=== PATIENT | male | born 1955 | race Caucasian/White ===

== ENCOUNTER → 2021-08-26 08:08 | Outpatient (BNVA) | payer BC, MEDICARE, SELFPAY | PROVIDERS: PCP Internal Medicine; Referring Provider Internal Medicine; Visit Provider Nurse Practitioner Family ==

== ENCOUNTER 2021-12-21 08:06 | Day surgery (SDC) | payer MEDICARE, SELFPAY ==
[2021-12-15 15:25] VITALS: BMI 27.8
--- NOTE | 2021-12-20 10:13 | P.CONAN_ITS ---
Documented by User: Brenda Hernandez NP 12/20/21 10:14 HPI - Anesthesia Eval Consult details Narrative: 66yo M for Upper Endoscopy and Colonoscopy [facility] Past Medical History Medical History (Updated 08/26/21 @ 08:31 by ANGEL Erazo) GERD (gastroesophageal reflux disease) HTN (hypertension) Family History Family History (Updated 08/26/21 @ 08:32 by ANGEL Erazo) Father HTN (hypertension) Mother Cancer Sister Cancer Surgical History Surgical History (Updated 08/26/21 @ 08:31 by ANGEL Erazo) History of esophagogastroduodenoscopy (EGD) Hx of hernia repair Social History Social History Patient Tobacco Use Status: Former Tobacco user Quit Date: 2015 Use of substances other than those prescribed or required for medical reasons: No Are you DNR?: No Advance Directives: No Advance Directives Information Provided: Yes Meds Allergies Allergy/AdvReac Type Severity Reaction Status Date / Time ibuprofen Allergy Mild tongue Verified 08/26/21 08:29 swelling Home Medications Medication Instructions Recorded Confirmed Last Taken Type amlodipine 5 mg tablet 5 mg PO DAILY 08/26/21 12/15/21 12/21/21 History atenolol 25 mg tablet 25 mg PO DAILY 08/26/21 12/15/21 12/21/21 History furosemide 20 mg tablet 20 mg PO DAILY 08/26/21 12/15/21 Unknown History losartan 100 mg tablet 100 mg PO DAILY 08/26/21 12/15/21 Unknown History pantoprazole 40 mg tablet,delayed 40 mg PO DAILY 08/26/21 12/15/21 Unknown History release Exam Exam Date and Time: December 20, 2021 1013 Height,Weight and Vital Signs: Height 5 ft 8 in Weight 83.007 kg Assessment and Plan Assessment Anesthesia Assessment: Chart Reviewed Documented by User: Manny Nicole MD 12/21/21 08:58 [facility] Past Medical History Medical History (Updated 08/26/21 @ 08:31 by ANGEL Erazo) GERD (gastroesophageal reflux disease) HTN (hypertension) Family History Family History (Updated 08/26/21 @ 08:32 by ANGEL Erazo) Father HTN (hypertension) Mother Cancer Sister Cancer Family history of problems with anesthesia: No Surgical History Surgical History (Updated 08/26/21 @ 08:31 by ANGEL Erazo) History of esophagogastroduodenoscopy (EGD) Hx of hernia repair History of Problems with Anesthesia: No Social History Social History Patient Tobacco Use Status: Former Tobacco user Quit Date: 2015 Use of substances other than those prescribed or required for medical reasons: No Are you DNR?: No Advance Directives: No Advance Directives Information Provided: Yes Meds Allergies Allergy/AdvReac Type Severity Reaction Status Date / Time ibuprofen Allergy Mild tongue Verified 08/26/21 08:29 swelling Home Medications Medication Instructions Recorded Confirmed Last Taken Type amlodipine 5 mg tablet 5 mg PO DAILY 08/26/21 12/15/21 12/21/21 History atenolol 25 mg tablet 25 mg PO DAILY 08/26/21 12/15/21 12/21/21 History furosemide 20 mg tablet 20 mg PO DAILY 08/26/21 12/15/21 Unknown History losartan 100 mg tablet 100 mg PO DAILY 08/26/21 12/15/21 Unknown History pantoprazole 40 mg tablet,delayed 40 mg PO DAILY 08/26/21 12/15/21 Unknown History release Exam Airway Mallampati Class: II TM Dist: >3cm Neck ROM: Full Denture: Upper Loose/Missing/Broken Teeth: Yes Assessment and Plan Assessment Anesthesia Assessment: Anesthesia Plan Discussed Final Anesthetic Review Family History of Problems with Anesthesia: No History of Problems with Anesthesia: No NPO: Yes ASA Class: II Final Preanesthetic Review: No Changes in Pt Med Stat, Meds/Allgs Chart Re viewed, Consent Obtained/Reviewed and Anes Risks/Benef Reviewed Patient Risk: Low Procedure Risk: Low Anesthetic Plan Anesthetic Plan: MAC: Disposition: Standard PACU
[2021-12-21 08:26] VITALS: BP 155/76; PULSE 60; RESP 16; TEMP 36.2; O2SAT 99
--- NOTE | 2021-12-21 08:31 | MHC.SHP ---
Pre-Procedural Eval Section A Date of Service: 12/21/21 Section B Chief Complaint: GERD, pos stool occult test Details of Present Illness: stool occult pos Relevant Family History (Specify if Yes): No Relevant Social History: Alcohol Use (daily beer) Present Medications: see Short Stay Collaborative assessment Medical History: Significant History (GERD, HTN) History of Previous Operations: Relevant previous surgery/procedure and date(s) (History of esophagogastroduodenoscopy (EGD) Hx of hernia repair) Allergies: Allergies Allergy/AdvReac Type Severity Reaction Status Date / Time ibuprofen Allergy Mild tongue Verified 08/26/21 08:29 swelling Review of Systems Sugical H&P ROS: Negative: Constitution, Cardiovascular, Respiratory, Neurological, Psychiatric, Hem-Onc, Allergic/Immunologic, Gastrointestinal, Genitourinary, Musculoskeletal, Integumentary, Endocrine and Eyes/Ears/Nose/Throat Exam Surgical H&P Exam: Normal: HEENT, Normal: Heart, Normal: Lungs, Normal: Extremities, Normal: Abdomen, Normal: Skin and Normal: Neurological Plan Diagnosis/Plan: Unchanged I have reviewed the history and physical and performed a pertinent physical examination on my patient. No changes have occurred unless specified.
[2021-12-21] MEDS: Lactated Ringers 1,000 ML 100 ML IVCONT (08:32)
--- NOTE | 2021-12-21 09:15 | P.OP_ITS ---
Operative Note Operative Note Date of Service: 12/21/21 Narrative: Operative Information Procedure Description: EGD, Colonoscopy Indication: GERD, pos stool occult test Anesthesia: MAC FLEXIBLE TRANSORAL UPPER GASTROINTESTINAL ENDOSCOPY AND COLONOSCOPY PROCEDURE NOTE UPPER ENDOSCOPY Consent: Indications for the procedure and potential complications of bleeding, perforation, reaction to medications and missed diagnosis were discussed with the patient and informed consent was obtained. Instrument: Olympus GIF H 190 J mid size upper endoscope Monitoring: Vital signs and clinical assessment, continuous EKG monitoring, Pulse oximetry, Carbon Dioxide monitoring and blood pressure monitoring were done throughout the procedure. Procedure: The patient was placed in the left lateral decubitis position and pre-procedure medications were administered and a bite block was placed. The endoscope was inserted into the mouth and advanced under direct vision to the third part of duodenum. A careful inspection was made as the upper endoscope was withdrawn including a retroflexed examination of the proximal stomach; Findings and interventions are described below. Findings: Larynx:normal Esophagus: GE junction at 40 cm, diaphragm hiatus at 40 cm, tongues of salmon pink mucosa, possible barretts, bx taken Stomach: Patchy erythema. Biopsies were obtained. Grade 2 flap valve on retroflexed examination of the cardia. Duodenum: Normal bulb and descending duodenum, Intervention: Biopsies as noted above COLONOSCOPY Instrument: Olympus variable stiffness adult scope 190L Colonoscopy Monitoring: Vital signs and clinical assessment, continuous EKG monitoring, Pulse oximetry, Carbon Dioxide monitoring and blood pressure monitoring were done throughout the procedure. Colon withdrawal time was 32 minutes. Procedure: The patient was placed in the left lateral decubitis position and pre-procedure medications were administered. After a digital rectal examination of the ano-rectum, the video colonoscope was inserted into the rectum and advanced through the colon to the cecum/TI. The colonoscope was slowly withdrawn in a retrograde panoramic fashion and the colon mucosa was carefully examined including a retroflexed view of the rectum. Findings and interventions are described below. Procedure Difficulty: difficult due to severe diverticulosis Findings: Terminal Ileum-normal Cecum:normal Ascending Colon: 12-14 mm sessile polyp removed with cold snare Transverse Colon -normal Descending Colon: x 3 sessile polyps noted. x 2 were 12-14 mm and removed with cold snare. one was 7-8 mm removed with cold forceps Sigmoid Colon: severe diverticulosis with wide mouthed tics. Rectum: Retroflexion with medium internal hemorrhoids, grade II. 14-15 mm semip edunculated polyp removed with cold snare Anorectum - normal Colon preparation: [place] Bowel Preparation Scale Right colon; 2 Transverse colon: 2 Left colon; 2 (0 = Unprepared colon segment with mucosa not seen due to solid stool that cannot be cleared. 1 = Portion of mucosa of the colon segment seen, but other areas of the colon segment not well seen due to staining, residual stool and/or opaque liquid. 2 = Minor amount of residual staining, small fragments of stool and/or opaque liquid, but mucosa of colon segment seen well. 3 = Entire mucosa of colon segment seen well with no residual staining, small fragments of stool or opaque liquid) Impression and Post Procedure Diagnosis: Endoscopy Findings: gastritis possible barretts Colonoscopy Findings: polyps internal hemorrhoids diverticular disease, severe Plan: Await Pathology results Repeat Colonoscopy in 8-12 months or earlier if clinically indicated High fiber diet leaflet avoid straining at stool, epsom salts and sitz bath, anusol supps or cream if Barretts os then repet EGD in 3-5 years Above findings were reviewed with the patient and relevant handouts were provided if indicated.
--- NOTE | 2021-12-21 09:15 | PM.OP ---
Brief Operative Note Date of Service: 12/21/21 Pre-op diagnosis: GERD, pos stool occult test Post-op diagnosis: same Procedure: see op note Surgeon: Carla Thorne MD Anesthesia: MAC Was an Public Health Inspector used for this Procedure?: No Estimated blood loss (mL): 0 Condition: stable Disposition: PACU
[2021-12-21 10:36] VITALS: BP 125/76; PULSE 55; RESP 16; TEMP 36.4; O2SAT 95
[2021-12-21 10:51] VITALS: BP 149/87; PULSE 57; RESP 16; TEMP 36.1; O2SAT 98
== END 2021-12-21 11:22 | disposition home or self-care (01) ==
PROVIDERS: PCP Internal Medicine; Visit Provider Internal Medicine Gastroenterology
PROC: (CPT 45385; principal; 2021-12-21 09:20)
DX: Z12.11 Encounter for screening for malignant neoplasm of colon (principal); D12.2 Benign neoplasm of ascending colon; D12.4 Benign neoplasm of descending colon; D12.8 Benign neoplasm of rectum; K57.30 Diverticulosis of large intestine without perforation or abscess without bleeding; K64.1 Second degree hemorrhoids; K21.9 Gastro-esophageal reflux disease without esophagitis; K29.50 Unspecified chronic gastritis without bleeding; K44.9 Diaphragmatic hernia without obstruction or gangrene; I10 Essential (primary) hypertension; J44.9 Chronic obstructive pulmonary disease, unspecified; Z79.899 Other long term (current) drug therapy; Z88.8 Allergy status to other drugs, medicaments and biological substances; Z87.891 Personal history of nicotine dependence
CPT/HCPCS: 45385; 45380; 43239; 88305; 88342

== ENCOUNTER → 2022-01-04 14:02 | Outpatient (BNVA) | payer MEDICARE, SELFPAY | PROVIDERS: PCP Internal Medicine; Referring Provider Internal Medicine; Visit Provider Nurse Practitioner Family | DX: K21.9 Gastro-esophageal reflux disease without esophagitis (principal); K52.9 Noninfective gastroenteritis and colitis, unspecified; R14.0 Abdominal distension (gaseous); D36.9 Benign neoplasm, unspecified site; Z98.890 Other specified postprocedural states | CPT/HCPCS: 99212 ==

== ENCOUNTER 2022-01-05 07:08 | Outpatient (REF) | payer MEDICARE, SELFPAY ==
[2022-01-05 08:30] LABS: Amylase 20 U/L (28-100); Lipase 47 U/L (8-78)
[2022-01-05 09:24] LABS: Folate > 20.0 ng/mL (> or = 4.0); Vitamin B12 539 pg/mL (200-900)
[2022-01-07 13:01] LABS: Transglutaminase Ab IgG <1.0 U/mL; Transglutaminase IgA <1.0 U/mL
[2022-01-10 14:01] LABS: Vitamin D 25-OH, D2 <4 ng/mL; Vitamin D 25-OH, D3 50 ng/mL; Vitamin D 25-OH, Total 50 ng/mL (30-100)
== END 2022-01-05 07:09 | disposition home or self-care (01) ==
LOC: HO.LAB 07:08
PROVIDERS: PCP Internal Medicine; Visit Provider Nurse Practitioner Family
DX: R10.9 Unspecified abdominal pain (principal); R19.7 Diarrhea, unspecified; E55.9 Vitamin D deficiency, unspecified; K21.9 Gastro-esophageal reflux disease without esophagitis
CPT/HCPCS: 36415; 82150; 82306; 82607; 82746; 83690; 86364

== ENCOUNTER 2022-01-06 10:08 | Outpatient (REF) | payer MEDICARE, SELFPAY ==
[2022-01-11 18:46] LABS: Pancreatic Elastase-1 48 mcg/g
== END 2022-01-06 10:09 | disposition home or self-care (01) ==
LOC: HO.LNP 10:08
PROVIDERS: Visit Provider Nurse Practitioner Family
DX: R10.9 Unspecified abdominal pain (principal)
CPT/HCPCS: 82656

== ENCOUNTER 2022-01-07 08:17 | Outpatient (REF) | payer MEDICARE, SELFPAY ==
[2022-01-08 15:09] LABS: H Pylori Breath Test Negative (Negative)
== END 2022-01-07 08:18 | disposition home or self-care (01) ==
LOC: HO.LNP 08:17
PROVIDERS: PCP Internal Medicine; Referring Provider Internal Medicine; Visit Provider Internal Medicine Gastroenterology
DX: K21.9 Gastro-esophageal reflux disease without esophagitis (principal)
CPT/HCPCS: 83013; 99211

== ENCOUNTER → 2022-01-18 11:37 | Outpatient (BNVA) | payer MEDICARE, SELFPAY | PROVIDERS: PCP Internal Medicine; Visit Provider Nurse Practitioner Family | DX: K86.89 Other specified diseases of pancreas (principal); K21.9 Gastro-esophageal reflux disease without esophagitis; R14.0 Abdominal distension (gaseous); K52.9 Noninfective gastroenteritis and colitis, unspecified | CPT/HCPCS: 99212 ==

== ENCOUNTER → 2022-04-25 07:50 | Outpatient (BNVA) | payer MEDICARE, SELFPAY | PROVIDERS: PCP Internal Medicine; Referring Provider Internal Medicine; Visit Provider Nurse Practitioner Family | DX: K86.89 Other specified diseases of pancreas (principal); K21.9 Gastro-esophageal reflux disease without esophagitis; R14.0 Abdominal distension (gaseous); Z86.010 Personal history of colon polyps | CPT/HCPCS: 99212 ==

== ENCOUNTER 2022-10-11 06:55 | Day surgery (SDC) | payer MEDICARE, SELFPAY ==
[2022-10-06 10:26] VITALS: BMI 27.7
[2022-10-11 07:07] VITALS: BP 128/60; PULSE 64; RESP 18; TEMP 36.8; O2SAT 99; BMI 27.8
[2022-10-11 07:13] VITALS: BMI 27.8
[2022-10-11] MEDS: Lactated Ringers 1,000 ML 50 ML IVCONT (07:42)
--- NOTE | 2022-10-11 08:13 | MHC.SHP ---
Pre-Procedural Eval Section A Date of Service: 10/11/22 Section B Chief Complaint: hx of polyps Relevant Family History (Specify if Yes): No Relevant Social History: None Present Medications: see Short Stay Collaborative assessment Medical History: Significant History (GERD (gastroesophageal reflux disease) HTN (hypertension) Pancreatic insufficiency Tubulovillous adenoma) History of Previous Operations: Relevant previous surgery/procedure and date(s) (History of esophagogastroduodenoscopy (EGD) Hx of colonoscopy Hx of hernia repair) Allergies: Allergies Allergy/AdvReac Type Severity Reaction Status Date / Time ibuprofen Allergy Mild tongue Verified 04/25/22 07:58 swelling Review of Systems Sugical H&P ROS: Negative: Constitution, Cardiovascular, Respiratory, Neurological, Psychiatric, Hem-Onc, Allergic/Immunologic, Gastrointestinal, Genitourinary, Musculoskeletal, Integumentary, Endocrine and Eyes/Ears/Nose/Throat Exam Surgical H&P Exam: Normal: HEENT, Normal: Heart, Normal: Lungs, Normal: Extremities, Normal: Abdomen, Normal: Skin and Normal: Neurological Plan Diagnosis/Plan: Unchanged I have reviewed the history and physical and performed a pertinent physical examination on my patient. No changes have occurred unless specified. Time Spent With Patient Time: Total time managing care of this patient today ____ minutes.
--- NOTE | 2022-10-11 08:49 | HO.ANESPROP2 ---
HPI - Anesthesia Eval Consult details Narrative: personal ho polyps screening PMFSH Active Problems Active Problems: All Active Problems (Updated 10/11/22 @ 07:18 by Jessica Barber RN) Tubulovillous adenoma (Acute) Past Medical History Medical History (Updated 10/11/22 @ 07:18 by Jessica Barber RN) GERD (gastroesophageal reflux disease) HTN (hypertension) Lupus Pancreatic insufficiency Tubulovillous adenoma Family History Family History Father HTN (hypertension) Mother Cancer Sister Cancer Family history of problems with anesthesia: No Surgical History Surgical History (Updated 10/06/22 @ 10:24 by Emma Gore RN) History of esophagogastroduodenoscopy (EGD) Hx of colonoscopy Hx of hernia repair History of Problems with Anesthesia: No Social History Social History Patient Tobacco Use Status: Former Tobacco user Quit Date: 2015 Use of substances other than those prescribed or required for medical reasons: No Are you DNR?: No Advance Directives: No Advance Directives Information Provided: Yes Meds Allergies Allergy/AdvReac Type Severity Reaction Status Date / Time ibuprofen Allergy Mild tongue Verified 04/25/22 07:58 swelling Active Medications: Current Medications Lactated Ringer's (Lr) 1,000 mls @ 50 mls/hr IVCONT .Q20H CHRISTOPHER Last Admin: 10/11/22 07:42 Dose: 50 mls/hr Home Medications Medication Instructions Recorded Confirmed Last Taken Type amlodipine 5 mg tablet 5 mg PO DAILY 08/26/21 10/11/22 12/21/21 History atenolol 25 mg tablet 75 mg PO DAILY 08/26/21 10/11/22 12/21/21 History furosemide 20 mg tablet 20 mg PO DAILY 08/26/21 10/11/22 Unknown History losartan 100 mg tablet 100 mg PO DAILY 08/26/21 10/11/22 Unknown History Exam Exam Date and Time: October 11, 2022 0849 Height,Weight and Vital Signs: Height 5 ft 7 in Weight 80.739 kg Last Vital Signs Temp 98.2 F 10/11/22 07:07 Pulse 64 10/11/22 07:07 Resp 18 10/11/22 07:07 BP 128/60 10/11/22 07:07 Pulse Ox 99 10/11/22 07:07 O2 Del Method 10/11/22 07:07 Airway Mallampati Class: II Neck ROM: Full Heart: rr Lungs: cta Assessment and Plan Final Anesthetic Review Family History of Problems with Anesthesia: No History of Problems with Anesthesia: No NPO: Yes ASA Class: II Final Preanesthetic Review: No Changes in Pt Med Stat, Meds/Allgs Chart Reviewed, Consent Obtained/Reviewed and Anes Risks/Benef Reviewed Patient Risk: Low Procedure Risk: Low Anesthetic Plan Anesthetic Plan: MAC: Disposition: Standard PACU
--- NOTE | 2022-10-11 09:02 | P.OP_ITS ---
Operative Note Operative Note Date of Service: 10/11/22 Narrative: Operative Information Procedure Description: Colonoscopy Indication: hx of colon polyps Anesthesia: MAC COLONOSCOPY Instrument: Olympus variable stiffness pediatric scope 190L Colonoscopy Monitoring: Vital signs and clinical assessment, continuous EKG monitoring, Pulse oximetry, Carbon Dioxide monitoring and blood pressure monitoring were done throughout the procedure. Colon withdrawal time was 10 minutes. Procedure: The patient was placed in the left lateral decubitis position and pre-procedure medications were administered. After a digital rectal examination of the ano-rectum, the video colonoscope was inserted into the rectum and advanced through the colon to the cecum/TI. The colonoscope was slowly withdrawn in a retrograde panoramic fashion and the colon mucosa was carefully examined including a retroflexed view of the rectum. Findings and interventions are described below. Procedure Difficulty: difficult due to severe diverticulosis Findings: Terminal Ileum-normal Cecum:normal Ascending Colon: few diverticula seen Transverse Colon - x 2 sessile polyps 10-13 mm both removed with cold snare Descending Colon: mild diverticulosis Sigmoid Colon: severe diverticulosis with wide mouthed tics and tight colon angles Rectum: Retroflexion with medium internal hemorrhoids, grade II. Anorectum - normal Colon preparation: [place] Bowel Preparation Scale Right colon; 3 Transverse colon: 2 Left colon; 1-2 (0 = Unprepared colon segment with mucosa not seen due to solid stool that cannot be cleared. 1 = Portion of mucosa of the colon segment seen, but other areas of the colon segment not well seen due to staining, residual stool and/or opaque liquid. 2 = Minor amount of residual staining, small fragments of stool and/or opaque liquid, but mucosa of colon segment seen well. 3 = Entire mucosa of colon segment seen well with no residual staining, small fragments of stool or opaque liquid) Impression and Post Procedure Diagnosis: polyps internal hemorrhoids diverticular disease Plan: High fiber diet leaflet Avoid straining at stool, epsom salts and sitz bath, anusol supps or cream Repeat Colonoscopy in 1 year due to fair prep on left and hx of polyps or earlier if clinically indicated Above findings were reviewed with the patient and relevant handouts were provided if indicated.
[2022-10-11 09:07] VITALS: BP 104/64; PULSE 57; RESP 16; TEMP 36.6; O2SAT 95
[2022-10-11 09:22] VITALS: BP 123/73; PULSE 52; RESP 18; TEMP 36.3; O2SAT 99
== END 2022-10-11 09:50 | disposition home or self-care (01) ==
PROVIDERS: PCP Internal Medicine; Visit Provider Internal Medicine Gastroenterology
PROC: 0DJD8ZZ Inspection of Lower Intestinal Tract, Via Natural or Artificial Opening Endoscopic (ICD-10-PCS; CPT 45378; principal; 2022-10-11 08:10)
DX: D12.3 Benign neoplasm of transverse colon (principal); K57.30 Diverticulosis of large intestine without perforation or abscess without bleeding; Z86.010 Personal history of colon polyps
CPT/HCPCS: 45385; 88305

== ENCOUNTER → 2022-10-24 07:49 | Outpatient (BNVA) | payer MEDICARE, SELFPAY | PROVIDERS: PCP Internal Medicine; Referring Provider Internal Medicine; Visit Provider Nurse Practitioner Family | DX: K21.9 Gastro-esophageal reflux disease without esophagitis (principal); K86.81 Exocrine pancreatic insufficiency; R14.0 Abdominal distension (gaseous); D36.9 Benign neoplasm, unspecified site | CPT/HCPCS: 99212 ==

== ENCOUNTER 2022-11-06 19:06 | Emergency (ER) | payer MEDICARE, SELFPAY ==
--- NOTE | ~2022-11-06 | CT_ITS ---
EXAMINATION: CT ANGIOGRAM OF THE CHEST WITH AND WITHOUT CONTRAST (CT PULMONARY ANGIOGRAM FOR PE) CLINICAL INFORMATION: Right-sided chest pain. Question pulmonary embolism. COMPARISON: CT chest 11/07/2017. TECHNIQUE: Prior to contrast administration, noncontrast localization images were obtained. Subsequently, multidetector volumetric imaging was performed from the thoracic inlet to below the diaphragms following the administration of 65 mL Omnipaque 350 intravenous contrast. No contrast reaction reported Sagittal, coronal, and MIP oblique sagittal reformatted images were obtained on the CT workstation, uploaded to PACS, and reviewed. This CT examination was performed using dose optimization techniques as appropriate, variously including the following: *Automated exposure control *Adjustment of mA and/or kV according to patient size (this includes techniques or standardized protocols for targeted exams where dose is matched to indication/reason for exam; i.e. extremities or head) *Use of iterative reconstruction technique Total exam dose-length product 394 mGy-cm FINDINGS: QUALITY OF STUDY/CONTRAST BOLUS: Enhancement is satisfactory; however, multiple respiratory motion artifacts somewhat limit evaluation. PULMONARY ARTERIES: No pulmonary emboli. THORACIC AORTA: No aneurysm. LUNG: Evaluation is limited due to multiple respiratory motion artifacts. No definite focal pulmonary nodules are seen. No focal consolidation or mass. Mild biapical paraseptal bullous changes. PLEURA: No pleural effusion or pneumothorax. MEDIASTINUM: Normal heart size. No pericardial effusion. No hilar or mediastinal lymphadenopathy. No evidence of septal bowing or right heart strain. CORONARY ARTERY CALCIFICATION: Minimal coronary calcifications are noted. CHEST WALL/AXILLA: No axillary or internal mammary lymphadenopathy. OSSEOUS STRUCTURES: No acute or suspicious osseous abnormality. Changes of diffuse idiopathic skeletal hyperostosis. UPPER ABDOMEN: An exophytic 3 cm hypodense lesion from the [id number] left kidney posteriorly represents a cyst by CT Hounsfield units criteria. Partially visualized 2 cm hypodense lesion in the [id number] right kidney represents a cyst by CT Hounsfield units criteria. 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 Stomach is moderate distended. No reflux of contrast into the hepatic veins to suggest elevated right heart pressures. CT/CT angio chest PE protocol IMPRESSION: 1. Multiple respiratory motion artifacts somewhat limit evaluation. No evidence of pulmonary embolism. 2. No acute pulmonary process. 3. Bilateral renal cysts, for which no further imaging follow-up is warranted. Note that the right renal cyst is partially visualized. VTE: negative
--- NOTE | ~2022-11-06 | XR_ITS ---
EXAMINATION: XR CHEST CLINICAL INFORMATION: Reason for Exam cp COMPARISON: Chest radiograph 12/23/1979 TECHNIQUE: One view of the chest FINDINGS: Clear lungs. No pneumothorax or pleural effusion. Unchanged cardiomediastinal silhouette. XR/XR chest 1V IMPRESSION: * Clear lungs.
--- NOTE | 2022-11-06 19:07 | ECG_ITS ---
Test Reason : CHEST PAIN Blood Pressure : / mmHG Vent. Rate : 064 BPM Atrial Rate : 064 BPM P-R Int : 184 ms QRS Dur : 096 ms QT Int : 430 ms P-R-T Axes : 048 018 045 degrees QTc Int : 443 ms Normal sinus rhythm Nonspecific ST abnormality Abnormal ECG When compared with ECG of 09-DEC-2016 02:35, Vent. rate has decreased BY [address] no longer depressed in Anterior leads Referred By: Marcela Hanson Electronically Signed By:Young Bauman
[2022-11-06 19:20] VITALS: BP 128/68; PULSE 66; RESP 18; TEMP 36.7; O2SAT 97; BMI 25.8
--- NOTE | 2022-11-06 19:21 | ED_ITS ---
HPI - Chest Pain General Chief Complaint: Chest Pain <LEIGHANN Davis - Last Filed: 11/06/22 19:22> Stated Complaint: chest pain, hurts to breathe <LEIGHANN Davis - Last Filed: 11/06/22 19:22> Time Seen by Provider: 11/06/22 21:18 <LEIGHANN Davis - Last Filed: 11/06/22 19:22> Source: patient <Prakash Guevara MD - Last Filed: 11/07/22 00:29> Mode of arrival: ambulatory <Prakash Guevara MD - Last Filed: 11/07/22 00:29> Limitations: no limitations <Prakash Guevara MD - Last Filed: 11/07/22 00:29> History of Present Illness HPI narrative: Patient alcoholic ex-smoker with history of COPD and hypertension and lupus came here for sharp pain in right shoulder started early in the morning today while at rest during daytime it spreaded to the right chest and mid chest increases on deep breath patient does have occasional dry no fever no chills no significant shortness of breath no history of coronary artery disease no leg pain or leg swelling <Prakash Guevara MD - Last Filed: 11/07/22 00:29> Related Data Home Medications: Home Medications Medication Instructions Recorded Confirmed amlodipine 5 mg tablet 5 mg PO DAILY 08/26/21 10/11/22 atenolol 25 mg tablet 75 mg PO DAILY 08/26/21 10/11/22 furosemide 20 mg tablet 20 mg PO DAILY 08/26/21 10/11/22 losartan 100 mg tablet 100 mg PO DAILY 08/26/21 10/11/22 Previous Rx's Medication Instructions Recorded esomeprazole magnesium 40 mg 40 mg PO DAILY #90 caps 10/24/22 capsule,delayed release (Nexium) rjnsuf-[id number] 1 cap PO QID #120 caps 10/24/22 24,000-76,000-120,000 unit capsule,delayed rel (Creon) tramadol 50 mg tablet 50 mg PO Q6H PRN pain #20 tabs 11/07/22 <LEIGHANN Davis - Last Filed: 11/06/22 19:22> Allergies/Adverse Reactions: Allergies Allergy/AdvReac Type Severity Reaction Status Date / Time ibuprofen Allergy Mild tongue Verified 10/24/22 08:06 swelling <LEIGHANN Davis - Last Filed: 11/06/22 19:22> Review of Systems Review of Systems: Yes all other systems are reviewed and are negative <Prakash Guevara MD - Last Filed: 11/07/22 00:29> [facility] Past Medical History Medical History: Medical History GERD (gastroesophageal reflux disease) HTN (hypertension) Lupus Pancreatic insufficiency Tubular adenoma Tubulovillous adenoma <LEIGHANN Davis - Last Filed: 11/06/22 19:22> Surgical History: Surgical History History of esophagogastroduodenoscopy (EGD) Hx of colonoscopy Hx of hernia repair <LEIGHANN Davis - Last Filed: 11/06/22 19:22> Family History Family History: Family History Father HTN (hypertension) Mother Cancer Sister Cancer <LEIGHANN Davis - Last Filed: 11/06/22 19:22> Social History Social History: Social History Alcohol intake: current Alcohol intake frequency: 3 or more drinks per day Alcohol type: beer Patient Tobacco Use Status: Former Tobacco user Quit Date: 2015 Smoked in Last 30 Days: No Use of substances other than those prescribed or required for medical reasons: No Advance Directives: No Advance Directives Information Provided: No <LEIGHANN Davis - Last Filed: 11/06/22 19:22> Physical Exam Vital Signs: Vital Signs: Last Vital Signs Temp 98.3 F 11/06/22 21:25 Pulse 71 11/06/22 21:25 Resp 22 H 11/06/22 21:25 BP 139/80 11/06/22 21:25 Pulse Ox 98 11/06/22 21:25 O2 Del Method Room Air 11/06/22 19:20 BMI result Body Mass Index 25.8 <LEIGHANN Davis - Last Filed: 11/06/22 19:22> Vital Signs: Last Vital Signs Temp 98.3 F 11/06/22 21:25 Pulse 71 11/06/22 21:25 Resp 22 H 11/06/22 21:25 BP 139/80 11/06/22 21:25 Pulse Ox 98 11/06/22 21:25 O2 Del Method Room Air 11/06/22 19:20 BMI result Body Mass Index 25.8 <Prakash Guevara MD - Last Filed: 11/07/22 00:29> Appearance: Alert. Oriented X3. No acute distress. Eyes: PERRLA, No Nystagmus ENT: Pharynx normal. Oral Mucosa moist Neck: Normal inspection. Neck supple. CVS: Normal heart rate and rhythm. Pulses normal. Respiratory: No respiratory distress. Equal air entry bilateral, no wheezing/rales/rhonchi Abdomen: Soft and nontender. Bowel sounds are present, no mass palpable, no CVA tenderness Skin: Skin warm and dry. Normal skin color. Normal skin turgor. Extremities: No lower extremity edema. No calf tenderness Neuro: Oriented X 3. No motor deficit. <Prakash Guevara MD - Last Filed: 11/07/22 00:29> Course Course Course Narrative: This is an RME: Additional HPI, ROS, PE not included below will be deferred to primary provider. 67-year-old male history of lupus, hypertension, COPD presenting for evaluation of pleuritic chest pain, shortness since this morning. Patient reports substernal chest pressure that is worse with inspiration. He tells me initially he thought it was just a muscle cramp in his right chest but then he started having constant substernal chest pressure worse with deep breathing. Not anticoagulated. Physical exam benign. Patient will appearing. Plan EKG, troponin, BNP, D-dimer, chest x-ray. <LEIGHANN Davis - Last Filed: 11/06/22 19:22> Medications Administered Discontinued Medications Generic Name Dose Route Start Last Admin Trade Name Freq PRN Reason Stop Dose Admin Iohexol 100 ml 11/06/22 22:27 11/06/22 22:27 Iohexol 350 Mg/Ml 100 Ml Infus..Btl IV 11/06/22 22:28 65 ml ONCE ONE Administration Morphine Sulfate 4 mg 11/06/22 23:36 11/06/22 23:49 Morphine Sulfate 4 Mg/Ml Cartridge IVPUSH 11/06/22 23:37 4 mg ONCE ONE Administration Protocol Ondansetron HCl 4 mg 11/06/22 23:36 11/06/22 23:49 Ondansetron Hcl 4 Mg/2 Ml Vial IVPUSH 11/06/22 23:37 4 mg ONCE ONE Administration <LEIGHANN Davis - Last Filed: 11/06/22 19:22> Medications Administered Discontinued Medications Generic Name Dose Route Start Last Admin Trade Name Munira PRN Reason Stop Dose Admin Iohexol 100 ml 11/06/22 22:27 11/06/22 22:27 Iohexol 350 Mg/Ml 100 Ml Infus..Btl IV 11/06/22 22:28 65 ml ONCE ONE Administration Morphine Sulfate 4 mg 11/06/22 23:36 11/06/22 23:49 Morphine Sulfate 4 Mg/Ml Cartridge IVPUSH 11/06/22 23:37 4 mg ONCE ONE Administration Protocol Ondansetron HCl 4 mg 11/06/22 23:36 11/06/22 23:49 Ondansetron Hcl 4 Mg/2 Ml Vial IVPUSH 11/06/22 23:37 4 mg ONCE ONE Administration <Prakash Guevara MD - Last Filed: 11/07/22 00:29> Medical Decision Making Medical Decision Making [facility] Narrative: Patient's right-sided chest pain etiology not very clear workup for PE was -ve, 2 sets of high sensitive troponin negative no acute EKG changes of ischemia will discharge patient home advised to follow up with PCP for further management possibly patient has pleurisy <Prakash Guevara MD - Last Filed: 11/07/22 00:29> Differential Diagnosis ACS/PE/pneumonia/pneumothorax/musculoskeletal <Prakash Guevara MD - Last Filed: 11/07/22 00:29> Lab Data [facility] Lab Attestation statement: I reviewed the patient's lab results. <Prakash Guevara MD - Last Filed: 11/07/22 00:29> Result Diagrams: 11/06/22 19:24 11/06/22 19:24 <LEIGHANN Davis - Last Filed: 11/06/22 19:22> Labs: Lab Results 11/06/22 11/06/22 11/06/22 Range/Units 19:24 19:24 19:24 WBC 9.2 (4.8-10.8) X10*3/uL RBC 4.23 L (4.60-5.80) X10*6/uL Hgb 14.1 (14.0-18.0) g/dl Hct 39.9 L (42.0-52.0) % MCV 94.3 (80.0-98.0) fL MCH 33.3 H (27.0-33.0) pg MCHC 35.3 (31.0-36.0) g/dl RDW 12.2 (11.0-16.0) % Plt Count 246 (160-400) X10*3/uL MPV 8.4 L (9.4-12.4) fL Immature Gran % (Auto) 0.5 H (0.0-0.4) % Neut % (Auto) 51.1 (45-73) % Lymph % (Auto) 33.3 (20-40) % Brewster % (Auto) 11.3 H (2-11) % Eos % (Auto) 2.7 (0-4) % Baso % (Auto) 1.1 (0-2) % Lymph # (Auto) 3.1 (1.2-4.9) X10*3/uL Brewster # (Auto) 1.0 (0.1-1.2) X10*3/uL Eos # (Auto) 0.3 (0.0-0.4) X10*3/uL Baso # (Auto) 0.1 (0.0-0.2) X10*3/uL Abs Immat Gran (auto) 0.05 H (0.00-0.03) X10*3/uL Absolute Neuts (auto) 4.7 (2.0-8.3) x10*3/uL Absolute Nucleated RBC 0.000 (0.0-0.012) X10*3/uL Nucleated RBC % (auto) 0.0 (0.0-0.2) /100WBC D-Dimer High Sensitivty NG/ML Sodium 136 (135-145) mmol/L Potassium 3.7 (3.3-5.1) mmol/L Chloride 99 (96-108) mmol/L Carbon Dioxide 23 (22-29) mmol/L Anion Gap 18 (12-20) BUN 9 (9-16) mg/dL Creatinine 0.96 (0.5-1.4) mg/dL Estim Creat Clear Calc 71.2 Estimated GFR > 60 Random Glucose 121 H (60-115) mg/dL Calcium 8.7 (8.4-10.2) mg/dL Magnesium 1.9 (1.6-2.6) mg/dL Total Bilirubin 0.6 (0.0-1.0) mg/dL AST 21 (5-37) U/L ALT 25 (0-40) U/L Alkaline Phosphatase 88 (39-117) U/L Troponin I High Sens (<3.5-35.0) ng/L B-Natriuretic Peptide (<100) pg/mL Total Protein 6.5 (6.5-8.0) g/dL Albumin 4.1 (3.5-5.0) g/dL Urine Color Urine Appearance Urine pH (5.0-9.0) Ur Specific Irving (1.005-1.025) Urine Protein (Neg-Trace) mg/dL Urine Glucose (UA) (Negative) mg/dL Urine Ketones (Negative) mg/dL Urine Blood (Negative) Urine Nitrite (Negative) Ur Leukocyte Esterase (Negative) COVID-19 ([facility]) Negative (Negative) COVID-19 Clin Com See Note 11/06/22 11/06/22 11/06/22 Range/Units 19:24 19:24 19:24 WBC (4.8-10.8) X10*3/uL RBC (4.60-5.80) X10*6/uL Hgb (14.0-18.0) g/dl Hct (42.0-52.0) % MCV (80.0-98.0) fL MCH (27.0-33.0) pg MCHC (31.0-36.0) g/dl RDW (11.0-16.0) % Plt Count (160-400) X10*3/uL MPV (9.4-12.4) fL Immature Gran % (Auto) (0.0-0.4) % Neut % (Auto) (45-73) % Lymph % (Auto) (20-40) % Brewster % (Auto) (2-11) % Eos % (Auto) (0-4) % Baso % (Auto) (0-2) % Lymph # (Auto) (1.2-4.9) X10*3/uL Brewster # (Auto) (0.1-1.2) X10*3/uL Eos # (Auto) (0.0-0.4) X10*3/uL Baso # (Auto) (0.0-0.2) X10*3/uL Abs Immat Gran (auto) (0.00-0.03) X10*3/uL Absolute Neuts (auto) (2.0-8.3) x10*3/uL Absolute Nucleated RBC (0.0-0.012) X10*3/uL Nucleated RBC % (auto) (0.0-0.2) /100WBC D-Dimer High Sensitivty 165 NG/ML Sodium (135-145) mmol/L Potassium (3.3-5.1) mmol/L Chloride (96-108) mmol/L Carbon Dioxide (22-29) mmol/L Anion Gap (12-20) BUN (9-16) mg/dL Creatinine (0.5-1.4) mg/dL Estim Creat Clear Calc Estimated GFR Random Glucose (60-115) mg/dL Calcium (8.4-10.2) mg/dL Magnesium (1.6-2.6) mg/dL Total Bilirubin (0.0-1.0) mg/dL AST (5-37) U/L ALT (0-40) U/L Alkaline Phosphatase (39-117) U/L Troponin I High Sens < 3.5 (<3.5-35.0) ng/L B-Natriuretic Peptide 113 H (<100) pg/mL Total Protein (6.5-8.0) g/dL Albumin (3.5-5.0) g/dL Urine Color Urine Appearance Urine pH (5.0-9.0) Ur Specific Irving (1.005-1.025) Urine Protein (Neg-Trace) mg/dL Urine Glucose (UA) (Negative) mg/dL Urine Ketones (Negative) mg/dL Urine Blood (Negative) Urine Nitrite (Negative) Ur Leukocyte Esterase (Negative) COVID-19 ([facility]) (Negative) COVID-19 Clin Com 11/06/22 11/06/22 Range/Units 21:36 23:33 WBC (4.8-10.8) X10*3/uL RBC (4.60-5.80) X10*6/uL Hgb (14.0-18.0) g/dl Hct (42.0-52.0) % MCV (80.0-98.0) fL MCH (27.0-33.0) pg MCHC (31.0-36.0) g/dl RDW (11.0-16.0) % Plt Count (160-400) X10*3/uL MPV (9.4-12.4) fL Immature Gran % (Auto) (0.0-0.4) % Neut % (Auto) (45-73) % Lymph % (Auto) (20-40) % Brewster % (Auto) (2-11) % Eos % (Auto) (0-4) % Baso % (Auto) (0-2) % Lymph # (Auto) (1.2-4.9) X10*3/uL Brewster # (Auto) (0.1-1.2) X10*3/uL Eos # (Auto) (0.0-0.4) X10*3/uL Baso # (Auto) (0.0-0.2) X10*3/uL Abs Immat Gran (auto) (0.00-0.03) X10*3/uL Absolute Neuts (auto) (2.0-8.3) x10*3/uL Absolute Nucleated RBC (0.0-0.012) X10*3/uL Nucleated RBC % (auto) (0.0-0.2) /100WBC D-Dimer High Sensitivty NG/ML Sodium (135-145) mmol/L Potassium (3.3-5.1) mmol/L Chloride (96-108) mmol/L Carbon Dioxide (22-29) mmol/L Anion Gap (12-20) BUN (9-16) mg/dL Creatinine (0.5-1.4) mg/dL Estim Creat Clear Calc Estimated GFR Random Glucose (60-115) mg/dL Calcium (8.4-10.2) mg/dL Magnesium (1.6-2.6) mg/dL Total Bilirubin (0.0-1.0) mg/dL AST (5-37) U/L ALT (0-40) U/L Alkaline Phosphatase (39-117) U/L Troponin I High Sens < 3.5 (<3.5-35.0) ng/L B-Natriuretic Peptide (<100) pg/mL Total Protein (6.5-8.0) g/dL Albumin (3.5-5.0) g/dL Urine Color Yellow Urine Appearance Clear Urine pH 5.5 (5.0-9.0) Ur Specific Irving >= 1.030 H (1.005-1.025) Urine Protein Negative (Neg-Trace) mg/dL Urine Glucose (UA) Negative (Negative) mg/dL Urine Ketones Negative (Negative) mg/dL Urine Blood Negative (Negative) Urine Nitrite Negative (Negative) Ur Leukocyte Esterase Negative (Negative) COVID-19 ([facility]) (Negative) COVID-19 Clin Com <LEIGHANN Davis - Last Filed: 11/06/22 19:22> Lab Results 11/06/22 11/06/22 11/06/22 Range/Units 19:24 19:24 19:24 WBC 9.2 (4.8-10.8) X10*3/uL RBC 4.23 L (4.60-5.80) X10*6/uL Hgb 14.1 (14.0-18.0) g/dl Hct 39.9 L (42.0-52.0) % MCV 94.3 (80.0-98.0) fL MCH 33.3 H (27.0-33.0) pg MCHC 35.3 (31.0-36.0) g/dl RDW 12.2 (11.0-16.0) % Plt Count 246 (160-400) X10*3/uL MPV 8.4 L (9.4-12.4) fL Immature Gran % (Auto) 0.5 H (0.0-0.4) % Neut % (Auto) 51.1 (45-73) % Lymph % (Auto) 33.3 (20-40) % Brewster % (Auto) 11.3 H (2-11) % Eos % (Auto) 2.7 (0-4) % Baso % (Auto) 1.1 (0-2) % Lymph # (Auto) 3.1 (1.2-4.9) X10*3/uL Brewster # (Auto) 1.0 (0.1-1.2) X10*3/uL Eos # (Auto) 0.3 (0.0-0.4) X10*3/uL Baso # (Auto) 0.1 (0.0-0.2) X10*3/uL Abs Immat Gran (auto) 0.05 H (0.00-0.03) X10*3/uL Absolute Neuts (auto) 4.7 (2.0-8.3) x10*3/uL Absolute Nucleated RBC 0.000 (0.0-0.012) X10*3/uL Nucleated RBC % (auto) 0.0 (0.0-0.2) /100WBC D-Dimer High Sensitivty NG/ML Sodium 136 (135-145) mmol/L Potassium 3.7 (3.3-5.1) mmol/L Chloride 99 (96-108) mmol/L Carbon Dioxide 23 (22-29) mmol/L Anion Gap 18 (12-20) BUN 9 (9-16) mg/dL Creatinine 0.96 (0.5-1.4) mg/dL Estim Creat Clear Calc 71.2 Estimated GFR > 60 Random Glucose 121 H (60-115) mg/dL Calcium 8.7 (8.4-10.2) mg/dL Magnesium 1.9 (1.6-2.6) mg/dL Total Bilirubin 0.6 (0.0-1.0) mg/dL AST 21 (5-37) U/L ALT 25 (0-40) U/L Alkaline Phosphatase 88 (39-117) U/L Troponin I High Sens (<3.5-35.0) ng/L B-Natriuretic Peptide (<100) pg/mL Total Protein 6.5 (6.5-8.0) g/dL Albumin 4.1 (3.5-5.0) g/dL Urine Color Urine Appearance Urine pH (5.0-9.0) Ur Specific Irving (1.005-1.025) Urine Protein (Neg-Trace) mg/dL Urine Glucose (UA) (Negative) mg/dL Urine Ketones (Negative) mg/dL Urine Blood (Negative) Urine Nitrite (Negative) Ur Leukocyte Esterase (Negative) COVID-19 ([facility]) Negative (Negative) COVID-19 Clin Com See Note 11/06/22 11/06/22 11/06/22 Range/Units 19:24 19:24 19:24 WBC (4.8-10.8) X10*3/uL RBC (4.60-5.80) X10*6/uL Hgb (14.0-18.0) g/dl Hct (42.0-52.0) % MCV (80.0-98.0) fL MCH (27.0-33.0) pg MCHC (31.0-36.0) g/dl RDW (11.0-16.0) % Plt Count (160-400) X10*3/uL MPV (9.4-12.4) fL Immature Gran % (Auto) (0.0-0.4) % Neut % (Auto) (45-73) % Lymph % (Auto) (20-40) % Brewster % (Auto) (2-11) % Eos % (Auto) (0-4) % Baso % (Auto) (0-2) % Lymph # (Auto) (1.2-4.9) X10*3/uL Brewster # (Auto) (0.1-1.2) X10*3/uL Eos # (Auto) (0.0-0.4) X10*3/uL Baso # (Auto) (0.0-0.2) X10*3/uL Abs Immat Gran (auto) (0.00-0.03) X10*3/uL Absolute Neuts (auto) (2.0-8.3) x10*3/uL Absolute Nucleated RBC (0.0-0.012) X10*3/uL Nucleated RBC % (auto) (0.0-0.2) /100WBC D-Dimer High Sensitivty 165 NG/ML Sodium (135-145) mmol/L Potassium (3.3-5.1) mmol/L Chloride (96-108) mmol/L Carbon Dioxide (22-29) mmol/L Anion Gap (12-20) BUN (9-16) mg/dL Creatinine (0.5-1.4) mg/dL Estim Creat Clear Calc Estimated GFR Random Glucose (60-115) mg/dL Calcium (8.4-10.2) mg/dL Magnesium (1.6-2.6) mg/dL Total Bilirubin (0.0-1.0) mg/dL AST (5-37) U/L ALT (0-40) U/L Alkaline Phosphatase (39-117) U/L Troponin I High Sens < 3.5 (<3.5-35.0) ng/L B-Natriuretic Peptide 113 H (<100) pg/mL Total Protein (6.5-8.0) g/dL Albumin (3.5-5.0) g/dL Urine Color Urine Appearance Urine pH (5.0-9.0) Ur Specific Irving (1.005-1.025) Urine Protein (Neg-Trace) mg/dL Urine Glucose (UA) (Negative) mg/dL Urine Ketones (Negative) mg/dL Urine Blood (Negative) Urine Nitrite (Negative) Ur Leukocyte Esterase (Negative) COVID-19 ([facility]) (Negative) COVID-19 Clin Com 11/06/22 11/06/22 Range/Units 21:36 23:33 WBC (4.8-10.8) X10*3/uL RBC (4.60-5.80) X10*6/uL Hgb (14.0-18.0) g/dl Hct (42.0-52.0) % MCV (80.0-98.0) fL MCH (27.0-33.0) pg MCHC (31.0-36.0) g/dl RDW (11.0-16.0) % Plt Count (160-400) X10*3/uL MPV (9.4-12.4) fL Immature Gran % (Auto) (0.0-0.4) % Neut % (Auto) (45-73) % Lymph % (Auto) (20-40) % Brewster % (Auto) (2-11) % Eos % (Auto) (0-4) % Baso % (Auto) (0-2) % Lymph # (Auto) (1.2-4.9) X10*3/uL Brewster # (Auto) (0.1-1.2) X10*3/uL Eos # (Auto) (0.0-0.4) X10*3/uL Baso # (Auto) (0.0-0.2) X10*3/uL Abs Immat Gran (auto) (0.00-0.03) X10*3/uL Absolute Neuts (auto) (2.0-8.3) x10*3/uL Absolute Nucleated RBC (0.0-0.012) X10*3/uL Nucleated RBC % (auto) (0.0-0.2) /100WBC D-Dimer High Sensitivty NG/ML Sodium (135-145) mmol/L Potassium (3.3-5.1) mmol/L Chloride (96-108) mmol/L Carbon Dioxide (22-29) mmol/L Anion Gap (12-20) BUN (9-16) mg/dL Creatinine (0.5-1.4) mg/dL Estim Creat Clear Calc Estimated GFR Random Glucose (60-115) mg/dL Calcium (8.4-10.2) mg/dL Magnesium (1.6-2.6) mg/dL Total Bilirubin (0.0-1.0) mg/dL AST (5-37) U/L ALT (0-40) U/L Alkaline Phosphatase (39-117) U/L Troponin I High Sens < 3.5 (<3.5-35.0) ng/L B-Natriuretic Peptide (<100) pg/mL Total Protein (6.5-8.0) g/dL Albumin (3.5-5.0) g/dL Urine Color Yellow Urine Appearance Clear Urine pH 5.5 (5.0-9.0) Ur Specific Irving >= 1.030 H (1.005-1.025) Urine Protein Negative (Neg-Trace) mg/dL Urine Glucose (UA) Negative (Negative) mg/dL Urine Ketones Negative (Negative) mg/dL Urine Blood Negative (Negative) Urine Nitrite Negative (Negative) Ur Leukocyte Esterase Negative (Negative) COVID-19 ([facility]) (Negative) COVID-19 Clin Com <Prakash Guevara MD - Last Filed: 11/07/22 00:29> Independent Interpretation I performed an independent interpretation of an: EKG <Prakash Guevara MD - Last Filed: 11/07/22 00:29> Interpretation: Normal sinus rhythm heart rate 64 beats permin normal interval normal axis no acute ST T wave changes no acute ischemia <Prakash Guevara MD - Last Filed: 11/07/22 00:29> Discharge Plan Discharge Clinical Impression: Chest pain <LEIGHANN Davis - Last Filed: 11/06/22 19:22> Patient Disposition: Home, Self-Care <LEIGHANN Davis - Last Filed: 11/06/22 19:22> Instructions: Chest Pain (ED) <LEIGHANN Davis - Last Filed: 11/06/22 19:22> Additional Instructions: Etiology of her right-sided chest pain is not very clear your cardiac enzymes and CTA chest negative Take pain medication as prescribed Follow-up with your PCP for further management Report to the ER if worsening of the chest pain/shortness of breath <LEIGHANN Davis - Last Filed: 11/06/22 19:22> Prescriptions: New tramadol 50 mg tablet 50 mg PO Q6H PRN (Reason: pain) Qty: 20 0RF No Action amlodipine 5 mg tablet 5 mg PO DAILY furosemide 20 mg tablet 20 mg PO DAILY losartan 100 mg tablet 100 mg PO DAILY atenolol 25 mg tablet 75 mg PO DAILY esomeprazole magnesium [Nexium] 40 mg capsule,delayed release(DR/EC) 40 mg PO DAILY Qty: 90 3RF Creon 24,000-76,000 -120,000 unit capsule,delayed release(DR/EC) 1 cap PO QID Qty: 120 2RF Rx Instructions: administer with meals and/or snacks <LEIGHANN Davis - Last Filed: 11/06/22 19:22>
[2022-11-06 19:28] LABS: MANUAL DIFF FLAG NO
[2022-11-06 19:32] LABS: Basophils Absolute Auto 0.1 X10*3/uL (0.0-0.2); Basophils Percent Auto 1.1 % (0-2); Eosinophils Absolute Auto 0.3 X10*3/uL (0.0-0.4); Eosinophils Percent Auto 2.7 % (0-4); Hematocrit 39.9 % (42.0-52.0); Hemoglobin 14.1 g/dl (14.0-18.0); Imm Gran Abs Auto 0.05 X10*3/uL (0.00-0.03); Imm Gran Pct Auto 0.5 % (0.0-0.4); Lymphocytes Absolute Auto 3.1 X10*3/uL (1.2-4.9); Lymphocytes Percent Auto 33.3 % (20-40); Mean Corpuscular HGB Conc 35.3 g/dl (31.0-36.0); Mean Corpuscular Hemoglobin 33.3 pg (27.0-33.0); Mean Corpuscular Volume 94.3 fL (80.0-98.0); Mean Platelet Volume 8.4 fL (9.4-12.4); Monocytes Percent Auto 11.3 % (2-11); Neutrophils Absolute Auto 4.7 x10*3/uL (2.0-8.3); Neutrophils Percent Auto 51.1 % (45-73); Platelet Count 246 X10*3/uL (160-400); Red Blood Count 4.23 X10*6/uL (4.60-5.80); Red Cell Distribution Width 12.2 % (11.0-16.0); White Blood Count 9.2 X10*3/uL (4.8-10.8)
[2022-11-06 19:40] LABS: D Dimer High Sensitivity 165 NG/ML
[2022-11-06 19:45] LABS: COVID-19 Test Negative (Negative); IDNOW Serial# 55D5AD1C
[2022-11-06 19:49] LABS: B Type Natriuretic Peptide 113 pg/mL (<100)
[2022-11-06 19:50] LABS: Alanine Aminotransferase 25 U/L (0-40); Albumin Level 4.1 g/dL (3.5-5.0); Alkaline Phosphatase 88 U/L (39-117); Anion Gap 18 (12-20); Aspartate Amino Transferase 21 U/L (5-37); Bilirubin Total 0.6 mg/dL (0.0-1.0); Blood Urea Nitrogen 9 mg/dL (9-16); Calcium 8.7 mg/dL (8.4-10.2); Carbon Dioxide 23 mmol/L (22-29); Chloride 99 mmol/L (96-108); Creatinine Clr Calc Pharmacy 71.2; Estimated Glomerular Filt Rate > 60; Glucose Random 121 mg/dL (60-115); Magnesium 1.9 mg/dL (1.6-2.6); Potassium 3.7 mmol/L (3.3-5.1); Sodium 136 mmol/L (135-145); Total Protein 6.5 g/dL (6.5-8.0)
[2022-11-06 19:52] LABS: Troponin-I High Sensitivity < 3.5 ng/L (<3.5-35.0)
[2022-11-06 21:25] VITALS: BP 139/80; PULSE 71; RESP 22; TEMP 36.8; O2SAT 98
--- NOTE | 2022-11-06 21:37 | PC.NURSE ---
Pt aox4 resting at the bedside reporting chest pain that began earlier in the day. Pain 9/10. Pain with inspiration. NSR on monitor with hr 70. VSS. IV line started with 22G on L FA. Trop lab collected and sent. Unable to provide urine sample at this time. Pending physician wolfgang. Pt aware of plan of care.
[2022-11-06 22:05] LABS: Troponin-I High Sensitivity < 3.5 ng/L (<3.5-35.0)
[2022-11-06] MEDS: iohexoL 350 MG/ML 100 ML INFUS..BTL IV (22:27)
--- NOTE | 2022-11-06 23:36 | ECG_ITS ---
Test Reason : CHEST PAIN Blood Pressure : / mmHG Vent. Rate : 075 BPM Atrial Rate : 075 BPM P-R Int : 166 ms QRS Dur : 090 ms QT Int : 380 ms P-R-T Axes : 050 025 052 degrees QTc Int : 424 ms Normal sinus rhythm Nonspecific ST abnormality Abnormal ECG When compared with ECG of 06-NOV-2022 19:15, No significant change was found Referred By: Prakash Guevara Electronically Signed By:Young Bauman
[2022-11-06 23:40] LABS: Appearance Urine Clear; Color Urine Yellow; Glucose Urine UA Negative (Negative); Leukocyte Esterase Urine Negative (Negative); Nitrite Urine Negative (Negative); PH 5.5 (5.0-9.0); Specific Gravity - Urine >= 1.030 (1.005-1.025); Urine Blood Negative (Negative); Urine Ketones Negative (Negative); Urine Protein Negative (Neg-Trace)
[2022-11-06] MEDS: ondansetron HCL 4 MG/2 ML VIAL IVPUSH (23:49)
[2022-11-06] MEDS: Morphine Sulfate 4 MG/ML CARTRIDGE IVPUSH (23:49)
--- NOTE | 2022-11-06 23:55 | PC.NURSE ---
this rn assumed care of pt at 2300. pt reports to this rn 05/16 chest pain continues at this time. dr horta made aware at this time. repeat ekg ordered and obtained. pt medicated according to mar
[2022-11-07 00:30] VITALS: BP 126/74; PULSE 75; RESP 20; TEMP 36.4; O2SAT 95
--- NOTE | 2022-11-07 00:53 | PC.NURSE ---
pt at bedside at time of discharge. bilateral iv removed at discharge. pt ambulatory at this time. pt reports decreased pain at this time. pt provided with discharge packet. vss. skin pwd. pt and verbalize understanding of discharge plan
== END 2022-11-07 00:59 | disposition home or self-care (01) ==
PROVIDERS: Physician Assistant; Emergency Provider Internal Medicine; PCP Internal Medicine
DX: R07.89 Other chest pain (principal); R06.02 Shortness of breath; Z20.822 Contact with and (suspected) exposure to COVID-19; Z20.828 Contact with and (suspected) exposure to other viral communicable diseases; Z79.899 Other long term (current) drug therapy
CPT/HCPCS: 36415; 71045; 71275; 80053; 81003; 83735; 83880; 84484; 85025; 85379; 87635; 93005; 96374; 96375; 99284; 99285; J2270; J2405; Q9967

== ENCOUNTER 2023-03-14 02:17 | Inpatient (IN) | payer MEDICARE, SELFPAY ==
[2023-03-14] VITALS (10 sets, daily range): BP systolic 116–162; BP diastolic 66–86; PULSE 65–87; RESP 14–22; TEMP 36–38; O2SAT 89–96; BMI 27.4; BMI 29.7
--- NOTE | ~2023-03-14 | XR_ITS ---
EXAMINATION: XR CHEST CLINICAL INFORMATION: Fever. Dyspnea. COMPARISON: None available. TECHNIQUE: Frontal view of the chest was obtained. FINDINGS: The cardiomediastinal silhouette is stable. There is a right pjs-az-xelhm lung field infiltrate. The left lung is clear. There are no significant pleural effusions. XR/XR chest 1V IMPRESSION: Right hoy-bc-rmnmj lung field infiltrate most consistent with pneumonia.
--- NOTE | 2023-03-14 02:40 | ECG_ITS ---
Test Reason : SOB Blood Pressure : / mmHG Vent. Rate : 083 BPM Atrial Rate : 083 BPM P-R Int : 172 ms QRS Dur : 090 ms QT Int : 356 ms P-R-T Axes : 036 022 049 degrees QTc Int : 418 ms Normal sinus rhythm Nonspecific ST abnormality Abnormal ECG When compared with ECG of 06-NOV-2022 23:41, Non-specific change in ST segment in Inferior leads Non-specific change in ST segment in Lateral leads Referred By: Jane Bernard Electronically Signed By:Young Bauman
[2023-03-14 03:04] LABS: Basophils Absolute Auto 0.1 X10*3/uL (0.0-0.2); Basophils Percent Auto 0.7 % (0-2); Eosinophils Absolute Auto 0.1 X10*3/uL (0.0-0.4); Hematocrit 43.5 % (42.0-52.0); Hemoglobin 15.1 g/dl (14.0-18.0); Imm Gran Abs Auto 0.04 X10*3/uL (0.00-0.03); Imm Gran Pct Auto 0.3 % (0.0-0.4); Lymphocytes Absolute Auto 1.2 X10*3/uL (1.2-4.9); MANUAL DIFF FLAG SCAN; Mean Corpuscular HGB Conc 34.7 g/dl (31.0-36.0); Mean Corpuscular Hemoglobin 32.3 pg (27.0-33.0); Mean Corpuscular Volume 93.1 fL (80.0-98.0); Mean Platelet Volume 9.1 fL (9.4-12.4); Monocytes Absolute Auto 0.4 X10*3/uL (0.1-1.2); Monocytes Percent Auto 3.1 % (2-11); Neutrophils Percent Auto 84.9 % (45-73); PLT CLUMP 1; Red Blood Count 4.67 X10*6/uL (4.60-5.80); Red Cell Distribution Width 12.1 % (11.0-16.0); SCAN SMEAR FLAG 1
[2023-03-14] MEDS: cefTRIAXone sodium 2 GM in 0.9 % Sodium Chloride 50 ML IV (03:08)
[2023-03-14] MEDS: methylPREDNISolone Sod Succ 125 MG/2 ML VIAL 60 MG IVPUSH (03:08)
[2023-03-14] MEDS: 0.9 % Sodium Chloride 1,000 ML 999 ML IVCONT (03:08)
--- NOTE | 2023-03-14 03:10 | ED.SOB ---
HPI - SOB/Dyspnea General Chief Complaint: Dyspnea Stated Complaint: Sob/Fever/Chills Time Seen by Provider: 03/14/23 02:32 Source: patient and family Mode of arrival: ambulatory Limitations: no limitations History of Present Illness HPI Narrative: 67 yo male with hx of COPD, pneumonia, lupus on plaquenil, HTN, here with c/o waking up feeling short of breath sudden fever of 102 chills and overall feeling poor hx of same in past with sudden pneumonia - no travel, sick contacts or exposures. does not use home O2 MD elicited complaint: shortness of breath Pertinent past history: COPD and pneumonia Onset (ago): hour(s) (1) Timing: constant Severity: moderate Exacerbating factors: coughing Relieving factors: nothing Known history of: COPD and recurrent pneumonia Associated symptoms: fever and cough Treatment prior to arrival: none Related Data Home Medications Medication Instructions Recorded Confirmed amlodipine 5 mg tablet 5 mg PO DAILY 08/26/21 10/11/22 atenolol 25 mg tablet 75 mg PO DAILY 08/26/21 10/11/22 furosemide 20 mg tablet 20 mg PO DAILY 08/26/21 10/11/22 losartan 100 mg tablet 100 mg PO DAILY 08/26/21 10/11/22 hydroxychloroquine 200 mg tablet 200 mg PO BID 03/14/23 03/14/23 Previous Rx's Medication Instructions Recorded esomeprazole magnesium 40 mg 40 mg PO DAILY #90 caps 10/24/22 capsule,delayed release (Nexium) Allergies Allergy/AdvReac Type Severity Reaction Status Date / Time ibuprofen Allergy Mild tongue Verified 10/24/22 08:06 swelling Review of Systems Review of Systems: Constitutional : pos Fever, pos Chills ENT/Mouth : No sore throat, No Rhinorrhea, No Swallowing Difficulty Eyes: No Eye Pain, No Swelling, No Redness Cardiovascular : No Chest Pain, positive SOB, No Orthopnea, no Edema Respiratory : No Cough, No Sputum, No Wheezing, positive dyspnea Gastrointestinal : No Nausea, No Vomiting, No Diarrhea, No abdominal Pain, No Hematochezia, No Melena Genitourinary : No Dysuria, No Urinary Frequency, No Hematuria Musculoskeletal : No joint pain, No Myalgias Skin : No Skin Lesions, No rash Neuro : No Weakness, No Numbness, No Dizziness, No Headache Psych : No Anxiety/Panic, No Depression All other systems reviewed and are negative PMFSH Past Medical History Attestation statement: The following information was validated with the patient. Source: old records reviewed Medical History GERD (gastroesophageal reflux disease) HTN (hypertension) Lupus Pancreatic insufficiency Tubular adenoma Tubulovillous adenoma Surgical History History of esophagogastroduodenoscopy (EGD) Hx of colonoscopy Hx of hernia repair Family History Family History Father HTN (hypertension) Mother Cancer Sister Cancer Social History Social History Alcohol intake: current Alcohol intake frequency: 3 or more drinks per day Alcohol type: beer Patient Tobacco Use Status: Former Tobacco user Quit Date: 2015 Advance Directives: No Advance Directives Information Provided: Yes Physical Exam Vital Signs: Vital Signs: Last Vital Signs Temp 99.8 F 03/14/23 02:24 Pulse 80 03/14/23 03:58 Resp 18 03/14/23 03:58 BP 139/77 03/14/23 02:24 Pulse Ox 89 L 03/14/23 02:24 O2 Del Method Room Air 03/14/23 02:24 BMI result Body Mass Index 27.4 Appearance: Alert. Oriented X3. No acute distress. Eyes: Pupils equal, round and reactive to light. ENT: Pharynx normal. Neck: Normal inspection. Neck supple. CVS: Normal heart rate and rhythm. Pulses normal. Respiratory: No respiratory distress. Breath sounds R sided very diminished Abdomen: Soft and nontender. Skin: Skin warm and dry. Normal skin color. Normal skin turgor. Extremities: No lower extremity edema. Neuro: Oriented X 3. No motor deficit. No sensory deficit. Medications Administered Generic Name Dose Route Start Last Admin Trade Name Freq PRN Reason Stop Dose Admin Azithromycin 500 mg/ Sodium 250 mls @ 125 mls/hr 03/14/23 03:42 03/14/23 04:06 Chloride IV 03/14/23 05:41 125 mls/hr ONCE ONE Administration Discontinued Medications Generic Name Dose Route Start Last Admin Trade Name Freq PRN Reason Stop Dose Admin Albuterol/Ipratropium 3 ml 03/14/23 02:40 03/14/23 03:58 Albuterol/Iprat 2.5/0.5mg 3 Ml Ampul.Neb INHALE 03/14/23 02:41 3 ml ONCE ONE Administration Sodium Chloride 1,000 mls @ 999 mls/hr 03/14/23 02:45 03/14/23 04:07 Ns IVCONT 03/14/23 03:45 Infused .Q1H1M CHRISTOPHER Infusion Ceftriaxone Sodium 2 gm/ 50 mls @ 100 mls/hr 03/14/23 02:40 03/14/23 03:38 Sodium Chloride IV 03/14/23 03:09 Infused ONCE ONE Infusion Methylprednisolone Sodium Succinate 60 mg 03/14/23 02:40 03/14/23 03:08 Methylprednisolone Sod Succ 125 Mg/2 Ml Vial IVPUSH 03/14/23 02:41 60 mg ONCE ONE Administration Medical Decision Making Medical Decision Making MDM Narrative: 67 yo male with hx of COPD, pneumonia, lupus on plaquenil, HTN, here with c/o waking with dyspnea cough and fever chills with no risk factors - hx of same in the past with pneumonia. at this time will obtain labs, lactic acid cultures, empiric fluids, steroids and douneb as well as ceftriaxone. Planned admit given hypoxia 88% on RA on arrival. Differential Diagnosis Differential Diagnoses: The differential diagnosis associated with the presentation includes pneumonia, COVID, viral syndrome Admission/Observation Consideration of admission/observation: Escalation of care including admission/observation considered admit for hypoxia and further management of illness Consult Healthcare Provider Management of the patient was discussed with: Hospitalist agrees to admission Lab Data [facility] Lab Attestation statement: I reviewed the patient's lab results. 03/14/23 02:48 03/14/23 02:48 Labs: Lab Results 03/14/23 03/14/23 03/14/23 Range/Units 02:48 02:48 02:48 WBC 11.8 H (4.8-10.8) X10*3/uL RBC 4.67 (4.60-5.80) X10*6/uL Hgb 15.1 (14.0-18.0) g/dl Hct 43.5 (42.0-52.0) % MCV 93.1 (80.0-98.0) fL MCH 32.3 (27.0-33.0) pg MCHC 34.7 (31.0-36.0) g/dl RDW 12.1 (11.0-16.0) % Plt Count TNP MPV 9.1 L (9.4-12.4) fL Immature Gran % (Auto) 0.3 (0.0-0.4) % Neut % (Auto) 84.9 H (45-73) % Lymph % (Auto) 10.0 L (20-40) % [place] % (Auto) 3.1 (2-11) % Eos % (Auto) 1.0 (0-4) % Baso % (Auto) 0.7 (0-2) % Lymph # (Auto) 1.2 (1.2-4.9) X10*3/uL [place] # (Auto) 0.4 (0.1-1.2) X10*3/uL Eos # (Auto) 0.1 (0.0-0.4) X10*3/uL Baso # (Auto) 0.1 (0.0-0.2) X10*3/uL Abs Immat Gran (auto) 0.04 H (0.00-0.03) X10*3/uL Absolute Neuts (auto) 10.0 H (2.0-8.3) x10*3/uL Absolute Nucleated RBC 0.000 (0.0-0.012) X10*3/uL Nucleated RBC % (auto) 0.0 (0.0-0.2) /100WBC Smear Tech's Comments VERIFIED PT 12.7 (11.1-13.3) SEC INR 1.0 (0.9-1.1) Sodium 138 (135-145) mmol/L Potassium 4.1 (3.3-5.1) mmol/L Chloride 102 (96-108) mmol/L Carbon Dioxide 25 (22-29) mmol/L Anion Gap 15 (12-20) BUN 12 (9-16) mg/dL Creatinine 0.98 (0.5-1.4) mg/dL Estim Creat Clear Calc 69.7 Estimated GFR > 60 Random Glucose 101 (60-115) mg/dL Lactic Acid (0.5-2.0) mmol/L Calcium 9.7 D (8.4-10.2) mg/dL Magnesium 1.8 (1.6-2.6) mg/dL Total Bilirubin 0.9 (0.0-1.0) mg/dL Direct Bilirubin 0.3 (0.0-0.5) mg/dL AST 28 (5-37) U/L ALT 33 (0-40) U/L Alkaline Phosphatase 79 (39-117) U/L Troponin I High Sens (<3.5-35.0) ng/L Total Protein 7.1 (6.5-8.0) g/dL Albumin 4.2 (3.5-5.0) g/dL Lipase 25 (8-78) U/L Procalcitonin 0.04 ng/mL Influenza Type A (PCR) (Negative) Influenza Type B (PCR) (Negative) RSV RNA Qual (PCR) (Negative) SARS-CoV-2 RNA (RT-PCR) (Negative) 03/14/23 03/14/23 03/14/23 Range/Units 02:48 02:48 02:48 WBC (4.8-10.8) X10*3/uL RBC (4.60-5.80) X10*6/uL Hgb (14.0-18.0) g/dl Hct (42.0-52.0) % MCV (80.0-98.0) fL MCH (27.0-33.0) pg MCHC (31.0-36.0) g/dl RDW (11.0-16.0) % Plt Count MPV (9.4-12.4) fL Immature Gran % (Auto) (0.0-0.4) % Neut % (Auto) (45-73) % Lymph % (Auto) (20-40) % [place] % (Auto) (2-11) % Eos % (Auto) (0-4) % Baso % (Auto) (0-2) % Lymph # (Auto) (1.2-4.9) X10*3/uL [place] # (Auto) (0.1-1.2) X10*3/uL Eos # (Auto) (0.0-0.4) X10*3/uL Baso # (Auto) (0.0-0.2) X10*3/uL Abs Immat Gran (auto) (0.00-0.03) X10*3/uL Absolute Neuts (auto) (2.0-8.3) x10*3/uL Absolute Nucleated RBC (0.0-0.012) X10*3/uL Nucleated RBC % (auto) (0.0-0.2) /100WBC Smear Tech's Comments PT (11.1-13.3) SEC INR (0.9-1.1) Sodium (135-145) mmol/L Potassium (3.3-5.1) mmol/L Chloride (96-108) mmol/L Carbon Dioxide (22-29) mmol/L Anion Gap (12-20) BUN (9-16) mg/dL Creatinine (0.5-1.4) mg/dL Estim Creat Clear Calc Estimated GFR Random Glucose (60-115) mg/dL Lactic Acid 2.1 H* (0.5-2.0) mmol/L Calcium (8.4-10.2) mg/dL Magnesium (1.6-2.6) mg/dL Total Bilirubin (0.0-1.0) mg/dL Direct Bilirubin (0.0-0.5) mg/dL AST (5-37) U/L ALT (0-40) U/L Alkaline Phosphatase (39-117) U/L Troponin I High Sens < 2.7 (<3.5-35.0) ng/L Total Protein (6.5-8.0) g/dL Albumin (3.5-5.0) g/dL Lipase (8-78) U/L Procalcitonin ng/mL Influenza Type A (PCR) NEGATIVE (Negative) Influenza Type B (PCR) NEGATIVE (Negative) RSV RNA Qual (PCR) NEGATIVE (Negative) SARS-CoV-2 RNA (RT-PCR) NEGATIVE (Negative) Independent Interpretation I performed an independent interpretation of an: EKG and Plain X-Ray (R pneumonia) Interpretation: Rate: 83 Rhythm: NSR [place]: normal Normal P waves. Normal ADITYA. Normal QRS complex. ST T wave : nonspecific no JC qTC: normal prior studies: no acute ischemia The study has been interpreted contemporaneously by me. . Radiology Impression Discussion of test interpretation with radiology: I have reviewed the radiologist's reading. Independent Historian Clinical information obtained from an independent historian. History obtained from or confirmed by: Spouse External Record Review External record reviewed: Inpatient record Discharge Plan Discharge Clinical Impression: Hypoxia, Acidosis, lactic Community acquired pneumonia Qualifiers: Laterality: right Lung location: lower lobe of lung Qualified Code(s): J18.9 - Pneumonia, unspecified organism Patient Disposition: Admitted As Inpatient
[2023-03-14 03:12] LABS: White Blood Count 11.8 X10*3/uL (4.8-10.8)
[2023-03-14 03:25] LABS: Alanine Aminotransferase 33 U/L (0-40); Albumin Level 4.2 g/dL (3.5-5.0); Alkaline Phosphatase 79 U/L (39-117); Anion Gap 15 (12-20); Aspartate Amino Transferase 28 U/L (5-37); Bilirubin Direct 0.3 mg/dL (0.0-0.5); Bilirubin Total 0.9 mg/dL (0.0-1.0); Blood Urea Nitrogen 12 mg/dL (9-16); Calcium 9.7 mg/dL (8.4-10.2); Carbon Dioxide 25 mmol/L (22-29); Chloride 102 mmol/L (96-108); Creatinine Clr Calc Pharmacy 69.7; Estimated Glomerular Filt Rate > 60; Glucose Random 101 mg/dL (60-115); Lipase 25 U/L (8-78); Magnesium 1.8 mg/dL (1.6-2.6); Potassium 4.1 mmol/L (3.3-5.1); Sodium 138 mmol/L (135-145); Total Protein 7.1 g/dL (6.5-8.0); Troponin-I High Sensitivity < 2.7 ng/L (<3.5-35.0)
[2023-03-14 03:26] LABS: Lactic Acid 2.1 mmol/L (0.5-2.0)
--- NOTE | 2023-03-14 03:27 | PC.NURSE ---
Lab called with critical lactic acid level 2.1. Dr. Bernard informed.
[2023-03-14 03:31] LABS: SLIDE REVIEW VERIFIED
[2023-03-14 03:41] LABS: Influenza A PCR NEGATIVE (Negative); Influenza B PCR NEGATIVE (Negative); Resp Syncy Virus RNA Qual PCR NEGATIVE (Negative); SARS COV2 PCR INHOUSE NEGATIVE (Negative)
[2023-03-14 03:50] LABS: Procalcitonin 0.04 ng/mL
[2023-03-14] MEDS: Albuterol/Iprat 2.5/0.5MG 3 ML AMPUL.NEB INHALE (03:58)
[2023-03-14 03:59] LABS: Prothrombin Time 12.7 SEC (11.1-13.3)
[2023-03-14] MEDS: Azithromycin 500 MG in 0.9 % Sodium Chloride 250 ML 125 MG IV ×2 (04:06→21:20)
[2023-03-14 04:58] LABS: Reflex Lactate? Lactic Acid Added
[2023-03-14] MEDS: Lactated Ringers 1,000 ML 100 ML IVCONT ×2 (05:10→14:38)
[2023-03-14] MEDS: Acetaminophen 325 MG TABLET 650 MG PO ×2 (05:26→21:52)
[2023-03-14 05:31] LABS: MANUAL DIFF FLAG NO
[2023-03-14 05:33] LABS: Basophils Absolute Auto 0.1 X10*3/uL (0.0-0.2); Basophils Percent Auto 0.5 % (0-2); Eosinophils Percent Auto 0.2 % (0-4); Hematocrit 39.2 % (42.0-52.0); Hemoglobin 13.7 g/dl (14.0-18.0); Imm Gran Abs Auto 0.04 X10*3/uL (0.00-0.03); Imm Gran Pct Auto 0.3 % (0.0-0.4); Lymphocytes Absolute Auto 0.7 X10*3/uL (1.2-4.9); Lymphocytes Percent Auto 5.6 % (20-40); Mean Corpuscular HGB Conc 34.9 g/dl (31.0-36.0); Mean Corpuscular Hemoglobin 32.6 pg (27.0-33.0); Mean Corpuscular Volume 93.3 fL (80.0-98.0); Mean Platelet Volume 8.6 fL (9.4-12.4); Monocytes Absolute Auto 0.5 X10*3/uL (0.1-1.2); Monocytes Percent Auto 4.3 % (2-11); Neutrophils Absolute Auto 10.5 x10*3/uL (2.0-8.3); Neutrophils Percent Auto 89.1 % (45-73); Platelet Count 210 X10*3/uL (160-400); Red Cell Distribution Width 12.1 % (11.0-16.0); White Blood Count 11.8 X10*3/uL (4.8-10.8)
[2023-03-14 05:46] LABS: Anion Gap 12 (12-20); Blood Urea Nitrogen 12 mg/dL (9-16); Calcium 8.9 mg/dL (8.4-10.2); Carbon Dioxide 24 mmol/L (22-29); Chloride 106 mmol/L (96-108); Creatinine Clr Calc Pharmacy 80.4; Estimated Glomerular Filt Rate > 60; Glucose Random 81 mg/dL (60-115); Potassium 4.2 mmol/L (3.3-5.1); Sodium 138 mmol/L (135-145)
[2023-03-14 05:56] LABS: ~Lactic Acid-LAB USE ONLY 0.9 mmol/L (0.5-2.0)
--- NOTE | 2023-03-14 06:06 | P.HPHOSP_ITS ---
History of Present Illness Date of Service: 03/14/23 Chief Complaint: Fever and chills 67-year-old male past medical history of hypertension, GERD, lupus, pancreatic insufficiency, COPD comes into the hospital with complaints of fever and chills. Will come about 01:00. Reports some shortness of breath with no cough, no sputum production. No abdominal pain nausea or vomiting, no diarrhea constipation, no urinary symptoms and no lower extremity edema. No orthopnea or PND. Also reports neck stiffness for the past 6 months. As well as positional vertigo that started about few days ago. Denies any injury or trauma to the neck. No numbness tingling or weakness in the arms. The vertigo occurs when he is turning his head as well as when he gets up from a sleeping position. No vertigo on standing On arrival to the ED patient was found to be hemodynamically stable but satting 80% on room air Labs are significant for WBC count of 11.8, lactic acid of 2.1, chest x-ray showed pneumonia Patient started on antibiotics will be admitted for further management Review of Systems Review of Systems: Yes all other systems are reviewed and are negative [facility] Medical History GERD (gastroesophageal reflux disease) HTN (hypertension) Lupus Pancreatic insufficiency Tubular adenoma Tubulovillous adenoma Family History Father HTN (hypertension) Mother Cancer Sister Cancer Surgical History History of esophagogastroduodenoscopy (EGD) Hx of colonoscopy Hx of hernia repair Social History Alcohol intake: current Alcohol intake frequency: 3 or more drinks per day Alcohol type: beer Patient Tobacco Use Status: Former Tobacco user Quit Date: 2015 Advance Directives: No Advance Directives Information Provided: Yes Meds Allergies Allergy/AdvReac Type Severity Reaction Status Date / Time ibuprofen Allergy Mild tongue Verified 10/24/22 08:06 swelling Active Medications: Current Medications Acetaminophen (Acetaminophen 325 Mg Tablet) 650 mg PO Q6H PRN PRN Reason: Pain, Mild (Pain Scale 1-3) Last Admin: 03/14/23 05:26 Dose: 650 mg Docusate Sodium (Docusate Sodium 100 Mg Capsule) 100 mg PO DAILY PRN PRN Reason: Constipation Enoxaparin Sodium (Enoxaparin Sodium 40 Mg/0.4 Ml Syringe) 40 mg SUBCUT Q24H [facility] Ceftriaxone Sodium 1 gm/ (Sodium Chloride) 50 mls @ 100 mls/hr IV Q24H [facility] Azithromycin 500 mg/ Sodium (Chloride) 250 mls @ 125 mls/hr IV Q24H [facility] Lactated Ringer's (Lr) 1,000 mls @ 100 mls/hr IVCONT .Q10H [facility] Last Admin: 03/14/23 05:10 Dose: 100 mls/hr Ondansetron HCl (Ondansetron Hcl 4 Mg/2 Ml Vial) 4 mg IVPUSH Q8H PRN PRN Reason: Nausea and Vomiting Sodium Chloride (0.9 % Sodium Chloride Flush 3 Ml Syringe) 3 ml IVFLUSH QSHIFT [facility] Home Medications Medication Instructions Recorded Confirmed Last Taken Type amlodipine 5 mg tablet 5 mg PO DAILY 08/26/21 10/11/22 12/21/21 History atenolol 25 mg tablet 75 mg PO DAILY 08/26/21 10/11/22 12/21/21 History furosemide 20 mg tablet 20 mg PO DAILY 08/26/21 10/11/22 Unknown History losartan 100 mg tablet 100 mg PO DAILY 08/26/21 10/11/22 Unknown History hydroxychloroquine 200 mg tablet 200 mg PO BID 03/14/23 03/14/23 Unknown History Physical Exam Vital Signs and Narrative: Vital Signs: Last Vital Signs Temp 100.4 F 03/14/23 04:39 Pulse 87 03/14/23 04:39 Resp 14 03/14/23 04:39 BP 116/66 03/14/23 04:39 Pulse Ox 95 03/14/23 04:39 O2 Del Method Nasal Cannula 03/14/23 04:39 O2 Flow Rate 2 03/14/23 04:39 BMI result Body Mass Index 27.4 Const: General: cooperative and no acute distress Orientat ion/consciousness: patient oriented x3 Eyes: General: appearance normal, both eyes and all related structures Pupils: Equal, round and reactive pupils present Resp: Other: Crackles in the right mid to bibasilar region Effort & Inspection: normal respiratory effort Cardio: Rate: regular rate Rhythm: regular rhythm GI: Palpation (GI): Soft to palpation Auscultation: normal bowel sounds Skin: General skin exam: no rashes or lesions noted Neuro: General: patient oriented x3 Cranial nerves: Yes Equal, round and reactive pupils present Cognition (Neuro): normal cognition Extrem: General: Yes normal to inspection and Yes no pedal edema Results Labs 03/14/23 04:53 03/14/23 04:53 Labs: Laboratory Results - last 24 hr 03/14/23 03/14/23 03/14/23 02:48 02:48 02:48 MCV 93.1 MCH 32.3 MCHC 34.7 RDW 12.1 Plt Count TNP MPV 9.1 L Immature Gran % (Auto) 0.3 Neut % (Auto) 84.9 H Lymph % (Auto) 10.0 L [place] % (Auto) 3.1 Eos % (Auto) 1.0 Baso % (Auto) 0.7 Lymph # (Auto) 1.2 [place] # (Auto) 0.4 Eos # (Auto) 0.1 Baso # (Auto) 0.1 Abs Immat Gran (auto) 0.04 H Absolute Neuts (auto) 10.0 H Absolute Nucleated RBC 0.000 Nucleated RBC % (auto) 0.0 Smear Tech's Comments VERIFIED PT 12.7 INR 1.0 Anion Gap 15 Estim Creat Clear Calc 69.7 Estimated GFR > 60 Random Glucose 101 Lactic Acid Lactic Acid F/U @ 2Hr Calcium 9.7 D Magnesium 1.8 Total Bilirubin 0.9 Direct Bilirubin 0.3 AST 28 ALT 33 Alkaline Phosphatase 79 Total Protein 7.1 Albumin 4.2 Lipase 25 Procalcitonin 0.04 Influenza Type A (PCR) Influenza Type B (PCR) RSV RNA Qual (PCR) SARS-CoV-2 RNA (RT-PCR) 03/14/23 03/14/23 03/14/23 02:48 02:48 04:53 MCV 93.3 MCH 32.6 MCHC 34.9 RDW 12.1 Plt Count 210 MPV 8.6 L Immature Gran % (Auto) 0.3 Neut % (Auto) 89.1 H Lymph % (Auto) 5.6 L [place] % (Auto) 4.3 Eos % (Auto) 0.2 Baso % (Auto) 0.5 Lymph # (Auto) 0.7 L [place] # (Auto) 0.5 Eos # (Auto) 0.0 Baso # (Auto) 0.1 Abs Immat Gran (auto) 0.04 H Absolute Neuts (auto) 10.5 H Absolute Nucleated RBC 0.000 Nucleated RBC % (auto) 0.0 Smear Tech's Comments PT INR Anion Gap Estim Creat Clear Calc Estimated GFR Random Glucose Lactic Acid 2.1 H* Lactic Acid F/U @ 2Hr Calcium Magnesium Total Bilirubin Direct Bilirubin AST ALT Alkaline Phosphatase Total Protein Albumin Lipase Procalcitonin Influenza Type A (PCR) NEGATIVE Influenza Type B (PCR) NEGATIVE RSV RNA Qual (PCR) NEGATIVE SARS-CoV-2 RNA (RT-PCR) NEGATIVE 03/14/23 03/14/23 04:53 05:42 MCV MCH MCHC RDW Plt Count MPV Immature Gran % (Auto) Neut % (Auto) Lymph % (Auto) [place] % (Auto) Eos % (Auto) Baso % (Auto) Lymph # (Auto) [place] # (Auto) Eos # (Auto) Baso # (Auto) Abs Immat Gran (auto) Absolute Neuts (auto) Absolute Nucleated RBC Nucleated RBC % (auto) Smear Tech's Comments PT INR Anion Gap 12 Estim Creat Clear Calc 80.4 Estimated GFR > 60 Random Glucose 81 Lactic Acid Lactic Acid F/U @ 2Hr 0.9 Calcium 8.9 D Magnesium Total Bilirubin Direct Bilirubin AST ALT Alkaline Phosphatase Total Protein Albumin Lipase Procalcitonin Influenza Type A (PCR) Influenza Type B (PCR) RSV RNA Qual (PCR) SARS-CoV-2 RNA (RT-PCR) Imaging Radiologist's Impressions: Impressions Chest X-Ray 03/14/23 03:05 IMPRESSION: Right uin-bi-orpnh lung field infiltrate most consistent with pneumonia. Assessment and Plan (1) Community acquired pneumonia: Qualifiers: Laterality: right Lung location: lower lobe of lung Qualified Code(s): J18.9 - Pneumonia, unspecified organism Status: Acute (2) Acute respiratory failure with hypoxia: Status: Acute (3) Acidosis, lactic: Status: Acute (4) Benign paroxysmal positional vertigo: Status: Acute Plan 67-year-old male with past medical history of hypertension, COPD comes into the hospital with complaints of fever chills cough found to have pneumonia # acute community-acquired pneumonia - has an infiltrate on chest x-ray - leukocytosis, hypoxic - will treat with IV antibiotics - follow cultures - COVID influenza and RSV negative # acute hypoxic respiratory failure - secondary to above - no wheezing - will treat with antibiotics - follow cultures # vertigo - likely secondary to neck stiffness versus BPPV - will consult physical therapy # lactic acidosis - secondary to above - IV fluids - trend # hypertension - stable - continue antihypertensives DVT prophylaxis: Lovenox Given patient's need for further antibiotics as well as hypoxia patient require minimum 2 nights inpatient hospital stay for further management and monitoring Time Spent With Patient Time: Total time managing care of this patient today ____ minutes. Quality Stroke Does the patient have a stroke diagnosis?: No VTE Prior VTE?: No VTE Risk Level:: Medical - moderate - high VTE Device Contraindication: Treatment Not Indicated VTE Drug Contraindication: N/A - Med Ordered
[2023-03-14 08:30] LABS: Appearance Urine Clear; Color Urine Yellow; Glucose Urine UA Negative (Negative); Leukocyte Esterase Urine Negative (Negative); Nitrite Urine Negative (Negative); PH 5.5 (5.0-9.0); Urine Blood Negative (Negative); Urine Ketones Trace mg/dL (Negative); Urine Protein Negative (Neg-Trace)
--- NOTE | 2023-03-14 08:38 | PHA.MEDREC ---
Pharmacy Consult ? Medication Reconciliation Pharmacy has completed the medication reconciliation. Spoke to patient and patient's spouse OTP to confirm meds.
[2023-03-14] MEDS: Hydroxychloroquine Sulfate 200 MG TABLET PO ×2 (09:25→20:31)
--- NOTE | 2023-03-14 09:31 | PC.NURSE ---
pt a&ox3, vss, nsr on the monitor technician. pt verbalizing 0/10 pain. CIWA = 0 - will notify provider. crackles noted in lower lobes bilaterally. pt showing no SOB or WOB at the moment. LR still running at 100. pt able to speak in full, clear sentences w/o showing signs of distress. medication administered per provider order. call acosta placed within reach. will continue to monitor.
--- NOTE | 2023-03-14 09:40 | PM.EVENT ---
Event Note Date of Service: 03/14/23 Event Note: Personally seen and examined, admitted this morning with SOB and found to have RML pneumonia, doing better, no fever. A/P per H and P from this morning, anticipate dischrge by tomorrow Time Spent With Patient Time: Total time managing care of this patient today ____ minutes.
--- NOTE | 2023-03-14 12:38 | PC.NURSE ---
pt a&ox3, vss, nsr on the telemetry monitor. pt asking/concerned about why he was not given morning blood pressure medication. pt states that he take losartan in the AM and atenolol and amlodipine PM. all three medications were not listed in pt's medication list. will notify pharmacy.
--- NOTE | 2023-03-14 13:07 | PC.NURSE ---
tigertexted admitting provider about pt's concern of not receiving morning BP medication.
--- NOTE | 2023-03-14 13:49 | MHC.CM.PN ---
pt lives with his they had no servxies he has a ride home when dcd dc plan home no servcies
--- NOTE | 2023-03-14 14:44 | PC.NURSE ---
IVF administered per provider order.
[2023-03-14] MEDS: Losartan Potassium 50 MG TABLET 100 MG PO (15:26)
[2023-03-14] MEDS: Loratadine 10 MG TABLET PO (15:28)
[2023-03-14] MEDS: Omeprazole 20 MG CAPSULE.DR PO (15:28)
[2023-03-14] MEDS: Cholecalciferol (Vitamin D3) 25 MCG TABLET 125 MCG PO (15:28)
--- NOTE | 2023-03-14 15:30 | PC.NURSE ---
medication administered per provider order.
[2023-03-14] MEDS: 0.9 % Sodium Chloride Flush 3 ML SYRINGE IVFLUSH (16:48)
--- NOTE | 2023-03-14 19:47 | PC.NURSE ---
report given to RN on admitting unit.
[2023-03-14] MEDS: cefTRIAXone sodium 1 GM in 0.9 % Sodium Chloride 50 ML IV (20:29)
[2023-03-14] MEDS: amLODIPine Besylate 5 MG TABLET PO (20:32)
[2023-03-15] MEDS: Lactated Ringers 1,000 ML 100 ML IVCONT (01:22)
[2023-03-15 05:26] VITALS: BMI 28.3
[2023-03-15 05:29] VITALS: BMI 28.2
[2023-03-15 07:29] VITALS: BP 147/76; PULSE 60; RESP 18; TEMP 36.8; O2SAT 97
[2023-03-15 08:00] VITALS: RESP 18
[2023-03-15] MEDS: Loratadine 10 MG TABLET PO (08:00)
[2023-03-15] MEDS: Enoxaparin Sodium 40 MG/0.4 ML SYRINGE SUBCUT (08:00)
[2023-03-15] MEDS: Cholecalciferol (Vitamin D3) 25 MCG TABLET 125 MCG PO (08:00)
[2023-03-15] MEDS: Furosemide 20 MG TABLET PO (08:00)
[2023-03-15] MEDS: Hydroxychloroquine Sulfate 200 MG TABLET PO (08:00)
[2023-03-15] MEDS: Losartan Potassium 50 MG TABLET 100 MG PO (08:00)
[2023-03-15 08:58] VITALS: O2SAT 94
--- NOTE | 2023-03-15 09:13 | PM.DS ---
DS: Providers Provider Date of Service: 03/15/23 Date of admission: 03/14/23 04:38 Primary care physician: Ted Pearl MD DS: Diagnosis Discharge Diagnosis (1) Community acquired pneumonia: Status: Acute (2) Acute respiratory failure with hypoxia: Status: Acute (3) Acidosis, lactic: Status: Acute (4) Benign paroxysmal positional vertigo: Status: Acute DS: Summary Hospital Course Hospital Course: Chief Complaint: Fever and chills 67-year-old male past medical history of hypertension, GERD, lupus, pancreatic insufficiency, COPD comes into the hospital with complaints of fever and chills. Will come about 01:00. Reports some shortness of breath with no cough, no sputum production. No abdominal pain nausea or vomiting, no diarrhea constipation, no urinary symptoms and no lower extremity edema. No orthopnea or PND. Also reports neck stiffness for the past 6 months. As well as positional vertigo that started about few days ago. Denies any injury or trauma to the neck. No numbness tingling or weakness in the arms. The vertigo occurs when he is turning his head as well as when he gets up from a sleeping position. No vertigo on standing On arrival to the ED patient was found to be hemodynamically stable but satting 80% on room air Labs are significant for WBC count of 11.8, lactic acid of 2.1, chest x-ray showed pneumonia Patient started on antibiotics will be admitted for further management Hospital course: Patient presented with fever and chills and hypoxia and found to have community-acquired pneumonia in the right middle lobe his oxygen saturation was 80% on presentation, lactic acid was 2.1 he was initiated on IV antibiotics for pneumonia further studies with the COVID and RSV have been negative. He has make rapid improvement with hypoxia having resolved fever resolved he is breathing comfortably he has been on ceftriaxone and azithromycin and these will be switched to Ceftin 500 mg twice daily for 7 days. He is to follow up with primary care physician upon discharge. # acute hypoxic respiratory failure Due to pneumonia above. This has resolved he is no longer needing oxygen, oxygen saturation is 94% on room air. # vertigo - likely secondary to neck stiffness versus BPPV, Resolved PT saw him # lactic acidosis-- resolved # hypertension- stable - continue antihypertensives Time Spent with Patient Time attestation: Total time managing care of this patient today ____ minutes. Discharge coordination time: Greater than 30 minutes Quality: Safe Use of Opioids Does Pt have an Active Cancer Diagnosis on the Problem List?: No Quality: Stroke Does the patient have a stroke diagnosis?: No Physical Exam Vital Signs: Vital Signs: Last Vital Signs Temp 98.2 F 03/15/23 07:29 Pulse 60 03/15/23 07:29 Resp 18 03/15/23 07:29 BP 147/76 H 03/15/23 07:29 Pulse Ox 94 03/15/23 08:58 O2 Del Method Room Air 03/15/23 07:29 O2 Flow Rate 2 03/14/23 12:35 BMI result Body Mass Index 28.2 DS: Data Data Completed and Pending Labs on day of discharge: Preliminary micro results at discharge 03/14/23 02:48 Blood Culture - Preliminary Blood - Venous No growth after 24 hours. 03/14/23 02:52 Blood Culture - Preliminary Blood - Venous No growth after 24 hours. Discharge Plan Discharge Anticipated Discharge Date/Time: 03/15/23 09:10 Patient Disposition: Home, Self-Care Discharge Diagnosis: community acquired number Referrals: Ted Pearl MD [Primary Care Provider] - 1 Week Discharge Medications: New cefuroxime axetil 500 mg tablet 500 mg PO BID 7 Days Qty: 14 0RF Continued hydroxychloroquine 200 mg tablet 200 mg PO BID esomeprazole magnesium [Nexium] 40 mg capsule,delayed release(DR/EC) 40 mg PO DAILY@1600 cetirizine 10 mg Tablet 10 mg PO DAILY acetaminophen 500 mg Tablet 1,000 mg PO Q6H PRN (Reason: Pain) cholecalciferol (vitamin D3) [Vitamin D3] 125 mcg (5,000 unit) Tablet 125 mcg PO DAILY amlodipine 5 mg tablet 5 mg PO BEDTIME furosemide 20 mg tablet 20 mg PO DAILY losartan 100 mg tablet 100 mg PO DAILY atenolol 25 mg tablet 75 mg PO DAILY@1300 Discharge Orders: Discharge Order (Routine); Ordered 03/15/23 Ordered By: Nash Khan Diet: Advance to usual diet Activity on Discharge: As tolerated Stand Alone Forms: Patient Portal Discharge page Care Plan Goals: recovery from pneumonia Health Concerns: community-acquired pneumonia, hypoxia that is not resolved Plan of Treatment: take Ceftin as directed, follow-up with your primary care doctor within a week. As her doctor to refer to see a lung doctor given recurrent pneumonia over the years. Assessment: As above
--- NOTE | 2023-03-15 09:35 | MHC.CM.PN ---
pt dcd home no services
== END 2023-03-15 10:25 | disposition home or self-care (01) | DRG 193 ==
LOC: HO.ED 04:10 → HO.EDOVER 04:46 → HO.S3 19:22
PROVIDERS: Admitting Provider Internal Medicine; Emergency Provider Emergency Medicine; PCP Internal Medicine; Visit Provider Internal Medicine
DX: J18.9 Pneumonia, unspecified organism (principal); J96.01 Acute respiratory failure with hypoxia; J44.0 Chronic obstructive pulmonary disease with (acute) lower respiratory infection; E87.20 Acidosis, unspecified; H81.10 Benign paroxysmal vertigo, unspecified ear; M32.9 Systemic lupus erythematosus, unspecified; K21.9 Gastro-esophageal reflux disease without esophagitis; I10 Essential (primary) hypertension; Z20.822 Contact with and (suspected) exposure to COVID-19; Z87.01 Personal history of pneumonia (recurrent); Z87.891 Personal history of nicotine dependence; Z79.899 Other long term (current) drug therapy
CPT/HCPCS: 0241U; 36415; 71045; 80048; 80076; 81003; 83605; 83690; 83735; 84145; 84484; 85025; 85610; 87040; 93005; 94640; 95992; 97116; 97161; 99285; J0456; J0696; J1650; J2930

== ENCOUNTER → 2023-03-14 02:40 | Outpatient (BNV) | payer MEDICARE, SELFPAY | PROVIDERS: Admitting Provider Internal Medicine; Emergency Provider Emergency Medicine; PCP Internal Medicine; Visit Provider Internal Medicine Cardiovascular Disease | DX: R06.02 Shortness of breath (principal); R94.31 Abnormal electrocardiogram [ECG] [EKG] | CPT/HCPCS: 93010 ==

== ENCOUNTER → 2023-03-14 04:38 | Outpatient (BNV) | payer MEDICARE, SELFPAY | PROVIDERS: Admitting Provider Internal Medicine; Emergency Provider Emergency Medicine; PCP Internal Medicine; Visit Provider Internal Medicine | DX: J18.9 Pneumonia, unspecified organism (principal); J96.01 Acute respiratory failure with hypoxia; E87.20 Acidosis, unspecified; H81.10 Benign paroxysmal vertigo, unspecified ear | CPT/HCPCS: 99223; 99239; 99499 ==

== ENCOUNTER 2023-03-21 10:19 | Outpatient (AMB) | payer MEDICARE, SELFPAY ==
--- NOTE | 2023-03-21 10:30 | MHC.OFFVIS ---
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 Molding Process Technician: Injection Molding Process Technician offered & declined Accompanied by: Self / Same As Patient Allergies ibuprofen Allergy (Mild, Verified 03/21/23 10:35) tongue swelling Medication List - Last Reconciled 03/21/23 by Jana Evans LPN acetaminophen 1,000 mg PO Q6H PRN amlodipine 5 mg PO BEDTIME atenolol 75 mg PO DAILY@1300 cefuroxime axetil 500 mg PO BID 7 days cetirizine 10 mg PO DAILY cholecalciferol (vitamin D3) (Vitamin D3) 125 mcg PO DAILY esomeprazole magnesium (Nexium) 40 mg PO DAILY@1600 furosemide 20 mg PO DAILY hydroxychloroquine 200 mg PO BID losartan 100 mg PO DAILY multivitamin 1 tab PO DAILY HPI Pneumonia HPI Details Hardy is a pleasant 67-year-old male, former smoker with 30+ pack-year history, quit 2016, with underlying COPD and lupus on hydroxychloroquine for the past 1.5 years, under the care of rheumatology at [facility]. He was referred by his PCP for pulmonary evaluation due to recurrent pneumonia and recent hospital admission with acute respiratory failure. He was admitted to [facility] for two nights due to hypoxia secondary to pneumonia, treated with IV antibiotics and discharged on 03/15/23 with Ceftin. He required supplemental oxygen during his hospital stay but did not require any upon discharge. He reports dyspnea with moderate exertion, which is his baseline otherwise has had complete resolution of symptoms. Patient reports having pneumonia 4-5 times over the last few years. He denies any history of immune deficiencies. He denies any family history of lung conditions. He denies any occupational exposures. [facility] Medical History (Updated 03/23/23 @ 12:20 by Meredith Aguilar NP) Benign paroxysmal positional vertigo GERD (gastroesophageal reflux disease) HTN (hypertension) Lupus Pancreatic insufficiency Tubular adenoma Tubulovillous adenoma Surgical History History of esophagogastroduodenoscopy (EGD) Hx of colonoscopy Hx of hernia repair Family History Father HTN (hypertension) Mother Cancer Sister Cancer Social History (Updated 03/21/23 @ 10:38 by Jana Evans LPN) Household Members: Spouse Housing: House Do you presently have visiting nurse or other home services: No Alcohol intake: current Alcohol intake frequency: 3 or more drinks per day Alcohol type: beer Patient Tobacco Use Status: Former Tobacco user Quit Date: 2015 service: No Review of Systems Const Denies chills, Denies excessive sweating, Denies fever(s), Denies headache(s) and Denies night sweats Eyes Denies irritation and Denies itchy eyes ENT Reports Normal hearing present, Denies headache(s), Denies nasal congestion, Denies nasal discharge, Denies post nasal drip and Denies sore throat Card Denies chest pain, Denies chest pain at rest, Denies chest pain with activity, Denies claudication, Denies leg edema, Denies dyspnea, Denies orthopnea and Denies paroxysmal nocturnal dyspnea Resp Denies chest congestion, Denies cough, Denies excessive phlegm production, Denies pain on inspiration, Denies pain with cough, Denies dyspnea, Denies stridor and Denies wheezing Musc Denies myalgias Neuro Reports Normal hearing present and Denies headache(s) Endo Denies excessive sweating Edin/Lymph Denies lymphadenopathy Aller/Immun Denies itchy eyes, Denies seasonal rhinorrhea and Denies wheezing Physical Exam Vital Signs: Last Vital Signs Pulse 78 03/21/23 10:32 BP 110/62 03/21/23 10:32 Pulse Ox 96 03/21/23 10:32 Oxygen Delivery Method Room Air 03/21/23 10:32 BMI result Body Mass Index 28.0 Const General: cooperative, healthy appearing, comfortable, no acute distress, well developed and alert Orientation/consciousness: patient oriented x3 Limitations: no limitations HEENT Head: Yes normal to inspection, Yes normocephalic and Yes atraumatic Ears: hearing grossly normal bilaterally and external ears normal Eyes General: appearance normal, both eyes and all related structures Eyelids: Yes eyelids normal Sclerae: sclerae normal EOM: EOMs intact bilaterally Neck Neck: Yes normal visual inspection and Yes no lymphadenopathy Lymphatic: no lymphadenopathy noted Chest Chest palpation & inspection: normal inspection of the chest Resp Effort & Inspection: normal respiratory effort, able to speak in complete sentences, no audible wheezes, no cough, no stridor, not tachypneic, no tripod positioning and no use of accessory muscles Auscultation: clear to auscultation bilaterally Cardio Jugular venous distension: no JVD Rate: regular rate Rhythm: regular rhythm Skin Other: warm, dry General skin exam: no rashes or lesions noted Neuro General: patient oriented x3 Cranial nerves: Yes Normal hearing present Cognition (Neuro): normal cognition Gait exam (Neuro): Normal gait present Extrem General: Yes normal to inspection, Yes capillary refill normal, Yes no clubbing, cyanosis or edema and Yes no pedal edema Psych Appearance: grossly normal and well kempt Speech and movement: Normal speech and movement present and Clear speech present Affect: normal affect Attitude: cooperative Thought process: Normal thought process present Thought content: Normal thought content present Insight: Good insight present (Psych) Judgement: Good judgement present (Psych) Results Reviewed Results Reviewed: [address] [address] XRay Report Signed Patient: Hardy Jackson MR#: [id number] : 1955 Acct:[id number] Age/Sex: 67 / M ADM Date: 03/14/23 Loc: .ED Attending Dr: Ordering Physician: Jane Bernard DO Date of Service: 03/14/23 Procedure(s): XR chest 1V Accession Number(s): [id number] cc: Jane Bernard DO~ EXAMINATION: XR CHEST CLINICAL INFORMATION: Fever. Dyspnea. COMPARISON: None available. TECHNIQUE: Frontal view of the chest was obtained. FINDINGS: The cardiomediastinal silhouette is stable. There is a right rmy-id-xapuk lung field infiltrate. The left lung is clear. There are no significant pleural effusions. XR/XR chest 1V IMPRESSION: Right rbi-gz-zfihs lung field infiltrate most consistent with pneumonia. Assessment & Plan Assessment & Plan (1) COPD (chronic obstructive pulmonary disease): Code(s): J44.9 - Chronic obstructive pulmonary disease, unspecified (2) Lupus: Code(s): M32.9 - Systemic lupus erythematosus, unspecified Plan Hardy likely with COPD, given smoking history, unclear severity, will send for PFT to evaluate and HRCT in 8 weeks. Will also send for lab work to assess for immunodeficiencies. At this time, patient feels his respiratory symptoms are well controlled and not interested in any medications. Will follow up after to review results. All questions were answered and patient is in agreement of plan. Orders: Orders Immunoglobulin G Subclasses 03/21/23 J18.9 - Pneumonia, unspecified organism Immunoglobulins,IgG IgA IgM 03/21/23 J18.9 - Pneumonia, unspecified organism PFT pulmonary function test Today J44.9 - Chronic obstructive pulmonary disease, unspecified CT chest wo IV con 05/04/23 J44.9 - Chronic obstructive pulmonary disease, unspecified, M32.9 - Systemic lupus erythematosus, unspecified Medications: Discontinued esomeprazole magnesium 40 mg PO DAILY 90 caps 3RF K21.9 - Gastro-esophageal reflux disease without esophagitis Coding Level of Care Code New Pt Level 4 (96431) Diagnoses COPD (chronic obstructive pulmonary disease) J44.9 Lupus M32.9
[2023-03-21 10:32] VITALS: BP 110/62; PULSE 78; O2SAT 96; BMI 28.0
== END 2023-03-21 11:11 | disposition home or self-care (01) ==
PROVIDERS: PCP Internal Medicine; Visit Provider Nurse Practitioner Family
DX: J44.9 Chronic obstructive pulmonary disease, unspecified (principal); M32.9 Systemic lupus erythematosus, unspecified
CPT/HCPCS: 99204

== ENCOUNTER → 2023-03-21 10:19 | Outpatient (BNVA) | payer MEDICARE, SELFPAY | PROVIDERS: PCP Internal Medicine; Visit Provider Nurse Practitioner Family | DX: J44.9 Chronic obstructive pulmonary disease, unspecified (principal); M32.9 Systemic lupus erythematosus, unspecified | CPT/HCPCS: 99202 ==

== ENCOUNTER 2023-05-03 09:00 | Outpatient (RCR) | payer MEDICARE, SELFPAY ==
[2023-03-22 10:51] VITALS: BP 160/85; PULSE 70; O2SAT 95
== END 2023-06-07 09:10 | disposition home or self-care (01) ==
LOC: HO.PT 09:00
PROVIDERS: PCP Internal Medicine; Visit Provider Internal Medicine
DX: R42 Dizziness and giddiness (principal); M54.2 Cervicalgia
CPT/HCPCS: 97012; 97110; 97140; 97162; 97530

== ENCOUNTER 2023-05-08 08:04 | Outpatient (REF) | payer MEDICARE, SELFPAY ==
--- NOTE | ~2023-05-08 | CT_ITS ---
EXAMINATION: CT CHEST WITHOUT CONTRAST CLINICAL INFORMATION: COPD. COMPARISON: CTA chest dated 11/06/2022. TECHNIQUE: Multidetector volumetric CT imaging of the chest was done. Axial MIP volume rendering provided. Sagittal and coronal reformatted images were obtained. This CT examination was performed using dose optimization techniques as appropriate, variously including the following: *Automated exposure control *Adjustment of mA and/or kV according to patient size (this includes techniques or standardized protocols for targeted exams where dose is matched to indication/reason for exam; i.e. extremities or head) *Use of iterative reconstruction technique DLP: 167 mGy-cm FINDINGS: RIVET SPINNER: The lungs are symmetrically well-expanded and grossly clear. LUNGS: There is minimal biapical paraseptal emphysematous change. There is very mild biapical pleural and parenchymal scarring. No nodule, mass, infiltrate or groundglass opacity is seen. There is no generalized increase in peripheral interlobular septal markings. There is mild generalized small airway thickening. No bronchiectasis is noted. The central airways appear patent. There is a saber-sheath configuration of the trachea. MEDIASTINUM: The thyroid is unremarkable. There is no thoracic aortic aneurysm. There are mild atherosclerotic calcifications of the great vessel origins and thoracic aorta. No mediastinal or hilar lymphadenopathy is seen. CORONARY ARTERY CALCIFICATION: Minimal. There are calcifications of the aortic annulus. PLEURA: There is no pleural effusion. No pleural mass or thickening. AXILLA: No lymphadenopathy. UPPER ABDOMEN: Unremarkable. OSSEOUS STRUCTURES: There is multi-level lower cervical, thoracic and upper lumbar degenerative disc disease and spondylosis, an appearance suggesting possible DISH (diffuse idiopathic skeletal hyperostosis). No acute or aggressive osseous finding is noted. CT/CT chest wo IV con IMPRESSION: 1. No pulmonary nodule, mass, infiltrate or groundglass opacity is seen. 2. There is mild generalized small airway thickening, and there is a saber-sheath appearance of the trachea, which can be associated with obstructive small airways disease. 3. There is minimal paraseptal emphysematous change. 4. There is no thoracic lymphadenopathy or pleural effusion. 5. There are degenerative changes of the spine, with an appearance suggesting possible DISH. No acute or aggressive osseous finding is noted. Fleischner guidelines were followed.
== END 2023-05-08 08:05 | disposition home or self-care (01) ==
LOC: HO.CT 08:04
PROVIDERS: PCP Internal Medicine; Visit Provider Nurse Practitioner Family
DX: J44.9 Chronic obstructive pulmonary disease, unspecified (principal); M32.9 Systemic lupus erythematosus, unspecified
CPT/HCPCS: 71250

== ENCOUNTER 2023-06-21 09:35 | Outpatient (AMB) | payer MEDICARE, SELFPAY ==
[2023-06-21 09:41] VITALS: BP 128/80; PULSE 58; O2SAT 98; BMI 28.4
--- NOTE | 2023-06-21 09:41 | A.OFFVIS_ITS ---
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 Operator Required: No Supervisor Pleating: Supervisor Pleating offered & declined Accompanied by: Self / Same As Patient Allergies ibuprofen Allergy (Mild, Verified 06/21/23 09:44) tongue swelling Medication List - Last Reconciled 06/21/23 by Jana Evans LPN acetaminophen 1,000 mg PO Q6H PRN amlodipine 5 mg PO BEDTIME atenolol 75 mg PO DAILY@1300 cholecalciferol (vitamin D3) (Vitamin D3) 125 mcg PO DAILY esomeprazole magnesium (Nexium) 40 mg PO DAILY@1600 hydroxychloroquine 200 mg PO BID losartan 100 mg PO DAILY multivitamin 1 tab PO DAILY HPI Pneumonia HPI Details Hardy is a pleasant 68 year old male, former smoker with 30+ pack- year history, quit 2015, with underlying COPD and lupus on hydroxychloroquine for the past 1.5 years, under the care of rheumatology at [facility]. He was referred by his PCP for pulmonary evaluation due to recurrent pneumonia and recent hospital admission with acute respiratory failure in March. At the last visit, he reported complete reolustion of symptoms and was back to baseline, dyspnea with moderate exertion. Today he presents to review chest CT and lab work results. He was sent for PFT but patient declined. [facility] Medical History (Updated 06/21/23 @ 10:17 by Meredith Aguilar NP) Lupus HTN (hypertension) COPD (chronic obstructive pulmonary disease) Personal history of nicotine dependence Benign paroxysmal positional vertigo Pancreatic insufficiency GERD (gastroesophageal reflux disease) Tubular adenoma Tubulovillous adenoma Surgical History (Updated 06/15/23 @ 11:36 by Kathryn Perez PA-C) History of vasectomy History of left inguinal hernia repair History of colonoscopy History of esophagogastroduodenoscopy (EGD) Family History Father HTN (hypertension) Mother Cancer Sister Cancer Social History (Updated 06/21/23 @ 09:47 by Jana Evans LPN) Household Members: Spouse Housing: House Do you presently have visiting nurse or other home services: No Alcohol intake: current Alcohol intake frequency: 3 or more drinks per day Alcohol type: beer Patient Tobacco Use Status: Former Tobacco user Quit Date: 2015 Smoked in Last 30 Days: No service: No Review of Systems Const Denies chills, Denies excessive sweating, Denies fever(s), Denies headache(s) and Denies night sweats Eyes Denies irritation and Denies itchy eyes ENT Reports Normal hearing present, Denies headache(s), Denies nasal congestion, Denies nasal discharge, Denies post nasal drip and Denies sore throat Card Denies chest pain, Denies chest pain at rest, Denies chest pain with activity, Denies claudication, Denies leg edema, Denies dyspnea, Denies orthopnea and Denies paroxysmal nocturnal dyspnea Resp Denies chest congestion, Denies cough, Denies excessive phlegm production, Denies pain on inspiration, Denies pain with cough, Denies dyspnea, Denies stridor and Denies wheezing Musc Denies myalgias Neuro Reports Normal hearing present and Denies headache(s) Endo Denies excessive sweating Edin/Lymph Denies lymphadenopathy Aller/Immun Denies itchy eyes, Denies seasonal rhinorrhea and Denies wheezing Physical Exam Vital Signs: Last Vital Signs Pulse 58 06/21/23 09:41 BP 128/80 06/21/23 09:41 Pulse Ox 98 06/21/23 09:41 Oxygen Delivery Method Room Air 06/21/23 09:41 BMI result Body Mass Index 28.4 Const General: cooperative, healthy appearing, comfortable, no acute distress, well developed and alert Orientation/consciousness: patient oriented x3 Limitations: no limitations HEENT Head: Yes normal to inspection, Yes normocephalic and Yes atraumatic Ears: hearing grossly normal bilaterally and external ears normal Eyes General: appearance normal, both eyes and all related structures Eyelids: Yes eyelids normal Sclerae: sclerae normal EOM: EOMs intact bilaterally Neck Neck: Yes normal visual inspection and Yes no lymphadenopathy Lymphatic: no lymphadenopathy noted Chest Chest palpation & inspection: normal inspection of the chest Resp Effort & Inspection: normal respiratory effort, able to speak in complete sentences, no audible wheezes, no cough, no stridor, not tachypneic, no tripod positioning and no use of accessory muscles Auscultation: clear to auscultation bilaterally Cardio Jugular venous distension: no JVD Rate: regular rate Rhythm: regular rhythm Skin Other: warm, dry General skin exam: no rashes or lesions noted Neuro General: patient oriented x3 Cranial nerves: Yes Normal hearing present Cognition (Neuro): normal cognition Gait exam (Neuro): Normal gait present Extrem General: Yes normal to inspection, Yes capillary refill normal, Yes no clubbing, cyanosis or edema and Yes no pedal edema Psych Appearance: grossly normal and well kempt Speech and movement: Normal speech and movement present and Clear speech present Affect: normal affect Attitude: cooperative Thought process: Normal thought process present Thought content: Normal thought content present Insight: Good insight present (Psych) Judgement: Good judgement present (Psych) Results Reviewed Results Reviewed: [address] [address] [address] Scan Report Signed Patient: Hardy Jackson MR#: [id number] : 1955 Acct:[id number] Age/Sex: 67 / M ADM Date: 05/08/23 Loc: HO.CT Attending Dr: Meredith Aguilar NP Ordering Physician: Meredith Aguilar NP Date of Service: 05/08/23 Procedure(s): CT chest wo IV con Accession Number(s): [id number] cc: Ted Pearl MD; Meredith Aguilar NP~ EXAMINATION: CT CHEST WITHOUT CONTRAST CLINICAL INFORMATION: COPD. COMPARISON: CTA chest dated 11/06/2022. TECHNIQUE: Multidetector volumetric CT imaging of the chest was done. Axial MIP volume rendering provided. Sagittal and coronal reformatted images were obtained. This CT examination was performed using dose optimization techniques as appropriate, variously including the following: *Automated exposure control *Adjustment of mA and/or kV according to patient size (this includes techniques or standardized protocols for targeted exams where dose is matched to indication/reason for exam; i.e. extremities or head) *Use of iterative reconstruction technique DLP: 167 mGy-cm FINDINGS: VP PROJECT: The lungs are symmetrically well-expanded and grossly clear. LUNGS: There is minimal biapical paraseptal emphysematous change. There is very mild biapical pleural and parenchymal scarring. No nodule, mass, infiltrate or groundglass opacity is seen. There is no generalized increase in peripheral interlobular septal markings. There is mild generalized small airway thickening. No bronchiectasis is noted. The central airways appear patent. There is a saber-sheath configuration of the trachea. MEDIASTINUM: The thyroid is unremarkable. There is no thoracic aortic aneurysm. There are mild atherosclerotic calcifications of the great vessel origins and thoracic aorta. No mediastinal or hilar lymphadenopathy is seen. CORONARY ARTERY CALCIFICATION: Minimal. There are calcifications of the aortic annulus. PLEURA: There is no pleural effusion. No pleural mass or thickening. AXILLA: No lymphadenopathy. UPPER ABDOMEN: Unremarkable. OSSEOUS STRUCTURES: There is multi-level lower cervical, thoracic and upper lumbar degenerative disc disease and spondylosis, an appearance suggesting possible DISH (diffuse idiopathic skeletal hyperostosis). No acute or aggressive osseous finding is noted. CT/CT chest wo IV con IMPRESSION: 1. No pulmonary nodule, mass, infiltrate or groundglass opacity is seen. 2. There is mild generalized small airway thickening, and there is a saber-sheath appearance of the trachea, which can be associated with obstructive small airways disease. 3. There is minimal paraseptal emphysematous change. 4. There is no thoracic lymphadenopathy or pleural effusion. 5. There are degenerative changes of the spine, with an appearance suggesting possible DISH. No acute or aggressive osseous finding is noted. Fleischner guidelines were followed. Assessment & Plan Assessment & Plan (1) COPD (chronic obstructive pulmonary disease): Code(s): J44.9 - Chronic obstructive pulmonary disease, unspecified (2) Emphysema lung: Code(s): J43.9 - Emphysema, unspecified (3) Lupus: Code(s): M32.9 - Systemic lupus erythematosus, unspecified Plan Hardy reports symptoms are back to baseline and he is not interested in any medications at this time. Reviewed chest CT which revealed resolution of pneumonia. Since patient feels his respiratory symptoms are well controlled, will follow up PRN. All questions were answered and patient is in agreement of plan. Coding Level of Care Code Est Pt Level 3 (40637) Diagnoses COPD (chronic obstructive pulmonary disease) J44.9 Emphysema lung J43.9 Lupus M32.9
== END 2023-06-21 10:17 | disposition home or self-care (01) ==
PROVIDERS: PCP Internal Medicine; Visit Provider Nurse Practitioner Family
DX: J44.9 Chronic obstructive pulmonary disease, unspecified (principal); J43.9 Emphysema, unspecified; M32.9 Systemic lupus erythematosus, unspecified
CPT/HCPCS: 99213

== ENCOUNTER → 2023-06-21 09:35 | Outpatient (BNVA) | payer MEDICARE, SELFPAY | PROVIDERS: PCP Internal Medicine; Visit Provider Nurse Practitioner Family | DX: J44.9 Chronic obstructive pulmonary disease, unspecified (principal); J43.9 Emphysema, unspecified; M32.9 Systemic lupus erythematosus, unspecified | CPT/HCPCS: 99212 ==

== ENCOUNTER 2023-06-26 07:44 | Outpatient (AMB) | payer MEDICARE, SELFPAY ==
--- NOTE | 2023-06-26 07:46 | A.OFFVIS_ITS ---
Intake Vital Signs 06/26/23 07:50 Height 5 ft 8 in Weight 185 lb 3.013 oz BMI 28.2 BP 136/66 Blood Pressure Location Rt brachial Position Sitting Respiration 18 Pulse 55 Intake Visit Reasons: 8 month fu Intake Note: Patient here for 8 month follow up, abdominal bloating. CC: Patient still experiencing abdominal bloating. Patient states Creon was causing cramping. Patient experiencing intermittent constipation. Allergies ibuprofen Allergy (Mild, Verified 06/26/23 07:51) tongue swelling Medication List - Last Reconciled 06/26/23 by Elen Amaya, RN amlodipine 5 mg PO BEDTIME atenolol 75 mg PO DAILY@1300 cholecalciferol (vitamin D3) (Vitamin D3) 125 mcg PO DAILY esomeprazole magnesium (Nexium) 40 mg PO DAILY@1600 hydroxychloroquine 200 mg PO BID losartan 100 mg PO DAILY multivitamin 1 tab PO DAILY HPI 8 month fu HPI Details LAST VISIT: GERD (gastroesophageal reflux disease) Continue Nexium. He discussed with patient avoiding dietary triggers and late night snacking. Staying upright for minimum 3 hours after meals discussed with patient Abdominal bloating Continue Creon. Will increase the dose. Patient is tolerating will well. Patient denies any abdominal pain or bloating. Exocrine pancreatic insufficiency Continue Creon therapy Tubular adenoma Two polyps in transverse colon found. Tubular adenoma. Patient had suboptimal prep, left side of colon not completely cleared out. Patient will need to repeat colonoscopy in 1 year. I will see him in 8 months, sooner on as needed basis. Patient is agreeable to this plan and verbalizes understanding of instructions. He was given the opportunity to ask questions and all questions answered ? Thank you for allowing me to participate in his care Plan Medications New dmajot-uxzlryhj-mesflyt 24,000-76,000 -120,000 unit (Creon) administer with meals and/or snacks 1 cap PO QID 120 caps 2RF K58.9 Refilled esomeprazole magnesium (Nexium) 40 mg PO DAILY 90 caps 3RF K21. TODAY'S VISIT: Patient is here today for follow-up. Patient reports that since the last time I had seen him he has been feeling well, however lately he has been having postprandial abdominal bloating. Patient states that he gets bloated very easy, reports epigastric burning even when he was taking Creon. Patient stopped Creon symptoms continued. Patient also reports that he is more constipated now. Was able to move his bowels better before, however now patient states that he does not feel like he empties his bowels even when he has a bowel movement. Patient reports that he is drinking fluids. Has not changed his diet. Patient denies dyspepsia, dysphagia or odynophagia. Reports that esomeprazole works for him. Patient states that the capsules worked better than tablets. Patient denies any nausea or vomiting. Denies any melena, hematochezia, unintentional weight loss or ribbon like stools. [facility] Medical History Lupus HTN (hypertension) COPD (chronic obstructive pulmonary disease) Personal history of nicotine dependence Benign paroxysmal positional vertigo Pancreatic insufficiency GERD (gastroesophageal reflux disease) Tubular adenoma Tubulovillous adenoma Surgical History History of vasectomy History of left inguinal hernia repair History of colonoscopy History of esophagogastroduodenoscopy (EGD) Family History Father HTN (hypertension) Mother Cancer Sister Cancer Social History Household Members: Spouse Housing: House Do you presently have visiting nurse or other home services: No Alcohol intake: current Alcohol intake frequency: 3 or more drinks per day Alcohol type: beer Patient Tobacco Use Status: Former Tobacco user Quit Date: 2015 service: No Review of Systems Const Denies weight gain and Denies weight loss ENT Reports no additional complaints, Denies dysphagia and Denies odynophagia Card Reports no additional complaints Resp Reports no additional complaints GI Reports abdominal pain (occasional cramping), Denies belching, Denies melena, Reports bloating, Reports constipation, Denies dysphagia, Denies excessive flatus, Denies dyspepsia, Denies heartburn, Denies diarrhea, Denies loose stools, Denies nausea, Denies odynophagia and Denies vomiting Reports no additional complaints Musc Reports no additional complaints Neuro Reports no additional complaints Psych Reports no additional complaints Endo Reports no additional complaints Physical Exam Vital Signs: Last Vital Signs Pulse 55 06/26/23 07:50 Resp 18 06/26/23 07:50 BP 136/66 06/26/23 07:50 BMI result Body Mass Index 28.2 Const General: healthy appearing, no acute distress and well developed Nutritional Appearance: well nourished Orientation/consciousness: patient oriented x3 HEENT Head: Yes normal to inspection, Yes normocephalic and Yes atraumatic Face and sinus: Yes normal facial exam Mouth: Normal oral and palatal mucosa present Throat: Yes posterior oropharynx normal, Yes tonsils normal and Yes uvula midline Eyes General: appearance normal, both eyes and all related structures Neck Neck: Yes normal visual inspection, Yes full ROM and Yes trachea midline Thyroid: Thyroid normal Resp Effort & Inspection: normal respiratory effort, able to speak in complete sentences, no tracheal deviation and symmetric chest movement Auscultation: clear to auscultation bilaterally Cardio Rate: regular rate Heart sounds: S1 normal heart sound present and S2 normal heart sound present GI Inspection: Yes normal to inspection and No distended Palpation (GI): Soft to palpation, not firm, nontender and No hepatosplenomegaly present Auscultation: normal bowel sounds General: Yes no CVA tenderness Back/Spine/Pelvis Back: no CVA tenderness Skin General skin exam: elasticity normal, turgor normal and dry skin Neuro General: patient oriented x3 Psych Appearance: grossly normal Mental Status: mental status grossly normal Assessment & Plan Assessment & Plan (1) Tubular adenoma: Comment: (TVA/TA on 2021, TA on 2022 scope) Code(s): D36.9 - Benign neoplasm, unspecified site Plan: Patient is due to go for colorectal screening after October of 2023, will make appointment next visit (2) GERD (gastroesophageal reflux disease): Code(s): K21.9 - Gastro-esophageal reflux disease without esophagitis Qualifiers: Esophagitis presence: esophagitis presence not specified Qualified Code(s): K21.9 - Gastro-esophageal reflux disease without esophagitis Plan: Continue Nexium. Discussed with patient avoiding dietary triggers and late and snacking. Staying upright for minimum 3 hours after meals discussed with patient. (3) Abdominal bloating: Code(s): R14.0 - Abdominal distension (gaseous) Plan: Continue low FODMAP diet. Avoid dietary trigger. (4) Exocrine pancreatic insufficiency: Code(s): K86.81 - Exocrine pancreatic insufficiency Plan: Patient will start taking Creon with meals. Will increase the dose. Unlikely patient symptoms were related to Creon as his dose was very small. (5) Constipation: Code(s): K59.00 - Constipation, unspecified Qualifiers: Constipation type: slow transit constipation Qualified Code(s): K59.01 - Slow transit constipation Plan: Patient will start taking Dulcolax tablets at bedtime. Patient was encouraged to increase fluid intake and activity to promote better bowel motility. I will see patient in 4 months so we can discuss going for colonoscopy. Patient is agreeable to this plan and verbalizes understanding of instructions. He was given the opportunity to ask questions and all questions answered. Thank you for allowing me to participate in his care Medications: New bisacodyl (Dulcolax (bisacodyl)) 10 mg (2 x 5 mg) PO BEDTIME 180 tabs 4RF esomeprazole magnesium (Nexium) 40 mg PO DAILY@1600 90 caps 2RF oiplok-apknleal-bzanlpl 36,000-114,000- 180,000 unit (Creon) administer with meals and/or snacks 1 cap PO QID 120 caps 3RF K86.89 - Other specified diseases of pancreas Coding Level of Care Code Est Pt Level 4 (73939) Diagnoses Tubular adenoma D36.9 Gastroesophageal reflux disease, unspecified whether esophagitis present K21.9 Esophagitis presence: esophagitis presence not specified Abdominal bloating R14.0 Exocrine pancreatic insufficiency K86.81 Slow transit constipation K59.01 Constipation type: slow transit constipation Time Spent (min) 35 Comment 20 minutes spent with patient and additional 10 minutes spent reviewing records
[2023-06-26 07:50] VITALS: BP 136/66; PULSE 55; RESP 18; BMI 28.2
== END 2023-06-26 08:35 | disposition home or self-care (01) ==
PROVIDERS: Visit Provider Nurse Practitioner Family
DX: D36.9 Benign neoplasm, unspecified site (principal); K21.9 Gastro-esophageal reflux disease without esophagitis; R14.0 Abdominal distension (gaseous); K86.81 Exocrine pancreatic insufficiency; K59.01 Slow transit constipation
CPT/HCPCS: 99214

== ENCOUNTER → 2023-06-26 07:44 | Outpatient (BNVA) | payer MEDICARE, SELFPAY | PROVIDERS: Visit Provider Nurse Practitioner Family | DX: K59.01 Slow transit constipation (principal); K21.9 Gastro-esophageal reflux disease without esophagitis; K86.81 Exocrine pancreatic insufficiency; R14.0 Abdominal distension (gaseous); D36.9 Benign neoplasm, unspecified site | CPT/HCPCS: 99212 ==

== ENCOUNTER 2023-10-23 08:01 | Outpatient (AMB) | payer MEDICARE, SELFPAY ==
[2023-10-23 08:14] VITALS: BP 149/83; PULSE 62; BMI 27.4
--- NOTE | 2023-10-23 08:14 | A.OFFVIS_ITS ---
Intake Vital Signs 10/23/23 08:14 Height 5 ft 8 in Weight 180 lb 5.41 oz BMI 27.4 BP 149/83 H Blood Pressure Location Lt brachial Position Sitting Pulse 62 Pulse Source Pulse Oximeter Intake Visit Reasons: 4 marcia h follow up to discuss colonoscopy Intake Note: Pt presents to the office today for a 4 month follow up to discuss colonoscopy. Pt states he is feeling well and denies any concerns at this time. Allergies ibuprofen Allergy (Mild, Verified 10/23/23 08:18) tongue swelling HPI 4 marcia h follow up to discuss colonoscopy HPI Details LAST VISIT Tubular adenoma Patient is due to go for colorectal screening after October of 2023, will make appointment next visit GERD (gastroesophageal reflux disease) Continue Nexium. Discussed with patient avoiding dietary triggers and late and snacking. Staying upright for minimum 3 hours after meals discussed with patient. Abdominal bloating Continue low FODMAP diet. Avoid dietary trigger. Exocrine pancreatic insufficiency Patient will start taking Creon with meals. Will increase the dose. Unlikely patient symptoms were related to Creon as his dose was very small. Constipation Patient will start taking Dulcolax tablets at bedtime. Patient was encouraged to increase fluid intake and activity to promote better bowel motility. I will see patient in 4 months so we can discuss going for colonoscopy. Patient is agreeable to this plan and verbalizes understanding of instructions. He was given the opportunity to ask questions and all questions answered. ? Thank you for allowing me to participate in his care Plan Medications New bisacodyl (Dulcolax (bisacodyl)) 10 mg (2 x 5 mg) PO BEDTIME 180 tabs 4RF esomeprazole magnesium (Nexium) 40 mg PO DAILY@1600 90 caps 2RF xbjzvf-osdringo-ycnqtzk 36,000-114,000- 180,000 unit (Creon) administer with meals and/or snacks 1 cap PO QID 120 caps 3RF K86.89 TODAY'S VISIT: Patient is here today for follow-up and to discuss going for colonoscopy. Patient reports to be feeling better. Takes Nexium daily and his symptoms of acid reflux are suppressed. Patient reports that he is moving his bowels better now. Patient denies melena, hematochezia, unintentional weight loss or ribbon like stools. Patient denies any dyspepsia, dysphagia or odynophagia. Patient reports that he has been forgetting in the last 2 weeks taking his Creon, however he is feeling well. Occasional postprandial abdominal bloating depending on what he eats. Patient denies any issues with anesthesia in the [facility]. Not on any anticoagulation medication [facility] Medical History Lupus HTN (hypertension) COPD (chronic obstructive pulmonary disease) Personal history of nicotine dependence Benign paroxysmal positional vertigo Pancreatic insufficiency GERD (gastroesophageal reflux disease) Tubular adenoma Tubulovillous adenoma Surgical History History of vasectomy History of left inguinal hernia repair History of colonoscopy History of esophagogastroduodenoscopy (EGD) Family History Father HTN (hypertension) Mother Cancer Sister Cancer Social History Household Members: Spouse Housing: House Do you presently have visiting nurse or other home services: No Alcohol intake: current Alcohol intake frequency: 3 or more drinks per day Alcohol type: beer Patient Tobacco Use Status: Former Tobacco user Quit Date: 2015 service: No Review of Systems Const Denies weight gain and Denies weight loss ENT Reports no additional complaints, Denies dysphagia and Denies odynophagia Card Reports no additional complaints Resp Reports no additional complaints GI Denies abdominal pain, Denies belching, Denies melena, Denies bloating, Denies change in bowel habits, Denies dysphagia, Denies excessive flatus, Denies dyspepsia, Denies heartburn, Denies diarrhea, Denies loose stools, Denies nausea, Denies odynophagia and Denies vomiting Reports no additional complaints Musc Reports no additional complaints Neuro Reports no additional complaints Psych Reports no additional complaints Endo Reports no additional complaints Physical Exam Vital Signs: Last Vital Signs Pulse 62 10/23/23 08:14 BP 149/83 H 10/23/23 08:14 BMI result Body Mass Index 27.4 Const General: healthy appearing, no acute distress and well developed Nutritional Appearance: well nourished Orientation/consciousness: patient oriented x3 Resp Effort & Inspection: normal respiratory effort, able to speak in complete sentences, no tracheal deviation and symmetric chest movement Auscultation: clear to auscultation bilaterally Cardio Rate: regular rate GI Inspection: Yes normal to inspection and No distended Palpation (GI): Soft to palpation, not firm, nontender and No hepatosplenomegaly present Auscultation: normal bowel sounds General: Yes no CVA tenderness Back/Spine/Pelvis Back: no CVA tenderness Skin General skin exam: elasticity normal, turgor normal and dry skin Neuro General: patient oriented x3 Psych Appearance: grossly normal Mental Status: mental status grossly normal Assessment & Plan Assessment & Plan (1) Tubular adenoma: Comment: (TVA/TA on 2021, TA on 2022 scope) Code(s): D36.9 - Benign neoplasm, unspecified site (2) Tubulovillous adenoma: Comment: (TVA/TA on 2021, TA on 2022 scope) Code(s): D36.9 - Benign neoplasm, unspecified site (3) Exocrine pancreatic insufficiency: Code(s): K86.81 - Exocrine pancreatic insufficiency (4) GERD (gastroesophageal reflux disease): Code(s): K21.9 - Gastro-esophageal reflux disease without esophagitis Qualifiers: Esophagitis presence: esophagitis presence not specified Qualified Code(s): K21.9 - Gastro-esophageal reflux disease without esophagitis (5) Abdominal bloating: Code(s): R14.0 - Abdominal distension (gaseous) (6) Constipation: Code(s): K59.00 - Constipation, unspecified Qualifiers: Constipation type: slow transit constipation Qualified Code(s): K59.01 - Slow transit constipation Plan Continue PPI therapy. Patient will avoid dietary triggers and late night snacking. Staying upright for minimum 3 hours after meals discussed with patient. Continue Creon with meals. Continue with Dulcolax if no BM for 1-2 days. Patient was encouraged to take Dulcolax daily for at least 1 week before the procedure. What to expect before during and after the procedure discussed with patient. The importance of good bowel prep and clear liquid diet day before procedure discussed with patient. I will see him after the procedure, sooner on as needed basis. Patient is agreeable to this plan and verbalizes understanding of instructions. He was given the opportunity to ask questions and all questions answered. Thank you for allowing me to participate in his care Medications: New polyethylene glycol 3350 (Miralax) As directed by gastroenterology department at [facility] 238 grams PO ONCE 238 grams 0RF Z12.11 - Encounter for screening for malignant neoplasm of colon Refilled bisacodyl (Dulcolax (bisacodyl)) 10 mg (2 x 5 mg) PO BEDTIME 180 tabs 4RF Coding Level of Care Code Est Pt Level 4 (26598) Diagnoses Tubular adenoma D36.9 Tubulovillous adenoma D36.9 Exocrine pancreatic insufficiency K86.81 Gastroesophageal reflux disease, unspecified whether esophagitis present K21.9 Esophagitis presence: esophagitis presence not specified Abdominal bloating R14.0 Slow transit constipation K59.01 Constipation type: slow transit constipation Time Spent (min) 35 Comment 20 minutes spent with patient and additional 15 minutes spent reviewing his records
== END 2023-10-23 08:49 | disposition home or self-care (01) ==
PROVIDERS: PCP Internal Medicine; Visit Provider Nurse Practitioner Family
DX: D36.9 Benign neoplasm, unspecified site (principal); K86.81 Exocrine pancreatic insufficiency; K21.9 Gastro-esophageal reflux disease without esophagitis; R14.0 Abdominal distension (gaseous); K59.01 Slow transit constipation
CPT/HCPCS: 99214

== ENCOUNTER → 2023-10-23 08:01 | Outpatient (BNVA) | payer MEDICARE, SELFPAY | PROVIDERS: PCP Internal Medicine; Visit Provider Nurse Practitioner Family | DX: D36.9 Benign neoplasm, unspecified site (principal); K86.81 Exocrine pancreatic insufficiency; K21.9 Gastro-esophageal reflux disease without esophagitis; K59.01 Slow transit constipation; R14.0 Abdominal distension (gaseous) | CPT/HCPCS: 99212 ==

== ENCOUNTER 2024-01-29 08:36 | Outpatient (REF) | payer MEDICARE, SELFPAY ==
--- NOTE | ~2024-01-29 | XR_ITS ---
EXAMINATION: XR BILATERAL KNEES STANDING AND RIGHT KNEE CLINICAL INFORMATION: Reason for Exam M25.561 - Pain in right knee COMPARISON: Knee radiographs 10/05/2006 TECHNIQUE: 1 view of the bilateral knees standing. 4 views of the right knee. FINDINGS: RIGHT KNEE: No acute fracture or dislocation. Moderate osteophytes of the knee with loss of medial compartment joint space and medial compartment osteophytes. No joint effusion. Atherosclerotic vascular calcification. LEFT KNEE: Limited single view of the left knee is remarkable for advanced osteoarthritis with complete loss of medial compartment joint space and medial compartment osteophytes with varus angulation of the knee progressed from prior. XR/XR knee RT 3V IMPRESSION: RIGHT KNEE: Moderate degenerative changes of the knee. LEFT KNEE: Limited single view of the left knee is remarkable for advanced osteoarthritis and varus angulation of the knee progressed from prior.
== END 2024-01-29 08:37 | disposition home or self-care (01) ==
LOC: HO.HOSX 08:36
PROVIDERS: Visit Provider Orthopaedic Surgery
DX: M25.561 Pain in right knee (principal); M17.12 Unilateral primary osteoarthritis, left knee
CPT/HCPCS: 73562; 99202

== ENCOUNTER 2024-01-29 09:38 | Outpatient (AMB) | payer MEDICARE, SELFPAY ==
--- NOTE | 2024-01-29 09:59 | MHC.OFFVIS ---
Vital Signs 01/29/24 10:00 Height 5 ft 7 in Weight 179 lb BMI 28.0 Intake Visit Reasons: [employer]GER-bilateral knee OA/pain Intake Note: Hardy, 68 yr old male, presents as a new pt with bilateral knee pain. Pt reports more pain in his LT knee as it has gradually been getting worse over the past 10 years, whereas his RT knee has only been bothering him for about 3 years. He expereinces the most pain while walking up stairs and can feel clicking in his LT knee. 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 He last had a injection in his right knee about a month ago at an outside clinic and this was very helpful for him. He has had injections and gel injections into his left knee which have not been helpful. He states he is very active and walks all the time. He describes pain that prevents him from walking for more than 20 minutes and even then it is quite slowly. He also has pain with stairs and standing from a seated position. He has a history of lupus and was on chronic steroids until about 3-4 years ago. His lupus however is limited to paraspinal cutaneous lesions? 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 [facility] Medical History Lupus HTN (hypertension) COPD (chronic obstructive pulmonary disease) Personal history of nicotine dependence Benign paroxysmal positional vertigo Pancreatic insufficiency GERD (gastroesophageal reflux disease) Tubular adenoma Tubulovillous adenoma Surgical History History of vasectomy History of left inguinal hernia repair History of colonoscopy History of esophagogastroduodenoscopy (EGD) Family History Father HTN (hypertension) Mother Cancer Sister Cancer Social History Household Members: Spouse Housing: House Do you presently have visiting nurse or other home services: No Alcohol intake: current Alcohol intake frequency: 3 or more drinks per day Alcohol type: beer Patient Tobacco Use Status: Former Tobacco user service: No Physical Exam Vital Signs: BMI result Body Mass Index 28.0 Extrem Other: left knee with ttp over joint line mild effusion Results Reviewed Results Reviewed: I personally reviewed relevant radiographs. Severe bilateral knee osteoarthritis left greater than right. Assessment & Plan Assessment & Plan (1) Osteoarthritis of left knee: Code(s): M17.12 - Unilateral primary osteoarthritis, left knee Category: Medical Plan: This is a 68-year-old gentleman with severe arthritis of the left knee. We discussed treatment options. This included a discussion regarding steroids, viscosupplementation and PRP. I also described options available to him with a pain management office. Lastly we discussed surgery. He is hesitant to undergo surgery for unclear reasons but I understand this and encourage him to think about how limited he is or isn't. From a radiographic and clinical perspective he has a reasonable candidate. If he wants to pursue this he will get in touch with me in the future. Orders: Orders XR knee RT 3V Today M25.561 - Pain in right knee Coding Level of Care Code New Pt Level 4 (01100) Diagnoses Osteoarthritis of left knee M17.12
[2024-01-29 10:00] VITALS: BMI 28.0
== END 2024-01-29 10:18 | disposition home or self-care (01) ==
PROVIDERS: PCP Internal Medicine; Visit Provider Orthopaedic Surgery
DX: M17.12 Unilateral primary osteoarthritis, left knee (principal)
CPT/HCPCS: 99203

== ENCOUNTER 2024-02-06 09:19 | Day surgery (SDC) | payer MEDICARE, SELFPAY ==
[2024-02-06 09:51] VITALS: BMI 26.9
[2024-02-06 09:57] VITALS: BMI 26.9
[2024-02-06 09:59] VITALS: BP 181/83; PULSE 66; RESP 16; TEMP 36.4; O2SAT 97
[2024-02-06] MEDS: Lactated Ringers 1,000 ML 50 ML IVCONT (10:12)
--- NOTE | 2024-02-06 10:13 | MHC.SHP ---
Pre-Procedural Eval Section A - 24 Hr Update-Section A only Date of Service: 02/06/24 Section B - Complete if H&P > 30 days Chief Complaint: Benign neoplasm, unspecified site Relevant Family History (Specify if Yes): No Relevant Social History: None Present Medications: see Short Stay Collaborative assessment Medical History: Significant History (GERD (gastroesophageal reflux disease) HTN (hypertension) Lupus Pancreatic insufficiency Tubulovillous adenoma) History of Previous Operations: Relevant previous surgery/procedure and date(s) (History of esophagogastroduodenoscopy (EGD) Hx of colonoscopy Hx of hernia repair) Allergies: Allergies Allergy/AdvReac Type Severity Reaction Status Date / Time ibuprofen Allergy Mild tongue Verified 01/29/24 10:02 swelling Review of Systems Sugical H&P ROS: Negative: Constitution, Cardiovascular, Respiratory, Neurological, Psychiatric, Hem-Onc, Allergic/Immunologic, Gastrointestinal, Genitourinary, Musculoskeletal, Integumentary, Endocrine and Eyes/Ears/Nose/Throat Exam Surgical H&P Exam: Normal: HEENT, Normal: Heart, Normal: Lungs, Normal: Extremities, Normal: Abdomen, Normal: Skin and Normal: Neurological Plan Diagnosis/Plan: Unchanged I have reviewed the history and physical and performed a pertinent physical examination on my patient. No changes have occurred unless specified. Time Spent With Patient Time: Total time managing care of this patient today ____ minutes.
--- NOTE | 2024-02-06 10:50 | P.OPN-COLO_ITS ---
Colonoscopy Operative Note Operative Note Date of Service: 02/06/24 Narrative: Operative Information Procedure Description: Colonoscopy Indication: hx of colon polyps Anesthesia: MAC COLONOSCOPY Instrument: Olympus variable stiffness pediatric scope 190L Colonoscopy Monitoring: Vital signs and clinical assessment, continuous EKG monitoring, Pulse oximetry, Carbon Dioxide monitoring and blood pressure monitoring were done throughout the procedure. Colon withdrawal time was 12 minutes. Procedure: The patient was placed in the left lateral decubitis position and pre-procedure medications were administered. After a digital rectal examination of the ano-rectum, the video colonoscope was inserted into the rectum and advanced through the colon to the cecum/TI. The colonoscope was slowly withdrawn in a retrograde panoramic fashion and the colon mucosa was carefully examined including a retroflexed view of the rectum. Findings and interventions are described below. Procedure Difficulty: moderate Findings: Terminal Ileum-normal Cecum:normal Ascending Colon: 3-4 mm sessile polyp removed with cold forceps, mid, diverticulosis Transverse Colon - x2 sessile polyps 8-10 mm removed with cold snare Descending Colon:normal Sigmoid Colon: severe diverticulosis with narrow lumen, 3-4 mm sessile polyp removed with cold forceps Rectum: Retroflexion with medium sized internal hemorrhoids seen, grade I Anorectum - normal Intervention: cold snare, cold forceps polypectomy Colon preparation: [place] Bowel Preparation Scale Right colon; 3 Transverse colon: 2 Left colon; 2 (0 = Unprepared colon segment with mucosa not seen due to solid stool that cannot be cleared. 1 = Portion of mucosa of the colon segment seen, but other areas of the colon segment not well seen due to staining, residual stool and/or opaque liquid. 2 = Minor amount of residual staining, small fragments of stool and/or opaque liquid, but mucosa of colon segment seen well. 3 = Entire mucosa of colon segment seen well with no residual staining, small fragments of stool or opaque liquid) Impression and Post Procedure Diagnosis: diverticulosis colon polyps internal hemorrhoids Plan: High fiber diet leaflet Avoid straining at stool, epsom salts and sitz bath, anusol supps or cream Repeat Colonoscopy in 5 years or earlier if clinically indicated Above findings were reviewed with the patient and relevant handouts were provided if indicated.
--- NOTE | 2024-02-06 10:58 | HO.ANESPROP2 ---
[facility] Active Problems Active Problems: All Active Problems Osteoarthritis of left knee (Acute) Emphysema lung (Acute) Recurrent pneumonia (Acute) Community acquired pneumonia (Acute) Lupus (Acute) COPD (chronic obstructive pulmonary disease) (Acute) Personal history of nicotine dependence (Acute) Tubular adenoma (Acute) Tubulovillous adenoma (Acute) Past Medical History Medical History Personal history of nicotine dependence COPD (chronic obstructive pulmonary disease) Benign paroxysmal positional vertigo Tubular adenoma Lupus Pancreatic insufficiency Tubulovillous adenoma GERD (gastroesophageal reflux disease) HTN (hypertension) Family History Family History Father HTN (hypertension) Mother Cancer Sister Cancer Family history of problems with anesthesia: No Surgical History Surgical History Hx of tonsillectomy History of vasectomy History of colonoscopy History of left inguinal hernia repair History of esophagogastroduodenoscopy (EGD) History of Problems with Anesthesia: No Social History Social History Household Members: Spouse Housing: House Do you presently have visiting nurse or other home services: No Alcohol intake: current Alcohol intake frequency: 3 or more drinks per day Alcohol type: beer Patient Tobacco Use Status: Former Tobacco user Use of substances other than those prescribed or required for medical reasons: No Are you DNR?: No Advance Directives: No Advance Directives Information Provided: Yes service: No Meds Allergies Allergy/AdvReac Type Severity Reaction Status Date / Time ibuprofen Allergy Mild tongue Verified 01/29/24 10:02 swelling Active Medications: Current Medications Lactated Ringer's (Lr) 1,000 mls @ 50 mls/hr IVCONT .Q20H CHRISTOPHER Last Admin: 02/06/24 10:12 Dose: 50 mls/hr Home Medications ?Medication ?Instructions ?Recorded ?Confirmed ?Last Taken ?Type amlodipine 5 mg tablet 5 mg PO BEDTIME 08/26/21 06/26/23 03/13/23 History atenolol 25 mg tablet 75 mg PO DAILY@1300 08/26/21 06/26/23 03/13/23 History losartan 100 mg tablet 100 mg PO DAILY 08/26/21 06/26/23 03/13/23 History hydroxychloroquine 200 mg tablet 200 mg PO BID 03/14/23 06/26/23 03/13/23 History multivitamin 1 tab PO DAILY 03/21/23 06/26/23 Unknown History Exam Height,Weight and Vital Signs: Height 5 ft 7 in Weight 172 lb Last Vital Signs Temp 97.6 F 02/06/24 09:59 Pulse 66 02/06/24 09:59 Resp 16 02/06/24 09:59 BP 181/83 H 02/06/24 09:59 Pulse Ox 97 02/06/24 09:59 O2 Del Method Room Air 02/06/24 09:59 Airway Mallampati Class: I TM Dist: >3cm Neck ROM: Full Denture: Upper Loose/Missing/Broken Teeth: Yes Assessment and Plan Assessment Anesthesia Assessment: Anesthesia Plan Discussed Final Anesthetic Review Family History of Problems with Anesthesia: No History of Problems with Anesthesia: No NPO: Yes ASA Class: III Final Preanesthetic Review: No Changes in Pt Med Stat, Meds/Allgs Chart Reviewed, Consent Obtained/Reviewed and Anes Risks/Benef Reviewed Patient Risk: Intermediate Procedure Risk: Low Anesthetic Plan Anesthetic Plan: MAC: Disposition: Standard PACU
[2024-02-06 11:39] VITALS: BP 116/65; PULSE 68; RESP 16; TEMP 36.3; O2SAT 96
--- NOTE | 2024-02-06 11:44 | HO.ANESPROP2 ---
HPI - Anesthesia Eval Consult details Narrative: 68 M for colo PMFSH Active Problems Active Problems: All Active Problems Osteoarthritis of left knee (Acute) Emphysema lung (Acute) Recurrent pneumonia (Acute) Community acquired pneumonia (Acute) Lupus (Acute) COPD (chronic obstructive pulmonary disease) (Acute) Personal history of nicotine dependence (Acute) Tubular adenoma (Acute) Tubulovillous adenoma (Acute) Past Medical History Medical History Personal history of nicotine dependence COPD (chronic obstructive pulmonary disease) Benign paroxysmal positional vertigo Tubular adenoma Lupus Pancreatic insufficiency Tubulovillous adenoma GERD (gastroesophageal reflux disease) HTN (hypertension) Family History Family History Father HTN (hypertension) Mother Cancer Sister Cancer Family history of problems with anesthesia: No Surgical History Surgical History Hx of tonsillectomy History of vasectomy History of colonoscopy History of left inguinal hernia repair History of esophagogastroduodenoscopy (EGD) History of Problems with Anesthesia: No Social History Social History Household Members: Spouse Housing: House Do you presently have visiting nurse or other home services: No Alcohol intake: current Alcohol intake frequency: 3 or more drinks per day Alcohol type: beer Patient Tobacco Use Status: Former Tobacco user service: No Meds Allergies Allergy/AdvReac Type Severity Reaction Status Date / Time ibuprofen Allergy Mild tongue Verified 01/29/24 10:02 swelling Active Medications: Current Medications Lactated Ringer's (Lr) 1,000 mls @ 50 mls/hr IVCONT .Q20H CHRISTOPHER Last Admin: 02/06/24 10:12 Dose: 50 mls/hr Home Medications ?Medication ?Instructions ?Recorded ?Confirmed ?Last Taken ?Type amlodipine 5 mg tablet 5 mg PO BEDTIME 08/26/21 06/26/23 03/13/23 History atenolol 25 mg tablet 75 mg PO DAILY@1300 08/26/21 06/26/23 03/13/23 History losartan 100 mg tablet 100 mg PO DAILY 08/26/21 06/26/2303/13/23 History hydroxychloroquine 200 mg tablet 200 mg PO BID 03/14/23 06/26/23 03/13/23 History multivitamin 1 tab PO DAILY 03/21/23 06/26/23 Unknown History Exam Height,Weight and Vital Signs: Height 5 ft 7 in Weight 172 lb Last Vital Signs Temp 97.3 F 02/06/24 11:39 Pulse 68 02/06/24 11:39 Resp 16 02/06/24 11:39 BP 116/65 02/06/24 11:39 Pulse Ox 96 02/06/24 11:39 O2 Del Method Room Air 02/06/24 11:39 Airway Mallampati Class: II TM Dist: >3cm Neck ROM: Full Denture: Upper Loose/Missing/Broken Teeth: Yes Assessment and Plan Assessment Anesthesia Assessment: Anesthesia Plan Discussed and Chart Reviewed Final Anesthetic Review Family History of Problems with Anesthesia: No History of Problems with Anesthesia: No NPO: Yes ASA Class: III Final Preanesthetic Review: No Changes in Pt Med Stat, Meds/Allgs Chart Reviewed, Consent Obtained/Reviewed and Anes Risks/Benef Reviewed Patient Risk: Intermediate Procedure Risk: Low Anesthetic Plan Anesthetic Plan: MAC: Disposition: Standard PACU
[2024-02-06 11:54] VITALS: BP 120/77; PULSE 72; RESP 15; TEMP 36.6; O2SAT 98
== END 2024-02-06 12:20 | disposition home or self-care (01) ==
PROVIDERS: PCP Internal Medicine; Visit Provider Internal Medicine Gastroenterology
PROC: 0DJD8ZZ Inspection of Lower Intestinal Tract, Via Natural or Artificial Opening Endoscopic (ICD-10-PCS; CPT 45378; principal; 2024-02-06 11:30)
DX: Z12.11 Encounter for screening for malignant neoplasm of colon (principal); D12.2 Benign neoplasm of ascending colon; D12.3 Benign neoplasm of transverse colon; K56.2 Volvulus; K57.30 Diverticulosis of large intestine without perforation or abscess without bleeding; K64.8 Other hemorrhoids; Z86.010 Personal history of colon polyps; I10 Essential (primary) hypertension; J44.9 Chronic obstructive pulmonary disease, unspecified; M32.9 Systemic lupus erythematosus, unspecified; Z87.891 Personal history of nicotine dependence; K86.81 Exocrine pancreatic insufficiency; K59.00 Constipation, unspecified
CPT/HCPCS: 45380; 45385; 88305; J2704

== ENCOUNTER → 2024-02-06 09:19 | Outpatient (BNV) | payer MEDICARE, SELFPAY | PROVIDERS: PCP Internal Medicine; Visit Provider Internal Medicine Gastroenterology | DX: Z12.11 Encounter for screening for malignant neoplasm of colon (principal); Z86.010 Personal history of colon polyps; D12.3 Benign neoplasm of transverse colon; D12.2 Benign neoplasm of ascending colon; K63.5 Polyp of colon; K57.90 Diverticulosis of intestine, part unspecified, without perforation or abscess without bleeding; K64.0 First degree hemorrhoids | CPT/HCPCS: 45380; 45385 ==

== ENCOUNTER 2024-02-19 08:05 | Outpatient (AMB) | payer MEDICARE, SELFPAY ==
--- NOTE | 2024-02-19 08:41 | A.OFFVIS_ITS ---
Vital Signs 02/19/24 08:45 Height 5 ft 7 in Weight 178 lb 2.136 oz BMI 27.9 BP 142/74 H Blood Pressure Location Rt brachial Position Sitting Pulse 50 Pulse Source Pulse Oximeter Pulse Oximetry (%) 97 Oxygen Delivery Method Room Air Intake Visit Reasons: s/p colon Intake Note: Hardy presents in office today for a scheduled post colo FUV CC; Pt reports that he is here today to discuss the results of his procedure. Pt denies any complications or new sx post op. Beater Operator Required: No Allergies ibuprofen Allergy (Mild, Verified 02/19/24 08:41) tongue swelling HPI HPI s/p colon: Details: LAST VISIT Tubular adenoma Tubulovillous adenoma Exocrine pancreatic insufficiency GERD (gastroesophageal reflux disease) Abdominal bloating Constipation Plan Continue PPI therapy. Patient will avoid dietary triggers and late night snacking. Staying upright for minimum 3 hours after meals discussed with patient. Continue Creon with meals. Continue with Dulcolax if no BM for 1-2 days. Patient was encouraged to take Dulcolax daily for at least 1 week before the procedure. What to expect before during and after the procedure discussed with patient. The importance of good bowel prep and clear liquid diet day before procedure discussed with patient. I will see him after the procedure, sooner on as needed basis. Patient is agreeable to this plan and verbalizes understanding of instructions. He was given the opportunity to ask questions and all questions answered. ? Thank you for allowing me to participate in his care Medications New polyethylene glycol 3350 (Miralax) As directed by gastroenterology department at [facility] 238 grams PO ONCE 238 grams 0RF Z12.11 Refilled bisacodyl (Dulcolax (bisacodyl)) 10 mg (2 x 5 mg) PO BEDTIME 180 tabs 4RF COLONOSCOPY Findings: Terminal Ileum-normal Cecum:normal Ascending Colon: 3-4 mm sessile polyp removed with cold forceps, mid, diverticulosis Transverse Colon - x2 sessile polyps 8-10 mm removed with cold snare Descending Colon:normal Sigmoid Colon: severe diverticulosis with narrow lumen, 3-4 mm sessile polyp removed with cold forceps Rectum: Retroflexion with medium sized internal hemorrhoids seen, grade I Anorectum - normal Intervention: cold snare, cold forceps polypectomy Colon preparation: [place] Bowel Preparation Scale Right colon; 3 Transverse colon: 2 Left colon; 2 (0 = Unprepared colon segment with mucosa not seen due to solid stool that cannot be cleared. 1 = Portion of mucosa of the colon segment seen, but other areas of the colon segment not well seen due to staining, residual stool and/or opaque liquid. 2 = Minor amount of residual staining, small fragments of stool and/or opaque liquid, but mucosa of colon segment seen well. 3 = Entire mucosa of colon segment seen well with no residual staining, small fragments of stool or opaque liquid) Impression and Post Procedure Diagnosis: diverticulosis colon polyps internal hemorrhoids Plan: High fiber diet leaflet Avoid straining at stool, epsom salts and sitz bath, anusol supps or cream Repeat Colonoscopy in 5 years or earlier if clinically indicated PATHOLOGY RESULTS Diagnosis A. Colon, sigmoid, polyp: Consistent with hyperplastic polyp. B. Colon, ascending, polyp: Tubular adenoma; negative for high-grade dysplasia and carcinoma. C. Colon, transverse, polyps: Tubular adenomas, two; negative for high-grade dysplasia and carcinoma TODAY'S VISIT patient is here today for follow-up and to discuss colonoscopy results. Tubular adenoma found in 3 year recommendation colonoscopy recall. Patient denies any ill effects from the prep, anesthesia or procedure itself. Patient reports that he has been doing well. His bowels normalized. No longer has diarrhea. Patient reports that forgets to take his Creon. Has not taking in the last month or so. Patient states that he does not feel any different after stopping. Patient denies any melena, hematochezia, denies dyspepsia, dysphagia or odynophagia. Takes Nexium in the afternoon to prevent worsening symptoms at night time. Patient reports that he has been doing this for the past few months and feels that it works this for him. Patient denies any other GI concerning symptoms. [facility] Medical History Personal history of nicotine dependence COPD (chronic obstructive pulmonary disease) Benign paroxysmal positional vertigo Tubular adenoma Lupus Pancreatic insufficiency Tubulovillous adenoma GERD (gastroesophageal reflux disease) HTN (hypertension) Surgical History Hx of tonsillectomy History of vasectomy History of colonoscopy History of left inguinal hernia repair History of esophagogastroduodenoscopy (EGD) Family History Father HTN (hypertension) Mother Cancer Sister Cancer Social History Household Members: Spouse Housing: House Do you presently have visiting nurse or other home services: No Alcohol intake: current Alcohol intake frequency: 3 or more drinks per day Alcohol type: beer Patient Tobacco Use Status: Former Tobacco user service: No Review of Systems Const Denies weight gain and Denies weight loss ENT Reports no additional complaints, Denies dysphagia and Denies odynophagia Card Reports no additional complaints Resp Reports no additional complaints GI Denies abdominal pain, Denies belching, Denies melena, Denies bloating, Denies change in bowel habits, Denies dysphagia, Denies excessive flatus, Denies dyspepsia, Denies heartburn, Denies diarrhea, Denies loose stools, Denies nausea, Denies odynophagia and Denies vomiting Reports no additional complaints Musc Reports no additional complaints Neuro Reports no additional complaints Psych Reports no additional complaints Endo Reports no additional complaints Physical Exam Vital Signs: Last Vital Signs Pulse 50 02/19/24 08:45 BP 142/74 H 02/19/24 08:45 Pulse Ox 97 02/19/24 08:45 Oxygen Delivery Method Room Air 02/19/24 08:45 BMI result Body Mass Index 27.9 Const General: healthy appearing, no acute distress and well developed Nutritional Appearance: well nourished Orientation/consciousness: patient oriented x3 Resp Effort & Inspection: normal respiratory effort, able to speak in complete sentences, no tracheal deviation and symmetric chest movement Auscultation: clear to auscultation bilaterally Cardio Rate: regular rate GI Inspection: Yes normal to inspection and No distended Palpation (GI): Soft to palpation, not firm, nontender and No hepatosplenomegaly present Auscultation: normal bowel sounds General: Yes no CVA tenderness Back/Spine/Pelvis Back: no CVA tenderness Skin General skin exam: elasticity normal, turgor normal and dry skin Neuro General: patient oriented x3 Psych Appearance: grossly normal Mental Status: mental status grossly normal Assessment & Plan Assessment & Plan (1) Tubular adenoma: Code(s): D36.9 - Benign neoplasm, unspecified site Category: Medical (2) Tubulovillous adenoma: Code(s): D36.9 - Benign neoplasm, unspecified site Category: Medical (3) Exocrine pancreatic insufficiency: Code(s): K86.81 - Exocrine pancreatic insufficiency (4) GERD (gastroesophageal reflux disease): Code(s): K21.9 - Gastro-esophageal reflux disease without esophagitis Qualifiers: Esophagitis presence: esophagitis presence not specified Qualified Code(s): K21.9 - Gastro-esophageal reflux disease without esophagitis (5) Abdominal bloating: Code(s): R14.0 - Abdominal distension (gaseous) (6) Constipation: Code(s): K59.00 - Constipation, unspecified Qualifiers: Constipation type: slow transit constipation Qualified Code(s): K59.01 - Slow transit constipation (7) Status post colonoscopy: Code(s): Z98.890 - Other specified postprocedural states Plan Colonoscopy in 3 years, sooner if clinically necessary. Continue Nexium daily. Avoid dietary triggers and late night snacking. Staying upright for minimum 3 hours after meals discussed with patient. Continue high-fiber diet. Will retest for pancreatic insufficiency as last sample that patient gave us was loose stools. Possible this was the reason for low pancreatic elastase. Dulcolax on as needed basis. Follow-up in the office in 6 months, sooner on as needed basis. Patient is agreeable to this plan and verbalizes understanding of instructions. He was given the opportunity to ask questions and all questions answered. Thank you for allowing me to participate in his care Orders: Orders Pancreatic Elastase-1 Today R10.9 - Unspecified abdominal pain Coding Level of Care Code Est Pt Level 3 (72136) Diagnoses Tubular adenoma D36.9 Tubulovillous adenoma D36.9 Exocrine pancreatic insufficiency K86.81 Gastroesophageal reflux disease, unspecified whether esophagitis present K21.9 Esophagitis presence: esophagitis presence not specified Abdominal bloating R14.0 Slow transit constipation K59.01 Constipation type: slow transit constipation Status post colonoscopy Z98.890 Time Spent (min) 30 Comment 20 minutes spent with patient and additional 10 minutes spent reviewing his records
[2024-02-19 08:45] VITALS: BP 142/74; PULSE 50; O2SAT 97; BMI 27.9
== END 2024-02-19 09:22 | disposition home or self-care (01) ==
PROVIDERS: PCP Internal Medicine; Visit Provider Nurse Practitioner Family
DX: D36.9 Benign neoplasm, unspecified site (principal); K86.81 Exocrine pancreatic insufficiency; K21.9 Gastro-esophageal reflux disease without esophagitis; R14.0 Abdominal distension (gaseous); K59.01 Slow transit constipation; Z98.890 Other specified postprocedural states
CPT/HCPCS: 99213

== ENCOUNTER → 2024-02-19 08:05 | Outpatient (BNVA) | payer MEDICARE, SELFPAY | PROVIDERS: PCP Internal Medicine; Visit Provider Nurse Practitioner Family | DX: D36.9 Benign neoplasm, unspecified site (principal); K86.81 Exocrine pancreatic insufficiency; K21.9 Gastro-esophageal reflux disease without esophagitis; K59.01 Slow transit constipation; R14.0 Abdominal distension (gaseous); Z98.890 Other specified postprocedural states | CPT/HCPCS: 99212 ==

== ENCOUNTER 2024-02-23 09:23 | Outpatient (REF) | payer MEDICARE, SELFPAY ==
[2024-03-03 15:43] LABS: Pancreatic Elastase-1 >500 mcg/g
== END 2024-02-23 09:24 | disposition home or self-care (01) ==
LOC: HO.LNP 09:23
PROVIDERS: Visit Provider Nurse Practitioner Family
DX: R10.9 Unspecified abdominal pain (principal)
CPT/HCPCS: 82656

== ENCOUNTER 2024-05-24 12:12 | Outpatient (AMB) | payer MEDICARE, SELFPAY ==
--- NOTE | 2024-05-24 12:14 | A.OFFVIS_ITS ---
Intake Visit Reasons: OV - Left Knee OA - Discuss Options Intake Note: Hardy is a 69 year old male who presents today for a follow up of his Left Knee Osteoarthritis. He was last seen in January of this year where treatment options such as Steroid injections, PRP, Viscosupplementation and Total Knee Arthroplasty were discussed. At that time he wished to hold off from surgery, today he presents to re-discuss his treatment options. He was recently seen at Rheumatology on 05/06 and both knees were injection. He felt relief to his right knee, however no relief to his left knee. Allergies ibuprofen Allergy (Mild, Verified 02/19/24 08:41) tongue swelling HPI HPI OV - Left Knee OA - Discuss Options: Details: Hardy is a 69 year old male who presents today for a follow up of his Left Knee Osteoarthritis. He was last seen in January of this year where treatment options such as Steroid injections, PRP, Viscosupplementation and Total Knee Arthroplasty were discussed. At that time he wished to hold off from surgery, today he presents to re-discuss his treatment options. He was recently seen at Rheumatology on 05/06 and both knees were injection. He felt relief to his right knee, however no relief to his left knee. [facility] Medical History Personal history of nicotine dependence COPD (chronic obstructive pulmonary disease) Benign paroxysmal positional vertigo Tubular adenoma Lupus Pancreatic insufficiency Tubulovillous adenoma GERD (gastroesophageal reflux disease) HTN (hypertension) Surgical History Hx of tonsillectomy History of vasectomy History of colonoscopy History of left inguinal hernia repair History of esophagogastroduodenoscopy (EGD) Family History Father HTN (hypertension) Mother Cancer Sister Cancer Social History Household Members: Spouse Housing: House Do you presently have visiting nurse or other home services: No Alcohol intake: current Alcohol intake frequency: 3 or more drinks per day Alcohol type: beer Patient Tobacco Use Status: Former Tobacco user service: No Physical Exam Extrem Other: left knee with ttp over joint line mild effusion Results Reviewed Results Reviewed: I personally reviewed relevant radiographs. Severe bilateral knee osteoarthritis left greater than right. Assessment & Plan Assessment & Plan (1) Osteoarthritis of left knee: Code(s): M17.12 - Unilateral primary osteoarthritis, left knee Category: Medical Plan: This is a 69-year-old gentleman with severe osteoarthritis of the left knee. He has had injections of both cortisone and hyaluronic acid which have not been helpful. We had a long discussion at previous visit and we also discussed surgery at this visit. I recommend left knee arthroplasty. I explained to him the risks, benefits and alternatives including to, but not limited to, the risk of infection, fracture, need for additional surgery, stiffness as well as medical complications including blood clots and pulmonary emboli and cardio pulmonary complications. He expressed understanding and we will proceed forward accordingly. Coding Level of Care Code Est Pt Level 4 (02377) Diagnoses Osteoarthritis of left knee M17.12
== END 2024-05-24 12:45 | disposition home or self-care (01) ==
PROVIDERS: PCP Internal Medicine; Visit Provider Orthopaedic Surgery
DX: M17.12 Unilateral primary osteoarthritis, left knee (principal)
CPT/HCPCS: 99214

== ENCOUNTER → 2024-05-24 12:12 | Outpatient (BNVA) | payer MEDICARE, SELFPAY | PROVIDERS: PCP Internal Medicine; Visit Provider Orthopaedic Surgery | DX: M17.12 Unilateral primary osteoarthritis, left knee (principal) | CPT/HCPCS: 99212 ==

== ENCOUNTER → 2024-07-11 07:45 | Outpatient (BNVA) | payer MEDICARE, SELFPAY | PROVIDERS: PCP Internal Medicine | DX: Z01.818 Encounter for other preprocedural examination (principal) ==

== ENCOUNTER 2024-08-19 08:51 | Outpatient (AMB) | payer MEDICARE, SELFPAY ==
--- NOTE | 2024-08-19 09:11 | A.OFFVIS_ITS ---
Vital Signs 08/19/24 09:15 Height 5 ft 7 in Weight 180 lb BMI 28.2 BP 134/65 Blood Pressure Location Lt brachial Position Sitting Pulse 58 Intake Visit Reasons: 6 month following Intake Note: Patient 6 month follow up for abdominal bloating and lab results. Patient denies any GI issues for today. 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 Continue Nexium daily. Avoid dietary triggers and late night snacking. Staying upright for minimum 3 hours after meals discussed with patient. Continue high-fiber diet. Will retest for pancreatic insufficiency as last sample that patient gave us was loose stools. Possible this was the reason for low pancreatic elastase. Dulcolax on as needed basis. Follow-up in the office in 6 months, sooner on as needed basis. Patient is agreeable to this plan and verbalizes understanding of instructions. He was given the opportunity to ask questions and all questions answered. ? Thank you for allowing me to participate in his care Orders Orders Pancreatic Elastase-1 Today R10.9 TODAY'S VISIT Patient is here today for follow-up. Patient reports that he has been doing well since last visit. Normal pancreatic elastase. Patient denies any dyspepsia, dysphagia or odynophagia. Continues to take Nexium every morning and his symptoms of acid reflux are suppressed. Patient denies any melena, hematoc hezia, unintentional weight loss or ribbon like stools. Patient reports to have good appetite. Denies any GI concerning symptoms today. Patient denies any nausea or vomiting. Denies any abdominal pain or cramping. Occasional postprandial abdominal bloating depending on what he eats. Uses Dulcolax as needed for constipation. [facility] Medical History Personal history of nicotine dependence COPD (chronic obstructive pulmonary disease) Benign paroxysmal positional vertigo Tubular adenoma Lupus Pancreatic insufficiency Tubulovillous adenoma GERD (gastroesophageal reflux disease) HTN (hypertension) Surgical History Hx of tonsillectomy History of vasectomy History of colonoscopy History of left inguinal hernia repair History of esophagogastroduodenoscopy (EGD) Family History Father HTN (hypertension) Mother Cancer Sister Cancer Social History Household Members: Spouse Housing: House Do you presently have visiting nurse or other home services: No Alcohol intake: current Alcohol intake frequency: 3 or more drinks per day Alcohol type: beer Patient Tobacco Use Status: Former Tobacco user service: No Review of Systems Const Denies weight gain and Denies weight loss ENT Reports no additional complaints, Denies dysphagia and Denies odynophagia Card Reports no additional complaints Resp Reports no additional complaints GI Denies abdominal pain, Denies belching, Denies melena, Denies bloating, Denies change in bowel habits, Denies dysphagia, Denies excessive flatus, Denies dyspepsia, Denies heartburn, Denies diarrhea, Denies loose stools, Denies nausea, Denies odynophagia and Denies vomiting Reports no additional complaints Musc Reports no additional complaints Neuro Reports no additional complaints Psych Reports no additional complaints Endo Reports no additional complaints Physical Exam Vital Signs: Last Vital Signs Pulse 58 08/19/24 09:15 BP 134/65 08/19/24 09:15 BMI result Body Mass Index 28.2 Const General: healthy appearing, no acute distress and well developed Nutritional Appearance: well nourished Orientation/consciousness: patient oriented x3 Resp Effort & Inspection: normal respiratory effort, able to speak in complete sentences, no tracheal deviation and symmetric chest movement Auscultation: clear to auscultation bilaterally Cardio Rate: regular rate GI Inspection: Yes normal to inspection and No distended Palpation (GI): Soft to palpation, not firm, nontender and No hepatosplenomegaly present Auscultation: normal bowel sounds General: Yes no CVA tenderness Back/Spine/Pelvis Back: no CVA tenderness Skin General skin exam: elasticity normal, turgor normal and dry skin Neuro General: patient oriented x3 Psych Appearance: grossly normal Mental Status: mental status grossly normal Assessment & Plan Assessment & Plan (1) Tubular adenoma: Code(s): D36.9 - Benign neoplasm, unspecified site Category: Medical (2) Tubulovillous adenoma: Code(s): D36.9 - Benign neoplasm, unspecified site Category: Medical (3) GERD (gastroesophageal reflux disease): Code(s): K21.9 - Gastro-esophageal reflux disease without esophagitis Qualifiers: Esophagitis presence: without esophagitis Qualified Code(s): K21.9 - Gastro-esophageal reflux disease without esophagitis (4) Abdominal bloating: Code(s): R14.0 - Abdominal distension (gaseous) (5) Constipation: Code(s): K59.00 - Constipation, unspecified Qualifiers: Constipation type: slow transit constipation Qualified Code(s): K59.01 - Slow transit constipation Plan Continue Nexium daily. Avoid dietary triggers and late night snacking. Staying upright for minimum 3 hours after meals discussed with patient. Continue Dulcolax on as-needed basis. Increase fluid intake and activity to promote better bowel motility. Increase fiber intake. Last colonoscopy in February of 2024, repeat in February of 2027 sooner if clinically necessary. Patient denies any GI concerning symptoms. Patient will return in 1 year, sooner on as needed basis. He is agreeable this plan and verbalizes understanding of instructions. He was given the opportunity to ask questions and all questions answered. Thank you for allowing me to participate in his care Coding Level of Care Code Est Pt Level 3 (03099) Diagnoses Tubular adenoma D36.9 Tubulovillous adenoma D36.9 Gastroesophageal reflux disease without esophagitis K21.9 Esophagitis presence: without esophagitis Abdominal bloating R14.0 Slow transit constipation K59.01 Constipation type: slow transit constipation Time Spent (min) 25 Comment 15 minutes spent with patient and additional 10 minutes spent reviewing his records
[2024-08-19 09:15] VITALS: BP 134/65; PULSE 58; BMI 28.2
== END 2024-08-19 09:28 | disposition home or self-care (01) ==
PROVIDERS: PCP Internal Medicine; Visit Provider Nurse Practitioner Family
DX: D36.9 Benign neoplasm, unspecified site (principal); K21.9 Gastro-esophageal reflux disease without esophagitis; R14.0 Abdominal distension (gaseous); K59.01 Slow transit constipation
CPT/HCPCS: 99213

== ENCOUNTER → 2024-08-19 08:51 | Outpatient (BNVA) | payer MEDICARE, SELFPAY | PROVIDERS: PCP Internal Medicine; Visit Provider Nurse Practitioner Family | DX: K59.01 Slow transit constipation (principal); K21.9 Gastro-esophageal reflux disease without esophagitis; D36.9 Benign neoplasm, unspecified site; R14.0 Abdominal distension (gaseous) | CPT/HCPCS: 99212 ==

== ENCOUNTER 2024-12-11 02:55 | Inpatient (IN) | payer MEDICARE, SELFPAY ==
[2024-12-11] VITALS (14 sets, daily range): BP systolic 117–144; BP diastolic 65–93; PULSE 69–102; RESP 16–20; TEMP 36–37.4; O2SAT 90–98; BMI 26.6
--- NOTE | ~2024-12-11 | XR_ITS ---
CLINICAL HISTORY: fever, cough 2 view chest x-ray Comparison: CR - XR CHEST 1V - 12/11/24 03:48 EDT Findings: Study performed at 4:59 a. m. PA and lateral chest x-ray confirms the abnormality of the patient's AP view of the chest from earlier today. There is dense consolidation within the lingula and left lower lobe most characteristic of multifocal pneumonia. There is continued mild elevation of the left hemidiaphragm with potential small left pleural effusion. Cardiac silhouette is unchanged. Right lung is clear. IMPRESSION: Unchanged consolidation within the left lung most characteristic of multifocal pneumonia. Again, follow up radiographs in 4-6 weeks suggested to ensure resolution. This document has been electronically signed by: Sid Azul MD on 12/11/2024 05:06:43
--- NOTE | ~2024-12-11 | XR_ITS ---
CLINICAL HISTORY: coughing Exam: AP port portable chest x-ray. Comparison: Chest CT May 08, 2023. Findings: Moderate elevation of the left hemidiaphragm. Dense consolidation within the left mid lung and left lung base with small left pleural effusion. Right lung is clear. Cardiac silhouette is at the upper limits of normal for size. Impression: Consolidation of the left mid lung and left lung base most characteristic of pneumonia. Follow up radiographs in 4-6 weeks suggested to ensure resolution. This document has been electronically signed by: Sid Azul MD on 12/11/2024 04:33:04
[2024-12-11 03:51] LABS: Basophils Absolute Auto 0.1 X10*3/uL (0.0-0.2); Basophils Percent Auto 0.6 % (0-2); Eosinophils Percent Auto 0.3 % (0-4); Hematocrit 36.2 % (42.0-52.0); Hemoglobin 13.4 g/dl (14.0-18.0); Imm Gran Abs Auto 0.06 X10*3/uL (0.00-0.03); Imm Gran Pct Auto 0.4 % (0.0-0.4); Lymphocytes Absolute Auto 0.8 X10*3/uL (1.2-4.9); Lymphocytes Percent Auto 5.8 % (20-40); MANUAL DIFF FLAG NO; Mean Corpuscular Hemoglobin 33.8 pg (27.0-33.0); Mean Corpuscular Volume 91.4 fL (80.0-98.0); Mean Platelet Volume 8.1 fL (9.4-12.4); Monocytes Absolute Auto 1.1 X10*3/uL (0.1-1.2); Monocytes Percent Auto 7.7 % (2-11); Neutrophils Percent Auto 85.2 % (45-73); Platelet Count 223 X10*3/uL (160-400); Red Blood Count 3.96 X10*6/uL (4.60-5.80)
--- NOTE | 2024-12-11 03:56 | ED_ITS ---
HPI - General Adult General Chief complaint: General Medical Stated complaint: fever Time Seen by Provider: 12/11/24 03:56 History of Present Illness ED Provider: Aga READ narrative: The patient is a 69-year-old male with a history of COPD. He has a history of smoking but says he stopped smoking about 10 years ago. He also has a history of lupus and is on hydroxychloroquine. The patient says that he has been diagnosed with COPD but has never required significant treatment for COPD problems although he has had episodes of pneumonia in the last few years. The patient has had worsening shortness of breath over the last several weeks. He saw his PCP 2 weeks ago who prescribed an inhaler which the patient says it was not very helpful. Tonight the patient had worsening cough and also developed a fever as high as 102 at home. He had chills. His drove him to the emergency room. Related Data Home Medications ?Medication ?Instructions ?Recorded ?Confirmed amlodipine 5 mg tablet 5 mg PO BEDTIME 08/26/21 07/11/24 losartan 100 mg tablet 100 mg PO DAILY 08/26/21 07/11/24 hydroxychloroquine 200 mg tablet 200 mg PO BID 03/14/23 07/11/24 multivitamin 1 tab PO DAILY 03/21/23 07/11/24 atenolol 50 mg tablet 50 mg PO DAILY 02/19/24 07/11/24 aspirin 650 mg tablet,extended 500 mg PO 08/19/24 release atenolol 25 mg tablet 50 mg PO DAILY@1300 08/19/24 Previous Rx's ?Medication ?Instructions ?Recorded bisacodyl 5 mg tablet,delayed 10 mg (2 x 5 mg) PO BEDTIME #180 10/23/23 release (Dulcolax (bisacodyl)) tabs esomeprazole magnesium 40 mg 40 mg PO DAILY #90 caps 05/27/24 capsule,delayed release walker #1 ea 06/24/24 Allergies Allergy/AdvReac Type Severity Reaction Status Date / Time ibuprofen Allergy Mild tongue Verified 12/11/24 03:06 swelling PMFSH Past Medical History Medical History Personal history of nicotine dependence COPD (chronic obstructive pulmonary disease) Benign paroxysmal positional vertigo Tubular adenoma Lupus Pancreatic insufficiency Tubulovillous adenoma GERD (gastroesophageal reflux disease) HTN (hypertension) Surgical History Hx of tonsillectomy History of vasectomy History of colonoscopy History of left inguinal hernia repair History of esophagogastroduodenoscopy (EGD) Family History Family History Father HTN (hypertension) Mother Cancer Sister Cancer Social History Social History Household Members: Spouse Housing: House Do you presently have visiting nurse or other home services: No Alcohol intake: current Alcohol intake frequency: 3 or more drinks per day Alcohol type: beer Patient Tobacco Use Status: Former Tobacco user Smoked in Last 30 Days: No Use of substances other than those prescribed or required for medical reasons: No Advance Directives: No Advance Directives Information Provided: Yes Do you have a plan to hurt others: No Plan Nutrition Risks: No Nutritional Risk service: No Physical Exam ED Vital Signs: Vital Signs - 24 hr 12/11/24 02:59 12/11/24 04:57 12/11/24 04:57 Temperature 99.3 F 99.4 F Pulse Rate 102 H 79 Respiratory Rate 20 16 Blood Pressure 127/72 117/71 Pulse Oximetry 91 L 90 L 94 Oxygen Delivery Method Room Air Room Air Nasal Cannula Oxygen Flow Rate 2 12/11/24 05:25 Temperature Pulse Rate 75 Respiratory Rate 18 Blood Pressure Pulse Oximetry Oxygen Delivery Method Oxygen Flow Rate BMI result Body Mass Index 26.6 Const Other: The patient is a somewhat chronically ill-appearing 69-year-old man. He is awake and alert. He is pleasant cooperative. He has not appear in overt distress. HENMT Other: Face is symmetrical, mucous membranes moist Eyes General: appearance normal, both eyes and all related structures Neck Neck: Yes normal visual inspection and Yes full ROM Resp Other: Diminished air entry bilaterally. Possibly some diffuse crackles. No estela wheezes. Cardio Rate: regular rate Rhythm: regular rhythm Heart sounds: S1 normal heart sound present and S2 normal heart sound present GI Other: The abdomen is soft and nontender Skin Other: Skin is pale and dry and unremarkable. Neuro Other: The patient is awake and alert with a normal mental status. Cranial nerves 2-12 are grossly intact. He moves his extremities normally and appropriately. Extrem Other: No calf swelling or tenderness. Medications Administered Generic Name Dose Route Start Last Admin Trade Name Freq PRN Reason Stop Dose Admin Albuterol/Ipratropium 3 ml 12/11/24 08:00 12/11/24 07:44 Albuterol/Iprat 2.5/0.5mg 3 Ml Ampul.Neb INHALE 3 ml RQ4H WHILE AWAKE CHRISTOPHER Administration Enoxaparin Sodium 40 mg 12/11/24 05:45 12/11/24 06:35 Enoxaparin Sodium 40 Mg/0.4 Ml Syringe SUBCUT 40 mg Q24H CHRISTOPHER Administration Prednisone 40 mg 12/11/24 05:50 12/11/24 06:35 Prednisone 20 Mg Tablet PO 40 mg DAILY CHRISTOPHER Administration Sodium Chloride 3 ml 12/11/24 08:00 12/11/24 07:33 0.9 % Sodium Chloride Flush 3 Ml Syringe IVFLUSH 3 ml QSHIFT CHRISTOPHER Administration Thiamine HCl 100 mg 12/11/24 09:00 12/11/24 07:33 Thiamine Hcl 100 Mg Tablet PO 100 mg DAILY CHRISTOPHER Administration Discontinued Medications Generic Name Dose Route Start Last Admin Trade Name Munira PRN Reason Stop Dose Admin Albuterol/Ipratropium 3 ml 12/11/24 05:05 12/11/24 05:20 Albuterol/Iprat 2.5/0.5mg 3 Ml Ampul.Neb INHALE 12/11/24 05:06 3 ml ONCE ONE Administration Ceftriaxone Sodium 1 gm 12/11/24 04:19 12/11/24 04:43 Ceftriaxone Sodium 1 Gm Vial IVPUSH 12/11/24 04:20 1 gm ONCE ONE Administration Azithromycin 500 mg/ Sodium 250 mls @ 125 mls/hr 12/11/24 04:19 12/11/24 06:47 Chloride IV 12/11/24 06:18 Infused ONCE ONE Infusion Lactated Ringer's 1,000 mls @ 999 mls/hr 12/11/24 06:00 12/11/24 07:48 Lr IV 12/11/24 07:00 Infused .Q1H1M CHRISTOPHER Infusion Medical Decision Making Medical Decision Making [facility] Narrative: The patient is a 69-year-old male who presents to the emergency room early this morning after having fevers at home with coughing. On chest x-ray he has what looks like a possible multifocal pneumonia. The patient has a history of lupus and is on hydroxychloroquine. [place] [address]. Other labs are unremarkable. Blood cultures were drawn. The patient's lactate was normal. He was started on empiric antibiotics for community-acquired pneumonia with ceftriaxone and azithromycin. It became apparent that he had an oxygen requirement. He was placed on 2 L nasal cannula. He was admitted to the hospitalist service. Lab Data 12/11/24 03:46 12/11/24 03:46 Labs: Lab Results 12/11/24 12/11/24 Range/Units 03:46 04:29 WBC 14.0 H (4.8-10.8) X10*3/uL RBC 3.96 L (4.60-5.80) X10*6/uL Hgb 13.4 L (14.0-18.0) g/dl Hct 36.2 L (42.0-52.0) % MCV 91.4 (80.0-98.0) fL MCH 33.8 H (27.0-33.0) pg MCHC 37.0 H (31.0-36.0) g/dl RDW 12.0 (11.0-16.0) % Plt Count 223 (160-400) X10*3/uL MPV 8.1 L (9.4-12.4) fL Immature Gran % (Auto) 0.4 (0.0-0.4) % Neut % (Auto) 85.2 H (45-73) % Lymph % (Auto) 5.8 L (20-40) % [place] % (Auto) 7.7 (2-11) % Eos % (Auto) 0.3 (0-4) % Baso % (Auto) 0.6 (0-2) % Lymph # (Auto) 0.8 L (1.2-4.9) X10*3/uL [place] # (Auto) 1.1 (0.1-1.2) X10*3/uL Eos # (Auto) 0.0 (0.0-0.4) X10*3/uL Baso # (Auto) 0.1 (0.0-0.2) X10*3/uL Abs Immat Gran (auto) 0.06 H (0.00-0.03) X10*3/uL Absolute Neuts (auto) 12.0 H (2.0-8.3) x10*3/uL Absolute Nucleated RBC 0.000 (0.0-0.012) X10*3/uL Nucleated RBC % (auto) 0.0 (0.0-0.2) /100WBC Sodium 135 (135-145) mmol/L Potassium 3.8 (3.3-5.1) mmol/L Chloride 102 (96-108) mmol/L Carbon Dioxide 23 (22-29) mmol/L Anion Gap 14 (12-20) BUN 9 (9-16) mg/dL Creatinine 0.75 (0.5-1.4) mg/dL Estim Creat Clear Calc 85.6 Estimated GFR > 60 Random Glucose 91 (60-115) mg/dL Lactic Acid 0.9 (0.5-2.0) mmol/L Calcium 9.4 (8.4-10.2) mg/dL C-Reactive Protein 2.37 H (< or = 0.50) mg/dL Influenza Type A (PCR) NEGATIVE (Negative) Influenza Type B (PCR) NEGATIVE (Negative) RSV RNA Qual (PCR) NEGATIVE (Negative) SARS-CoV-2 RNA (RT-PCR) NEGATIVE (Negative) Discharge Plan Discharge Clinical Impression: Pneumonia involving left lung Patient Disposition: Admitted As Inpatient
[2024-12-11 04:05] LABS: Anion Gap 14 (12-20); Blood Urea Nitrogen 9 mg/dL (9-16); Calcium 9.4 mg/dL (8.4-10.2); Carbon Dioxide 23 mmol/L (22-29); Chloride 102 mmol/L (96-108); Creatinine Clr Calc Pharmacy 85.6; Estimated Glomerular Filt Rate > 60; Glucose Random 91 mg/dL (60-115); Potassium 3.8 mmol/L (3.3-5.1); Sodium 135 mmol/L (135-145)
[2024-12-11 04:32] LABS: Influenza A PCR NEGATIVE (Negative); Influenza B PCR NEGATIVE (Negative); Resp Syncy Virus RNA Qual PCR NEGATIVE (Negative); SARS COV2 PCR INHOUSE NEGATIVE (Negative)
[2024-12-11 04:34] LABS: C Reactive Protein 2.37 mg/dL (< or = 0.50)
[2024-12-11] MEDS: cefTRIAXone sodium 1 GM VIAL IVPUSH (04:43)
[2024-12-11] MEDS: Azithromycin 500 MG in 0.9 % Sodium Chloride 250 ML 125 MG IV (04:43)
[2024-12-11 04:53] LABS: Lactic Acid 0.9 mmol/L (0.5-2.0)
[2024-12-11] MEDS: Albuterol/Iprat 2.5/0.5MG 3 ML AMPUL.NEB INHALE ×5 (05:20→20:40)
--- NOTE | 2024-12-11 05:36 | P.HPHOSP_ITS ---
History of Present Illness Date of Service: 12/11/24 Chief Complaint: Dyspnea, fever This is a 69-year-old male with pertinent history of hypertension, SLE, former tobacco use disorder, COPD not on home oxygen, gastroesophageal reflux disease, alcohol use disorder who presents to the emergency department for evaluation of fever and dyspnea. Patient states his symptoms started 3-4 weeks prior to presentation. He has been having ongoing dyspnea which is worse with exertion. His symptoms progressed and worsened in the last 1 week. Patient's cough became productive with yellowish sputum. Also has been having wheezing which is not relieved with home inhaler. Patient developed a fever of 102 degrees F on the day of presentation and decided to come to the ER. No chest pain, palpitations, abdominal pain, changes in urinary or bowel habits. Patient admits to drinking 6 beers a day and his last drink was 18:00 on 12/10. No history of alcohol withdrawal as per the patient In the emergency department, patient requiring 2 L supplemental oxygen. Imaging with left-sided pneumonia. Also found to be septic with tachycardia and leukocytosis. [facility] Medical History Personal history of nicotine dependence COPD (chronic obstructive pulmonary disease) Benign paroxysmal positional vertigo Tubular adenoma Lupus Pancreatic insufficiency Tubulovillous adenoma GERD (gastroesophageal reflux disease) HTN (hypertension) Family History Father HTN (hypertension) Mother Cancer Sister Cancer Surgical History Hx of tonsillectomy History of vasectomy History of colonoscopy History of left inguinal hernia repair History of esophagogastroduodenoscopy (EGD) Social History Household Members: Spouse Housing: House Do you presently have visiting nurse or other home services: No Alcohol intake: current Alcohol intake frequency: 3 or more drinks per day Alcohol type: beer Patient Tobacco Use Status: Former Tobacco user Smoked in Last 30 Days: No Use of substances other than those prescribed or required for medical reasons: No Advance Directives: No Advance Directives Information Provided: Yes Do you have a plan to hurt others: No Plan service: No Meds Allergies Allergy/AdvReac Type Severity Reaction Status Date / Time ibuprofen Allergy Mild tongue Verified 12/11/24 03:06 swelling Active Medications: Current Medications Azithromycin 500 mg/ Sodium (Chloride) 250 mls @ 125 mls/hr IV ONCE ONE Stop: 12/11/24 06:18 Last Admin: 12/11/24 04:43 Dose: 125 mls/hr Home Medications ?Medication ?Instructions ?Recorded ?Confirmed ?Last Taken ?Type amlodipine 5 mg tablet 5 mg PO BEDTIME 08/26/21 07/11/24 03/13/23 History losartan 100 mg tablet 100 mg PO DAILY 08/26/21 07/11/24 03/13/23 History hydroxychloroquine 200 mg tablet 200 mg PO BID 03/14/23 07/11/24 03/13/23 History multivitamin 1 tab PO DAILY 03/21/23 07/11/24 Unknown History atenolol 50 mg tablet 50 mg PO DAILY 02/19/24 07/11/24 Unknown History aspirin 650 mg tablet,extended 500 mg PO 08/19/24 Unknown History release atenolol 25 mg tablet 50 mg PO DAILY@1300 08/19/24 Unknown History Physical Exam 2 Vital Signs and Narrative: Vital Signs: Last Vital Signs Temp 99.4 F 12/11/24 04:57 Pulse 75 12/11/24 05:25 Resp 18 12/11/24 05:25 BP 117/71 12/11/24 04:57 Pulse Ox 94 12/11/24 04:57 O2 Del Method Nasal Cannula 12/11/24 04:57 O2 Flow Rate 2 12/11/24 04:57 BMI result Body Mass Index 26.6 Results Labs 12/11/24 03:46 12/11/24 03:46 Labs: Laboratory Results - last 24 hr 12/11/24 12/11/24 03:46 04:29 MCV 91.4 MCH 33.8 H MCHC 37.0 H RDW 12.0 Plt Count 223 MPV 8.1 L Immature Gran % (Auto) 0.4 Neut % (Auto) 85.2 H Lymph % (Auto) 5.8 L [place] % (Auto) 7.7 Eos % (Auto) 0.3 Baso % (Auto) 0.6 Lymph # (Auto) 0.8 L [place] # (Auto) 1.1 Eos # (Auto) 0.0 Baso # (Auto) 0.1 Abs Immat Gran (auto) 0.06 H Absolute Neuts (auto) 12.0 H Absolute Nucleated RBC 0.000 Nucleated RBC % (auto) 0.0 Anion Gap 14 Estim Creat Clear Calc 85.6 Estimated GFR > 60 Random Glucose 91 Lactic Acid 0.9 Calcium 9.4 C-Reactive Protein 2.37 H Influenza Type A (PCR) NEGATIVE Influenza Type B (PCR) NEGATIVE RSV RNA Qual (PCR) NEGATIVE SARS-CoV-2 RNA (RT-PCR) NEGATIVE Assessment and Plan (1) Hypoxia: Status: Acute (2) Pneumonia involving left lung: Status: Acute (3) COPD exacerbation: Status: Acute Plan This is a 69-year-old male with pertinent history of hypertension, SLE, former tobacco use disorder, COPD not on home oxygen, gastroesophageal reflux disease, alcohol use disorder who presents to the emergency department for evaluation of fever and dyspnea. #. Acute hypoxemic respiratory failure and sepsis due to left-sided pneumonia leading to COPD exacerbation: Will admit patient with supplemental oxygen. Initiating IV ceftriaxone and azithromycin. Also initiating systemic steroids. Scheduled and p.r.n. DuoNebs. Continue home inhaler. #. Hypertension: Continue home antihypertensives #. Gastroesophageal reflux disease: On PPI #. SLE: Continue home prescription medications once med rec is complete #. Alcohol use disorder: Initiating thiamine. Monitor CIWA Med rec pending DVT prophylaxis: Lovenox Full code Admit as inpatient and will require two night minimum hospital stay for supplemental oxygen, IV antibiotics (as above), which is not possible in a lesser acute setting. Quality Stroke Does the patient have a stroke diagnosis?: No VTE Prior VTE?: No VTE Risk Level:: Medical - moderate - high VTE Device Contraindication: Treatment Not Indicated VTE Drug Contraindication: N/A - Med Ordered
[2024-12-11] MEDS: Enoxaparin Sodium 40 MG/0.4 ML SYRINGE SUBCUT (06:35)
[2024-12-11] MEDS: predniSONE 20 MG TABLET 40 MG PO (06:35)
[2024-12-11] MEDS: Lactated Ringers 1,000 ML 999 ML IV (06:39)
[2024-12-11] MEDS: 0.9 % Sodium Chloride Flush 3 ML SYRINGE IVFLUSH ×3 (07:33→19:40)
[2024-12-11] MEDS: Thiamine HCL 100 MG TABLET PO (07:33)
--- NOTE | 2024-12-11 07:46 | PC.NURSE ---
Resumed care of patient at 0700, pt currently sitting up on edge of bed, pt requesting to walk to BR, O2 stable mid 90s prior to walking, post BR pt O2 94-96 on RA/ Pt denies any SOB at this time. Pt currently eating breakfast, offers no complaints of pain, SOB/CP. Call acosta within reach, awaiting bed assignment at this time.
--- NOTE | 2024-12-11 08:20 | PHA.MEDREC ---
Pharmacy Consult ? Medication Reconciliation Pharmacy has completed the medication reconciliation. Spoke with patient to confirm medications. Pt had a list he take bisacodyl and aspirin prn.
[2024-12-11] MEDS: atenoloL 50 MG TABLET PO (09:26)
[2024-12-11] MEDS: Multivitamin TABLET 1 TAB PO (09:27)
[2024-12-11] MEDS: Hydroxychloroquine Sulfate 200 MG TABLET PO ×2 (09:27→19:40)
--- NOTE | 2024-12-11 09:30 | MHC.CM.PN ---
CM met with Patient at bedside, in the ED, and addressed IMM with him, providing Patient with the original an a copy will be placed on the chart. Patient lives in a house with his /HCP/Nay and he is functionally independent. Home/self care is Patient's goal and CM has initiated and will follow for dc planning. PCP is DR. Ted Pearl and will transport to home at dc.
--- NOTE | 2024-12-11 10:26 | PM.EVENT ---
Event Note Date of Service: 12/11/24 Event Note: Looks better, feels better continue Nebs, Steroids Continue IV antibiotics Pending cultures monitor on CIWA Time Spent With Patient Time: Total time managing care of this patient today ____ minutes.
[2024-12-11] MEDS: Omeprazole 20 MG CAPSULE.DR PO (15:54)
[2024-12-11] MEDS: amLODIPine Besylate 5 MG TABLET PO (19:40)
[2024-12-12 03:49] VITALS: BP 141/75; PULSE 71; RESP 18; TEMP 36.7; O2SAT 94
[2024-12-12] MEDS: Enoxaparin Sodium 40 MG/0.4 ML SYRINGE SUBCUT (05:02)
[2024-12-12] MEDS: cefTRIAXone sodium 1 GM VIAL IVPUSH (05:03)
[2024-12-12] MEDS: Azithromycin 500 MG in 0.9 % Sodium Chloride 250 ML 125 MG IV (05:11)
[2024-12-12 06:13] LABS: MANUAL DIFF FLAG NO
[2024-12-12 06:23] LABS: Basophils Absolute Auto 0.1 X10*3/uL (0.0-0.2); Basophils Percent Auto 0.6 % (0-2); Eosinophils Percent Auto 0.2 % (0-4); Hemoglobin 13.2 g/dl (14.0-18.0); Imm Gran Abs Auto 0.05 X10*3/uL (0.00-0.03); Imm Gran Pct Auto 0.4 % (0.0-0.4); Lymphocytes Absolute Auto 1.7 X10*3/uL (1.2-4.9); Lymphocytes Percent Auto 13.8 % (20-40); Mean Corpuscular HGB Conc 34.7 g/dl (31.0-36.0); Mean Corpuscular Hemoglobin 33.6 pg (27.0-33.0); Mean Corpuscular Volume 96.7 fL (80.0-98.0); Mean Platelet Volume 8.9 fL (9.4-12.4); Monocytes Absolute Auto 0.8 X10*3/uL (0.1-1.2); Monocytes Percent Auto 6.8 % (2-11); Neutrophils Absolute Auto 9.6 x10*3/uL (2.0-8.3); Neutrophils Percent Auto 78.2 % (45-73); Platelet Count 256 X10*3/uL (160-400); Red Blood Count 3.93 X10*6/uL (4.60-5.80); Red Cell Distribution Width 12.4 % (11.0-16.0); White Blood Count 12.3 X10*3/uL (4.8-10.8)
[2024-12-12 06:27] LABS: Anion Gap 14 (12-20); Blood Urea Nitrogen 15 mg/dL (9-16); Calcium 9.9 mg/dL (8.4-10.2); Carbon Dioxide 26 mmol/L (22-29); Chloride 103 mmol/L (96-108); Creatinine Clr Calc Pharmacy 82.3; Estimated Glomerular Filt Rate > 60; Glucose Random 95 mg/dL (60-115); Potassium 3.9 mmol/L (3.3-5.1); Sodium 139 mmol/L (135-145)
[2024-12-12 07:15] VITALS: BP 128/80; PULSE 64; RESP 16; TEMP 36.9; O2SAT 95
[2024-12-12] MEDS: Thiamine HCL 100 MG TABLET PO (07:38)
[2024-12-12] MEDS: Hydroxychloroquine Sulfate 200 MG TABLET PO (07:38)
[2024-12-12] MEDS: atenoloL 50 MG TABLET PO (07:38)
[2024-12-12] MEDS: 0.9 % Sodium Chloride Flush 3 ML SYRINGE IVFLUSH (07:39)
[2024-12-12] MEDS: Multivitamin TABLET 1 TAB PO (07:39)
[2024-12-12] MEDS: predniSONE 20 MG TABLET 40 MG PO (07:39)
[2024-12-12 07:51] VITALS: PULSE 69; RESP 16; O2SAT 99
[2024-12-12] MEDS: Albuterol/Iprat 2.5/0.5MG 3 ML AMPUL.NEB INHALE ×2 (07:51→11:46)
--- NOTE | 2024-12-12 08:34 | HO.ADDICT_ITS ---
History of Present Illness Date of Service: 12/12/2024 Chief Complaint: dyspnea, fever Reason for Consult: +AUDIT C screen Sources of Information: patient interviewed and chart reviewed HPI Narrative: Patient is a 69 year old medically admitted with CHF exacerbation. Consult requested as patient screened in via AUDIT C screening tool for risky drinking behaviors. Patient seen in room 384. He is awake, alert, pleasant and engaged in interview. He reports drinking approx 6 beers daily. He does not feel that alcohol has impacted his health or any other aspect of his life in a negative way. He denies any history of withdrawals or even concern that alcohol intake may be harmful Discussed benefits of vitamins and minerals in inidviduals who consume alcohol frequently, including thiamine and how this is often depleted in those who drink often Denies any issues with sleep, appetite, relationship, etc. CIWA scores 0 since admission AUDIT-C Brief Intervention This video games storywriter met with patient to discuss current alcohol use and concerns related to increased risk of alcohol related problems. Discussed how alcohol use has impacted health, including negative impact on mental health and overall physical wellbeing. Discussed risk reduction strategies including drinking below the recommended limit. Medical Evaluation Reviewed: Yes Review of Systems Constitutional: Reports as per HPI and Reports no additional constitutional complaints Diagnostics Vital Signs (24Hr): Vital Signs - 24 hr 12/11/24 09:22 12/11/24 09:26 12/11/24 11:37 Temperature Pulse Rate 79 79 79 Respiratory Rate 18 16 Blood Pressure 118/77 118/77 Pulse Oximetry 97 Oxygen Delivery Method Room Air 12/11/24 14:45 12/11/24 15:34 12/11/24 15:55 Temperature 96.8 F 97.9 F Pulse Rate 71 69 69 Respiratory Rate 16 18 18 Blood Pressure 144/80 H 123/93 H Pulse Oximetry 97 94 Oxygen Delivery Method Room Air Room Air 12/11/24 19:27 12/11/24 20:40 12/12/24 03:49 Temperature 97.5 F 98.1 F Pulse Rate 73 70 71 Respiratory Rate 18 16 18 Blood Pressure 121/65 141/75 H Pulse Oximetry 94 94 Oxygen Delivery Method Room Air Room Air 12/12/24 07:15 12/12/24 07:51 Temperature 98.5 F Pulse Rate 64 69 Respiratory Rate 16 16 Blood Pressure 128/80 Pulse Oximetry 95 Oxygen Delivery Method Room Air BMI result Body Mass Index 26.6 Labs 12/12/24 05:19 12/12/24 05:19 Labs: Laboratory Results - last 48 hr 12/11/24 12/11/24 12/12/24 03:46 04:29 05:19 WBC 14.0 H 12.3 H RBC 3.96 L 3.93 L Hgb 13.4 L 13.2 L Hct 36.2 L 38.0 L MCV 91.4 96.7 D MCH 33.8 H 33.6 H MCHC 37.0 H 34.7 RDW 12.0 12.4 Plt Count 223 256 MPV 8.1 L 8.9 L Immature Gran % (Auto) 0.4 0.4 Neut % (Auto) 85.2 H 78.2 H Lymph % (Auto) 5.8 L 13.8 L [place] % (Auto) 7.7 6.8 Eos % (Auto) 0.3 0.2 Baso % (Auto) 0.6 0.6 Lymph # (Auto) 0.8 L 1.7 [place] # (Auto) 1.1 0.8 Eos # (Auto) 0.0 0.0 Baso # (Auto) 0.1 0.1 Abs Immat Gran (auto) 0.06 H 0.05 H Absolute Neuts (auto) 12.0 H 9.6 H Absolute Nucleated RBC 0.000 0.000 Nucleated RBC % (auto) 0.0 0.0 Sodium 135 139 Potassium 3.8 3.9 Chloride 102 103 Carbon Dioxide 23 26 Anion Gap 14 14 BUN 9 15 Creatinine 0.75 0.78 Estim Creat Clear Calc 85.6 82.3 Estimated GFR > 60 > 60 Random Glucose 91 95 Lactic Acid 0.9 Calcium 9.4 9.9 C-Reactive Protein 2.37 H Influenza Type A (PCR) NEGATIVE Influenza Type B (PCR) NEGATIVE RSV RNA Qual (PCR) NEGATIVE SARS-CoV-2 RNA (RT-PCR) NEGATIVE Mental Status Exam Mental Status Exam Patient Appearance: Well Grooomed and Appropriate Patient Orientation: Person, Place, Time and Situation Level of Consciousness: Awake, Appropriate and Alert Patient Behavior: Appropriate and Talkative Mood Description: Calm Affect Description: Calm Speech Pattern: Clear Hallucinations: None Thought Process: Intact Thought Content: positive for Intact Judgement: Good Medications Medications Current Medications Acetaminophen (Acetaminophen 325 Mg Tablet) 650 mg PO Q6H PRN PRN Reason: Pain, Mild 1-3,fever,headache Albuterol/Ipratropium (Albuterol/Iprat 2.5/0.5mg 3 Ml Ampul.Neb) 3 ml INHALE Q4H PRN PRN Reason: Wheezing Albuterol/Ipratropium (Albuterol/Iprat 2.5/0.5mg 3 Ml Ampul.Neb) 3 ml INHALE RQ4H WHILE AWAKE [facility] Last Admin: 12/12/24 07:51 Dose: 3 ml Amlodipine Besylate (Amlodipine Besylate 5 Mg Tablet) 5 mg PO BEDTIME [facility]; Protocol Last Admin: 12/11/24 19:40 Dose: 5 mg Atenolol (Atenolol 50 Mg Tablet) 50 mg PO DAILY [facility]; Protocol Last Admin: 12/12/24 07:38 Dose: 50 mg Bisacodyl (Bisacodyl 5 Mg Tablet.) 10 mg PO BEDTIME PRN PRN Reason: Constipation Calcium Carbonate (Calcium Carbonate 750 Mg Tab.Chew) 750 mg PO Q4H PRN PRN Reason: Heartburn Ceftriaxone Sodium (Ceftriaxone Sodium 1 Gm Vial) 1 gm IVPUSH Q24H [facility] Last Admin: 12/12/24 05:03 Dose: 1 gm Enoxaparin Sodium (Enoxaparin Sodium 40 Mg/0.4 Ml Syringe) 40 mg SUBCUT Q24H [facility] Last Admin: 12/12/24 05:02 Dose: 40 mg Hydroxychloroquine Sulfate (Hydroxychloroquine Sulfate 200 Mg Tablet) 200 mg PO BID [facility] Last Admin: 12/12/24 07:38 Dose: 200 mg Azithromycin 500 mg/ Sodium (Chloride) 250 mls @ 125 mls/hr IV Q24H [facility] Last Admin: 12/12/24 05:11 Dose: 125 mls/hr Magnesium Hydroxide (Milk Of Magnesia 30 Ml Oral.Susp) 30 ml PO DAILY PRN PRN Reason: Constipation Melatonin (Melatonin 3 Mg Tablet) 6 mg PO BEDTIME PRN PRN Reason: Insomnia Multivitamins/Vitamin C (Multivitamin Tablet) 1 tab PO DAILY [facility] Last Admin: 12/12/24 07:39 Dose: 1 tab Omeprazole (Omeprazole 20 Mg Capsule.Dr) 20 mg PO DAILY@1630 [facility] Last Admin: 12/11/24 15:54 Dose: 20 mg Ondansetron HCl (Ondansetron Hcl 4 Mg/2 Ml Vial) 4 mg IVPUSH Q8H PRN PRN Reason: Nausea and Vomiting Prednisone (Prednisone 20 Mg Tablet) 40 mg PO DAILY [facility] Last Admin: 12/12/24 07:39 Dose: 40 mg Sodium Chloride (0.9 % Sodium Chloride Flush 3 Ml Syringe) 3 ml IVFLUSH QSHIFT [facility] Last Admin: 12/12/24 07:39 Dose: 3 ml Thiamine HCl (Thiamine Hcl 100 Mg Tablet) 100 mg PO DAILY [facility] Last Admin: 12/12/24 07:38 Dose: 100 mg Allergies Allergies Allergy/AdvReac Type Severity Reaction Status Date / Time ibuprofen Allergy Mild tongue Verified 12/11/24 03:06 swelling Assessment & Plan Assessment & Plan (1) COPD exacerbation: Status: Acute Code(s): J44.1 - Chronic obstructive pulmonary disease with (acute) exacerbation Assessment and Plan: * encouraged multi vit with Vitamin B1 * no concern for use disorder at this time * reviewed signs that may be concerning for alcohol use, such as not participating in activities he normally enjoys, or increase in amount, etc. * no followup indicated at this time Total time managing care of this patient today _30___ minutes. PMFSH Past Medical History Medical History Personal history of nicotine dependence COPD (chronic obstructive pulmonary disease) Benign paroxysmal positional vertigo Tubular adenoma Lupus Pancreatic insufficiency Tubulovillous adenoma GERD (gastroesophageal reflux disease) HTN (hypertension) Family History Family History Father HTN (hypertension) Mother Cancer Sister Cancer Surgical History Surgical History Hx of tonsillectomy History of vasectomy History of colonoscopy History of left inguinal hernia repair History of esophagogastroduodenoscopy (EGD) Social History Social History Household Members: Spouse Housing: House Do you presently have visiting nurse or other home services: No Alcohol intake: current Alcohol intake frequency: 3 or more drinks per day Alcohol type: beer Patient Tobacco Use Status: Former Tobacco user service: No
--- NOTE | 2024-12-12 10:29 | MHC.CM.PN ---
Patient medically cleared for dc home self care. to transport. RN aware.
[2024-12-12 11:47] VITALS: PULSE 68; RESP 16; O2SAT 97
[2024-12-12 11:54] VITALS: BP 127/70; PULSE 62; RESP 16; TEMP 36.4; O2SAT 98
--- NOTE | 2024-12-12 13:59 | PM.DS ---
DS: Providers Provider Date of Service: 12/12/24 Date of admission: 12/11/24 05:34 Date of discharge: 12/12/24 Primary care physician: Ted Pearl MD Consults: 12/11/24 12:15 Addiction Medicine Provider Routine Consulting Provider: Addiction Covering Reason for consultation: daily 6 beers or more DS: Diagnosis Discharge Diagnosis (1) COPD exacerbation: Status: Acute DS: Summary Hospital Course Hospital Course: 69-year-old male with pertinent history of hypertension, SLE, former tobacco use disorder, COPD not on home oxygen, gastroesophageal reflux disease, alcohol use disorder who presents to the emergency department for evaluation of fever and dyspnea. Patient states his symptoms started 3-4 weeks prior to presentation. He has been having ongoing dyspnea which is worse with exertion. His symptoms progressed and worsened in the last 1 week. Patient's cough became productive with yellowish sputum. Also has been having wheezing which is not relieved with home inhaler. Patient developed a fever of 102 degrees F on the day of presentation and decided to come to the ER. No chest pain, palpitations, abdominal pain, changes in urinary or bowel habits. Patient admits to drinking 6 beers a day and his last drink was 18:00 on 12/10. No history of alcohol withdrawal as per the patient In the emergency department, patient requiring 2 L supplemental oxygen. Imaging with left-sided pneumonia. Also found to be septic with tachycardia and leukocytosis. Hospital Course patient admitted to general medical floor and overnight was able to wean off O2. This a.m. ambulatory ad duc in the hallway stating he feels back to baseline. He said his responses has been this rapid in the past. At this point his exam is benign and he is medically acceptable to be discharged home and complete a course of Ceftin and azithromycin along with a prednisone taper. He will follow up with his PCP next available Time Attestation Discharge Coordination Time (in mins): 35 Quality: Safe Use of Opioids Does Pt have an Active Cancer Diagnosis on the Problem List?: No Quality: Stroke Does the patient have a stroke diagnosis?: No Physical Exam Vital Signs: Vital Signs: Last Vital Signs Temp 97.6 F 12/12/24 11:54 Pulse 62 12/12/24 11:54 Resp 16 12/12/24 11:54 BP 127/70 12/12/24 11:54 Pulse Ox 98 12/12/24 11:54 O2 Del Method Room Air 12/12/24 11:54 O2 Flow Rate 2 12/11/24 04:57 BMI result Body Mass Index 26.6 Const: Other: awake a Resp: Other: clear but diminished all rizo with no wheezes rales or rhonchi Cardio: Other: no S4; positive S1-S2; no S3 murmurs rubs or gallops GI: Other: soft nontender nondistended normoactive bowel sounds Extrem: Other: no edema bilaterally DS: Data Data Completed and Pending Labs on day of discharge: Laboratory Results - last 24 hr 12/12/24 05:19 WBC 12.3 H RBC 3.93 L Hgb 13.2 L Hct 38.0 L MCV 96.7 D MCH 33.6 H MCHC 34.7 RDW 12.4 Plt Count 256 MPV 8.9 L Immature Gran % (Auto) 0.4 Neut % (Auto) 78.2 H Lymph % (Auto) 13.8 L [place] % (Auto) 6.8 Eos % (Auto) 0.2 Baso % (Auto) 0.6 Lymph # (Auto) 1.7 [place] # (Auto) 0.8 Eos # (Auto) 0.0 Baso # (Auto) 0.1 Abs Immat Gran (auto) 0.05 H Absolute Neuts (auto) 9.6 H Absolute Nucleated RBC 0.000 Nucleated RBC % (auto) 0.0 Sodium 139 Potassium 3.9 Chloride 103 Carbon Dioxide 26 Anion Gap 14 BUN 15 Creatinine 0.78 Estim Creat Clear Calc 82.3 Estimated GFR > 60 Random Glucose 95 Calcium 9.9 Preliminary micro results at discharge 12/11/24 04:40 Blood Culture - Preliminary Blood - Venous No growth after 24 hours. 12/11/24 04:29 Blood Culture - Preliminary Blood - Venous No growth after 24 hours. Discharge Plan Discharge Anticipated Discharge Date/Time: 12/12/24 13:52 Patient Disposition: Home, Self-Care Discharge Diagnosis: pneumonia left base Referrals: Ted Pearl MD [Primary Care Provider] - 1 Week Discharge Medications: New cefuroxime axetil 500 mg tablet 500 mg PO BID 10 Days Qty: 20 0RF prednisone 10 mg tablet See Rx Instructions .Route .COMPLEX Qty: 45 0RF Rx Instructions: 10 mg orally; 5 tabs p.o. daily x3 days; 4 tabs p.o. daily x3 days; 3 tabs daily x3 days; 2 tabs daily x3 days; 1 tab daily x3 days azithromycin 500 mg tablet See Rx Instructions .ROUTE .COMPLEX Qty: 3 0RF Rx Instructions: For 500 mg dose pack: take 500 mg once daily for 3 days Continued (DME) maeve [facility] [place] See Rx Instructions .MEDSUPPLY Qty: 1 0RF Rx Instructions: Folding Front wheeled maeve hydroxychloroquine 200 mg tablet 200 mg PO BID esomeprazole magnesium 40 mg capsule,delayed release(DR/EC) 40 mg PO DAILY@1630 bisacodyl [Dulcolax (bisacodyl)] 5 mg tablet,delayed release (DR/EC) 10 mg PO BEDTIME PRN (Reason: Constipation) aspirin 325 mg Tablet 650 mg PO Q6H PRN (Reason: Pain) acetaminophen [Tylenol] 325 mg Tablet 650 mg PO Q4H PRN (Reason: Pain) Probiotic 3 billion cell Capsule 3,000 mmu cells PO DAILY Rx Instructions: administer with a meal amlodipine 5 mg tablet 5 mg PO BEDTIME losartan 100 mg tablet 100 mg PO DAILY multivitamin Tablet 1 tab PO DAILY atenolol 50 mg tablet 50 mg PO DAILY Discharge Orders: Discharge Order (Routine); Ordered 12/12/24 Ordered By: Keith Weaver Diet: Advance to usual diet Activity on Discharge: As tolerated Stand Alone Forms: Patient Portal Discharge page Print Language: [place] Care Plan Goals: resume all medicines as taken prior to hospitalization. Health Concerns: Ceftin 500 mg twice daily for 10 days; azithromycin 500 mg daily for 3 days and a prednisone taper has been sent. Complete these as prescribed Plan of Treatment: follow up with PCP next available Assessment: see discharge summary
== END 2024-12-12 15:41 | disposition home or self-care (01) | DRG 871 ==
LOC: HO.ED 05:47 → HO.EDOVER 05:53 → HO.S3 12:06
PROVIDERS: Admitting Provider Student in an Organized Health Care Education/Training Program; Emergency Provider Emergency Medicine; PCP Internal Medicine; Visit Provider Hospitalist
DX: A41.9 Sepsis, unspecified organism (principal); J18.9 Pneumonia, unspecified organism; J96.01 Acute respiratory failure with hypoxia; J44.0 Chronic obstructive pulmonary disease with (acute) lower respiratory infection; J44.1 Chronic obstructive pulmonary disease with (acute) exacerbation; I10 Essential (primary) hypertension; K21.9 Gastro-esophageal reflux disease without esophagitis; M32.9 Systemic lupus erythematosus, unspecified; Z20.822 Contact with and (suspected) exposure to COVID-19; Z87.891 Personal history of nicotine dependence; Z79.82 Long term (current) use of aspirin; Z79.899 Other long term (current) drug therapy
CPT/HCPCS: 0241U; 36415; 71045; 71046; 80048; 83605; 85025; 86140; 87040; 94640; 99285; J0456; J0696; J1650; J7120

== ENCOUNTER → 2024-12-11 03:45 | Outpatient (BNV) | payer MEDICARE, SELFPAY | PROVIDERS: Emergency Provider Emergency Medicine; PCP Internal Medicine; Visit Provider Radiology Diagnostic Radiology | DX: R05.9 Cough, unspecified (principal); R50.9 Fever, unspecified | CPT/HCPCS: 71045; 71046 ==

== ENCOUNTER → 2024-12-11 05:34 | Outpatient (BNV) | payer MEDICARE, SELFPAY | PROVIDERS: Admitting Provider Student in an Organized Health Care Education/Training Program; Emergency Provider Emergency Medicine; PCP Internal Medicine; Visit Provider Nurse Practitioner Psychiatric/Mental Health | DX: F10.90 Alcohol use, unspecified, uncomplicated (principal) | CPT/HCPCS: 99231 ==

== ENCOUNTER → 2024-12-11 05:34 | Outpatient (BNV) | payer MEDICARE, SELFPAY | PROVIDERS: Admitting Provider Student in an Organized Health Care Education/Training Program; Emergency Provider Emergency Medicine; PCP Internal Medicine; Visit Provider Student in an Organized Health Care Education/Training Program | DX: J44.1 Chronic obstructive pulmonary disease with (acute) exacerbation (principal) | CPT/HCPCS: 99222; 99239; 99499 ==

== ENCOUNTER 2025-01-02 03:34 | Inpatient (IN) | payer MEDICARE, SELFPAY ==
[2025-01-02] VITALS (17 sets, daily range): BP systolic 95–160; BP diastolic 55–89; PULSE 79–120; RESP 18–27; TEMP 36.3–38.1; O2SAT 87–98; BMI 26.0; BMI 26.6
--- NOTE | ~2025-01-02 | CT_ITS ---
EXAMINATION: CT ANGIOGRAM CHEST CLINICAL INFORMATION: Elevated right heart pressures, shortness of breath, pneumonia, rule out PE. COMPARISON: CT chest without contrast prior day. CT angiogram chest 11/06/2022. TECHNIQUE: Multiple axial images were obtained through the chest after the administration of 50 mL of Omnipaque 350 intravenous contrast. Extensive vascular post-processing including two-dimensional and three-dimensional reformatted images were created and reviewed on an independent workstation. This CT examination was performed using dose optimization techniques as appropriate, variously including the following: *Automated exposure control *Adjustment of mA and/or kV according to patient size (this includes techniques or standardized protocols for targeted exams where dose is matched to indication/reason for exam; i.e. extremities or head) *Use of iterative reconstruction technique FINDINGS: VASCULAR: There is diagnostic opacification of the main pulmonary artery system. There is no evidence of pulmonary embolus. The main pulmonary artery is mildly enlarged suggesting pulmonary arterial hypertension. The aorta is normal in caliber and mildly tortuous with mild atheromatous calcification. There is no acute aortic syndrome. There is mild cardiac enlargement. There is no pericardial effusion. Calcification of the aortic annulus present. LUNGS: Similar dense consolidation in the right middle lobe with air bronchograms. Patchy consolidation centrilobular nodules in the lingular segment, and left lower lobe abutting a large Bochdalek hernia. Improving patchy groundglass centrilobular nodularity in the left upper lobe, superior segment left lower lobe, anterior right upper lobe, and superior segment right lower lobe, of same etiology. No effusions or pneumothorax. Assessment for pulmonary nodules is limited in this context due to the extent of underlying acute lung disease. MEDIASTINUM: Partially imaged thyroid is normal. Saber-sheath trachea. Central airways patent. No adenopathy. No mass. Esophagus is unremarkable. CORONARY ARTERY CALCIFICATION: Mild three-vessel coronary calcification. PLEURA: There is no pleural effusion. No pleural mass or thickening. AXILLA/CHEST WALL: No masses or lymphadenopathy. UPPER ABDOMEN: There is a 2.8 cm posterior left renal cyst. There is a 3.1 cm right posterior renal cyst. Mild bilateral perirenal stranding, nonspecific. There are large second and third segment duodenal diverticula. Remainder of the imaged upper abdominal contents appear normal. OSSEOUS STRUCTURES: No suspicious lytic or blastic bone lesions. Degenerative changes throughout the spine with features of DISH. CT/CT angio chest PE protocol IMPRESSION: 1. No evidence of pulmonary embolus. No evidence of acute aortic syndrome. Enlarged main pulmonary artery suggesting increased pulmonary pressures. Mild cardiomegaly. 2. Multifocal pneumonitis with similar dense lobar consolidation right middle lobe. Persistent but mildly improving opacities in the bilateral upper lobes and lingula. 3. 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 4. There are no effusions. Electronically signed by: Shaw Boothe MD 01/03/2025 03:17 PM EDT
--- NOTE | ~2025-01-02 | CT_ITS ---
EXAMINATION: CT CHEST WITHOUT CONTRAST CLINICAL INFORMATION: Recurrent pneumonia. COMPARISON: 05/08/2023. TECHNIQUE: Multidetector volumetric CT imaging of the chest was done. Axial MIP volume rendering provided. Sagittal and coronal reformatted images were obtained. This CT examination was performed using dose optimization techniques as appropriate, variously including the following: *Automated exposure control *Adjustment of mA and/or kV according to patient size (this includes techniques or standardized protocols for targeted exams where dose is matched to indication/reason for exam; i.e. extremities or head) *Use of iterative reconstruction technique FINDINGS: LUNGS: Dense consolidation in the right lower lobe with air bronchograms. Patchy consolidation centrilobular nodules in the lingular segment, and left lower lobe abutting a large Bochdalek hernia. Patchy groundglass centrilobular nodularity in the left upper lobe, superior segment left lower lobe, anterior right upper lobe, and superior segment right lower lobe, of same etiology. No effusions or pneumothorax. Assessment for pulmonary nodules is limited in this context due to the extent of underlying acute lung disease. MEDIASTINUM: Partially imaged thyroid is normal. Saber-sheath trachea. Central airways patent. No adenopathy. No mass. Prominent main pulmonary artery, suggestive of increased pulmonary pressures. Aorta is uncoiled, but normal in caliber. Calcification of the aortic annulus. Mild aortic calcifications. Descending aorta is mildly tortuous. Heart size is normal. There is no pericardial effusion. CORONARY ARTERY CALCIFICATION: Mild three-vessel coronary calcification. PLEURA: There is no pleural effusion. No pleural mass or thickening. AXILLA/CHEST WALL: No masses or lymphadenopathy. UPPER ABDOMEN: There is a 2.8 cm posterior left renal cyst. There is a 3.1 cm right posterior renal cyst. Mild bilateral perirenal stranding, nonspecific. There are large second and third segment duodenal diverticula. Remainder of the imaged upper abdominal contents appear normal. OSSEOUS STRUCTURES: No suspicious lytic or blastic bone lesions. Degenerative changes throughout the spine with features of DISH. CT/CT chest wo IV con IMPRESSION: 1. Multifocal pneumonitis with most dense lobar consolidation in the right middle lobe with air bronchograms. There is also involvement of the superior segments lower lobes, upper lobes, and lingula. No pulmonary abscess identified. 2. There are no effusions. 3. 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 4. There is a prominent main pulmonary artery suggesting increased pulmonary pressures. 5. There are ancillary findings as discussed in the body of the report. Electronically signed by: Shaw Boothe MD 01/02/2025 03:14 PM EDT RP
--- NOTE | ~2025-01-02 | XR_ITS ---
CLINICAL HISTORY: SOB 1 view chest x-ray Comparison: CR - XR CHEST 2V - 12/11/24 04:59 EDT CR - XR CHEST 1V - 12/11/24 03:48 EDT Findings: Stable heart size. Similar elevation of the left hemidiaphragm. The consolidation seen within the left lung has nearly completely resolved however there is a new consolidation within the right lower lobe. Possible small left effusion versus chronic volume loss. No acute osseous findings. IMPRESSION: 1. Improved aeration in the left lung. New left lower lobe consolidation. This document has been electronically signed by: Aislinn Ascencio MD on 01/02/2025 06:43:12
--- NOTE | 2025-01-02 03:43 | ECG_ITS ---
Test Reason : SOB Blood Pressure : */* mmHG Vent. Rate : 111 BPM Atrial Rate : 111 BPM P-R Int : 140 ms QRS Dur : 78 ms QT Int : 296 ms P-R-T Axes : 17 4 218 degrees QTcB Int : 402 ms Sinus tachycardia with Premature supraventricular complexes Posterior infarct , age undetermined ST & T wave abnormality, consider lateral ischemia Abnormal ECG When compared with ECG of 14-Mar-2023 02:50, Premature supraventricular complexes are now Present Nonspecific T wave abnormality now evident in Inferior leads T wave inversion now evident in Anterolateral leads Referred By: Generic ED Physician Electronically Signed By: BASIL HUMPHREYS MD
[2025-01-02 04:02] LABS: Basophils Absolute Auto 0.1 X10*3/uL (0.0-0.2); Basophils Percent Auto 0.7 % (0-2); Eosinophils Absolute Auto 0.1 X10*3/uL (0.0-0.4); Eosinophils Percent Auto 0.6 % (0-4); Hematocrit 39.2 % (42.0-52.0); Hemoglobin 13.2 g/dl (14.0-18.0); Imm Gran Abs Auto 0.07 X10*3/uL (0.00-0.03); Imm Gran Pct Auto 0.6 % (0.0-0.4); Lymphocytes Absolute Auto 1.2 X10*3/uL (1.2-4.9); Lymphocytes Percent Auto 9.7 % (20-40); MANUAL DIFF FLAG NO; Mean Corpuscular HGB Conc 33.7 g/dl (31.0-36.0); Mean Corpuscular Hemoglobin 32.7 pg (27.0-33.0); Mean Platelet Volume 8.6 fL (9.4-12.4); Monocytes Absolute Auto 0.4 X10*3/uL (0.1-1.2); Monocytes Percent Auto 3.1 % (2-11); Neutrophils Absolute Auto 10.5 x10*3/uL (2.0-8.3); Neutrophils Percent Auto 85.3 % (45-73); Platelet Count 250 X10*3/uL (160-400); Red Blood Count 4.04 X10*6/uL (4.60-5.80); Red Cell Distribution Width 12.4 % (11.0-16.0); White Blood Count 12.3 X10*3/uL (4.8-10.8)
[2025-01-02 04:19] LABS: Anion Gap 15 (12-20); Blood Urea Nitrogen 11 mg/dL (9-16); Calcium 9.6 mg/dL (8.4-10.2); Carbon Dioxide 25 mmol/L (22-29); Chloride 105 mmol/L (96-108); Creatinine Clr Calc Pharmacy 83.4; Estimated Glomerular Filt Rate > 60; Glucose Random 132 mg/dL (60-115); Sodium 141 mmol/L (135-145)
[2025-01-02 04:20] LABS: Lactic Acid 1.8 mmol/L (0.5-2.0)
--- NOTE | 2025-01-02 04:20 | PC.NURSE ---
69 yo M presents to ED c/o +SOB, increased +SOB upon exertion, +productive cough, +fever/chills, took tylenol at home around 0230, recent dx with pneumonia, finished antibiotic tx, hx of COPD, patient self administered his inhaler [employer] with little to no effect, SpO2 88% on RA, placed on 2L of O2 (no O2 at baseline), A&Ox4, is at bedside, dispo pending
[2025-01-02 04:24] LABS: Troponin-I High Sensitivity 2.8 ng/L (<3.5-35.0)
[2025-01-02] MEDS: Piperacillin Sodium/Tazobactam 3.375 GM in 0.9 % Sodium Chloride 50 ML IV (04:37)
[2025-01-02] MEDS: vancomycin/NS 2,000 MG/500 ML PLAST..BAG 250 MG IV (04:38)
[2025-01-02] MEDS: 0.9 % Sodium Chloride 2,500 ML 999 ML IVCONT (04:40)
--- NOTE | 2025-01-02 04:46 | ED.FEVER ---
HPI - Fever General Chief Complaint: Fever Stated Complaint: difficulty breathing & Fever Time Seen by Provider: 01/02/25 04:15 Source: patient and family Mode of arrival: ambulatory Limitations: no limitations History of Present Illness ED Provider: Dr. Meredith Gray HPI Narrative: Patient comes to the emergency room complaining of shortness of breath. Patient states that it is much worse with exertion. Patient reports productive cough, fever, chills, took Tylenol at home. Despite antipyretics, patient's fever kept getting worse. Patient was recently discharged from the hospital, proximally 2 weeks ago for pneumonia. Patient states that he went home in over last week he has gradually been getting worse. On arrival to triage, oxygen saturation 87% on room air. Patient 2 L of oxygen. Related Data Home Medications ?Medication ?Instructions ?Recorded ?Confirmed amlodipine 5 mg tablet 5 mg PO BEDTIME 08/26/21 12/11/24 losartan 100 mg tablet 100 mg PO DAILY 08/26/21 12/11/24 hydroxychloroquine 200 mg tablet 200 mg PO BID 03/14/23 12/11/24 multivitamin 1 tab PO DAILY 03/21/23 12/11/24 atenolol 50 mg tablet 50 mg PO DAILY 02/19/24 12/11/24 acetaminophen 325 mg tablet 650 mg PO Q4H PRN Pain 12/11/24 12/11/24 (Tylenol) aspirin 325 mg tablet 650 mg PO Q6H PRN Pain 12/11/24 12/11/24 bisacodyl 5 mg tablet,delayed 10 mg PO BEDTIME PRN Constipation 12/11/24 12/11/24 release (Dulcolax (bisacodyl)) esomeprazole magnesium 40 mg 40 mg PO DAILY@1630 12/11/24 12/11/24 capsule,delayed release lactobacillus combination no.4 3 3,000 mmu cells PO DAILY 12/11/24 12/11/24 billion cell capsule (Probiotic) Previous Rx's ?Medication ?Instructions ?Recorded walker #1 ea 06/24/24 azithromycin 500 mg tablet See Rx Instructions PO .COMPLEX #3 12/12/24 tabs cefuroxime axetil 500 mg tablet 500 mg PO BID 10 days #20 tabs 12/12/24 prednisone 10 mg tablet See Rx Instructions .Route 12/12/24 .COMPLEX #45 tabs Allergies Allergy/AdvReac Type Severity Reaction Status Date / Time ibuprofen Allergy Mild tongue Verified 01/02/25 04:14 swelling Review of Systems Review of Systems: Constitutional : No Weight loss, complaining of fever and chills, No Night Sweats, No Fatigue, No Malaise ENT/Mouth : No Hearing loss, No Ear Pain, No Nasal Congestion, No Sinus Pain, No Hoarseness, No sore throat, No Rhinorrhea, No Swallowing Difficulty Eyes: No Eye Pain, No Swelling, No Redness, No Foreign Body, No Discharge, No Vision Changes Cardiovascular : No Chest Pain, denies palpitations or orthopnea Respiratory : Complaining of productive cough, dyspnea with exertion Gastrointestinal : No Nausea, No Vomiting, No Diarrhea, No Constipation, No abdominal Pain, No Hematochezia, No Melena Genitourinary : no irregular bleeding, No Dysuria, No Urinary Frequency, No Hematuria, No Urinary Incontinence, No Urgency, No Flank Pain, No Urinary Flow Changes, No Hesitancy Musculoskeletal : No joint pain, No Myalgias, No Joint Swelling Skin : No Skin Lesions, No rash Neuro : No Weakness, No Numbness, No Paresthesias, No Loss of Consciousness, No Dizziness, No Headache Psych : No Anxiety/Panic, No Depression, No SI/HI/AH/VH, No Social Issues, Heme/Lymph: No Bruising, No Bleeding,No Lymphadenopathy Endocrine : No Polyuria, No Polydipsia, No Temperature Intolerance [facility] Past Medical History Medical History Pneumonia involving left lung Personal history of nicotine dependence COPD (chronic obstructive pulmonary disease) Benign paroxysmal positional vertigo Tubular adenoma Lupus Pancreatic insufficiency Tubulovillous adenoma GERD (gastroesophageal reflux disease) HTN (hypertension) Surgical History Hx of tonsillectomy History of vasectomy History of colonoscopy History of left inguinal hernia repair History of esophagogastroduodenoscopy (EGD) Family History Family History Father HTN (hypertension) Mother Cancer Sister Cancer Social History Social History Household Members: Spouse Housing: House Do you presently have visiting nurse or other home services: No Alcohol intake: never Patient Tobacco Use Status: Former Tobacco user Smoked in Last 30 Days: No Use of substances other than those prescribed or required for medical reasons: No Advance Directives: Yes Advance Directives on File: Yes Advance Directives Date on File: 03/16/23 Do you have a plan to hurt others: No Plan service: No Physical Exam Vital Signs: Vital Signs: Last Vital Signs Temp 98.6 F 01/02/25 05:56 Pulse 87 01/02/25 05:56 Resp 18 01/02/25 05:56 BP 112/55 L 01/02/25 05:56 Pulse Ox 93 01/02/25 05:56 O2 Del Method Nasal Cannula 01/02/25 05:56 O2 Flow Rate 2 01/02/25 05:56 Oxygen Flow Rate 2 01/02/25 04:07 BMI result Body Mass Index 26.6 Const: Other: Appearance: Alert. Oriented X3. No acute distress. Eyes: Pupils equal, round and reactive to light. ENT: Pharynx normal. Neck: Normal inspection. Neck supple. No lymph nodes noted. No crepitus CVS: Normal heart rate and rhythm. Pulses normal. Normal S1 and S2 Respiratory: No respiratory distress. No wheezing, bilateral rales, no crackle Abdomen: Soft and nontender. No rigidity. No distention. Skin: Skin warm and dry. Normal skin color. Normal skin turgor. Extremities: No lower extremity edema. No Lacerations. No Rash Neuro: Oriented X 3. No motor deficit. No sensory deficit. Moving all extremities. No slurred speech. CN 2 through 12 grossly intact Psych: calm, cooperative, normal affect Course Course Course Narrative: Patient came in complaining of worsening cough, has recent history of pneumonia. Patient reports a high fever at home of 102 0.0 F. Here in the emergency room it is 99. However, patient feels much warmer than that. Patient declined rectal temperature Patient is empirically being treated with IV fluids and antibiotics. Since patient was discharged from the hospital 2 weeks ago and has worsening symptoms, this time we will treat with Zosyn and vancomycin All of patient's labs pending. Medications Administered Discontinued Medications Generic Name Dose Route Start Last Admin Trade Name Freq PRN Reason Stop Dose Admin Sodium Chloride 2,500 mls @ 999 mls/hr 01/02/25 04:20 01/02/25 04:40 Ns IVCONT 01/02/25 06:50 999 mls/hr .[id number] ONE Administration Vancomycin HCl 2,000 mg in 500 mls @ 250 mls/hr 01/02/25 04:20 01/02/25 04:38 Vancomycin/Ns IV 01/02/25 06:19 250 mls/hr ONCE ONE Administration Piperacillin Sod/Tazobactam 50 mls @ 100 mls/hr 01/02/25 04:21 01/02/25 05:07 Sod 3.375 gm/ Sodium Chloride IV 01/02/25 04:50 Infused ONCE ONE Infusion Medical Decision Making Medical Decision Making [facility] Narrative: My interpretation of labs: Patient's white blood cell count 12.3, no significant abnormality in patient's chemistry, normal troponin, BNP in the 170s, at baseline, serology negative for influenza COVID and RSV GI: Sinus tachycardia, heart rate 111, ST segment the patient's in V2 through V5, seen heme to previous EKGs. The ST segment changes look more pronounced than in previous EKGs. However, troponin is negative and patient has no chest pain at all. Troponin and BNP at baseline The x-ray: Worsening left lower lobe pneumonia and new right middle lobe pneumonia As mentioned above, patient has a empirically being treated with IV fluids in antibiotics. Lactic acid 1.8, blood pressure 120/62, heart rate 98, no episodes of hypotension, sepsis is not suspected at this time 05:30 06:53: Chest x-ray shows improved aeration in the left lung, new right lower lobe consolidation Patient remained stable I discussed the patient with Dr. Liang from the Medicine team, patient being admitted Differential Diagnosis Differential Diagnoses: The differential diagnosis associated with the presentation includes (Pneumonia, bronchitis, influenza, RSV, COVID) Admission/Observation Consideration of admission/observation: Escalation of care including admission/observation considered Consult Healthcare Provider Management of the patient was discussed with: Hospitalist Lab Data [facility] Lab Attestation statement: I reviewed the patient's lab results. 01/02/25 03:51 01/02/25 03:51 Labs: Lab Results 01/02/25 01/02/25 Range/Units 03:51 04:21 WBC 12.3 H (4.8-10.8) X10*3/uL RBC 4.04 L (4.60-5.80) X10*6/uL Hgb 13.2 L (14.0-18.0) g/dl Hct 39.2 L (42.0-52.0) % MCV 97.0 (80.0-98.0) fL MCH 32.7 (27.0-33.0) pg MCHC 33.7 (31.0-36.0) g/dl RDW 12.4 (11.0-16.0) % Plt Count 250 (160-400) X10*3/uL MPV 8.6 L (9.4-12.4) fL Immature Gran % (Auto) 0.6 H (0.0-0.4) % Neut % (Auto) 85.3 H (45-73) % Lymph % (Auto) 9.7 L (20-40) % Rawlins % (Auto) 3.1 (2-11) % Eos % (Auto) 0.6 (0-4) % Baso % (Auto) 0.7 (0-2) % Lymph # (Auto) 1.2 (1.2-4.9) X10*3/uL [place] # (Auto) 0.4 (0.1-1.2) X10*3/uL Eos # (Auto) 0.1 (0.0-0.4) X10*3/uL Baso # (Auto) 0.1 (0.0-0.2) X10*3/uL Abs Immat Gran (auto) 0.07 H (0.00-0.03) X10*3/uL Absolute Neuts (auto) 10.5 H (2.0-8.3) x10*3/uL Absolute Nucleated RBC 0.000 (0.0-0.012) X10*3/uL Nucleated RBC % (auto) 0.0 (0.0-0.2) /100WBC Sodium 141 (135-145) mmol/L Potassium 4.0 (3.3-5.1) mmol/L Chloride 105 (96-108) mmol/L Carbon Dioxide 25 (22-29) mmol/L Anion Gap 15 (12-20) BUN 11 (9-16) mg/dL Creatinine 0.77 (0.5-1.4) mg/dL Estim Creat Clear Calc 83.4 Estimated GFR > 60 Random Glucose 132 H (60-115) mg/dL Lactic Acid 1.8 (0.5-2.0) mmol/L Calcium 9.6 (8.4-10.2) mg/dL Troponin I High Sens 2.8 (<3.5-35.0) ng/L B-Natriuretic Peptide 176 H (<100) pg/mL Influenza Type A (PCR) NEGATIVE (Negative) Influenza Type B (PCR) NEGATIVE (Negative) RSV RNA Qual (PCR) NEGATIVE (Negative) SARS-CoV-2 RNA (RT-PCR) NEGATIVE (Negative) Independent Interpretation I performed an independent interpretation of an: EKG and Plain X-Ray Critical Care Time Critical Care Time Critical Care Time: Yes Total Critical Care Time: 60 Attestation: I have personally provided critical care time. Time includes review of lab data, radiology results, discussion with consultants, and monitoring for potential decompensation. Intervention performed as documented. Discharge Plan Discharge Clinical Impression: Community acquired pneumonia Patient Disposition: Admitted As Inpatient Prescriptions: No Action (DME) maeve [facility] See Rx Instructions .MEDSUPPLY Qty: 1 0RF Rx Instructions: Harshal Front wheeled maeve hydroxychloroquine 200 mg tablet 200 mg PO BID esomeprazole magnesium 40 mg capsule,delayed release(DR/EC) 40 mg PO DAILY@1630 bisacodyl [Dulcolax (bisacodyl)] 5 mg tablet,delayed release (DR/EC) 10 mg PO BEDTIME PRN (Reason: Constipation) aspirin 325 mg Tablet 650 mg PO Q6H PRN (Reason: Pain) acetaminophen [Tylenol] 325 mg Tablet 650 mg PO Q4H PRN (Reason: Pain) Probiotic 3 billion cell Capsule 3,000 mmu cells PO DAILY Rx Instructions: administer with a meal cefuroxime axetil 500 mg tablet 500 mg PO BID 10 Days Qty: 20 0RF prednisone 10 mg tablet See Rx Instructions .Route .COMPLEX Qty: 45 0RF Rx Instructions: 10 mg orally; 5 tabs p.o. daily x3 days; 4 tabs p.o. daily x3 days; 3 tabs daily x3 days; 2 tabs daily x3 days; 1 tab daily x3 days azithromycin 500 mg tablet See Rx Instructions .ROUTE .COMPLEX Qty: 3 0RF Rx Instructions: For 500 mg dose pack: take 500 mg once daily for 3 days amlodipine 5 mg tablet 5 mg PO BEDTIME losartan 100 mg tablet 100 mg PO DAILY multivitamin Tablet 1 tab PO DAILY atenolol 50 mg tablet 50 mg PO DAILY Print Language: French
[2025-01-02 04:51] LABS: B Type Natriuretic Peptide 176 pg/mL (<100)
[2025-01-02 05:01] LABS: Influenza A PCR NEGATIVE (Negative); Influenza B PCR NEGATIVE (Negative); Resp Syncy Virus RNA Qual PCR NEGATIVE (Negative); SARS COV2 PCR INHOUSE NEGATIVE (Negative)
--- NOTE | 2025-01-02 07:13 | PC.NURSE ---
Addendum entered by Estela Mcleod RN 01/02/25 07:14: Patient is a 69-year-old male with pertinent history of hypertension, SLE, former tobacco use disorder, COPD not on home oxygen, gastroesophageal reflux disease, alcohol use disorder who presents to the emergency department for evaluation of fever and dyspnea. Patient began with increased sob, especially with exertion with assoc fever, chills and cough. Patient admits to drinking 6 beers a day. No history of alcohol withdrawal as per the patient Patient alert and oriented. Ambulates to the bathroom with a steady gait. Lungs essentiall clear, very decreased in the left base. Respirations even and non-labored at rest. Abdomen soft, non-tender with positive bowel sounds. Positive pedal pulses with no edema. Plan for admission. Original Note: CXR: improved aeration in the left lung. New left lower lobe consolidation.
--- NOTE | 2025-01-02 08:09 | PM.IMHP ---
History of Present Illness Date of Service: 01/02/25 Chief Complaint: fever, chills, sob The patient is a 69 year old male with a past medical history of SLE, COPD not on maintenance inhalers, prior tobacco use with cessation 10 years ago, active alcohol use with 6 beers daily, GERD, hypertension who presents to the emergency room with complaints of fevers chills and shortness of breath which began the night prior to admission. The patient reports that in the preceding 2-3 days prior to hospitalization, he has had progressive shortness of breath with decreased in activity level. He reports dyspnea on exertion. He reports nocturnal symptoms of worsening GERD as well as wheezing. He denies weight gain or lower extremity edema. He denies any chest pain. On arrival to the emergency room the patient was found to be hypertensive 150/79, tachycardic in the 120s, tachypneic in the 20s, hypoxic down to 87% on room air and had a T-max of 100.6 degrees in the emergency room. Chest imaging showed near complete resolution of his left-sided pneumonia but a new right lower lobe infiltrate was found. Blood work showed leukocytosis of 12,000, random glucose of 132, BNP of 176, lactate of 1.8, influenza A/B, RSV, [id number] serology is negative. The patient was treated with IV fluids, IV vancomycin and IV Zosyn. He continues to require supplemental oxygen and hence will be admitted to the hospital for further care. Review of Systems Review of Systems: Negative except HPI/interval history. [facility] Medical History Pneumonia involving left lung Personal history of nicotine dependence COPD (chronic obstructive pulmonary disease) Benign paroxysmal positional vertigo Tubular adenoma Lupus Pancreatic insufficiency Tubulovillous adenoma GERD (gastroesophageal reflux disease) HTN (hypertension) Family History Father HTN (hypertension) Mother Cancer Sister Cancer Surgical History Hx of tonsillectomy History of vasectomy History of colonoscopy History of left inguinal hernia repair History of esophagogastroduodenoscopy (EGD) Social History Household Members: Spouse Housing: House Do you presently have visiting nurse or other home services: No Alcohol intake: never Patient Tobacco Use Status: Former Tobacco user Smoked in Last 30 Days: No Use of substances other than those prescribed or required for medical reasons: No Advance Directives: Yes Advance Directives on File: Yes Advance Directives Date on File: 03/16/23 Do you have a plan to hurt others: No Plan service: No Meds Allergies Allergy/AdvReac Type Severity Reaction Status Date / Time ibuprofen Allergy Mild tongue Verified 01/02/25 04:14 swelling Home Medications ?Medication ?Instructions ?Recorded ?Confirmed ?Last Taken ?Type amlodipine 5 mg tablet 5 mg PO BEDTIME 08/26/21 12/11/24 12/10/24 History losartan 100 mg tablet 100 mg PO DAILY 08/26/21 12/11/24 12/10/24 History hydroxychloroquine 200 mg tablet 200 mg PO BID 03/14/23 12/11/24 12/10/24 History multivitamin 1 tab PO DAILY 03/21/23 12/11/24 12/10/24 History atenolol 50 mg tablet 50 mg PO DAILY 02/19/24 12/11/24 12/10/24 History acetaminophen 325 mg tablet 650 mg PO Q4H PRN Pain 12/11/24 12/11/24 Unknown History (Tylenol) aspirin 325 mg tablet 650 mg PO Q6H PRN Pain 12/11/24 12/11/24 Unknown History bisacodyl 5 mg tablet,delayed 10 mg PO BEDTIME PRN Constipation 12/11/24 12/11/24 Unknown History release (Dulcolax (bisacodyl)) esomeprazole magnesium 40 mg 40 mg PO DAILY@1630 12/11/24 12/11/24 12/10/24 History capsule,delayed release lactobacillus combination no.4 3 3,000 mmu cells PO DAILY 12/11/24 12/11/24 12/10/24 History billion cell capsule (Probiotic) albuterol sulfate 90 mcg/actuation 2 puff inhalation Q6H PRN dyspnea 01/02/25 Unknown History aerosol inhaler Physical Exam Vital Signs and Narrative: Vital Signs: Last Vital Signs Temp 99.0 F 01/02/25 07:27 Pulse 85 01/02/25 07:27 Resp 18 01/02/25 07:27 BP 120/56 L 01/02/25 07:27 Pulse Ox 96 01/02/25 07:27 O2 Del Method Nasal Cannula 01/02/25 07:27 O2 Flow Rate 4 01/02/25 07:27 Oxygen Flow Rate 2 01/02/25 04:07 BMI result Body Mass Index 26.6 Const: Other: Constitutional - Awake and Alert, No apparent distress Eyes - PERRLA, EOMI Cardiovascular - S1S2, RRR, No edema; no jvd Respiratory - diminised sounds globally; mild increased RR with conversational exertion Gastrointestinal - NT / ND; +BS; No rebound or guarding - No CVA tenderness Extremities - no calf tenderness bilaterally, no swelling Musculoskeletal - Normal inspection, normal ROM Skin - Warm/Dry Neurological - Alert & oriented x3, No focal deficit Psychological - Appropriate affect Results Labs 01/02/25 03:51 01/02/25 03:51 Labs: Laboratory Results - last 24 hr 01/02/25 01/02/25 03:51 04:21 MCV 97.0 MCH 32.7 MCHC 33.7 RDW 12.4 Plt Count 250 MPV 8.6 L Immature Gran % (Auto) 0.6 H Neut % (Auto) 85.3 H Lymph % (Auto) 9.7 L Norman % (Auto) 3.1 Eos % (Auto) 0.6 Baso % (Auto) 0.7 Lymph # (Auto) 1.2 Norman # (Auto) 0.4 Eos # (Auto) 0.1 Baso # (Auto) 0.1 Abs Immat Gran (auto) 0.07 H Absolute Neuts (auto) 10.5 H Absolute Nucleated RBC 0.000 Nucleated RBC % (auto) 0.0 Anion Gap 15 Estim Creat Clear Calc 83.4 Estimated GFR > 60 Random Glucose 132 H Lactic Acid 1.8 Calcium 9.6 B-Natriuretic Peptide 176 H Influenza Type A (PCR) NEGATIVE Influenza Type B (PCR) NEGATIVE RSV RNA Qual (PCR) NEGATIVE SARS-CoV-2 RNA (RT-PCR) NEGATIVE Assessment and Plan (1) Acute respiratory failure with hypoxia: Status: Resolved Plan 69 yo M with COPD, SLE, HTN, GERD, alcohol use who presents with fevers, chills and progressive shortness of breath. Found to have new right lower lobe pneumonia. 1. Sepsis (not severe) and acute resp. failure with hypoxia due to RLL pneumonia SOFA score - 2 (P/F ratio less than 300) possibly aspiration given GERD symptoms + alcohol use IV antibiotics , supplemental O2 follow up cultures will check CT chest 2. Acute COPD exacerbation pt with wheezing reported at home, currently with poor air entry globally IV solu-medrol + scheduled/PRN nebulizer outpt pulm referral -- currently only on albuterol and reports worsening symptoms last 2-3 months 3. Alcohol use disorder denies prior withdrawal symptoms will monitor on CIWA for now 4. HTN continue home meds 5. GERD PPI 6. SLE continue baseline meds Full Code DVT pptx - lovenox. Pt with sepsis and acute resp failure with hypoxia due to pneumonia with underlying risk factors of COPD + Lupus, therefore expected to require at a minimum 2 midnights in the hospital for treatment and monitoring of response. Therefore, will be admitted as inpatient. Quality Stroke Does the patient have a stroke diagnosis?: No VTE Prior VTE?: No VTE Risk Level:: Medical - moderate - high VTE Device Contraindication: N/A - Device Ordered VTE Drug Contraindication: N/A - Med Ordered
--- NOTE | 2025-01-02 09:59 | PHA.MEDREC ---
Addendum entered by Pillo Acuña RPh 01/02/25 10:28: Med rec was reviewed by Melida. Original Note: Pharmacy Consult ? Medication Reconciliation Pharmacy has completed the medication reconciliation. Patient was able to name all of his medications, Patient states he is no longer taking prednisone taper. Patient last took his medications yesterday.
[2025-01-02] MEDS: cefTRIAXone sodium 1 GM VIAL IVPUSH (10:42)
[2025-01-02] MEDS: Enoxaparin Sodium 40 MG/0.4 ML SYRINGE SUBCUT (10:42)
[2025-01-02] MEDS: methylPREDNISolone Sod Succ 40 MG/ML VIAL IVPUSH ×2 (10:42→21:39)
[2025-01-02] MEDS: Doxycycline Hyclate 100 MG in 0.9 % Sodium Chloride 250 ML 166.67 MG IV ×2 (10:43→22:55)
--- NOTE | 2025-01-02 12:12 | MHC.CM.PN ---
CM met with Patient at bedside, in the ED, and addressed IMM with him; original was given to Patient and a copy will be placed on the chart. Patient lives in a house with his /HCP/Nay, who will transport at time of dc. Home/self care is Patient's goal and CM has initiated and will follow for dc planning. PCP is Dr. Ted Pearl.
[2025-01-02] MEDS: Albuterol/Iprat 2.5/0.5MG 3 ML AMPUL.NEB INHALE ×2 (12:32→18:55)
[2025-01-02] MEDS: 0.9 % Sodium Chloride Flush 3 ML SYRINGE IVFLUSH (16:10)
--- NOTE | 2025-01-02 18:25 | MHC.EDTECH ---
pt ate 100% of dinner tray
--- NOTE | 2025-01-02 19:16 | PC.NURSE ---
this rn assumed care of pt, pt resting in stretcher, no acute distress noted. pt has breathing treatment administering at this time by rt. guys. pt offered hospital bed d/t pt being upset about having to sleep in the ed.
[2025-01-02] MEDS: Omeprazole 40 MG CAPSULE.DR PO (19:31)
--- NOTE | 2025-01-02 19:31 | PC.NURSE ---
pt placed in hospital bed for comfort, medicated per mar.
[2025-01-02] MEDS: Melatonin 3 MG TABLET 6 MG PO (21:41)
[2025-01-03] VITALS (12 sets, daily range): BP systolic 126–163; BP diastolic 65–80; PULSE 55–146; RESP 16–21; TEMP 36.4–37; O2SAT 93–99
[2025-01-03 05:53] LABS: Anion Gap 12 (12-20); Blood Urea Nitrogen 11 mg/dL (9-16); Calcium 9.5 mg/dL (8.4-10.2); Carbon Dioxide 26 mmol/L (22-29); Chloride 107 mmol/L (96-108); Estimated Glomerular Filt Rate > 60; Glucose Random 152 mg/dL (60-115); Potassium 4.1 mmol/L (3.3-5.1); Sodium 141 mmol/L (135-145)
[2025-01-03 05:57] LABS: Hemoglobin 10.9 g/dl (14.0-18.0); Mean Corpuscular HGB Conc 34.1 g/dl (31.0-36.0); Mean Corpuscular Hemoglobin 33.2 pg (27.0-33.0); Mean Corpuscular Volume 97.6 fL (80.0-98.0); Mean Platelet Volume 8.8 fL (9.4-12.4); Platelet Count 179 X10*3/uL (160-400); Red Blood Count 3.28 X10*6/uL (4.60-5.80); Red Cell Distribution Width 12.5 % (11.0-16.0); White Blood Count 14.3 X10*3/uL (4.8-10.8)
--- NOTE | 2025-01-03 07:00 | CA_ITS ---
Transthoracic Echocardiogram Patient (Last, First, Middle): Hardy Jackson M Gender: Male Date of : 1955 Age: 69 Procedure Date: 01/03/2025 Procedure Type: Transthoracic Echocardiogram Location: ER Height: 170.18 cm Weight: 77.11 kg BSA: 1.89 m2 Heart Rate: bpm BP: 163 / 71 mmHg Transplanter Orchid: [id number] Referring MD: Esthela LAWTON Marketing Planner: Duane Vicente MD Symptoms: chest pain Study Quality: Adequate ECG Rhythm: Sinus with extra beats Conclusions: - 1. Normal LV ejection fraction of 60 65% with impaired relaxation filling pattern 2. Moderately dilated left atrium 3. Mildly dilated right-sided chambers with normal RV systolic function 4. Normal cardiac valvular Dopplers 5. Moderately elevated right ventricular systolic pressure with mildly elevated right atrial pressures 6. No gross pericardial effusion Findings Left Ventricle Normal left ventricular size, thickness, and systolic function. The visually estimated ejection fraction is between 60-65%. Spectral Doppler is indicative of an impaired relaxation filling pattern. E/E prime ratio is between 8 and 15 consistent with indeterminate filling pressures. Right Ventricle Mildly increased right ventricular cavity size. There is normal right ventricular systolic function. Atria The left atrium is moderately dilated. There is lipomatous hypertrophy of the interatrial septum. There is no evidence of interatrial shunt. The right atrium is mildly dilated. Aortic Valve The aortic valve structure and function is likely normal. There is no aortic valve stenosis. There is no aortic valve regurgitation. Mitral Valve There is mild anterior mitral leaflet thickening. There is trace mitral valve regurgitation. There is no mitral valve stenosis. Pulmonic Valve The pulmonic valve was not well visualized. Tricuspid Valve Normal tricuspid valve structure. There is mild tricuspid valve regurgitation. Moderately elevated right atrial pressure. Mild pulmonary hypertension is present. Great Vessels Small plaque is seen in the sino tubular ridge. Venous The inferior vena cava is moderately dilated and collapses greater than 50% with inspiration. Pericardium/Pleural There is no evidence of pericardial effusion. Prior Study Comparison No prior study available for comparison. Measurements 2D Linear Measurements IVSd: 1.10 0.6-0.9/0.6-1.0 cm LVIDd: 4.78 3.9-5.3/4.2-5.9 cm LVIDd Index: 2.53 2.4-3.2/2.2-3.1 cm/m2 LVIDs: 3.06 2.0-3.6 cm LVPWd: 1.16 0.7-1.1 cm Ao Root: 3.70 2.1-3.5 cm LA Diam: 4.70 2.7-3.8/3.0-4.0 cm LAIDs Index: 2.49 1.5-2.3 cm/m2 LV Mass: 249.29 67-162/88-224 g LV Mass Index: 131.90 43-95/49-115 g/m2 LVOT Diam: 2.40 3.0+(-)1.3 cm Mitral Valve MV Pk E: 0.92 MV PK A: 0.84 MV Decel Time: 121.00 E/A: 1.10 E'Lateral: 10.30 E'Medial: 7.18 E/E' Med: 12.80 E/E' Lat: 8.90 PHT: 36.00 MVA PHT: 6.11 Decel Mercer: 7.58 Aortic Valve AoV Pk Edy: 1.77 AoV Mn Edy: 1.06 AoV VTI: 0.32 AoV Pk Grad: 13.00 Aov Mn Grad: 6.00 ANTHONY Cont.VTI: 3.43 LVOT LVOT Pk Edy: 1.16 LVOT Mn Edy: 0.72 LVOT VTI: 0.25 LVOT Pk Grad: 5.00 LVOT Mn Grad: 3.00 LVOT Diam: 2.40 LVOT Area: 4.52 Diastolic Function MV Pk E: 0.92 MV Pk A: 0.84 E/A: 1.10 E'Medial: 7.18 E/E' Med: 12.80 E' Laterial: 10.30 E/E' Lat: 8.90 Right Ventricle TAPSE (mm): 32.00 TVS' Edy: 16.00 Tricuspid Valve TR Pk Edy: 3.25 TR Pk Grad: 42.00 RA Press: 8.00 RVSP: 50.00 Great Vessels Aorta Ao Root-2D: 3.70 2.0-3.7 cm Ao Asc: 3.60 2.1-3.4 cm Pulmonary Valve PV Pk Edy: 1.37 Peak PV Grad: 8.00 Updated in Other Vendor System with Status of Final Duane Vicente MD electronically signed on 01/03/2025 11:03:20 AM with status of Final
[2025-01-03] MEDS: Omeprazole 40 MG CAPSULE.DR PO (07:10)
[2025-01-03] MEDS: methylPREDNISolone Sod Succ 40 MG/ML VIAL IVPUSH ×2 (07:10→21:02)
[2025-01-03] MEDS: Enoxaparin Sodium 40 MG/0.4 ML SYRINGE SUBCUT (07:10)
[2025-01-03] MEDS: 0.9 % Sodium Chloride Flush 3 ML SYRINGE IVFLUSH ×2 (07:12→21:04)
[2025-01-03] MEDS: Albuterol/Iprat 2.5/0.5MG 3 ML AMPUL.NEB INHALE ×3 (07:33→20:59)
--- NOTE | 2025-01-03 08:30 | ECG_ITS ---
Test Reason : chest pain/tachy Blood Pressure : */* mmHG Vent. Rate : 152 BPM Atrial Rate : 152 BPM P-R Int : 158 ms QRS Dur : 94 ms QT Int : 308 ms P-R-T Axes : * 13 198 degrees QTcB Int : 489 ms Sinus tachycardia with Premature supraventricular complexes Posterior infarct (cited on or before 02-Jan-2025) Marked ST abnormality, possible inferolateral subendocardial injury Abnormal ECG When compared with ECG of 03-Jan-2025 08:13, Criteria for Lateral infarct are no longer Present ST now depressed in Inferior leads ST more depressed Anterolateral leads Referred By: Esthela Dutton Electronically Signed By: BASIL HUMPHREYS MD
--- NOTE | 2025-01-03 08:34 | PC.NURSE ---
patient noted to be tachy on the monitor, repeat EKG ordered being obtained at this time. patient endorses some chest pain at this time
[2025-01-03] MEDS: Metoprolol Tartrate 5 MG/5 ML VIAL IVPUSH (08:48)
--- NOTE | 2025-01-03 08:58 | PC.NURSE ---
additional IV placed in RAC, labs obtained and sent. patient stating chest pain has resolved s/p lopressor. hr has decreased 90-110 currently. patient continues speaking in full clear sentences, well appearing with no obvious signs of distress. cardiology and hospitalist at bedside
[2025-01-03] MEDS: Nitroglycerin 2 % Oint 1 GM Packet 0.5 INCH TRANSDERMA ×3 (09:24→20:54)
[2025-01-03] MEDS: Morphine Sulfate 2 MG/ML CARTRIDGE IVPUSH (09:25)
[2025-01-03] MEDS: Metoprolol Tartrate 25 MG TABLET PO ×2 (09:26→20:53)
[2025-01-03] MEDS: Atorvastatin Calcium 80 MG TABLET PO (09:26)
[2025-01-03] MEDS: Aspirin 325 MG TABLET PO (09:27)
--- NOTE | 2025-01-03 10:01 | P.CONCA_ITS ---
History of Present Illness History of Present Illness Date of Service: 01/03/25 Requesting physician: Esthela Dutton Consult reason: chest pain Chief complaint: peumonia, hypoxic respiratory failure Narrative: I was consulted to see Hardy in cardiology consultation today urgently because of chest pain and abnormal EKG. Patient was seen in the emergency room urgently. Patient came to the hospital with fever and cough and knew that he had pneumonia. Patient said he was admitted here 2 weeks ago with pneumonia and COPD exacerbation and had left-sided pneumonia was treated for such. At home he started noticing again having symptoms of fever and cough and felt like his pneumonia was back. He therefore came to the emergency room. In the Emergency was noted to have right-sided pneumonia with multifocal opacities. He was admitted for COPD exacerbation DuoNeb management. This morning was at bedside and notice that he was not feeling well although he did not complain of anything. Noted his heart rate was elevated in the 140s. He at that time he complained of mild chest pressure. Troponin done yesterday was within normal limits. EKG done while showing normal sinus rhythm with frequent PACs with significant ST-depression. Patient said he has never had any cardiac issues in the past. He has never had any cardiac evaluation. He has history of lupus, COPD does not require oxygen, hypertension. CT scan of chest does reveal three- vessel coronary calcium. Patient was then given IV Lopressor and heart rate settled down in his symptoms of chest pressure better. His blood pressure is significantly elevated and this is got better with medications as well. Cardiology consult was sought for urgent management of his chest pain and abnormal EKG. Review of Systems 2 Constitutional: Constitutional: Reports chills and Reports fever(s) Eyes: Eyes: Reports no additional eye complaints Cardiovascular: Cardiovascular: Reports chest pain at rest, Reports rapid heart rate, Denies lightheadedness, Denies Loss of Consciousness and Reports dyspnea Respiratory: Respiratory: Reports cough and Reports dyspnea Gastrointestinal: Gastrointestinal: Reports no additional gastrointestinal complaints Genitourinary: Genitourinary: Reports no additional male genitourinary complaints Musculoskeletal: Musculoskeletal: Reports no additional musculoskeletal complaints Integumentary/Breasts: Skin/Breast: Reports system reviewed and no additional complaints, except as docu Neurologic: Reports system reviewed and no additional complaints, except as documented Psychiatric: Psychiatric: Reports no additional psychiatric complaints Endocrine: Endocrine: Reports no additional endocrine complaints PMFSH Past Medical History Medical History Pneumonia involving left lung Personal history of nicotine dependence COPD (chronic obstructive pulmonary disease) Benign paroxysmal positional vertigo Tubular adenoma Lupus Pancreatic insufficiency Tubulovillous adenoma GERD (gastroesophageal reflux disease) HTN (hypertension) Family History Family History Father HTN (hypertension) Mother Cancer Sister Cancer Surgical History Surgical History Hx of tonsillectomy History of vasectomy History of colonoscopy History of left inguinal hernia repair History of esophagogastroduodenoscopy (EGD) Social History Social History Household Members: Spouse Housing: House Do you presently have visiting nurse or other home services: No Alcohol intake: never Patient Tobacco Use Status: Former Tobacco user Smoked in Last 30 Days: No Use of substances other than those prescribed or required for medical reasons: No Advance Directives: Yes Advance Directives on File: Yes Advance Directives Date on File: 03/16/23 Do you have a plan to hurt others: No Plan Nutrition Risks: No Nutritional Risk service: No Meds Allergies Allergy/AdvReac Type Severity Reaction Status Date / Time ibuprofen Allergy Mild tongue Verified 01/02/25 04:14 swelling Active Medications: Current Medications Acetaminophen (Acetaminophen 325 Mg Tablet) 650 mg PO Q6H PRN PRN Reason: Pain, Mild 1-3,fever,headache Albuterol/Ipratropium (Albuterol/Iprat 2.5/0.5mg 3 Ml Ampul.Neb) 3 ml INHALE RQ6H WHILE AWAKE CHRISTOPHER Last Admin: 01/03/25 07:33 Dose: 3 ml Atorvastatin Calcium (Atorvastatin Calcium 80 Mg Tablet) 80 mg PO DAILY CHRISTOPHER Last Admin: 01/03/25 09:26 Dose: 80 mg Calcium Carbonate (Calcium Carbonate 750 Mg Tab.Chew) 750 mg PO Q4H PRN PRN Reason: Heartburn Ceftriaxone Sodium (Ceftriaxone Sodium 1 Gm Vial) 1 gm IVPUSH Q24H CHRISTOPHER Last Admin: 01/02/25 10:42 Dose: 1 gm Heparin Sodium (Porcine) (Heparin Sodium,Porcine 5,000 Unit/Ml Vial) 3,000 unit IVPUSH PROTOCOL BOLUS PRN; Protocol PRN Reason: 40 unit/kg - Heparin Protocol Heparin Sodium (Porcine) (Heparin Sodium,Porcine 5,000 Unit/Ml Vial) 6,000 unit IVPUSH PROTOCOL BOLUS PRN; Protocol PRN Reason: 80 unit/kg - Heparin Protocol Hydroxychloroquine Sulfate (Hydroxychloroquine Sulfate 200 Mg Tablet) 200 mg PO BID [facility] Doxycycline Hyclate 100 mg/ (Sodium Chloride) 250 mls @ 166.67 mls/hr IV Q12H CHRISTOPHER Last Infusion: 01/03/25 00:33 Dose: Infused Heparin Sodium/Sodium Chloride (Heparin Sodium,Porcine/1/2ns) 25,000 unit in 250 mls @ 0 mls/hr IVCONT .Q0M [facility]; Protocol Magnesium Hydroxide (Milk Of Magnesia 30 Ml Oral.Susp) 30 ml PO DAILY PRN PRN Reason: Constipation Melatonin (Melatonin 3 Mg Tablet) 6 mg PO BEDTIME PRN PRN Reason: Insomnia Last Admin: 01/02/25 21:41 Dose: 6 mg Methylprednisolone Sodium Succinate (Methylprednisolone Sod Succ 40 Mg/Ml Vial) 40 mg IVPUSH Q12H [facility] Last Admin: 01/03/25 07:10 Dose: 40 mg Metoprolol Tartrate (Metoprolol Tartrate 25 Mg Tablet) 25 mg PO BID [facility]; Protocol Last Admin: 01/03/25 09:26 Dose: 25 mg Multivitamins/Vitamin C (Multivitamin Tablet) 1 tab PO DAILY [facility] Nitroglycerin (Nitroglycerin 2 % Oint 1 Gm Packet) 0.5 inch TRANSDERMA RQ6H WHILE AWAKE [facility] Last Admin: 01/03/25 09:24 Dose: 0.5 inch Omeprazole (Omeprazole 40 Mg Capsule.Dr) 40 mg PO DAILY@0630 [facility] Last Admin: 01/03/25 07:10 Dose: 40 mg Sodium Chloride (0.9 % Sodium Chloride Flush 3 Ml Syringe) 3 ml IVFLUSH QSHIFT [facility] Last Admin: 01/03/25 07:12 Dose: 3 ml Home Medications ?Medication ?Instructions ?Recorded ?Confirmed ?Last Taken ?Type amlodipine 5 mg tablet 5 mg PO BEDTIME 08/26/21 01/02/25 01/01/25 History losartan 100 mg tablet 100 mg PO DAILY 08/26/21 01/02/25 01/01/25 History hydroxychloroquine 200 mg tablet 200 mg PO BID 03/14/23 01/02/25 01/01/25 History multivitamin 1 tab PO DAILY 03/21/23 01/02/25 01/01/25 History atenolol 50 mg tablet 50 mg PO DAILY 02/19/24 01/02/25 01/01/25 History acetaminophen 325 mg tablet 650 mg PO Q4H PRN Pain 12/11/24 01/02/25 Unknown History (Tylenol) bisacodyl 5 mg tablet,delayed 10 mg PO BEDTIME PRN Constipation 12/11/24 01/02/25 Unknown History release (Dulcolax (bisacodyl)) esomeprazole magnesium 40 mg 40 mg PO DAILY@1630 12/11/24 01/02/25 01/01/25 History capsule,delayed release lactobacillus combination no.4 3 3,000 mmu cells PO DAILY 12/11/24 01/02/25 01/01/25 History billion cell capsule (Probiotic) albuterol sulfate 90 mcg/actuation 2 puff inhalation Q6H PRN dyspnea 01/02/25 01/02/25 Unknown History aerosol inhaler aspirin-caffeine 500 mg-32.5 mg 1 tab PO Q6H PRN Pain 01/02/25 01/02/25 Unknown History tablet (Gary Back and Body) Physical Exam 2 Vital Signs: Vital Signs: Last Vital Signs Temp 97.5 F 01/03/25 06:00 Pulse 101 H 01/03/25 09:26 Resp 17 01/03/25 08:30 BP 129/74 01/03/25 09:26 Pulse Ox 95 01/03/25 08:30 O2 Del Method Room Air 01/03/25 08:30 O2 Flow Rate 2 01/03/25 06:00 Oxygen Flow Rate 2 01/02/25 04:07 BMI result Body Mass Index 26.6 Const: General: cooperative, comfortable, no acute distress, alert and awake Nutritional Appearance: average body habitus Orientation/consciousness: p atient oriented x3 HEENT: Head: Yes normocephalic and Yes atraumatic Neck: Neck: Yes trachea midline, Yes supple and Yes no JVD Resp: Effort & Inspection: normal respiratory effort Auscultation: rales and diminished lung sounds Cardio: Jugular venous distension: no JVD Rate: regular rate Rhythm: a bnormal rhythm with ectopic beats Heart sounds: S1 normal heart sound present, S2 normal heart sound present, no click, no gallops, no murmurs and no rubs GI: Auscultation: normal bowel sounds Skin: General skin exam: no rashes or lesions noted Neuro: General: patient oriented x3 and no focal motor deficits Extrem: General: Yes no clubbing, cyanosis or edema Psych: Appearance: grossly normal Objective Labs and Meds 01/03/25 05:13 01/03/25 05:13 Lab results: Laboratory Results - last 24 hr 01/03/25 01/03/25 01/03/25 05:13 09:30 09:40 WBC 14.3 H RBC 3.28 L Hgb 10.9 L Hct 32.0 L MCV 97.6 MCH 33.2 H MCHC 34.1 RDW 12.5 Plt Count 179 D MPV 8.8 L Absolute Nucleated RBC 0.000 Nucleated RBC % (auto) 0.0 Hold Purple Top SEE NOTE Hold Blue Top SEE NOTE Sodium 141 Potassium 4.1 Chloride 107 Carbon Dioxide 26 Anion Gap 12 BUN 11 Creatinine 0.63 Estim Creat Clear Calc 102.0 Estimated GFR > 60 Random Glucose 152 H Calcium 9.5 EKG shows sinus rhythm with frequent PACs with significant ST-depression suggestive of ischemia. I do not see any evidence of ST-elevation. Imaging Radiologist's impression: Impressions Chest CT 01/02/25 14:39 IMPRESSION: 1. Multifocal pneumonitis with most dense lobar consolidation in the right middle lobe with air bronchograms. There is also involvement of the superior segments lower lobes, upper lobes, and lingula. No pulmonary abscess identified. 2. There are no effusions. 3. 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 4. There is a prominent main pulmonary artery suggesting increased pulmonary pressures. 5. There are ancillary findings as discussed in the body of the report. Electronically signed by: Shaw Boothe MD 01/02/2025 03:14 PM EDT Assessment and Plan (1) Acute coronary syndrome: Status: Acute Acute coronary syndrome with patient having chest pain with significant EKG changes suggestive of myocardial ischemia. This could however be related to demand with significant arrhythmias as well as hypertension. However primary acute coronary syndrome is also likely. At this point time will treat him aggressively with anti ischemic therapy. His symptoms resolved with rate control as well as better blood pressure improvement. Continue monitor EKGs here sleep. Advised the patient to call us if he has any further chest pain episodes. I would start him on IV heparin given 4 baby aspirins. High- intensity statin therapy. Start him on nitro paste as well as p.o. metoprolol. Troponins to be performed. Echo at bedside. Given his acute pneumonia and COPD exacerbation and febrile illness would manage his acute coronary syndrome conservatively till his pulmonary situation improves at which point time will consider further ischemic workup. This was clearly discussed with the patient. He understands and agrees. Will continue to follow with you. Greater than 40 minutes was spent in managing his care Procedures Date of Service Date of Service: 01/03/25
[2025-01-03 10:14] LABS: Hematocrit 34.1 % (42.0-52.0); Hemoglobin 11.6 g/dl (14.0-18.0); Mean Corpuscular Hemoglobin 33.1 pg (27.0-33.0); Mean Corpuscular Volume 97.4 fL (80.0-98.0); Mean Platelet Volume 9.6 fL (9.4-12.4); Platelet Count 179 X10*3/uL (160-400); Red Cell Distribution Width 12.6 % (11.0-16.0)
[2025-01-03 10:15] LABS: INTERNATIONAL NORM RATIO 1.3 (0.9-1.1)
[2025-01-03 10:17] LABS: PTT Heparin Drip 34.5 SEC (53-77.9)
[2025-01-03 10:23] LABS: Troponin-I High Sensitivity < 2.7 ng/L (<3.5-35.0)
[2025-01-03] MEDS: Heparin Sodium,Porcine/1/2NS 25,000 UNIT/250 ML IV.SOLN 9.04 UNIT IVCONT (10:23)
[2025-01-03] MEDS: cefTRIAXone sodium 1 GM VIAL IVPUSH (10:26)
[2025-01-03] MEDS: Doxycycline Hyclate 100 MG in 0.9 % Sodium Chloride 250 ML 166.67 MG IV ×2 (10:26→21:03)
--- NOTE | 2025-01-03 10:32 | PC.NURSE ---
Pt still denying chest pain. Pt PTT resulted. heparin started as ordered. Repeat PTT at 1625
[2025-01-03 10:39] LABS: Magnesium 1.3 mg/dL (1.6-2.6)
[2025-01-03] MEDS: Magnesium Sulfate/H2O 2 GM/50 ML PIGGYBACK IV (12:06)
--- NOTE | 2025-01-03 13:00 | P.PNIM_ITS ---
Subjective Subjective Date of Service: 01/03/25 Interval History: Seen and examined this morning Admitted for pneumonia, COPD exacerbation Called this morning patient's heart rate was in the 150s, patient complaining of chest pain. EKG appeared abnormal. IV lopressor ordered, HR improved and chest pain resolved. Review of Systems Review of Systems: Yes all other systems are reviewed and are negative Constitutional Constitutional: Denies chills and Denies fever(s) Cardiovascular Cardiovascular: Reports chest pain, Denies palpitations and Reports dyspnea Respiratory Respiratory: Reports dyspnea Endocrine Endocrine: Denies palpitations Physical Exam 2 Vital Signs: Vital Signs: Last Vital Signs Temp 97.8 F 01/03/25 12:10 Pulse 85 01/03/25 12:10 Resp 19 01/03/25 12:10 BP 134/65 01/03/25 12:10 Pulse Ox 95 01/03/25 12:10 O2 Del Method Room Air 01/03/25 12:10 O2 Flow Rate 2 01/03/25 06:00 Oxygen Flow Rate 2 01/02/25 04:07 BMI result Body Mass Index 26.6 Const: General: cooperative, comfortable, alert and awake Nutritional Appearance: average body habitus Orientation/consciousness: patient oriented x3 Resp: Effort & Inspection: normal respiratory effort, able to speak in complete sentences, no respiratory distress and no use of accessory muscles Cardio: Rate: tachycardic GI: Inspection: No distended Palpation (GI): Soft to palpation Neuro: General: patient oriented x3, moves all extremities and CN's II-XI intact bilaterally Extrem: Other: b/l LE venous stasis skin changes General: Yes no pedal edema Objective Data Active Medications Acetaminophen (Acetaminophen 325 Mg Tablet) 650 mg PO Q6H PRN PRN Reason: Pain, Mild 1-3,fever,headache Albuterol/Ipratropium (Albuterol/Iprat 2.5/0.5mg 3 Ml Ampul.Neb) 3 ml INHALE RQ6H WHILE AWAKE [facility] Last Admin: 01/03/25 07:33 Dose: 3 ml Documented By: DAKOTAH Atorvastatin Calcium (Atorvastatin Calcium 80 Mg Tablet) 80 mg PO DAILY [facility] Last Admin: 01/03/25 09:26 Dose: 80 mg Documented By: BHAVNA Calcium Carbonate (Calcium Carbonate 750 Mg Tab.Chew) 750 mg PO Q4H PRN PRN Reason: Heartburn Ceftriaxone Sodium (Ceftriaxone Sodium 1 Gm Vial) 1 gm IVPUSH Q24H [facility] Last Admin: 01/03/25 10:26 Dose: 1 gm Documented By: SELVIN Heparin Sodium (Porcine) (Heparin Sodium,Porcine 5,000 Unit/Ml Vial) 3,000 unit IVPUSH PROTOCOL BOLUS PRN; Protocol PRN Reason: 40 unit/kg - Heparin Protocol Heparin Sodium (Porcine) (Heparin Sodium,Porcine 5,000 Unit/Ml Vial) 6,000 unit IVPUSH PROTOCOL BOLUS PRN; Protocol PRN Reason: 80 unit/kg - Heparin Protocol Hydroxychloroquine Sulfate (Hydroxychloroquine Sulfate 200 Mg Tablet) 200 mg PO BID [facility] Doxycycline Hyclate 100 mg/ (Sodium Chloride) 250 mls @ 166.67 mls/hr IV Q12H [facility] Last Infusion: 01/03/25 11:56 Dose: Infused Documented By: BHAVNA Heparin Sodium/Sodium Chloride (Heparin Sodium,Porcine/1/2ns) 25,000 unit in 250 mls @ 0 mls/hr IVCONT .Q0M [facility]; Protocol Last Admin: 01/03/25 10:23 Dose: 12 units/kg/hr, 9.04 mls/hr Documented By: SELVIN Co-signed By: BHAVNA Magnesium Hydroxide (Milk Of Magnesia 30 Ml Oral.Susp) 30 ml PO DAILY PRN PRN Reason: Constipation Melatonin (Melatonin 3 Mg Tablet) 6 mg PO BEDTIME PRN PRN Reason: Insomnia Last Admin: 01/02/25 21:41 Dose: 6 mg Documented By: MELINDA Methylprednisolone Sodium Succinate (Methylprednisolone Sod Succ 40 Mg/Ml Vial) 40 mg IVPUSH Q12H [facility] Last Admin: 01/03/25 07:10 Dose: 40 mg Documented By: SELVIN Metoprolol Tartrate (Metoprolol Tartrate 25 Mg Tablet) 25 mg PO BID [facility]; Protocol Last Admin: 01/03/25 09:26 Dose: 25 mg Documented By: BHAVNA Multivitamins/Vitamin C (Multivitamin Tablet) 1 tab PO DAILY [facility] Nitroglycerin (Nitroglycerin 2 % Oint 1 Gm Packet) 0.5 inch TRANSDERMA RQ6H WHILE AWAKE [facility] Last Admin: 01/03/25 09:24 Dose: 0.5 inch Documented By: BHAVNA Omeprazole (Omeprazole 40 Mg Ruth.) 40 mg PO DAILY@0630 [facility] Last Admin: 01/03/25 07:10 Dose: 40 mg Documented By: SELVIN Sodium Chloride (0.9 % Sodium Chloride Flush 3 Ml Syringe) 3 ml IVFLUSH QSHIFT [facility] Last Admin: 01/03/25 07:12 Dose: 3 ml Documented By: SELVIN Labs 01/03/25 09:30 01/03/25 05:13 Labs: Laboratory Results - last 24 hr 01/03/25 01/03/25 01/03/25 05:13 09:30 09:40 MCV 97.6 97.4 MCH 33.2 H 33.1 H MCHC 34.1 34.0 RDW 12.5 12.6 Plt Count 179 D 179 MPV 8.8 L 9.6 Absolute Nucleated RBC 0.000 0.000 Nucleated RBC % (auto) 0.0 0.0 Hold Purple Top SEE NOTE PT 15.0 H INR 1.3 H aPTT Heparin Protocol 34.5 L Hold Blue Top SEE NOTE Anion Gap 12 Estim Creat Clear Calc 102.0 Estimated GFR > 60 Random Glucose 152 H Calcium 9.5 Magnesium 1.3 L* Troponin I High Sens 01/03/25 01/03/25 09:43 Unknown MCV MCH MCHC RDW Plt Count MPV Absolute Nucleated RBC Nucleated RBC % (auto) Hold Purple Top SEE NOTE PT INR aPTT Heparin Protocol Hold Blue Top SEE NOTE Anion Gap Estim Creat Clear Calc Estimated GFR Random Glucose Calcium Magnesium Troponin I High Sens < 2.7 Microbiology Microbiology Results: Microbiology 01/02/25 03:51 Blood Culture - Preliminary Blood - Venous No growth after 24 hours. 01/02/25 03:51 Blood Culture - Preliminary Blood - Venous No growth after 24 hours. Assessment and Plan (1) Acute coronary syndrome: Status: Acute (2) Recurrent pneumonia: Status: Acute (3) Emphysema lung: Status: Acute Plan This is a 69 yo M with COPD, SLE, HTN, GERD, alcohol use who presents with fevers, chills and progressive shortness of breath. Found to have new right lower lobe pneumonia subsequently developed chest pain with abnormal EKG Sepsis (not severe) and acute resp. failure with hypoxia due to RLL pneumonia SOFA score - 2 (P/F ratio less than 300) possibly aspiration given GERD symptoms + alcohol use continue IV doxycyline and ceftriaxone, supplemental O2 follow blood cultures echo with elevated right atrial pressures - will obtain CTA to rule out PE acute coronary syndrome chest pain + ischemic EKG changes; trop negative heparin drip, ASA, statin, nitrates echo with impaired relaxation, no wall motion abnormality will need ischemic workup timing tbd, treat underlying pulmonary process first Acute COPD exacerbation IV solu-medrol + scheduled/PRN nebulizer outpt pulm referral -- currently only on albuterol and reports worsening symptoms last 2-3 months Alcohol use disorder denies prior withdrawal symptoms follow CIWA Hypomagnesemia Replace and follow HTN lopressor and nitrates for now GERD PPI SLE continue baseline meds Full Code DVT pptx - heparin patient requires ongoing inpatient stay for sepsis and acute resp failure with hypoxia due to pneumonia with underlying risk factors of COPD + Lupus, therefore expected to require at a minimum 2 midnights in the hospital for treatment and monitoring of response. Therefore, will be admitted as inpatient. Quality Stroke Does the patient have a stroke diagnosis?: No VTE Prior VTE?: No VTE Risk Level:: Medical - moderate - high VTE Device Contraindication: N/A - Device Ordered VTE Drug Contraindication: N/A - Med Ordered
[2025-01-03] MEDS: iohexoL 350 MG/ML 100 ML INFUS..BTL IV (15:05)
[2025-01-03 17:21] LABS: PTT Heparin Drip 46.4 SEC (53-77.9)
[2025-01-03] MEDS: Heparin Sodium,Porcine 5,000 UNIT/ML VIAL 3000 UNIT IVPUSH (18:03)
[2025-01-03] MEDS: Hydroxychloroquine Sulfate 200 MG TABLET PO (20:53)
[2025-01-03] MEDS: Melatonin 3 MG TABLET 6 MG PO (20:53)
[2025-01-04] VITALS (8 sets, daily range): BP systolic 115–160; BP diastolic 66–84; PULSE 72–106; RESP 17–20; TEMP 36.2–37.1; O2SAT 92–95
[2025-01-04 01:08] LABS: PTT Heparin Drip 63.2 SEC (53-77.9)
[2025-01-04] MEDS: Omeprazole 40 MG CAPSULE.DR PO (05:37)
[2025-01-04 07:36] LABS: Hematocrit 31.9 % (42.0-52.0); Hemoglobin 11.1 g/dl (14.0-18.0); Mean Corpuscular HGB Conc 34.8 g/dl (31.0-36.0); Mean Corpuscular Hemoglobin 33.3 pg (27.0-33.0); Mean Corpuscular Volume 95.8 fL (80.0-98.0); Mean Platelet Volume 8.8 fL (9.4-12.4); Platelet Count 231 X10*3/uL (160-400); Red Blood Count 3.33 X10*6/uL (4.60-5.80); Red Cell Distribution Width 12.5 % (11.0-16.0); White Blood Count 16.8 X10*3/uL (4.8-10.8)
[2025-01-04 07:49] LABS: INTERNATIONAL NORM RATIO 1.2 (0.9-1.1); Prothrombin Time 13.2 SEC (10.9-12.4)
[2025-01-04 07:52] LABS: PTT Heparin Drip 49.2 SEC (53-77.9)
[2025-01-04 07:58] LABS: Anion Gap 14 (12-20); Blood Urea Nitrogen 17 mg/dL (9-16); Calcium 9.7 mg/dL (8.4-10.2); Carbon Dioxide 23 mmol/L (22-29); Chloride 105 mmol/L (96-108); Creatinine Clr Calc Pharmacy 95.9; Estimated Glomerular Filt Rate > 60; Glucose Random 127 mg/dL (60-115); Potassium 3.8 mmol/L (3.3-5.1); Sodium 138 mmol/L (135-145)
[2025-01-04 08:11] LABS: Magnesium 1.9 mg/dL (1.6-2.6)
[2025-01-04] MEDS: Heparin Sodium,Porcine 5,000 UNIT/ML VIAL 3000 UNIT IVPUSH (08:17)
[2025-01-04] MEDS: cefTRIAXone sodium 1 GM VIAL IVPUSH (10:05)
[2025-01-04] MEDS: Doxycycline Hyclate 100 MG in 0.9 % Sodium Chloride 250 ML 166.67 MG IV ×2 (10:08→22:16)
[2025-01-04] MEDS: methylPREDNISolone Sod Succ 40 MG/ML VIAL IVPUSH ×2 (10:08→22:15)
[2025-01-04] MEDS: Multivitamin TABLET 1 TAB PO (10:09)
[2025-01-04] MEDS: Hydroxychloroquine Sulfate 200 MG TABLET PO ×2 (10:09→22:16)
[2025-01-04] MEDS: Nitroglycerin 2 % Oint 1 GM Packet 0.5 INCH TRANSDERMA ×3 (10:10→22:30)
[2025-01-04] MEDS: 0.9 % Sodium Chloride Flush 3 ML SYRINGE IVFLUSH ×2 (10:10→15:56)
[2025-01-04] MEDS: Metoprolol Tartrate 25 MG TABLET PO (10:10)
[2025-01-04] MEDS: Aspirin Enteric Coated 81 MG TABLET.DR PO (10:10)
--- NOTE | 2025-01-04 10:13 | P.PNCA_ITS ---
Subjective Subjective Date of Service: 01/04/25 Principal diagnosis: COPD exacerbation, unstable angina Interval history: patient has not had any overnight chest pain. Cardiac markers were negative. Echocardiogram shows preserved LV ejection fraction. Shortness of breath and fever have improved. Continues to have sinus rhythm with PACs although has no tachycardia. Review of Systems Constitutional: Reports no additional constitutional complaints Cardiovascular: Denies chest pain, Denies lightheadedness, Denies Loss of Consciousness, Denies palpitations and Reports dyspnea on exertion Respiratory: Reports dyspnea on exertion Skin/Breast: Denies system reviewed and no additional complaints, except as docu Endocrine: Denies palpitations Physical Exam Vital Signs: Last Vital Signs Temp 97.7 F 01/04/25 07:26 Pulse 76 01/04/25 07:26 Resp 20 01/04/25 07:26 BP 144/84 H 01/04/25 07:26 Pulse Ox 93 01/04/25 07:26 O2 Del Method Room Air 01/04/25 07:26 O2 Flow Rate 2 01/03/25 06:00 Oxygen Flow Rate 2 01/02/25 04:07 BMI result Body Mass Index 26.6 Const General: cooperative, comfortable, no acute distress, alert and awake Nutritional Appearance: average body habitus Orientation/consciousness: patient oriented x3 HEENT Head: Yes normocephalic and Yes atraumatic Neck Neck: Yes trachea midline, Yes supple and Yes no JVD Resp Effort & Inspection: normal respiratory effort Auscultation: diminished lung sounds Cardio Jugular venous distension: no JVD Rate: regular rate Rhythm: abnormal rhythm with ectopic beats Heart sounds: S1 normal heart sound present, S2 normal heart sound present, no click, no gallops, no murmurs and no rubs GI Auscultation: normal bowel sounds Skin General skin exam: no rashes or lesions noted Neuro General: patient oriented x3 and no focal motor deficits Extrem General: Yes no clubbing, cyanosis or edema Psych Appearance: grossly normal Objective Labs and Meds 01/04/25 07:23 01/04/25 07:23 Lab results: Laboratory Results - last 24 hr 01/03/25 01/03/25 01/03/25 09:30 09:40 09:43 WBC 16.0 H RBC 3.50 L Hgb 11.6 L Hct 34.1 L MCV 97.4 MCH 33.1 H MCHC 34.0 RDW 12.6 Plt Count 179 MPV 9.6 Absolute Nucleated RBC 0.000 Nucleated RBC % (auto) 0.0 Hold Purple Top PT 15.0 H INR 1.3 H aPTT Heparin Protocol 34.5 L Hold Blue Top Sodium Potassium Chloride Carbon Dioxide Anion Gap BUN Creatinine Estim Creat Clear Calc Estimated GFR Random Glucose Calcium Magnesium 1.3 L* Troponin I High Sens < 2.7 01/03/25 01/03/25 01/04/25 16:35 Unknown 00:25 WBC RBC Hgb Hct MCV MCH MCHC RDW Plt Count MPV Absolute Nucleated RBC Nucleated RBC % (auto) Hold Purple Top SEE NOTE PT INR aPTT Heparin Protocol 46.4 L D 63.2 D Hold Blue Top SEE NOTE Sodium Potassium Chloride Carbon Dioxide Anion Gap BUN Creatinine Estim Creat Clear Calc Estimated GFR Random Glucose Calcium Magnesium Troponin I High Sens 01/04/25 07:23 WBC 16.8 H RBC 3.33 L Hgb 11.1 L Hct 31.9 L MCV 95.8 MCH 33.3 H MCHC 34.8 RDW 12.5 Plt Count 231 D MPV 8.8 L Absolute Nucleated RBC 0.000 Nucleated RBC % (auto) 0.0 Hold Purple Top PT 13.2 H INR 1.2 H aPTT Heparin Protocol 49.2 L D Hold Blue Top Sodium 138 Potassium 3.8 Chloride 105 Carbon Dioxide 23 Anion Gap 14 BUN 17 H Creatinine 0.67 Estim Creat Clear Calc 95.9 Estimated GFR > 60 Random Glucose 127 H Calcium 9.7 Magnesium 1.9 Troponin I High Sens Imaging Radiologist's impression: Impressions Chest CTA 01/03/25 14:50 IMPRESSION: 1. No evidence of pulmonary embolus. No evidence of acute aortic syndrome. Enlarged main pulmonary artery suggesting increased pulmonary pressures. Mild cardiomegaly. 2. Multifocal pneumonitis with similar dense lobar consolidation right middle lobe. Persistent but mildly improving opacities in the bilateral upper lobes and lingula. 3. 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 4. There are no effusions. Electronically signed by: Shaw Boothe MD 01/03/2025 03:17 PM EDT Progress Note: A&P Assessment and plan (1) Acute coronary syndrome: Status: Acute Assessment and Plan: Acute coronary syndrome in the setting of COPD exacerbation with pneumonia. Continue treat underlying pulmonary situation. Once that gets better I think he will need cardiac catheterization to further evaluate coronary anatomy. Could represent demand ischemia but high likelihood of underlying significant coronary artery disease was discussed with him. Continue IV heparin for 1 more day. Continue aspirin high-intensity statin therapy. Increase metoprolol to 50 mg b.i.d. and continue nitro paste for now. We discussed the need for cardiac catheterization and the associated procedure with associated risks and benefits and alternatives. He showed understanding. Once more stabilized will transfer to [facility] for cardiac catheterization. Anticipate transfer on Monday. Will follow with you Time Spent With Patient Time: Total time managing care of this patient today ____ minutes. Progress Note: Quality Stroke Does the patient have a stroke diagnosis?: No Procedures Date of Service Date of Service: 01/04/25
[2025-01-04] MEDS: Heparin Sodium,Porcine/1/2NS 25,000 UNIT/250 ML IV.SOLN 12.05 UNIT IVCONT (10:29)
--- NOTE | 2025-01-04 10:52 | HO.PM.IMPN ---
Subjective Subjective Date of Service: 01/04/25 Interval History: seen and examined this morning follow up for COPD, pneumonia, breathing improving, minimal cough no recurrent chest pain Review of Systems Review of Systems: Yes all other systems are reviewed and are negative Constitutional Constitutional: Denies chills and Denies fever(s) Cardiovascular Cardiovascular: Denies chest pain, Denies palpitations and Denies dyspnea Respiratory Respiratory: Denies cough and Denies dyspnea Gastrointestinal Gastrointestinal: Denies abdominal pain, Denies nausea and Denies vomiting Endocrine Endocrine: Denies palpitations Physical Exam Vital Signs: Vital Signs: Last Vital Signs Temp 97.7 F 01/04/25 07:26 Pulse 76 01/04/25 07:26 Resp 20 01/04/25 07:26 BP 144/84 H 01/04/25 07:26 Pulse Ox 93 01/04/25 07:26 O2 Del Method Room Air 01/04/25 07:26 O2 Flow Rate 2 01/03/25 06:00 Oxygen Flow Rate 2 01/02/25 04:07 BMI result Body Mass Index 26.6 Const: General: cooperative, comfortable, alert and awake Nutritional Appearance: average body habitus Orientation/consciousness: patient oriented x3 Resp: Other: decreased air entry, dim b/l no wheeze Effort & Inspection: normal respiratory effort, able to speak in complete sentences, no respiratory distress and no use of accessory muscles Cardio: Rate: tachycardic GI: Inspection: No distended Palpation (GI): Soft to palpation Neuro: General: patient oriented x3, moves all extremities and CN's II-XI intact bilaterally Extrem: Other: b/l LE venous stasis skin changes General: Yes no pedal edema Objective Data Active Medications Acetaminophen (Acetaminophen 325 Mg Tablet) 650 mg PO Q6H PRN PRN Reason: Pain, Mild 1-3,fever,headache Albuterol/Ipratropium (Albuterol/Iprat 2.5/0.5mg 3 Ml Ampul.Neb) 3 ml INHALE RQ6H WHILE AWAKE [facility] Last Admin: 01/04/25 08:44 Dose: Not Given Documented By: GERHARD Non-Admin Reason: Patient Refused Aspirin (Aspirin Enteric Coated 81 Mg Tablet.) 81 mg PO DAILY [facility] Last Admin: 01/04/25 10:10 Dose: 81 mg Documented By: ABHILASH Atorvastatin Calcium (Atorvastatin Calcium 80 Mg Tablet) 80 mg PO BEDTIME [facility] Calcium Carbonate (Calcium Carbonate 750 Mg Tab.Chew) 750 mg PO Q4H PRN PRN Reason: Heartburn Ceftriaxone Sodium (Ceftriaxone Sodium 1 Gm Vial) 1 gm IVPUSH Q24H [facility] Last Admin: 01/04/25 10:05 Dose: 1 gm Documented By: ABHILASH Heparin Sodium (Porcine) (Heparin Sodium,Porcine 5,000 Unit/Ml Vial) 3,000 unit IVPUSH PROTOCOL BOLUS PRN; Protocol PRN Reason: 40 unit/kg - Heparin Protocol Last Admin: 01/04/25 08:17 Dose: 3,000 unit Documented By: ABHILASH Heparin Sodium (Porcine) (Heparin Sodium,Porcine 5,000 Unit/Ml Vial) 6,000 unit IVPUSH PROTOCOL BOLUS PRN; Protocol PRN Reason: 80 unit/kg - Heparin Protocol Hydroxychloroquine Sulfate (Hydroxychloroquine Sulfate 200 Mg Tablet) 200 mg PO BID [facility] Last Admin: 01/04/25 10:09 Dose: 200 mg Documented By: ABHILASH Doxycycline Hyclate 100 mg/ (Sodium Chloride) 250 mls @ 166.67 mls/hr IV Q12H [facility] Last Admin: 01/04/25 10:08 Dose: 166.67 mls/hr Documented By: ABHILASH Heparin Sodium/Sodium Chloride (Heparin Sodium,Porcine/1/2ns) 25,000 unit in 250 mls @ 0 mls/hr IVCONT .Q0M [facility]; Protocol Last Admin: 01/04/25 10:29 Dose: 16 units/kg/hr, 12.05 mls/hr Documented By: ABHILASH Co-signed By: AMENA Magnesium Hydroxide (Milk Of Magnesia 30 Ml Oral.Susp) 30 ml PO DAILY PRN PRN Reason: Constipation Melatonin (Melatonin 3 Mg Tablet) 6 mg PO BEDTIME PRN PRN Reason: Insomnia Last Admin: 01/03/25 20:53 Dose: 6 mg Documented By: NINFA Methylprednisolone Sodium Succinate (Methylprednisolone Sod Succ 40 Mg/Ml Vial) 40 mg IVPUSH Q12H [facility] Last Admin: 01/04/25 10:08 Dose: 40 mg Documented By: ABHILASH Metoprolol Tartrate (Metoprolol Tartrate 25 Mg Tablet) 25 mg PO BID [facility]; Protocol Last Admin: 01/04/25 10:10 Dose: 25 mg Documented By: ABHILASH Multivitamins/Vitamin C (Multivitamin Tablet) 1 tab PO DAILY [facility] Last Admin: 01/04/25 10:09 Dose: 1 tab Documented By: ABHILASH Nitroglycerin (Nitroglycerin 2 % Oint 1 Gm Packet) 0.5 inch TRANSDERMA RQ6H WHILE AWAKE [facility] Last Admin: 01/04/25 10:10 Dose: 0.5 inch Documented By: ABHILASH Omeprazole (Omeprazole 40 Mg Capsule.Dr) 40 mg PO DAILY@0630 [facility] Last Admin: 01/04/25 05:37 Dose: 40 mg Documented By: BRITNEY-ADAMZETimothy Sodium Chloride (0.9 % Sodium Chloride Flush 3 Ml Syringe) 3 ml IVFLUSH QSHIFT [facility] Last Admin: 01/04/25 10:10 Dose: 3 ml Documented By: ABHILASH Trazodone HCl (Trazodone Hcl 25 Mg Halftab) 25 mg PO BEDTIME PRN PRN Reason: Sleep Labs 01/04/25 07:23 01/04/25 07:23 Labs: Laboratory Results - last 24 hr 01/03/25 01/03/25 01/04/25 16:35 Unknown 00:25 MCV MCH MCHC RDW Plt Count MPV Absolute Nucleated RBC Nucleated RBC % (auto) Hold Purple Top SEE NOTE PT INR aPTT Heparin Protocol 46.4 L D 63.2 D Hold Blue Top SEE NOTE Anion Gap Estim Creat Clear Calc Estimated GFR Random Glucose Calcium Magnesium 01/04/25 07:23 MCV 95.8 MCH 33.3 H MCHC 34.8 RDW 12.5 Plt Count 231 D MPV 8.8 L Absolute Nucleated RBC 0.000 Nucleated RBC % (auto) 0.0 Hold Purple Top PT 13.2 H INR 1.2 H aPTT Heparin Protocol 49.2 L D Hold Blue Top Anion Gap 14 Estim Creat Clear Calc 95.9 Estimated GFR > 60 Random Glucose 127 H Calcium 9.7 Magnesium 1.9 Microbiology Microbiology Results: Microbiology 01/02/25 03:51 Blood Culture - Preliminary Blood - Venous No growth after 48 hours. 01/02/25 03:51 Blood Culture - Preliminary Blood - Venous No growth after 48 hours. Assessment and Plan (1) Acute coronary syndrome: Status: Acute (2) Recurrent pneumonia: Status: Acute (3) COPD (chronic obstructive pulmonary disease): Status: Acute Plan This is a 69 yo M with COPD, SLE, HTN, GERD, alcohol use who presents with fevers, chills and progressive shortness of breath. Found to have new right lower lobe pneumonia subsequently developed chest pain with abnormal EKG Sepsis (not severe) and acute resp. failure with hypoxia due to RLL pneumonia SOFA score - 2 (P/F ratio less than 300) continue IV doxycyline and ceftriaxone weaned off of supplemental O2 blood cultures negative to date echo with elevated right atrial pressures - CTA negative for PE acute coronary syndrome chest pain + ischemic EKG changes; trop negative heparin drip, ASA, statin, nitrates; titrate up dose of metoprolol echo with impaired relaxation, no wall motion abnormality will need ischemic workup, likely transfer to [facility] [place] likely Monday treat underlying pulmonary process first Acute COPD exacerbation IV solu-medrol + scheduled/PRN nebulizer outpt pulm referral - currently only on albuterol and reports worsening symptoms last 2-3 months Alcohol use disorder no active withdrawal symptoms CIWA remains low Hypomagnesemia Replace and follow HTN lopressor and nitrates for now GERD PPI SLE continue hydroxychloroquine Full Code DVT pptx - heparin dispo: like transfer to [facility] monday for cardiac cath patient requires ongoing inpatient stay for sepsis and acute resp failure with hypoxia due to pneumonia with underlying risk factors of COPD + Lupus; ACS requiring heparin drip Quality Stroke Does the patient have a stroke diagnosis?: No VTE Prior VTE?: No VTE Risk Level:: Medical - moderate - high VTE Device Contraindication: N/A - Device Ordered VTE Drug Contraindication: N/A - Med Ordered
[2025-01-04] MEDS: Milk of Magnesia 30 ML ORAL.SUSP PO (12:26)
[2025-01-04] MEDS: Albuterol/Iprat 2.5/0.5MG 3 ML AMPUL.NEB INHALE ×2 (13:42→19:16)
[2025-01-04 14:42] LABS: PTT Heparin Drip 87.8 SEC (53-77.9)
[2025-01-04 21:57] LABS: PTT Heparin Drip 35.7 SEC (53-77.9)
[2025-01-04] MEDS: Atorvastatin Calcium 80 MG TABLET PO (22:15)
[2025-01-04] MEDS: Metoprolol Tartrate 50 MG TABLET PO (22:16)
[2025-01-04] MEDS: traZODone HCL 25 MG HALFTAB PO (22:16)
[2025-01-04] MEDS: Heparin Sodium,Porcine 5,000 UNIT/ML VIAL 6000 UNIT IVPUSH (22:18)
[2025-01-05] VITALS (8 sets, daily range): BP systolic 120–163; BP diastolic 61–82; PULSE 62–84; RESP 16–20; TEMP 36.2–36.4; O2SAT 92–98
[2025-01-05 04:43] LABS: PTT Heparin Drip 177.1 SEC (53-77.9)
[2025-01-05] MEDS: Omeprazole 40 MG CAPSULE.DR PO (05:59)
[2025-01-05] MEDS: Albuterol/Iprat 2.5/0.5MG 3 ML AMPUL.NEB INHALE ×3 (07:12→19:43)
[2025-01-05] MEDS: 0.9 % Sodium Chloride Flush 3 ML SYRINGE IVFLUSH ×4 (07:51→22:04)
[2025-01-05] MEDS: Hydroxychloroquine Sulfate 200 MG TABLET PO ×2 (08:26→21:21)
[2025-01-05] MEDS: Aspirin Enteric Coated 81 MG TABLET.DR PO (08:26)
[2025-01-05] MEDS: Multivitamin TABLET 1 TAB PO (08:26)
[2025-01-05] MEDS: Nitroglycerin 2 % Oint 1 GM Packet 0.5 INCH TRANSDERMA ×2 (08:27→14:02)
[2025-01-05] MEDS: Metoprolol Tartrate 50 MG TABLET PO ×2 (08:27→21:21)
[2025-01-05] MEDS: methylPREDNISolone Sod Succ 40 MG/ML VIAL IVPUSH ×2 (08:29→21:21)
[2025-01-05] MEDS: cefTRIAXone sodium 1 GM VIAL IVPUSH (10:43)
[2025-01-05] MEDS: Doxycycline Hyclate 100 MG in 0.9 % Sodium Chloride 250 ML 166.67 MG IV ×2 (10:43→22:04)
--- NOTE | 2025-01-05 11:20 | P.PNIM_ITS ---
Subjective Subjective Date of Service: 01/05/25 Interval History: Seen and examined this morning Follow-up for pneumonia/COPD/chest pain No overnight events, no further episodes of chest pain Breathing improving, no longer dyspneic with ambulation Review of Systems Review of Systems: Yes all other systems are reviewed and are negative Constitutional Constitutional: Denies chills and Denies fever(s) ENT Ears, Nose, Mouth, and Throat: Denies dizziness Cardiovascular Cardiovascular: Denies chest pain and Denies palpitations Neurologic Neurologic: Denies dizziness Endocrine Endocrine: Denies palpitations Physical Exam 2 Vital Signs: Vital Signs: Last Vital Signs Temp 97.1 F 01/05/25 11:06 Pulse 62 01/05/25 11:06 Resp 20 01/05/25 11:06 BP 140/78 H 01/05/25 11:06 Pulse Ox 95 01/05/25 11:06 O2 Del Method Room Air 01/05/25 11:06 O2 Flow Rate 2 01/03/25 06:00 Oxygen Flow Rate 2 01/02/25 04:07 BMI result Body Mass Index 26.6 Const: General: cooperative, comfortable, alert and awake Nutritional Appearance: average body habitus Orientation/consciousness: patient oriented x3 Resp: Other: decreased air entry, dim b/l no wheeze Effort & Inspection: normal respiratory effort, able to speak in complete sentences, no respiratory distress and no use of accessory muscles Cardio: Rate: tachycardic GI: Inspection: No distended Palpation (GI): Soft to palpation Neuro: General: patient oriented x3, moves all extremities and CN's II-XI intact bilaterally Extrem: Other: b/l LE venous stasis skin changes General: Yes no pedal edema Objective Data Active Medications Acetaminophen (Acetaminophen 325 Mg Tablet) 650 mg PO Q6H PRN PRN Reason: Pain, Mild 1-3,fever,headache Albuterol/Ipratropium (Albuterol/Iprat 2.5/0.5mg 3 Ml Ampul.Neb) 3 ml INHALE RQ6H WHILE AWAKE [facility] Last Admin: 01/05/25 07:12 Dose: 3 ml Documented By: GERHARD Aspirin (Aspirin Enteric Coated 81 Mg Tablet.) 81 mg PO DAILY [facility] Last Admin: 01/05/25 08:26 Dose: 81 mg Documented By: JAI Atorvastatin Calcium (Atorvastatin Calcium 80 Mg Tablet) 80 mg PO BEDTIME [facility] Last Admin: 01/04/25 22:15 Dose: 80 mg Documented By: NINFA Calcium Carbonate (Calcium Carbonate 750 Mg Tab.Chew) 750 mg PO Q4H PRN PRN Reason: Heartburn Ceftriaxone Sodium (Ceftriaxone Sodium 1 Gm Vial) 1 gm IVPUSH Q24H [facility] Last Admin: 01/05/25 10:43 Dose: 1 gm Documented By: JAI Hydroxychloroquine Sulfate (Hydroxychloroquine Sulfate 200 Mg Tablet) 200 mg PO BID [facility] Last Admin: 01/05/25 08:26 Dose: 200 mg Documented By: JAI Doxycycline Hyclate 100 mg/ (Sodium Chloride) 250 mls @ 166.67 mls/hr IV Q12H [facility] Last Admin: 01/05/25 10:43 Dose: 166.67 mls/hr Documented By: JAI Magnesium Hydroxide (Milk Of Magnesia 30 Ml Oral.Susp) 30 ml PO DAILY PRN PRN Reason: Constipation Last Admin: 01/04/25 12:26 Dose: 30 ml Documented By: ABHILASH Melatonin (Melatonin 3 Mg Tablet) 6 mg PO BEDTIME PRN PRN Reason: Insomnia Last Admin: 01/03/25 20:53 Dose: 6 mg Documented By: NINFA Methylprednisolone Sodium Succinate (Methylprednisolone Sod Succ 40 Mg/Ml Vial) 40 mg IVPUSH Q12H [facility] Last Admin: 01/05/25 08:29 Dose: 40 mg Documented By: JAI Metoprolol Tartrate (Metoprolol Tartrate 50 Mg Tablet) 50 mg PO BID [facility]; Protocol Last Admin: 01/05/25 08:27 Dose: 50 mg Documented By: JAI Multivitamins/Vitamin C (Multivitamin Tablet) 1 tab PO DAILY [facility] Last Admin: 01/05/25 08:26 Dose: 1 tab Documented By: JAI Nitroglycerin (Nitroglycerin 2 % Oint 1 Gm Packet) 0.5 inch TRANSDERMA RQ6H WHILE AWAKE [facility] Last Admin: 01/05/25 08:27 Dose: 0.5 inch Documented By: JAI Omeprazole (Omeprazole 40 Mg Capsule.Dr) 40 mg PO DAILY@0630 [facility] Last Admin: 01/05/25 05:59 Dose: 40 mg Documented By: NINFA Sodium Chloride (0.9 % Sodium Chloride Flush 3 Ml Syringe) 3 ml IVFLUSH QSHIFT [facility] Last Admin: 01/05/25 07:51 Dose: 3 ml Documented By: JAI Trazodone HCl (Trazodone Hcl 25 Mg Halftab) 25 mg PO BEDTIME PRN PRN Reason: Sleep Last Admin: 01/04/25 22:16 Dose: 25 mg Documented By: NINFA Labs 01/04/25 07:23 01/04/25 07:23 Labs: Laboratory Results - last 24 hr 01/04/25 01/04/25 01/05/25 14:19 21:34 04:11 aPTT Heparin Protocol 87.8 H D 35.7 L D 177.1 H* D 01/05/25 01/05/25 05:54 07:23 aPTT Heparin Protocol 97.0 H D 52.0 L D Assessment and Plan (1) Acute coronary syndrome: Status: Acute (2) Recurrent pneumonia: Status: Acute Plan This is a 69 yo M with COPD, SLE, HTN, GERD, alcohol use who presents with fevers, chills and progressive shortness of breath. Found to have new right lower lobe pneumonia subsequently developed chest pain with abnormal EKG Sepsis (not severe) and acute resp. failure with hypoxia due to RLL pneumonia SOFA score - 2 (P/F ratio less than 300) continue IV doxycyline and ceftriaxone, can transition to po upon discharge weaned off of supplemental O2 blood cultures negative to date echo with elevated right atrial pressures - CTA negative for PE acute coronary syndrome chest pain + ischemic EKG changes; trop negative s/p 48 hours of heparin continue ASA, statin, nitrates, lopresor echo with impaired relaxation, no wall motion abnormality will need ischemic workup, likely [place] [facility] [place] Acute COPD exacerbation IV solu-medrol + scheduled/PRN nebulizer- wean steroids, transition to po prednisone in am outpt pulm referral - currently only on albuterol and reports worsening symptoms last 2-3 months Alcohol use disorder no active withdrawal symptoms CIWA remains low Hypomagnesemia Improved with replacement HTN lopressor and nitrates for now GERD PPI SLE continue hydroxychloroquine Full Code DVT pptx - heparin dispo: like transfer [place] [facility] [place] patient requires ongoing inpatient stay for sepsis and acute resp failure with hypoxia due to pneumonia with underlying risk factors of COPD + Lupus; ACS requiring heparin drip Quality Stroke Does the patient have a stroke diagnosis?: No VTE Prior VTE?: No VTE Risk Level:: Medical - moderate - high VTE Device Contraindication: N/A - Device Ordered VTE Drug Contraindication: N/A - Med Ordered
--- NOTE | 2025-01-05 13:51 | P.DS_ITS ---
DS: Providers Provider Date of Service: 01/06/25 <LEIGHANN Valdes - Last Filed: 01/05/25 13:57> Date of admission: 01/02/25 07:04 <LEIGHANN Valdes - Last Filed: 01/05/25 13:57> Date of discharge: 01/06/25 <LEIGHANN Valdes - Last Filed: 01/05/25 13:57> Primary care physician: Ted Pearl MD <LEIGHANN Valdes - Last Filed: 01/05/25 13:57> Consults: 01/03/25 08:33 Consult to Cardiology Routine Consulting Provider: [facility] Reason for consultation: chest pain, afib Has provider been notified: No <LEIGHANN Valdes - Last Filed: 01/05/25 13:57> DS: Diagnosis Discharge Diagnosis (1) Acute coronary syndrome: Status: Acute <LEIGHANN Valdes Last Filed: 01/05/25 13:57> (2) Recurrent pneumonia: Status: Acute <LEIGHANN Valdes - Last Filed: 01/05/25 13:57> DS: Summary Hospital Course Hospital Course: From H&P on the day of admission The patient is a 69 year old male with a past medical history of SLE, COPD not on maintenance inhalers, prior tobacco use with cessation 10 years ago, active alcohol use with 6 beers daily, GERD, hypertension who presents to the emergency room with complaints of fevers chills and shortness of breath which began the night prior to admission. The patient reports that in the preceding 2-3 days prior to hospitalization, he has had progressive shortness of breath with decreased in activity level. He reports dyspnea on exertion. He reports nocturnal symptoms of worsening GERD as well as wheezing. He denies weight gain or lower extremity edema. He denies any chest pain. On arrival to the emergency room the patient was found to be hypertensive 150/79, tachycardic in the 120s, tachypneic in the 20s, hypoxic down to 87% on room air and had a T-max of 100.6 degrees in the emergency room. Chest imaging showed near complete resolution of his left-sided pneumonia but a new right lower lobe infiltrate was found. Blood work showed leukocytosis of 12,000, random glucose of 132, BNP of 176, lactate of 1.8, influenza A/B, RSV, [id number] serology is negative. The patient was treated with IV fluids, IV vancomycin and IV Zosyn. He continues to require supplemental oxygen and hence will be admitted to the hospital for further care. Initially admitted to the hospital for pneumonia and COPD exacerbation, subsequently developed tachycardia and chest pain with ischemic EKG. Sepsis (not severe) and acute resp. failure with hypoxia due to RLL pneumonia Initially treated with IV doxycyline and ceftriaxone, can transition to po upon discharge, total 5 days, end date 01/07/25 weaned off of supplemental O2. blood cultures negative to date. echo with elevated right atrial pressures - CTA negative for PE acute coronary syndrome chest pain + ischemic EKG changes; trop negative. s/p 48 hours of heparin Started on ASA, statin, nitrates, lopresor echo with impaired relaxation, no wall motion abnormality Has had no further episodes of chest pain Plan to transfer to [facility] for cardiac catheterization Acute COPD exacerbation Initially treated with IV solu-medrol + scheduled/PRN nebulizer- steroids were weaned to oral prednisone. Recommend outpt pulm referral - currently only on albuterol and reports worsening symptoms last 2-3 months Alcohol use disorder. no active withdrawal symptoms. CIWA remains low Hypomagnesemia Improved with replacement <LEIGHANN Valdes - Last Filed: 01/05/25 13:57> Time Attestation Discharge Coordination Time (in mins): 40 <Estelita Amaya NP - Last Filed: 01/06/25 15:49> Quality: Safe Use of Opioids Does Pt have an Active Cancer Diagnosis on the Problem List?: No <LEIGHANN Valdes - Last Filed: 01/05/25 13:57> Quality: Stroke Does the patient have a stroke diagnosis?: No <LEIGHANN Valdes - Last Filed: 01/05/25 13:57> Physical Exam Vital Signs: Vital Signs: Last Vital Signs Temp 97.1 F 01/05/25 11:06 Pulse 62 01/05/25 11:06 Resp 20 01/05/25 11:06 BP 140/78 H 01/05/25 11:06 Pulse Ox 95 01/05/25 11:06 O2 Del Method Room Air 01/05/25 11:06 O2 Flow Rate 2 01/03/25 06:00 Oxygen Flow Rate 2 01/02/25 04:07 BMI result Body Mass Index 26.6 <LEIGHANN Valdes - Last Filed: 01/05/25 13:57> Appearing in no acute distress head is normocephalic atraumatic eyes pupils are PERRLA sclera is anicteric mouth throat mucous membranes are intact and moist neck is supple no lymphadenopathy, no JVD noted lung sounds are clear to auscultation heart regular rate rhythm, clear S1, S2 positive bowel sounds, abdomen is soft, nontender neuro patient is alert x3, no focal deficits <Estelita Amaya NP - Last Filed: 01/06/25 15:49> DS: Data Data Completed and Pending Labs on day of discharge: Laboratory Results - last 24 hr 01/04/25 01/04/25 01/05/25 14:19 21:34 04:11 aPTT Heparin Protocol 87.8 H D 35.7 L D 177.1 H* D 01/05/25 01/05/25 05:54 07:23 aPTT Heparin Protocol 97.0 H D 52.0 L D Preliminary micro results at discharge 01/02/25 03:51 Blood Culture - Preliminary Blood - Venous No growth after 48 hours. 01/02/25 03:51 Blood Culture - Preliminary Blood - Venous No growth after 48 hours. <LEIGHANN Valdes - Last Filed: 01/05/25 13:57> Discharge Plan Discharge Anticipated Discharge Date/Time: 01/06/25 15:30 <LEIGHANN Valdes - Last Filed: 01/05/25 13:57> Patient Disposition: [facility] <LEIGHANN Valdes - Last Filed: 01/05/25 13:57> Discharge Diagnosis: COPD exacerbation Pneumonia ACS low magnesium <LEIGHANN Valdes - Last Filed: 01/05/25 13:57> COPD exacerbation Pneumonia ACS low magnesium <Estelita Amaya NP - Last Filed: 01/06/25 15:49> Referrals: Ted Pearl MD [Primary Care Provider] - 1 Week <LEIGHANN Valdes - Last Filed: 01/05/25 13:57> Discharge Medications: New atorvastatin 80 mg Tablet 80 mg PO BEDTIME Qty: 30 0RF isosorbide mononitrate 30 mg Tablet Extended Release 24 Hr 30 mg PO DAILY Qty: 30 0RF Protocol: Hold for SBP< HOLD for SBP < : 90 omeprazole 40 mg Capsule,Delayed Release(Dr/Ec) 40 mg PO DAILY@0630 Qty: 30 0RF aspirin 81 mg Tablet,Delayed Release (Dr/Ec) 81 mg PO DAILY Qty: 30 0RF ceftriaxone 1 gram Recon Soln 1 g IVPUSH Q24H Qty: 1 0RF doxycycline hyclate [Doxy-100] 100 mg Recon Soln 100 mg IV Q12H Qty: 5 0RF metoprolol tartrate 50 mg Tablet 50 mg PO BID Qty: 60 0RF Protocol: Hold for SBP/HR < HOLD for SBP < : 90 HOLD for HR < : 60 [facility]ued (DME[facility] Inst[facility] .MEDSUPPLY Qty: 1 0RF Rx Instructions: Folding Front wheeled maeve albuterol sulfate 90 mcg/actuation HFA aerosol inhaler 2 puff inhalation Q6H PRN (Reason: dyspnea) Gary Back and Body 500-32.5 mg Tablet 1 tab PO Q6H PRN (Reason: Pain) hydroxychloroquine 200 mg tablet 200 mg PO BID esomeprazole magnesium 40 mg capsule,delayed release(DR/EC) 40 mg PO DAILY@1630 bisacodyl [Dulcolax (bisacodyl)] 5 mg tablet,delayed release (DR/EC) 10 mg PO BEDTIME PRN (Reason: Constipation) acetaminophen [Tylenol] 325 mg Tablet 650 mg PO Q4H PRN (Reason: Pain) Probiotic 3 billion cell Capsule 3,000 mmu cells PO DAILY Rx Instructions: administer with a meal multivitamin Tablet 1 tab PO DAILY Discontinued amlodipine 5 mg tablet 5 mg PO BEDTIME losartan 100 mg tablet 100 mg PO DAILY atenolol 50 mg tablet 50 mg PO DAILY <LEIGHANN Valdes - Last Filed: 01/05/25 13:57> Discharge Orders: Discharge Order (Routine); Ordered 01/06/25 Ordered By: Estelita Amaya <LEIGHANN Valdes - Last Filed: 01/05/25 13:57> Diet: Advance to usual diet <LEIGHANN Valdes - Last Filed: 01/05/25 13:57> Advance to usual diet <Estelita Amaya NP - Last Filed: 01/06/25 15:49> Activity on Discharge: As tolerated <LEIGHANN Valdes - Last Filed: 01/05/25 13:57> As tolerated <Estelita Amaya NP - Last Filed: 01/06/25 15:49> Stand Alone Forms: Patient Portal Discharge page <LEIGHANN Valdes - Last Filed: 01/05/25 13:57> Print Language: Czech <LEIGHANN Valdes - Last Filed: 01/05/25 13:57> Care Plan Goals: see below <LEIGHANN Valdes - Last Filed: 01/05/25 13:57> Health Concerns: COPD exacerbation Pneumonia Low magnesium-resolved with replacement Alcohol use disorder-no evidence of alcohol withdrawal ACS <LEIGHANN Valdes - Last Filed: 01/05/25 13:57> Plan of Treatment: Complete 5 day course of oral steroids, Complete course of oral antibiotics as prescribed, end date Started on aspirin, statin, metoprolol, imdur stop atenolol, amlodipine, losartan Transfer to [facility] for cardiac catheterization for assessment of coronary anatomy <LEIGHANN Valdes - Last Filed: 01/05/25 13:57> Assessment: see discharge summary <LEIGHANN Valdes - Last Filed: 01/05/25 13:57>
--- NOTE | 2025-01-05 15:07 | PM.PNCARD ---
Subjective Subjective Date of Service: 01/05/25 Principal diagnosis: COPD exacerbation, unstable angina Interval history: No overnight chest pain. Noted to have frequent PACs overnight. No atrial fibrillation. Blood pressure is stable. Review of Systems Constitutional: Reports no additional constitutional complaints Cardiovascular: Reports no additional cardiovascular complaints Respiratory: Reports no additional respiratory complaints Gastrointestinal: Reports no additional gastrointestinal complaints Musculoskeletal: Reports no additional musculoskeletal complaints Reports system reviewed and no additional complaints, except as documented Hematologic/Lymphatic: Reports no additional hematologic/lymphatic complaints Physical Exam Vital Signs: Last Vital Signs Temp 97.1 F 01/05/25 11:06 Pulse 73 01/05/25 14:16 Resp 18 01/05/25 14:16 BP 140/78 H 01/05/25 11:06 Pulse Ox 95 01/05/25 11:06 O2 Del Method Room Air 01/05/25 11:06 O2 Flow Rate 2 01/03/25 06:00 Oxygen Flow Rate 2 01/02/25 04:07 BMI result Body Mass Index 26.6 Const General: cooperative, comfortable, no acute distress, alert and awake Nutritional Appearance: average body habitus Orientation/consciousness: patient oriented x3 HEENT Head: Yes normocephalic and Yes atraumatic Neck Neck: Yes trachea midline, Yes supple and Yes no JVD Resp Effort & Inspection: normal respiratory effort Auscultation: diminished lung sounds Cardio Jugular venous distension: no JVD Rate: regular rate Rhythm: abnormal rhythm with ectopic beats Heart sounds: S1 normal heart sound present, S2 normal heart sound present, no click, no gallops, no murmurs and no rubs GI Auscultation: normal bowel sounds Skin General skin exam: no rashes or lesions noted Neuro General: patient oriented x3 and no focal motor deficits Extrem General: Yes no clubbing, cyanosis or edema Psych Appearance: grossly normal Objective Labs and Meds 01/04/25 07:23 01/04/25 07:23 Lab results: Laboratory Results - last 24 hr 01/04/25 01/05/25 01/05/25 21:34 04:11 05:54 aPTT Heparin Protocol 35.7 L D 177.1 H* D 97.0 H D 01/05/25 07:23 aPTT Heparin Protocol 52.0 L D Progress Note: A&P Assessment and plan (1) Acute coronary syndrome: Status: Acute Assessment and Plan: Acute coronary syndrome with significant EKG changes suggestive of ischemia with chest pain syndrome. High likelihood of underlying coronary artery disease. Markers are negative. Has not had any recurrent chest pain or any significant other arrhythmias or heart failure symptoms. Echo shows normal LV ejection fraction. We discussed the need for cardiac catheterization. We also discussed the procedure. Risks, benefits, alternatives were discussed. Understands agrees. Continue aspirin, statins, nitrates and isosorbide. [facility] triage has been called for transfer. Sign of the case till transfer. Time Spent With Patient Time: Total time managing care of this patient today ____ minutes. Progress Note: Quality Stroke Does the patient have a stroke diagnosis?: No Procedures Date of Service Date of Service: 01/05/25
[2025-01-05] MEDS: Atorvastatin Calcium 80 MG TABLET PO (21:21)
[2025-01-05] MEDS: traZODone HCL 25 MG HALFTAB PO (22:04)
[2025-01-06] VITALS (7 sets, daily range): BP systolic 131–158; BP diastolic 70–94; PULSE 69–87; RESP 16–20; TEMP 36.6–37.1; O2SAT 93–95
[2025-01-06] MEDS: Omeprazole 40 MG CAPSULE.DR PO (06:28)
[2025-01-06] MEDS: Albuterol/Iprat 2.5/0.5MG 3 ML AMPUL.NEB INHALE ×2 (07:39→14:08)
--- NOTE | 2025-01-06 08:50 | MHC.CM.PN ---
EMR REVIEWED, PER CARDIOLOGY NOTE ANTIC [place] [facility] [place], CM WILL FOLLOW UNTIL TXFR.
[2025-01-06] MEDS: Metoprolol Tartrate 50 MG TABLET PO (09:16)
[2025-01-06] MEDS: Aspirin Enteric Coated 81 MG TABLET.DR PO (09:16)
[2025-01-06] MEDS: Multivitamin TABLET 1 TAB PO (09:16)
[2025-01-06] MEDS: Isosorbide Mononitrate 30 MG TAB.ER.24H PO (09:16)
[2025-01-06] MEDS: predniSONE 20 MG TABLET 40 MG PO (09:17)
[2025-01-06] MEDS: Hydroxychloroquine Sulfate 200 MG TABLET PO (09:17)
[2025-01-06] MEDS: Doxycycline Hyclate 100 MG in 0.9 % Sodium Chloride 250 ML 166.67 MG IV (09:18)
[2025-01-06] MEDS: cefTRIAXone sodium 1 GM VIAL IVPUSH (09:18)
--- NOTE | 2025-01-06 14:16 | HO.PM.IMPN ---
Subjective Subjective Date of Service: 01/06/25 Interval History: Seen and examined this morning Follow-up for pneumonia/COPD/chest pain No overnight events, no further episodes of chest pain Breathing improving, no longer dyspneic with ambulation Review of Systems Review of Systems: Yes all other systems are reviewed and are negative Constitutional Constitutional: Denies chills and Denies fever(s) ENT Ears, Nose, Mouth, and Throat: Denies dizziness Cardiovascular Cardiovascular: Denies chest pain and Denies palpitations Neurologic Neurologic: Denies dizziness Endocrine Endocrine: Denies palpitations Physical Exam Vital Signs: Vital Signs: Last Vital Signs Temp 98.7 F 01/06/25 12:00 Pulse 78 01/06/25 14:09 Resp 18 01/06/25 14:09 BP 134/86 01/06/25 12:00 Pulse Ox 93 01/06/25 12:00 O2 Del Method Room Air 01/06/25 12:00 O2 Flow Rate 2 01/03/25 06:00 Oxygen Flow Rate 2 01/02/25 04:07 BMI result Body Mass Index 26.6 Appearing in no acute distress lung sounds are clear to auscultation heart regular rate rhythm, clear S1, S2 positive bowel sounds, abdomen is soft, nontender neuro patient is alert x3, no focal deficits Objective Data Active Medications Acetaminophen (Acetaminophen 325 Mg Tablet) 650 mg PO Q6H PRN PRN Reason: Pain, Mild 1-3,fever,headache Albuterol/Ipratropium (Albuterol/Iprat 2.5/0.5mg 3 Ml Ampul.Neb) 3 ml INHALE RQ6H WHILE AWAKE [facility] Last Admin: 01/06/25 14:08 Dose: 3 ml Documented By: GIO Aspirin (Aspirin Enteric Coated 81 Mg Tablet.) 81 mg PO DAILY [facility] Last Admin: 01/06/25 09:16 Dose: 81 mg Documented By: LISA Atorvastatin Calcium (Atorvastatin Calcium 80 Mg Tablet) 80 mg PO BEDTIME [facility] Last Admin: 01/05/25 21:21 Dose: 80 mg Documented By: ANDREZ Calcium Carbonate (Calcium Carbonate 750 Mg Tab.Chew) 750 mg PO Q4H PRN PRN Reason: Heartburn Ceftriaxone Sodium (Ceftriaxone Sodium 1 Gm Vial) 1 gm IVPUSH Q24H [facility] Last Admin: 01/06/25 09:18 Dose: 1 gm Documented By: LISA Hydroxychloroquine Sulfate (Hydroxychloroquine Sulfate 200 Mg Tablet) 200 mg PO BID [facility] Last Admin: 01/06/25 09:17 Dose: 200 mg Documented By: LISA Doxycycline Hyclate 100 mg/ (Sodium Chloride) 250 mls @ 166.67 mls/hr IV Q12H [facility] Last Infusion: 01/06/25 10:50 Dose: Infused Documented By: LISA Isosorbide Mononitrate (Isosorbide Mononitrate 30 Mg Tab.Er.24h) 30 mg PO DAILY [facility]; Protocol Last Admin: 01/06/25 09:16 Dose: 30 mg Documented By: LISA Magnesium Hydroxide (Milk Of Magnesia 30 Ml Oral.Susp) 30 ml PO DAILY PRN PRN Reason: Constipation Last Admin: 01/04/25 12:26 Dose: 30 ml Documented By: ABHILASH Melatonin (Melatonin 3 Mg Tablet) 6 mg PO BEDTIME PRN PRN Reason: Insomnia Last Admin: 01/03/25 20:53 Dose: 6 mg Documented By: NINFA Metoprolol Tartrate (Metoprolol Tartrate 50 Mg Tablet) 50 mg PO BID [facility]; Protocol Last Admin: 01/06/25 09:16 Dose: 50 mg Documented By: LISA Multivitamins/Vitamin C (Multivitamin Tablet) 1 tab PO DAILY [facility] Last Admin: 01/06/25 09:16 Dose: 1 tab Documented By: LISA Omeprazole (Omeprazole 40 Mg Capsule.) 40 mg PO DAILY@0630 [facility] Last Admin: 01/06/25 06:28 Dose: 40 mg Documented By: ANDREZ Prednisone (Prednisone 20 Mg Tablet) 40 mg PO DAILY [facility] Last Admin: 01/06/25 09:17 Dose: 40 mg Documented By: LISA Sodium Chloride (0.9 % Sodium Chloride Flush 3 Ml Syringe) 3 ml IVFLUSH QSHIFT [facility] Last Admin: 01/05/25 22:04 Dose: 3 ml Documented By: ANDREZ Trazodone HCl (Trazodone Hcl 25 Mg Halftab) 25 mg PO BEDTIME PRN PRN Reason: Sleep Last Admin: 01/05/25 22:04 Dose: 25 mg Documented By: ANDREZ Labs 01/04/25 07:23 01/04/25 07:23 Assessment and Plan (1) Acute coronary syndrome: Status: Acute (2) Recurrent pneumonia: Status: Acute Plan 69 yo M with COPD, SLE, HTN, GERD, alcohol use who presents with fevers, chills and progressive shortness of breath. Found to have new right lower lobe pneumonia subsequently developed chest pain with abnormal EKG Acute coronary syndrome chest pain + ischemic EKG changes; trop negative s/p 48 hours of heparin continue ASA, statin, nitrates, lopresor echo with impaired relaxation, no wall motion abnormality will need ischemic workup, likely transfer to [facility] [place] for cardiac cath likely Monday Sepsis (not severe) and acute resp. failure with hypoxia due to RLL pneumonia SOFA score - 2 (P/F ratio less than 300) continue IV doxycyline and ceftriaxone, can transition to po upon discharge weaned off of supplemental O2 blood cultures negative to date echo with elevated right atrial pressures>CTA negative for PE Acute COPD exacerbation IV solu-medrol + scheduled/PRN nebulizer>wean steroids, transition to po prednisone in am outpt pulm referral>currently only on albuterol and reports worsening symptoms last 2-3 months Alcohol use disorder no active withdrawal symptoms CIWA remains low Hypomagnesemia Improved with replacement HTN lopressor and nitrates for now GERD PPI SLE continue hydroxychloroquine Full Code DVT pptx - heparin dispo: transfer to [facility] [place] Monday for cardiac cath Quality Stroke Does the patient have a stroke diagnosis?: No VTE Prior VTE?: No VTE Risk Level:: Medical - moderate - high VTE Device Contraindication: N/A - Device Ordered VTE Drug Contraindication: N/A - Med Ordered
== END 2025-01-06 16:59 | disposition short-term general hospital (02) | DRG 871 ==
LOC: HO.ED 06:54 → HO.EDOVER 07:06 → HO.IMC 01-03 15:34
PROVIDERS: Emergency Medicine Emergency Medical Services; Family Medicine; Physician Assistant Medical; Admitting Provider Internal Medicine; Emergency Provider Emergency Medicine; PCP Internal Medicine; Visit Provider Nurse Practitioner Acute Care
DX: A41.9 Sepsis, unspecified organism (principal); J69.0 Pneumonitis due to inhalation of food and vomit; J96.01 Acute respiratory failure with hypoxia; I24.9 Acute ischemic heart disease, unspecified; M32.9 Systemic lupus erythematosus, unspecified; E83.42 Hypomagnesemia; J43.9 Emphysema, unspecified; F10.90 Alcohol use, unspecified, uncomplicated; I10 Essential (primary) hypertension; K21.9 Gastro-esophageal reflux disease without esophagitis; Z87.891 Personal history of nicotine dependence; Z87.01 Personal history of pneumonia (recurrent); Z79.899 Other long term (current) drug therapy
CPT/HCPCS: 0241U; 36415; 71045; 71250; 71275; 80048; 83605; 83735; 83880; 84484; 85025; 85027; 85610; 85730; 87040; 93005; 93306; 94640; 99285; J0696; J1271; J1644; J1650; J2270; J2543; J2919; J3370; J3475; Q9957; Q9967

== ENCOUNTER → 2025-01-02 03:43 | Outpatient (BNV) | payer MEDICARE, SELFPAY | PROVIDERS: Emergency Provider Emergency Medicine; PCP Internal Medicine; Visit Provider Radiology Diagnostic Radiology | DX: J18.1 Lobar pneumonia, unspecified organism (principal) | CPT/HCPCS: 71045; 71250 ==

== ENCOUNTER → 2025-01-02 03:43 | Outpatient (BNV) | payer MEDICARE, SELFPAY | PROVIDERS: Admitting Provider Internal Medicine; Emergency Provider Emergency Medicine; PCP Internal Medicine; Visit Provider Internal Medicine Cardiovascular Disease | DX: I49.1 Atrial premature depolarization (principal); R00.0 Tachycardia, unspecified | CPT/HCPCS: 93010 ==

== ENCOUNTER 2025-01-02 07:04 | Outpatient (BNV) | payer MEDICARE, SELFPAY | END 2025-01-03 14:50 | PROVIDERS: Admitting Provider Internal Medicine; Emergency Provider Emergency Medicine; PCP Internal Medicine; Visit Provider Radiology Diagnostic Radiology | DX: J18.1 Lobar pneumonia, unspecified organism (principal) | CPT/HCPCS: 71275 ==

== ENCOUNTER 2025-01-02 07:04 | Outpatient (BNV) | payer MEDICARE, SELFPAY | END 2025-01-03 07:00 | PROVIDERS: Admitting Provider Internal Medicine; Emergency Provider Emergency Medicine; PCP Internal Medicine; Visit Provider Internal Medicine Cardiovascular Disease | DX: I51.7 Cardiomegaly (principal); I36.1 Nonrheumatic tricuspid (valve) insufficiency | CPT/HCPCS: 93306 ==

== ENCOUNTER → 2025-01-02 07:04 | Outpatient (BNV) | payer MEDICARE, SELFPAY | PROVIDERS: Admitting Provider Internal Medicine; Emergency Provider Emergency Medicine; PCP Internal Medicine; Visit Provider Internal Medicine Cardiovascular Disease | DX: I24.9 Acute ischemic heart disease, unspecified (principal) | CPT/HCPCS: 99232; 99233 ==

== ENCOUNTER → 2025-01-02 07:04 | Outpatient (BNV) | payer MEDICARE, SELFPAY | PROVIDERS: Admitting Provider Internal Medicine; Emergency Provider Emergency Medicine; PCP Internal Medicine; Visit Provider Family Medicine | DX: J96.01 Acute respiratory failure with hypoxia (principal) | CPT/HCPCS: 99223 ==

== ENCOUNTER → 2025-01-07 23:59 | Outpatient (BNV) | payer MEDICARE, SELFPAY | PROVIDERS: PCP Internal Medicine; Visit Provider Internal Medicine Cardiovascular Disease | DX: I20.0 Unstable angina (principal) | CPT/HCPCS: 93458; 99152 ==

== ENCOUNTER → 2025-01-23 03:40 | Outpatient (BNV) | payer MEDICARE, SELFPAY | PROVIDERS: PCP Internal Medicine; Visit Provider Radiology Diagnostic Radiology | DX: J94.8 Other specified pleural conditions (principal) | CPT/HCPCS: 71046 ==

== ENCOUNTER 2025-01-23 04:11 | Emergency (ER) | payer MEDICARE, SELFPAY ==
--- NOTE | 2025-01-23 | ECG_ITS ---
Test Reason : SOB Blood Pressure : */* mmHG Vent. Rate : 98 BPM Atrial Rate : 98 BPM P-R Int : 132 ms QRS Dur : 88 ms QT Int : 416 ms P-R-T Axes : 105 10 2 degrees QTcB Int : 531 ms Sinus rhythm with Premature atrial complexes Possible Lateral infarct , age undetermined Posterior infarct (cited on or before 02-Jan-2025) Prolonged QT Abnormal ECG When compared with ECG of 03-Jan-2025 08:30, Vent. rate has decreased by 54 bpm Serial changes of Posterior infarct Present Referred By: Generic ED Physician Electronically Signed By: Young Bauman
--- NOTE | ~2025-01-23 | XR_ITS ---
CLINICAL HISTORY: SOB 2 view chest x-ray. Comparison: CT/AK/SR - CT ANGIO CHEST PE PROTOCOL - 01/03/25 14:50 EDT CR - XR CHEST 1V - 01/02/25 04:02 EDT Findings: Stable lung volumes. Improvement in the airspace disease left upper lobe. Right lung is clear. Stable mild pleural-parenchymal disease left lower lobe. Heart size normal. No passive venous congestion. No midline shift or tracheal deviation. No acute fracture. Bridging syndesmophytes. Impression: 1. Improvement in the airspace disease left upper lobe. Mild persistent pleural-parenchymal disease left lower lobe. This document has been electronically signed by: Wyatt Conway MD on 01/23/2025 05:39:58
[2025-01-23 04:15] VITALS: BP 172/101; PULSE 103; RESP 20; TEMP 37.4; O2SAT 94; BMI 26.6
[2025-01-23 04:41] LABS: MANUAL DIFF FLAG NO
[2025-01-23 04:43] LABS: Basophils Absolute Auto 0.1 X10*3/uL (0.0-0.2); Basophils Percent Auto 0.5 % (0-2); Eosinophils Absolute Auto 0.1 X10*3/uL (0.0-0.4); Eosinophils Percent Auto 0.9 % (0-4); Hematocrit 33.5 % (42.0-52.0); Hemoglobin 12.3 g/dl (14.0-18.0); Imm Gran Abs Auto 0.06 X10*3/uL (0.00-0.03); Imm Gran Pct Auto 0.5 % (0.0-0.4); Lymphocytes Absolute Auto 0.9 X10*3/uL (1.2-4.9); Mean Corpuscular HGB Conc 36.7 g/dl (31.0-36.0); Mean Corpuscular Hemoglobin 33.3 pg (27.0-33.0); Mean Corpuscular Volume 90.8 fL (80.0-98.0); Monocytes Absolute Auto 0.8 X10*3/uL (0.1-1.2); Monocytes Percent Auto 5.8 % (2-11); Neutrophils Percent Auto 85.3 % (45-73); Platelet Count 209 X10*3/uL (160-400); Red Blood Count 3.69 X10*6/uL (4.60-5.80); Red Cell Distribution Width 12.3 % (11.0-16.0); White Blood Count 12.9 X10*3/uL (4.8-10.8)
[2025-01-23 04:56] LABS: Alanine Aminotransferase 33 U/L (0-40); Alkaline Phosphatase 89 U/L (39-117); Anion Gap 15 (12-20); Aspartate Amino Transferase 28 U/L (5-37); Bilirubin Total 0.9 mg/dL (0.0-1.0); Blood Urea Nitrogen 6 mg/dL (9-16); Calcium 9.3 mg/dL (8.4-10.2); Carbon Dioxide 24 mmol/L (22-29); Chloride 106 mmol/L (96-108); Creatinine Clr Calc Pharmacy 80.5; Estimated Glomerular Filt Rate > 60; Glucose Random 85 mg/dL (60-115); Potassium 3.5 mmol/L (3.3-5.1); Sodium 141 mmol/L (135-145); Total Protein 6.6 g/dL (6.5-8.0)
[2025-01-23 05:02] LABS: B Type Natriuretic Peptide 103 pg/mL (<100)
[2025-01-23 05:03] LABS: Troponin-I High Sensitivity 4.2 ng/L (<3.5-35.0)
[2025-01-23 05:35] LABS: Influenza A PCR NEGATIVE (Negative); Influenza B PCR NEGATIVE (Negative); Resp Syncy Virus RNA Qual PCR NEGATIVE (Negative); SARS COV2 PCR INHOUSE NEGATIVE (Negative)
[2025-01-23 06:36] VITALS: BP 168/100; PULSE 92; RESP 16; TEMP 36.9; O2SAT 95
--- NOTE | 2025-01-23 07:20 | ED.FEVER ---
HPI - Fever General Chief Complaint: Fever Stated Complaint: Fever Time Seen by Provider: 01/23/25 06:58 Source: patient Mode of arrival: ambulatory Limitations: no limitations History of Present Illness HPI Narrative: this is a pleasant 69 years old male presented to emergency department because this morning check his temperature he had a fever of 101. Denies any abdominal pain denies any dysuria denies any cough congestion he is ambulatory to the emergency department he has a history of pneumonia in the past he is worried that he may have pneumonia. MD elicited complaint: fever Onset (ago): hour(s) (3) Exacerbating factors: nothing Relieving factors: nothing Associated symptoms: denies other symptoms Treatments prior to arrival fever: acetaminophen Related Data Home Medications ?Medication ?Instructions ?Recorded ?Confirmed hydroxychloroquine 200 mg tablet 200 mg PO BID 03/14/23 01/02/25 multivitamin 1 tab PO DAILY 03/21/23 01/02/25 acetaminophen 325 mg tablet 650 mg PO Q4H PRN Pain 12/11/24 01/02/25 (Tylenol) bisacodyl 5 mg tablet,delayed 10 mg PO BEDTIME PRN Constipation 12/11/24 01/02/25 release (Dulcolax (bisacodyl)) esomeprazole magnesium 40 mg 40 mg PO DAILY@1630 12/11/24 01/02/25 capsule,delayed release lactobacillus combination no.4 3 3,000 mmu cells PO DAILY 12/11/24 01/02/25 billion cell capsule (Probiotic) albuterol sulfate 90 mcg/actuation 2 puff inhalation Q6H PRN dyspnea 01/02/25 01/02/25 aerosol inhaler aspirin-caffeine 500 mg-32.5 mg 1 tab PO Q6H PRN Pain 01/02/25 01/02/25 tablet (Gary Back and Body) Previous Rx's ?Medication ?Instructions ?Recorded walker #1 ea 06/24/24 aspirin 81 mg tablet,delayed 81 mg PO DAILY #30 tabs 01/06/25 release atorvastatin 80 mg tablet 80 mg PO BEDTIME #30 tabs 01/06/25 ceftriaxone 1 gram solution for 1 g IVPUSH Q24H #1 ea 01/06/25 injection doxycycline hyclate 100 mg 100 mg IV Q12H #5 ea 01/06/25 intravenous powder for solution (Doxy-100) isosorbide mononitrate 30 mg 30 mg PO DAILY #30 tabs 01/06/25 tablet,extended release 24 hr metoprolol tartrate 50 mg tablet 50 mg PO BID #60 tabs 01/06/25 omeprazole 40 mg capsule,delayed 40 mg PO DAILY@0630 #30 caps 01/06/25 release amoxicillin 500 mg tablet 500 mg PO Q8H #21 tabs 01/23/25 Allergies Allergy/AdvReac Type Severity Reaction Status Date / Time ibuprofen Allergy Mild tongue Verified 01/23/25 04:17 swelling Review of Systems Constitutional: Constitutional: Reports no additional constitutional complaints and Reports fever(s) Cardiovascular: Cardiovascular: Denies chest pain PMFSH Past Medical History Attestation statement: The following information was validated with the patient. Medical History Emphysema lung Pneumonia involving left lung Personal history of nicotine dependence COPD (chronic obstructive pulmonary disease) Benign paroxysmal positional vertigo Tubular adenoma Lupus Pancreatic insufficiency Tubulovillous adenoma GERD (gastroesophageal reflux disease) HTN (hypertension) Surgical History Hx of tonsillectomy History of vasectomy History of colonoscopy History of left inguinal hernia repair History of esophagogastroduodenoscopy (EGD) Family History Family History Father HTN (hypertension) Mother Cancer Sister Cancer Social History Social History Household Members: Spouse Housing: House Do you presently have visiting nurse or other home services: No Alcohol intake: never Patient Tobacco Use Status: Former Tobacco user Smoked in Last 30 Days: No e-Cigarette/Vaping Use: Never Used Second Hand Smoke Exposure: No Use of substances other than those prescribed or required for medical reasons: No Advance Directives: Yes Advance Directives on File: Yes Advance Directives Date on File: 03/16/23 service: No Physical Exam Vital Signs: Vital Signs: Last Vital Signs Temp 98.5 F 01/23/25 08:17 Pulse 77 01/23/25 08:17 Resp 18 01/23/25 08:17 BP 132/74 01/23/25 08:17 Pulse Ox 96 01/23/25 08:17 O2 Del Method Room Air 01/23/25 08:17 BMI result Body Mass Index 26.6 Const: Other: Patient looks well is not toxic-appearing comfortable in the stretcher General: cooperative and healthy appearing Nutritional Appearance: average body habitus Orientation/consciousness: patient oriented x3 Limitations: no limitations HEENT: Head: Yes normal to inspection Ears: hearing grossly normal bilaterally General nose exam: Normal external nose present Face and sinus: Yes normal facial exam Mouth: Normal oral and palatal mucosa present Throat: Yes posterior oropharynx normal Neck: Neck: Yes normal visual inspection Resp: Effort & Inspection: normal respiratory effort Auscultation: rhonchi Cardio: Jugular venous distension: no JVD Rate: regular rate Rhythm: regular rhythm GI: Inspection: Yes normal to inspection Palpation (GI): Soft to palpation Auscultation: normal bowel sounds Skin: General skin exam: no rashes or lesions noted and elasticity normal Neuro: General: patient oriented x3 Cognition (Neuro): normal cognition Course Reevaluation(s) Reevaluation #1: doing well afebrile CXR possible pneumonia,because reported fever will send home with po AB he is comfortable with the plan Medical Decision Making Medical Decision Making MDM Narrative: patient is here with a fever he has no abdominal pain no dysuria he has a prior history of pneumonia reasonable to check blood work chest x-ray UA Differential Diagnosis Differential Diagnoses: The differential diagnosis associated with the presentation includes viral syndrome versus UTI versus pneumonia Admission/Observation Consideration of admission/observation: Escalation of care including admission/observation considered Lab Data [facility] Lab Attestation statement: I reviewed the patient's lab results. 01/23/25 04:34 01/23/25 04:34 Labs: Lab Results 01/23/25 01/23/25 01/23/25 Range/Units 04:34 04:54 07:28 WBC 12.9 H (4.8-10.8) X10*3/uL RBC 3.69 L (4.60-5.80) X10*6/uL Hgb 12.3 L (14.0-18.0) g/dl Hct 33.5 L (42.0-52.0) % MCV 90.8 (80.0-98.0) fL MCH 33.3 H (27.0-33.0) pg MCHC 36.7 H (31.0-36.0) g/dl RDW 12.3 (11.0-16.0) % Plt Count 209 (160-400) X10*3/uL MPV 8.0 L (9.4-12.4) fL Immature Gran % (Auto) 0.5 H (0.0-0.4) % Neut % (Auto) 85.3 H (45-73) % Lymph % (Auto) 7.0 L (20-40) % [place] % (Auto) 5.8 (2-11) % Eos % (Auto) 0.9 (0-4) % Baso % (Auto) 0.5 (0-2) % Lymph # (Auto) 0.9 L (1.2-4.9) X10*3/uL [place] # (Auto) 0.8 (0.1-1.2) X10*3/uL Eos # (Auto) 0.1 (0.0-0.4) X10*3/uL Baso # (Auto) 0.1 (0.0-0.2) X10*3/uL Abs Immat Gran (auto) 0.06 H (0.00-0.03) X10*3/uL Absolute Neuts (auto) 11.0 H (2.0-8.3) x10*3/uL Absolute Nucleated RBC 0.000 (0.0-0.012) X10*3/uL Nucleated RBC % (auto) 0.0 (0.0-0.2) /100WBC Sodium 141 (135-145) mmol/L Potassium 3.5 (3.3-5.1) mmol/L Chloride 106 (96-108) mmol/L Carbon Dioxide 24 (22-29) mmol/L Anion Gap 15 (12-20) BUN 6 L (9-16) mg/dL Creatinine 0.77 (0.5-1.4) mg/dL Estim Creat Clear Calc 80.5 Estimated GFR > 60 Random Glucose 85 (60-115) mg/dL Calcium 9.3 (8.4-10.2) mg/dL Total Bilirubin 0.9 (0.0-1.0) mg/dL AST 28 (5-37) U/L ALT 33 (0-40) U/L Alkaline Phosphatase 89 (39-117) U/L Troponin I High Sens 4.2 D (<3.5-35.0) ng/L B-Natriuretic Peptide 103 H (<100) pg/mL Total Protein 6.6 (6.5-8.0) g/dL Albumin 4.0 (3.5-5.0) g/dL Hold Yellow Top See Note Urine Color Yellow Urine Appearance Clear Urine pH 6.0 (5.0-9.0) Ur Specific [place] 1.010 (1.005-1.025) Urine Protein Negative (Neg-Trace) mg/dL Urine Glucose (UA) Negative (Negative) mg/dL Urine Ketones Trace (Negative) mg/dL Urine Blood Negative (Negative) Urine Nitrite Negative (Negative) Ur Leukocyte Esterase Trace H (Negative) Urine RBC 0-2 (0-2) /HPF Urine WBC 0-5 (0-5) /HPF Ur Squamous Epith Cells 0-2 (0-2) /HPF Urine Bacteria None Seen (None Seen) Hyaline Casts 0-2 (0-2) /LPF Influenza Type A (PCR) NEGATIVE (Negative) Influenza Type B (PCR) NEGATIVE (Negative) RSV RNA Qual (PCR) NEGATIVE (Negative) SARS-CoV-2 RNA (RT-PCR) NEGATIVE (Negative) Radiology Impression Discussion of test interpretation with radiology: I have reviewed the radiologist's reading. Discharge Plan Discharge Clinical Impression: Recurrent pneumonia Fever Qualifiers: Fever type: unspecified Qualified Code(s): R50.9 - Fever, unspecified Patient Disposition: Home, Self-Care Instructions: Fever in Adults (ED), Pneumonia (ED) Additional Instructions: follow-up with your primary care physician return to the emergency room if you worse Prescriptions: New amoxicillin 500 mg tablet 500 mg PO Q8H Qty: 21 0RF No Action (DME) maeve Coffmanc See Rx Instructions .MEDSUPPLY Qty: 1 0RF Rx Instructions: Harshal Front wheeled maeve albuterol sulfate 90 mcg/actuation HFA aerosol inhaler 2 puff inhalation Q6H PRN (Reason: dyspnea) Gary Back and Body 500-32.5 mg Tablet 1 tab PO Q6H PRN (Reason: Pain) atorvastatin 80 mg Tablet 80 mg PO BEDTIME Qty: 30 0RF isosorbide mononitrate 30 mg Tablet Extended Release 24 Hr 30 mg PO DAILY Qty: 30 0RF Protocol: Hold for SBP< HOLD for SBP < : 90 omeprazole 40 mg Capsule,Delayed Release(Dr/Ec) 40 mg PO DAILY@0630 Qty: 30 0RF aspirin 81 mg Tablet,Delayed Release (Dr/Ec) 81 mg PO DAILY Qty: 30 0RF ceftriaxone 1 gram Recon Soln 1 g IVPUSH Q24H Qty: 1 0RF doxycycline hyclate [Doxy-100] 100 mg Recon Soln 100 mg IV Q12H Qty: 5 0RF metoprolol tartrate 50 mg Tablet 50 mg PO BID Qty: 60 0RF Protocol: Hold for SBP/HR < HOLD for SBP < : 90 HOLD for HR < : 60 hydroxychloroquine 200 mg tablet 200 mg PO BID esomeprazole magnesium 40 mg capsule,delayed release(DR/EC) 40 mg PO DAILY@1630 bisacodyl [Dulcolax (bisacodyl)] 5 mg tablet,delayed release (DR/EC) 10 mg PO BEDTIME PRN (Reason: Constipation) acetaminophen [Tylenol] 325 mg Tablet 650 mg PO Q4H PRN (Reason: Pain) Probiotic 3 billion cell Capsule 3,000 mmu cells PO DAILY Rx Instructions: administer with a meal multivitamin Tablet 1 tab PO DAILY Interventions: ED Discharge Assessment Last Done: 01/23/25 08:17 Discharge Date/Time: 01/23/25 08:18 Print Language: Bulgarian
[2025-01-23 07:42] LABS: Appearance Urine Clear; Color Urine Yellow; Glucose Urine UA Negative (Negative); Leukocyte Esterase Urine Trace (Negative); Nitrite Urine Negative (Negative); UMIC TRIGGER UACC YES; Urine Blood Negative (Negative); Urine Ketones Trace mg/dL (Negative); Urine Protein Negative (Neg-Trace)
[2025-01-23 07:47] LABS: Bacteria Urine None Seen (None Seen); Hyaline Casts Urine 0-2 /LPF (0-2); RBC Urine 0-2 /HPF (0-2); Squamous Epithelial Cell Urine 0-2 /HPF (0-2); WBC Urine 0-5 /HPF (0-5)
[2025-01-23 08:17] VITALS: BP 132/74; PULSE 77; RESP 18; TEMP 36.9; O2SAT 96
== END 2025-01-23 08:18 | disposition home or self-care (01) ==
PROVIDERS: Emergency Provider Emergency Medicine; PCP Internal Medicine
DX: J18.9 Pneumonia, unspecified organism (principal); R50.9 Fever, unspecified; R06.02 Shortness of breath; I45.81 Long QT syndrome; I10 Essential (primary) hypertension; Z03.818 Encounter for observation for suspected exposure to other biological agents ruled out; Z87.891 Personal history of nicotine dependence; Z79.899 Other long term (current) drug therapy
CPT/HCPCS: 0241U; 36415; 71046; 80053; 81001; 83880; 84484; 85025; 93005; 99283; 99284

== ENCOUNTER → 2025-01-23 04:27 | Outpatient (BNV) | payer MEDICARE, SELFPAY | PROVIDERS: Emergency Provider Emergency Medicine; PCP Internal Medicine; Visit Provider Internal Medicine Cardiovascular Disease | DX: I49.1 Atrial premature depolarization (principal); I25.2 Old myocardial infarction | CPT/HCPCS: 93010 ==

== ENCOUNTER 2025-02-22 09:16 | Outpatient (REF) | payer MEDICARE, SELFPAY ==
--- NOTE | ~2025-02-22 | CT_ITS ---
CLINICAL HISTORY: PERSISTENT COUGH CT chest without contrast Comparison: CR - XR CHEST 2V - 01/23/25 04:[address]/MA/SR - CT ANGIO CHEST PE PROTOCOL - 01/03/25 14:50 EDT Findings: Marked improvement in the aeration of the lungs compared to prior study. Specifically, the multifocal areas of consolidation on prior examination are no longer identified. Minor areas of linear scarring or atelectasis are seen. No pleural effusion or pneumothorax. Dense calcification of the aortic root with less pronounced vascular calcification of the remainder of the thoracic aorta. No aneurysmal dilatation is seen. No pathologically enlarged lymph nodes. Continued elevation of the left hemidiaphragm. As on the patient's prior study, subjacent to the elevated left hemidiaphragm are the stomach in the spleen. No discrete diaphragmatic hernia is seen. No free fluid or free air within the upper abdomen. No acute bony abnormality. IMPRESSION: Interval resolution of multifocal areas of consolidation within the lungs seen on prior study. This document has been electronically signed by: Sid Azul MD on 02/25/2025 21:50:32
== END 2025-02-22 09:17 | disposition home or self-care (01) ==
LOC: HO.CT 09:16
PROVIDERS: PCP Internal Medicine; Visit Provider Internal Medicine
DX: R05.3 Chronic cough (principal)
CPT/HCPCS: 71250

== ENCOUNTER → 2025-02-22 09:18 | Outpatient (BNV) | payer MEDICARE, SELFPAY | PROVIDERS: PCP Internal Medicine; Visit Provider Radiology Diagnostic Radiology | DX: R05.3 Chronic cough (principal) | CPT/HCPCS: 71250 ==

== ENCOUNTER 2025-03-05 10:13 | Outpatient (AMB) | payer MEDICARE, SELFPAY ==
[2025-03-05 10:28] VITALS: BP 150/88; PULSE 56; O2SAT 97; BMI 27.3
--- NOTE | 2025-03-05 10:28 | MHC.OFFVIS ---
Vital Signs 03/05/25 10:28 Height 5 ft 6 in Weight 169 lb 4 oz BMI 27.3 BP 150/88 H Blood Pressure Location Lt brachial Position Sitting Pulse 56 Pulse Source Pulse Oximeter Pulse Oximetry (%) 97 Oxygen Delivery Method Room Air Intake Visit Reasons: Pneumonia Allergies ibuprofen Allergy (Mild, Verified 03/05/25 10:31) tongue swelling HPI HPI Pneumonia: Details: Hardy is a pleasant 69 year old male, former 30 pack year smoker, quit 2015, with underlying moderate to severe COPD and lupus on hydroxychloroquine, under the care of rheumatology at [facility]. Patient was last seen in this office in 2022 and presents to reestablish care after recent admissions for recurrent pneumonia. The patient was hospitalized for pneumonia at [facility] from 12/11 to 12/13 and again from 01/02 to 01/06, with the second episode affecting the opposite lung. He reported not feeling fully recovered between episodes and often does not notice symptoms of pneumonia except for fever. During second hospitalization patient treated for acute resp. failure with hypoxia due to RLL pneumonia. Influenza A/B, RSV, [id number] serology negative. The patient was treated with IV fluids, IV abx, steroids and supplemental oxygen, transitioning to oral abx and weaned off of supplemental O2. Of note, during this stay patient developed tachycardia and chest pain, cardiac evaluations including an ultrasound and a CT scan were performed, leading to a catheterization at [facility], which showed no abnormalities. The patient experienced another fever episode on 01/23, which resolved with Tylenol, and a subsequent fever on 01/28, which he managed at home. Most recent CT revealed near complete resolution of multifocal pneumonia. The patient has a history of COPD diagnosed 12-15 years ago, initially mild, but now experiencing increased dyspnea and reduced lung capacity, particularly after recent pneumonia episodes. He reports occasional flare-ups characterized by dry cough and mucus sensation, which are alleviated by tripod breathing. The patient uses albuterol as needed but feels it is ineffective and expresses a need for stronger medication. [facility] Medical History Emphysema lung Pneumonia involving left lung Personal history of nicotine dependence COPD (chronic obstructive pulmonary disease) Benign paroxysmal positional vertigo Tubular adenoma Lupus Pancreatic insufficiency Tubulovillous adenoma GERD (gastroesophageal reflux disease) HTN (hypertension) Surgical History Hx of tonsillectomy History of vasectomy History of colonoscopy History of left inguinal hernia repair History of esophagogastroduodenoscopy (EGD) Family History Father HTN (hypertension) Mother Cancer Sister Cancer Social History Household Members: Spouse Housing: House Do you presently have visiting nurse or other home services: No Alcohol intake: never Patient Tobacco Use Status: Former Tobacco user e-Cigarette/Vaping Use: Never Used Second Hand Smoke Exposure: No Advance Directives Date on File: 03/16/23 service: No Review of Systems Const Denies chills, Denies excessive sweating, Denies fever(s), Denies headache(s) and Denies night sweats Eyes Denies dry eyes, Denies irritation and Denies itchy eyes ENT Reports Normal hearing present, Denies headache(s), Denies nasal congestion, Denies nasal discharge, Denies post nasal drip and Denies sore throat Card Denies chest pain, Denies chest pain at rest, Denies chest pain with activity, Denies claudication, Denies leg edema, Denies orthopnea and Denies paroxysmal nocturnal dyspnea Resp Denies chest congestion, Denies excessive phlegm production, Denies pain on inspiration, Denies pain with cough, Denies stridor and Denies wheezing Musc Denies myalgias Neuro Reports Normal hearing present and Denies headache(s) Endo Denies excessive sweating Edin/Lymph Denies lymphadenopathy Aller/Immun Denies itchy eyes, Denies seasonal rhinorrhea and Denies wheezing Physical Exam Vital Signs: Last Vital Signs Pulse 56 03/05/25 10:28 BP 150/88 H 03/05/25 10:28 Pulse Ox 97 03/05/25 10:28 Oxygen Delivery Method Room Air 03/05/25 10:28 BMI result Body Mass Index 27.3 Const General: cooperative, healthy appearing, comfortable, no acute distress, well developed and alert Orientation/consciousness: patient oriented x3 Limitations: no limitations HEENT Head: Yes normal to inspection, Yes normocephalic and Yes atraumatic Ears: hearing grossly normal bilaterally and external ears normal Eyes General: appearance normal, both eyes and all related structures Eyelids: Yes eyelids normal Sclerae: sclerae normal EOM: EOMs intact bilaterally Neck Neck: Yes normal visual inspection and Yes no lymphadenopathy Lymphatic: no lymphadenopathy noted Chest Chest palpation & inspection: normal inspection of the chest Resp Effort & Inspection: normal respiratory effort, able to speak in complete sentences, no audible wheezes, no cough, no stridor, not tachypneic, no tripod positioning and no use of accessory muscles Auscultation: clear to auscultation bilaterally Cardio Jugular venous distension: no JVD Rate: regular rate Rhythm: regular rhythm Skin Other: warm, dry ecchymotic skin of BUE and BLE Neuro General: patient oriented x3 Cranial nerves: Yes Normal hearing present Cognition (Neuro): normal cognition Gait exam (Neuro): Normal gait present Extrem General: Yes normal to inspection, Yes capillary refill normal, Yes no clubbing, cyanosis or edema and Yes no pedal edema Psych Appearance: grossly normal and well kempt Speech and movement: Normal speech and movement present and Clear speech present Affect: normal affect Attitude: cooperative Thought process: Normal thought process present Thought content: Normal thought content present Insight: Good insight present (Psych) Judgement: Good judgement present (Psych) Results Reviewed Results Reviewed: [place] [id number] CT Scan Report Signed Patient: Hardy Jackson MR#: [id number] : 1955 Acct:[id number] Age/Sex: 69 / M ADM Date: 02/22/25 Loc: HO.CT Attending Dr: Ted Pearl MD Ordering Physician: Ted Pearl MD Date of Service: 02/22/25 Procedure(s): CT chest wo IV con Accession Number(s): [id number] cc: Ted Pearl MD~ Report Number: [id number]: Total DLP = 255.00 mGy-cm CLINICAL HISTORY: PERSISTENT COUGH CT chest without contrast Comparison: CR - XR CHEST 2V - 01/23/25 04:[address]/HI/SR - CT ANGIO CHEST PE PROTOCOL - 01/03/25 14:50 EDT Findings: Marked improvement in the aeration of the lungs compared to prior study. Specifically, the multifocal areas of consolidation on prior examination are no longer identified. Minor areas of linear scarring or atelectasis are seen. No pleural effusion or pneumothorax. Dense calcification of the aortic root with less pronounced vascular calcification of the remainder of the thoracic aorta. No aneurysmal dilatation is seen. No pathologically enlarged lymph nodes. Continued elevation of the left hemidiaphragm. As on the patient's prior study, subjacent to the elevated left hemidiaphragm are the stomach in the spleen. No discrete diaphragmatic hernia is seen. No free fluid or free air within the upper abdomen. No acute bony abnormality. IMPRESSION: Interval resolution of multifocal areas of consolidation within the lungs seen on prior study. 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 The patient is advised to use the inhaler once daily and to rinse his mouth after use to prevent thrush. If Breo is not covered by insurance or is too expensive, the patient is instructed to contact the office for alternatives. May need to consider higher doses vs Trelegy. The patient is also advised to call the office if experiencing fever or chills, as these may indicate a need for further evaluation. Discussed PFT however patient declined. All questions were answered and patient is in agreement of plan. Will follow up in 6-8 weeks or sooner if needed. Medications: New fluticasone furoate-vilanterol 100-25 mcg/dose (Breo Ellipta) 1 inh inhalation DAILY 60 ea 3RF Coding Level of Care Code Est Pt Level 4 (48139) Complex EM visit Add On G2211 Diagnoses COPD (chronic obstructive pulmonary disease) J44.9 Emphysema lung J43.9
--- OUTSIDE RECORDS SUMMARY | 2025-03-05 11:03 | XMS_ITS | Encounter Summary ---
Author Organization [facility] Address [address] [place] [address] [address] [place] [address] Phone Care Team Providers Care Him Director Name Role Phone Ted Pearl MD Primary Care Provider [phone] Sterling Ware MD Unavailable [phone] Tyrel Amaya MD Unavailable [phone] Andrzej Garland MD Unavailable [phone] Encounter Details Date Type Department Care Team (Latest Contact Info) Description 01/05/2024 Ancillary Orders [facility] Rheumatology [address] [place] [address] Edie Pina MD [address] [facility], [address] [place] [address] [email or web address] Lupus erythematosus tumidus (Primary Dx); Long-term use of Plaquenil; Arthritis of knee, right; Arthritis of knee, left; Gastroesophageal reflux disease with esophagitis without hemorrhage; Raynaud's phenomenon without gangrene; Hypervitaminosis D; Exocrine pancreatic insufficiency Social History Tobacco Use Types Packs/Day Years Used Date Smoking Tobacco: Former Cigarettes 2 46.1 1 970 - 09/15/2015 Smokeless Tobacco: Never Alcohol Use Standard Drinks/Week Comments Yes 30 (1 standard drink = 0.6 oz pure alcohol) 4-5/day (noted 07/08/22); 6 beers a night noted 07/13/23 Child or Family Care Answer Date Record ed Do you have problems with on e of the following making it difficult for you to work, study, or receive health care? No 2021 Education Answer Date Recorded Are you interested in more education? Not on brea e 05/30/2023 Are you concerned about learning? Not on file 05/30/2023 No 05/30/2023 No 05/30/2023 Food Answer Date Recorded Within the past 6 months we worried whether our food would run out before we got money to buy more. Never True 2021 Within the past 6 months the food we bought just didn't last and we didn't have enough money to get more. Never True Residential Stability Answer Date Recor ded What is your housing situation today? I have wanda sing 2021 How many times have you move d in the past 12 months? Zero (I did not move) 2021 Paying for Meds Answer Date Recorded Do you have trouble paying for medicines? No 2021 Paying Utility Bills Answer Date Record ed Do you have trouble paying your heating or elect ricity bill? No 2021 Transportation Answer Date Recorded Has the lack of transportati on kept you from medical appointments or from getting medications? Yes 2021 Unemployment Answer Date Recorded Are you currently unemployed or working on a part-time or temporary basis, and looking for work? No 2021 Digital Access Answer Date Recorded No 12/28/2022 No 12/28/2022 Reliable internet access at home? Not on file 12/28/2022 Device with a working camera? Not on file Sex and Gender Information Value Date Recorded Sex Assigned at Not on file Legal Sex Male 9:56 PM EDT Gender Identity Not on file Sexual Orientation Not on file documented as of this encounter Plan of Treatment Upcoming Encounters Date Type Department Care Team (Late st Contact Info) Description 03/17/2025 8:30 AM EDT Office Visit [facility] Rheumatology [address] [place] [address] Edie Pina MD [address] [facility], [address] [place] [address] [email or web address] 03/24/2025 10:00 AM EDT Office Visit [facility] Rheumatology [address] [place] [address] Edie Pina MD [address] [place] [address], [address] [place] [address] [email or web address] 03/31/2025 2:30 PM EDT Office Visit [facility] Rheumatology [address] [place] [address] Edie Pina MD [address] [place] [address], [address] [address] [email or web address] 04/22/2025 9:00 AM EDT Office Visit [facility] Internal Medicine [address] [place] [address] Win Reyes PA-C [address] [place] [address] 06/12/2025 9:00 AM EST Office Visit [facility] Rheumatology [address] [place] [address] [place] [address] Edie Pina MD [address] [place] [address], [address] [address] [email or web address] documented as of this encounter Results * XR KNEE 4 OR MORE VIEWS (BILATERAL) (01/05/2024 12:04 PM EDT) Anatomical Region Laterality Modality Knee Bilateral, Knee Right, Knee Left Computed Radiography 01/07/2024 2:33 AM EDT Impressions 01/07/2024 2:34 AM EDT Right knee tricompartmental osteoarthritis, moderate to severe in the medial and patellofemoral compartments. Left knee tricompartmental osteoarthritis, severe in the medial compartment. Narrative 01/07/2024 2:34 AM EDT XR KNEE 4 OR MORE VIEWS (BILATERAL) Referring clinician's provided indication for this examination in [facility]: Pain; stiffness, worse pain going up the stairs COMPARISON: None FINDINGS: RIGHT KNEE: Knee joint space narrowing with subchondral sclerosis, cystic change, and marginal osteophytes is moderate to severe in the medial, moderate to severe in the patellofemoral, and mild in the lateral compartment. No joint effusion. No acute fracture or dislocation. LEFT KNEE: Knee joint space narrowing with subchondral sclerosis, bony proliferative change, and gqln-nk-wugs contact is severe in the medial, moderate to severe in the patellofemoral, and mild in the lateral compartment. Small joint effusion. No acute fracture or dislocation. Procedure Note Ady Love MD - 01/07/2024 XR KNEE 4 OR MORE VIEWS (BILATERAL) Referring clinician's provided indication for this examination in [facility]:Pain; stiffness, worse pain going up the stairs COMPARISON: None FINDINGS: RIGHT KNEE: Knee joint space narrowing with subchondral sclerosis, cysticchange, and marginal osteophytes is moderate to severe in the medial,moderate to severe in the patellofemoral, and mild in the lateralcompartment. No joint effusion. No acute fracture or dislocation. LEFT KNEE: Knee joint space narrowing with subchondral sclerosis, bonyproliferative change, and jfjg-vd-nzaj contact is severe in the medial,moderate to severe in the patellofemoral, and mild in the lateralcompartment. Small joint effusion. No acute fracture or dislocation. IMPRESSION: Right knee tricompartmental osteoarthritis, moderate to severe in themedial and patellofemoral compartments. Left knee tricompartmental osteoarthritis, severe in the medialcompartment. Edie Pina MD IMG XR LOWER EXTREMITY F inal Result documented in this encounter Visit Diagnoses Diagnosis Arthritis of knee, right Lupus erythematosus tumidus- Primary Long-term use of Plaquenil Arthritis of knee, right Arthritis of knee, left Gastroesophageal reflux disease with esophagitis without hemorrhage Raynaud's phenomenon without gangrene Hypervitaminosis D Exocrine pancreatic insufficiency Other specified disease of pancreas documented in this encounter Additional Health Concerns Infection Onset Date Last Indicated Resolved Time CoV-Risk 11/07/2024 11/07/2024 11/18/2024 1:21 AM EDT Assessment Noted Time PHQ-2 Depression Total Score: 0 07/06/20 23 12:48 PM EST documented as of this encounter Care Teams Him Director Relationship Specialty Start Date End Date Ted Pearl MD [address] [place] [address] PCP - General Internal Medicine 12/18/19 Sterling Ware MD [address] [place] [address] Dermatology 12/20/19 Tyrel Amaya MD [address] [place] [address] [place] [address] Pulmonary Disease 02/17/20 Andrezj Garland MD [address] [place] [address] [place] [address] Ophthalmology 04/07/20 documented as of this encounter Additional Source Comments The information contained in this document represents components of the legal health record. It is not the complete legal health record.[facility]
== END 2025-03-05 11:15 | disposition home or self-care (01) ==
LOC: HO.HPSW 10:14
PROVIDERS: PCP Internal Medicine; Visit Provider Nurse Practitioner Family
DX: J44.9 Chronic obstructive pulmonary disease, unspecified (principal); J43.9 Emphysema, unspecified
CPT/HCPCS: 99214; G2211

== ENCOUNTER → 2025-03-05 10:13 | Outpatient (BNVA) | payer MEDICARE, SELFPAY | PROVIDERS: PCP Internal Medicine; Visit Provider Nurse Practitioner Family | DX: Z09 Encounter for follow-up examination after completed treatment for conditions other than malignant neoplasm (principal); J44.9 Chronic obstructive pulmonary disease, unspecified; J43.9 Emphysema, unspecified; Z87.891 Personal history of nicotine dependence; M32.9 Systemic lupus erythematosus, unspecified | CPT/HCPCS: 99212 ==

== ENCOUNTER 2025-04-30 09:45 | Outpatient (AMB) | payer MEDICARE, SELFPAY ==
[2025-04-30 09:49] VITALS: BP 142/80; PULSE 55; O2SAT 96; BMI 27.2
--- NOTE | 2025-04-30 09:49 | A.OFFVIS_ITS ---
Vital Signs 04/30/25 09:49 Height 5 ft 6 in Weight 168 lb 8 oz BMI 27.2 BP 142/80 H Blood Pressure Location Rt brachial Position Sitting Pulse 55 Pulse Source Pulse Oximeter Pulse Oximetry (%) 96 Oxygen Delivery Method Room Air Intake Visit Reasons: Pneumonia Allergies ibuprofen Allergy (Mild, Verified 04/30/25 09:51) tongue swelling HPI HPI Pneumonia: Details: Hardy is a pleasant 69 year old male, former 30 pack year smoker, quit 2015, with underlying moderate to severe COPD SLE on hydroxychloroquine, under the care of rheumatology at [facility] and h/o Acute respiratory failure with hypoxia secondary to PNA 12/2024. At the last visit patient reported worsening dyspnea after hospitalization as well as increased dry cough. He had been using albuterol MDI PRN with suboptimal effect, ultimately placed on Breo 100 mcg with continued symptoms. He has since been on Breo 200 mcg for the last two weeks with significant improvements in dyspnea and cough. Denies any visits to urgent care hospitalizations related to respiratory distress since last visit. [facility] Medical History Emphysema lung Pneumonia involving left lung Personal history of nicotine dependence COPD (chronic obstructive pulmonary disease) Benign paroxysmal positional vertigo Tubular adenoma Lupus Pancreatic insufficiency Tubulovillous adenoma GERD (gastroesophageal reflux disease) HTN (hypertension) Surgical History Hx of tonsillectomy History of vasectomy History of colonoscopy History of left inguinal hernia repair History of esophagogastroduodenoscopy (EGD) Family History Father HTN (hypertension) Mother Cancer Sister Cancer Social History Household Members: Spouse Housing: House Do you presently have visiting nurse or other home services: No Alcohol intake: never Patient Tobacco Use Status: Former Tobacco user e-Cigarette/Vaping Use: Never Used Second Hand Smoke Exposure: No Advance Directives Date on File: 03/16/23 service: No Review of Systems Const Denies chills, Denies excessive sweating, Denies fever(s), Denies headache(s) and Denies night sweats Eyes Denies dry eyes, Denies irritation and Denies itchy eyes ENT Reports Normal hearing present, Denies headache(s), Denies nasal congestion, Denies nasal discharge, Denies post nasal drip and Denies sore throat Card Denies chest pain, Denies chest pain at rest, Denies chest pain with activity, Denies claudication, Denies leg edema, Denies dyspnea, Denies dyspnea on exertion, Denies orthopnea and Denies paroxysmal nocturnal dyspnea Resp Denies chest congestion, Denies cough, Denies excessive phlegm production, Denies pain on inspiration, Denies pain with cough, Denies dyspnea, Denies dyspnea on exertion, Denies stridor and Denies wheezing Musc Denies myalgias Neuro Reports Normal hearing present and Denies headache(s) Endo Denies excessive sweating Edin/Lymph Denies lymphadenopathy Aller/Immun Denies itchy eyes, Denies seasonal rhinorrhea and Denies wheezing Physical Exam Vital Signs: Last Vital Signs Pulse 55 04/30/25 09:49 BP 142/80 H 04/30/25 09:49 Pulse Ox 96 04/30/25 09:49 Oxygen Delivery Method Room Air 04/30/25 09:49 BMI result Body Mass Index 27.2 Const General: cooperative, healthy appearing, comfortable, no acute distress, well developed and alert Orientation/consciousness: patient oriented x3 Limitations: no limitations HEENT Head: Yes normal to inspection, Yes normocephalic and Yes atraumatic Ears: hearing grossly normal bilaterally and external ears normal Eyes General: appearance normal, both eyes and all related structures Eyelids: Yes eyelids normal Sclerae: sclerae normal EOM: EOMs intact bilaterally Neck Neck: Yes normal visual inspection and Yes no lymphadenopathy Lymphatic: no lymphadenopathy noted Chest Chest palpation & inspection: normal inspection of the chest Resp Effort & Inspection: normal respiratory effort, able to speak in complete sentences, no audible wheezes, no cough, no stridor, not tachypneic, no tripod positioning and no use of accessory muscles Auscultation: clear to auscultation bilaterally Cardio Jugular venous distension: no JVD Rate: regular rate Rhythm: regular rhythm Skin Other: warm, dry ecchymotic skin of BUE and BLE Neuro General: patient oriented x3 Cranial nerves: Yes Normal hearing present Cognition (Neuro): normal cognition Gait exam (Neuro): Normal gait present Extrem General: Yes normal to inspection, Yes capillary refill normal, Yes no clubbing, cyanosis or edema and Yes no pedal edema Psych Appearance: grossly normal and well kempt Speech and movement: Normal speech and movement present and Clear speech present Affect: normal affect Attitude: cooperative Thought process: Normal thought process present Thought content: Normal thought content present Insight: Good insight present (Psych) Judgement: Good judgement present (Psych) Assessment & Plan Assessment & Plan (1) COPD (chronic obstructive pulmonary disease): Code(s): J44.9 - Chronic obstructive pulmonary disease, unspecified Category: Medical (2) Emphysema lung: Code(s): J43.9 - Emphysema, unspecified Category: Medical (3) Elevated diaphragm: Comment: Left Code(s): J98.6 - Disorders of diaphragm Category: Medical (4) Personal history of nicotine dependence: Comment: (Former Smoker, 30+PYH, Quit 2015) Code(s): Z87.891 - Personal history of nicotine dependence Category: Medical Plan At this time Hardy reports good control of respiratory symptoms on current regimen, advised to continue Breo 200 mcg. He is aware to call if symptoms change. Again discussed PFT however patient declined. Prior chest CT 02/2025 revealed resolution of prior pneumonia however there was note of persistent left hemidiaphragm elevation. Will send for sniff test to rule out any phrenic nerve paralysis. Message also sent to GI regarding findings. Given smoking history, will enter a referral for lung screening and will be due for repeat imaging February 2026. All questions were answered and patient is in agreement of plan. Will follow up in 3 months or sooner if needed. Orders: Orders IR fluoroscopy <1hr Today J98.6 - Disorders of diaphragm Referrals Lung Cancer Screening Referral Z87.891 - Personal history of nicotine dependence Coding Level of Care Code Est Pt Level 4 (24536) Diagnoses COPD (chronic obstructive pulmonary disease) J44.9 Emphysema lung J43.9 Elevated diaphragm J98.6 Personal history of nicotine dependence Z87.891
--- OUTSIDE RECORDS SUMMARY | 2025-04-30 11:49 | XMS_ITS | Encounter Summary ---
Author Organization [facility] Address [address] [place] [address] Phone Care Team Providers Care Procurement Agent Name Role Phone Ted Pearl MD Primary Care Provider [phone] Sterling Ware MD Unavailable [phone] Tyrel Amaya MD Unavailable [phone] Andrzej Garland MD Unavailable [phone] Win Reyes PA-C Primary Care Provider [phone] Encounter Details Date Type Department Care Team (Latest Contact Info) Description 01/05/2024 Ancillary Orders [facility] Rheumatology [address] [place] [address] Edie Pina MD [address] [facility], [address] [place] [address] [email or web address] Lupus erythematosus tumidus (Primary Dx); Long-term use [...] Care Team (Late st Contact Info) Description 06/11/2025 7:20 AM EST Office Visit [facility] Internal Medicine [address] [place] [address] Win Reyes PA-C [address] [place] [address] [email or web address] 06/12/2025 9:00 AM EST Office Visit [facility] Rheumatology [address] [place] [address] Edie Pina MD [address] [facility], [address] [place] [address] [email or web address] documented as of this encounter Results [...] clinician's provided indication for this examination in Epic: Pain; stiffness, worse pain going up the [...] with subchondral sclerosis, bony proliferative change, and wdah-iv-reau contact is severe in the medial, moderate to severe in the patellofemoral, and mild in the lateral compartment. Small joint effusion. No acute fracture or dislocation. Procedure Note Ady Love MD - 01/07/2024 XR KNEE 4 OR MORE VIEWS (BILATERAL) Referring clinician's provided indication for this examination in Epic:Pain; stiffness, worse pain going up the stairs COMPARISON: None FINDINGS: RIGHT KNEE: Knee joint space narrowing with subchondral sclerosis, cysticchange, and marginal osteophytes is moderate to severe in the medial,moderate to severe in the patellofemoral, and mild in the lateralcompartment. No joint effusion. No acute fracture or dislocation. LEFT KNEE: Knee joint space narrowing with subchondral sclerosis, bonyproliferative change, and crwo-yf-hina contact is severe in the medial,moderate to severe in the patellofemoral, and mild in the lateralcompartment. Small joint effusion. No acute fracture or dislocation. IMPRESSION: Right knee tricompartmental osteoarthritis, moderate to severe in themedial and patellofemoral compartments. Left knee tricompartmental osteoarthritis, severe in the medialcompartment. us Edie Pina MD IMG XR LOWER EXTREMITY [...] documented as of this encounter Care Teams Procurement Agent Relationship Specialty Start Date End Date Ted Pearl MD [address] [place] [address] PCP - General Internal Medicine 12/18/19 04/21/25 Win Reyes PA-C [address] [place] [address] PCP - General Physician Road Passenger Firer 04/22/25 Sterling Ware MD [address] [place] [address] [email or web address] Dermatology 12/20/19 Tyrel Amaya MD [address] [place] [address] [place] [address] Pulmonary Disease 02/17/20 Andrzej Garland MD [address] [place] [address] [place] [address] Ophthalmology 04/07/20 documented as of this encounter Additional Source Comments The information contained in this document represents components of the legal health record. It is not the complete legal health record.[facility]
--- OUTSIDE RECORDS SUMMARY | 2025-04-30 11:49 | XMS_ITS | Encounter Summary ---
Author Organization [facility] Address [address] [address] Phone Care Team Providers Care First Aid Attendant Name Role Phone Ted Pearl MD Primary Care Provider [phone] Sterling Ware MD Unavailable [phone] Tyrel Amaya MD Unavailable [phone] Andrzej Garland MD Unavailable [phone] Win Reyes PA-C Primary Care Provider [phone] Encounter Details Date Type Department Care Team (Late st Contact Info) Description 07/08/2022 Procedure [facility], Ct Scan - [address] [address] Social History Tobacco Use Types Packs/Day Years Used Date Smoking Tobacco: Former Cigarettes 2 46.1 1 970 - 09/15/2015 Smokeless Tobacco: Never Alcohol Use Standard Drinks/Week Comments Yes 30 (1 standard drink = 0.6 oz pu re alcohol) 4-5/day (noted 07/08/22) Child or Family Care Answer Date Record ed Do you have problems with on e of the following making it difficult for you to work, study, or receive health care? No 2021 Education Answer Date Recorded Are you interested in help w ith more adult education (for example, completing high school, GED, job training, learning the Greek language, technical skills, or developing parenting skills)? No 2021 Food Answer Date Recorded Within the past [...] your housing situation today? I have wanda lopez 2021 How many times have you move [...] basis, and looking for work? No 2021 Sex and Gender Information Value Date Recorded Sex Assigned at Not on file Legal Sex Male 9:56 PM EDT Gender Identity Not on file Sexual Orientation Not on file documented as of this encounter Plan of Treatment Upcoming Encounters Date Type Department Care Team (Late st Contact Info) Description 06/11/2025 7:20 AM EST Office Visit [facility] Internal Medicine [address] [place] [address] Win Reyes PA-C [address] [place] [address] 06/12/2025 9:00 AM EST Office Visit [facility] Rheumatology [address] [place] [address] Edie Pina MD [address] [facility], [address] [place] [address] [email or web address] documented as of this encounter Visit Diagnoses Not on filedocumented in this encounter Additional Health Concerns Infection Onset Date Last Indicated Resolved Time COVID-19 09/19/2023 09/19/2023 10/10/2023 1:2 1 AM EST CoV-Risk 11/07/2024 11/07/2024 11/18/2024 1:21 AM EDT Assessment Noted Time PHQ-2 Depression Total Score: 0 07/08/20 8:55 AM EST documented as of this encounter Care Teams First Aid Attendant Relationship Specialty Start Date End Date Ted Pearl MD [address] [place] [address] PCP - General Internal Medicine 12/18/19 04/21/25 Win Reyes PA-C [address] [place] [address] PCP - General Physician Straw Boss 04/22/25 Sterling Ware MD [address] [place] [address] Dermatology 12/20/19 Tyrel Amaya MD [address] [place] [address] [place] [address] Pulmonary Disease 02/17/20 Andrzej Garland MD [address] [place] [address] [place] [address] Ophthalmology 04/07/20 documented as of this encounter Additional Source Comments The information contained in this document represents components of the legal health record. It is not the complete legal health record.[facility]
--- OUTSIDE RECORDS SUMMARY | 2025-04-30 11:49 | XMS_ITS | Encounter Summary ---
Author Organization [facility] Address [address] [place] [address] Phone Care Team Providers Care Review Assistant Name Role Phone Ted Pearl MD Primary Care Provider [phone] Ted Pearl MD Unavailable [phone] Etienne Lindsey MD Unavailable Ted Pearl MD Unavailable [phone] Ted Pearl MD Primary Care Provider [phone] Sterling Ware MD Unavailable [phone] Tyrel Amaya MD Unavailable [phone] Andrzej Garland MD Unavailable [phone] Win Reyes PA-C Primary Care Provider [phone] Encounter Details Date Type Department Care Team (Latest Contact Info) Description 01/22/2018 Transcribe Orders [facility] [address] [place] [address] Anais Goncalves, PUBLIC SAFETY TEACHER [address] [place] [address] [email or web address] Fever, unspecified fever cause (Primary Dx) Social History Tobacco Use Types Packs/Day Years Used Date Smoking Tobacco: Former Cigarettes 2 38 0 09/15/1977 - 09/15/2015 Smokeless Tobacco: Never Alcohol Use Standard Drinks/Week Comments Yes 30 (1 standard drink = 0.6 oz pu re alcohol) 6 pack/day Sex and Gender Information Value Date Recorded Sex Assigned at Not on file Legal Sex Male 9:56 PM EDT Gender Identity Not on file Sexual Orientation Not on file documented as of this encounter Plan of Treatment Upcoming Encounters Date Type Department Care Team (Late st Contact Info) Description 06/11/2025 7:20 AM EST Office Visit [facility] Internal Medicine [address] [place] [address] Win Reyes PA-C [address] [place] [address] [email or web address] 06/12/2025 9:00 AM EST Office Visit [facility] Rheumatology [address] [place] [address] Edie Pina MD [address] [place] [address], [address] [place] [address] [email or web address] documented as of this encounter Visit Diagnoses Diagnosis Fever, unspecified fever cause- Primary documented in this encounter Additional Health Concerns Infection Onset Date Last Indicated Resolved Time CoV-Risk 12/23/2019 12/23/2019 01/06/2020 1:24 AM EDT COVID-19 09/19/2023 09/19/2023 10/10/2023 1:21 AM EST CoV-Risk 11/07/2024 11/07/2024 11/18/2024 1:21 AM EDT documented as of this encounter Care Teams Review Assistant Relationship Specialty Start Date End Date Ted Pearl MD [address] [place] [address] PCP - General Internal Medicine 09/05/17 12/17/19 Ted Pearl MD [address] [place] [address] PCP - General Internal Medicine 12/18/19 04/21/25 Win Reyes PA-C [address] [place] [address] [email or web address] PCP - General Physician Director Of Employer Services 04/22/25 Ted Pearl MD [address] [place] [address] [email or web address] Insurance Assigned Provider 12/08/18 05/18/19 Etienne Lindsey MD [address] [place] [address] [email or web address] Insurance Assigned Provider 05/18/19 06/08/19 Ted Pearl MD [address] [place] [address] [email or web address] Insurance Assigned Provider 06/08/19 10/11/19 Sterling Ware MD [address] [place] [address] [email or web address] Dermatology 12/20/19 Tyrel Amaya MD [address] [place] [address] [place] [address] Pulmonary Disease 02/17/20 Andrzej Garland MD [address] [place] [address] [place] [address] Ophthalmology 04/07/20 documented as of this encounter Additional Source Comments The information contained in this document represents components of the legal health record. It is not the complete legal health record.[facility]
--- OUTSIDE RECORDS SUMMARY | 2025-04-30 11:49 | XMS_ITS | Encounter Summary ---
Author Organization [facility] Address [address] [place] [address] Phone Care Team Providers Care Second Shift Supervisor Name Role Phone Ted Pearl MD Primary Care Provider [phone] Sterling Ware MD Unavailable [phone] Tyrel Amaya MD Unavailable [phone] Andrzej Garland MD Unavailable [phone] Win Reyes PA-C Primary Care Provider [phone] Encounter Details Date Type Department Care Team (Late st Contact Info) Description 01/08/2021 Procedure [facility] [address] [place], [place] [id number] Social History Tobacco Use Types Packs/Day Years [...] Description 06/11/2025 7:20 AM EST Office Visit [facility] Internal Medicine [address] [place], [place] [phone] Win Reyes PA-C [address] [place], [place] [phone] 06/12/2025 9:00 AM EST Office Visit [facility] Rheumatology [address] [place] [address] Edie Pina MD [address] [facility], [address] [place] [address] [email or web address] documented as of this encounter Visit Diagnoses Not on filedocumented in this encounter Additional Health Concerns Infection Onset Date Last Indicated Resolved Time COVID-19 09/19/2023 09/19/2023 10/10/2023 1:21 AM EST CoV-Risk 11/07/2024 11/07/2024 11/18/2024 1:21 AM EDT Assessment Noted Time PHQ-2 Depression Total Score: 0 12/20/19 9:41 AM EDT documented as of this encounter Care Teams Second Shift Supervisor Relationship Specialty Start Date End Date Ted Pearl MD [address] [place] [address] [email or web address] PCP - General Internal Medicine 12/18/19 04/21/25 Win Reyes PA-C [address] [place] [address] [email or web address] PCP - General Physician Field Hockey And Lacrosse Coach 04/22/25 Sterling Ware MD [address] [place] [address] [email or web address] Dermatology 12/20/19 Tyrel Amaya MD [address] [place] [address] [place] [address] Pulmonary Disease 02/17/20 Andrzej Garland MD NPI: [id number] [place] [address] [place] [address] Ophthalmology 04/07/20 documented as of this encounter Additional Source Comments The information contained in this document represents components of the legal health record. It is not the complete legal health record.[facility]
--- OUTSIDE RECORDS SUMMARY | 2025-04-30 11:49 | XMS_ITS | Encounter Summary ---
Author Organization [facility] Address [address] [place] [phone] Phone Care Team Providers Care Pasta Press Operator Name Role Phone Ted Pearl MD Primary Care Provider [phone] Sterling Ware MD Unavailable [phone] Tyrel Amaya MD Unavailable [phone] Andrzej Garland MD Unavailable [phone] Win Reyes PA-C Primary Care Provider [phone] Encounter Details Date Type Department Care Team (Latest Contact Info) Description 01/30/2025 Ancillary Orders [facility] Internal Medicine [address] [place], [place] [phone] [email or web address] PA-C [address] [place], [place] [phone] [email or web address] Fever, unspecified (Primary Dx) Social History Tobacco Use Types Packs/Day Years Used Date Smoking Tobacco: Former Cigarettes 2 46.1 1 970 - 09/15/2015 Smokeless Tobacco: Never Alcohol Use Standard Drinks/Week Comments Yes 42 (1 standard drink = 0.6 oz pu re alcohol) 6 beers a night noted 11/07/24 Child or Family Care Answer Date Record ed Do you have problems with on e of the following making it difficult for you to work, study, or receive health care? No 12/13/2024 Education Answer Date Recorded Are you interested in more education? Not on brea e 05/30/2023 Are you concerned about learning? Not on file 05/30/2023 No 05/30/2023 No 05/30/2023 Food Answer Date Recorded Within the past 6 months we worried whether our food would run out before we got money to buy more. Never True 12/13/2024 Within the past 6 months the food we bought just didn't last and we didn't have enough money to get more. Never True Residential Stability Answer Date Recor ded What is your housing situation today? I have wanda sing 12/13/2024 How many times have you move d in the past 12 months? Zero (I did not move) 12/13/2024 Paying for Meds Answer Date Recorded Do you have trouble paying for medicines? No 12/13/2024 Paying Utility Bills Answer Date Record ed Do you have trouble paying your heating or elect ricity bill? No 12/13/2024 Transportation Answer Date Recorded Has the lack of transportati on kept you from medical appointments or from getting medications? No 12/13/2024 Unemployment Answer Date Recorded Are you currently unemployed or working on a part-time or temporary basis, and looking for work? No 2021 Digital Access Answer Date Recorded No 12/13/2024 Yes 12/13/2024 Do you have reliable internet access at home? Ye s 12/13/2024 Do you have a device (e.g., phone, tablet, computer) with a working camera? Yes 12/13/2024 Intimate Partner Violence Answer Date R ecorded Denied Basic Needs Not on file 12/13/2024 In the past 12 months have y ou been in a relationship with a person who hurts, threatens, or tries to control you? No 12/13/2024 Worried food would run out Not on file 12/13 In the past 12 months have y ou been in a relationship with a person who hurts, threatens, or tries to control you? No 12/13/2024 Sex and Gender Information Value Date Recorded Sex Assigned at Not on file Legal Sex Male 9:56 PM EDT Gender Identity Not on file Sexual Orientation Not on file documented as of this encounter Plan of Treatment Upcoming Encounters Date Type Department Care Team (Late st Contact Info) Description 06/11/2025 7:20 AM EST Office Visit [facility] Internal Medicine [address] [place] [address] Win Reyes PA-C [address] [place], [place] [phone] [email or web address] 06/12/2025 9:00 AM EST Office Visit [facility] Rheumatology [address] [place] [address] Edie Pina MD [address] [facility], [address] [place] [address] [email or web address] documented as of this encounter Visit Diagnoses Diagnosis Fever, unspecified- Primary documented in this encounter Additional Health Concerns Assessment Noted Time PHQ-2 Depression Total Score: 0 12/14/19 2:46 PM EDT documented as of this encounter Care Teams Pasta Press Operator Relationship Specialty Start Date End Date Ted Pearl MD [address] [place] [address] [email or web address] PCP - General Internal Medicine 12/18/19 04/21/25 Win Reyes PA-C [address] [place] [address] [email or web address] PCP - General Physician State Farm Agent Team Member 04/22/25 Sterling Ware MD [address] [place] [address] [email or web address] Dermatology 12/20/19 Tyrel Amaya MD [address] [place] [address] [place] [address] Pulmonary Disease 02/17/20 Andrzej Garland MD [address] [place] [address] Dr [place], [place] [address] Ophthalmology 04/07/20 documented as of this encounter Additional Source Comments The information contained in this document represents components of the legal health record. It is not the complete legal health record.[facility]
--- OUTSIDE RECORDS SUMMARY | 2025-04-30 11:49 | XMS_ITS | Clinical Summary ---
Author Organization [facility] Address [address] [place] [id number] Phone Care Team Providers Care Ct Mri Technologist Name Role Phone Sterling Ware MD Unavailable Tyrel Amaya MD Unavailable [phone] Andrzej Garland MD Unavailable Win Reyes PA-C Primary Care Provider [phone] Allergies Active Allergy Reactions Criticality Noted Date Comments Ibuprofen Swelling,Other (See Comments) High 12/27/2016 Other reaction(s): Itchy hands, throat closing Other reaction(s): tongue swelling Levofloxacin Other (See Comments) 11/19/2017 nightmares Lisinopril Cough 12/27/2016 Medications esomeprazole (NEXIUM) 40 MG capsule Take 40 mg by mouth nightly at bedtime. Active LAXATIVE, BISACODYL, 5 mg EC tablet Take 5-10 mg by mouth as needed. As needed 3 Active losartan (COZAAR) 100 MG tabletIndications :Essential hypertension TAKE 1 TABLET DAILY 90 tablet 3 4 Active hydroxychloroquin e (PLAQUENIL) 200 mg tabletIndications :Lupus erythematosus tumidus Take 1 tablet (200 mg total) by mouth 2 (two) times a day. 180 tablet 3 5 Active albuterol 90 mcg/actuation inhaler Inhale 2 puffs into the lungs every 6 (six) hours as needed for shortness of breath/dyspne a. 18 g 3 5 Active pyridoxine, vitamin B6, (B-6) 50 MG tablet Take 50 mg by mouth daily. Active aspirin 81 mg chewable tablet Take 81 mg by mouth daily. Active atenolol (TENORMIN) 50 mg tabletIndications :Benign essential hypertension Take 1 tablet (50 mg total) by mouth every morning. 100 tablet 3 Active atorvastatin (LIPITOR) 80 MG tablet Take 1 tablet (80 mg total) by mouth daily. 30 tablet 2 Active doxycycline hyclate (VIBRAMYCIN) 100 MG capsule Take 1 capsule by mouth 2 (two) times a day. Active BREO ELLIPTA 200-25 mcg/dose inhaler Inhale 1 puff into the lungs daily. Active BREO ELLIPTA 100-25 mcg/dose inhaler Inhale 1 puff into the lungs daily. 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 Avoid falls, injuries and cuts. Monitor for excessive bruising and bleeding. Assessment & Plan (03/24/2025 10:24 AM EDT): Extra caution entertained to secure the clot after today's procedure. Avoid falls, injuries and cuts. Monitor for excessive bruising and bleeding. Assessment & Plan (01/10/2025 8:58 AM EDT): Avoid falls, injuries and cuts. Monitor for excessive bruising and bleeding. On statin therapy 01/10/2025 Assessment & Plan (01/10/2025 8:58 AM EDT): Monitor for muscle tenderness, swelling and weakness Primary osteoarthritis of both knees 05/06/2024 Assessment & Plan (03/17/2025 8:48 AM EDT): Procedure: After an informed oral consent, under sterile conditions using Ethyl chloride spray for local anesthesia I have injected 1st of 3 mg Synvisc vial into Right knee from infero-medial approach uneventfully. Details of post-procedure care were explained to the patient in the office and given in writing. Provider: Edie Pina MD Patient: Hardy Jackson : 1955 Date: 03/17/2025 Assessment & Plan (01/10/2025 9:08 AM EDT): He is getting PRP injections via QC kinetics into his left knee for which he was already offered total knee replacement by the orthopedic surgeon. He is interested in getting Synvisc injection into his right knee.Joint protection, energy conservation. Gentle, regular exercise routine. Avoid falls, injuries, overuse. Keep body weight in ideal range for his height. He may benefit from topical cream such as Arnica, Biofreeze, Aspercreme versus medicated patches such as salonpas, icy hot patch 2-3 times daily and if necessary at bedtime x 3 weeks. Assessment & Plan (09/06/2024 9:26 AM EST): Procedure: After an informed written consent, under sterile conditions using Ethyl chloride spray for local anesthesia I have injected 40 mg Kenalog and 2 cc 1% Lidocaine into Right from infero-medial approach uneventfully. Details of post-procedure care were explained to the patient in the office and given in writing. Provider: Edie Pina MD Patient: Hardy Jackson : 1955 Date: 09/06/2024 Assessment & Plan (05/06/2024 10:44 AM EDT): Procedure: After an informed written consent, under sterile conditions using Ethyl chloride spray for local anesthesia I have injected 40 mg Kenalog and 2 cc 1% Lidocaine into Right from infero-medial approach uneventfully. Details of post-procedure care were explained to the patient in the office and given in writing. Provider: Edie Pina MD Patient: Hardy Jackson : 1955 Date: 05/06/2024 Procedure: After an informed written consent, under sterile conditions using Ethyl chloride spray for local anesthesia I have injected 40 mg Kenalog and 2 cc 1% Lidocaine into Left from infero-medial approach uneventfully. Details of post-procedure care were explained to the patient in the office and given in writing. Provider: Edie Pina MD Patient: Hardy Jackson : 1955 Date: 05/06/2024 Hypervitaminosis D 01/05/2024 Assessment & Plan (05/06/2024 10:49 AM EDT): Check serum level Assessment & Plan (01/05/2024 11:42 AM EDT): Hold vit D 5000 units 5-7 days & check serum level Exocrine pancreatic insufficiency 08/11/2022 Assessment & Plan (05/07/2024 9:42 AM EDT): Continue Creon as prescribed by blueprint blocker. Follow-up as scheduled. Assessment & Plan (01/05/2024 11:05 AM EDT): Continue Creon as prescribed by blueprint blocker. Get colonoscopy as scheduled on 10/11/2022 to make sure that last year tubulovillous polyp has not returned. Assessment & Plan (12/14/2022 9:04 AM EDT): Continue Creon as prescribed by blueprint blocker. Get colonoscopy as scheduled on 10/11/2022 to make sure that last year tubulovillous polyp has not returned. Assessment & Plan (08/13/2022 5:10 PM EST): Continue Creon as prescribed by blueprint blocker. Get colonoscopy as scheduled on 10/11/2022 to make sure that last year tubulovillous polyp has not returned. Arthritis of knee, left 04/13/2022 Assessment & Plan (01/07/2024 5:03 PM EDT): Continue joint protection, energy conservation. Gentle, regular exercise routine after warm pack or warm shower. Avoid falls, injuries, overuse. Keep body weight in ideal range for his height. He may benefit from topical cream such as Arnica, Biofreeze, Aspercreme versus medicated patches such as salonpas, icy hot patch 2-3 times daily and if necessary at bedtime x 3 weeks. He expresses interest in meeting with orthopedic surgeon to consider surgical treatment as indicated due to failing nonpharmacologic strategies as above, simple analgesics, topical and intra-articular modalities. Assessment & Plan (02/01/2023 10:13 AM EDT): Procedure: After an informed oral consent, under sterile conditions using Ethyl chloride spray for local anesthesia I have injected 3rd vial of weekly 16mg SYNVISC into Left knee from infero- medial approach uneventfully. Details of post-procedure care were explained to the patient in the office and given in writing. Provider: Edie Pina MD Patient: Hardy Jackson : 1955 Date: 02/01/2023 OFFICE SUPPLY Assessment & Plan (01/25/2023 10:14 AM EDT): Procedure: After an informed oral consent, under sterile conditions using Ethyl chloride spray for local anesthesia I have injected 1st vial of weekly 16mg SYNVISC into Left knee from infero- medial approach uneventfully. Details of post-procedure care were explained to the patient in the office and given in writing. Provider: Edie Pina MD Patient: Hardy Jackson : 1955 Date: 01/25/2023 OFFICE SUPPLY Assessment & Plan (01/18/2023 10:15 AM EDT): Procedure: After an informed oral consent, under sterile conditions using Ethyl chloride spray for local anesthesia I have injected 1st vial of weekly 16mg SYNVISC into Left knee from infero- medial approach uneventfully. Details of post-procedure care were explained to the patient in the office and given in writing. Provider: Edie Pina MD Patient: Hardy Jackson : 1955 Date: 01/18/2023 OFFICE SUPPLY Assessment & Plan (08/11/2022 8:29 AM EST): Procedure: After an informed oral consent, under sterile conditions using Ethyl chloride spray for local anesthesia I have injected 40 mg DepoMedrol and 2 cc 1% Lidocaine into Left from infero- medial approach uneventfully. Details of post-procedure care were explained to the patient in the office and given in writing. Provider: Edie Pina MD Patient: Hardy Jackson : 1955 Date: 08/11/2022 Joint protection, energy conservation. Gentle, regular exercise routine. Avoid falls, injuries, overuse. Keep body weight in ideal range for his height. Assessment & Plan (04/13/2022 9:32 AM EDT): Procedure: After an informed oral consent, under sterile conditions using Ethyl chloride spray for local anesthesia I have injected 40 mg DepoMedrol and 2 cc 1% Lidocaine into Left from medial approach uneventfully. Details of post-procedure care were explained to the patient in the office and given in writing. Provider: Edie Pina MD Patient: Hardy Jackson : 1955 Date: 04/13/2022 Joint protection, energy conservation. Gentle, regular exercise routine. Avoid falls, injuries, overuse. Keep body weight in ideal range for his height. Arthritis of knee, right 04/01/2022 Assessment & Plan (03/31/2025 3:05 PM EDT): Procedure: After an informed oral consent, under sterile conditions using Ethyl chloride spray for local anesthesia I have injected 3rd weekly 16 mg Synvisc into Right knee from infero- medial approach uneventfully. Details of post-procedure care were explained to the patient in the office and given in writing. OFFICE SUPPLY Provider: Edie Pina MD Patient: Hardy Jackson : 1955 Date: 03/31/2025 Assessment & Plan (03/24/2025 10:14 AM EDT): Procedure: After an informed oral consent, under sterile conditions using Ethyl chloride spray for local anesthesia I have injected 2nd weekly 16 mg Synvisc into Right knee from infero- medial approach uneventfully. Details of post-procedure care were explained to the patient in the office and given in writing. OFFICE SUPPLY Provider: Edie Pina MD Patient: Hardy Jackson : 1955 Date: 03/24/2025 Assessment & Plan (01/05/2024 11:41 AM EDT): Procedure: After an informed written consent, under sterile conditions using Ethyl chloride spray for local anesthesia I have injected 40 mg Kenalog and 2 cc 1% Lidocaine into Right knee from infero- medial approach uneventfully. Details of post-procedure care were explained to the patient in the office and given in writing. Provider: Edie Pina MD Patient: Hardy Jackson : 1955 Date: 01/05/2024 Assessment & Plan (01/18/2023 10:14 AM EDT): Procedure: After an informed oral consent, under sterile conditions using Ethyl chloride spray for local anesthesia I have injected 1st vial of weekly 16mg SYNVISC into Left knee from infero- medial approach uneventfully. Details of post-procedure care were explained to the patient in the office and given in writing. Provider: Edie Pina MD Patient: Hardy Jackson : 1955 Date: 01/18/2023 Assessment & Plan (12/14/2022 9:04 AM EDT): Procedure: After an informed oral consent, under sterile conditions using Ethyl chloride spray for local anesthesia I have injected 40 mg Kenalog and 2 cc 1% Lidocaine into Right knee from infero- -medial approach uneventfully. Details of post-procedure care were explained to the patient in the office and given in writing. 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 Details of post-procedure care were explained to the patient in the office and given in writing. Provider: Edie Pina MD Patient: Hardy Jackson : 1955 Date: 04/01/2022 Long-term use of Plaquenil 12/06/2021 Assessment & Plan (01/10/2025 8:36 AM EDT): Take carefully as prescribed. Arrange for ophthalmologic checkup within 12 months since starting Plaquenil again and follow instructions flow category consultant. Daily sun protection all year round while on Plaquenil. Assessment & Plan (09/06/2024 9:03 AM EST): Take carefully as prescribed. Arrange for ophthalmologic checkup within 12 months since starting Plaquenil again and follow instructions flow category consultant. Daily sun protection all year round while on Plaquenil. Assessment & Plan (05/06/2024 10:49 AM EDT): Take carefully as prescribed. Arrange for ophthalmologic checkup within 12 months since starting Plaquenil again and follow instructions flow category consultant. Daily sun protection all year round while on Plaquenil. Assessment & Plan (01/05/2024 11:05 AM EDT): Take carefully as prescribed. Arrange for ophthalmologic checkup within 12 months since starting Plaquenil again and follow instructions flow category consultant. Daily sun protection all year round while on Plaquenil. Assessment & Plan (12/14/2022 9:05 AM EDT): Take carefully as prescribed. Arrange for ophthalmologic checkup within 12 months since starting Plaquenil again and follow instructions flow category consultant. Daily sun protection all year round while on Plaquenil. Assessment & Plan (08/11/2022 8:11 AM EST): Take carefully as prescribed. Arrange for ophthalmologic checkup within 12 months since starting Plaquenil again and follow instructions flow category consultant. Daily sun protection all year round while on Plaquenil. Assessment & Plan (04/13/2022 10:02 AM EDT): Take carefully as prescribed. Arrange for ophthalmologic checkup within 12 months since starting Plaquenil again and follow instructions flow category consultant. Daily sun protection all year round while on Plaquenil. Assessment & Plan (12/19/2021 5:12 PM EDT): Take carefully as prescribed. Arrange for ophthalmologic checkup within 12 months since starting Plaquenil again and follow instructions flow category consultant. Daily sun protection all year round while on Plaquenil. Lupus erythematosus tumidus 09/09/2021 Assessment & Plan (03/31/2025 3:05 PM EDT): I have reviewed with patient that almost 98-99% of patients with lupus erythematosus tumidus do not have inner organ involvements that occurs with systemic lupus erythematosus and treatment is geared toward controlling skin disease. Due to his coexistent dryness in eyes and mouth during the nighttime mostly in addition to Raynaud's phenomenon I took the liberty of getting more specific tests for Sjogren's syndrome and systemic lupus erythematosus. Labs returned negative for Sjogren's antibodies and only mildly positive for RICHARD in a speckled pattern at 1: 80. I do not have a prior readings for comparison. It is mild within the lab error. Periodic monitoring indicated. He started Plaquenil 200 mg daily in September and denies any side effects. To shorten time for full effect I am asking him to carefully increase the dose to 200 mg twice daily. Call if problems otherwise return in 4 months. Another option may be CellCept or less likely Imuran. There are no clear reports in literature that I could find on newer biologic modifying therapy role in tumid lupus such as Benlysta (belimumab) or Saphnelo (anifrolumab) that are useful and FDA approved for patients with systemic lupus erythematosus. He may benefit from combined dermatology/rheumatology consult at [facility] with Dr. Luly Fisher Assessment & Plan (03/24/2025 10:05 AM EDT): I have reviewed with patient that almost 98-99% of patients with lupus erythematosus tumidus do not have inner organ involvements that occurs with systemic lupus erythematosus and treatment is geared toward controlling skin disease. Due to his coexistent dryness in eyes and mouth during the nighttime mostly in addition to Raynaud's phenomenon I took the liberty of getting more specific tests for Sjogren's syndrome and systemic lupus erythematosus. Labs returned negative for Sjogren's antibodies and only mildly positive for RICHARD in a speckled pattern at 1: 80. I do not have a prior readings for comparison. It is mild within the lab error. Periodic monitoring indicated. He started Plaquenil 200 mg daily in September and denies any side effects. To shorten time for full effect I am asking him to carefully increase the dose to 200 mg twice daily. Call if problems otherwise return in 4 months. Another option may be CellCept or less likely Imuran. There are no clear reports in literature that I could find on newer biologic modifying therapy role in tumid lupus such as Benlysta (belimumab) or Saphnelo (anifrolumab) that are useful and FDA approved for patients with systemic lupus erythematosus. He may benefit from combined dermatology/rheumatology consult at [facility] with Dr. Luly Fisher Assessment & Plan (03/17/2025 8:58 AM EDT): I have reviewed with patient that almost 98-99% of patients with lupus erythematosus tumidus do not have inner organ involvements that occurs with systemic lupus erythematosus and treatment is geared toward controlling skin disease. Due to his coexistent dryness in eyes and mouth during the nighttime mostly in addition to Raynaud's phenomenon I took the liberty of getting more specific tests for Sjogren's syndrome and systemic lupus erythematosus. Labs returned negative for Sjogren's antibodies and only mildly positive for RICHARD in a speckled pattern at 1: 80. I do not have a prior readings for comparison. It is mild within the lab error. Periodic monitoring indicated. He started Plaquenil 200 mg daily in September and denies any side effects. To shorten time for full effect I am asking him to carefully increase the dose to 200 mg twice daily. Call if problems otherwise return in 4 months. Another option may be CellCept or less likely Imuran. There are no clear reports in literature that I could find on newer biologic modifying therapy role in tumid lupus such as Benlysta (belimumab) or Saphnelo (anifrolumab) that are useful and FDA approved for patients with systemic lupus erythematosus. He may benefit from combined dermatology/rheumatology consult at [facility] with Dr. Luly Fisher Assessment & Plan (01/10/2025 8:36 AM EDT): I have reviewed with patient that almost 98-99% of patients with lupus erythematosus tumidus do not have inner organ involvements that occurs with systemic lupus erythematosus and treatment is geared toward controlling skin disease. Due to his coexistent dryness in eyes and mouth during the nighttime mostly in addition to Raynaud's phenomenon I took the liberty of getting more specific tests for Sjogren's syndrome and systemic lupus erythematosus. Labs returned negative for Sjogren's antibodies and only mildly positive for RICHARD in a speckled pattern at 1: 80. I do not have a prior readings for comparison. It is mild within the lab error. Periodic monitoring indicated. He started Plaquenil 200 mg daily in September and denies any side effects. To shorten time for full effect I am asking him to carefully increase the dose to 200 mg twice daily. Call if problems otherwise return in 4 months. Another option may be CellCept or less likely Imuran. There are no clear reports in literature that I could find on newer biologic modifying therapy role in tumid lupus such as Benlysta (belimumab) or Saphnelo (anifrolumab) that are useful and FDA approved for patients with systemic lupus erythematosus. He may benefit from combined dermatology/rheumatology consult at [facility] with Dr. Luly Fisher Assessment & Plan (09/06/2024 9:03 AM EST): I have reviewed with patient that almost 98-99% of patients with lupus erythematosus tumidus do not have inner organ involvements that occurs with systemic lupus erythematosus and treatment is geared toward controlling skin disease. Due to his coexistent dryness in eyes and mouth during the nighttime mostly in addition to Raynaud's phenomenon I took the liberty of getting more specific tests for Sjogren's syndrome and systemic lupus erythematosus. Labs returned negative for Sjogren's antibodies and only mildly positive for RICHARD in a speckled pattern at 1: 80. I do not have a prior readings for comparison. It is mild within the lab error. Periodic monitoring indicated. He started Plaquenil 200 mg daily in September and denies any side effects. To shorten time for full effect I am asking him to carefully increase the dose to 200 mg twice daily. Call if problems otherwise return in 4 months. Another option may be CellCept or less likely Imuran. There are no clear reports in literature that I could find on newer biologic modifying therapy role in tumid lupus such as Benlysta (belimumab) or Saphnelo (anifrolumab) that are useful and FDA approved for patients with systemic lupus erythematosus. He may benefit from combined dermatology/rheumatology consult at [facility] with Dr. Luly Fisher Assessment & Plan (05/06/2024 10:49 AM EDT): I have reviewed with patient that almost 98-99% of patients with lupus erythematosus tumidus do not have inner organ involvements that occurs with systemic lupus erythematosus and treatment is geared toward controlling skin disease. Due to his coexistent dryness in eyes and mouth during the nighttime mostly in addition to Raynaud's phenomenon I took the liberty of getting more specific tests for Sjogren's syndrome and systemic lupus erythematosus. Labs returned negative for Sjogren's antibodies and only mildly positive for RICHARD in a speckled pattern at 1: 80. I do not have a prior readings for comparison. It is mild within the lab error. Periodic monitoring indicated. He started Plaquenil 200 mg daily in September and denies any side effects. To shorten time for full effect I am asking him to carefully increase the dose to 200 mg twice daily. Call if problems otherwise return in 4 months. Another option may be CellCept or less likely Imuran. There are no clear reports in literature that I could find on newer biologic modifying therapy role in tumid lupus such as Benlysta (belimumab) or Saphnelo (anifrolumab) that are useful and FDA approved for patients with systemic lupus erythematosus. He may benefit from combined dermatology/rheumatology consult at [facility] with Dr. Luly Fisher Assessment & Plan (01/05/2024 11:05 AM EDT): I have reviewed with patient that almost 98-99% of patients with lupus erythematosus tumidus do not have inner organ involvements that occurs with systemic lupus erythematosus and treatment is geared toward controlling skin disease. Due to his coexistent dryness in eyes and mouth during the nighttime mostly in addition to Raynaud's phenomenon I took the liberty of getting more specific tests for Sjogren's syndrome and systemic lupus erythematosus. Labs returned negative for Sjogren's antibodies and only mildly positive for RICHARD in a speckled pattern at 1: 80. I do not have a prior readings for comparison. It is mild within the lab error. Periodic monitoring indicated. He started Plaquenil 200 mg daily in September and denies any side effects. To shorten time for full effect I am asking him to carefully increase the dose to 200 mg twice daily. Call if problems otherwise return in 4 months. Another option may be CellCept or less likely Imuran. There are no clear reports in literature that I could find on newer biologic modifying therapy role in tumid lupus such as Benlysta (belimumab) or Saphnelo (anifrolumab) that are useful and FDA approved for patients with systemic lupus erythematosus. He may benefit from combined dermatology/rheumatology consult at [facility] with Dr. Luly Fisher Assessment & Plan (02/01/2023 10:04 AM EDT): I have reviewed with patient that almost 98-99% of patients with lupus erythematosus tumidus do not have inner organ involvements that occurs with systemic lupus erythematosus and treatment is geared toward controlling skin disease. Due to his coexistent dryness in eyes and mouth during the nighttime mostly in addition to Raynaud's phenomenon I took the liberty of getting more specific tests for Sjogren's syndrome and systemic lupus erythematosus. Labs returned negative for Sjogren's antibodies and only mildly positive for RICHARD in a speckled pattern at 1: 80. I do not have a prior readings for comparison. It is mild within the lab error. Periodic monitoring indicated. He started Plaquenil 200 mg daily in September and denies any side effects. To shorten time for full effect I am asking him to carefully increase the dose to 200 mg twice daily. Call if problems otherwise return in 4 months. Another option may be CellCept or less likely Imuran. There are no clear reports in literature that I could find on newer biologic modifying therapy role in tumid lupus such as Benlysta (belimumab) or Saphnelo (anifrolumab) that are useful and FDA approved for patients with systemic lupus erythematosus. He may benefit from combined dermatology/rheumatology consult at [facility] with Dr. Luly Fisher Assessment & Plan (01/25/2023 10:07 AM EDT): I have reviewed with patient that almost 98-99% of patients with lupus erythematosus tumidus do not have inner organ involvements that occurs with systemic lupus erythematosus and treatment is geared toward controlling skin disease. Due to his coexistent dryness in eyes and mouth during the nighttime mostly in addition to Raynaud's phenomenon I took the liberty of getting more specific tests for Sjogren's syndrome and systemic lupus erythematosus. Labs returned negative for Sjogren's antibodies and only mildly positive for RICHARD in a speckled pattern at 1: 80. I do not have a prior readings for comparison. It is mild within the lab error. Periodic monitoring indicated. He started Plaquenil 200 mg daily in September and denies any side effects. To shorten time for full effect I am asking him to carefully increase the dose to 200 mg twice daily. Call if problems otherwise return in 4 months. Another option may be CellCept or less likely Imuran. There are no clear reports in literature that I could find on newer biologic modifying therapy role in tumid lupus such as Benlysta (belimumab) or Saphnelo (anifrolumab) that are useful and FDA approved for patients with systemic lupus erythematosus. He may benefit from combined dermatology/rheumatology consult at [facility] with Dr. Luly Fisher Assessment & Plan (02/04/2023 6:08 PM EDT): I have reviewed with patient that almost 98-99% of patients with lupus erythematosus tumidus do not have inner organ involvements that occurs with systemic lupus erythematosus and treatment is geared toward controlling skin disease. Due to his coexistent dryness in eyes and mouth during the nighttime mostly in addition to Raynaud's phenomenon I took the liberty of getting more specific tests for Sjogren's syndrome and systemic lupus erythematosus. Labs returned negative for Sjogren's antibodies and only mildly positive for RICHARD in a speckled pattern at 1: 80. I do not have a prior readings for comparison. It is mild within the lab error. Periodic monitoring indicated. He started Plaquenil 200 mg daily in September and denies any side effects. To shorten time for full effect I have asked him to carefully increase the dose to 200 mg twice daily. He is tolerating it well and finds it helpful and controlling his skin disease. Call if problems . Another option may be CellCept or less likely Imuran. There are no clear reports in literature that I could find on newer biologic modifying therapy role in tumid lupus such as Benlysta (belimumab) or Saphnelo (anifrolumab) that are useful and FDA approved for patients with systemic lupus erythematosus. He may benefit from combined dermatology/rheumatology consult at [facility] with Dr. Luly Fisher if above regimen is insufficient. Assessment & Plan (12/14/2022 9:04 AM EDT): I have reviewed with patient that almost 98-99% of patients with lupus erythematosus tumidus do not have inner organ involvements that occurs with systemic lupus erythematosus and treatment is geared toward controlling skin disease. Due to his coexistent dryness in eyes and mouth during the nighttime mostly in addition to Raynaud's phenomenon I took the liberty of getting more specific tests for Sjogren's syndrome and systemic lupus erythematosus. Labs returned negative for Sjogren's antibodies and only mildly positive for RICHARD in a speckled pattern at 1: 80. I do not have a prior readings for comparison. It is mild within the lab error. Periodic monitoring indicated. He started Plaquenil 200 mg daily in September and denies any side effects. To shorten time for full effect I am asking him to carefully increase the dose to 200 mg twice daily. Call if problems otherwise return in 4 months. Another option may be CellCept or less likely Imuran. There are no clear reports in literature that I could find on newer biologic modifying therapy role in tumid lupus such as Benlysta (belimumab) or Saphnelo (anifrolumab) that are useful and FDA approved for patients with systemic lupus erythematosus. He may benefit from combined dermatology/rheumatology consult at [facility] with Dr. Luly Fisher Assessment & Plan (08/11/2022 8:10 AM EST): I have reviewed with patient that almost 98-99% of patients with lupus erythematosus tumidus do not have inner organ involvements that occurs with systemic lupus erythematosus and treatment is geared toward controlling skin disease. Due to his coexistent dryness in eyes and mouth during the nighttime mostly in addition to Raynaud's phenomenon I took the liberty of getting more specific tests for Sjogren's syndrome and systemic lupus erythematosus. Labs returned negative for Sjogren's antibodies and only mildly positive for RICHARD in a speckled pattern at 1: 80. I do not have a prior readings for comparison. It is mild within the lab error. Periodic monitoring indicated. He started Plaquenil 200 mg daily in September and denies any side effects. To shorten time for full effect I am asking him to carefully increase the dose to 200 mg twice daily. Call if problems otherwise return in 4 months. Another option may be CellCept or less likely Imuran. There are no clear reports in literature that I could find on newer biologic modifying therapy role in tumid lupus such as Benlysta (belimumab) or Saphnelo (anifrolumab) that are useful and FDA approved for patients with systemic lupus erythematosus. He may benefit from combined dermatology/rheumatology consult at [facility] with Dr. Luly Fisher Assessment & Plan (04/01/2022 8:31 AM EDT): I have reviewed with patient that almost 98-99% of patients with lupus erythematosus tumidus do not have inner organ involvements that occurs with systemic lupus erythematosus and treatment is geared toward controlling skin disease. Due to his coexistent dryness in eyes and mouth during the nighttime mostly in addition to Raynaud's phenomenon I took the liberty of getting more specific tests for Sjogren's syndrome and systemic lupus erythematosus. Labs returned negative for Sjogren's antibodies and only mildly positive for RICHARD in a speckled pattern at 1: 80. I do not have a prior readings for comparison. It is mild within the lab error. Periodic monitoring indicated. He started Plaquenil 200 mg daily in September and denies any side effects. To shorten time for full effect I am asking him to carefully increase the dose to 200 mg twice daily. Call if problems otherwise return in 4 months. Another option may be CellCept or less likely Imuran. There are no clear reports in literature that I could find on newer biologic modifying therapy role in tumid lupus such as Benlysta (belimumab) or Saphnelo (anifrolumab) that are useful and FDA approved for patients with systemic lupus erythematosus. He may benefit from combined dermatology/rheumatology consult at [facility] with Dr. Luly Fisher Assessment & Plan (12/19/2021 5:11 PM EDT): I have reviewed with patient that almost 98-99% of patients with lupus erythematosus tumidus do not have inner organ involvements that occurs with systemic lupus erythematosus and treatment is geared toward controlling skin disease. Due to his coexistent dryness in eyes and mouth during the nighttime mostly in addition to Raynaud's phenomenon I took the liberty of getting more specific tests for Sjogren's syndrome and systemic lupus erythematosus. Labs returned negative for Sjogren's antibodies and only mildly positive for RICHARD in a speckled pattern at 1: 80. I do not have a prior readings for comparison. It is mild within the lab error. Periodic monitoring indicated. He started Plaquenil 200 mg daily in September and denies any side effects. To shorten time for full effect I am asking him to carefully increase the dose to 200 mg twice daily. Call if problems otherwise return in 4 months. Another option may be CellCept or less likely Imuran. There are no clear reports in literature that I could find on newer biologic modifying therapy role in tumid lupus such as Benlysta (belimumab) or Saphnelo (anifrolumab) that are useful and FDA approved for patients with systemic lupus erythematosus. He may benefit from combined dermatology/rheumatology consult at [facility] with Dr. Luly Fisher Assessment & Plan (09/09/2021 10:12 PM EST): I have reviewed with patient that almost 98-99% of patients with lupus erythematosus tumidus do not have inner organ involvements that occurs with systemic lupus erythematosus and treatment is geared toward controlling skin disease. Due to his coexistent dryness in eyes and mouth during the nighttime mostly in addition to Raynaud's phenomenon I took the liberty of getting more specific tests for Sjogren's syndrome and systemic lupus erythematosus. Provided there are no abnormalities on ordered blood work I am in favor of making sure that we provide enough time for mainstay of therapy with Plaquenil that I would ask to continue for a good 6 months if no side effects and no improvement or worsening versus intolerance consider combining it with methotrexate if necessary. Due to his beer drinking habit methotrexate may not be the best choice and I have reviewed that with patient. I mentioned that whichever medication we will choose to try he should refrain from alcohol drinking or at least minimize it significantly. Another option may be CellCept or less likely Imuran. There are no clear reports in literature that I could find on newer biologic modifying therapy role in tumid lupus such as Benlysta (belimumab) or Saphnelo (anifrolumab) that are useful and FDA approved for patients with systemic lupus erythematosus. He may benefit from combined dermatology/rheumatology consult at [facility] with Dr. Luly Fisher History of pneumonia 09/09/2021 Assessment & Plan (03/17/2025 8:59 AM EDT): History of multiple bouts of pneumonia within last 3 years. Up-to-date on vaccination status. Due to longstanding history of cigarettes smoking, alcohol abuse and prednisone therapy may be at an increased risk for lung diseases-close monitoring necessary. Assessment & Plan (09/09/2021 8:35 PM EST): History of possible 2 bouts of pneumonia within last 3 years. Up-to-date on vaccination status. Due to longstanding history of cigarettes smoking may be at an increased risk for lung diseases-close monitoring necessary. Vitamin D insufficiency 09/09/2021 Assessment & Plan (08/11/2022 8:12 AM EST): Continue 5000 units vit D daily to bring serum vitamin D level into optimal range: 40-45 ng /ml. Assessment & Plan (04/13/2022 10:02 AM EDT): Continue 5000 units vit D daily to bring serum vitamin D level into optimal range: 40-45 ng /ml. Assessment & Plan (12/06/2021 8:49 AM EDT): Continue 5000 units vit D daily Assessment & Plan (09/09/2021 9:21 PM EST): Serum level requested to make sure that he does not require additional supplementation. Raynaud's phenomenon without gangrene 09/09/2021 Assessment & Plan (05/06/2024 10:49 AM EDT): Keep warm, dress in layers. Optimize stress management strategies. Avoid vasoconstrictors in OTC products for cold/flu and sinus. Assessment & Plan (01/05/2024 11:05 AM EDT): Keep warm, dress in layers. Optimize stress management strategies. Avoid vasoconstrictors in OTC products for cold/flu and sinus. Assessment & Plan (12/14/2022 9:05 AM EDT): Keep warm, dress in layers. Optimize stress management strategies. Avoid vasoconstrictors in OTC products for cold/flu and sinus. Assessment & Plan (08/11/2022 8:12 AM EST): Keep warm, dress in layers. Optimize stress management strategies. Avoid vasoconstrictors in OTC products for cold/flu and sinus. Assessment & Plan (04/01/2022 8:32 AM EDT): Keep warm, dress in layers. Optimize stress management strategies. Avoid vasoconstrictors in OTC products for cold/flu and sinus. Assessment & Plan (12/06/2021 8:49 AM EDT): Keep warm, dress in layers. Optimize stress management strategies. Avoid vasoconstrictors in OTC products for cold/flu and sinus. Assessment & Plan (09/09/2021 9:26 PM EST): Keep warm, dress in layers. Optimize stress management strategies. Avoid vasoconstrictors in OTC products for cold/flu and sinus. Urticaria 12/10/2017 Assessment & Plan (12/10/2017 9:43 PM EDT): Urticaria of unknown origin. Given slight improvement with topical and systemic benadryl, will trial topical steroid application over the weekend. Continue po benadryl. Will f/u if any worsening sx. If no improvement by Monday consider systemic steroid. Discussed derm f/u, prefers to defer until trial of current tx. Defer serum lyme screening (see TE) as denies exposures. Anemia 12/10/2017 Gastroesophageal reflux disease 12/10/2017 Assessment & Plan (01/10/2025 8:36 AM EDT): Carefully continue avoid late, large, spicy meals. Keep headboard elevated at 45 angle for nighttime. Carefully continue Nexium nightly Assessment & Plan (09/06/2024 9:27 AM EST): Carefully continue avoid late, large, spicy meals. Keep headboard elevated at 45 angle for nighttime. Carefully continue Nexium nightly Assessment & Plan (05/06/2024 10:49 AM EDT): Carefully continue avoid late, large, spicy meals. Keep headboard elevated at 45 angle for nighttime. Carefully continue Nexium nightly Assessment & Plan (01/05/2024 11:05 AM EDT): Carefully continue avoid late, large, spicy meals. Keep headboard elevated at 45 angle for nighttime. Carefully continue Nexium nightly Assessment & Plan (04/13/2022 10:02 AM EDT): Carefully continue avoid late, large, spicy meals. Keep headboard elevated at 45 angle for nighttime. Carefully continue Nexium nightly Assessment & Plan (12/06/2021 8:48 AM EDT): Avoid late, large, spicy meals. Keep headboard elevated at 45 angle for nighttime. Assessment & Plan (09/09/2021 8:36 PM EST): Avoid late, large, spicy meals. Keep headboard elevated at 45 angle for nighttime. Schedule upper endoscopy and colonoscopy as planned. Carefully continue Protonix as prescribed and follow closely with prescribing physician. Hyperlipidemia 12/10/2017 Chronic obstructive pulmonary disease 12/08/2017 Assessment & Plan (11/07/2024 8:45 AM EDT): His shortness of breath may be attributed to his COPD, which may possibly be worsening. He is not currently on any long-term management for COPD. An albuterol inhaler has been prescribed for use as needed during episodes of shortness of breath, particularly during long walks or when he is unable to catch his breath. He is advised to discuss the initiation of long-term COPD management with Dr. Pearl during their appointment in December 2024. Benign essential hypertension 12/08/2017 Resolved Problems Problem Noted Date Diagnosed Date Resolved Date Alcohol use disorder 01/10/2025 025 Assessment & Plan (01/10/2025 9:09 AM EDT): I reminded him to keep well-hydrated and continue supplementation of vitamin B6, B1 and magnesium in addition to refraining from excessive alcohol drinking ideally remain alcohol free. GERD (gastroesophageal reflux disease) 08/11/2022 01/05/2024 Assessment & Plan (12/14/2022 9:05 AM EDT): Avoid late, large, spicy meals. Keep headboard elevated at 45 angle for nighttime. Continue Nexium daily Assessment & Plan (08/11/2022 8:11 AM EST): Avoid late, large, spicy meals. Keep headboard elevated at 45 angle for nighttime. Chronic fatigue 09/09/2021 04/22/2025 Assessment & Plan (12/06/2021 8:48 AM EDT): Balance rest and activity. Sleep hygiene. Proper hydration. Daily sun protection. Gentle, regular exercise routine. Keep up-to-date with age-appropriate screenings and preventive strategies. Regular engagement in hobbies/favorite activities. Avoid falls, injuries, overuse, sick contacts. Assessment & Plan (09/09/2021 8:28 PM EST): Balance rest and activity. Sleep hygiene. Proper hydration. Daily sun protection. Gentle, regular exercise routine. Keep up-to-date with age-appropriate screenings and preventive strategies. Regular engagement in hobbies/favorite activities. Avoid falls, injuries, overuse, sick contacts. Acute viral conjunctivitis of right eye 11/05/2018 04/22/2025 Rash and other nonspecific skin eruption 12/25/2017 04/22/2025 Assessment & Plan (12/25/2017 7:29 AM EDT): Await labs. Consider derm eval given persistent changes. Fever 12/10/2017 04/22/2025 Assessment & Plan (01/30/2025 1:10 PM EDT): Patient with 2 admissions to the hospital for recurrent pneumonia each time staying a few days with antibiotics. Patient was seen in the office on 01/24, with with a change in antibiotics from amoxicillin to doxycycline. Since then patient notes that he has continued to spike temperatures as high as 101.5. At this point the fever could be due to recurrent pneumonia versus laceration of his left leg or other underlying causes. His laceration has decreased in surrounding erythema there is no noted discharge there is positive warmth to the area. I have included a picture in the note for viewing. I have also asked Dr. Pearl to come in as Dr. Pearl saw him recently and noted that there was decreased erythema and warmth to the area. At this time he has fever of unknown etiology. He did have a CT scan of the chest that was ordered however this is yet to be completed. - Given his recurrent fevers despite being on antibiotics I will order a stat chest x-ray, CBC, Lyme panel, blood cultures, strep pneumo/ Legionella antigens and a procalcitonin for further investigation. -Patient was advised to continue his doxycycline 100 mg p.o. twice daily -He is to follow-up in 1 week -If his symptoms worsen patient is advised to go to the emergency department -Patient was also advised to call to get his CT chest scheduled for further investigation. Assessment & Plan (11/07/2024 9:43 AM EDT): He reports intermittent fever being managed with Tylenol as well as an intermittent productive cough with occasional brown sputum. He denies any other symptoms other than shortness of breath. Lungs were clear bilaterally, no evidence of crackles. No murmurs noted on exam. Flu/COVID/RSV swab obtained in the office, negative. Will also obtain a chest x-ray to rule out pneumonia. If chest x-ray positive, will initiate antibiotic treatment with azithromycin and doxycycline due to his COPD history. If chest x-ray negative, advised symptomatic treatment without antibiotics to avoid antibiotic resistance. Advised that if symptoms do not improve within the next week or if they worsen, he should let us know. Assessment & Plan (12/25/2017 7:29 AM EDT): As pt stable today, await labs. CXR neg for PNA today. Continue to monitor for any recurrent sx. If elevated temp or chills pt to contact office. Reviewed after- hours contact instructions. Plan r/f to ID per Dr. Pearl. Given recurrent F.O.U. Plan dental eval as indicated re: mouth soreness and recent extensive dental work. Due for colonoscopy. Assessment & Plan (12/10/2017 9:39 PM EDT): Given resolution of sx, discussed planning CXR if sx recur over the weekend. As temp wnl and exam normal today, pt would like to wait for imaging/testing. I am agreeable with this. He agrees to report any recurrence of chills or fever over the weekend. He will take Tylenol, but will notify us of any issues as they occur if necessary. Please rest, continue balanced diet and good hydration. History of smoking 12/10/2017 Assessment & Plan (09/09/2021 8:32 PM EST): Over 62-[id number]-[id number] history of smoking-quit in 2016-great risk factor for multiple lungs diseases--close monitoring necessary. Other pneumonia, unspecified organism 10/16/2017 12/25/2017 Encounters Date Type Department Care Team Description 04/22/2025 9:00 AM EDT Office Visit [facility] [address] [place] [address] Win Reyes, LEE Chronic obstructive pulmonary disease, unspecified COPD type (Primary Dx); Routine general medical examination at a health care facility; Other pneumonia, unspecified organism; Benign essential hypertension; Pure hypercholesterolemia; Gastroesophageal reflux disease with esophagitis without hemorrhage; Lupus erythematosus tumidus; NSTEMI (non-ST elevated myocardial infarction) 03/31/2025 2:30 PM EDT Office Visit [facility] [address] [place] [address] Edie Pina MD Arthritis of knee, right (Primary Dx); 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 [address] [place] [address] Erinn Conte CNP 02/26/2025 Orders Only [facility] [address] [place] [address] Chanell Taylor MD 02/11/2025 Telephone [facility] [address] [place] [address] Chest 02/10/2025 Orders Only [facility] [address] [place] [address] Chanell Taylor MD 02/10/2025 Telephone [facility] [address] [place] [address] Constance Scherer RN Medication Question 02/03/2025 8:56 AM EDT - 02/03/2025 11:59 PM EDT Hospital Encounter [facility], X-Ray - [address] [place] [address] Win Reyes PA-C Discharge Disposition: Home or Self Care 01/31/2025 8:10 AM EDT - 01/31/2025 11:59 PM EDT Hospital Encounter [facility] [address] [place] [address] Wni Reyes PA-C Discharge Disposition: Home or Self Care 01/31/2025 Transcribe Orders [facility] [address] [place] [address] Win Reyes PA-C Fever, unspecified fever cause (Primary Dx) 01/30/2025 11:20 AM EDT Office Visit [facility] [address] [place] [address] Win Reyes PA-C Fever, unspecified fever cause (Primary Dx); Other pneumonia, unspecified organism 01/30/2025 Ancillary Orders [facility] [address] [place] [address] Win Reyes PA-C Fever, unspecified (Primary Dx) 01/30/2025 Telephone [facility] [address] [place] [address] Aislinn Titus RN xray order 01/29/2025 9:23 AM EDT - 01/29/2025 11:59 PM EDT Hospital Encounter [facility] [address] [place] [address] Ted Pearl MD Discharge Disposition: Home or Self Care 01/28/2025 Telephone [facility] [address] [place] [address] Constance Scherer RN Fever from Last 3 Months Immunizations Immunization Administration Dates Next Due COVID-19 (Pre-05/29) Pfizer Vaccine, mRNA, PF 10/24/2020,10/03/2020 INFLUENZA, SPLIT VIRUS, TRIVALENT PF 12/2019,05/11/2017,05/11/2016,04/29,08/23/2012 INFLUENZA, SPLIT VIRUS, TRIV ALENT W/ PRESERVATIVE IM 05/11/2016,04/21/2015,05/15/2013,08/23 Influenza High-Dose Quadriva lent Preservative Free IM 05/06/2022 Influenza High-Dose Trivalen t Preservative Free IM 04/25/2024 Influenza Quadrivalent Adjuv anted Preservative Free IM 05/02/2023,04/23/2021 Influenza Quadrivalent Prese rvative Free IM 06/02/2019,06/01/2018 Influenza, Unspecified Formulation 06/02/2019 Pneumococcal conjugate PCV13 12/20/2019 Pneumococcal polysaccharide PPSV23 02/18/2021, RSV Vaccine (monovalent, adjuvanted) 06/14/2023 Tdap 09/16/2021,09/13/2010 Zoster live 12/27/2016 Zoster recombinant 11/15/2021,09/16/2021 Family History Medical History Relation Comments Cancer Mother Cancer Sister Relation Status Comments Mother Sister Social History Tobacco Use Types Packs/Day Years [...] on file Sexual Orientation Not on file Last Filed Vital Signs Vital Sign Reading Time Taken Comments Blood Pressure 150/90 04/22/2025 9:04 AM EDT Pulse 62 04/22/2025 9:04 AM EDT Temperature 36.3 C (97.3 F) 04/22/2025 9:04 AM EDT Respiratory Rate 17 04/22/2025 9:04 AM EDT Oxygen Saturation 97% 04/22/2025 9:04 AM EDT Inhaled Oxygen Concentration - - Weight 76.2 kg (168 lb) 04/22/2025 9:04 AM EDT Height 169.3 cm (5' 6.65 ) 04/22/2025 9:04 AM ED T Body Mass Index 26.59 04/22/2025 9:04 AM EDT Plan of Treatment Upcoming Encounters Date Type Department Care Team (Late st Contact Info) Description 06/11/2025 7:20 AM EST Office Visit [facility] Internal Medicine [address] [place] [address] Win Reyes PA-C [address] [place] [address] 06/12/2025 9:00 AM EST Office Visit [facility] Rheumatology [address] [place] [address] Edie Pina MD [address] [facility], [address] [place] [address] [email or web address] Maintenance Due Date Last Done Comments COLOGUARD 1999 FOBT 1999 SIGMOIDOSCOPY 1999 VIRTUAL COLONOSCOPY 1999 FIT TEST 05/26/2022 05/26/2021 INFLUENZA VACCINE (#1) 2025 , 05/02/2023, 05/06/2022, Additional history exists COVID-19 VACCINE ( season) 2025 04/25/2024, 05/02/2023, 05/06/2022, Additional history exists BLOOD PRESSURE 10/20/2025 04/22/2025 LUNG CANCER SCREENING (LDCT Only) 01/24/2026 01/24/2025, 08/24/2022, 11/07/2017 CREATININE LEVEL 01/29/2026 01/29/2025, 10/2024, 01/09/2024, Additional history exists POTASSIUM LEVEL 01/29/2026 01/29/2025, 04/0 10/2024, 01/09/2024, Additional history exists DEPRESSION SCREENING 04/15/2026 04/15/2025 LIPID PANEL 01/29/2030 01/29/2025, 11/2023, 07/13/2023, Additional history exists Adult Td,Tdap Booster 09/16/2031 09/16/2021, 011 COLONOSCOPY 02/18/2034 02/19/2024, 02/2023, 10/11/2022, Additional history exists COLORECTAL CANCER SCREENING 02/18/2034 PNEUMOCOCCAL VACCINES (50+ years) Completed 02/18/2021, 12/20/2019, 10/09/2012 ABDOMINAL AORTIC ANEURYSM (AAA) SCREENING Completed 06/01/2021 HEPATITIS C SCREENING Completed 09/15/2021 ZOSTER VACCINES Completed 11/15/2021, 09/07, 12/27/2016 RSV VACCINE Completed 06/14/2023 HEPATITIS A VACCINES Aged Out No long er eligible based on patient's age to complete this topic HIB VACCINES Aged Out No longer eligi ble based on patient's age to complete this topic MENINGOCOCCAL VACCINES (ACWY) Aged Out No longer eligible based on patient's age to complete this topic MENINGOCOCCAL VACCINES (B) Aged Out N o longer eligible based on patient's age to complete this topic Medical Devices Not on file Procedures Procedure Name Priority Date/Time Associated Diagnosis Comments OUTSIDE CT CHEST REPORT ONLY Routine 02/22/2025 6:48 AM EDT XR CHEST PA AND LATERAL 2 VIEWS Routine 02/03/2025 9:02 AM EDT Fever, unspecified fever cause Other pneumonia, unspecified organism LEGIONELLA/S.PNEUMO COMBINATION ANTIGEN TEST Routine 01/31/2025 8:43 AM EDT Fever, unspecified fever cause LYME WESTERN BLOT ONLY Routine 01/31/2025 8:28 AM EDT CBC Routine 01/31/2025 8:28 AM EDT Fever, unspecified fever cause PROCALCITONIN Routine 01/31/2025 8:28 AM EDT Fever, unspecified fever cause LYME SCREEN WITH REFLEX TO WESTERN BLOT, BLOOD Routine 01/31/2025 8:28 AM EDT Fever, unspecified fever cause BLOOD CULTURE, ROUTINE Routine 01/31/2025 8:28 AM EDT Fever, unspecified fever cause XR CHEST Routine 01/30/2025 11:41 AM EDT Fever, unspecified fever cause C-REACTIVE PROTEIN Routine 01/29/2025 9: 23 AM EDT Lupus erythematosus tumidus Long-term use of Plaquenil SEDIMENTATION RATE (ESR) Routine 01/29/2025 9:23 AM EDT Lupus erythematosus tumidus Long-term use of Plaquenil COMPLEMENT C3 Routine 01/29/2025 9:23 AM EDT Lupus erythematosus tumidus Long-term use of Plaquenil COMPLEMENT C4 Routine 01/29/2025 9:23 AM EDT Lupus erythematosus tumidus Long-term use of Plaquenil CPK (CREATINE KINASE) Routine 01/29/2025 9:23 AM EDT Lupus erythematosus tumidus Long-term use of Plaquenil DOUBLE STRANDED DNA ANTIBODIES Routine 01/29/2025 9:23 AM EDT Lupus erythematosus tumidus Long-term use of Plaquenil COMPREHENSIVE METABOLIC PANEL Routine 01/29/2025 9:23 AM EDT Benign essential hypertension CBC AND DIFFERENTIAL Routine 01/29/2025 9:23 AM EDT Benign essential hypertension TSH WITH REFLEX Routine 01/29/2025 9:23 AM EDT Benign essential hypertension LIPID PANEL Routine 01/29/2025 9:23 AM EDT Myocardial injury Benign essential hypertension CT CHEST Routine 01/24/2025 2:37 PM EDT Persistent cough HM COLONOSCOPY FOR RESULT ENTRY ONLY Routine 02/19/2024 HEPATITIS C ANTIBODY, QUALITATIVE Routine 09/15/2021 7:26 AM EST Lupus erythematosus tumidus History of pneumonia Chronic fatigue US ABDOMINAL AORTIC SCREENING Routine 06/01/2021 7:48 AM EDT Screening for abdominal aortic aneurysm HC BLOOD OCCULT FECAL HGB DETER IA QUAL FECES 1-3 Routine 05/26/2021 7:23 PM EDT Screen for colon cancer from Last 3 Months or Most Recently Relevant to Health Maintenance Results * Outside CT??Chest Report Only (02/22/2025 6:48 AM EDT) us Historical Provider MD TELLES CT CHEST Final Res ult * XR CHEST PA AND LATERAL 2 VIEWS (02/03/2025 9:02 AM EDT) Anatomical Region Laterality Modality Chest Computed Radiogr aphy 02/03/2025 10:0 7 AM EDT Impressions 02/03/2025 10:26 AM EDT Minimal bibasilar atelectasis. No lobar pneumonia, pulmonary edema, or significant pleural effusions Narrative 02/03/2025 10:26 AM EDT XR CHEST PA AND LATERAL 2 VIEWS Referring clinician's provided indication for this [facility]: Fever; Pneumonia COMPARISON: 11/08/24 FINDINGS: Devices/Tubes/Lines: None. Lungs: Elevated left diaphragm similar to prior study. Minimal bibasilar atelectasis. No lobar pneumonia or pulmonary edema. Pleura: Normal. No pleural effusion or pneumothorax. Heart/Mediastinum: Unchanged in appearance. Bones/Soft Tissues: Degenerative changes in the thoracic spine Procedure Note Yevgeniy Gómez MD - 02/03/2025 XR CHEST PA AND LATERAL 2 VIEWS Referring clinician's provided indication for this examination in [facility]:Fever; Pneumonia COMPARISON: 11/08/24 FINDINGS: Devices/Tubes/Lines: None. Lungs: Elevated left diaphragm similar to prior study. Minimal bibasilaratelectasis. No lobar pneumonia or pulmonary edema. Pleura: Normal. No pleural effusion or pneumothorax. Heart/Mediastinum: Unchanged in appearance. Bones/Soft Tissues: Degenerative changes in the thoracic spine IMPRESSION: Minimal bibasilar atelectasis. No lobar pneumonia, pulmonary edema, orsignificant pleural effusions us Win Reyes PA-C IMG XR CHEST Final Result * Legionella/S.pneumo Combination Antigen Test (01/31/2025 8:43 AM EDT) UR LEGIONELLA AG Negative Negative [facility] Strep pneumo Ag Negative Negative [facility] Urine 01/31/2025 8:43 AM EDT 01/31/2025 8:44 AM EDT us Win Reyes PA-C URINE ORDERABLES Final Result Performing Organization Address [facility] Co de Phone Number [address] [address] * Procalcitonin (01/31/2025 8:28 AM EDT) Procalcitonin 0.17 0.00 - 0.25 ng/mL [facility] Comment: <=0.25 ng/mL: Bacterial pneumonia is unlikely. <0.5 ng/mL: Low likelihood of systemic bacterial infection / sepsis. Localized infection is possible. 0.5-2.0 ng/mL: Systemic bacterial infection / sepsis is possible, but other conditions can induce PCT levels in this range as well (e.g., pancreatitis,severe trauma, circulatory shock, surgery, kiran, inhalation injury.) >2.0 ng/mL: Systemic bacterial infection / sepsis is likely. Additional information can be found in the [facility] Procalcitonin Guidelines, available at [email or web address] Blood 01/31/2025 8:28 AM EDT 01/31/2025 8:40 AM EDT us Win Reyes PA-C LAB BLOOD ORDERABLES Final Re sult [facility] [address] [place] [address] * Lyme Western blot only (01/31/2025 8:28 AM EDT) IGG Immunoblot Negative Negative [facility]/PATH [address] IGG BANDS (KDA) None kDa [facility]/PATH [address] DR IGM Immunoblot Negative Negative [facility] MED/PATH [address] DR IGM BANDS (KDA) None kDa [facility] Interpretation - Lyme SEE NOTE [facility] Comment: (NOTE) Specific serologic response to B. burgdorferi infection is not detected, but cannot rule out early infection during which low or undetectable antibody levels to B. burgdorferi may be present. If clinically indicated, a new serum specimen should be submitted in 7-14 days. ADDITIONAL INFORMATION Per CDC criteria, the Lyme IgG Immunoblot is interpreted as positive if IgG-class antibodies are detected to >=5 B. burgdorferi proteins, and the Lyme IgM Immunoblot is interpreted as positive if IgM-class antibodies are detected to >=2 B. burgdorferi proteins. Immunoblot patterns not meeting these criteria should not be interpreted as positive. Epitopes from certain B. burgdorferi proteins (e.g., p41) are conserved across other bacteria, which may lead to the detection of IgM- and/or IgG-class antibodies on the Lyme disease immunoblots in patients without Lyme disease. Immunoblot should only be ordered on specimens that are positive or equivocal by a FDA-licensed Lyme disease antibody screening test (e.g., EIA). Results of the Lyme IgM immunoblot should not be considered in patients with >= 30 days of symptoms. 01/31/2025 8:28 AM EDT 01/31/2025 8:40 AM EDT us Win Reyes PA-C LAB BLOOD ORDERABLES Final Re violat Performing Organization Address [facility]/ZIP Co de Phone Number [facility] MED/PATH [place] [address] [place] [address] * Blood Culture, Routine (01/31/2025 8:28 AM EDT) Pathologist [facility] Special Requests None 01/31/2025 8:28 AM EDT [facility] BLOOD CULTURE NO GROWTH 5 DAYS 02/05/2025 8:57 AM EDT [facility] Blood (Blood) 01/31/2025 8:2 8 AM EDT 01/31/2025 8:39 AM EDT Win Reyes PA-C MICROBIOLOGY - GENERAL ORDERA BLES Final Result Performing Organization Address City/[facility]/ZIP Co de Phone Number [address] [address] * (ABNORMAL) Lyme Screen with Reflex to Immunoblot, Blood (01/31/2025 8:28 AM EDT) Pathologist [facility] Lyme AB IgG Negative Negative [facility] Lyme AB IgM Equivocal(A) Negative [facility] Comment:The Lyme Disease Ant ibody, Confirmation, Serum (Western Blot) has been reflexed. The results will follow. Blood 01/31/2025 8:28 AM EDT 01/31/2025 8:40 AM EDT us Win Reyes PA-C LAB BLOOD ORDERABLES Final Re sult Performing Organization Address City/[facility]/ZIP Co de Phone Number [address] [address] * (ABNORMAL) CBC (01/31/2025 8:28 AM EDT) Pathologist [facility] WBC 5.00 4.00 - 11.00 K/uL [facility] RBC 3.84(L) 4.50 - 5.90 M/uL [facility] HGB 12.6(L) 13.5 - 17.5 g/dL [facility] HCT 36.6(L) 41.0 - 53.0 % [facility] PLT 250 150 - 450 K/uL [facility] MCV 95.3 80.0 - 100.0 fL [facility] MCH 32.8(H) 27.0 - 31.0 pg [facility] MCHC 34.4 32.0 - 36.0 g/dL [facility] RDW 12.8 11.5 - 14.5 % [facility] MPV 8.6 8.4 - 12.0 fL [facility] NRBC 0.00 0.00 /100 WBCs [facility] ABSOLUTE NRBC 0.00 0.00 K/uL [facility] Blood 01/31/2025 8:28 AM EDT 01/31/2025 8:40 AM EDT us Win Reyes PA-C LAB BLOOD ORDERABLES Final Re sult [address] [address] * (ABNORMAL) Comprehensive metabolic panel (01/29/2025 9:23 AM EDT) SODIUM 140 133 - 146 mmol/L [facility] POTASSIUM 3.9 3.3 - 5.1 mmol/L [facility] CHLORIDE 102 96 - 108 mmol/L [facility] CO2 24 21 - 35 mmol/L [facility] BUN 11 6 - 19 mg/dL [facility] CREATININE 0.80 0.5 - 1.5 mg/dL [facility] GLUCOSE 77 70 - 99 mg/dL [facility] ALBUMIN 3.9 3.9 - 4.8 g/dL [facility] TOTAL PROTEIN 6.7 6.5 - 8.0 g/dL [facility] CALCIUM 9.3 8.4 - 10.3 mg/dL [facility] ALKALINE PHOSPHATASE 79 39 - 117 U/L [facility] TOTAL BILIRUBIN 1.3(H) 0.0 - 1.2 mg/dL [facility] AST 28 0 - 37 U/L [facility] ALT 20 0 - 40 U/L [facility] GLOBULIN 2.8 1 - 4.8 g/dL [facility] EGFR 95 >59 mL/min/1.7 3m2 [facility] Comment:Estimated glomerular filtration rate calculated using the CKD-EPI refit equation. ANION GAP 18 10 - 20 mmol/L [facility] Blood 01/29/2025 9:23 AM EDT 01/29/2025 9:27 AM EDT us Ted Pearl MD LAB BLOOD ORDERABLES Final Re sult Performing Organization Address City/[facility]/ZIP Co de Phone Number [address] [address] * TSH with reflex (01/29/2025 9:23 AM EDT) TSH 1.72 0.27 - 4.20 uIU/mL [facility] Blood 01/29/2025 9:23 AM EDT 01/29/2025 9:27 AM EDT us Ted Pearl MD LAB BLOOD ORDERABLES Final Re sult Performing Organization Address [facility] Co de Phone Number [address] [address] * Double stranded DNA antibodies (01/29/2025 9:23 AM EDT) ANTI DSDNA ANTIBODY Negative at 1:10 [facility] Comment: Performing Pathologist, Jalen Saravia M.D., Ph.D. [phone] Normal: Negative at 1:10 To interpret a negative test for anti-mi'kmaq or double stranded DNA antibodies in a patient suspected of having systemic lupus erythematosus, the following limitation should be noted. Anti-double stranded DNA antibodies are usually detected in SLE patients with active disease, especially in those with active renal disease. Anti-DNA antibodies are usually not detected in SLE patients with spontaneous or drug-induced remissions. Blood 01/29/2025 9:23 AM EDT 01/29/2025 9:27 AM EDT us Edie Pina MD LAB BLOOD ORDERABLES Fin al Result Performing Organization Address City/[facility]/ZIP Co de Phone Number [address] [address] * (ABNORMAL) Sedimentation rate (ESR) (01/29/2025 9:23 AM EDT) ESR 34(H) 0 - 20 mm/h [facility] Blood 01/29/2025 9:23 AM EDT 01/29/2025 9:27 AM EDT us Edie Pina MD LAB BLOOD ORDERABLES Fin al Result [address] [address] * (ABNORMAL) CBC and differential (01/29/2025 9:23 AM EDT) WBC 7.64 4.00 - 11.00 K/uL [facility] RBC 3.70(L) 4.50 - 5.90 M/uL [facility] HGB 12.0(L) 13.5 - 17.5 g/dL [facility] HCT 36.3(L) 41.0 - 53.0 % [facility] PLT 322 150 - 450 K/uL [facility] MCV 98.1 80.0 - 100.0 fL [facility] MCH 32.4(H) 27.0 - 31.0 pg [facility] MCHC 33.1 32.0 - 36.0 g/dL [facility] RDW 13.1 11.5 - 14.5 % [facility] MPV 9.4 8.4 - 12.0 fL [facility] NRBC 0.00 0.00 /100 WBCs [facility] ABSOLUTE NRBC 0.00 0.00 K/uL [facility] DIFF METHOD Auto [facility] NEUTS 60.9 48.0 - 76.0 % [facility] LYMPHS 23.8 18.0 - 41.0 % [facility] MONOS 11.0 4.0 - 11.0 % [facility] EOS 2.5 0.0 - 5.0 % [facility] BASOS 1.0 0.0 - 1.5 % [facility] Granulocytes, immature (%) 0.8 0.0 - 0.9 % [facility] ABSOLUTE NEUTS 4.65 1.92 - 7.60 K/uL [facility] ABSOLUTE LYMPHS 1.82 0.72 - 4.10 K/uL [facility] ABSOLUTE MONOS 0.84 0.16 - 1.10 K/uL [facility] ABSOLUTE EOS 0.19 0.00 - 0.50 K/uL [facility] ABSOLUTE BASOS 0.08 0.00 - 0.15 K/uL [facility] Granulocytes, immature 0.06 0.00 - 0.09 K/uL [facility] Blood 01/29/2025 9:23 AM EDT 01/29/2025 9:27 AM EDT us Ted Pearl MD LAB BLOOD ORDERABLES Final Re sult [facility] [address] [place] [address] * (ABNORMAL) Complement C3 (01/29/2025 9:23 AM EDT) C3 78(L) 81 - 157 mg/dl [facility] Blood 01/29/2025 9:23 AM EDT 01/29/2025 9:27 AM EDT us Edie Pina MD LAB BLOOD ORDERABLES Fin al Result Performing Organization Address [facility] Co de Phone Number [address] [address] * Complement C4 (01/29/2025 9:23 AM EDT) C4 21 12 - 39 mg/dL [facility] Blood 01/29/2025 9:23 AM EDT 01/29/2025 9:27 AM EDT us Edie Pina MD LAB BLOOD ORDERABLES Fin al Result Performing Organization Address City/[facility] Co de Phone Number [address] [address] * (ABNORMAL) C-Reactive Protein (01/29/2025 9:23 AM EDT) C REACTIVE PROTEIN 108.5(H) 0.0 - 4.0 mg/L [facility] Blood 01/29/2025 9:23 AM EDT 01/29/2025 9:27 AM EDT Edie Pina MD LAB BLOOD ORDERABLES Fin al Result Performing Organization Address City/[facility]/ZIP Co de Phone Number [address] [address] * CPK (creatine kinase) (01/29/2025 9:23 AM EDT) CREATINE KINASE 55 35 - 232 U/L [facility] Blood 01/29/2025 9:23 AM EDT 01/29/2025 9:27 AM EDT Edie Pina MD LAB BLOOD ORDERABLES Fin al Result Performing Organization Address [facility] Co de Phone Number [address] [address] * (ABNORMAL) Lipid panel (01/29/2025 9:23 AM EDT) HDL 74 mg/dL [facility] Comment: Interpretation <40 mg/dL: Low HDL cholesterol (major risk factor for CHD) Greater than or equal to 60 mg/dL: High HDL cholesterol ( negative risk factor for CHD) HDL - cholesterol is affected by a number of factors, e.g. smoking, excerise, hormones, sex and age. CHOLESTEROL 119 0 - 240 mg/dL [facility] TRIGLYCERIDES 57 30 - 160 mg/dL [facility] LDL 34(L) 50 - 129 mg/dL [facility] Comment: LDL levels in terms of risk for coronary heart disease: <100 mg/dL: Optimal 100-129 mg/dL: Near or above optimal 130-159 mg/dL: Borderline high 160-189 mg/dL: High >190 mg/dL: Very High CARDIAC RISK RATIO 1.6(L) 3.4 - 5.0 [facility] Blood 01/29/2025 9:23 AM EDT 01/29/2025 9:27 AM EDT us Ted Pearl MD LAB BLOOD ORDERABLES Final Re sult [facility] [address] [place] [address] * COLONOSCOPY FOR RESULT ENTRY ONLY (02/19/2024) HM Colonoscopy 3 yr recall us Historical Provider HEALTH MAINTENANCE Final Result * CT CHEST LUNG CANCER SCREENING INITIAL (08/24/2022 8:37 AM EST) Anatomical Region Laterality Modality Chest Computed Tomogra phy 08/24/2022 8:58 AM EST Impressions 08/24/2022 9:16 AM EST Lung-RADS Category: 1. Negative study as there are no nodules present. Findings which suggest COPD. RECOMMENDATIONS: Continue CT Chest Lung Screening Annual exam if patient meets eligibility criteria. To order, please type CT CHEST SCREENING (CT.TH.[email or web address]) and select ANNUAL for patient program status. Explanation of the Lung-RADS categories can be found at: [email or web address] Narrative 08/24/2022 9:[address] CHEST LUNG CANCER SCREENING INITIAL TECHNIQUE: Low dose multidetector CT of the chest was performed without intravenous contrast using tailored dose modulation techniques. COMPARISON: None FINDINGS: Lungs: No pulmonary nodules or consolidation. Saber sheath trachea morphology strongly suggests COPD Pleura: Normal. No pleural effusion or pneumothorax. Mediastinum: No thyroid nodules. Aortic valve and coronary artery calcifications. Lymph Nodes: No enlarged supraclavicular, axillary, mediastinal, or hilar lymph nodes. Upper Abdomen: Absence of intravenous contrast and low dose technique limits sensitivity for detecting small lesions, solid organ and vascular findings. No abnormality detected in the visualized upper abdomen. Chest Wall: No chest wall mass. Bones: No suspicious lytic or blastic lesions. Procedure Note Qamar Corona MD, GABE - 08/24/2022 CT CHEST LUNG CANCER SCREENING INITIAL TECHNIQUE: Low dose multidetector CT of the chest was performed withoutintravenous contrast using tailored dose modulation techniques. COMPARISON: None FINDINGS: Lungs: No pulmonary nodules or consolidation. Saber sheath tracheamorphology strongly suggests COPD Pleura: Normal. No pleural effusion or pneumothorax. Mediastinum: No thyroid nodules. Aortic valve and coronary arterycalcifications. Lymph Nodes: No enlarged supraclavicular, axillary, mediastinal, or hilarlymph nodes. Upper Abdomen: Absence of intravenous contrast and low dose techniquelimits sensitivity for detecting small lesions, solid organ and vascularfindings. No abnormality detected in the visualized upper abdomen. Chest Wall: No chest wall mass. Bones: No suspicious lytic or blastic lesions. IMPRESSION: Lung-RADS Category: 1. Negative study as there are no nodules present. Findings which suggest COPD. RECOMMENDATIONS: Continue CT Chest Lung Screening Annual exam if patient meets eligibilitycriteria. To order, please type CT CHEST SCREENING (CT.TH.CHESTSCR) and selectANNUAL for patient program status. Explanation of the Lung-RADS categories can be found at:[email or web address] us Ted Pearl MD IMG CT CHEST Final Result * Hepatitis C antibody, qualitative (09/15/2021 7:26 AM EST) HCV NON-REACTIV E NON-REACTI VE [facility] Blood 09/15/2021 7:26 AM EST 09/15/2021 7:39 AM EST us Edie Pina MD LAB BLOOD ORDERABLES Fin al Result [address] [address] * US Abdominal Aortic Screening (06/01/2021 7:48 AM EDT) Anatomical Region Laterality Modality Abdomen Ultrasound 06/01/2021 7:56 AM EDT Impressions 06/01/2021 7:59 AM EDT Distal abdominal aortic ectasia-2.9 cm. Narrative 06/01/2021 7:59 AM EDT COMPARISON: None. ABDOMINAL AORTA ULTRASOUND FINDINGS: No evidence of an abdominal aortic aneurysm. Distal abdominal aortic ectasia-2.9 x 2.6 cm. The proximal common iliac arteries are nonaneurysmal. Procedure Note Star Batista MD - 06/01/2021 COMPARISON: None. ABDOMINAL AORTA ULTRASOUND FINDINGS: No evidence of an abdominal aortic aneurysm. Distal abdominal aorticectasia-2.9 x 2.6 cm. The proximal common iliac arteries arenonaneurysmal. IMPRESSION: Distal abdominal aortic ectasia-2.9 cm. Ted Pearl MD IMG US ABDOMEN Final Result * (ABNORMAL) Fecal immunochemical test x1 (FIT) (05/26/2021 7:23 PM EDT) Immuno Fecal Occult Positive(A ) Negative [facility] Stool (Stool) 05/26/2021 7:2 3 PM EDT 05/26/2021 7:26 PM EDT Ted Pearl MD BODY FLUIDS AND STOOLS ORDERA BLES Final Result [facility] [address] [place] [address] from Last 3 Months or Most Recently Relevant to Health Maintenance Insurance [employer] [place] MEDICARE PPO BLUE REPLACEMENT [address] [place] [address] MEDICARE PPO BLUE RE[address]ACEMENT [address] [place] [address] MEDICARE PPO BLUE REPLACEMENT [address] [place] [address] MEDICARE PPO BLUE REPLACEMENT [facility] MEDICARE PPO BLUE REPLACEMENT Care Teams Ct Mri Technologist Relationship Specialty Start Date End Date Win Reyes PA-C [address] [place] [phone] [email or web address] PCP - General Physician Diet Attendant 04/22/25 Sterling Ware MD [email or web address] Dermatology 12/20/19 Tyrel Amaya MD [address] [place] [address] [place] [address] Pulmonary Disease 02/17/20 Andrzej Garland MD [address] [place] [address] [place] [address] Ophthalmology 04/07/20 Additional Source Comments The information contained in this document represents components of the legal health record. It is not the complete legal health record.[facility]
== END 2025-04-30 10:16 | disposition home or self-care (01) ==
LOC: HO.HPSW 09:46
PROVIDERS: PCP Internal Medicine; Visit Provider Nurse Practitioner Family
DX: J44.9 Chronic obstructive pulmonary disease, unspecified (principal); J43.9 Emphysema, unspecified; J98.6 Disorders of diaphragm; Z87.891 Personal history of nicotine dependence
CPT/HCPCS: 99214

== ENCOUNTER → 2025-04-30 09:45 | Outpatient (BNVA) | payer MEDICARE, SELFPAY | PROVIDERS: PCP Internal Medicine; Visit Provider Nurse Practitioner Family | DX: J18.9 Pneumonia, unspecified organism (principal); J96.01 Acute respiratory failure with hypoxia; J44.9 Chronic obstructive pulmonary disease, unspecified; J43.9 Emphysema, unspecified; J98.6 Disorders of diaphragm; M32.9 Systemic lupus erythematosus, unspecified; Z87.891 Personal history of nicotine dependence; Z79.899 Other long term (current) drug therapy | CPT/HCPCS: 99212 ==

== ENCOUNTER 2025-05-23 00:46 | Inpatient (IN) | payer MEDICARE, SELFPAY ==
[2025-05-23] VITALS (14 sets, daily range): BP systolic 121–177; BP diastolic 54–87; PULSE 76–121; RESP 20–30; TEMP 36.4–37.9; O2SAT 60–98; BMI 26.4
--- NOTE | ~2025-05-23 | XR_ITS ---
CLINICAL HISTORY: sob, copd, hypoxic 1 view chest x-ray Comparison: CT/SR - CT CHEST WO IV CON - 02/22/25 09:28 EDT Findings: Consolidation throughout most of the left lung consistent with pneumonia. Asymmetric elevation of the left hemidiaphragm is stable. Right lung and right pleural space clear. No pleural effusion. IMPRESSION: 1. Left lung consolidation consistent with known multifocal pneumonia. There was a similar, albeit less extensive, pattern of pneumonia on 12/11/2024 examination. This document has been electronically signed by: Rex Cueva MD on 05/23/2025 01:37:33
--- NOTE | ~2025-05-23 | CT_ITS ---
CLINICAL HISTORY: recurrent pna, sob CT chest without contrast Comparison: CR - XR CHEST 1V - 05/23/25 01:[address]/SR - CT CHEST WO IV CON - 02/22/25 09:28 EDT Findings: Multifocal consolidations, predominantly involving the left upper and lower lobes with mild airspace opacities in the right upper, middle, and lower lobes. No pleural effusion or pneumothorax. Normal thyroid. Normal cardiac morphology. Severe aortic root calcifications with probable proximal left coronary artery calcifications. Normal mediastinum. No acute fracture. 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 No acute abnormality in the upper abdomen. Bilateral simple renal cysts. Large periampullary duodenal diverticulum. IMPRESSION: Multifocal consolidations, predominantly involving the left lung, concerning formultifocal infection/pneumonia. Recommend 8 week follow-up chest radiograph to ensure resolution. This document has been electronically signed by: Tristen Buck MD on 05/23/2025 04:26:54
--- OUTSIDE RECORDS SUMMARY | 2025-05-23 01:01 | XMS_ITS | Encounter Summary ---
Author Organization [facility] Address [address] [place] [address] Phone Care Team Providers Care Human Machine Interface Engineer Name Role Phone eTd Pearl MD Primary Care Provider [phone] Sterling Ware MD Unavailable [phone] Tyrel Amaya MD Unavailable [phone] Andrzej Garland MD Unavailable [phone] Win Reyes PA-C Primary Care Provider [phone] Encounter Details Date Type Department Care Team (Latest Contact Info) Description 01/05/2024 Ancillary Orders [facility] Rheumatology [address] [place] [address] Edie Pina MD [address] [facility], [address] [place] [address] [email or web address] Lupus erythematosus tumidus (Primary Dx); Long-term [...] Description 06/11/2025 7:20 AM EST Office [facility] Internal Medicine [address] [place] [address] Win Reyes PA-C 40 [place] [address] [email or web address] 06/12/2025 9:00 AM EST Office Visit [facility] Rheumatology [address] [place] [address] Edie Pina MD [address] [facility], [address] [place] [address] [email or web address] documented as of this encounter Results [...] with subchondral sclerosis, bony proliferative change, and qugq-ed-fbth contact is severe in the medial, moderate [...] narrowing with subchondral sclerosis, bonyproliferative change, and ufmd-up-ccwg contact is severe in the medial,moderate to [...] documented as of this encounter Care Teams Human Machine Interface Engineer Relationship Specialty Start Date End Date Ted Pearl MD [address] [place] [address] PCP - General Internal Medicine 12/18/19 04/21/25 Win Reyes PA-C [address] [place] [address] PCP - General Physician Application Spec 04/22/25 Sterling Ware MD [address] [place] [address] [email or web address] Dermatology 12/20/19 Tyrel Amaya MD [address] [place] [address] [place] [address] Pulmonary Disease 02/17/20 Andrzej Garland MD [address] [place] [address] [place] [address] Ophthalmology 04/07/20 documented as of this encounter Additional Source Comments The information contained in this document represents components of the legal health record. It is not the complete legal health record.[facility]
--- OUTSIDE RECORDS SUMMARY | 2025-05-23 01:01 | XMS_ITS | Encounter Summary ---
Author Organization [facility] Address [address] [place] [address] Phone Care Team Providers Care Longwall Headgate Operator Name Role Phone Ted Pearl MD Primary Care Provider [phone] Sterling Ware MD Unavailable [phone] Tyrel Amaya MD Unavailable [phone] Andrzej Garland MD Unavailable [phone] Win Reyes PA-C Primary Care Provider [phone] Encounter Details Date Type Department Care Team (Late st Contact Info) Description 01/08/2021 Procedure Pass [facility] [address] [place], [place] [id number] Social History Tobacco Use Types Packs/Day Years [...] Description 06/11/2025 7:20 AM EST Office Visit [facility] Internal Medicine [address] [place], [place] [phone] Win Reyes PA-C [address] [place], [place] [phone] 06/12/2025 9:00 AM EST Office Visit [facility] Rheumatology [address] [place] [address] Edie Pina MD [address] [facility], [address] [place] [address] [email or web address] documented as of this encounter Visit Diagnoses Not on filedocumented in this encounter Additional Health Concerns Infection Onset Date Last Indicated Resolved Time COVID-19 09/19/2023 09/19/2023 10/10/2023 1:21 AM EST CoV-Risk 11/07/2024 11/07/2024 11/18/2024 1:21 AM EDT Assessment Noted Time PHQ-2 Depression Total Score: 0 12/20/19 9:41 AM EDT documented as of this encounter Care Teams Longwall Headgate Operator Relationship Specialty Start Date End Date Ted Pearl MD [address] [place] [address] [email or web address] PCP - General Internal Medicine 12/18/19 04/21/25 Win Reyes PA-C [address] [place] [address] [email or web address] PCP - General Physician Refractory Tile Helper 04/22/25 Sterling Ware MD [address] [place] [address] [email or web address] Dermatology 12/20/19 Tyrel Amaya MD [address] [place] [address] [place] [address] Pulmonary Disease 02/17/20 Andrzej Garland MD NPI: [id number] [place] [address] [place] [address] Ophthalmology 04/07/20 documented as of this encounter Additional Source Comments The information contained in this document represents components of the legal health record. It is not the complete legal health record.[facility]
--- OUTSIDE RECORDS SUMMARY | 2025-05-23 01:01 | XMS_ITS | Encounter Summary ---
Author Organization [facility] Address [address] [place] [address] Phone Care Team Providers Care Electric Operator Name Role Phone Ted Pearl MD Primary Care Provider [phone] Ted Pearl MD Unavailable [phone] Etienne Lindsey MD Unavailable Ted Pearl MD Unavailable [phone] Ted Pearl MD Primary Care Provider [phone] Sterling Ware MD Unavailable [phone] Tyrel Amaya MD Unavailable [phone] Andrzej Garland MD Unavailable [phone] Win Reyes PA-C Primary Care Provider [phone] Encounter Details Date Type Department Care Team (Latest Contact Info) Description 01/22/2018 Transcribe Orders [facility] [address] [place] [address] Anais Goncalves, OPERATIONS ANALYST [address] [place] [address] [email or web address] Fever, unspecified fever cause (Primary Dx) [...] Description 06/11/2025 7:20 AM EST Office Visit [facility] Internal Medicine [address] [place] [address] Win Reyes PA-C 40 [place] [address] 06/12/2025 9:00 AM EST Office Visit [facility] Rheumatology 22 [place] [address] Edie Pina MD [address] [place] [address], [address] [place] [address] [email or web address] documented as of this encounter Visit Diagnoses Diagnosis Fever, unspecified fever cause- Primary documented in this encounter Additional Health Concerns Infection Onset Date Last Indicated Resolved Time CoV-Risk 12/23/2019 12/23/2019 01/06/2020 1:24 AM EDT COVID-19 09/19/2023 09/19/2023 10/10/2023 1:21 AM EST CoV-Risk 11/07/2024 11/07/2024 11/18/2024 1:21 AM EDT documented as of this encounter Care Teams Electric Operator Relationship Specialty Start Date End Date Ted Pearl MD [address] [place] [address] PCP - General Internal Medicine 09/05/17 12/17/19 Ted Pearl MD [address] [place] [address] PCP - General Internal Medicine 12/18/19 04/21/25 Win Reyes PA-C [address] [place] [address] [email or web address] PCP - General Physician Bakery Team Leader 04/22/25 Ted Pearl MD [address] [place] [address] [email or web address] Insurance Assigned Provider 12/08/18 05/18/19 Etienne Lindsey MD [address] [place] [address] [email or web address] Insurance Assigned Provider 05/18/19 06/08/19 Ted Pearl MD [address] [place] [address] [email or web address] Insurance Assigned Provider 06/08/19 10/11/19 Sterling Ware MD [address] [place] [address] [email or web address] Dermatology 12/20/19 Tyrel Amaya MD [address] [place] [address] [place] [address] Pulmonary Disease 02/17/20 Andrzej Garland MD [address] [place] [address] [place] [address] Ophthalmology 04/07/20 documented as of this encounter Additional Source Comments The information contained in this document represents components of the legal health record. It is not the complete legal health record.[facility]
--- OUTSIDE RECORDS SUMMARY | 2025-05-23 01:01 | XMS_ITS | Clinical Summary ---
Author Organization [facility] Address [address] [place] [address] Phone Care Team Providers Care Business Planning Manager Name Role Phone Sterling Ware MD Unavailable [phone] Tyrel Amaya MD Unavailable Andrzej Garland MD Unavailable [phone] Win Reyes PA-C Primary Care Provider [phone] Allergies Active Allergy Reactions Criticality Noted Date Comments Ibuprofen Swelling,Other (See Comments) High 12/27/2016 Other reaction(s): Itchy hands, throat closing Other reaction(s): tongue swelling Levofloxacin Other (See Comments) 11/19/2017 nightmares Lisinopril Cough 12/27/2016 Medications esomeprazole (NEXIUM) 40 MG capsule Take 40 mg by mouth nightly at bedtime. Active LAXATIVE, BISACODYL, 5 mg EC tablet Take 5-10 mg by mouth as needed. As needed 06/27/20 23 Active losartan (COZAAR) 100 MG tabletIndications :Essential hypertension TAKE 1 TABLET DAILY 90 tablet 3 07/30/20 24 Active hydroxychloroquin e (PLAQUENIL) 200 mg tabletIndications :Lupus erythematosus tumidus Take 1 tablet (200 mg total) by mouth 2 (two) times a day. 180 tablet 3 09/06/19 25 Active albuterol 90 mcg/actuation inhaler Inhale 2 puffs into the lungs every 6 (six) hours as needed for shortness of breath/dyspn ea. 18 g 3 05/23/20 25 Active pyridoxine, vitamin B6, (B-6) 50 MG tablet Take 50 mg by mouth daily. 01/09/20 Active aspirin 81 mg chewable tablet Take 81 mg by mouth daily. 01/09/20 Active atenolol (TENORMIN) 50 mg tabletIndications :Benign essential hypertension Take 1 tablet (50 mg total) by mouth every morning. 100 tablet 3 01/25/20 Active doxycycline hyclate (VIBRAMYCIN) 100 MG capsule Take 1 capsule by mouth 2 (two) times a day. 04/15/20 Active BREO ELLIPTA 200-25 mcg/dose inhaler Inhale 1 puff into the lungs daily. 04/15/20 Active atorvastatin (LIPITOR) 80 MG tabletIndications :Hyperlipidemia TAKE 1 TABLET BY MOUTH EVERY DAY 90 tablet 3 05/05/20 Active atorvastatin (LIPITOR) 80 MG tablet Take 1 tablet (80 mg total) by mouth daily. 30 tablet 2 02/12/20 25 025 Discontinued Active Problems Problem Noted Date Diagnosed Date Other pneumonia, unspecified organism 04/22/2025 Routine general medical exam ination at a health care facility 04/22/2025 NSTEMI (non-ST elevated myocardial infarction) 0 04/22/2025 care home current use of aspirin 01/10/2025 Assessment & [...] anesthesia I have injected 1st of 3 [id number] mg Synvisc vial into Right knee from [...] AM EDT): Continue Creon as prescribed by commercial correspondent. Follow-up as scheduled. Assessment & Plan (01/05/2024 11:05 AM EDT): Continue Creon as prescribed by commercial correspondent. Get colonoscopy as scheduled on 10/11/2022 to make sure that last year tubulovillous polyp has not returned. Assessment & Plan (12/14/2022 9:04 AM EDT): Continue Creon as prescribed by commercial correspondent. Get colonoscopy as scheduled on 10/11/2022 to make sure that last year tubulovillous polyp has not returned. Assessment & Plan (08/13/2022 5:10 PM EST): Continue Creon as prescribed by commercial correspondent. Get colonoscopy as scheduled on 10/11/2022 to [...] MD Patient: Hardy Jackson : 1955 Date: 12/14/2022 Assessment & Plan [...] starting Plaquenil again and follow instructions flow water filterer. Daily sun protection all year round while on Plaquenil. Assessment & Plan (09/06/2024 9:03 AM EST): Take carefully as prescribed. Arrange for ophthalmologic checkup within 12 months since starting Plaquenil again and follow instructions flow water filterer. Daily sun protection all year round while on Plaquenil. Assessment & Plan (05/06/2024 10:49 AM EDT): Take carefully as prescribed. Arrange for ophthalmologic checkup within 12 months since starting Plaquenil again and follow instructions flow water filterer. Daily sun protection all year round while on Plaquenil. Assessment & Plan (01/05/2024 11:05 AM EDT): Take carefully as prescribed. Arrange for ophthalmologic checkup within 12 months since starting Plaquenil again and follow instructions flow water filterer. Daily sun protection all year round while on Plaquenil. Assessment & Plan (12/14/2022 9:05 AM EDT): Take carefully as prescribed. Arrange for ophthalmologic checkup within 12 months since starting Plaquenil again and follow instructions flow water filterer. Daily sun protection all year round while on Plaquenil. Assessment & Plan (08/11/2022 8:11 AM EST): Take carefully as prescribed. Arrange for ophthalmologic checkup within 12 months since starting Plaquenil again and follow instructions flow water filterer. Daily sun protection all year round while on Plaquenil. Assessment & Plan (04/13/2022 10:02 AM EDT): Take carefully as prescribed. Arrange for ophthalmologic checkup within 12 months since starting Plaquenil again and follow instructions flow water filterer. Daily sun protection all year round while on Plaquenil. Assessment & Plan (12/19/2021 5:12 PM EDT): Take carefully as prescribed. Arrange for ophthalmologic checkup within 12 months since starting Plaquenil again and follow instructions flow water filterer. Daily sun protection all year round while [...] may benefit from combined dermatology/rheumatology consult at [facility] with Dr. Luly Fisher Assessment & Plan [...] may benefit from combined dermatology/rheumatology consult at [facility] with Dr. Luly Fisher Assessment & Plan [...] may benefit from combined dermatology/rheumatology consult at [facility] with Dr. Luly Fisher Assessment & Plan [...] may benefit from combined dermatology/rheumatology consult at [facility] with Dr. Luly Fisher Assessment & Plan [...] may benefit from combined dermatology/rheumatology consult at [facility] with Dr. Luly Fisher Assessment & Plan [...] may benefit from combined dermatology/rheumatology consult at [facility] with Dr. Luly Fisher Assessment & Plan [...] may benefit from combined dermatology/rheumatology consult at [facility] with Dr. Luly Fisher Assessment & Plan [...] may benefit from combined dermatology/rheumatology consult at [facility] with Dr. Luly Fisher Assessment & Plan [...] may benefit from combined dermatology/rheumatology consult at [facility] with Dr. Luly Fisher Assessment & Plan [...] may benefit from combined dermatology/rheumatology consult at [facility] with Dr. Luly Fisher if above regimen [...] may benefit from combined dermatology/rheumatology consult at [facility] with Dr. Luly Fisher Assessment & Plan [...] may benefit from combined dermatology/rheumatology consult at [facility] with Dr. Luly Fisher Assessment & Plan [...] may benefit from combined dermatology/rheumatology consult at [facility] with Dr. Luly Fisher Assessment & Plan [...] may benefit from combined dermatology/rheumatology consult at [facility] with Dr. Luly Fisher Assessment & Plan [...] may benefit from combined dermatology/rheumatology consult at [facility] with Dr. Luly Fisher History of pneumonia [...] & Plan (09/09/2021 8:32 PM EST): Over 66-owoj-cyzf history of smoking-quit in 2016-great risk factor for multiple lungs diseases--close monitoring necessary. Other pneumonia, unspecified organism 10/16/2017 12/25/2017 Encounters Date Type Department Care Team Description 05/05/2025 Telephone [facility] Internal Medicine [address] [place] [address] Constance Scherer RN Medication Refill 05/05/2025 Refill [facility] Internal Medicine [address] [place] [address] Win Reyes PA-C Medication Refill 04/22/2025 9:00 AM EDT Office Visit [facility] Internal Medicine [address] [place] [address] Win Reyes PA-C Chronic obstructive pulmonary disease, unspecified COPD type (Primary Dx); Routine general medical examination at a health care facility; Other pneumonia, unspecified organism; Benign essential hypertension; Pure hypercholesterolemia; Gastroesophageal reflux disease with esophagitis without hemorrhage; Lupus erythematosus tumidus; NSTEMI (non-ST elevated myocardial infarction) 03/31/2025 2:30 PM EDT Office Visit [facility] Rheumatology [address] [place] [address] [place] [address] Edie Pina MD Arthritis of knee, right (Primary Dx); terminal manager current use of aspirin; Lupus erythematosus tumidus 03/24/2025 10:00 AM EDT Office Visit [facility] Rheumatology [address] [place] [address] [place] [address] Edie Pina MD Arthritis of knee, right (Primary Dx); Lupus erythematosus tumidus; care home current use of aspirin 03/17/2025 8:30 AM EDT Office Visit [facility] Rheumatology [address] [place] [address] [place] [address] Edie Pina MD Primary osteoarthritis of both knees (Primary Dx); Lupus erythematosus tumidus; History of pneumonia 02/26/2025 Telephone [facility] [address] [place] [address] Erinn Conte CNP 02/26/2025 Orders Only [facility] Internal Medicine [address] [place] [address] ProviderChanell MD from Last 3 Months Immunizations Immunization Administration [...] Description 06/11/2025 7:20 AM EST Office Visit [facility] Internal Medicine [address] [place] [address] Win Reyes PA-C [address] [place] [address] [email or web address] 06/12/2025 9:00 AM EST Office Visit [facility] Rheumatology [address] [place] [address] Edie Pina MD [address] [facility], [address] [place], [place] [id number] [email or web address] Health Maintenance Due Date Last Done [...] Additional history exists POTASSIUM LEVEL 01/29/2026 01/29/2025, 0 10/2024, 01/09/2024, Additional history exists DEPRESSION SCREENING 04/15/2026 04/15/2025 LIPID PANEL 01/29/2030 01/29/2025, 060 11/2023, 07/13/2023, Additional history exists Adult Td,Tdap [...] REPORT ONLY Routine 02/22/2025 6:48 AM EDT LIPID PANEL Routine 01/29/2025 9:23 AM EDT Myocardial injury Benign essential hypertension COMPREHENSIVE METABOLIC PANEL Routine 01/29/2025 9:23 AM EDT Benign essential hypertension CT CHEST Routine 01/24/2025 [...] (02/22/2025 6:48 AM EDT) us Historical Provider IMG CT CHEST Final Res ult * (ABNORMAL) Comprehensive metabolic panel (01/29/2025 9:23 AM EDT) SODIUM 140 133 - 146 mmol/L [facility] POTASSIUM 3.9 3.3 - 5.1 mmol/L [facility] CHLORIDE 102 96 - 108 mmol/L [facility] CO2 24 21 - 35 mmol/L [facility] BUN 11 6 - 19 mg/dL [facility] CREATININE 0.80 0.5 - 1.5 mg/dL [facility] GLUCOSE 77 70 - 99 mg/dL [facility] ALBUMIN 3.9 3.9 - 4.8 g/dL [facility] TOTAL PROTEIN 6.7 6.5 - 8.0 g/dL [facility] CALCIUM 9.3 8.4 - 10.3 mg/dL [facility] ALKALINE PHOSPHATASE 79 39 - 117 U/L [facility] TOTAL BILIRUBIN 1.3(H) 0.0 - 1.2 mg/dL [facility] AST 28 0 - 37 U/L [facility] ALT 20 0 - 40 U/L [facility] GLOBULIN 2.8 1 - 4.8 g/dL [facility] EGFR 95 >59 mL/min/1.7 3m2 [facility] Comment:Estimated glomerular filtration rate calculated using the CKD-EPI refit equation. ANION GAP 18 10 - 20 mmol/L [facility] Blood 01/29/2025 9:23 AM EDT 01/29/2025 9:27 AM EDT us Ted Pearl MD LAB BLOOD ORDERABLES Final Re sult [facility] [address] [place] [address] * (ABNORMAL) Lipid panel (01/29/2025 9:23 AM EDT) HDL 74 mg/dL [facility] Comment: Interpretation <40 mg/dL: Low HDL cholesterol (major risk factor for CHD) Greater than or equal to 60 mg/dL: High HDL cholesterol ( negative risk factor for CHD) HDL - cholesterol is affected by a number of factors, e.g. smoking, excerise, hormones, sex and age. CHOLESTEROL 119 0 - 240 mg/dL [facility] TRIGLYCERIDES 57 30 - 160 mg/dL [facility] LDL 34(L) 50 - 129 mg/dL [facility] Comment: LDL levels in terms of risk for coronary heart disease: <100 mg/dL: Optimal 100-129 mg/dL: Near or above optimal 130-159 mg/dL: Borderline high 160-189 mg/dL: High >190 mg/dL: Very High CARDIAC RISK RATIO 1.6(L) 3.4 - 5.0 C [facility] Blood 01/29/2025 9:23 AM EDT 01/29/2025 9:27 AM EDT Ted Pearl MD LAB BLOOD ORDERABLES Final Re sult [address] [address] * COLONOSCOPY FOR RESULT ENTRY ONLY (02/19/2024) Colonoscopy 3 yr recall Historical Provider HEALTH MAINTENANCE Final Result * [...] the Lung-RADS categories can be found at:[email or web address] Ted Pearl MD IMG CT CHEST Final Result * Hepatitis C antibody, qualitative (09/15/2021 7:26 AM EST) HCV NON-REACTIV E NON-REACTI VE [facility] Blood 09/15/2021 7:26 AM EST 09/15/2021 7:39 AM EST Edie Pina MD LAB BLOOD ORDERABLES Fin al Result [address] [address] * US Abdominal Aortic Screening (06/01/2021 7:48 [...] EDT) Immuno Fecal Occult Positive(A ) Negative [facility] Stool (Stool) 05/26/2021 7:2 3 PM EDT 05/26/2021 7:26 PM EDT Ted Pearl MD BODY FLUIDS AND STOOLS ORDERA BLES Final Result [facility] [address] [place] [address] from Last 3 Months or Most Recently Relevant to Health Maintenance Insurance [address] [place] [address] MEDICARE PPO BLUE REPLACEMENT [place] [place] [address] MEDICARE PPO BLUE REPLACEMENT [place] [place] [address] MEDICARE PPO BLUE REPLACEMENT [facility] MEDICARE PPO BLUE REPLACEMENT [place] [address] MEDICARE PPO BLUE REPLACEMENT [facility] MEDICARE PPO BLUE REPLACEMENT [facility] MEDICARE PPO BLUE REPLACEMENT [place] [place] [address] MEDICARE PPO BLUE REPLACEMENT [facility] MEDICARE PPO BLUE REPLACEMENT Care Teams Business Planning Manager Relationship Specialty Start Date End Date Win Reyes PA-C [address] [place] [email or web address] PCP - General Physician Flat Sorting Machine Clerk 04/22/25 Sterling Ware MD Dermatology 12/20/19 Tyrel Amaya MD [address] [place] [address] [place] [id number] Pulmonary Disease 02/17/20 Andrzej Garland MD [address] [place] [address] [place] [id number] Ophthalmology 04/07/20 Additional Source Comments The information contained in this document represents components of the legal health record. It is not the complete legal health record.[facility]
--- OUTSIDE RECORDS SUMMARY | 2025-05-23 01:01 | XMS_ITS | Encounter Summary ---
Author Organization [facility] Address [address] [place] [address] Phone Care Team Providers Care Shear Setter Name Role Phone Ted Pearl MD Primary Care Provider [phone] Sterling Ware MD Unavailable [phone] Tyrel Amaya MD Unavailable [phone] Andrzej Garland MD Unavailable [phone] Win Reyes PA-C Primary Care Provider [phone] Encounter Details Date Type Department Care Team (Latest Contact Info) Description 01/30/2025 Ancillary Orders [facility] Internal Medicine [address] [place], [place] [id number] Win Reyes PA-C [address] [place], [place] [id number] [email or web address] Fever, unspecified (Primary Dx) Social History Tobacco [...] Description 06/11/2025 7:20 AM EST Office Visit [facility] Internal Medicine [address] [place] [address] Win Reyes PA-C [address] [place], [place] [email or web address] 06/12/2025 9:00 AM EST Office Visit [facility] Rheumatology [address] [place] [address] Edie Pina MD [address] [facility], [address] [place] [address] [email or web address] documented as of this encounter Visit Diagnoses Diagnosis Fever, unspecified- Primary documented in this encounter Additional Health Concerns Assessment Noted Time PHQ-2 Depression Total Score: 0 12/14/19 2:46 PM EDT documented as of this encounter Care Teams Shear Setter Relationship Specialty Start Date End Date Ted Pearl MD [address] [place] [address] [email or web address] PCP - General Internal Medicine 12/18/19 04/21/25 Win Reyes PA-C [address] [place] [address] [email or web address] PCP - General Physician Capacitor Pack Press Operator 04/22/25 Sterling Ware MD [address] [place] [address] [email or web address] Dermatology 12/20/19 Tyrel Amaya MD [address] [place] [address] [place] [address] Pulmonary Disease 02/17/20 Andrzej Garland MD [address] [place] [address] Dr [place], [place] [address] Ophthalmology 04/07/20 documented as of this encounter Additional Source Comments The information contained in this document represents components of the legal health record. It is not the complete legal health record.[facility]
--- OUTSIDE RECORDS SUMMARY | 2025-05-23 01:02 | XMS_ITS | Encounter Summary ---
Author Organization [facility] Address [address] [address] Phone Care Team Providers Care Supervisor Paper Machine Name Role Phone Ted Pearl MD Primary Care Provider [phone] Sterling Ware MD Unavailable [phone] Tyrel Amaya MD Unavailable [phone] Andrzej Garland MD Unavailable [phone] Win Reyes PA-C Primary Care Provider [phone] Encounter Details Date Type Department Care Team (Late st Contact Info) Description 07/08/2022 Procedure Pass [facility], Ct Scan - [address] [address] Social History Tobacco Use Types Packs/Day Years [...] high school, GED, job training, learning the [place] language, technical skills, or developing parenting skills)? [...] Visit [facility] Internal Medicine [address] [place] [address] Win Reyes PA-C [address] [place] [address] 06/12/2025 9:00 AM EST Office Visit [facility] Rheumatology [address] [place] [address] Edie Pina MD [address] [facility], [address] [place] [address] [email or web address] documented as of this encounter Visit Diagnoses Not on filedocumented in this encounter Additional Health Concerns Infection Onset Date Last Indicated Resolved Time COVID-19 09/19/2023 09/19/2023 10/10/2023 1:2 1 AM EST CoV-Risk 11/07/2024 11/07/2024 11/18/2024 1:21 AM EDT Assessment Noted Time PHQ-2 Depression Total Score: 0 07/08/20 8:55 AM EST documented as of this encounter Care Teams Supervisor Paper Machine Relationship Specialty Start Date End Date Ted Pearl MD [address] [place] [address] PCP - General Internal Medicine 12/18/19 04/21/25 Win Reyes PA-C [address] [place] [address] PCP - General Physician Box Spinner 04/22/25 Sterling Ware MD [address] [place] [address] Dermatology 12/20/19 Tyrel Amaya MD [address] [place] [address] [place] [id number] Pulmonary Disease 02/17/20 Andrzej Garland MD [address] [place] [address] [place] [id number] Ophthalmology 04/07/20 documented as of this encounter Additional Source Comments The information contained in this document represents components of the legal health record. It is not the complete legal health record.[facility]
[2025-05-23] MEDS: Magnesium Sulfate/H2O 2 GM/50 ML PIGGYBACK IV (01:15)
--- NOTE | 2025-05-23 01:17 | ECG_ITS ---
Test Reason : SOB Blood Pressure : */* mmHG Vent. Rate : 113 BPM Atrial Rate : 113 BPM P-R Int : 130 ms QRS Dur : 82 ms QT Int : 378 ms P-R-T Axes : -5 11 56 degrees QTcB Int : 518 ms Sinus tachycardia Posterior infarct (cited on or before 02-Jan-2025) ST & T wave abnormality, consider lateral ischemia Abnormal ECG When compared with ECG of 23-Jan-2025 04:27, Premature atrial complexes are no longer Present Prominent ST depressions in the precordial leads Referred By: Meredith Gray Electronically Signed By: Young Bauman
--- NOTE | 2025-05-23 01:30 | PC.NURSE ---
confirmed IV ABX dose with MD Randolph
[2025-05-23 01:32] LABS: MANUAL DIFF FLAG NO; Venous Blood Gas Refer to POC result
[2025-05-23 01:34] LABS: Hematocrit 42.3 % (42.0-52.0); Hemoglobin 14.2 g/dl (14.0-18.0); Imm Gran Abs Auto 0.01 X10*3/uL (0.00-0.03); Imm Gran Pct Auto 0.1 % (0.0-0.4); Lymphocytes Absolute Auto 1.4 X10*3/uL (1.2-4.9); Mean Corpuscular HGB Conc 33.6 g/dl (31.0-36.0); Mean Corpuscular Hemoglobin 30.6 pg (27.0-33.0); Mean Corpuscular Volume 91.2 fL (80.0-98.0); NRBC Abs Auto 0.000 X10*3/uL (0.0-0.012); NRBC Pct Auto 0.0 /100WBC (0.0-0.2); Platelet Count 279 X10*3/uL (160-400); Red Blood Count 4.64 X10*6/uL (4.60-5.80); White Blood Count 9.0 X10*3/uL (4.8-10.8)
[2025-05-23 01:36] LABS: VBG HCO3 27 mmol/L (22-26); VBG O2 % Saturation 81.0 %
[2025-05-23] MEDS: Albuterol Sulfate 7.5 MG, Albuterol/Iprat 2.5/0.5MG 3 ML 3 ML INHALE (01:47)
[2025-05-23 01:53] LABS: NT Pro B Type Natriuretic Pept 372.0 pg/mL (<300); Troponin-I High Sensitivity 7.2 ng/L (<3.5-35.0)
[2025-05-23 02:00] LABS: Alanine Aminotransferase 27 U/L (0-40); Albumin Level 4.3 g/dL (3.5-5.0); Anion Gap 16 (12-20); Aspartate Amino Transferase 32 U/L (5-37); Blood Urea Nitrogen 18 mg/dL (9-16); Calcium 9.9 mg/dL (8.4-10.2); Carbon Dioxide 26 mmol/L (22-29); Chloride 103 mmol/L (96-108); Creatinine Clr Calc Pharmacy 62.7; Estimated Glomerular Filt Rate > 60; Potassium 3.6 mmol/L (3.3-5.1); Sodium 141 mmol/L (135-145); Total Protein 6.9 g/dL (6.5-8.0)
[2025-05-23 02:13] LABS: Alkaline Phosphatase 106 U/L (39-117)
[2025-05-23 02:16] LABS: Resp Syncy Virus RNA Qual PCR NEGATIVE (Negative); SARS COV2 PCR INHOUSE NEGATIVE (Negative)
--- NOTE | 2025-05-23 02:41 | ED.SOB ---
HPI - SOB/Dyspnea General Chief Complaint: Dyspnea Stated Complaint: COPD Time Seen by Provider: 05/23/25 00:47 Source: patient and EMS Mode of arrival: EMS Limitations: other History of Present Illness ED Provider: Dr. Meredith Gray HPI Narrative: Patient comes to the emergency room via ambulance. According to EMS, patient's called because patient was having severe shortness of breath despite multiple albuterol treatments. According to EMS, patient's oxygen saturation was in the 60s and put on CPAP. Even with CPAP, the patient's oxygen remained in the 70s to 80s. They were able to give him a DuoNeb treatment and came to the ED. According to the patient, he has been symptomatic with cough and shortness of breath for 3 hours. Patient denies chest pain. Patient denies fever chills. Related Data Home Medications ?Medication ?Instructions ?Recorded ?Confirmed hydroxychloroquine 200 mg tablet 200 mg PO BID 03/14/23 01/02/25 multivitamin 1 tab PO DAILY 03/21/23 01/02/25 acetaminophen 325 mg tablet 650 mg PO Q4H PRN Pain 12/11/24 01/02/25 (Tylenol) esomeprazole magnesium 40 mg 40 mg PO DAILY@1630 12/11/24 01/02/25 capsule,delayed release lactobacillus combination no.4 3 3,000 mmu cells PO DAILY 12/11/24 01/02/25 billion cell capsule (Probiotic) albuterol sulfate 90 mcg/actuation 2 puff inhalation Q6H PRN dyspnea 01/02/25 01/02/25 aerosol inhaler aspirin-caffeine 500 mg-32.5 mg 1 tab PO Q6H PRN Pain 01/02/25 01/02/25 tablet (Gary Back and [employer]) atenolol 50 mg tablet 50 mg PO DAILY 03/05/25 losartan 100 mg tablet 100 mg PO DAILY 04/30/25 Previous Rx's ?Medication ?Instructions ?Recorded walker #1 ea 06/24/24 atorvastatin 80 mg tablet 80 mg PO BEDTIME #30 tabs 01/06/25 omeprazole 40 mg capsule,delayed 40 mg PO DAILY@0630 #30 caps 01/06/25 release fluticasone furoate 200 1 inh inhalation DAILY #60 ea 04/15/25 mcg-vilanterol 25 mcg/dose inhalation powder (Breo Ellipta) Allergies Allergy/AdvReac Type Severity Reaction Status Date / Time ibuprofen Allergy Mild tongue Verified 05/23/25 01:28 swelling Review of Systems Review of Systems: Constitutional : No Weight loss, No Fever, No Chills, No Night Sweats, No Fatigue, No Malaise ENT/Mouth : No Hearing loss, No Ear Pain, No Nasal Congestion, No Sinus Pain, No Hoarseness, No sore throat, No Rhinorrhea, No Swallowing Difficulty Eyes: No Eye Pain, No Swelling, No Redness, No Foreign Body, No Discharge, No Vision Changes Cardiovascular : No Chest Pain, no edema or palpitations Respiratory : Complaining of cough, wheezing, shortness of breath Gastrointestinal : No Nausea, No Vomiting, No Diarrhea, No Constipation, No abdominal Pain, No Hematochezia, No Melena Genitourinary : no irregular bleeding, No Dysuria, No Urinary Frequency, No Hematuria, No Urinary Incontinence, No Urgency, No Flank Pain, No Urinary Flow Changes, No Hesitancy Musculoskeletal : No joint pain, No Myalgias, No Joint Swelling Skin : No Skin Lesions, No rash Neuro : No Weakness, No Numbness, No Paresthesias, No Loss of Consciousness, No Dizziness, No Headache Psych : No Anxiety/Panic, No Depression, No SI/HI/AH/VH, No Social Issues, Heme/Lymph: No Bruising, No Bleeding,No Lymphadenopathy Endocrine : No Polyuria, No Polydipsia, No Temperature Intolerance [facility] Past Medical History Medical History Emphysema lung Pneumonia involving left lung Personal history of nicotine dependence COPD (chronic obstructive pulmonary disease) Benign paroxysmal positional vertigo Tubular adenoma Lupus Pancreatic insufficiency Tubulovillous adenoma GERD (gastroesophageal reflux disease) HTN (hypertension) Surgical History Hx of tonsillectomy History of vasectomy History of colonoscopy History of left inguinal hernia repair History of esophagogastroduodenoscopy (EGD) Family History Family History Father HTN (hypertension) Mother Cancer Sister Cancer Social History Social History Household Members: Spouse Housing: House Do you presently have visiting nurse or other home services: No Alcohol intake: current Alcohol intake frequency: 0-2 drinks per day Alcohol type: beer Patient Tobacco Use Status: Former Tobacco user Smoked in Last 30 Days: No e-Cigarette/Vaping Use: Never Used Second Hand Smoke Exposure: No Use of substances other than those prescribed or required for medical reasons: No Advance Directives: Yes Advance Directives on File: Yes Advance Directives Date on File: 03/16/23 service: No Physical Exam Exam: Exam: Appearance: Alert. In respiratory distress Eyes: Pupils equal, round and reactive to light. ENT: Pharynx normal. Neck: Normal inspection. Neck supple. No lymph nodes noted. No crepitus CVS: Normal heart rate and rhythm. Pulses normal. Normal S1 and S2 Respiratory: Respiratory distress, tachypneic, respiratory rate in the 50s, oxygen saturation in the low 80s on 15 L Abdomen: Soft and nontender. No rigidity. No distention. Skin: Skin warm and dry. Normal skin color. Normal skin turgor. Extremities: No lower extremity edema. No Lacerations. No Rash Neuro: Oriented X 3. No motor deficit. No sensory deficit. Moving all extremities. No slurred speech. CN 2 through 12 grossly intact Psych: calm, cooperative, normal affect Vital Signs: Vital Signs: Last Vital Signs Temp 99.2 F 05/23/25 03:19 Pulse 96 05/23/25 03:54 Resp 28 H 05/23/25 03:54 BP 126/70 05/23/25 03:54 Pulse Ox 93 05/23/25 03:54 O2 Del Method Nasal Cannula 05/23/25 03:54 O2 Flow Rate 4 05/23/25 03:54 BMI result Body Mass Index 26.4 Course Course Course Narrative: Patient in moderate to severe respiratory distress, patient needed to be paced on BiPAP. Patient's pressure had to be titrated upwards to an inspiratory pressure of 20 and expiratory pressure of 10 with an FiO2 of 40% Patient states that he is prone to pneumonia. Patient receiving IV fluids and empiric treatment with antibiotics. Initially, patient was given IV ceftriaxone and azithromycin. However, when we got the patient's chest x-ray, patient is still on BiPAP, I decided to order Zosyn. Patient already received IV fluids based on ideal weight. All of the patient's labs pending, so far no episodes of hypotension. Medications Administered Discontinued Medications Generic Name Dose Route Start Last Admin Trade Name Munira PRN Reason Stop Dose Admin Ceftriaxone Sodium 1 gm 05/23/25 01:18 05/23/25 01:32 Ceftriaxone Sodium 1 Gm Vial IVPUSH 05/23/25 01:19 1 gm ONCE ONE Administration Albuterol Sulfate 7.5 mg/ 0 mg 05/23/25 01:43 05/23/25 01:47 Albuterol/Ipratropium 3 ml INHALE 05/23/25 01:44 10 each ONCE ONE Administration Magnesium Sulfate 2 gm in 50 mls @ 150 mls/hr 05/23/25 00:54 05/23/25 01:35 Magnesium Sulfate/H2o IV 05/23/25 01:13 Infused ONCE ONE Infusion Azithromycin 500 mg/ Sodium 250 mls @ 125 mls/hr 05/23/25 01:18 05/23/25 03:45 Chloride IV 05/23/25 03:17 Infused ONCE ONE Infusion Sodium Chloride 2,000 mls @ 999 mls/hr 05/23/25 01:19 05/23/25 03:00 Ns IVCONT 05/23/25 03:19 Infused .Q2H1M ONE Infusion Sodium Chloride 300 mls @ 999 mls/hr 05/23/25 01:34 05/23/25 03:00 Ns IVCONT 05/23/25 01:52 Infused .Q19M ONE Infusion Piperacillin Sod/Tazobactam 50 mls @ 100 mls/hr 05/23/25 01:35 05/23/25 02:37 Sod 3.375 gm/ Sodium Chloride IV 05/23/25 02:04 Infused ONCE ONE Infusion Methylprednisolone Sodium Succinate 125 mg 05/23/25 00:54 05/23/25 01:15 Methylprednisolone Sod Succ 125 Mg/2 Ml Vial IVPUSH 05/23/25 00:55 125 mg ONCE ONE Administration Medical Decision Making Medical Decision Making MDM Narrative: My interpretation of labs: No significant abnormality in patient's hematology, blood gases or chemistry. Patient's troponin 7.2, pro BNP 372, negative for patient's age. Serology negative for influenza RSV and COVID Chest x-ray shows a left lung consolidation consistent with multifocal pneumonia As mentioned above, patient has already been covered with IV fluids and antibiotics. We will attempt to wean off the patient from BiPAP. Answer couple of hours, we were able to successfully wean the patient off BiPAP. Patient is on 4 L nasal cannula saturating in the low 90s. Earlier today, sepsis alert was called because patient is on BiPAP. Patient's lactic acid, white blood cell count and vitals Corrigan's stable 04:00: FOCUS exam was performed I discussed the patient with our hospitalist, patient being admitted Patient agrees with plan. Differential Diagnosis Differential Diagnoses: The differential diagnosis associated with the presentation includes (Pneumonia, influenza, CHF, chronic lung disease exacerbation) Admission/Observation Consideration of admission/observation: Escalation of care including admission/observation considered Consult Healthcare Provider Management of the patient was discussed with: Hospitalist Lab Data MDM Lab Attestation statement: I reviewed the patient's lab results. 05/23/25 01:20 05/23/25 01:20 Labs: Lab Results 05/23/25 05/23/25 05/23/25 Range/Units 01:20 01:23 01:26 WBC 9.0 (4.8-10.8) X10*3/uL RBC 4.64 D (4.60-5.80) X10*6/uL Hgb 14.2 (14.0-18.0) g/dl Hct 42.3 D (42.0-52.0) % MCV 91.2 (80.0-98.0) fL MCH 30.6 (27.0-33.0) pg MCHC 33.6 (31.0-36.0) g/dl RDW 13.0 (11.0-16.0) % Plt Count 279 D (160-400) X10*3/uL MPV 8.7 L (9.4-12.4) fL Immature Gran % (Auto) 0.1 (0.0-0.4) % Neut % (Auto) 79.1 H (45-73) % Lymph % (Auto) 16.1 L (20-40) % [place] % (Auto) 3.5 (2-11) % Eos % (Auto) 0.4 (0-4) % Baso % (Auto) 0.8 (0-2) % Lymph # (Auto) 1.4 (1.2-4.9) X10*3/uL [place] # (Auto) 0.3 (0.1-1.2) X10*3/uL Eos # (Auto) 0.0 (0.0-0.4) X10*3/uL Baso # (Auto) 0.1 (0.0-0.2) X10*3/uL Abs Immat Gran (auto) 0.01 (0.00-0.03) X10*3/uL Absolute Neuts (auto) 7.1 (2.0-8.3) x10*3/uL Absolute Nucleated RBC 0.000 (0.0-0.012) X10*3/uL Nucleated RBC % (auto) 0.0 (0.0-0.2) /100WBC Hold Purple Top SEE NOTE Hold Blue Top SEE NOTE VBG pH (7.32-7.43) VBG pCO2 mmHg VBG pO2 mmHg VBG HCO3 (22-26) mmol/L VBG O2 Saturation % VBG Base Excess mmol/L Sodium 141 (135-145) mmol/L Potassium 3.6 (3.3-5.1) mmol/L Chloride 103 (96-108) mmol/L Carbon Dioxide 26 (22-29) mmol/L Anion Gap 16 (12-20) BUN 18 H (9-16) mg/dL Creatinine 1.01 (0.5-1.4) mg/dL Estim Creat Clear Calc 62.7 Estimated GFR > 60 Random Glucose 144 H (60-115) mg/dL Lactic Acid 1.9 (0.5-2.0) mmol/L Calcium 9.9 D (8.4-10.2) mg/dL Total Bilirubin 1.3 H (0.0-1.0) mg/dL Direct Bilirubin 0.5 (0.0-0.5) mg/dL AST 32 (5-37) U/L ALT 27 (0-40) U/L Alkaline Phosphatase 106 (39-117) U/L Troponin I High Sens Cancelled 7.2 D NT-Pro-B Natriuret Pep 372.0 H (<300) pg/mL Total Protein 6.9 (6.5-8.0) g/dL Albumin 4.3 (3.5-5.0) g/dL Influenza Type A (PCR) NEGATIVE (Negative) Influenza Type B (PCR) NEGATIVE (Negative) RSV RNA Qual (PCR) NEGATIVE (Negative) SARS-CoV-2 RNA (RT-PCR) NEGATIVE (Negative) 05/23/25 Range/Units 01:31 WBC (4.8-10.8) X10*3/uL RBC (4.60-5.80) X10*6/uL Hgb (14.0-18.0) g/dl Hct (42.0-52.0) % MCV (80.0-98.0) fL MCH (27.0-33.0) pg MCHC (31.0-36.0) g/dl RDW (11.0-16.0) % Plt Count (160-400) X10*3/uL MPV (9.4-12.4) fL Immature Gran % (Auto) (0.0-0.4) % Neut % (Auto) (45-73) % Lymph % (Auto) (20-40) % [place] % (Auto) (2-11) % Eos % (Auto) (0-4) % Baso % (Auto) (0-2) % Lymph # (Auto) (1.2-4.9) X10*3/uL [place] # (Auto) (0.1-1.2) X10*3/uL Eos # (Auto) (0.0-0.4) X10*3/uL Baso # (Auto) (0.0-0.2) X10*3/uL Abs Immat Gran (auto) (0.00-0.03) X10*3/uL Absolute Neuts (auto) (2.0-8.3) x10*3/uL Absolute Nucleated RBC (0.0-0.012) X10*3/uL Nucleated RBC % (auto) (0.0-0.2) /100WBC Hold Purple Top Hold Blue Top VBG pH 7.39 (7.32-7.43) VBG pCO2 44 mmHg VBG pO2 62 mmHg VBG HCO3 27 H (22-26) mmol/L VBG O2 Saturation 81.0 % VBG Base Excess 2.1 mmol/L Sodium (135-145) mmol/L Potassium (3.3-5.1) mmol/L Chloride (96-108) mmol/L Carbon Dioxide (22-29) mmol/L Anion Gap (12-20) BUN (9-16) mg/dL Creatinine (0.5-1.4) mg/dL Estim Creat Clear Calc Estimated GFR Random Glucose (60-115) mg/dL Lactic Acid (0.5-2.0) mmol/L Calcium (8.4-10.2) mg/dL Total Bilirubin (0.0-1.0) mg/dL Direct Bilirubin (0.0-0.5) mg/dL AST (5-37) U/L ALT (0-40) U/L Alkaline Phosphatase (39-117) U/L Troponin I High Sens NT-Pro-B Natriuret Pep (<300) pg/mL Total Protein (6.5-8.0) g/dL Albumin (3.5-5.0) g/dL Influenza Type A (PCR) (Negative) Influenza Type B (PCR) (Negative) RSV RNA Qual (PCR) (Negative) SARS-CoV-2 RNA (RT-PCR) (Negative) Independent Interpretation I performed an independent interpretation of an: EKG, Plain X-Ray and CT Scan Interpretation: My interpretation of EKG: Sinus tachycardia, heart rate 108, chronic ST segment depressions in V2 through V6, previously seen in EKGs of December of 2024, no acute changes, QTC 490 Radiology Impression Discussion of test interpretation with radiology: I have reviewed the radiologist's reading. Radiologist Impression: Consolidation throughout most of the left lung consistent with pneumonia. Asymmetric elevation of the left hemidiaphragm is stable. Right lung and right pleural space clear. No pleural effusion. IMPRESSION: 1. Left lung consolidation consistent with known multifocal pneumonia. There was a similar, albeit less extensive, pattern of pneumonia on 12/11/2024 examination. Multifocal consolidations, predominantly involving the left upper and lower lobes with mild airspace opacities in the right upper, middle, and lower lobes. No pleural effusion or pneumothorax. Normal thyroid. Normal cardiac morphology. Severe aortic root calcifications with probable proximal left coronary artery calcifications. Normal mediastinum. No acute fracture. 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 No acute abnormality in the upper abdomen. Bilateral simple renal cysts. Large periampullary duodenal diverticulum. IMPRESSION: Multifocal consolidations, predominantly involving the left lung, concerning formultifocal infection/pneumonia. Recommend 8 week follow-up chest radiograph to ensure resolution. Independent Historian Clinical information obtained from an independent historian. History obtained from or confirmed by: EMS External Record Review External record reviewed: Inpatient record Patient has had multiple hospitalizations for COPD/pneumonia Chronic Conditions Patient?s care impacted by: Other (COPD) Critical Care Time Critical Care Time Critical Care Time: Yes Total Critical Care Time: 60 Attestation: I have personally provided critical care time. Time includes review of lab data, radiology results, discussion with consultants, and monitoring for potential decompensation. Intervention performed as documented. Discharge Plan Discharge Clinical Impression: Recurrent pneumonia, Hypoxic respiratory failure Patient Disposition: Admitted As Inpatient
--- NOTE | 2025-05-23 03:22 | PC.NURSE ---
RT at bedside, BiPap removed, pt stating well on 4L NC, 94%. pt talking in clear full sentences, no increased WOB. denies SOB/CP
--- NOTE | 2025-05-23 03:57 | PC.NURSE ---
pt A/O, ambulates independently. requesting to walk to the bathroom, pt tolerated well with portable O2.
--- NOTE | 2025-05-23 04:29 | PM.IMHP ---
History of Present Illness Date of Service: 05/23/25 Attending physician on admission: Kurt Buck Chief Complaint: Shortness on breath Hardy Jackson is a very pleasant 70 years old man with past medical history significant for multiple pneumonias, COPD -no home oxygen, SLE on hydrochloroquine and essential hypertension presents to the emergency department complaining of shortness on breath that started last night associated with wheezing, chest tightness and dry cough. He does complain of chest congestion and suggestive fever. He did not report any gastrointestinal or genitourinary symptoms. Denied leg swelling. He is a former tobacco smoker -smoked for 30 years and quit about 10 years ago. Denied illicit drug use or alcohol abuse. He was found to have oxygen saturation in the 60s on room air by EMS. In the ED, he was found to have oxygen saturation 72% and was placed on BiPAP for about 2 hours. He was also found to have sinus tachycardia and tachypnea. Temperature is a 100.2 degrees. He is currently requiring 4 L/min supplemental oxygen via nasal cannula. Blood cultures are no leukocytosis. Hemoglobin and platelets are normal. VBG showed no respiratory acidosis. There are no electrolyte imbalances. BUN is 18 and creatinine 1.01. Glucose 144. Pro BNP is 372, troponin 7 point 2 and albumin 4.3. LFTs are essentially normal except for slight elevation of total bilirubin, 1.3. Chest CT scan with IV contrast showed multifocal consolidations, predominantly involving the left lung concerning for multifocal infectious/pneumonia. ECG showed sinus tachycardia with ST depressions in the anterolateral leads, these changes are old. He underwent a cardiac catheterization in January of this year and was found with no significant coronary artery disease. ED tx: Solu-Medrol 125 mg IV, azithromycin 500 mg IV NS 2.3 L bolus, Zosyn 3.375 IV, albuterol 7.5 mg/ipratropium 3 mL, magnesium 2 g IV, ceftriaxone 1 g IV Review of Systems Review of Systems: All 12 systems were reviewed and normal except as noted in HPI. [facility] [place] Medical History Emphysema lung Pneumonia involving left lung Personal history of nicotine dependence COPD (chronic obstructive pulmonary disease) Benign paroxysmal positional vertigo Tubular adenoma Lupus Pancreatic insufficiency Tubulovillous adenoma GERD (gastroesophageal reflux disease) HTN (hypertension) Family History Father HTN (hypertension) Mother Cancer Sister Cancer Surgical History Hx of tonsillectomy History of vasectomy History of colonoscopy History of left inguinal hernia repair History of esophagogastroduodenoscopy (EGD) Social History Household Members: Spouse Housing: House Do you presently have visiting nurse or other home services: No Alcohol intake: current Alcohol intake frequency: 0-2 drinks per day Alcohol type: beer Patient Tobacco Use Status: Former Tobacco user Smoked in Last 30 Days: No e-Cigarette/Vaping Use: Never Used Second Hand Smoke Exposure: No Use of substances other than those prescribed or required for medical reasons: No Advance Directives: Yes Advance Directives on File: Yes Advance Directives Date on File: 03/16/23 service: No Meds Allergies Allergy/AdvReac Type Severity Reaction Status Date / Time ibuprofen Allergy Mild tongue Verified 05/23/25 01:28 swelling Active Medications: Current Medications Acetaminophen (Acetaminophen 325 Mg Tablet) 975 mg PO Q6H PRN PRN Reason: Pain, Mild 1-3,fever,headache Albuterol Sulfate (Albuterol Sulfate (0.083%) 2.5 Mg/3 Ml Vial.Neb) 2.5 mg INHALE Q2H PRN PRN Reason: Shortness of Breath/Wheezing Albuterol/Ipratropium (Albuterol/Iprat 2.5/0.5mg 3 Ml Ampul.Neb) 3 ml INHALE RQ4H WHILE AWAKE CHRISTOPHER Calcium Carbonate (Calcium Carbonate 750 Mg Tab.Chew) 750 mg PO Q4H PRN PRN Reason: Heartburn Enoxaparin Sodium (Enoxaparin Sodium 40 Mg/0.4 Ml Syringe) 40 mg SUBCUT Q24H CHRISTOPHER Enoxaparin Sodium (Enoxaparin Sodium 40 Mg/0.4 Ml Syringe) 40 mg SUBCUT Q24H CHRISTOPHER Piperacillin Sod/Tazobactam (Sod 3.375 gm/ Sodium Chloride) 50 mls @ 100 mls/hr IV Q6H CHRISTOPHER Magnesium Hydroxide (Milk Of Magnesia 30 Ml Oral.Susp) 30 ml PO DAILY PRN PRN Reason: Constipation Melatonin (Melatonin 3 Mg Tablet) 6 mg PO BEDTIME PRN PRN Reason: Insomnia Methylprednisolone Sodium Succinate (Methylprednisolone Sod Succ 40 Mg/Ml Vial) 40 mg IVPUSH Q12H CHRISTOPHER Sodium Chloride (0.9 % Sodium Chloride Flush 3 Ml Syringe) 3 ml IVFLUSH QSHIFT CHRISTOPHER Home Medications ?Medication ?Instructions ?Recorded ?Confirmed ?Last Taken ?Type hydroxychloroquine 200 mg tablet 200 mg PO BID 03/14/23 01/02/25 01/01/25 History multivitamin 1 tab PO DAILY 03/21/23 01/02/25 01/01/25 History acetaminophen 325 mg tablet 650 mg PO Q4H PRN Pain 12/11/24 01/02/25 Unknown History (Tylenol) esomeprazole magnesium 40 mg 40 mg PO DAILY@1630 12/11/24 01/02/25 01/01/25 History capsule,delayed release lactobacillus combination no.4 3 3,000 mmu cells PO DAILY 12/11/24 01/02/25 01/01/25 History billion cell capsule (Probiotic) albuterol sulfate 90 mcg/actuation 2 puff inhalation Q6H PRN dyspnea 01/02/25 01/02/25 Unknown History aerosol inhaler aspirin-caffeine 500 mg-32.5 mg 1 tab PO Q6H PRN Pain 01/02/25 01/02/25 Unknown History tablet (Gary Back and Body) atenolol 50 mg tablet 50 mg PO DAILY 03/05/25 Unknown History losartan 100 mg tablet 100 mg PO DAILY 04/30/25 Unknown History Physical Exam Vital Signs and Narrative: Vital Signs: Last Vital Signs Temp 99.2 F 05/23/25 03:19 Pulse 96 05/23/25 03:54 Resp 28 H 05/23/25 03:54 BP 126/70 05/23/25 03:54 Pulse Ox 93 05/23/25 03:54 O2 Del Method Nasal Cannula 05/23/25 03:54 O2 Flow Rate 4 05/23/25 03:54 BMI result Body Mass Index 26.4 General: Alert, oriented, in no acute distress. Well nourished and cooperative. Afebrile. Speaking in complete sentences. HEENT: Head normocephalic, atraumatic. PER, EOMI. Sclerae anicteric, conjunctiva clear. Oropharynx without erythema or exudate. Mucous membranes moist. Neck: Supple, no lymphadenopathy, or JVD. Heart: RRR, no murmurs, rubs or gallops. Lungs: Tachypnea. Decreased left chest expansion. No use of accessory muscles. Left lung: Fine crackles over all rizo. Right lung: Clear. No wheezes or rhonchi. Normal respiratory effort. Abdomen: Soft, non tenderness, nondistended, normoactive bowel sounds. No hepatosplenomegaly, masses or masses. Extremities: No calf tenderness bilaterally, no swelling Musculoskeletal: Full range of motion. No joint swelling, deformity, or tenderness. Normal muscle tone and strength. Skin: Warm/Dry. No pallor. No jaundice. Lower extremities hyperpigmentation. Neurologic: Alert & oriented x4. Moving all extremities spontaneously. Normal speech. Psychological: Normal mood and affect. Thought process coherent. Results Labs 05/23/25 01:20 05/23/25 01:20 Labs: Laboratory Results - last 24 hr 05/23/25 05/23/25 05/23/25 01:20 01:23 01:26 MCV 91.2 MCH 30.6 MCHC 33.6 RDW 13.0 Plt Count 279 D MPV 8.7 L Immature Gran % (Auto) 0.1 Neut % (Auto) 79.1 H Lymph % (Auto) 16.1 L Cascade % (Auto) 3.5 Eos % (Auto) 0.4 Baso % (Auto) 0.8 Lymph # (Auto) 1.4 Cascade # (Auto) 0.3 Eos # (Auto) 0.0 Baso # (Auto) 0.1 Abs Immat Gran (auto) 0.01 Absolute Neuts (auto) 7.1 Absolute Nucleated RBC 0.000 Nucleated RBC % (auto) 0.0 Hold Purple Top SEE NOTE Hold Blue Top SEE NOTE VBG pH VBG pCO2 VBG pO2 VBG HCO3 VBG O2 Saturation VBG Base Excess Anion Gap 16 Estim Creat Clear Calc 62.7 Estimated GFR > 60 Random Glucose 144 H Lactic Acid 1.9 Calcium 9.9 D Total Bilirubin 1.3 H Direct Bilirubin 0.5 AST 32 ALT 27 Alkaline Phosphatase 106 Troponin I High Sens Cancelled 7.2 D NT-Pro-B Natriuret Pep 372.0 H Total Protein 6.9 Albumin 4.3 Influenza Type A (PCR) NEGATIVE Influenza Type B (PCR) NEGATIVE RSV RNA Qual (PCR) NEGATIVE SARS-CoV-2 RNA (RT-PCR) NEGATIVE 05/23/25 01:31 MCV MCH MCHC RDW Plt Count MPV Immature Gran % (Auto) Neut % (Auto) Lymph % (Auto) Cascade % (Auto) Eos % (Auto) Baso % (Auto) Lymph # (Auto) Cascade # (Auto) Eos # (Auto) Baso # (Auto) Abs Immat Gran (auto) Absolute Neuts (auto) Absolute Nucleated RBC Nucleated RBC % (auto) Hold Purple Top Hold Blue Top VBG pH 7.39 VBG pCO2 44 VBG pO2 62 VBG HCO3 27 H VBG O2 Saturation 81.0 VBG Base Excess 2.1 Anion Gap Estim Creat Clear Calc Estimated GFR Random Glucose Lactic Acid Calcium Total Bilirubin Direct Bilirubin AST ALT Alkaline Phosphatase Troponin I High Sens NT-Pro-B Natriuret Pep Total Protein Albumin Influenza Type A (PCR) Influenza Type B (PCR) RSV RNA Qual (PCR) SARS-CoV-2 RNA (RT-PCR) Assessment and Plan (1) Acute respiratory failure with hypoxia: Status: Resolved (2) COPD exacerbation: Status: Resolved (3) Multifocal pneumonia: Status: Acute Plan Hardy Jackson is a 70 y/o man with a PMHx significant for multiple pneumonias presents with: Acute hypoxic respiratory failure secondary to left lung multifocal pneumonia and acute COPD exacerbation. Telemetry. Pulse oximetry. Supplemental O2 to keep O2 sats> 90%. Empiric IV antibiotic therapy with Zosyn. Continue IV steroids and bronchodilator therapy. Essential hypertension. Continue home meds. SLE. Continue hydrochloroquine. med rec pending Code status: Full DVT prophylaxis: Lovenox Patient will need hospitalization for at least 2 midnights for acute hypoxic respiratory failure, COPD exacerbation and pneumonia treatment with supplemental oxygen, IV steroids, IV steroids and IV antibiotics. This documentation was generated using dictation software; minor spreading or automobile and property underwriter errors may be present. Quality Stroke Does the patient have a stroke diagnosis?: No VTE Prior VTE?: No VTE Risk Level:: Medical - moderate - high VTE Device Contraindication: Treatment Not Indicated VTE Drug Contraindication: N/A - Med Ordered
--- NOTE | 2025-05-23 05:21 | HO.NURTONUR ---
pt BIBA from home, reporting increased SOB last night, 60% RA for EMS. upon ED arrival, pt placed on BiPap for 2 hours, elevated RR and HR. pt taken off Bipap and now tolerating NC well at 4L. CXR/CT: Pneumonia. hx COPD, no baseline O2. sepsis work up completed, lactic 1.9. bilateral 20g IVs- R wrist, L forearm. VSS- 93% on 4L nc. pt A/O x4, calm and cooperative with care, ambulates independently at baseline. pt talking in full clear sentences, no increased WOB at this time. ADMIT: resp failure with hypoxia, COPD exacerbation, pneumonia
[2025-05-23 06:33] LABS: Troponin-I High Sensitivity 106.6 ng/L (<3.5-35.0)
[2025-05-23] MEDS: Albuterol/Iprat 2.5/0.5MG 3 ML AMPUL.NEB INHALE ×3 (07:43→15:23)
--- NOTE | 2025-05-23 08:16 | PHA.MEDREC ---
Addendum entered by Pillo Acuña RPh 05/23/25 08:23: MED REC REVIEWED BY [facility] Original Note: Pharmacy Consult ? Medication Reconciliation Pharmacy has completed the medication reconciliation. Spoke to patient at bedside to confirm med list. had a list of patients medications on her phone. Patient last had his medications yesterday at 4:00pm.
--- NOTE | 2025-05-23 08:20 | PC.NURSE ---
assumed care of patient at 0700, patient is awake, alert and oriented x3. patient is currently on 4lNC, satting 93%. patient sat up on the edge of the bed and ate breakfast, patient given items to do ADLS, washed up in bathroom, brushed teeth. patient is at bedside, resp even and unlabored, VSS at this time. medicated per OCT.
--- NOTE | 2025-05-23 09:26 | PM.EVENT ---
Event Note Date of Service: 05/23/25 Event Note: Patient seen and examined with the hospice service this morning, seen and examined again Shortness of breaths somewhat improving but still short of breath with exertion Rest of the management including physical exam and management as per H&P note. Continue IV antibiotics, taper oxygen. Time Spent With Patient Time: Total time managing care of this patient today ____ minutes.
[2025-05-23] MEDS: Aspirin Enteric Coated 81 MG TABLET.DR 162 MG PO (10:33)
--- NOTE | 2025-05-23 11:39 | MHC.CM.PN ---
IMM 05/23/25, Pt. lives with his , he does not use home health services or DME. PCP is confirmed: Ted Pearl, HCP is on file, names his , Nay. Pt. is able to arrange a ride home at [place], DCP: home, self care, CM to follow for DC needs.
--- NOTE | 2025-05-23 11:49 | PM.CNCAR ---
History of Present Illness History of Present Illness Date of Service: 05/23/25 Chief complaint: acute hypoxic respiratory failure, left lung pneum Narrative: [age] year gentleman who we have been asked to see for elevated troponin. He is presenting with pneumonia. He has multiple pneumonias in the past involving the left lung. He was seen in January when he presented with similar presentation but had dynamic EKG changes and was transferred to [facility] where cardiac catheterization was done showing no coronary disease. He has mildly elevated troponin levels at this point. He is denying any chest discomfort. He is saying that he was short of breath suddenly and then started having coughing episodes which brought him to the hospital. His imaging is showing left-sided pneumonia. He is on antibiotics and feeling better. He has been following closely with pulmonology. [facility] Past Medical History Medical History Emphysema lung Pneumonia involving left lung Personal history of nicotine dependence COPD (chronic obstructive pulmonary disease) Benign paroxysmal positional vertigo Tubular adenoma Lupus Pancreatic insufficiency Tubulovillous adenoma GERD (gastroesophageal reflux disease) HTN (hypertension) Family History Family History Father HTN (hypertension) Mother Cancer Sister Cancer Surgical History Surgical History Hx of tonsillectomy History of vasectomy History of colonoscopy History of left inguinal hernia repair History of esophagogastroduodenoscopy (EGD) Social History Social History Household Members: Spouse Housing: House Do you presently have visiting nurse or other home services: No Alcohol intake: current Alcohol intake frequency: 0-2 drinks per day Alcohol type: beer Patient Tobacco Use Status: Former Tobacco user Smoked in Last 30 Days: No e-Cigarette/Vaping Use: Never Used Second Hand Smoke Exposure: No Use of substances other than those prescribed or required for medical reasons: No Advance Directives: Yes Advance Directives on File: Yes Advance Directives Date on File: 03/16/23 service: No Meds Allergies Allergy/AdvReac Type Severity Reaction Status Date / Time ibuprofen Allergy Mild tongue Verified 05/23/25 01:28 swelling Active Medications: Current Medications Acetaminophen (Acetaminophen 325 Mg Tablet) 975 mg PO Q6H PRN PRN Reason: Pain, Mild 1-3,fever,headache Albuterol Sulfate (Albuterol Sulfate (0.083%) 2.5 Mg/3 Ml Vial.Neb) 2.5 mg INHALE Q2H PRN PRN Reason: Shortness of Breath/Wheezing Albuterol/Ipratropium (Albuterol/Iprat 2.5/0.5mg 3 Ml Ampul.Neb) 3 ml INHALE RQ4H WHILE AWAKE [facility] Last Admin: 05/23/25 11:23 Dose: 3 ml Aspirin (Aspirin Enteric Coated 81 Mg Tablet.Dr) 81 mg PO DAILY CHRISTOPHER Atenolol (Atenolol 50 Mg Tablet) 50 mg PO DAILY [facility]; Protocol Last Admin: 05/23/25 10:34 Dose: 50 mg Atorvastatin Calcium (Atorvastatin Calcium 80 Mg Tablet) 80 mg PO BEDTIME CHRISTOPHER Calcium Carbonate (Calcium Carbonate 750 Mg Tab.Chew) 750 mg PO Q4H PRN PRN Reason: Heartburn Enoxaparin Sodium (Enoxaparin Sodium 40 Mg/0.4 Ml Syringe) 40 mg SUBCUT Q24H [facility] Last Admin: 05/23/25 10:35 Dose: 40 mg Fluticasone/Vilanterol (Fluticasone/Vilanterol 200/25 Blst.W.Dev) 1 puff INHALE RDAILY [facility] Guaifenesin/Codeine Phosphate (Guaifen/Codeine Sf 200/20/10ml 10 Ml Liquid) 5 ml PO Q6H PRN PRN Reason: Cough Hydroxychloroquine Sulfate (Hydroxychloroquine Sulfate 200 Mg Tablet) 200 mg PO BID [facility] Piperacillin Sod/Tazobactam (Sod 3.375 gm/ Sodium Chloride) 50 mls @ 100 mls/hr IV Q6H [facility] Last Infusion: 05/23/25 09:36 Dose: Infused Losartan Potassium (Losartan Potassium 50 Mg Tablet) 100 mg PO DAILY CHRISTOPHER; Protocol Magnesium Hydroxide (Milk Of Magnesia 30 Ml Oral.Susp) 30 ml PO DAILY PRN PRN Reason: Constipation Melatonin (Melatonin 3 Mg Tablet) 6 mg PO BEDTIME PRN PRN Reason: Insomnia Methylprednisolone Sodium Succinate (Methylprednisolone Sod Succ 40 Mg/Ml Vial) 40 mg IVPUSH Q12H [facility] Multivitamins/Vitamin C (Multivitamin Tablet) 1 tab PO DAILY [facility] Omeprazole (Omeprazole 20 Mg Capsule.) 20 mg PO DAILY@1630 [facility] Sodium Chloride (0.9 % Sodium Chloride Flush 3 Ml Syringe) 3 ml IVFLUSH QSHIFT [facility] Last Admin: 05/23/25 08:24 Dose: Not Given Home Medications ?Medication ?Instructions ?Recorded ?Confirmed ?Last Taken ?Type hydroxychloroquine 200 mg tablet 200 mg PO BID 03/14/23 05/23/25 05/22/25 History multivitamin 1 tab PO DAILY 03/21/23 05/23/25 05/22/25 History acetaminophen 325 mg tablet 650 mg PO Q4H PRN Pain 12/11/24 05/23/25 Unknown History (Tylenol) esomeprazole magnesium 40 mg 40 mg PO DAILY@1630 12/11/24 05/23/25 05/22/25 History capsule,delayed release lactobacillus combination no.4 3 3,000 mmu cells PO DAILY 12/11/24 05/23/25 05/22/25 History billion cell capsule (Probiotic) albuterol sulfate 90 mcg/actuation 2 puff inhalation Q6H PRN dyspnea 01/02/25 05/23/25 Unknown History aerosol inhaler aspirin-caffeine 500 mg-32.5 mg 1 tab PO Q6H PRN Pain 01/02/25 05/23/25 Unknown History tablet (Gary Back and Body) atenolol 50 mg tablet 50 mg PO DAILY 03/05/25 05/23/25 05/22/25 History losartan 100 mg tablet 100 mg PO DAILY 04/30/25 05/23/25 05/22/25 History fluticasone furoate 200 1 ea inhalation DAILY 05/23/25 05/23/25 05/22/25 History mcg-vilanterol 25 mcg/dose inhalation powder (Breo Ellipta) Physical Exam Vital Signs: Vital Signs: Last Vital Signs Temp 98.2 F 05/23/25 07:54 Pulse 76 05/23/25 11:24 Resp 20 05/23/25 11:24 BP 138/73 05/23/25 07:54 Pulse Ox 94 05/23/25 07:54 O2 Del Method Nasal Cannula 05/23/25 07:54 O2 Flow Rate 3 05/23/25 07:54 BMI result Body Mass Index 26.4 GENERAL APPEARANCE: in no acute distress, pleasant. NECK: no carotid bruit, no jugular venous distention. SKIN: no suspicious lesions, warm and dry. HEART: no murmurs, regular rate and rhythm. LUNGS: clear to auscultation bilaterally. ABDOMEN: soft, nontender. EXTREMITIES: no edema. PERIPHERAL PULSES: equal. NEUROLOGIC: No gross deficits, AAO X 3 Objective Labs and Meds 05/23/25 01:20 05/23/25 01:20 Lab results: Laboratory Results - last 24 hr 05/23/25 05/23/25 05/23/25 01:20 01:23 01:26 WBC 9.0 RBC 4.64 D Hgb 14.2 Hct 42.3 D MCV 91.2 MCH 30.6 MCHC 33.6 RDW 13.0 Plt Count 279 D MPV 8.7 L Immature Gran % (Auto) 0.1 Neut % (Auto) 79.1 H Lymph % (Auto) 16.1 L Hart % (Auto) 3.5 Eos % (Auto) 0.4 Baso % (Auto) 0.8 Lymph # (Auto) 1.4 Hart # (Auto) 0.3 Eos # (Auto) 0.0 Baso # (Auto) 0.1 Abs Immat Gran (auto) 0.01 Absolute Neuts (auto) 7.1 Absolute Nucleated RBC 0.000 Nucleated RBC % (auto) 0.0 Hold Purple Top SEE NOTE Hold Blue Top SEE NOTE VBG pH VBG pCO2 VBG pO2 VBG HCO3 VBG O2 Saturation VBG Base Excess Sodium 141 Potassium 3.6 Chloride 103 Carbon Dioxide 26 Anion Gap 16 BUN 18 H Creatinine 1.01 Estim Creat Clear Calc 62.7 Estimated GFR > 60 Random Glucose 144 H Lactic Acid 1.9 Calcium 9.9 D Total Bilirubin 1.3 H Direct Bilirubin 0.5 AST 32 ALT 27 Alkaline Phosphatase 106 Troponin I High Sens Cancelled 7.2 D NT-Pro-B Natriuret Pep 372.0 H Total Protein 6.9 Albumin 4.3 Influenza Type A (PCR) NEGATIVE Influenza Type B (PCR) NEGATIVE RSV RNA Qual (PCR) NEGATIVE SARS-CoV-2 RNA (RT-PCR) NEGATIVE 05/23/25 05/23/25 01:31 05:41 WBC RBC Hgb Hct MCV MCH MCHC RDW Plt Count MPV Immature Gran % (Auto) Neut % (Auto) Lymph % (Auto) Hart % (Auto) Eos % (Auto) Baso % (Auto) Lymph # (Auto) Hart # (Auto) Eos # (Auto) Baso # (Auto) Abs Immat Gran (auto) Absolute Neuts (auto) Absolute Nucleated RBC Nucleated RBC % (auto) Hold Purple Top Hold Blue Top VBG pH 7.39 VBG pCO2 44 VBG pO2 62 VBG HCO3 27 H VBG O2 Saturation 81.0 VBG Base Excess 2.1 Sodium Potassium Chloride Carbon Dioxide Anion Gap BUN Creatinine Estim Creat Clear Calc Estimated GFR Random Glucose Lactic Acid Calcium Total Bilirubin Direct Bilirubin AST ALT Alkaline Phosphatase Troponin I High Sens 106.6 H* D NT-Pro-B Natriuret Pep Total Protein Albumin Influenza Type A (PCR) Influenza Type B (PCR) RSV RNA Qual (PCR) SARS-CoV-2 RNA (RT-PCR) Assessment and Plan (1) Elevated troponin: Status: Acute Plan Mildly elevated troponins in his 70 year gentleman presenting with multifocal pneumonia. He has had multiple episodes of pneumonia previously. He has acid reflux which could be 1 potential problem. He is saying pulmonology and has been following closely with them. Mild troponin elevation is linked with the pneumonia and sepsis and does not need further testing. He already had echocardiography done which we will review. No further recommendations currently. He had cardiac catheterization in January 2025 which did not show any significant coronary disease. Signing off for now. Thank you for allowing me to participate in the care of your patient. Please feel free to contact me if you have any questions. Procedures Date of Service Date of Service: 05/23/25
--- NOTE | 2025-05-23 12:00 | CA_ITS ---
Transthoracic Echocardiogram Patient (Last, First, Middle): Hardy Jackson M Gender: Male Date of : 1955 Age: 70 Procedure Date: 05/23/2025 Procedure Type: Transthoracic Echocardiogram Location: ER Height: 170.18 cm Weight: 76.2 kg BSA: 1.88 m2 Heart Rate: 77 bpm BP: 138 / 73 mmHg Software Solutions Architect: SB Referring MD: Nathaniel Campuzano MD Symptoms: elevated trop Study Quality: Adequate w contrast ECG Rhythm: Sinus Conclusions: - Normal left ventricular size and systolic function. There is mildly increased left ventricular wall thickness. The visually estimated ejection fraction is between 65-70%. - E/E prime ratio is between 8 and 15 consistent with indeterminate filling pressures. - Normal right ventricular cavity size and systolic function. - The left atrium is moderately dilated. - Moderately elevated right atrial pressure. Mild to moderate pulmonary hypertension is present. Findings Procedure Information Contrast agent, definity, is being given per protocol without apparent complications. Left Ventricle Normal left ventricular size and systolic function. There is mildly increased left ventricular wall thickness. The visually estimated ejection fraction is between 65-70%. There is no evidence of regional wall motion abnormalities. Abnormal diastolic function is noted. Spectral Doppler is indicative of an impaired relaxation filling pattern. E/E prime ratio is between 8 and 15 consistent with indeterminate filling pressures. Right Ventricle Normal right ventricular cavity size and systolic function. Atria The left atrium is moderately dilated. The right atrium is mildly dilated. Aortic Valve Normal aortic valve structure and function. There is no aortic valve stenosis. There is no aortic valve regurgitation. Mitral Valve The mitral valve appears normal. There is no mitral valve regurgitation. There is no mitral valve stenosis. Pulmonic Valve The pulmonic valve is normal. There is no pulmonic valve regurgitation. Tricuspid Valve Normal tricuspid valve structure. There is no tricuspid valve regurgitation. The right ventricular systolic pressure is 47 mmHg. Moderately elevated right atrial pressure. Mild to moderate pulmonary hypertension is present. Great Vessels All visible segments of the aorta are normal in size. The visualized portions of the pulmonary artery and branches are normal. Venous The inferior vena cava is dilated and collapses greater than 50% with inspiration. Pericardium/Pleural There is no evidence of pericardial effusion. Prior Study Comparison No significant change compared to prior study dated: 01/03/2025. Measurements 2D Linear Measurements IVSd: 1.23 0.6-0.9/0.6-1.0 cm LVIDd: 4.99 3.9-5.3/4.2-5.9 cm LVIDd Index: 2.65 2.4-3.2/2.2-3.1 cm/m2 LVIDs: 3.21 2.0-3.6 cm LA Diam: 3.80 2.7-3.8/3.0-4.0 cm LAIDs Index: 2.02 1.5-2.3 cm/m2 LVOT Diam: 2.20 3.0+(-)1.3 cm 2D Systolic Function EF 4C: 71.40 >55% EF 2C: 79.40 >55% EF BiP: 74.30 >55% Mitral Valve MV Pk E: 0.76 MV PK A: 0.75 MV Decel Time: 209.00 E/A: 1.00 E'Lateral: 5.77 E'Medial: 7.94 E/E' Med: 9.50 E/E' Lat: 13.10 PHT: 61.00 MVA PHT: 3.61 Decel [place]: 3.61 Aortic Valve AoV Pk Edy: 1.36 AoV Pk Grad: 7.00 ANTHONY: 3.65 LVOT LVOT Pk Edy: 1.26 LVOT Mn Edy: 0.86 LVOT VTI: 0.22 LVOT Pk Grad: 6.00 LVOT Mn Grad: 4.00 LVOT Diam: 2.20 LVOT Area: 3.80 Diastolic Function MV Pk E: 0.76 MV Pk A: 0.75 E/A: 1.00 E'Medial: 7.94 E/E' Med: 9.50 E' Laterial: 5.77 E/E' Lat: 13.10 Right Ventricle TAPSE (mm): 25.70 TVS' Edy: 17.70 Tricuspid Valve TR Pk Edy: 2.83 TR Pk Grad: 32.00 RA Press: 15.00 RVSP: 47.00 Great Vessels Aorta Sinus of Valsalva: 3.90 2.0-3.5 cm Ao Asc: 3.70 2.1-3.4 cm Ao Arch: 3.50 Pulmonary Veins Pulm Vein S/D 2.00 Pulmonary Valve PV Pk Edy: 0.77 Peak PV Grad: 2.00 Updated in Other Vendor System with Status of Final Young Bauman MD electronically signed on 05/24/2025 3:00:22 PM with status of Final
[2025-05-23 12:32] LABS: Troponin-I High Sensitivity 47.2 ng/L (<3.5-35.0)
--- NOTE | 2025-05-23 13:05 | PC.NURSE ---
inpatient attending removed patients oxygen, patient satting 95% on room air. patient is not on o2 at baseline
[2025-05-23] MEDS: 0.9 % Sodium Chloride Flush 3 ML SYRINGE IVFLUSH (16:11)
--- NOTE | 2025-05-23 17:23 | PC.NURSE ---
Assumed care of pt, able to make needs known at this time. Speaking clearly in full sentences, resp even, nonlaboured, VSS, skin pwd. Ambulating in hallway with no issue. Remains off O2. Denies pain, discomfort. PIVs patent. Aware of plan for care.
--- NOTE | 2025-05-23 21:05 | HO.NURTONUR ---
Pt was medicated per oct. RN requested a hospital bed; RN was able to switch pt from a stretcher to a hospital bed. Pt ambulated to the bathroom independently.. Able to make needs known. Call acosta within reach, bed at lowest position.
[2025-05-24] VITALS (10 sets, daily range): BP systolic 104–156; BP diastolic 56–82; PULSE 61–84; RESP 16–18; TEMP 36.3–37; O2SAT 92–98; BMI 26.1
--- NOTE | 2025-05-24 | ECG_ITS ---
Test Reason : ECG changes Blood Pressure : */* mmHG Vent. Rate : 63 BPM Atrial Rate : 63 BPM P-R Int : 118 ms QRS Dur : 116 ms QT Int : 486 ms P-R-T Axes : 111 16 127 degrees QTcB Int : 497 ms Normal sinus rhythm Lateral infarct , age undetermined Abnormal ECG When compared with ECG of 23-May-2025 01:36, Vent. rate has decreased by [address] no longer depressed in Anterior leads T wave inversion no longer evident in Anterior leads Referred By: Young Bauman Electronically Signed By: Young Bauman
[2025-05-24] MEDS: 0.9 % Sodium Chloride Flush 3 ML SYRINGE IVFLUSH ×4 (01:10→19:50)
[2025-05-24 07:10] LABS: Hematocrit 34.9 % (42.0-52.0); Hemoglobin 11.6 g/dl (14.0-18.0); Mean Corpuscular HGB Conc 33.2 g/dl (31.0-36.0); Mean Corpuscular Hemoglobin 30.8 pg (27.0-33.0); Mean Corpuscular Volume 92.6 fL (80.0-98.0); NRBC Abs Auto 0.000 X10*3/uL (0.0-0.012); NRBC Pct Auto 0.0 /100WBC (0.0-0.2); Platelet Count 176 X10*3/uL (160-400); Red Blood Count 3.77 X10*6/uL (4.60-5.80); White Blood Count 16.7 X10*3/uL (4.8-10.8)
[2025-05-24 07:29] LABS: Atypical Lymph Absolute Manual 0.2 x10*3/uL; Atypical Lymphs Percent Manual 1 % (0-6); Band Neutrophils Percent 6 % (3-5); Lymphocytes Absolute Manual 0.5 X10*3/uL (1.2-4.9); Lymphocytes Percent Manual 3 % (20-40); Monocytes Absolute Manual 0.3 X10*3/uL (0.1-1.2); Monocytes Percent Manual 2 % (2-11); Neutrophils Absolute Manual 15.7 X10*3/uL (2.0-8.3); Neutrophils Percent Manual 88 % (45-73)
[2025-05-24 07:31] LABS: Acanthocytes 2+ (3-5) /OIF; Burr Cells 2+ (3-5) /OIF; Large Platelet PRESENT; RBC Morphology NOTED; Toxic Vacuolation PRESENT
[2025-05-24] MEDS: Aspirin Enteric Coated 81 MG TABLET.DR PO (07:36)
[2025-05-24 07:41] LABS: Anion Gap 14 (12-20); Blood Urea Nitrogen 16 mg/dL (9-16); Calcium 9.6 mg/dL (8.4-10.2); Carbon Dioxide 21 mmol/L (22-29); Chloride 107 mmol/L (96-108); Creatinine Clr Calc Pharmacy 102.1; Estimated Glomerular Filt Rate > 60; Potassium 3.6 mmol/L (3.3-5.1); Sodium 138 mmol/L (135-145)
[2025-05-24] MEDS: Albuterol/Iprat 2.5/0.5MG 3 ML AMPUL.NEB INHALE ×4 (07:51→20:00)
--- NOTE | 2025-05-24 08:19 | P.PNIM_ITS ---
Subjective Subjective Date of Service: 05/25/25 Interval History: pneumonia Review of Systems sob improving has cough Review of Systems: Yes all other systems are reviewed and are negative Physical Exam 2 Exam: Exam: Appearance: Alert.? Oriented X3.? cvs: rrr, [id number] , no murmur res: air entry diminshed , has diminshed breath sounds left>right. abd: no rebound or guarding ,nt, bs present. ext pulses present , no cyanosis . neuro: axo3 , nonfocal. Vital Signs: Vital Signs: Last Vital Signs Temp 97.4 F 05/24/25 07:23 Pulse 61 05/24/25 07:51 Resp 18 05/24/25 07:51 BP 156/73 H 05/24/25 07:23 Pulse Ox 94 05/24/25 07:23 O2 Del Method Room Air 05/24/25 07:23 O2 Flow Rate 3 05/23/25 07:54 BMI result Body Mass Index 26.1 Objective Data Active Medications Acetaminophen (Acetaminophen 325 Mg Tablet) 975 mg PO Q6H PRN PRN Reason: Pain, Mild 1-3,fever,headache Albuterol Sulfate (Albuterol Sulfate (0.083%) 2.5 Mg/3 Ml Vial.Neb) 2.5 mg INHALE Q2H PRN PRN Reason: Shortness of Breath/Wheezing Albuterol/Ipratropium (Albuterol/Iprat 2.5/0.5mg 3 Ml Ampul.Neb) 3 ml INHALE RQ4H WHILE AWAKE [facility] Last Admin: 05/24/25 07:51 Dose: 3 ml Documented By: MARISABEL Aspirin (Aspirin Enteric Coated 81 Mg Tablet.Dr) 81 mg PO DAILY [facility] Last Admin: 05/24/25 07:36 Dose: 81 mg Documented By: MARTINA Atenolol (Atenolol 50 Mg Tablet) 50 mg PO DAILY [facility]; Protocol Last Admin: 05/24/25 07:35 Dose: 50 mg Documented By: MARTINA Atorvastatin Calcium (Atorvastatin Calcium 80 Mg Tablet) 80 mg PO BEDTIME [facility] Last Admin: 05/23/25 20:45 Dose: 80 mg Documented By: PAULO Calcium Carbonate (Calcium Carbonate 750 Mg Tab.Chew) 750 mg PO Q4H PRN PRN Reason: Heartburn Enoxaparin Sodium (Enoxaparin Sodium 40 Mg/0.4 Ml Syringe) 40 mg SUBCUT Q24H [facility] Last Admin: 05/23/25 10:35 Dose: 40 mg Documented By: INDU Fluticasone/Vilanterol (Fluticasone/Vilanterol 200/25 Blst.W.Dev) 1 puff INHALE RDAILY [facility] Guaifenesin/Codeine Phosphate (Guaifen/Codeine Sf 200/20/10ml 10 Ml Liquid) 5 ml PO Q6H PRN PRN Reason: Cough Hydroxychloroquine Sulfate (Hydroxychloroquine Sulfate 200 Mg Tablet) 200 mg PO BID [facility] Last Admin: 05/24/25 07:35 Dose: 200 mg Documented By: MARTINA Piperacillin Sod/Tazobactam (Sod 3.375 gm/ Sodium Chloride) 50 mls @ 100 mls/hr IV Q6H [facility] Last Admin: 05/24/25 07:39 Dose: 100 mls/hr Documented By: MARTINA Losartan Potassium (Losartan Potassium 50 Mg Tablet) 100 mg PO DAILY [facility]; Protocol Last Admin: 05/24/25 07:35 Dose: 100 mg Documented By: MARTINA Magnesium Hydroxide (Milk Of Magnesia 30 Ml Oral.Susp) 30 ml PO DAILY PRN PRN Reason: Constipation Melatonin (Melatonin 3 Mg Tablet) 6 mg PO BEDTIME PRN PRN Reason: Insomnia Last Admin: 05/23/25 20:48 Dose: 6 mg Documented By: PAULO Methylprednisolone Sodium Succinate (Methylprednisolone Sod Succ 40 Mg/Ml Vial) 40 mg IVPUSH Q12H [facility] Last Admin: 05/24/25 01:53 Dose: 40 mg Documented By: SHARMIN Multivitamins/Vitamin C (Multivitamin Tablet) 1 tab PO DAILY [facility] Last Admin: 05/24/25 07:36 Dose: 1 tab Documented By: MARTINA Omeprazole (Omeprazole 20 Mg Capsule.) 20 mg PO DAILY@1630 [facility] Last Admin: 05/23/25 16:07 Dose: 20 mg Documented By: MARCI Sodium Chloride (0.9 % Sodium Chloride Flush 3 Ml Syringe) 3 ml IVFLUSH QSHIFT [facility] Last Admin: 05/24/25 07:36 Dose: 3 ml Documented By: MARTINA Labs 05/24/25 06:30 05/24/25 06:30 Labs: Laboratory Results - last 24 hr 05/23/25 05/24/25 12:00 06:30 MCV 92.6 MCH 30.8 MCHC 33.2 RDW 13.4 Plt Count 176 D MPV 9.1 L Immature Gran % (Auto) Cancelled Neut % (Auto) Cancelled Lymph % (Auto) Cancelled [place] % (Auto) Cancelled Eos % (Auto) Cancelled Baso % (Auto) Cancelled Lymph # (Auto) Cancelled [place] # (Auto) Cancelled Eos # (Auto) Cancelled Baso # (Auto) Cancelled Abs Immat Gran (auto) Cancelled Absolute Neuts (auto) Cancelled Absolute Nucleated RBC 0.000 Nucleated RBC % (auto) 0.0 Neutrophils % (Manual) 88 H Band Neutrophils % 6 H Lymphocytes % (Manual) 3 L Atypical Lymphs % (Man) 1 Monocytes % (Manual) 2 Abs Neuts (Manual) 15.7 H Lymphocytes # (Manual) 0.5 L Atyp Lymphs # (Manual) 0.2 Monocytes # (Manual) 0.3 Toxic Vacuolation PRESENT Platelet Estimate NORMAL Large Platelets PRESENT Plt Morphology Comment NOTED RBC Morphology NOTED [place] Cells 2+ (3-5) Acanthocytes (Spur) 2+ (3-5) Anion Gap 14 Estim Creat Clear Calc 102.1 Estimated GFR > 60 Random Glucose 139 H Calcium 9.6 Troponin I High Sens 47.2 H D Microbiology Microbiology Results: Microbiology 05/23/25 01:23 Blood Culture - Preliminary Blood - Venous No growth after 24 hours. 05/23/25 01:23 Blood Culture - Preliminary Blood - Venous No growth after 24 hours. Assessment and Plan (1) Community acquired pneumonia: Status: Acute Plan 70 y/o man with a PMHx significant for multiple pneumonias presents with: Acute hypoxic respiratory failure secondary to left lung multifocal pneumonia and acute COPD exacerbation. : continue Telemetry. Pulse oximetry. Supplemental O2 to keep O2 sats> 90%. Empiric IV antibiotic therapy with Zosyn, IV steroids and bronchodilator therapy. nasal mrsa , sputum cultures and legionella antigen added Id eval pending Elevated troponins -possible realted to demand . echo done pending cardiology eval appreciated . Essential hypertension. Continue home meds. SLE. Continue hydrochloroquine. Code status: Full DVT prophylaxis: Lovenox ongoing need hospitalization for acute hypoxic respiratory failure, COPD exacerbation and pneumonia treatment with supplemental oxygen, IV steroids, IV steroids and IV antibiotics. Quality Stroke Does the patient have a stroke diagnosis?: No VTE Prior VTE?: No VTE Risk Level:: Medical - moderate - high VTE Device Contraindication: Treatment Not Indicated VTE Drug Contraindication: N/A - Med Ordered
--- NOTE | 2025-05-24 13:25 | PM.PNCARD ---
Subjective Subjective Date of Service: 05/24/25 Interval history: Seen and examined at bedside. Feeling better. Physical Exam Vital Signs: Last Vital Signs Temp 98.6 F 05/24/25 11:54 Pulse 71 05/24/25 11:54 Resp 18 05/24/25 11:54 BP 104/56 L 05/24/25 11:54 Pulse Ox 94 05/24/25 11:54 O2 Del Method Room Air 05/24/25 11:54 O2 Flow Rate 3 05/23/25 07:54 BMI result Body Mass Index 26.1 GENERAL APPEARANCE: in no acute distress, pleasant. NECK: no carotid bruit, no jugular venous distention. SKIN: no suspicious lesions, warm and dry. HEART: no murmurs, regular rate and rhythm. LUNGS: clear to auscultation bilaterally. ABDOMEN: soft, nontender. EXTREMITIES: no edema. PERIPHERAL PULSES: equal. NEUROLOGIC: No gross deficits, AAO X 3 Objective Labs and Meds 05/24/25 06:30 05/24/25 06:30 Lab results: Laboratory Results - last 24 hr 05/24/25 06:30 WBC 16.7 H RBC 3.77 L Hgb 11.6 L Hct 34.9 L MCV 92.6 MCH 30.8 MCHC 33.2 RDW 13.4 Plt Count 176 D MPV 9.1 L Immature Gran % (Auto) Cancelled Neut % (Auto) Cancelled Lymph % (Auto) Cancelled [place] % (Auto) Cancelled Eos % (Auto) Cancelled Baso % (Auto) Cancelled Lymph # (Auto) Cancelled [place] # (Auto) Cancelled Eos # (Auto) Cancelled Baso # (Auto) Cancelled Abs Immat Gran (auto) Cancelled Absolute Neuts (auto) Cancelled Absolute Nucleated RBC 0.000 Nucleated RBC % (auto) 0.0 Neutrophils % (Manual) 88 H Band Neutrophils % 6 H Lymphocytes % (Manual) 3 L Atypical Lymphs % (Man) 1 Monocytes % (Manual) 2 Abs Neuts (Manual) 15.7 H Lymphocytes # (Manual) 0.5 L Atyp Lymphs # (Manual) 0.2 Monocytes # (Manual) 0.3 Toxic Vacuolation PRESENT Platelet Estimate NORMAL Large Platelets PRESENT Plt Morphology Comment NOTED RBC Morphology NOTED [place] Cells 2+ (3-5) Acanthocytes (Spur) 2+ (3-5) Sodium 138 Potassium 3.6 Chloride 107 Carbon Dioxide 21 L Anion Gap 14 BUN 16 Creatinine 0.62 Estim Creat Clear Calc 102.1 Estimated GFR > 60 Random Glucose 139 H Calcium 9.6 Progress Note: A&P Assessment and plan (1) Elevated troponin: Status: Acute (2) Abnormal EKG: Status: Acute Plan 70 year gentleman presenting with cough and pneumonia. He is on antibiotics and improving. He underwent cardiac catheterization in January for abnormal EKG. He had depressions in precordial leads from V2 to V6 which were more exaggerated when he was tachycardic. He is presenting with pneumonia again and when his heart rate was fast he had diffuse ST depressions similar to his previous presentation. As his heart rate has improved his EKGs still has sagging ST depressions from V2 to V6. He previously was also hypomagnesemic. He has mildly elevated troponin levels. Again he has been reassured that EKG changes are not due to ischemia and are related to infection, tachycardia and exaggeration of baseline changes. His electrolytes should be monitored closely and treated. Thank you for allowing me to participate in the care of your patient. Please feel free to contact me if you have any questions. Time Spent With Patient Time: Total time managing care of this patient today ____ minutes. Progress Note: Quality Stroke Does the patient have a stroke diagnosis?: No Procedures Date of Service Date of Service: 05/24/25
[2025-05-24 13:40] LABS: MRSA Nasal PCR NEGATIVE (Negative); SA Nasal PCR NEGATIVE (Negative)
--- NOTE | 2025-05-24 14:23 | MHC.RECOVRN ---
Patient had a positive screen for unhealthy alcohol use on admission, subsequently, met with pt with the intention to discuss alcohol use, recovery supports, and concerns related to increased risk of alcohol related problems. On approach pt was sitting in a chair, watching TV, in no apparent distress. Pt denies withdrawal symptoms. Tw began to explain the reason for the interview to which pt interjected and stated, ?I?m 70 years old. If I want a few beers I?ll have a few beers?. I quit cigarettes all on my own, cold turkey. I can do the same with beer if I needed to . Pt was pleasant but denied that alcohol use is problematic or the need for support or resources.? Pt declines intervention, DENISSE, or appt for tx related to AUD at this time. TW available for further support or education as needed.
[2025-05-25] VITALS: BP 136/73; PULSE 82; RESP 18; TEMP 36.3; O2SAT 96
--- NOTE | 2025-05-25 00:31 | W.PM.IDCN ---
History of Present Illness Data of Consult Service Date: 05/24/25 Requesting physician: Nathaniel Campuzano Primary Care Provider: Ted Pearl MD [facility] Reason for consult: pneumonia,left lung He presents with acute shortness of breath for three hours. He hannon dry cougn as well. 'He has SLE and is on hydroxychloroquine. Review of Systems Review of Systems: Yes all other systems are reviewed and are negative PMFSH Past Medical History Medical History Emphysema lung Pneumonia involving left lung Personal history of nicotine dependence COPD (chronic obstructive pulmonary disease) Benign paroxysmal positional vertigo Tubular adenoma Lupus Pancreatic insufficiency Tubulovillous adenoma GERD (gastroesophageal reflux disease) HTN (hypertension) Family History Family History Father HTN (hypertension) Mother Cancer Sister Cancer Surgical History Surgical History Hx of tonsillectomy History of vasectomy History of colonoscopy History of left inguinal hernia repair History of esophagogastroduodenoscopy (EGD) Social History Social History Household Members: Spouse Housing: House Do you presently have visiting nurse or other home services: No Alcohol intake: current Alcohol intake frequency: 0-2 drinks per day Alcohol type: beer Patient Tobacco Use Status: Former Tobacco user Tobacco use type: Cigarette Years Smoked: 35 e-Cigarette/Vaping Use: Never Used Second Hand Smoke Exposure: No Advance Directives Date on File: 03/16/23 service: No Meds Allergies Allergy/AdvReac Type Severity Reaction Status Date / Time ibuprofen Allergy Mild tongue Verified 05/23/25 01:28 swelling Active Medications: Current Medications Acetaminophen (Acetaminophen 325 Mg Tablet) 975 mg PO Q6H PRN PRN Reason: Pain, Mild 1-3,fever,headache Albuterol Sulfate (Albuterol Sulfate (0.083%) 2.5 Mg/3 Ml Vial.Neb) 2.5 mg INHALE Q2H PRN PRN Reason: Shortness of Breath/Wheezing Albuterol/Ipratropium (Albuterol/Iprat 2.5/0.5mg 3 Ml Ampul.Neb) 3 ml INHALE RQ4H WHILE AWAKE [facility] Last Admin: 05/24/25 20:00 Dose: 3 ml Aspirin (Aspirin Enteric Coated 81 Mg Tablet.Dr) 81 mg PO DAILY [facility] Last Admin: 05/24/25 08:32 Dose: Not Given Atenolol (Atenolol 50 Mg Tablet) 50 mg PO DAILY [facility]; Protocol Last Admin: 05/24/25 07:35 Dose: 50 mg Atorvastatin Calcium (Atorvastatin Calcium 80 Mg Tablet) 80 mg PO BEDTIME [facility] Last Admin: 05/24/25 19:48 Dose: 80 mg Calcium Carbonate (Calcium Carbonate 750 Mg Tab.Chew) 750 mg PO Q4H PRN PRN Reason: Heartburn Enoxaparin Sodium (Enoxaparin Sodium 40 Mg/0.4 Ml Syringe) 40 mg SUBCUT Q24H [facility] Last Admin: 05/24/25 09:25 Dose: 40 mg Fluticasone/Vilanterol (Fluticasone/Vilanterol 200/25 Blst.W.Dev) 1 puff INHALE RDAILY [facility] Last Admin: 05/24/25 11:03 Dose: Not Given Guaifenesin (Guaifenesin 200 Mg/10 Ml 10 Ml Liquid) 10 ml PO Q6H PRN PRN Reason: Cough Guaifenesin/Codeine Phosphate (Guaifen/Codeine Sf 200/20/10ml 10 Ml Liquid) 5 ml PO Q6H PRN PRN Reason: Cough Hydroxychloroquine Sulfate (Hydroxychloroquine Sulfate 200 Mg Tablet) 200 mg PO BID [facility] Last Admin: 05/24/25 19:47 Dose: 200 mg Piperacillin Sod/Tazobactam (Sod 3.375 gm/ Sodium Chloride) 50 mls @ 100 mls/hr IV Q6H [facility] Last Infusion: 05/24/25 20:17 Dose: Infused Losartan Potassium (Losartan Potassium 50 Mg Tablet) 100 mg PO DAILY [facility]; Protocol Last Admin: 05/24/25 07:35 Dose: 100 mg Magnesium Hydroxide (Milk Of Magnesia 30 Ml Oral.Susp) 30 ml PO DAILY PRN PRN Reason: Constipation Melatonin (Melatonin 3 Mg Tablet) 6 mg PO BEDTIME PRN PRN Reason: Insomnia Last Admin: 05/24/25 19:51 Dose: 6 mg Multivitamins/Vitamin C (Multivitamin Tablet) 1 tab PO DAILY [facility] Last Admin: 05/24/25 07:36 Dose: 1 tab Omeprazole (Omeprazole 20 Mg Capsule.) 20 mg PO DAILY@1630 [facility] Last Admin: 05/24/25 16:34 Dose: 20 mg Prednisone (Prednisone 20 Mg Tablet) 40 mg PO DAILY [facility] Sodium Chloride (0.9 % Sodium Chloride Flush 3 Ml Syringe) 3 ml IVFLUSH QSHIFT [facility] Last Admin: 05/24/25 19:50 Dose: 3 ml Home Medications ?Medication ?Instructions ?Recorded ?Confirmed ?Last Taken ?Type hydroxychloroquine 200 mg tablet 200 mg PO BID 03/14/23 05/23/25 05/22/25 History multivitamin 1 tab PO DAILY 03/21/23 05/23/25 05/22/25 History acetaminophen 325 mg tablet 650 mg PO Q4H PRN Pain 12/11/24 05/23/25 Unknown History (Tylenol) esomeprazole magnesium 40 mg 40 mg PO DAILY@1630 12/11/24 05/23/25 05/22/25 History capsule,delayed release lactobacillus combination no.4 3 3,000 mmu cells PO DAILY 12/11/24 05/23/25 05/22/25 History billion cell capsule (Probiotic) albuterol sulfate 90 mcg/actuation 2 puff inhalation Q6H PRN dyspnea 01/02/25 05/23/25 Unknown History aerosol inhaler aspirin-caffeine 500 mg-32.5 mg 1 tab PO Q6H PRN Pain 01/02/25 05/23/25 Unknown History tablet (Gary Back and Body) atenolol 50 mg tablet 50 mg PO DAILY 03/05/25 05/23/25 05/22/25 History losartan 100 mg tablet 100 mg PO DAILY 04/30/25 05/23/25 05/22/25 History fluticasone furoate 200 1 ea inhalation DAILY 05/23/25 05/23/25 05/22/25 History mcg-vilanterol 25 mcg/dose inhalation powder (Breo Ellipta) Physical Exam Vital Signs: Vital Signs: Last Vital Signs Temp 98.4 F 05/24/25 19:31 Pulse 70 05/24/25 20:02 Resp 16 05/24/25 20:02 BP 135/71 05/24/25 19:31 Pulse Ox 92 05/24/25 19:31 O2 Del Method Room Air 05/24/25 19:31 O2 Flow Rate 3 05/23/25 07:54 BMI result Body Mass Index 26.1 Const: General: cooperative HEENT: Head: Yes normal to inspection Face and sinus: Yes normal facial exam Mouth: Normal oral and palatal mucosa present Teeth and gingiva: dentition normal Eyes: General: appearance normal, both eyes and all related structures Pupils: Equal, round and reactive pupils present Resp: Other: rhonchi right base Effort & Inspection: normal respiratory effort Cardio: Rate: regular rate Rhythm: regular rhythm GI: Palpation (GI): Soft to palpation and nontender : General: Yes no CVA tenderness Back/Spine/Pelvis: Back: no CVA tenderness Skin: General skin exam: no rashes or lesions noted Neuro: General: moves all extremities Cranial nerves: Yes Equal, round and reactive pupils present Extrem: General: Yes normal to inspection Psych: Appearance: grossly normal Results Labs 05/24/25 06:30 05/24/25 06:30 Labs: Short CBC 05/24/25 Range/Units 06:30 WBC 16.7 H (4.8-10.8) X10*3/uL Hgb 11.6 L (14.0-18.0) g/dl Hct 34.9 L (42.0-52.0) % Plt Count 176 D (160-400) X10*3/uL BMP 05/24/25 06:30 Sodium 138 Potassium 3.6 Chloride 107 Carbon Dioxide 21 L BUN 16 Creatinine 0.62 Calcium 9.6 Microbiology Microbiology Results: Microbiology 05/24/25 10:37 Sputum - Expectorated Gram Stain - Final 05/23/25 01:23 Blood - Venous Blood Culture - Preliminary No growth after 24 hours. 05/23/25 01:23 Blood - Venous Blood Culture - Preliminary No growth after 24 hours. Assessment and Plan (1) Lupus: Status: Acute (2) Community acquired pneumonia: Qualifiers: Laterality: right Lung location: lower lobe of lung Qualified Code(s): J18.9 - Pneumonia, unspecified organism Status: Acute Plan There is are possible resistant gram negative organisms as well as atypical organisms. Immunosuppression due to SLE plays a role but PJP is unlikely as hydroxychoroquine is protective against it. Would check IgA and IgG levels if not done Continue Zosyn 3-5 d or until better and add back azithromycin or Doxycycline RVP if not done
[2025-05-25 04:00] VITALS: BP 126/70; PULSE 76; RESP 18; TEMP 36.6; O2SAT 94
[2025-05-25 07:10] VITALS: BP 143/79; PULSE 64; RESP 18; TEMP 36.7; O2SAT 95
[2025-05-25] MEDS: Aspirin Enteric Coated 81 MG TABLET.DR PO (08:06)
--- NOTE | 2025-05-25 08:42 | PM.DS ---
DS: Providers Provider Date of Service: 05/25/25 Date of admission: 05/23/25 04:06 Date of discharge: 05/25/25 Primary care physician: Ted Pearl MD Consults: 05/23/25 09:27 Consult to Cardiology Routine Consulting Provider: [facility] Reason for consultation: elevated trops 05/24/25 05:56 Addiction Medicine Provider Routine Consulting Provider: Addiction Covering Reason for consultation: ETOH daily 3-6 beers Has provider been notified: Yes 05/24/25 08:18 Consult to Infectious Diseases Routine Consulting Provider: [facility] Reason for consultation: pneumonia Has provider been notified: No DS: Diagnosis Discharge Diagnosis (1) Community acquired pneumonia: Status: Acute DS: Summary Hospital Course Hospital Course: HPI per h&P: 70 years old man with past medical history significant for multiple pneumonias, COPD -no home oxygen, SLE on hydrochloroquine and essential hypertension presents to the emergency department complaining of shortness on breath that started last night associated with wheezing, chest tightness and dry cough. He does complain of chest congestion and suggestive fever. He did not report any gastrointestinal or genitourinary symptoms. Denied leg swelling. He is a former tobacco smoker -smoked for 30 years and quit about 10 years ago. Denied illicit drug use or alcohol abuse. He was found to have oxygen saturation in the 60s on room air by EMS. In the ED, he was found to have oxygen saturation 72% and was placed on BiPAP for about 2 hours. He was also found to have sinus tachycardia and tachypnea. Temperature is a 100.2 degrees. He is currently requiring 4 L/min supplemental oxygen via nasal cannula. Blood cultures are no leukocytosis. Hemoglobin and platelets are normal. VBG showed no respiratory acidosis. There are no electrolyte imbalances. BUN is 18 and creatinine 1.01. Glucose 144. Pro BNP is 372, troponin 7 point 2 and albumin 4.3. LFTs are essentially normal except for slight elevation of total bilirubin, 1.3. Chest CT scan with IV contrast showed multifocal consolidations, predominantly involving the left lung concerning for multifocal infectious/pneumonia. ECG showed sinus tachycardia with ST depressions in the anterolateral leads, these changes are old. He underwent a cardiac catheterization in January of this year and was found with no significant coronary artery disease. ED tx: Solu-Medrol 125 mg IV, azithromycin 500 mg IV NS 2.3 L bolus, Zosyn 3.375 IV, albuterol 7.5 mg/ipratropium 3 mL, magnesium 2 g IV, ceftriaxone 1 g IV Hospital course: Patient came to the hospital because of shortness of breaths, on to have acute hypoxemic respiratory failure secondary to multifocal pneumonia left side on chest imaging, blood cultures sent, started on IV antibiotics: Patient seems to be improved significantly with the above management and oxygen, now tapered off oxygen, ambulating fine without oxygen. Sats are above 90s. RVP -negative , Sputum culture and Legionella antigen are pending-but suspicion is low for Legionella. So will plan discharge on p.o. doxycycline and Augmentin. Mild leukocytosis likely related to steroids. Blood culture negative@48hrs Please consider check IgA and IgG levels outpatient. Elevated troponin thought to be related to demand, also EKG reviewed with the Cardiology: EKG changes are not due to ischemia and are related to infection, tachycardia and exaggeration of baseline changes. Further workup outpatient as per Cardiology, cardiology may arrange their own appointment. plan: Patient wants to follow Sputum culture and Legionella antigen are pending-outpatient with Pulmonary Patient will be going home with p.o. Augmentin and doxycycline as prescribed above for 7 days. Repeat chest imaging in 4 weeks to see resolution of pneumonia. Above management discussed with the patient detail length he understand and in agreement with the above plan, time spent 50 minute, all questions answered. Time Attestation Total time managing care of this patient today: 45 mintues. Discharge Coordination Time (in mins): 45 Quality: Safe Use of Opioids Does Pt have an Active Cancer Diagnosis on the Problem List?: No Quality: Stroke Does the patient have a stroke diagnosis?: No Physical Exam Exam: Exam: Appearance: Alert.? Oriented X3.? cvs: rrr, [id number] , no murmur res: air entry diminshed , has diminshed breath sounds left>right. abd: no rebound or guarding ,nt, bs present. ext pulses present , no cyanosis . neuro: axo3 , nonfocal. Vital Signs: Vital Signs: Last Vital Signs Temp 98.0 F 05/25/25 07:10 Pulse 64 05/25/25 07:10 Resp 18 05/25/25 07:10 BP 143/79 H 05/25/25 07:10 Pulse Ox 95 05/25/25 07:10 O2 Del Method Room Air 05/25/25 07:10 O2 Flow Rate 3 05/23/25 07:54 BMI result Body Mass Index 26.1 DS: Data Data Completed and Pending Labs on day of discharge: Laboratory Results - last 24 hr 05/24/25 10:37 Nasal Screen MRSA (PCR) NEGATIVE Nasal S. aureus Screen NEGATIVE Nasal MRSA/S.aureus Interp SEE NOTE Preliminary micro results at discharge 05/23/25 01:23 Blood Culture - Preliminary Blood - Venous No growth after 48 hours. 05/23/25 01:23 Blood Culture - Preliminary Blood - Venous No growth after [address] scan - chest: My impression: Multifocal consolidations, predominantly involving the left lung, concerning formultifocal infection/pneumonia. Recommend 8 week follow-up chest radiograph to ensure resolution. Discharge Plan Discharge Anticipated Discharge Date/Time: 05/25/25 08:29 Patient Disposition: Home, Self-Care Discharge Diagnosis: pneumonia Referrals: Ted Pearl MD [Primary Care Provider, Internal Medicine] - 1 Week Discharge Medications: New doxycycline monohydrate 100 mg Capsule 100 mg PO Q12H Qty: 14 0RF amoxicillin-pot clavulanate 875-125 mg Tablet 1 tab PO Q12H Qty: 14 0RF magnesium oxide 84.5 mg mag (140 mg) capsule 84.5 mg PO BID Qty: 20 0RF Continued (DME) maeve [facility] See Rx Instructions .MEDSUPPLY Qty: 1 0RF Rx Instructions: Harshal mcfarlane albuterol sulfate 90 mcg/actuation HFA aerosol inhaler 2 puff inhalation Q6H PRN (Reason: dyspnea) Gary Back and Body 500-32.5 mg Tablet 1 tab PO Q6H PRN (Reason: Pain) atorvastatin 80 mg Tablet 80 mg PO BEDTIME Qty: 30 0RF fluticasone furoate-vilanterol [Breo Ellipta] 200-25 mcg/dose blister with device 1 ea inhalation DAILY hydroxychloroquine 200 mg tablet 200 mg PO BID esomeprazole magnesium 40 mg capsule,delayed release(DR/EC) 40 mg PO DAILY@1630 acetaminophen [Tylenol] 325 mg Tablet 650 mg PO Q4H PRN (Reason: Pain) Probiotic 3 billion cell Capsule 3,000 mmu cells PO DAILY Rx Instructions: administer with a meal multivitamin Tablet 1 tab PO DAILY atenolol 50 mg tablet 50 mg PO DAILY losartan 100 mg tablet 100 mg PO DAILY Discharge Orders: Discharge Order (Routine); Ordered 05/25/25 Ordered By: Nathaniel Campuzano Diet: Advance to usual diet Activity on Discharge: As tolerated Stand Alone Forms: Patient Portal Discharge page Print Language: Lithuanian Other Ambulatory Orders: Basic Metabolic Panel (Routine) Timeframe: 1 Week Facility: [facility] - Location: Laboratory Ordered By: Nathaniel Campuzano Magnesium (Routine) Timeframe: 1 Week Facility: [facility] - Location: Laboratory Ordered By: Nathaniel Campuzano Care Plan Goals: as below. Health Concerns: Hypomagnesemia repleted and resolved. Patient will be going home with p.o. Augmentin and doxycycline as prescribed above for 7 days. Repeat chest imaging in 4 weeks to see resolution of pneumonia. Plan of Treatment: As above. Assessment: As above. Patient Instructions: Pneumonia (DC) Discharge Date/Time: 05/25/25 12:10
[2025-05-25 11:07] VITALS: BP 142/77; PULSE 62; RESP 18; TEMP 36.7; O2SAT 92
--- NOTE | 2025-05-25 12:03 | MHC.CM.PN ---
PT CLEARED TO DC HOME TODAY WITH NO SERVICES VIA SELF-ARRANGED TRANSPORT
[2025-05-25 14:13] LABS: Chlamydia pneumoniae PCR Not Detected (Not Detect.); Coronavirus 229E PCR Not Detected (Not Detect.); Coronavirus HKU1 PCR Not Detected (Not Detect.); Coronavirus NL63 PCR Not Detected (Not Detect.); Coronavirus OC43 PCR Not Detected (Not Detect.); RSV PCR Not Detected (Not Detect.); Rhino/Enterovirus PCR Not Detected (Not Detect.)
[2025-05-25 14:17] LABS: Influenza A H1 PCR Not Detected (Not Detect.); Influenza A H1-2009 PCR Not Detected (Not Detect.); Influenza A H3 PCR Not Detected (Not Detect.); SARS-CoV-2 PCR Not Detected (Not Detect.)
== END 2025-05-25 12:10 | disposition home or self-care (01) | DRG 193 ==
LOC: HO.ED 02:54 → HO.EDOVER 04:23 → HO.IMC 05-24 00:05
PROVIDERS: Admitting Provider Internal Medicine; Emergency Provider Emergency Medicine; PCP Internal Medicine; Visit Provider Internal Medicine
DX: J18.9 Pneumonia, unspecified organism (principal); J96.01 Acute respiratory failure with hypoxia; J43.9 Emphysema, unspecified; I10 Essential (primary) hypertension; M32.9 Systemic lupus erythematosus, unspecified; Z87.01 Personal history of pneumonia (recurrent); Z20.822 Contact with and (suspected) exposure to COVID-19; Z79.899 Other long term (current) drug therapy
CPT/HCPCS: 36415; 71045; 71250; 80048; 80076; 82803; 83605; 83880; 84484; 85007; 85025; 85027; 87040; 87070; 87205; 87449; 87633; 87637; 87640; 87641; 93005; 93306; 94640; 99285; J0456; J0696; J1650; J2543; J2919; J3475; Q9957

== ENCOUNTER → 2025-05-23 01:17 | Outpatient (BNV) | payer MEDICARE, SELFPAY | PROVIDERS: Emergency Provider Emergency Medicine; PCP Internal Medicine; Visit Provider Radiology Diagnostic Radiology | DX: R91.8 Other nonspecific abnormal finding of lung field (principal) | CPT/HCPCS: 71045; 71250 ==

== ENCOUNTER 2025-05-23 04:06 | Outpatient (BNV) | payer MEDICARE, SELFPAY | END 2025-05-24 11:16 | PROVIDERS: Admitting Provider Internal Medicine; Emergency Provider Emergency Medicine; PCP Internal Medicine; Visit Provider Internal Medicine Cardiovascular Disease | DX: R94.31 Abnormal electrocardiogram [ECG] [EKG] (principal) | CPT/HCPCS: 93010 ==

== ENCOUNTER → 2025-05-23 04:06 | Outpatient (BNV) | payer MEDICARE, SELFPAY | PROVIDERS: Admitting Provider Internal Medicine; Emergency Provider Emergency Medicine; PCP Internal Medicine; Visit Provider Internal Medicine Cardiovascular Disease | DX: R79.89 Other specified abnormal findings of blood chemistry (principal) | CPT/HCPCS: 93010; 99222 ==

== ENCOUNTER → 2025-05-23 04:06 | Outpatient (BNV) | payer MEDICARE, SELFPAY | PROVIDERS: Admitting Provider Internal Medicine; Emergency Provider Emergency Medicine; PCP Internal Medicine; Visit Provider Internal Medicine | DX: M32.9 Systemic lupus erythematosus, unspecified (principal); J18.9 Pneumonia, unspecified organism | CPT/HCPCS: 99222 ==

== ENCOUNTER → 2025-05-23 04:06 | Outpatient (BNV) | payer MEDICARE, SELFPAY | PROVIDERS: Admitting Provider Internal Medicine; Emergency Provider Emergency Medicine; PCP Internal Medicine; Visit Provider Internal Medicine | DX: J96.01 Acute respiratory failure with hypoxia (principal); J44.1 Chronic obstructive pulmonary disease with (acute) exacerbation; J18.8 Other pneumonia, unspecified organism | CPT/HCPCS: 99223; 99232; 99239; 99499 ==

== ENCOUNTER 2025-05-26 12:47 | Outpatient (REF) | payer MEDICARE, SELFPAY ==
--- NOTE | ~2025-05-26 | FL_ITS ---
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 TECHNIQUE: AP and lateral upright views of the chest on inspiration and expiration and stress test under fluoroscopy was performed. FINDINGS: The left hemidiaphragm on AP and lateral projection lies at 8th interspace with no movement seen on the deep inspiration, expiration of or sniffing. The right diaphragm on AP and lateral projection lies ninth interspace and has normal upper and downward motion on inspiration and expiration by 1-2 interspace. This is better visualized on lateral projection. FLUOROSCOPY TIME: 1 minute 36 seconds DOSE AREA PRODUCT: 66.7 uGy-m2 (microgray-meter squared) FL/FL fluoroscopy <1hr IMPRESSION: Normal movement of the right diaphragm on inspiration, expiration and sniffing. Immobile left diaphragm on inspiration, expiration and sniffing. Electronically signed by: Ryne Crow MD 05/26/2025 02:41 PM EDT
--- OUTSIDE RECORDS SUMMARY | 2025-05-26 15:29 | XMS_ITS | Encounter Summary ---
Author Organization [facility] Address [address] [place] [address] Phone Care Team Providers Care Gimp Buttonhole Machine Operator Name Role Phone Ted Pearl MD Primary Care Provider [phone] Sterling Ware MD Unavailable [phone] Tyrel Amaya MD Unavailable [phone] Andrzej Garland MD Unavailable [phone] Win Reyes PA-C Primary Care Provider [phone] Encounter Details Date Type Department Care Team (Latest Contact Info) Description 01/05/2024 Ancillary Orders [facility] Rheumatology [address] [place] [phone] Edie Pina MD [address], [address] [place] [address] [email or web address] Lupus erythematosus tumidus (Primary Dx); Long-term [...] Care Team (Late st Contact Info) Description 05/29/2025 9:40 AM EDT Office Visit [facility] [address] [place] [address] Win Reyes PA-C [address] [place] [address] 06/11/2025 7:20 AM EST Office Visit [facility] Internal [facility] [address] [place] [address] Win Reyes PA-C [address] [place], [place] [id number] [email or web address] 06/12/2025 9:00 AM EST Office Visit [facility] Rheumatology [address] [place] [address] Edie Pina MD [address], [address] [place] [address] [email or web address] documented as of this encounter Results [...] with subchondral sclerosis, bony proliferative change, and ntum-ir-pocd contact is severe in the medial, moderate [...] narrowing with subchondral sclerosis, bonyproliferative change, and veki-oc-iemw contact is severe in the medial,moderate to [...] documented as of this encounter Care Teams Gimp Buttonhole Machine Operator Relationship Specialty Start Date End Date Ted Pearl MD [address] [place] [address] [email or web address] PCP - General Internal Medicine 12/18/19 04/21/25 Win Reyes PA-C [address] [place] [address] [email or web address] PCP - General Physician Crisis Nurse 04/22/25 Sterling Ware MD [address] [place] [address] [email or web address] Dermatology 12/20/19 Tyrel Amaya MD [address] [place] [address] [place] [id number] Pulmonary Disease 02/17/20 Andrzej Garland MD [address] [place] [address] [place] [id number] Ophthalmology 04/07/20 documented as of this encounter Additional Source Comments The information contained in this document represents components of the legal health record. It is not the complete legal health record.[facility]
--- OUTSIDE RECORDS SUMMARY | 2025-05-26 15:30 | XMS_ITS | Encounter Summary ---
Author Organization [facility] Address [address] [place] [address] Phone Care Team Providers Care Manager Operations And Procurement Name Role Phone Ted Pearl MD Primary Care Provider [phone] Ted Pearl MD Unavailable [phone] Etienne Lindsey MD Unavailable Ted Pearl MD Unavailable [phone] Ted Pearl MD Primary Care Provider [phone] Sterling Ware MD Unavailable [phone] Tyrel Amaya MD Unavailable [phone] Andrzej Garland MD Unavailable [phone] Win Reyes PA-C Primary Care Provider [phone] Encounter Details Date Type Department Care Team (Latest Contact Info) Description 01/22/2018 Transcribe Orders [facility] Laboratory [address] [place] [address] Anais Goncalves, CHIEF YEOMAN [address] [place] [address] [email or web address] Fever, unspecified fever cause (Primary Dx) [...] Description 05/29/2025 9:40 AM EDT Office Visit [facility] [address] [place] [address] Win Reyes PA-C [address] [place] [address] 06/11/2025 7:20 AM EST Office Visit [facility] [address] [place] [address] Win Reyes PA-C [address] [place] [address] [email or web address] 06/12/2025 9:00 AM EST Office Visit [facility] Rheumatology [address] [place] [phone] Edie Pina MD [address] [place] [address], [address] [place] [address] [email or web address] documented as of this encounter Visit Diagnoses Diagnosis Fever, unspecified fever cause- Primary documented in this encounter Additional Health Concerns Infection Onset Date Last Indicated Resolved Time CoV-Risk 12/23/2019 12/23/2019 01/06/2020 1:24 AM EDT COVID-19 09/19/2023 09/19/2023 10/10/2023 1:21 AM EST CoV-Risk 11/07/2024 11/07/2024 11/18/2024 1:21 AM EDT documented as of this encounter Care Teams Manager Operations And Procurement Relationship Specialty Start Date End Date Ted Pearl MD [address] [place] [address] [email or web address] PCP - General Internal Medicine 09/05/17 12/17/19 Ted Pearl MD [address] [place] [address] [email or web address] PCP - General Internal Medicine 12/18/19 04/21/25 Win Reyes PA-C [address] [place] [address] [email or web address] PCP - General Physician Panel Edge Sealer 04/22/25 Ted Pearl MD [address] [place] [address] [email or web address] Insurance Assigned Provider 12/08/18 05/18/19 Etienne Lindsey MD [address] [place] [address] [email or web address] Insurance Assigned Provider 05/18/19 06/08/19 Ted Pearl MD [address] [place] [address] [email or web address] Insurance Assigned Provider 06/08/19 10/11/19 Sterling Ware MD [address] [place] [address] [email or web address] Dermatology 12/20/19 Tyrel Amaya MD [address] [place] [address] [place] [address] Pulmonary Disease 02/17/20 Andrzej Garland MD [address] [place] [address] Dr Larsen, [place] [address] Ophthalmology 04/07/20 documented as of this encounter Additional Source Comments The information contained in this document represents components of the legal health record. It is not the complete legal health record.[facility]
--- OUTSIDE RECORDS SUMMARY | 2025-05-26 15:30 | XMS_ITS | Encounter Summary ---
Author Organization [facility] Address [address] [place] [address] Phone Care Team Providers Care Sustainability Project Manager Name Role Phone Ted Pearl MD Primary Care Provider [phone] Sterling Ware MD Unavailable [phone] Tyrel Amaya MD Unavailable [phone] Andrzej Garland MD Unavailable [phone] Win Reyes PA-C Primary Care Provider [phone] Encounter Details Date Type Department Care Team (Late st Contact Info) Description 01/08/2021 Procedure Pass [facility] [address] [place], [place] [phone] Social History Tobacco Use Types Packs/Day Years [...] Description 05/29/2025 9:40 AM EDT Office Visit [facility] Internal Medicine [address] [place], [place] [phone] Win Reyes PA-C [address] [place], [place] [phone] 06/11/2025 7:20 AM EST Office Visit [facility] Internal Medicine [address] [place], [place] [phone] Win Reyes PA-C [address] [place], [place] 06/12/2025 9:00 AM EST Office Visit [facility] Rheumatology [address] [place] [address] Edie Pina MD 22 [facility], [address] [place], [place] [phone] [email or web address] documented as of this encounter Visit Diagnoses Not on filedocumented in this encounter Additional Health Concerns Infection Onset Date Last Indicated Resolved Time COVID-19 09/19/2023 09/19/2023 10/10/2023 1:21 AM EST CoV-Risk 11/07/2024 11/07/2024 11/18/2024 1:21 AM EDT Assessment Noted Time PHQ-2 Depression Total Score: 0 12/20/19 9:41 AM EDT documented as of this encounter Care Teams Sustainability Project Manager Relationship Specialty Start Date End Date Ted Pearl MD [address] [place] [address] PCP - General Internal Medicine 12/18/19 04/21/25 Win Reyes PA-C [address] [place] [address] PCP - General Physician Phosphatic Fertilizer Supervisor 04/22/25 Sterling Ware MD [address] [place] [address] [email or web address] Dermatology 12/20/19 Tyrel Amaya MD [address] [place] [address] [place] [address] Pulmonary Disease 02/17/20 Andrzej Garland MD [address] [place] [address] [place] [address] Ophthalmology 04/07/20 documented as of this encounter Additional Source Comments The information contained in this document represents components of the legal health record. It is not the complete legal health record.[facility]
--- OUTSIDE RECORDS SUMMARY | 2025-05-26 15:31 | XMS_ITS | Encounter Summary ---
Author Organization [facility] Address [address] [place] [address] Phone Care Team Providers Care Plant Pathologist Name Role Phone Sterling Ware MD Unavailable [phone] Tyrel Amaya MD Unavailable [phone] Andrzej Garland MD Unavailable [phone] Win Reyes PA-C Primary Care Provider [phone] Reason for Referral * MRI/CAT Scan - Closed Specialty Diagnoses / Procedures Referred By Contac t Referred To Contact Radiology Procedures Outside CT Chest Report Only [facility] Internal Medicine [address] [place] [address] Phone: tel: fax: Referral ID Status Reason Start Date Expiration Date Visits Re quested Visits Authorized [id number] Closed 05/23/2025 1 1 Encounter Details Date Type Department Care Team (Late st Contact Info) Description 05/23/2025 Orders Only [facility] Internal Medicine [address] [place] [address] Chanell Taylor MD [address] [place] [address] Social History Tobacco Use Types Packs/Day Years [...] Description 05/29/2025 9:40 AM EDT Office Visit [facility] Internal Medicine [address] [place] [address] Win Reyes PA-C [address] [place] [address] 06/11/2025 7:20 AM EST Office Visit [facility] Internal Medicine [address] [place] [address] Win Reyes PA-C [address] [place] [address] 06/12/2025 9:00 AM EST Office Visit [facility] Rheumatology [address] [place] [address] Edie Pina MD 22 [facility], [address] [place] [address] [email or web address] documented as of this encounter Procedures Procedure Name Priority Date/Time Associated Diagnosis Comments OUTSIDE XR CHEST REPORT ONLY Routine 05/23/2025 10:[address] CHEST REPORT ONLY Routine 05/23/2025 10:54 AM EDT documented in this encounter Results * Outside XR??Chest Report Only (05/23/2025 10:59 AM EDT) us Historical Provider MD TELLES XR CHEST Final Res ult * Outside CT??Chest Report Only (05/23/2025 10:54 AM EDT) us Historical Provider MD TELLES CT CHEST Final Res ult documented in this encounter Visit Diagnoses Not on filedocumented in this encounter Additional Health Concerns Assessment Noted Time PHQ-2 Depression Total Score: 0 04/15/20 25 5:22 PM EDT documented as of this encounter Care Teams Plant Pathologist Relationship Specialty Start Date End Date Win Reyes PA-C [address] [place] [address] PCP - General Physician Excelsior Cutter 04/22/25 Sterling Ware MD Dermatology 12/20/19 Tyrel Amaya MD [address] [place] [address] [place] [address] Pulmonary Disease 02/17/20 Andrzej Garland MD [address] [place] [address] [place] [address] Ophthalmology 04/07/20 documented as of this encounter Additional Source Comments The information contained in this document represents components of the legal health record. It is not the complete legal health record.[facility]
--- OUTSIDE RECORDS SUMMARY | 2025-05-26 15:31 | XMS_ITS | Encounter Summary ---
Author Organization [facility] Address [address] [place] [address] Phone Care Team Providers Care Tufting Creeler Name Role Phone Ted Pearl MD Primary Care Provider [phone] Sterling Ware MD Unavailable [phone] Tyrel Amaya MD Unavailable [phone] Andrzej Garland MD Unavailable [phone] Win Reyes PA-C Primary Care Provider [phone] Encounter Details Date Type Department Care Team (Latest Contact Info) Description 01/30/2025 Ancillary Orders [facility] Medical [facility] Internal Medicine [address] [place], [place] [phone] Win Reyes PA-C [address] [place], [place] [phone] [email or web address] Fever, unspecified (Primary Dx) Social History Tobacco [...] Description 05/29/2025 9:40 AM EDT Office Visit [facility] Internal Medicine [address] [place] [address] Win Reyes PA-C [address] [place], [place] [email or web address] 06/11/2025 7:20 AM EST Office Visit [facility] Internal Medicine [address] [place], [place] [phone] Win Reyes PA-C [address] [place], [place] 06/12/2025 9:00 AM EST Office Visit [facility] Rheumatology [address] [place] [address] Edie Pina MD [address] [place] [address], [address] [place] [address] [email or web address] documented as of this encounter Visit Diagnoses Diagnosis Fever, unspecified- Primary documented in this encounter Additional Health Concerns Assessment Noted Time PHQ-2 Depression Total Score: 0 12/14/19 25 2:46 PM EDT documented as of this encounter Care Teams Tufting Creeler Relationship Specialty Start Date End Date Ted Pearl MD [address] [place] [address] [email or web address] PCP - General Internal Medicine 12/18/19 04/21/25 Win Reyes PA-C [address] [place] [address] PCP - General Physician Spooler Operator Automatic 04/22/25 Sterling Ware MD [address] [place] [address] [email or web address] Dermatology 12/20/19 Tyrel Amaya MD [address] [place] [address] [place] [address] Pulmonary Disease 02/17/20 Andrzej Garland MD [address] [place] [address] [place] [address] Ophthalmology 04/07/20 documented as of this encounter Additional Source Comments The information contained in this document represents components of the legal health record. It is not the complete legal health record.[facility]
--- OUTSIDE RECORDS SUMMARY | 2025-05-26 15:31 | XMS_ITS | Encounter Summary ---
Author Organization [facility] Address [address] [place] [address] Phone Care Team Providers Care Coal Pipeline Operator Name Role Phone Sterling Ware MD Unavailable [phone] Tyrel Amaya MD Unavailable Andrzej Garland MD Unavailable [phone] Win Reyes PA-C Primary Care Provider [phone] Encounter Details Date Type Department Care Team (Late st Contact Info) Description 05/26/2025 Documentation [facility] Internal Medicine [address] [place], [place] [phone] Win Reyes PA-C [address] [place] [address] [email or web address] Social History Tobacco Use Types Packs/Day Years [...] on file documented as of this encounter Progress Notes * Karli Newton CMA - 05/26/2025 2:19 PM EDT HM updated documented in this encounter Plan of Treatment Upcoming Encounters Date Type Department Care Team (Late st Contact Info) Description 05/29/2025 9:40 AM EDT Office Visit [facility] Internal Medicine [address] [place] [address] Win Reyes PA-C [address] [place], [place] [phone] [email or web address] 06/11/2025 7:20 AM EST Office Visit [facility] Internal Medicine [address] [place] [address] Win Reyes PA-C [address] [place], [place] [phone] 06/12/2025 9:00 AM EST Office Visit [facility] Rheumatology [address] [place] [address] Edie Pina MD 22 [facility], [address] [place], [place] [phone] [email or web address] documented as of this encounter Procedures Procedure Name Priority Date/Time Associated Diagnosis Comments OUTSIDE POTASSIUM LEVEL Routine 05/23/2025 OUTSIDE SERUM CREATININE LEVEL Routine 05/23/2025 OUTSIDE ALT LEVEL Routine 05/23/2025 documented in this encounter Results * Outside Potassium Level (05/23/2025) [facility] Potassium level - External 3.6 3.4 - 5.0 mmol/L us Historical Provider LAB BLOOD ORDERABLES Joi l Result * Outside ALT Level (05/23/2025) ALT - External 27 5 - 30 U/L us Historical Provider LAB BLOOD ORDERABLES Joi l Result * Outside Serum Creatinine Level (05/23/2025) Creatinine, serum - External 1.01 0.8 - 1.3 mg/dL us Historical Provider LAB BLOOD ORDERABLES Joi l Result documented in this encounter Visit Diagnoses Not on filedocumented in this encounter Additional Health Concerns Assessment Noted Time PHQ-2 Depression Total Score: 0 04/15/20 25 5:22 PM EDT documented as of this encounter Care Teams Coal Pipeline Operator Relationship Specialty Start Date End Date Win Reyes PA-C [address] [place] [address] [email or web address] PCP - General Physician Neurosurgery Research Director 04/22/25 Sterling Ware MD Dermatology 12/20/19 Tyrel Amaya MD [address] [place] [address] [place] [address] Pulmonary Disease 02/17/20 Andrzej Garland MD [address] [place] [address] [place] [address] Ophthalmology 04/07/20 documented as of this encounter Additional Source Comments The information contained in this document represents components of the legal health record. It is not the complete legal health record.[facility]
--- OUTSIDE RECORDS SUMMARY | 2025-05-26 15:32 | XMS_ITS | Encounter Summary ---
Author Organization [facility] Address [address] [place] [address] Phone Care Team Providers Care Special Education Teachers Name Role Phone Ted Pearl MD Primary Care Provider [phone] Sterling Ware MD Unavailable [phone] Tyrel Amaya MD Unavailable [phone] Andrzej Garland MD Unavailable [phone] Win Reyes PA-C Primary Care Provider [phone] Encounter Details Date Type Department Care Team (Late st Contact Info) Description 07/08/2022 Procedure Pass [facility], Ct Scan - [address] [address] Social History Tobacco Use Types Packs/Day Years [...] high school, GED, job training, learning the Portuguese language, technical skills, or developing parenting skills)? [...] Description 05/29/2025 9:40 AM EDT Office Visit [facility] Internal Medicine [address] [place] [address] Win Reyes PA-C [address] [place] [address] [email or web address] 06/11/2025 7:20 AM EST Office Visit [facility] Internal Medicine [address] [place] [address] Win Reyes PA-C [address] [place] [address] 06/12/2025 9:00 AM EST Office Visit [facility] Rheumatology [address] [place] [address] Edie Pina MD [address] [facility], [address] [place] [address] [email or web address] documented as of this encounter Visit Diagnoses Not on filedocumented in this encounter Additional Health Concerns Infection Onset Date Last Indicated Resolved Time COVID-19 09/19/2023 09/19/2023 10/10/2023 1:21 AM EST CoV-Risk 11/07/2024 11/07/2024 11/18/2024 1:21 AM EDT Assessment Noted Time PHQ-2 Depression Total Score: 0 07/08/20 8:55 AM EST documented as of this encounter Care Teams Special Education Teachers Relationship Specialty Start Date End Date Ted Pearl MD [address] [place] [address] [email or web address] PCP - General Internal Medicine 12/18/19 04/21/25 Win Reyes PA-C [address] [place] [address] [email or web address] PCP - General Physician Front End Software Developer 04/22/25 Sterling Ware MD [address] [place] [address] [email or web address] Dermatology 12/20/19 Tyrel Amaya MD [address] [place] [address] [place] [address] Pulmonary Disease 02/17/20 Andrzej Garland MD [address] [place] [address] [place] [address] Ophthalmology 04/07/20 documented as of this encounter Additional Source Comments The information contained in this document represents components of the legal health record. It is not the complete legal health record.[facility]
--- OUTSIDE RECORDS SUMMARY | 2025-05-26 15:32 | XMS_ITS | Clinical Summary ---
Author Organization [facility] Address [address] [place] [id number] Phone Care Team Providers Care Primer Press Operator Name Role Phone Sterling Ware MD Unavailable [phone] Tyrel Amaya MD Unavailable Andrzej Garland MD Unavailable [phone] Win Reyes PA-C Primary Care Provider [phone] Allergies Active Allergy Reactions Criticality Noted Date [...] AM EDT): Continue Creon as prescribed by unit manager rn. Follow-up as scheduled. Assessment & Plan (01/05/2024 11:05 AM EDT): Continue Creon as prescribed by unit manager rn. Get colonoscopy as scheduled on 10/11/2022 to make sure that last year tubulovillous polyp has not returned. Assessment & Plan (12/14/2022 9:04 AM EDT): Continue Creon as prescribed by unit manager rn. Get colonoscopy as scheduled on 10/11/2022 to make sure that last year tubulovillous polyp has not returned. Assessment & Plan (08/13/2022 5:10 PM EST): Continue Creon as prescribed by unit manager rn. Get colonoscopy as scheduled on 10/11/2022 to [...] starting Plaquenil again and follow instructions flow production control analyst. Daily sun protection all year round while on Plaquenil. Assessment & Plan (09/06/2024 9:03 AM EST): Take carefully as prescribed. Arrange for ophthalmologic checkup within 12 months since starting Plaquenil again and follow instructions flow production control analyst. Daily sun protection all year round while on Plaquenil. Assessment & Plan (05/06/2024 10:49 AM EDT): Take carefully as prescribed. Arrange for ophthalmologic checkup within 12 months since starting Plaquenil again and follow instructions flow production control analyst. Daily sun protection all year round while on Plaquenil. Assessment & Plan (01/05/2024 11:05 AM EDT): Take carefully as prescribed. Arrange for ophthalmologic checkup within 12 months since starting Plaquenil again and follow instructions flow production control analyst. Daily sun protection all year round while on Plaquenil. Assessment & Plan (12/14/2022 9:05 AM EDT): Take carefully as prescribed. Arrange for ophthalmologic checkup within 12 months since starting Plaquenil again and follow instructions flow production control analyst. Daily sun protection all year round while on Plaquenil. Assessment & Plan (08/11/2022 8:11 AM EST): Take carefully as prescribed. Arrange for ophthalmologic checkup within 12 months since starting Plaquenil again and follow instructions flow production control analyst. Daily sun protection all year round while on Plaquenil. Assessment & Plan (04/13/2022 10:02 AM EDT): Take carefully as prescribed. Arrange for ophthalmologic checkup within 12 months since starting Plaquenil again and follow instructions flow production control analyst. Daily sun protection all year round while on Plaquenil. Assessment & Plan (12/19/2021 5:12 PM EDT): Take carefully as prescribed. Arrange for ophthalmologic checkup within 12 months since starting Plaquenil again and follow instructions flow production control analyst. Daily sun protection all year round while [...] may benefit from combined dermatology/rheumatology consult at [facility] with Dr. Luly Fisher Assessment & [...] may benefit from combined dermatology/rheumatology consult at [facility] with Dr. Luly Fisher Assessment & [...] may benefit from combined dermatology/rheumatology consult at [facility] with Dr. Luly Fisher Assessment & [...] may benefit from combined dermatology/rheumatology consult at [facility] with Dr. Luly Fisher Assessment & [...] may benefit from combined dermatology/rheumatology consult at [facility] with Dr. Luly Fisher Assessment & [...] may benefit from combined dermatology/rheumatology consult at [facility] with Dr. Luly Fishre Assessment & Plan (01/05/2024 11:05 AM EDT): [...] may benefit from combined dermatology/rheumatology consult at [facility] with Dr. Luly Fisher Assessment & [...] may benefit from combined dermatology/rheumatology consult at [facility] with Dr. Luly Fisher Assessment & [...] may benefit from combined dermatology/rheumatology consult at [facility] with Dr. Luly Fisher Assessment & [...] may benefit from combined dermatology/rheumatology consult at [facility] with Dr. Luly Fisher if above [...] may benefit from combined dermatology/rheumatology consult at [facility] with Dr. Luly Fisher Assessment & [...] may benefit from combined dermatology/rheumatology consult at [facility] with Dr. Luly Fisher Assessment & [...] may benefit from combined dermatology/rheumatology consult at [facility] with Dr. Luly Fisher Assessment & [...] may benefit from combined dermatology/rheumatology consult at [facility] with Dr. Luly Fisher Assessment & [...] may benefit from combined dermatology/rheumatology consult at [facility] with Dr. Luly Fisher History of [...] and good hydration. History of smoking 12/10/2017 5 Assessment & Plan (09/09/2021 8:32 PM EST): Over 14-iqyr-wxti history of smoking-quit in 2016-great risk factor for multiple lungs diseases--close monitoring necessary. Other pneumonia, unspecified organism 10/16/2017 12/25/2017 Encounters Date Type Department Care Team Description 05/26/2025 Documentation [facility] [address] [place] [address] Win Reyes PA-C 05/26/2025 Telephone [facility] [address] [place] [address] Constance Scherer, MAYNOR TCM Visit 05/23/2025 Orders Only [facility] [address] [facility] [place] t[place] [id number] Chanell Taylor MD 05/05/2025 Telephone [facility] [address] [place] [address] Constance Scherer, technical programs manager Refill 05/05/2025 Refill [facility] [address] [facility] [place] [address] Win Reyes PA-C Medication Refill 04/22/2025 9:00 AM EDT Office Visit [facility] [address] [place] [address] Win Reyes PA-C Chronic obstructive pulmonary disease, unspecified COPD type (Primary Dx); Routine general medical examination at a health care facility; Other pneumonia, unspecified organism; Benign essential hypertension; Pure hypercholesterolemia; Gastroesophageal reflux disease with esophagitis without hemorrhage; Lupus erythematosus tumidus; NSTEMI (non-ST elevated myocardial infarction) 03/31/2025 2:30 PM EDT Office Visit [facility] Rhe[facility] [address] [place] [address] [place] [address] Edie Pina MD Arthritis of knee, right (Primary Dx); care home current use of aspirin; Lupus erythematosus tumidus 03/24/2025 10:00 AM EDT Office Visit [facility] Rheumatology [address] [place] [address] [place] [address] Edie Pina MD Arthritis of knee, right (Primary Dx); Lupus erythematosus tumidus; care home current use of aspirin 03/17/2025 8:30 AM EDT Office Visit [facility] Rheumatology [address] [place] [address] [place] [address] Edie Pina MD Primary osteoarthritis of both knees (Primary Dx); Lupus erythematosus tumidus; History of pneumonia 02/26/2025 Telephone [facility] [place] [address] Erinn Conte, DARIAN 02/26/2025 Orders Only [facility] [address] [place] [address] Provider, MD Chanell from Last 3 Months Immunizations Immunization Administration [...] Description 05/29/2025 9:40 AM EDT Office Visit [facility] [address] [place] [address] Win Reyes PA-C [address] [place] [address] 06/11/2025 7:20 AM EST Office Visit [facility] [address] [place] [address] Win Reyes PA-C [address] [place] [address] 06/12/2025 9:00 AM EST Office Visit [facility] Rheumatology [address] [place] [address] Edie Pina MD [address] [facility], [address] [place] [address] [email or web address] Health Maintenance Due Date Last Done Comments COLOGUARD 1999 FOBT 1999 SIGMOIDOSCOPY 1999 VIRTUAL COLONOSCOPY 1999 FIT TEST 05/26/2022 05/26/2021 INFLUENZA VACCINE (#1) 2025 , 05/02/2023, 05/06/2022, Additional history exists COVID-19 VACCINE ( season) 2025 04/25/2024, 05/02/2023, 05/06/2022, Additional history exists BLOOD PRESSURE 10/20/2025 04/22/2025 LUNG CANCER SCREENING (LDCT Only) 01/24/2026 01/24/2025, 08/24/2022, 11/07/2017 DEPRESSION SCREENING 04/15/2026 04/15/2025 CREATININE LEVEL 05/23/2026 05/23/2025, , 11/07/2024, Additional history exists POTASSIUM LEVEL 05/23/2026 05/23/2025, 06/2 12/2024, 11/07/2024, Additional history exists LIPID PANEL 01/29/2030 01/29/2025, 06/0 11/2023, 07/13/2023, Additional history exists Adult Td,Tdap Booster 09/16/2031 09/16/2021, 011 COLONOSCOPY 02/18/2034 02/19/2024, 03/0 02/2023, 10/11/2022, Additional history exists COLORECTAL CANCER [...] REPORT ONLY Routine 05/23/2025 10:54 AM EDT OUTSIDE POTASSIUM LEVEL Routine 05/23/2025 OUTSIDE ALT LEVEL Routine 05/23/2025 OUTSIDE SERUM CREATININE LEVEL Routine 05/23/2025 LIPID PANEL Routine 01/29/2025 9:23 AM EDT [...] Relevant to Health Maintenance Results * Outside XR??Chest Report Only (05/23/2025 10:59 AM EDT) Historical Provider [facility] XR CHEST Final Res ult * Outside CT??Chest Report Only (05/23/2025 10:54 AM EDT) Historical Provider [facility] CT CHEST Final Res ult * Outside Potassium Level (05/23/2025) Potassium level - External 3.6 3.4 - 5.0 mmol/L Historical Provider LAB BLOOD ORDERABLES Joi l Result * Outside Serum Creatinine Level (05/23/2025) Creatinine, serum - External 1.01 0.8 - 1.3 mg/dL Historical Provider LAB BLOOD ORDERABLES Joi l Result * Outside ALT Level (05/23/2025) ALT - External 27 5 - 30 U/L Historical Provider LAB BLOOD ORDERABLES Joi l Result * (ABNORMAL) Lipid panel (01/29/2025 9:23 AM EDT) HDL 74 mg/dL [facility] Comment: Interpretation <40 mg/dL: Low HDL cholesterol (major risk factor for CHD) Greater than or equal to 60 mg/dL: High HDL cholesterol ( negative risk factor for CHD) HDL - cholesterol is affected by a number of factors, e.g. smoking, excerise, hormones, sex and age. CHOLESTEROL 119 0 - 240 mg/dL [facility] TRIGLYCERIDES 57 30 - 160 mg/dL [facility] LDL 34(L) 50 - 129 mg/dL [facility] Comment: LDL levels in terms of risk for coronary heart disease: <100 mg/dL: Optimal 100-129 mg/dL: Near or above optimal 130-159 mg/dL: Borderline high 160-189 mg/dL: High >190 mg/dL: Very High CARDIAC RISK RATIO 1.6(L) 3.4 - 5.0 C [facility] Blood 01/29/2025 9:23 AM EDT 01/29/2025 9:27 AM EDT Ted Pearl MD LAB BLOOD ORDERABLES Final Re sult [address] [id number] * COLONOSCOPY FOR RESULT ENTRY ONLY (02/19/2024) [...] AM EST) HCV NON-REACTIV E NON-REACTI VE [facility] Blood 09/15/2021 7:26 AM EST 09/15/2021 7:39 AM EST us Edie Pina MD LAB BLOOD ORDERABLES Fin al Result Performing Organization Address City/State/[facility] Co de Phone Number [address] [address] * US Abdominal Aortic Screening (06/01/2021 7:48 [...] EDT) Immuno Fecal Occult Positive(A ) Negative [facility] Stool (Stool) 05/26/2021 7:2 3 PM EDT 05/26/2021 7:26 PM EDT Ted Pearl MD BODY FLUIDS AND STOOLS ORDERA BLES Final Result Performing Organization Address City/State/[facility] Co de Phone Number [address] [address] from Last 3 Months or Most Recently Relevant to Health Maintenance Insurance MEDICARE PPO BLUE REPLACEMENT [facility] MEDICARE PPO BLUE REPLACEMENT [address] [address] MED[address]PO [address]UE [address] [place] [address] MEDIC[address]PO [address] [place] [address] MED[address] [place] [address] MEDICARE PPO BLUE REPLACEMENT [address] [place] [address] MEDICARE PPO BLUE REPLACEMENT [place] MEDIC[place] P[place] BLUE REPLACEMENT Care Teams Primer Press Operator Relationship Specialty Start Date End Date Win Reyes PA-C [address] [place] [phone] [email or web address] [email or web address] - General Physician Preschool Assistant Teacher 04/22/25 Sterling Ware MD Dermatology 12/20/19 Tyrel Amaya MD [address] [place] [address] [place] [address] Pulmonary Disease 02/17/20 Andrzej Garland MD [address] [place] [address] [place] [address] Ophthalmology 04/07/20 Additional Source Comments The information contained in this document represents components of the legal health record. It is not the complete legal health record.[facility]
== END 2025-05-26 12:48 | disposition home or self-care (01) ==
LOC: HO.XRAY 12:47
PROVIDERS: PCP Internal Medicine; Visit Provider Nurse Practitioner Family
DX: J98.6 Disorders of diaphragm (principal)
CPT/HCPCS: 76000

== ENCOUNTER → 2025-05-26 13:15 | Outpatient (BNV) | payer MEDICARE, SELFPAY | PROVIDERS: PCP Internal Medicine; Visit Provider Radiology Diagnostic Radiology | DX: J98.6 Disorders of diaphragm (principal) | CPT/HCPCS: 76000 ==

== ENCOUNTER 2025-06-14 01:56 | Inpatient (IN) | payer MEDICARE, SELFPAY ==
--- OUTSIDE RECORDS SUMMARY | 2025-06-11 07:20 | XMS_ITS | Encounter Summary ---
Author Organization [facility] Address [address] [place] [id number] Phone Care Team Providers Care Driver'S Education Instructor Name Role Phone Sterling Ware MD Unavailable [phone] Tyrel Amaya MD Unavailable Andrzej Graland MD Unavailable [phone] Win Reyes PA-C Primary Care Provider [phone] Reason for Visit * Reason Comments Medicare Annual Wellness Visit Subsequen t Encounter Details Date Type Department Care Team (Latest Contact Info) Description 06/11/2025 7:20 AM EST Office Visit [facility] Internal Medicine [address] [place], [place] [id number] Win Reyes PA-C [address] [place] [address] [email or web address] Routine general medical examination at a health care facility (Primary Dx); NSTEMI (non-ST elevated myocardial infarction); Lupus erythematosus tumidus; Gastroesophageal reflux disease with esophagitis without hemorrhage; Pure hypercholesterolemia; Benign essential hypertension; Chronic obstructive pulmonary disease, unspecified COPD type; Prostate cancer screening Social History Tobacco Use Types Packs/Day Years Used Date Smoking Tobacco: Former Cigarettes 2 46.1 1 970 - 09/15/2015 Smokeless Tobacco: Never Alcohol Use Standard Drinks/Week Comments Yes 42 (1 standard drink = 0.6 oz pu re alcohol) 6 beers a night noted 06/11/25 Child or Family Care Answer Date Record [...] housing situation today? I have wanda lopez 12/13/2024 How many times have you move [...] on file documented as of this encounter Last Filed Vital Signs Vital Sign Reading Time Taken Comments Blood Pressure 144/88 06/11/2025 7:55 AM EST Pulse 55 06/11/2025 7:14 AM EST Temperature - - Respiratory Rate 21 06/11/2025 7:14 AM EST Oxygen Saturation 98% 06/11/2025 7:14 AM EST Inhaled Oxygen Concentration - - Weight 76.1 kg (167 lb 12.8 oz) 06/11/2025 7:14 AM EST Height 169.3 cm (5' 6.65 ) 06/11/2025 7:14 AM ES T Body Mass Index 26.55 06/11/2025 7:14 AM EST documented in this encounter Progress Notes * Win Reyes PA-C - 06/11/2025 7:20 AM EST Reason for Visit: The patient presents today for subsequent annual wellness visit and has the following concerns and problems: No chief complaint on file. Patient with a past medical history of Narvaez's esophagus, GERD, COPD, hypertension, hyperlipidemia, lupus, non-STEMI, ammonia and colon polyps who presents today for his MWV. He has a history of COPD, diagnosed approximately 15 to 20 years ago, which was initially mild and asymptomatic. Following two episodes of pneumonia within a three-week span, he began experiencing shortness of breath and now feels the effects of COPD regularly. He is currently under the care of a executive legal secretary and is on antibiotics for suspected pneumonia. His inhaler dosage was recently increased from 100 to 200, which has improved his condition. He has never required oxygen or BiPAP for his COPD but has received oxygen during hospital stays for pneumonia. This year, he has had three or fourbouts of pneumonia, compared to one or two in previous years. He is due for his influenza vaccine in 05/2025 and has already received the RSV vaccine. He is also on two different types of inhalers. He was diagnosed with a non-STEMI and underwent a cardiac catheterization at [facility], which showedno blockages. He is currently on atorvastatin and aspirin. He has a history of hypertension and is currently on losartan 100 mg daily and atenolol 50 mg daily. He took his medications this am, about hour and half before his appt. His BP is noted at 160/80. He has a history of hyperlipidemia who is on a statin with his last lipid panel back in May 2025 which was within normal. He has a history of reflux and Narvaez's esophagus and is under the care of a electronic equipment trades worker. His last endoscopy and colonoscopy were performed a year and a half ago, during which some small polyps were removed. He has had two colonoscopies to date. He does not experience heartburn as long as he takes his Nexium. He has a follow-up appointment scheduled with his electronic equipment trades worker. He has a history of lupus and is currently on Plaquenil 200 mg twice daily. He was previously receiving prednisone injections from a diesel electrician for his lupus. He now sees a car body mechanic every six months and reports feeling well on Plaquenil. He also sees an lean coach annually. He has knee problems and received gel injections in his right knee about two months ago, which did not provide relief. He had an appointment for knee replacement surgery but decided against it due tohis living situation. He has tried QC [employer] treatments without success Healthcare maintenance: Colonoscopy: February 2024 PSA: needs one Dentist: needs to go - only has bottom teeth. Eye: Jul 2024. Reviewed and Updated the following: Past Medical History: Diagnosis Date Narvaez's esophagus De Quervain's disease (tenosynovitis) GERD (gastroesophageal reflux disease) History of chronic obstructive pulmonary disease HTN (hypertension) Hyperlipidemia Lupus erythematosus tumidus NSTEMI (non-ST elevated myocardial infarction) Pneumonia Tubulovillous adenoma 12/2021 f/b [facility] GI found in colonoscopy done 12[place]20[place] [facility] Past Surgical History: Procedure Laterality Date Declines colonoscopy stool guiac given Declines colonoscopy stool guiac given EYE SURGERY Laser surgery right eye fat behind eye INGUINAL HERNIA REPAIR left inguinal surgery repair VASECTOMY Medications albuterol 90 mcg/actuation inhaler 2 puff, Every 6 hours PRN atenolol (TENORMIN) 50 mg tablet 50 mg, Every morning atorvastatin (LIPITOR) 80 MG tablet 80 mg, Daily BREO ELLIPTA 200-25 mcg/dose inhaler 1 puff, Daily esomeprazole (NEXIUM) 40 MG capsule 40 mg, Nightly hydroxychloroquine (PLAQUENIL) 200 mg tablet 200 mg, 2 times daily LAXATIVE, BISACODYL, 5 mg EC tablet 5-10 mg, As needed losartan (COZAAR) 100 MG tablet 100 mg, Every morning Depression Screenin12/13/2024 2:46 PM 04/15/2025 5:22 PM 06/04/2025 5:11 PM PHQ Depression Screening Score Little interest or pleasure in doing things Not at all Not at all Not at all Feeling down, depressed, or hopeless Not at all Not at all Not at all 2021 8:44 AM 07/08/2022 8:55 AM 07/06/2023 12:48 PM 12/13/2024 2:45 PM 04/15/2025 5:21 PM 06/04/2025 5:10 PM PROMS ELLIOTT-2/7 Feeling nervous, anxious or on edge Not at all Not at all Not at all Not at all Not at all Not at all Not being able to stop or control worrying Not at all Not at all Not at all Not at all Not at all Not at all PROMs Generalized Anxiety Disorder Screening Score (ELLIOTT-2) 0 (Negative) 0 (Negative) 0 (Negative) 0(Negative) 0 (Negative) 0 (Negative) Falls risk: See Get Up and Go results in Complex Vitals below. @FALLRISK@ Cognition & Hearing: Gen: Alert, pleasant and cooperative, no acute distress. HEENT: Atraumatic, normocephalic. PERRL. No gross hearing deficits noted. Mucous membranes moist. Neck supple and symmetrical. No palpable cervical adenopathy. Skin: [place], warm, dry. Spider veins over posterior chest Lungs clear to auscultation bilaterally without accessory breath sounds or increased respiratory effort. CV: RRR, no murmurs, rubs, gallops appreciated. Abd: Soft, nontender, nondistended. No rebound, no guarding, no CVA tenderness Prostate exam declined. Ext: No gross deformities. Moving all extremities comfortably. Equal strength bilaterally. Extremities well perfused without clubbing or cyanosis. Neuro: CN II-XII grossly intact, no strength deficits. Alert and oriented x 3. Normal speech and language. Memory intact. Mood appropriate. LABS: Latest Reference Range & Units 05/29/25 08:22 Sodium 133 - 146 mmol/L 140 Potassium 3.3 - 5.1 mmol/L 4.4 Chloride 96 - 108 mmol/L 103 Carbon Dioxide 21 - 35 mmol/L 25 BUN 6 - 19 mg/dL 13 Creatinine 0.5 - 1.5 mg/dL 0.70 eGFR (Creatinine) >59 mL/min/1.73m2 99 Glucose 70 - 95 mg/dL 70 - 99 mg/dL 78 85 Anion Gap 10 - 20 mmol/L 16 Albumin 3.9 - 4.8 g/dL 3.9 Bilirubin (Total) 0.0 - 1.2 mg/dL 0.8 Calcium 8.4 - 10.3 mg/dL 10.0 Total Protein 6.5 - 8.0 g/dL 7.3 AST (SGOT) 0 - 37 U/L 27 ALT (SGPT) (U/L) 0 - 40 U/L 38 Alk Phos 39 - 117 U/L 93 Globulin 1 - 4.8 g/dL 3.4 CK 35 - 232 U/L 29 (L) Cholesterol 0 - 240 mg/dL 127 Chol/HDL Ratio 3.4 - 5.0 2.4 (L) HDL Cholesterol mg/dL 54 LDL Cholesterol 50 - 129 mg/dL 60 Triglycerides 30 - 160 mg/dL 67 TSH 0.27 - 4.20 uIU/mL 1.37 WBC 4.00 - 11.00 K/uL 9.95 RBC 4.50 - 5.90 M/uL 4.49 (L) Hgb 13.5 - 17.5 g/dL 13.6 HCT 41.0 - 53.0 % 42.1 MCV 80.0 - 100.0 fL 93.8 MCH 27.0 - 31.0 pg 30.3 MCHC 32.0 - 36.0 g/dL 32.3 PLT 150 - 450 K/uL 336 MPV 8.4 - 12.0 fL 9.3 RDW 11.5 - 14.5 % 13.0 Diff Method Manual Total Cells Counted 100 Neutrophils 48.0 - 76.0 % 72.0 Lymphs 18.0 - 41.0 % 20.0 Monos 4.0 - 11.0 % 6.0 Eos 0.0 - 5.0 % 1.0 Myelocytes 0 % 1.0 (H) NRBC% (auto) 0.00 /100 WBCs 0.00 Neutrophil # 1.92 - 7.60 K/uL 7.16 Lymph# 0.72 - 4.10 K/uL 1.99 [place]# 0.16 - 1.10 K/uL 0.60 Eos# 0.00 - 0.50 K/uL 0.10 Myelocyte# K/uL 0.10 NRBC#, auto 0.00 K/uL 0.00 [place] Cells None PRESENT ! ESR 0 - 20 mm/h 69 (H) C3 81 - 157 mg/dl 152 C4 12 - 39 mg/dL 51 (H) dsDNA Ab titer Negative at 1:10 CRP (mg/L) 0.0 - 4.0 mg/L 37.9 (H) (L): Data is abnormally low (H): Data is abnormally high !: Data is abnormal Living situation: Lives with Family Diet: Regular Diet ADL: No issues with: dressing, bathing, walking, shopping, housekeeping, and financial advisor trainee Home/Outside Services: none Advanced Care Planning Values and Goals:? See Advanced Care Planning Module Home Safety: Who checks on patient: Spouse Frequency: daily The following home safety topics were reviewed: No concerning issues identified No issues obtaining food. CODE STATUS: FULL HCP: - Nay /? Daughter is a nurse Assessment & Plan NSTEMI (non-ST elevated myocardial infarction) Patient noted to have a non-STEMI during one of his hospital stays for COPD/pneumonia. Patient underwent cardiac cath which according to the patient was noted to be negative. His symptoms were most likely in the setting of heart strain from pneumonia. Patient was seen by cardiology who felt that itwas not a true LA. Patient was placed on atorvastatin 80 mg daily and aspirin 81 mg as well as atenolol. This regimen will be continued Lupus erythematosus tumidus Feeling good on Hydroxychloroquine 200 mg twice a day. Follows up with car body mechanic every six months and sees an eye doctor once a year due to potential side effects of Hydroxychloroquine. - Should continue current medication regimen and follow up with specialists as scheduled. Gastroesophageal reflux disease with esophagitis without hemorrhage No current symptoms as long as Nexium (generic) is taken. His last EGD was 2 years ago. He stated at that time it looked fine. - Scheduled for a follow-up in five years; should continue current medication regimen and follow upwith electronic equipment trades worker as scheduled. Pure hypercholesterolemia Patient with a history of hyperlipidemia as well as a non-STEMI in the past. His last lipid panel was back in May 2025 which was within normal limits. -Continue Lipitor 80 mg daily Benign essential hypertension Patient with a history of hypertension who is on losartan 100 mg daily and atenolol 50 mg daily. This regimen will be continued Chronic obstructive pulmonary disease, unspecified COPD type Patient with a history of COPD who follows with pulmonary. Patient is on Breo 200/25 mcg inhalationdaily and albuterol MDI as needed. He states that this has been managing his symptoms. -Follow-up with pulmonary as scheduled -Continue Breo 200 mg / 25 mcg inhalation daily and albuterol MDI as needed - Should rinse mouth after using the inhaler to prevent oral thrush. Routine general medical examination at a [facility] care facility Patient underwent labs prior to his appt which were discussed during his physical. Patient is UTD- colonoscopy back in 2023. Annual physical 1 year. Prostate cancer screening Obtain PSA Immunizations: Immunization History Administered Date(s) Administered COVID-19 (Pre-05/29) Pfizer Vaccine, Bivalent 12+ 05/06/2022 COVID-19 (Pre-05/29) Pfizer Vaccine, mRNA, PF 10/03/2020, 10/24/2020, 03/25/2021 COVID-19 (Pre-05/29) Pfizer Vaccine, mRNA, azra-sucrose, PF 11/23/2021 COVID-19 Pfizer Comirnaty Vaccine 12+ 05/02/2023, 04/25/2024 INFLUENZA, SPLIT VIRUS, TRIVALENT PF 08/23/2012, 04/29/2015, 05/11/2016, 05/11/2017, 04/11/2020 INFLUENZA, SPLIT VIRUS, TRIVALENT W/ PRESERVATIVE IM 08/23/2012, 05/15/2013, 04/21/2015, 05/11/2016 Influenza High-Dose Quadrivalent Preservative Free IM 05/06/2022 Influenza High-Dose Trivalent Preservative Free IM 04/25/2024 Influenza Quadrivalent Adjuvanted Preservative Free IM 04/23/2021, 05/02/2023 Influenza Quadrivalent Preservative Free IM 06/01/2018, 06/02/2019 Influenza, Unspecified Formulation 06/02/2019 Pneumococcal conjugate PCV13 12/20/2019 Pneumococcal polysaccharide PPSV23 10/09/2012, 02/18/2021 RSV Vaccine (monovalent, adjuvanted) 06/14/2023 Tdap 09/13/2010, 09/16/2021 Zoster live 12/27/2016 Zoster recombinant 09/16/2021, 11/15/2021 Review and update of patient care team completed: Patient Care Team: Win Reyes PA-C as PCP - General (Physician Tomographic Tech) Sterling Ware MD (Dermatology) Tyrel Amaya MD (Pulmonary Disease) Andrzej Garland MD (Ophthalmology) 5-10 year preventative screening recommendations discussed. See After Visit Summary for patient specific recommendations Any positive findings to be reviewed by the provider. Summary: AVS given to patient Information gathered at the initial wellness visit was reviewed and updated. Patient was given personalized health advice and appropriate referrals to health education or preventive counseling services or programs aimed at reducing identified risk factors and improving self-management and wellness,including weight loss, physical activity, smoking cessation, fall prevention, and nutrition. Win Reyes PA-C documented in this encounter Miscellaneous Notes * Assessment & Plan Note - Win Reyes PA-C - 06/11/2025 7:20 AM EST Associated Problem(s): NSTEMI (non-ST elevated myocardial infarction) Patient noted to have a non-STEMI during one of his hospital stays for COPD/pneumonia. Patient underwent cardiac cath which according to the patient was noted to be negative. His symptoms were most likely in the setting of heart strain from pneumonia. Patient was seen by cardiology who felt that itwas not a true LA. Patient was placed on atorvastatin 80 mg daily and aspirin 81 mg as well as atenolol. This regimen will be continued * Assessment & Plan Note - Win Reyes PA-C - 06/11/2025 7:20 AM EST Associated Problem(s): Lupus erythematosus tumidus Feeling good on Hydroxychloroquine 200 mg twice a day. Follows up with car body mechanic every six months and sees an eye doctor once a year due to potential side effects of Hydroxychloroquine. - Should continue current medication regimen and follow up with specialists as scheduled. * Assessment & Plan Note - Win Reyes PA-C - 06/11/2025 7:20 AM EST Associated Problem(s): Gastroesophageal reflux disease No current symptoms as long as Nexium (generic) is taken. His last EGD was 2 years ago. He stated at that time it looked fine. - Scheduled for a follow-up in five years; should continue current medication regimen and follow upwith electronic equipment trades worker as scheduled. * Assessment & Plan Note - Win Reyes PA-C - 06/11/2025 7:20 AM EST Associated Problem(s): Hyperlipidemia Patient with a history of hyperlipidemia as well as a non-STEMI in the past. His last lipid panel was back in May 2025 which was within normal limits. -Continue Lipitor 80 mg daily * Assessment & Plan Note - Win Reyes PA-C - 06/11/2025 7:20 AM EST Associated Problem(s): Benign essential hypertension Patient with a history of hypertension who is on losartan 100 mg daily and atenolol 50 mg daily. This regimen will be continued * Assessment & Plan Note - Win Reyes PA-C - 06/11/2025 7:20 AM EST Associated Problem(s): Chronic obstructive pulmonary disease (HCC) Patient with a history of COPD who follows with pulmonary. Patient is on Breo 200/25 mcg inhalationdaily and albuterol MDI as needed. He states that this has been managing his symptoms. -Follow-up with pulmonary as scheduled -Continue Breo 200 mg / 25 mcg inhalation daily and albuterol MDI as needed - Should rinse mouth after using the inhaler to prevent oral thrush. * Assessment & Plan Note - Win Reyes PA-C - 06/11/2025 7:20 AM EST Associated Problem(s): Routine general medical examination at a health care facility Patient underwent labs prior to his appt which were discussed during his physical. Patient is UTD- colonoscopy back in 2023. Annual physical 1 year. * Assessment & Plan Note - Win Reyes PA-C - 06/11/2025 7:20 AM EST Associated Problem(s): Prostate cancer screening Obtain PSA documented in this encounter Plan of Treatment Upcoming Encounters Date Type Department Care Team (Late st Contact Info) Description 09/11/2025 7:20 AM EST Office Visit [facility] Internal Medicine [address] [place] [address] Win Reyes PA-C [address] [place] [address] [email or web address] 12/10/2025 8:00 AM EDT Office Visit [facility] Rheumatology [address] [place] [address] Edie Pina MD [address] [facility], [address] [place] [address] [email or web address] documented as of this encounter Results * Prostate Specific Antigen (PSA), Monitoring (06/12/2025 11:49 AM EST) PSA Monitoring 1.60 ng/mL 06/12/2025 9:07 PM EST [facility] Comment:Post radical prostat ectomy results should be <0.1 ng/mL. Post therapy for other types of treatment should be <1.0 ng/mL. Blood (Blood) Venipuncture / Unknown 06/12/2025 11:49 AM EST 06/12/2025 11:49 AM EST Narrative [facility] - 06/12/2025 9:07 PM EST Test performed by [employer] electrochemiluminescent immunoassay (ECLIA). Results obtained by assays using different manufacturers or methods may not be comparable and cannot be used interchangeably for patient monitoring. us Win Reyes PA-C LAB BLOOD BKR ORDERABLES Joi schwartz Result [facility] [address] [place] [address] documented in this encounter Visit Diagnoses Diagnosis Routine general medical examination at a health care facility- Primary NSTEMI (non-ST elevated myocardial infarction) Acute myocardial infarction, subendocardial infarction, episode of care unspecified Lupus erythematosus tumidus Gastroesophageal reflux disease with esophagitis without hemorrhage Pure hypercholesterolemia Benign essential hypertension Essential hypertension, benign Chronic obstructive pulmonary disease, unspecified COPD type Prostate cancer screening Special screening for malignant neoplasm of prostate documented in this encounter Additional Health Concerns Assessment Noted Time PHQ-2 Depression Total Score: 0 06/04/20 25 5:11 PM EDT documented as of this encounter Care Teams Driver'S Education Instructor Relationship Specialty Start Date End Date Win Reyes PA-C [address] [place] [id number] PCP - General Physician Tomographic Tech 04/22/25 Sterling Ware MD Dermatology 12/20/19 Tyrel Amaya MD [address] [place] [address] [place] [address] Pulmonary Disease 02/17/20 Andrzej Garland MD [address] [place] [address] [place] [address] Ophthalmology 04/07/20 documented as of this encounter Additional Source Comments The information contained in this document represents components of the legal health record. It is not the complete legal health record.[facility]
--- OUTSIDE RECORDS SUMMARY | 2025-06-12 09:00 | XMS_ITS | Encounter Summary ---
Author Organization [facility] Address [address] [place] [address] Phone Care Team Providers Care Coater Carbon Paper Name Role Phone Sterling Ware MD Unavailable [phone] Tyrel Amaya MD Unavailable Andrzej Garland MD Unavailable [phone] Win Reyes PA-C Primary Care Provider [phone] Reason for Visit * Reason Comments Follow-up Primary osteoarthrit is of both knees Encounter Details Date Type Department Care Team (Latest Contact Info) Description 06/12/2025 9:00 AM EST Office Visit [facility] Rheumatology [address] [place] [address] Edie Pina MD [address], [address] [place] [address] [email or web address] Lupus erythematosus tumidus (Primary Dx); Primary [...] Date: 06/12/2025 Time: 9:30 AM HPI: Hardy Jackosn is a right-handed dominant 70 y.o.male here for a f/u re: 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 He has concomitant systemic lupus erythematosus diagnosed about 4 years ago but present based on his report for about 25-30 years. Diagnosis was based on skin biopsy from 07/24/2020 at [facility]. There is concomitant polyarticular osteoarthritis particularly [...] his left lung that brought him to [facility] on 05/23/2025-he got discharged on 05/25/2025 [...] was explained by his orthopedic surgeon at [facility] that if he is not satisfied with 5 PRP injections after 3 months he can get number 6 injection for free. Since the visit on 09/06/2024 Hardy suffered from pneumonia on 2 occasions within the month of December 2024 and just returned from [facility] on 01/08/2025 where he was treated for [...] pneumonia. He had recent checkup with his sr. consultant on 12/26/2024 that reassured no signs of [...] on 2 occasions. I used to see leather sponger every 3 months. Since I am on Plaquenil I did not need intramuscular cortisone injection by leather sponger since October 2021 until mid June 2022 . My lupus tumidus still flares on and off but not as bad as prior to taking Plaquenil . His last ocular checkup was in April 2024-no signs of Plaquenil toxicity. He got diagnosed with exocrine pancreatic insufficiency(EPI) after seeing facilities coordinator for stomach issue -I stopped Protonix for [...] GI found in colonoscopy done 12/2021 at [facility] Past Surgical History: Procedure Laterality Date Declines [...] with his in a 2-level house with [employer] and reports generally no problems walking on stairs, uses rails, no falls. 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 Admits to drinking > 2 beers daily x 10 years, no IVDA, STD or blood transfusions. Hobby: Walking 10-12 K steps daily, fishing, playing active videogames 2x/week for about 30 minuteseach time. Meeting every Monday with his former boss and current boss from the [employer] Family History: family history includes Cancer in [...] Edie Bradford M.D., Director Clinical Immunology Laboratory [id number] Normal: Negative at 1:10 To interpret a negative test for anti-ivanof bay or double stranded DNA antibodies in a [...] I have re-reviewed the discharge summary from [facility] prepared by Dr. Valente Jerome, DO from 01/08/2025-see details in media section of [facility]. Skin biopsy from 07/24/2020 at [facility] Department of Pathology: Skin, left upper [...] appreciated. (See details in media section of [facility]) Assessment and Plan : 1. Lupus erythematosus [...] may benefit from combined dermatology/rheumatology consult at [facility] with Dr. Luly Fisher Orders: - hydroxychloroquine [...] starting Plaquenil again and follow instructions flow sr. consultant. Daily sun protection all year round [...] starting Plaquenil again and follow instructions flow sr. consultant. Daily sun protection all year round [...] may benefit from combined dermatology/rheumatology consult at [facility] with Dr. Luly Fisher documented in this encounter Plan of Treatment Upcoming Encounters Date Type Department Care Team (Late st Contact Info) Description 09/11/2025 7:20 AM EST Office Visit [facility] [place] Internal Medicine [address] [place] [address] Win Reyes PA-C [address] [place] [address] 12/10/2025 8:00 AM EDT Office Visit [facility] Rheumatology [address] [place] [address] Edie Pina MD [address], [address] [place] [address] [email or web address] documented as of this encounter Visit Diagnoses Diagnosis Lupus erythematosus tumidus- Primary Primary osteoarthritis of both knees Raynaud's phenomenon without gangrene Gastroesophageal reflux disease with esophagitis without hemorrhage Long-term use of Plaquenil On statin therapy documented in this encounter Additional Health Concerns Assessment Noted Time PHQ-2 Depression Total Score: 0 06/04/20 25 5:11 PM EDT documented as of this encounter Care Teams Coater Carbon Paper Relationship Specialty Start Date End Date Win Reyes PA-C [address] [place] [address] [email or web address] PCP - General Physician Circuit Board Drafter 04/22/25 Sterling Ware MD [email or web address] Dermatology 12/20/19 Tyrel Amaya MD [address] [place] [address] [place] [address] Pulmonary Disease 02/17/20 Andrzej Garland MD [address] [place] [address] [place] [address] Ophthalmology 04/07/20 documented as of this encounter Additional Source Comments The information contained in this document represents components of the legal health record. It is not the complete legal health record.[facility]
[2025-06-14] VITALS (8 sets, daily range): BP systolic 107–150; BP diastolic 61–79; PULSE 67–111; RESP 16–24; TEMP 36.4–37.7; O2SAT 89–97; BMI 26.5
--- NOTE | ~2025-06-14 | XR_ITS ---
CLINICAL HISTORY: SOB 1 view chest x-ray Comparison: CT/REG/SR - CT CHEST WO IV CON - 05/23/25 03:25 EDT CR - XR CHEST 1V - 05/23/25 01:20 EDT CR - XR CHEST 1V - 01/02/25 04:02 EDT Findings: Right middle lobe consolidation. Left lung is clear. Cardiomediastinal silhouette is stable. No acute fracture. IMPRESSION: Right middle lobe pneumonia. This document has been electronically signed by: Sylvester Benz MD on 06/14/2025 05:53:01
--- NOTE | 2025-06-14 02:04 | ECG_ITS ---
Test Reason : TACHYCARDIA Blood Pressure : */* mmHG Vent. Rate : 109 BPM Atrial Rate : 109 BPM P-R Int : 154 ms QRS Dur : 86 ms QT Int : 344 ms P-R-T Axes : 22 15 39 degrees QTcB Int : 463 ms Sinus tachycardia with Premature atrial complexes Posterior infarct , age undetermined Abnormal ECG When compared with ECG of 24-May-2025 11:16, Premature atrial complexes are now Present Vent. rate has increased by [address] now depressed in Anterior leads Nonspecific T wave abnormality, worse in Lateral leads Referred By: Generic ED Physician Electronically Signed By: Young Bauman
--- NOTE | 2025-06-14 02:17 | ED.GENADULT ---
HPI - General Adult General Chief complaint: Fever Stated complaint: fever Time Seen by Provider: 06/14/25 02:17 History of Present Illness ED Provider: Aga READ narrative: The patient is a 70-year-old male with a history of COPD. He also says that he has had problems with recurrent pneumonias recently. The patient was hospitalized last month for pneumonia. He was hospitalized on May 23 and released on May 25. At discharge he was prescribed amoxicillin/clavulanate and doxycycline, to continue an additional 7 days. This means that he would have finished his antibiotics proximally 2 weeks ago. He was doing well until this evening when he felt fairly abruptly ill with a sense of wheezing, some coughing, and a sense of some shortness of breath. He checked his temperature at home and found that he had a temperature of 103 degrees. At midnight he took 2 Tylenol but ultimately came to the hospital. He denies chest pain. Here in the emergency room he was noted to have oxygen saturations below 90 and he was placed on oxygen. He is not on oxygen at home. The patient has been found to have an abnormal EKG recently. This prompted a cardiac catheterization 5 months ago on January 07 at [facility]. There was no significant coronary artery disease noted. Related Data Home Medications ?Medication ?Instructions ?Recorded ?Confirmed hydroxychloroquine 200 mg tablet 200 mg PO BID 03/14/23 05/23/25 multivitamin 1 tab PO DAILY 03/21/23 05/23/25 acetaminophen 325 mg tablet 650 mg PO Q4H PRN Pain 12/11/24 05/23/25 (Tylenol) lactobacillus combination no.4 3 3,000 mmu cells PO DAILY 12/11/24 05/23/25 billion cell capsule (Probiotic) albuterol sulfate 90 mcg/actuation 2 puff inhalation Q6H PRN dyspnea 01/02/25 05/23/25 aerosol inhaler aspirin-caffeine 500 mg-32.5 mg 1 tab PO Q6H PRN Pain 01/02/25 05/23/25 tablet (Gary Back and Body) atenolol 50 mg tablet 50 mg PO DAILY 03/05/25 05/23/25 losartan 100 mg tablet 100 mg PO DAILY 04/30/25 05/23/25 Previous Rx's ?Medication ?Instructions ?Recorded walker #1 ea 06/24/24 atorvastatin 80 mg tablet 80 mg PO BEDTIME #30 tabs 01/06/25 amoxicillin 875 mg-potassium 1 tab PO Q12H #14 tabs 05/25/25 clavulanate 125 mg tablet doxycycline monohydrate 100 mg 100 mg PO Q12H #14 caps 05/25/25 capsule magnesium oxide 84.5 mg PO BID #20 caps 05/25/25 Breo Ellipta 200 mcg-25 mcg/dose 1 ea inhalation DAILY #60 ea 06/09/25 powder for inhalation (fluticasone furoate-vilanterol) esomeprazole magnesium 40 mg 40 mg PO DAILY #90 caps 06/09/25 capsule,delayed release Allergies Allergy/AdvReac Type Severity Reaction Status Date / Time ibuprofen Allergy Mild tongue Verified 06/14/25 02:01 swelling Review of Systems Review of Systems: Yes all other systems are reviewed and are negative [facility] Past Medical History Medical History Emphysema lung Pneumonia involving left lung Personal history of nicotine dependence COPD (chronic obstructive pulmonary disease) Benign paroxysmal positional vertigo Tubular adenoma Lupus Pancreatic insufficiency Tubulovillous adenoma GERD (gastroesophageal reflux disease) HTN (hypertension) Surgical History Hx of tonsillectomy History of vasectomy History of colonoscopy History of left inguinal hernia repair History of esophagogastroduodenoscopy (EGD) Family History Family History Father HTN (hypertension) Mother Cancer Sister Cancer Social History Social History Household Members: Spouse Housing: House Do you presently have visiting nurse or other home services: No Alcohol intake: current Alcohol intake frequency: 0-2 drinks per day Alcohol type: beer Patient Tobacco Use Status: Former Tobacco user Tobacco use type: Cigarette Years Smoked: 35 e-Cigarette/Vaping Use: Never Used Second Hand Smoke Exposure: No Advance Directives: Yes Advance Directives on File: Yes Advance Directives Date on File: 03/16/23 Do you have a plan to hurt others: No Plan service: No Physical Exam ED Vital Signs: Vital Signs - 24 hr 06/14/25 01:59 06/14/25 02:59 Temperature 99.8 F Pulse Rate 111 H 104 H Respiratory Rate 22 H 18 Blood Pressure 150/72 H Pulse Oximetry 89 L Oxygen Delivery Method Room Air BMI result Body Mass Index 26.5 Const Other: The patient is a somewhat chronically ill-appearing 70-year-old. He was awake and alert. He looks mildly short of breath. Mental status is normal. Orientation/consciousness: patient oriented x3 HENMT Other: The face is symmetrical. ?Mucous membranes moist. Eyes Other: Pupils are round equal, conjunctivae are clear, extraocular movements intact General: appearance normal, both eyes and all related structures Resp Other: Mild increased work of breathing. The patient has diminished air entry bilaterally. Cardio Rate: tachycardic Rhythm: regular rhythm Heart sounds: S1 normal heart sound present and S2 normal heart sound present GI Other: Abdomen is soft and nontender Skin Other: Skin is pale and dry Neuro General: patient oriented x3, tone normal, moves all extremities, no focal motor deficits and CN's II-XI intact bilaterally Extrem Other: There is no calf swelling or tenderness. No asymmetry. No peripheral edema. Medications Administered Generic Name Dose Route Start Last Admin Trade Name Freq PRN Reason Stop Dose Admin Doxycycline Hyclate 100 mg/ 250 mls @ 166.67 mls/hr 06/14/25 02:46 06/14/25 03:49 Sodium Chloride IV 06/14/25 04:15 166.67 mls/hr ONCE ONE Administration Discontinued Medications Generic Name Dose Route Start Last Admin Trade Name Freq PRN Reason Stop Dose Admin Albuterol Sulfate 2.5 mg 06/14/25 02:56 06/14/25 02:59 Albuterol Sulfate (0.083%) 2.5 Mg/3 Ml Vial.Neb INHALE 06/14/25 02:57 2.5 mg ONCE ONE Administration Ceftriaxone Sodium 2 gm/ 50 mls @ 100 mls/hr 06/14/25 02:46 06/14/25 03:41 Sodium Chloride IV 06/14/25 03:15 Infused ONCE ONE Infusion Medical Decision Making Medical Decision Making [facility] Narrative: The patient is a 70-year-old male with a history of COPD who was hospitalized a few weeks ago with a significant left lower lobe pneumonia. He has been off antibiotics for about 2 weeks. Tonight he became acutely ill with a fever of 103 and a recurrence of cough. Today he had oxygen saturation in the mid 80s. He is not normally on oxygen. We have placed him on nasal cannula oxygen. He seems stable. A chest x-ray today shows improvement in the left lung compared to his last chest x-ray but there is a new significant right lower lobe infiltrate compared to his previous chest x-ray. The patient was started on ceftriaxone and doxycycline, both IV. Blood cultures and a lactate were sent. The lactate is normal. He has a mild oxygen requirement but is otherwise hemodynamically stable. He will be admitted to the hospitalist service. He has a an EKG today that is distinctly abnormal but similar to previous EKGs and he had a recent cardiac catheterization at [facility] 5 months ago that showed no coronary disease. Lab Data 06/14/25 02:31 06/14/25 02:31 Labs: Lab Results 06/14/25 Range/Units 02:31 WBC 11.2 H (4.8-10.8) X10*3/uL RBC 3.92 L (4.60-5.80) X10*6/uL Hgb 12.0 L (14.0-18.0) g/dl Hct 35.7 L (42.0-52.0) % MCV 91.1 (80.0-98.0) fL MCH 30.6 (27.0-33.0) pg MCHC 33.6 (31.0-36.0) g/dl RDW 14.0 (11.0-16.0) % Plt Count 228 D (160-400) X10*3/uL MPV 9.1 L (9.4-12.4) fL Immature Gran % (Auto) 0.4 (0.0-0.4) % Neut % (Auto) 92.8 H (45-73) % Lymph % (Auto) 3.2 L (20-40) % [place] % (Auto) 2.8 (2-11) % Eos % (Auto) 0.3 (0-4) % Baso % (Auto) 0.5 (0-2) % Lymph # (Auto) 0.4 L (1.2-4.9) X10*3/uL [place] # (Auto) 0.3 (0.1-1.2) X10*3/uL Eos # (Auto) 0.0 (0.0-0.4) X10*3/uL Baso # (Auto) 0.1 (0.0-0.2) X10*3/uL Abs Immat Gran (auto) 0.04 H (0.00-0.03) X10*3/uL Absolute Neuts (auto) 10.4 H (2.0-8.3) x10*3/uL Absolute Nucleated RBC 0.000 (0.0-0.012) X10*3/uL Nucleated RBC % (auto) 0.0 (0.0-0.2) /100WBC Smear Tech's Comments VERIFIED Sodium 140 (135-145) mmol/L Potassium 3.6 (3.3-5.1) mmol/L Chloride 107 (96-108) mmol/L Carbon Dioxide 23 (22-29) mmol/L Anion Gap 14 (12-20) BUN 13 (9-16) mg/dL Creatinine 0.73 (0.5-1.4) mg/dL Estim Creat Clear Calc 83.7 Estimated GFR > 60 Random Glucose 132 H (60-115) mg/dL Lactic Acid 1.4 (0.5-2.0) mmol/L Calcium 9.2 (8.4-10.2) mg/dL Magnesium 1.5 L (1.6-2.6) mg/dL Total Bilirubin 1.0 (0.0-1.0) mg/dL AST 27 (5-37) U/L ALT 25 (0-40) U/L Alkaline Phosphatase 103 (39-117) U/L Troponin I High Sens 4.0 D (<3.5-35.0) ng/L C-Reactive Protein 2.49 H (< or = 0.50) mg/dL Total Protein 6.6 (6.5-8.0) g/dL Albumin 4.0 (3.5-5.0) g/dL Ethyl Alcohol < 10 mg/dL Independent Interpretation I performed an independent interpretation of an: EKG Interpretation: EKG at 08/15/2001 shows sinus tachycardia with premature atrial complexes at 109 beats per minute. There are obvious ST segment depressions in the chest leads. No reciprocal changes in the inferior leads. The patient's previous EKGs have shown a similar pattern in the past. I do not think today's EKG represents any acute change. Critical Care Time Critical Care Time Critical Care Time: Yes Total Critical Care Time: 35 Attestation: The patient was critically ill with a high probability of imminent or life-threatening deterioration. ?I spent greater than 30 minutes of discontinuous time evaluating the patient, delivering critical care at the bedside, discussing evaluating data with consultants. ?Critical care time does not include time spent performing separately billable procedures or teaching. ?Time spent performing critical care with 35 minutes. Discharge Plan Discharge Clinical Impression: Pneumonia Patient Disposition: Admitted As Inpatient Print Language: Portuguese
[2025-06-14 02:43] LABS: Hematocrit 35.7 % (42.0-52.0); Hemoglobin 12.0 g/dl (14.0-18.0); Imm Gran Abs Auto 0.04 X10*3/uL (0.00-0.03); Imm Gran Pct Auto 0.4 % (0.0-0.4); Lymphocytes Absolute Auto 0.4 X10*3/uL (1.2-4.9); MANUAL DIFF FLAG SCAN; Mean Corpuscular HGB Conc 33.6 g/dl (31.0-36.0); Mean Corpuscular Hemoglobin 30.6 pg (27.0-33.0); Mean Corpuscular Volume 91.1 fL (80.0-98.0); NRBC Abs Auto 0.000 X10*3/uL (0.0-0.012); NRBC Pct Auto 0.0 /100WBC (0.0-0.2); Platelet Count 228 X10*3/uL (160-400); Red Blood Count 3.92 X10*6/uL (4.60-5.80); SCAN SMEAR FLAG 1; White Blood Count 11.2 X10*3/uL (4.8-10.8)
--- OUTSIDE RECORDS SUMMARY | 2025-06-14 02:44 | XMS_ITS | Encounter Summary ---
Author Organization [facility] Address [address] [place] [id number] Phone Care Team Providers Care Emergency Department Technician Name Role Phone Ted Pearl MD Primary Care Provider [phone] Ted Pearl MD Unavailable [phone] Etienne Lindsey MD Unavailable Ted Pearl MD Unavailable [phone] Ted Pearl MD Primary Care Provider [phone] Sterling Ware MD Unavailable [phone] Tyrel Amaya MD Unavailable [phone] Andrzej Garland MD Unavailable [phone] Win Reyes PA-C Primary Care Provider [phone] Encounter Details Date Type Department Care Team (Latest Contact Info) Description 01/22/2018 Transcribe Orders [facility] Phleb Main [address] [place] [address] Anais Goncalves, INSPECTOR SCALES [address] [place] [address] [email or web address] Fever, unspecified fever cause (Primary Dx) [...] Description 09/11/2025 7:20 AM EST Office Visit [facility] Internal Medicine [address] [place], [place] [id number] Win Reyes PA-C [address] [place] [address] [email or web address] 12/10/2025 8:00 AM EDT Office Visit [facility] Rheumatology [address] [place] [address] Edie Pina MD [address], [address] [place] [address] [email or web address] documented as of this encounter Visit Diagnoses Diagnosis Fever, unspecified fever cause- Primary documented in this encounter Additional Health Concerns Infection Onset Date Last Indicated Resolved Time CoV-Risk 12/23/2019 12/23/2019 01/06/2020 1:24 AM EDT COVID-19 09/19/2023 09/19/2023 10/10/2023 1:21 AM EST CoV-Risk 11/07/2024 11/07/2024 11/18/2024 1:21 AM EDT documented as of this encounter Care Teams Emergency Department Technician Relationship Specialty Start Date End Date Ted Pearl MD [address] [place] [address] PCP - General Internal Medicine 09/05/17 12/17/19 Ted Pearl MD [address] [place] [id number] PCP - General Internal Medicine 12/18/19 04/21/25 Win Reyes PA-C [address] [place] [address] [email or web address] PCP - General Physician Band Reamer Machine Operator 04/22/25 Ted Pearl MD [address] [place] [phone] [email or web address] Insurance Assigned Provider 12/08/18 05/18/19 Etienne Lindsey MD [address] [place] [address] [email or web address] Insurance Assigned Provider 05/18/19 06/08/19 Ted Pearl MD [address] [place] [address] [email or web address] Insurance Assigned Provider 06/08/19 10/11/19 Sterling Ware MD [address] [place] [address] [email or web address] Dermatology 12/20/19 Tyrel Amaya MD [address] [place] [address] [place] [address] Pulmonary Disease 02/17/20 Andrzej Garland MD [address] [place] [address] [place] [address] Ophthalmology 04/07/20 documented as of this encounter Additional Source Comments The information contained in this document represents components of the legal health record. It is not the complete legal health record.[facility]
--- OUTSIDE RECORDS SUMMARY | 2025-06-14 02:44 | XMS_ITS | Encounter Summary ---
Author Organization [facility] Address [address] [place] [address] Phone Care Team Providers Care Sales Agent Financial Report Service Name Role Phone Sterling Ware MD Unavailable [phone] Tyrel Amaya MD Unavailable Andrzej Garland MD Unavailable [phone] Win Reyes PA-C Primary Care Provider [phone] Encounter Details Date Type Department Care Team (Late st Contact Info) Description 05/26/2025 Orders Only [facility] Internal Medicine [address] [place] [address] Provider, MD Chanell [address] [place] [address] Social History Tobacco Use Types Packs/Day [...] Description 09/11/2025 7:20 AM EST Office Visit [facility] [place] Internal Medicine [address] [facility] [address] Win Reyes PA-C [address] [place] [address] 12/10/2025 8:00 AM EDT Office Visit [facility] Rheumatology [address] [place] [address] Edie Pina MD [address] [facility], [address] [place] [address] [email or web address] documented as of this encounter Procedures Procedure Name Priority Date/Time Associated Diagnosis Comments OUTSIDE IMAGING Routine 05/26/2025 5:11 PM EDT documented in this encounter Results * Outside Imaging Report Only (05/26/2025 5:11 PM EDT) us Historical Provider IMG XR CHEST Final Res ult documented in this encounter Visit Diagnoses Not on filedocumented in this encounter Additional Health Concerns Assessment Noted Time PHQ-2 Depression Total Score: 0 04/15/20 25 5:22 PM EDT documented as of this encounter Care Teams Sales Agent Financial Report Service Relationship Specialty Start Date End Date Win Reyes PA-C [address] [place] [address] PCP - General Physician Manager Highway 04/22/25 Sterling Ware MD Dermatology 12/20/19 Tyrel Amaya MD [address] [place] [address] [place] [address] Pulmonary Disease 02/17/20 Andrzej Garland MD [address] [place] [address] [place] [address] Ophthalmology 04/07/20 documented as of this encounter Additional Source Comments The information contained in this document represents components of the legal health record. It is not the complete legal health record.[facility]
--- OUTSIDE RECORDS SUMMARY | 2025-06-14 02:44 | XMS_ITS | Encounter Summary ---
Author Organization [facility] Address [address] [address] Phone Care Team Providers Care Investigator Internal Revenue Name Role Phone Ted Pearl MD Primary Care Provider [phone] Sterling Ware MD Unavailable [phone] Tyrel Amaya MD Unavailable [phone] Anrdzej Garland MD Unavailable [phone] Win Reyes PA-C Primary Care Provider [phone] Encounter Details Date Type Department Care Team (Late st Contact Info) Description 07/08/2022 Procedure Pass [facility], Ct Scan - [address] [address] Social History Tobacco Use Types Packs/Day Years [...] high school, GED, job training, learning the Tristanian language, technical skills, or developing parenting skills)? [...] Description 09/11/2025 7:20 AM EST Office Visit [facility] Internal Medicine [address] [place] [address] Win Reyes PA-C [address] [place] [address] 12/10/2025 8:00 AM EDT Office Visit [facility] Rheumatology [address] [place] [address] Edie Pina MD [address] [facility], [address] [place] [address] [email or web address] documented as of this encounter Visit Diagnoses Not on filedocumented in this encounter Additional Health Concerns Infection Onset Date Last Indicated Resolved Time COVID-19 09/19/2023 09/19/2023 10/10/2023 1:21 AM EST CoV-Risk 11/07/2024 11/07/2024 11/18/2024 1:21 AM EDT Assessment Noted Time PHQ-2 Depression Total Score: 0 07/08/20 8:55 AM EST documented as of this encounter Care Teams Investigator Internal Revenue Relationship Specialty Start Date End Date Ted Pearl MD [address] [place] [address] PCP - General Internal Medicine 12/18/19 04/21/25 Win Reyes PA-C [address] [place] [address] PCP - General Physician Manager Drilling 04/22/25 Sterling Ware MD [address] [place] [address] Dermatology 12/20/19 Tyrel Amaya MD [address] [place] [address] [place] [address] Pulmonary Disease 02/17/20 Andrzej Garland MD [address] [place] [address] [place] [address] Ophthalmology 04/07/20 documented as of this encounter Additional Source Comments The information contained in this document represents components of the legal health record. It is not the complete legal health record.[facility]
--- OUTSIDE RECORDS SUMMARY | 2025-06-14 02:44 | XMS_ITS | Encounter Summary ---
Author Organization [facility] Address [address] [place] [phone] Phone Care Team Providers Care Track Dresser Name Role Phone Ted Pearl MD Primary Care Provider [phone] Sterling Ware MD Unavailable [phone] Tyrel Amaya MD Unavailable [phone] Andrzej Garland MD Unavailable [phone] Win Reyes PA-C Primary Care Provider [phone] Encounter Details Date Type Department Care Team (Late st Contact Info) Description 01/08/2021 Procedure Pass [facility] [address] [place], [place] [id number] Social History Tobacco Use Types Packs/Day Years [...] Description 09/11/2025 7:20 AM EST Office Visit [facility] Internal Medicine [address] [place], [place] [id number] Win Reyes PA-C [address] [place], [place] [id number] 12/10/2025 8:00 AM EDT Office Visit [facility] Rheumatology [address] [place] [address] Edie Pina MD [address] [facility], [address] [place] [address] [email or web address] documented as of this encounter Visit Diagnoses Not on filedocumented in this encounter Additional Health Concerns Infection Onset Date Last Indicated Resolved Time COVID-19 09/19/2023 09/19/2023 10/10/2023 1:21 AM EST CoV-Risk 11/07/2024 11/07/2024 11/18/2024 1:21 AM EDT Assessment Noted Time PHQ-2 Depression Total Score: 0 12/20/19 9:41 AM EDT documented as of this encounter Care Teams Track Dresser Relationship Specialty Start Date End Date Ted Pearl MD [address] [place] [address] [email or web address] PCP - General Internal Medicine 12/18/19 04/21/25 Win Reyes PA-C [address] [place] [address] [email or web address] PCP - General Physician Powdered Sugar Pulverizer Operator 04/22/25 Sterling Ware MD [address] [place] [address] [email or web address] Dermatology 12/20/19 Tyrel Amaya MD [address] [place] [address] [place] [address] Pulmonary Disease 02/17/20 Andrzej Garland MD [address] [place] [address] [place] [address] Ophthalmology 04/07/20 documented as of this encounter Additional Source Comments The information contained in this document represents components of the legal health record. It is not the complete legal health record.[facility]
--- OUTSIDE RECORDS SUMMARY | 2025-06-14 02:44 | XMS_ITS | Encounter Summary ---
Author Organization [facility] Address [address] [place] [phone] Phone Care Team Providers Care Director Speech Name Role Phone Sterling Ware MD Unavailable [phone] Tyrel Amaya MD Unavailable [phone] Andrzej Garland MD Unavailable [phone] Win Reyes PA-C Primary Care Provider [phone] Reason for Referral * MRI/CAT Scan - Closed Specialty Diagnoses / Procedures Referred By Contac t Referred To Contact Radiology Procedures Outside CT Chest Report Only [facility] Internal Medicine [address] [place] [address] Phone: tel: fax: Referral ID Status Reason Start Date Expiration Date Visits Re quested Visits Authorized [id number] Closed 05/23/2025 1 1 Encounter Details Date Type Department Care Team (Late st Contact Info) Description 05/23/2025 Orders Only [facility] Internal Medicine [address] [place] [address] Chanell Taylor MD [address] [place] [id number] Social History Tobacco Use Types Packs/Day [...] Description 09/11/2025 7:20 AM EST Office Visit [facility] Internal Medicine [address] [place] [address] Win Reyes PA-C [address] [place] [address] 12/10/2025 8:00 AM EDT Office Visit [facility] Rheumatology [address] [place] [address] Edie Pina MD [address] [place] [address], [address] [place] [address] [email or web address] documented as of this encounter Procedures Procedure Name Priority Date/Time Associated Diagnosis Comments OUTSIDE XR CHEST REPORT ONLY Routine 05/23/2025 10:[address] CHEST REPORT ONLY Routine 05/23/2025 10:54 AM EDT documented in this encounter Results * Outside XR??Chest Report Only (05/23/2025 10:59 AM EDT) Historical Provider MD TELLES XR CHEST Final Res ult * Outside CT??Chest Report Only (05/23/2025 10:54 AM EDT) Historical Provider MD TELLES CT CHEST Final Res ult documented in this encounter Visit Diagnoses Not on filedocumented in this encounter Additional Health Concerns Assessment Noted Time PHQ-2 Depression Total Score: 0 04/15/20 25 5:22 PM EDT documented as of this encounter Care Teams Director Speech Relationship Specialty Start Date End Date Win Reyes PA-C [address] [place] [address] [email or web address] PCP - General Physician Frickertron Checker 04/22/25 Sterling Ware MD Dermatology 12/20/19 Tryel Amaya MD [address] [place] [address] [place] [address] Pulmonary Disease 02/17/20 Andrzej Garland MD [address] [place] [address] [place] [address] Ophthalmology 04/07/20 documented as of this encounter Additional Source Comments The information contained in this document represents components of the legal health record. It is not the complete legal health record.[facility]
--- OUTSIDE RECORDS SUMMARY | 2025-06-14 02:44 | XMS_ITS | Clinical Summary ---
Author Organization [facility] Address [address] [place] [id number] Phone Care Team Providers Care Stove Tender Name Role Phone Sterling Ware MD Unavailable [phone] Tyrel Amaya MD Unavailable Andrzej Garland MD Unavailable Win Reyes PA-C Primary Care Provider [phone] Allergies Active Allergy Reactions Criticality Noted Date Comments Ibuprofen Swelling,Other (See Comments) High 12/27/2016 Other reaction(s): Itchy hands, throat closing Other reaction(s): tongue swelling Levofloxacin Other (See Comments) 11/19/2017 nightmares Lisinopril Cough 12/27/2016 Medications esomeprazole (NEXIUM) 40 MG capsule Take 40 mg by mouth nightly at bedtime. Active losartan (COZAAR) 100 MG tabletIndications :Essential hypertension TAKE 1 TABLET DAILY 90 tablet 3 4 Active albuterol 90 mcg/actuation inhaler Inhale 2 puffs into the lungs every 6 (six) hours as needed for shortness of breath/dyspne a. 18 g 3 5 Active atenolol (TENORMIN) 50 mg tabletIndications :Benign essential hypertension Take 1 tablet (50 mg total) by mouth every morning. 100 tablet 3 5 Active BREO ELLIPTA 200-25 mcg/dose inhaler Inhale 1 puff into the lungs daily. 5 Active atorvastatin (LIPITOR) 80 MG tabletIndications :Hyperlipidemia TAKE 1 TABLET BY MOUTH EVERY DAY 90 tablet 3 5 Active MULTIVITAMIN ORAL Take 1 capsule by mouth daily. Active Lactobacillus acidophilus (PROBIOTIC ORAL) Take 1 capsule by mouth daily. Active acetaminophen (TYLENOL) 325 mg tablet Take by mouth. NEEDED 5 Active aspirin-caffeine (ANNE BACK AND BODY) 500-32.5 mg Tab Take by mouth. Active hydroxychloroquin e (PLAQUENIL) 200 mg tabletIndications :Lupus erythematosus tumidus Take 1 tablet (200 mg total) by mouth 2 (two) times a day. 180 tablet 3 5 Active LAXATIVE, BISACODYL, 5 mg EC tablet Take 5-10 mg by mouth as needed. As needed 3 Discontin ued(No longer taking) hydroxychloroquin e (PLAQUENIL) 200 mg tabletIndications :Lupus erythematosus tumidus Take 1 tablet (200 mg total) by mouth 2 (two) times a day. 180 tablet 3 5 Discontin ued(Reord er) pyridoxine, vitamin B6, (B-6) 50 MG tablet Take 50 mg by mouth daily. 5 Discontin ued(No longer taking) aspirin 81 mg chewable tablet Take 81 mg by mouth daily. 5 Discontin ued(No longer taking) doxycycline hyclate (VIBRAMYCIN) 100 MG capsule Take 1 capsule by mouth 2 (two) times a day. 5 Discontin ued(No longer taking) doxycycline monohydrate (MONODOX) 100 MG capsule Take 100 mg by mouth 2 (two) times a day. Discontin ued(No longer taking) amoxicillin-clavu lanate (AUGMENTIN) 875-125 mg per tablet (To Go) Take 875 mg by mouth 2 (two) times a day. Take 1 tablet (875 mg of amoxicillin) by mouth twice daily for 7 days. Discontin ued(No longer taking) magnesium oxide (URO-MAG) 84.5 mg mag (140 mg) Cap Take 140 mg by mouth 2 (two) times a day with meals. 11/05/2 025 Discontin ued(No longer taking) Active Problems Problem Noted Date Diagnosed Date Prostate cancer screening 06/11/2025 Assessment & Plan (06/11/2025 8:06 AM EST): Obtain PSA Hypomagnesemia 05/29/2025 Assessment & Plan (05/29/2025 6:45 PM EDT): Patient noted to have a low magnesium level well admitted to the hospital. He received 2 g of magnesium IV. He was sent home with magnesium oxide however his insurance did not cover this medication he is did receive it [id number]. A repeat magnesium level will be obtained Routine general medical exam ination at a health care facility 04/22/2025 Assessment & Plan (06/11/2025 8:06 AM EST): Patient underwent labs prior to his appt which were discussed during his physical. Patient is UTD- colonoscopy back in 2023. Annual physical 1 year. NSTEMI (non-ST elevated myocardial infarction) 0 04/22/2025 Assessment & Plan (06/11/2025 8:06 AM EST): Patient noted to have a non-STEMI during one of his hospital stays for COPD/pneumonia. Patient underwent cardiac cath which according to the patient was noted to be negative. His symptoms were most likely in the setting of heart strain from pneumonia. Patient was seen by cardiology who felt that it was not a true ND. Patient was placed on atorvastatin 80 mg daily and aspirin 81 mg as well as atenolol. This regimen will be continued On statin therapy 01/10/2025 Assessment & Plan (06/12/2025 9:10 AM EST): Monitor for muscle tenderness, swelling and weakness Assessment & Plan (01/10/2025 8:58 AM EDT): Monitor for muscle tenderness, swelling and weakness Primary osteoarthritis of both knees 05/06/2024 Assessment & Plan (06/12/2025 9:41 AM EST): Continue joint protection, energy conservation. Gentle, regular [...] need to request another intra-articular cortisone injection. Assessment & Plan (03/17/2025 8:48 AM EDT): Procedure: After an informed oral consent, under sterile conditions using Ethyl chloride spray for local anesthesia I have injected 1st of 3 [id number] mg Synvisc vial into Right knee from [...] AM EDT): Continue Creon as prescribed by dope firer. Follow-up as scheduled. Assessment & Plan (01/05/2024 11:05 AM EDT): Continue Creon as prescribed by dope firer. Get colonoscopy as scheduled on 10/11/2022 to make sure that last year tubulovillous polyp has not returned. Assessment & Plan (12/14/2022 9:04 AM EDT): Continue Creon as prescribed by dope firer. Get colonoscopy as scheduled on 10/11/2022 to make sure that last year tubulovillous polyp has not returned. Assessment & Plan (08/13/2022 5:10 PM EST): Continue Creon as prescribed by dope firer. Get colonoscopy as scheduled on 10/11/2022 to [...] use of Plaquenil 12/06/2021 Assessment & Plan (06/12/2025 9:29 AM EST): Take carefully as prescribed. Arrange for ophthalmologic checkup within 12 months since starting Plaquenil again and follow instructions flow candy waffle assembler. Daily sun protection all year round while on Plaquenil. Assessment & Plan (01/10/2025 8:36 AM EDT): Take carefully as prescribed. Arrange for ophthalmologic checkup within 12 months since starting Plaquenil again and follow instructions flow candy waffle assembler. Daily sun protection all year round while on Plaquenil. Assessment & Plan (09/06/2024 9:03 AM EST): Take carefully as prescribed. Arrange for ophthalmologic checkup within 12 months since starting Plaquenil again and follow instructions flow candy waffle assembler. Daily sun protection all year round while on Plaquenil. Assessment & Plan (05/06/2024 10:49 AM EDT): Take carefully as prescribed. Arrange for ophthalmologic checkup within 12 months since starting Plaquenil again and follow instructions flow candy waffle assembler. Daily sun protection all year round while on Plaquenil. Assessment & Plan (01/05/2024 11:05 AM EDT): Take carefully as prescribed. Arrange for ophthalmologic checkup within 12 months since starting Plaquenil again and follow instructions flow candy waffle assembler. Daily sun protection all year round while on Plaquenil. Assessment & Plan (12/14/2022 9:05 AM EDT): Take carefully as prescribed. Arrange for ophthalmologic checkup within 12 months since starting Plaquenil again and follow instructions flow candy waffle assembler. Daily sun protection all year round while on Plaquenil. Assessment & Plan (08/11/2022 8:11 AM EST): Take carefully as prescribed. Arrange for ophthalmologic checkup within 12 months since starting Plaquenil again and follow instructions flow candy waffle assembler. Daily sun protection all year round while on Plaquenil. Assessment & Plan (04/13/2022 10:02 AM EDT): Take carefully as prescribed. Arrange for ophthalmologic checkup within 12 months since starting Plaquenil again and follow instructions flow candy waffle assembler. Daily sun protection all year round while on Plaquenil. Assessment & Plan (12/19/2021 5:12 PM EDT): Take carefully as prescribed. Arrange for ophthalmologic checkup within 12 months since starting Plaquenil again and follow instructions flow candy waffle assembler. Daily sun protection all year round while on Plaquenil. Lupus erythematosus tumidus 09/09/2021 Assessment & Plan (06/12/2025 9:09 AM EST): I have reviewed with patient [...] may benefit from combined dermatology/rheumatology consult at [facility] with Dr. Luly Fisher Assessment & Plan (06/11/2025 8:06 AM EST): Feeling good on Hydroxychloroquine 200 mg twice a day. Follows up with database consultant every six months and sees an eye doctor once a year due to potential side effects of Hydroxychloroquine. - Should continue current medication regimen and follow up with specialists as scheduled. Assessment & Plan (03/31/2025 3:05 PM EDT): [...] may benefit from combined dermatology/rheumatology consult at [facility] with Dr. Luly Fisher Assessment & Plan [...] may benefit from combined dermatology/rheumatology consult at [facility] with Dr. Luly Fisher Assessment & Plan [...] may benefit from combined dermatology/rheumatology consult at [facility] with Dr. Luly Fisher Assessment & Plan [...] may benefit from combined dermatology/rheumatology consult at [facility] with Dr. Luly Fisher Assessment & Plan [...] may benefit from combined dermatology/rheumatology consult at [facility] with Dr. Luly Fisher Assessment & Plan [...] may benefit from combined dermatology/rheumatology consult at [facility] with Dr. Luly Fisher Assessment & Plan [...] may benefit from combined dermatology/rheumatology consult at [facility] with Dr. Luly Fisher Assessment & Plan [...] may benefit from combined dermatology/rheumatology consult at [facility] with Dr. Luly Fisher Assessment & Plan [...] may benefit from combined dermatology/rheumatology consult at [facility] with Dr. Luly Fisher Assessment & Plan [...] may benefit from combined dermatology/rheumatology consult at [facility] with Dr. Luly Fisher if above regimen [...] may benefit from combined dermatology/rheumatology consult at [facility] with Dr. Luly Fisher Assessment & Plan [...] may benefit from combined dermatology/rheumatology consult at [facility] with Dr. Luly Fisher Assessment & Plan [...] may benefit from combined dermatology/rheumatology consult at [facility] with Dr. Luly Fisher Assessment & Plan [...] may benefit from combined dermatology/rheumatology consult at [facility] with Dr. Luly Fisher Assessment & Plan [...] may benefit from combined dermatology/rheumatology consult at [facility] with Dr. Luly Fisher Vitamin D insufficiency 09/09/2021 Assessment & Plan [...] phenomenon without gangrene 09/09/2021 Assessment & Plan (06/12/2025 9:09 AM EST): Keep warm, dress in layers. Optimize stress management strategies. Avoid vasoconstrictors in OTC products for cold/flu and sinus. Assessment & Plan (05/06/2024 10:49 AM EDT): [...] in OTC products for cold/flu and sinus. Anemia 12/10/2017 Gastroesophageal reflux disease 12/10/2017 Assessment & Plan (06/12/2025 9:09 AM EST): Carefully continue avoid late, large, spicy meals. Keep headboard elevated at 45 angle for nighttime. Carefully continue Nexium nightly Assessment & Plan (06/11/2025 8:06 AM EST): No current symptoms as long as Nexium (generic) is taken. His last EGD was 2 years ago. He stated at that time it looked fine. - Scheduled for a follow-up in five years; should continue current medication regimen and follow up with dope firer as scheduled. Assessment & Plan (01/10/2025 8:36 AM EDT): [...] follow closely with prescribing physician. Hyperlipidemia 12/10/2017 Assessment & Plan (06/11/2025 8:06 AM EST): Patient with a history of hyperlipidemia as well as a non-STEMI in the past. His last lipid panel was back in May 2025 which was within normal limits. -Continue Lipitor 80 mg daily Chronic obstructive pulmonary disease 12/08/2017 Assessment & Plan (06/11/2025 8:06 AM EST): Patient with a history of COPD who follows with pulmonary. Patient is on Breo 200/25 mcg inhalation daily and albuterol MDI as needed. He states that this has been managing his symptoms. -Follow-up with pulmonary as scheduled -Continue Breo 200 mg / 25 mcg inhalation daily and albuterol MDI as needed - Should rinse mouth after using the inhaler to prevent oral thrush. Assessment & Plan (11/07/2024 8:45 AM EDT): [...] in December 2024. Benign essential hypertension 12/08/2017 Assessment & Plan (06/11/2025 8:06 AM EST): Patient with a history of hypertension who is on losartan 100 mg daily and atenolol 50 mg daily. This regimen will be continued Resolved Problems Problem Noted Date Diagnosed Date Resolved Date Other pneumonia, unspecified organism 04/22/2025 06/06/2025 Assessment & Plan (05/29/2025 6:44 PM EDT): Patient recently admitted at [facility] from 05/23/2025 through 05/25/2025 for pneumonia. Patient was found to have left-sided multifocal pneumonia on both chest x-ray and CT of the chest. Patient was given IV antibiotics that which included ceftriaxone, azithromycin, and Zosyn. -He was discharged home on doxycycline 100 mg p.o. twice daily and Augmentin 875 mg p.o. twice daily for 7 days. He has 4 more days to complete. I have advised the patient to continue these current medications. -A repeat CT of the chest has been placed for 4 weeks to ensure that there is complete resolution of the pneumonia. 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 -Also placed lab orders to include an IgA, IgG and IgE for further evaluation as the patient continues to have episodes of pneumonia and illnesses. longterm current use of aspirin 01/10/2025 06/06/2025 Assessment & Plan (03/31/2025 3:05 PM EDT): [...] cuts. Monitor for excessive bruising and bleeding. Alcohol use disorder 01/10/2025 025 Assessment & [...] headboard elevated at 45 angle for nighttime. History of pneumonia 09/09/2021 025 Assessment & Plan (03/17/2025 8:59 AM EDT): [...] increased risk for lung diseases-close monitoring necessary. Chronic fatigue 09/09/2021 04/22/2025 Assessment & Plan [...] rest, continue balanced diet and good hydration. Urticaria 12/10/2017 06/06/2025 Assessment & Plan (12/10/2017 9:43 PM EDT): [...] lyme screening (see TE) as denies exposures. History of smoking 12/10/2017 Assessment & Plan (09/09/2021 8:32 PM EST): Over [id number] history of smoking-quit in 2016-great risk factor for multiple lungs diseases--close monitoring necessary. Other pneumonia, unspecified organism 10/16/2017 12/25/2017 Encounters Date Type Department Care Team Description 06/12/2025 9:00 AM EST Office Visit [facility] Rheumatology [address] [place] [address] Edie Pina MD Lupus erythematosus tumidus (Primary Dx); Primary osteoarthritis of both knees; Raynaud's phenomenon without gangrene; Gastroesophageal reflux disease with esophagitis without hemorrhage; Long-term use of Plaquenil; On statin therapy 06/11/2025 7:20 AM EST Office Visit [facility] Internal Medicine [address] [place] [address] Win Reyes PA-C Routine general medical examination at a health care facility (Primary Dx); NSTEMI (non-ST elevated myocardial infarction); Lupus erythematosus tumidus; Gastroesophageal reflux disease with esophagitis without hemorrhage; Pure hypercholesterolemia; Benign essential hypertension; Chronic obstructive pulmonary disease, unspecified COPD type; Prostate cancer screening 05/29/2025 9:40 AM EDT Office Visit [facility] [address] [facility] [place] [address] Win Reyes PA-C Hypomagnesemia (Primary Dx); Other pneumonia, unspecified organism 05/29/2025 8:22 AM EDT - 05/29/2025 11:59 PM EDT Hospital Encounter [facility] [place] [address] [facility] [place] [address] Win Reyes PA-C Discharge Disposition: Home or Self Care 05/26/2025 Orders Only [facility] Internal [facility] [address] [facility] [place] [address] ProviderChanell MD 05/26/2025 Documentation [facility] Internal [facility] [address] [facility] [place] [address] Win Reyes PA-C 05/26/2025 Telephone [facility] Internal [facility] [address] [facility] [place] [address] Constance Scherer, RN TCM Visit 05/23/2025 Orders Only [facility] Internal [facility] [address] [facility] [place] [address] ProviderChanell MD 05/05/2025 Telephone [facility] Internal Medicine [address] [facility] [place] [address] Constance Scherer, service plumber Refill 05/05/2025 Refill [facility] [address] [facility] [place] [address] Win Reyes PA-C Medication Refill 04/22/2025 9:00 AM EDT Office Visit [facility] [address] [facility] [place] [address] Win Reyes PA-C Chronic obstructive pulmonary disease, unspecified COPD type (Primary Dx); Routine general medical examination at a health care facility; Other pneumonia, unspecified organism; Benign essential hypertension; Pure hypercholesterolemia; Gastroesophageal reflux disease with esophagitis without hemorrhage; Lupus erythematosus tumidus; NSTEMI (non-ST elevated myocardial infarction) 03/31/2025 2:30 PM EDT Office Visit [facility] Rheumatology [address] [place] [address] Edie Pina MD Arthritis of knee, right (Primary Dx); longterm current use of aspirin; Lupus erythematosus tumidus 03/24/2025 10:00 AM EDT Office Visit [facility] Rheumatology [address] [place] [address] [place] [address] Edie Pina MD Arthritis of knee, right (Primary Dx); Lupus erythematosus tumidus; longterm current use of aspirin 03/17/2025 8:30 AM EDT Office Visit [facility] Rhe[facility]ology [address] [place] [address] Edie Pina MD Primary osteoarthritis of both knees (Primary Dx); Lupus erythematosus tumidus; History of pneumonia from Last 3 Months Immunizations Immunization Administration [...] Pulse 57 06/12/2025 8:55 AM EST Temperature 36.5 C (97.7 F) 05/29/2025 9:30 AM EDT Respiratory Rate 21 06/11/2025 7:14 AM EST Oxygen Saturation 99% 06/12/2025 8:55 AM EST Inhaled Oxygen Concentration - - Weight 75.8 kg (167 lb) 06/12/2025 8:55 AM EST Height 169.3 cm (5' 6.65 ) 06/11/2025 7:14 AM ES T Body Mass Index 26.43 06/11/2025 7:14 AM EST Plan of Treatment Upcoming Encounters Date Type Department Care Team (Late st Contact Info) Description 09/11/2025 7:20 AM EST Office Visit [facility] Internal Medicine [address] [place] [address] Win Reyes PA-C [address] [place] [address] [email or web address] 12/10/2025 8:00 AM EDT Office Visit [facility] Rheumatology [address] [place] [address] Edie Pina MD [address] [place] [address], [address] [place] [address] [email or web address] Health Maintenance Due Date Last Done Comments COLOGUARD 1999 FOBT 1999 SIGMOIDOSCOPY 1999 VIRTUAL COLONOSCOPY 1999 FIT TEST 05/26/2022 05/26/2021 INFLUENZA VACCINE (#1) 2025 , 05/02/2023, 05/06/2022, Additional history exists COVID-19 VACCINE ( season) 2025 04/25/2024, 05/02/2023, 05/06/2022, Additional history exists BLOOD PRESSURE 12/10/2025 06/12/2025 LUNG CANCER SCREENING (LDCT Only) 05/29/2026 05/29/2025, 01/24/2025, 08/24/2022, Additional history exists DEPRESSION SCREENING 06/04/2026 06/04/2025 CREATININE LEVEL 06/12/2026 06/12/2025, , 05/23/2025, Additional history exists POTASSIUM LEVEL 06/12/2026 06/12/2025, 05/08, 05/23/2025, Additional history exists LIPID PANEL 05/29/2030 05/29/2025, 01/06, 01/09/2024, Additional history exists Adult Td,Tdap Booster 09/16/2031 09/16/2021, 011 COLONOSCOPY 02/18/2034 02/19/2024, 03/02/2023, 10/11/2022, Additional history exists COLORECTAL CANCER SCREENING 02/18/2034 PNEUMOCOCCAL VACCINES (50+ years) Completed 02/18/2021, 12/20/2019, 10/09/2012 ABDOMINAL AORTIC ANEURYSM (AAA) SCREENING Completed 06/01/2021 HEPATITIS C SCREENING Completed 09/15/2021, 022 ZOSTER VACCINES Completed 11/15/2021, 09/07, 12/27/2016 RSV VACCINE Completed 06/14/2023 HEPATITIS A VACCINES Aged Out No long er eligible based on patient's age to complete this topic HIB VACCINES Aged Out No longer eligi ble based on patient's age to complete this topic IPV VACCINES Aged Out No longer eligi ble based on patient's age to complete this topic MENINGOCOCCAL VACCINES (ACWY) Aged Out No longer eligible based on patient's age to complete this topic MENINGOCOCCAL VACCINES (B) Aged Out N o longer eligible based on patient's age to complete this topic Medical Devices Not on file Procedures Procedure Name Priority Date/Time Associated Diagnosis Comments CBC AND DIFFERENTIAL Routine 06/12/2025 11:49 AM EST Lupus erythematosus tumidus Long-term use of Plaquenil PSA DIAGNOSTIC (MONITORING) Routine 06/12/2025 11:49 AM EST Prostate cancer screening MAGNESIUM Routine 06/12/2025 11:49 AM EST Hypomagnesemia CREATINE KINASE (CK) Routine 06/12/2025 11:49 AM EST Lupus erythematosus tumidus Long-term use of Plaquenil CBC AND DIFFERENTIAL Routine 06/12/2025 11:49 AM EST Lupus erythematosus tumidus Long-term use of Plaquenil SEDIMENTATION RATE (ESR) Routine 06/12/2025 11:49 AM EST Lupus erythematosus tumidus Long-term use of Plaquenil C-REACTIVE PROTEIN (CRP) Routine 06/12/2025 11:49 AM EST Lupus erythematosus tumidus Long-term use of Plaquenil COMPREHENSIVE METABOLIC PANEL (CMP) Routine 06/12/2025 11:49 AM EST Lupus erythematosus tumidus Long-term use of Plaquenil CT CHEST Routine 05/29/2025 10:39 AM EDT Other pneumonia, unspecified organism DOUBLE STRANDED DNA ANTIBODIES Routine 05/29/2025 8:22 AM EDT Lupus erythematosus tumidus Long-term use of Plaquenil CREATINE KINASE (CK) Routine 05/29/2025 8:22 AM EDT Lupus erythematosus tumidus Long-term use of Plaquenil COMPLEMENT C4 Routine 05/29/2025 8:22 AM EDT Lupus erythematosus tumidus Long-term use of Plaquenil COMPLEMENT C3 Routine 05/29/2025 8:22 AM EDT Lupus erythematosus tumidus Long-term use of Plaquenil CBC AND DIFFERENTIAL Routine 05/29/2025 8:22 AM EDT Lupus erythematosus tumidus Long-term use of Plaquenil SEDIMENTATION RATE (ESR) Routine 05/29/2025 8:22 AM EDT Lupus erythematosus tumidus Long-term use of Plaquenil C-REACTIVE PROTEIN (CRP) Routine 05/29/2025 8:22 AM EDT Lupus erythematosus tumidus Long-term use of Plaquenil LIPID PANEL Routine 05/29/2025 8:22 AM EDT Routine general medical examination at a [facility] care facility TSH WITH REFLEX Routine 05/29/2025 8:22 AM EDT Routine general medical examination at a [facility] care facility GLUCOSE, FASTING Routine 05/29/2025 8:22 AM EDT Routine general medical examination at [facility] facility COMPREHENSIVE METABOLIC PANEL (CMP) Routine 05/29/2025 8:22 AM EDT Routine general medical examination at a [facility] care facility OUTSIDE IMAGING Routine 05/26/2025 5:11 PM EDT OUTSIDE XR CHEST REPORT ONLY Routine 05/23/2025 10:[address] CHEST REPORT ONLY Routine 05/23/2025 10:54 AM EDT OUTSIDE POTASSIUM LEVEL Routine 05/23/2025 OUTSIDE ALT LEVEL Routine 05/23/2025 OUTSIDE SERUM CREATININE LEVEL Routine 05/23/2025 HM COLONOSCOPY FOR RESULT ENTRY ONLY Routine [...] Recently Relevant to Health Maintenance Results * (ABNORMAL) Comprehensive Metabolic Panel (CMP) (06/12/2025 11:49 AM EST) Only the most recent of2 resultswithin the time period is included. Sodium 141 136 - 145 mmol/L 06/12/2025 9:02 PM [facility] Potassium 4.1 3.4 - 5.1 mmol/L 06/12/2025 9:02 PM [facility] Chloride 103 98 - 107 mmol/L 06/12/2025 9:02 PM [facility] CO2 25 20 - 31 mmol/L 06/12/2025 9:02 PM [facility] Anion Gap 13 3 - 17 mmol/L 06/12/2025 9:02 PM [facility] BUN 9 6 - 23 mg/dL 06/12/2025 9:02 PM [facility] [facility] Creatinine 0.90 0.60 - 1.30 mg/dL 06/12/2025 9:02 PM [facility] eGFR 91 >59 mL/min/1.7 3m2 06/12/2025 9:02 PM [facility] Comment:Estimated glomerular filtration rate calculated using the CKD-EPI refit equation. Glucose 156(H) 70 - 99 mg/dL 06/12/2025 9:02 PM [facility] Calcium 9.6 8.5 - 10.5 mg/dL 06/12/2025 9:02 PM [facility] AST 28 <40 U/L 06/12/2025 9:02 PM [facility] ALT 23 <50 U/L 06/12/2025 9:02 PM [facility] Alkaline Phosphatase 91 40 - 130 U/L 06/12/2025 9:02 PM [facility] Bilirubin, Total 0.9 0.0 - 1.2 mg/dL 06/12/2025 9:02 PM [facility] Total Protein 6.5 6.4 - 8.3 g/dL 06/12/2025 9:02 PM [facility] Albumin 4.0 3.5 - 5.2 g/dL 06/12/2025 9:02 PM [facility] Globulin 2.5 1.9 - 4.1 g/dL 06/12/2025 9:02 PM [facility] Blood 06/12/2025 11:4 9 AM EST 06/12/2025 11:49 AM EST us Edie Pina MD LAB BLOOD BKR ORDERABLES Final Result Performing Organization Address [facility] Co de Phone Number [address] [address] * Prostate Specific Antigen (PSA), Monitoring (06/12/2025 11:49 AM EST) [facility] PSA Monitoring 1.60 ng/mL 06/12/2025 9:07 PM [facility] Comment:Post radical prostat ectomy results should be <0.1 ng/mL. Post therapy for other types of treatment should be <1.0 ng/mL. Blood (Blood) Venipuncture / Unknown 06/12/2025 11:49 AM EST 06/12/2025 11:49 AM EST Narrative [facility] - 06/12/2025 9:07 PM EST Test performed by Efrain electrochemiluminescent immunoassay (ECLIA). Results obtained by assays using different manufacturers or methods may not be comparable and cannot be used interchangeably for patient monitoring. us Win Reyes PA-C LAB BLOOD BKR ORDERABLES Joi l Result Performing Organization Address City/[facility]/ZIP Co de Phone Number [address] [address] * (ABNORMAL) CBC and Differential (06/12/2025 11:49 AM EST) WBC 9.09 4.00 - 11.00 K/uL 06/12/2025 8:45 PM [facility] RBC 3.98(L) 4.50 - 5.90 M/uL 06/12/2025 8:45 PM [facility] Hemoglobin 12.1(L) 13.5 - 17.5 g/dL 06/12/2025 8:45 PM [facility] Hematocrit 37.4(L) 41.0 - 53.0 % 06/12/2025 8:45 PM [facility] MCV 94.0 80.0 - 100.0 fL 06/12/2025 8:45 PM [facility] MCH 30.4 27.0 - 31.0 pg 06/12/2025 8:45 PM [facility] MCHC 32.4 32.0 - 36.0 g/dL 06/12/2025 8:45 PM [facility] MPV 9.2 8.4 - 12.0 fL 06/12/2025 8:45 PM [facility] RDW-CV 13.8 11.5 - 14.5 % 06/12/2025 8:45 PM [facility] PLT 278 150 - 450 K/uL 06/12/2025 8:45 PM [facility] Neutrophils 71.6 % 06/12/2025 8:45 PM [facility] Lymphocytes 18.2 % 06/12/2025 8:45 PM [facility] Monocytes 7.9 % 06/12/2025 8:45 PM [facility] Eosinophils 1.0 % 06/12/2025 8:45 PM [facility] Basophils 1.1 % 06/12/2025 8:45 PM [facility] Imm Grans 0.2 % 06/12/2025 8:45 PM [facility] NRBC 0.0 <=0.0 /100 WBCs 06/12/2025 8:45 PM [facility] Absolute Neutrophils 6.51 1.92 - 7.60 K/uL 06/12/2025 8:45 PM [facility] Absolute Lymphocytes 1.65 0.72 - 4.10 K/uL 06/12/2025 8:45 PM [facility] Absolute Monocytes 0.72 0.16 - 1.10 K/uL 06/12/2025 8:45 PM [facility] Absolute Eosinophils 0.09 0.00 - 0.50 K/uL 06/12/2025 8:45 PM [facility] Absolute Basophils 0.10 0.00 - 0.15 K/uL 06/12/2025 8:45 PM [facility] Absolute Imm Grans 0.02 0.00 - 0.09 K/uL 06/12/2025 8:45 PM [facility] Absolute NRBC 0.00 <=0.00 K cells/uL 06/12/2025 8:45 PM [facility] Absolute Neutrophils 6.51 1.92 - 7.60 K/uL 06/12/2025 8:45 PM [facility] Comment:Automated cell count . Manual ANC may differ if performed. Diff Type Auto 06/12/2025 8:45 PM [facility] Blood 06/12/2025 11:4 9 AM EST 06/12/2025 11:49 AM EST us Edie Pina MD LAB BLOOD BKR ORDERABLES Final Result [address] [address] * Erythrocyte Sedimentation Rate (ESR) (06/12/2025 11:49 AM EST) Only the most recent of2 resultswithin the time period is included. ESR 11 0 - 20 mm/h 06/12/2025 9:18 PM [facility] Blood 06/12/2025 11:4 9 AM EST 06/12/2025 11:49 AM EST Narrative [facility] - 06/12/2025 9:18 PM EST Specimen was processed >6 hours from time of collection. Results may be falsely decreased. Recommend repeat with fresh sample, particularly for borderline results. us Edie Pina MD LAB BLOOD BKR ORDERABLES Final Result Performing Organization Address [facility] Co de Phone Number [address] [address] * C-Reactive Protein (CRP) (06/12/2025 11:49 AM EST) Only the most recent of2 resultswithin the time period is included. C Reactive Protein 6.5 <10.0 mg/L 06/12/2025 9:02 PM [facility] Comment:NOTE: This reference range is for the evaluation of inflammation. Order CRP, High Sensitivity for cardiac risk status evaluation. Blood 06/12/2025 11:4 9 AM EST 06/12/2025 11:49 AM EST us Edie Pina MD LAB BLOOD BKR ORDERABLES Final Result Performing Organization Address [facility] Co de Phone Number [address] [address] * Magnesium (06/12/2025 11:49 AM EST) [facility] Magnesium 1.7 1.7 - 2.6 mg/dL 06/12/2025 9:02 PM [facility] Blood 06/12/2025 11:4 9 AM EST 06/12/2025 11:49 AM EST us Win Reyes PA-C LAB BLOOD BKR ORDERABLES Joi l Result Performing Organization Address [facility] Co de Phone Number [address] [address] * Creatine Kinase (CK) (06/12/2025 11:49 AM EST) Only the most recent of2 resultswithin the time period is included. Creatine Kinase (CK) 56 39 - 308 U/L 06/12/2025 9:02 PM [facility] Blood 06/12/2025 11:4 9 AM EST 06/12/2025 11:49 AM EST us Edie Pina MD LAB BLOOD BKR ORDERABLES Final Result Performing Organization Address [facility]/ZIP Co de Phone Number [address] [address] * Glucose, fasting (05/29/2025 8:22 AM EDT) FASTING GLUCOSE 78 70 - 95 mg/dL [facility] Blood 05/29/2025 8:22 AM EDT 05/29/2025 8:28 AM EDT us Win Reyes PA-C LAB BLOOD ORDERABLES Final Re sult Performing Organization Address [facility] Co de Phone Number [address] [address] * TSH with reflex (05/29/2025 8:22 AM EDT) TSH 1.37 0.27 - 4.20 uIU/mL [facility] Blood 05/29/2025 8:22 AM EDT 05/29/2025 8:28 AM EDT Win Reyes PA-C LAB BLOOD BKR ORDERABLES Joi l Result Performing Organization Address [facility] Co de Phone Number [address] [address] * Double stranded DNA antibodies (05/29/2025 8:22 AM EDT) ANTI DSDNA ANTIBODY Negative at 1:10 [facility] Comment: Edie Bradford M.D., Director Clinical Immunology Laboratory [id number] Normal: Negative at 1:10 To interpret a negative test for anti-[place] or double stranded DNA antibodies in a patient suspected of having systemic lupus erythematosus, the following limitation should be noted. Anti-double stranded DNA antibodies are usually detected in SLE patients with active disease, especially in those with active renal disease. Anti-DNA antibodies are usually not detected in SLE patients with spontaneous or drug-induced remissions. Blood 05/29/2025 8:22 AM EDT 05/29/2025 8:27 AM EDT us Edie Pina MD LAB BLOOD BKR ORDERABLES Final Result [address] [address] * (ABNORMAL) CBC and differential (05/29/2025 8:22 AM EDT) WBC 9.95 4.00 - 11.00 K/uL [facility] RBC 4.49(L) 4.50 - 5.90 M/uL [facility] HGB 13.6 13.5 - 17.5 g/dL [facility] HCT 42.1 41.0 - 53.0 % [facility] PLT 336 150 - 450 K/uL [facility] MCV 93.8 80.0 - 100.0 fL [facility] MCH 30.3 27.0 - 31.0 pg [facility] MCHC 32.3 32.0 - 36.0 g/dL [facility] RDW 13.0 11.5 - 14.5 % [facility] MPV 9.3 8.4 - 12.0 fL [facility] NRBC 0.00 0.00 /100 WBCs [facility] ABSOLUTE NRBC 0.00 0.00 K/uL [facility] DIFF METHOD Manual [facility] TOTAL CELLS COUNTED 100 [facility] NEUTS 72.0 48.0 - 76.0 % [facility] LYMPHS 20.0 18.0 - 41.0 % [facility] MONOS 6.0 4.0 - 11.0 % [facility] EOS 1.0 0.0 - 5.0 % [facility] MYELOS 1.0(H) 0 % [facility] ABSOLUTE NEUTS 7.16 1.92 - 7.60 K/uL [facility] ABSOLUTE LYMPHS 1.99 0.72 - 4.10 K/uL [facility] ABSOLUTE MONOS 0.60 0.16 - 1.10 K/uL [facility] ABSOLUTE EOS 0.10 0.00 - 0.50 K/uL [facility] ABSOLUTE MYELOS 0.10 K/uL [facility] ALAN CELLS PRESENT(A) None [facility] Blood 05/29/2025 8:22 AM EDT 05/29/2025 8:28 AM EDT us Edie Pina MD LAB BLOOD BKR ORDERABLES Final Result [facility] [address] [place] [address] * Complement C3 (05/29/2025 8:22 AM EDT) C3 152 81 - 157 mg/dl [facility] Blood 05/29/2025 8:22 AM EDT 05/29/2025 8:27 AM EDT us Edie Pina MD LAB BLOOD BKR ORDERABLES Final Result [address] [address] * (ABNORMAL) Complement C4 (05/29/2025 8:22 AM EDT) C4 51(H) 12 - 39 mg/dL [facility] Blood 05/29/2025 8:22 AM EDT 05/29/2025 8:27 AM EDT Edie Pina MD LAB BLOOD BKR ORDERABLES Final Result [address] [address] * (ABNORMAL) Lipid panel (05/29/2025 8:22 AM EDT) HDL 54 mg/dL [facility] Comment: Interpretation <40 mg/dL: Low HDL cholesterol (major risk factor for CHD) Greater than or equal to 60 mg/dL: High HDL cholesterol ( negative risk factor for CHD) HDL - cholesterol is affected by a number of factors, e.g. smoking, excerise, hormones, sex and age. CHOLESTEROL 127 0 - 240 mg/dL [facility] TRIGLYCERIDES 67 30 - 160 mg/dL [facility] LDL 60 50 - 129 mg/dL [facility] Comment: LDL levels in terms of risk for coronary heart disease: <100 mg/dL: Optimal 100-129 mg/dL: Near or above optimal 130-159 mg/dL: Borderline high 160-189 mg/dL: High >190 mg/dL: Very High CARDIAC RISK RATIO 2.4(L) 3.4 - 5.0 C [facility] Blood 05/29/2025 8:22 AM EDT 05/29/2025 8:28 AM EDT Result [facility] Win Reyes PA-C LAB BLOOD BKR ORDERABLES Joi l Result Performing Organization Address City/State/[facility] Co de Phone Number [address] [address] * Outside Imaging Report Only (05/26/2025 5:11 PM EDT) Historical Provider IMG XR CHEST Final Res ult * Outside XR??Chest Report Only (05/23/2025 10:59 AM EDT) Historical Provider IMG XR CHEST Final Res ult * Outside CT??Chest Report Only (05/23/2025 10:54 AM EDT) Historical Provider IMG CT CHEST Final Res ult * Outside Potassium Level (05/23/2025) Potassium level - External 3.6 3.4 - 5.0 mmol/L Result [facility] Historical Provider LAB BLOOD ORDERABLES Joi l Result * Outside Serum Creatinine Level (05/23/2025) Creatinine, serum - External 1.01 0.8 - 1.3 mg/dL Historical Provider LAB BLOOD ORDERABLES Joi l Result * Outside ALT Level (05/23/2025) Pathologist [facility] ALT - External 27 5 - 30 U/L Historical Provider LAB BLOOD ORDERABLES Joi l Result * COLONOSCOPY FOR RESULT ENTRY ONLY (02/19/2024) [facility]ologist [facility] Colonoscopy 3 yr recall Historical Provider HEALTH [...] NON-REACTIV E NON-REACTI VE [facility] Blood 09/15/2021 7:26 AM EST 09/15/2021 7:39 AM EST Edie Pina MD LAB BLOOD BKR ORDERABLES Final Result [address] [address] * US Abdominal Aortic Screening (06/01/2021 7:48 [...] Occult Positive(A ) Negative [facility] Stool (Stool) 05/26/2021 7:2 3 PM EDT 05/26/2021 7:26 PM EDT Ted Pearl MD LAB BODY FLUIDS AND STOOL ORD ERABLES Final Result [facility] [address] [place] [address] from Last 3 Months or Most Recently Relevant to Health Maintenance Insurance [place] MEDICARE PPO BLUE REPLACEMENT [facility] MEDICARE PPO BLUE REPLACEMENT [address] [address] MEDICARE PPO BLUE REPLACEMENT [facility] MEDICARE PPO BLUE REPLACEMENT [place] [place] [address] MEDICARE PPO BLUE REPLACEMENT [place] [address] MEDICARE PPO BLUE REPLACEMENT [facility] MEDICARE PPO BLUE REPLACEMENT Advance Directives For more information, please contact: [phone] (9AM - 5PM [facility], Monday-Monday) * Full Code (Latest Code Status on File) Date Activated Date Inactivated Comments 06/11/2025 7:54 AM Question Answer Comments Code Status Confirmed With: Patient Code Status Communicated To: PCP Care Teams Stove Tender Relationship Specialty Start Date End Date Win Reyes PA-C [address] [place] [address] [email or web address] PCP - General Physician Enterprise Mobility Architect 04/22/25 Sterling Ware MD Dermatology 12/20/19 Tyrel Amaya MD [address] [place] [address] [place] [address] Pulmonary Disease 02/17/20 Andrzej Garland MD [address] [place] [address] [place] [address] Ophthalmology 04/07/20 Additional Source Comments The information contained in this document represents components of the legal health record. It is not the complete legal health record.[facility]
--- OUTSIDE RECORDS SUMMARY | 2025-06-14 02:44 | XMS_ITS | Encounter Summary ---
Author Organization [facility] Address [address] [address] Phone Care Team Providers Care Director Of Academic Support Name Role Phone Ted Pearl MD Primary Care Provider [phone] Sterling Ware MD Unavailable [phone] Tyrel Amaya MD Unavailable [phone] Andrzej Garland MD Unavailable [phone] Win Reyes PA-C Primary Care Provider [phone] Encounter Details Date Type Department Care Team (Latest Contact Info) Description 01/30/2025 Ancillary Orders [facility] Internal Medicine [address] [place], [place] [phone] Win Reyes PA-C [address] [place], [place] [phone] [email or web address] Fever, [...] Description 09/11/2025 7:20 AM EST Office Visit [facility] Internal Medicine [address] [place] [address] Win Reyes PA-C [address] [place], [place] [phone] [email or web address] 12/10/2025 8:00 AM EDT Office Visit [facility] Rheumatology [address] [place] [address] Edie Pina MD [address] [facility], [address] [place] [address] [email or web address] documented as of this encounter Visit Diagnoses Diagnosis Fever, unspecified- Primary documented in this encounter Additional Health Concerns Assessment Noted Time PHQ-2 Depression Total Score: 0 12/14/19 25 2:46 PM EDT documented as of this encounter Care Teams Director Of Academic Support Relationship Specialty Start Date End Date Ted Pearl MD [address] [place] [address] [email or web address] PCP - General Internal Medicine 12/18/19 04/21/25 Win Reyes PA-C [address] [place] [address] PCP - General Physician Exhibitions Curator 04/22/25 Sterling Ware MD [address] [place] [address] [email or web address] Dermatology 12/20/19 Tyrel Amaya MD [address] [place] [address] [place] [address] Pulmonary Disease 02/17/20 Andrzej Garland MD [address] [place] [address] Dr [place], [place] [address] Ophthalmology 04/07/20 documented as of this encounter Additional Source Comments The information contained in this document represents components of the legal health record. It is not the complete legal health record.[facility]
--- OUTSIDE RECORDS SUMMARY | 2025-06-14 02:44 | XMS_ITS | Encounter Summary ---
Author Organization [facility] Address [address] [place] [address] Phone Care Team Providers Care Prescription Benefit Specialist Name Role Phone Ted Pearl MD Primary Care Provider [phone] Sterling Ware MD Unavailable [phone] Tyrel Amaya MD Unavailable [phone] Andrzej Garland MD Unavailable [phone] Win Reyes PA-C Primary Care Provider [phone] Encounter Details Date Type Department Care Team (Latest Contact Info) Description 01/05/2024 Ancillary Orders [facility] Rheumatology [address] [place] [address] Edie Pina MD [address] [facility] [address] [facility], [address] [place] [address] [email or web address] Lupus erythematosus tumidus (Primary Dx); [...] Description 09/11/2025 7:20 AM EST [facility] [address] [place] [address] Win Reyes PA-C [address] [place] [address] 12/10/2025 8:00 AM EDT Office Visit [facility] Rheumatology [address] [place] [address] Edie Pina MD [address] [place] [address] [email or web address] documented as of [...] with subchondral sclerosis, bony proliferative change, and ciwy-my-unef contact is severe in the medial, moderate to severe in the patellofemoral, and mild in the lateral compartment. Small joint effusion. No acute fracture or dislocation. Procedure Note Ady Love MD - 01/07/2024 XR KNEE 4 OR MORE VIEWS (BILATERAL) Referring clinician's provided indication for this examination in [facility]:Pain; stiffness, worse pain going up the stairs COMPARISON: None FINDINGS: RIGHT KNEE: Knee joint space narrowing with subchondral sclerosis, cysticchange, and marginal osteophytes is moderate to severe in the medial,moderate to severe in the patellofemoral, and mild in the lateralcompartment. No joint effusion. No acute fracture or dislocation. LEFT KNEE: Knee joint space narrowing with subchondral sclerosis, bonyproliferative change, and rjfk-dn-dtya contact is severe in the medial,moderate to [...] documented as of this encounter Care Teams Prescription Benefit Specialist Relationship Specialty Start Date End Date Ted Pearl MD [address] [place] [id number] PCP - General Internal Medicine 12/18/19 04/21/25 Win Reyes PA-C [address] [place] [address] PCP - General Physician Industrial Electrician 04/22/25 Sterling Ware MD [address] [place] [address] [email or web address] Dermatology 12/20/19 Tyrel Amaya MD [address] [place] [address] [place] [address] Pulmonary Disease 02/17/20 Andrzej Garland MD [address] [place] [address] [place] [address] Ophthalmology 04/07/20 documented as of this encounter Additional Source Comments The information contained in this document represents components of the legal health record. It is not the complete legal health record.[facility]
[2025-06-14] MEDS: Albuterol Sulfate (0.083%) 2.5 MG/3 ML VIAL.NEB INHALE (02:59)
[2025-06-14 03:00] LABS: Alanine Aminotransferase 25 U/L (0-40); Albumin Level 4.0 g/dL (3.5-5.0); Alkaline Phosphatase 103 U/L (39-117); Anion Gap 14 (12-20); Aspartate Amino Transferase 27 U/L (5-37); Blood Urea Nitrogen 13 mg/dL (9-16); Calcium 9.2 mg/dL (8.4-10.2); Carbon Dioxide 23 mmol/L (22-29); Chloride 107 mmol/L (96-108); Creatinine Clr Calc Pharmacy 83.7; Estimated Glomerular Filt Rate > 60; Magnesium 1.5 mg/dL (1.6-2.6); Potassium 3.6 mmol/L (3.3-5.1); Sodium 140 mmol/L (135-145); Total Protein 6.6 g/dL (6.5-8.0)
[2025-06-14 03:06] LABS: Troponin-I High Sensitivity 4.0 ng/L (<3.5-35.0)
--- NOTE | 2025-06-14 04:17 | PM.IMHP ---
History of Present Illness Date of Service: 06/14/25 Attending physician on admission: Ramos Scott Chief Complaint: Fever Patient is a 70-year-old male with a past medical history significant for multiple pneumonias, COPD -no home oxygen, SLE on hydrochloroquine, CAD with abonrlam EKGS and normal cardiac cath and essential hypertension, who presented to the ED due to fever and shortness of breath. The patient was just recently hospitalized with left-sided pneumonia and acute COPD exacerbation and completed course of Augmentin as well as prednisone. Patient denies any wheezing, chest tightness or chest pain. He took 2 Tylenol around midnight for a temp of 103 at home, tachycardic and tachypneic as well as hypoxic. Review of Systems Constitutional: Constitutional: Denies body ache(s), Denies chills, Denies fatigue, Reports fever(s) and Denies headache(s) Eyes: Eyes: Denies change in vision ENT: Denies headache(s), Denies nasal congestion and Denies sore throat Cardiovascular: Cardiovascular: Denies chest pain, Denies rapid heart rate, Denies lightheadedness and Reports dyspnea Respiratory: Respiratory: Reports chest congestion, Reports cough, Reports dyspnea and Denies wheezing Gastrointestinal: Gastrointestinal: Denies abdominal pain, Denies diarrhea, Denies nausea and Denies vomiting Genitourinary: Genitourinary: Denies dysuria, Denies urinary frequency and Denies urinary urgency Musculoskeletal: Musculoskeletal: Denies myalgias Integumentary/Breasts: Skin/Breast: Denies rash Neurologic: Denies confusion and Denies headache(s) Psychiatric: Psychiatric: Denies confusion Endocrine: Endocrine: Denies fatigue Hematologic/Lymphatic: Hematologic/Lymphatic: Denies easy bleeding Allergic/Immunologic: Allergic/Immunologic: Denies wheezing [facility] Medical History Emphysema lung Pneumonia involving left lung Personal history of nicotine dependence COPD (chronic obstructive pulmonary disease) Benign paroxysmal positional vertigo Tubular adenoma Lupus Pancreatic insufficiency Tubulovillous adenoma GERD (gastroesophageal reflux disease) HTN (hypertension) Functional capacity: wheelchair bound Family History Father HTN (hypertension) Mother Cancer Sister Cancer Surgical History Hx of tonsillectomy History of vasectomy History of colonoscopy History of left inguinal hernia repair History of esophagogastroduodenoscopy (EGD) Social History Household Members: Spouse Housing: House Do you presently have visiting nurse or other home services: No Alcohol intake: current Alcohol intake frequency: 0-2 drinks per day Alcohol type: beer Patient Tobacco Use Status: Former Tobacco user Tobacco use type: Cigarette Years Smoked: 35 Smoked in Last 30 Days: No e-Cigarette/Vaping Use: Never Used Second Hand Smoke Exposure: No Use of substances other than those prescribed or required for medical reasons: No Advance Directives: Yes Advance Directives on File: Yes Advance Directives Date on File: 03/16/23 Do you have a plan to hurt others: No Plan service: No Narrative: drinks 6 beers/day, previous smoker, no drug use Meds Allergies Allergy/AdvReac Type Severity Reaction Status Date / Time ibuprofen Allergy Mild tongue Verified 06/14/25 02:01 swelling Active Medications: Current Medications Acetaminophen (Acetaminophen 325 Mg Tablet) 975 mg PO Q6H PRN PRN Reason: Pain, Mild 1-3,fever,headache Calcium Carbonate (Calcium Carbonate 750 Mg Tab.Chew) 750 mg PO Q4H PRN PRN Reason: Heartburn Enoxaparin Sodium (Enoxaparin Sodium 40 Mg/0.4 Ml Syringe) 40 mg SUBCUT Q24H [facility] Ceftriaxone Sodium 2 gm/ (Sodium Chloride) 50 mls @ 100 mls/hr IV Q24H [facility] Doxycycline Hyclate 100 mg/ (Sodium Chloride) 250 mls @ 166.67 mls/hr IV Q12H [facility] Magnesium Hydroxide (Milk Of Magnesia 30 Ml Oral.Susp) 30 ml PO DAILY PRN PRN Reason: Constipation Magnesium Oxide (Magnesium Oxide 400 Mg Tablet) 400 mg PO ONCE ONE Stop: 06/14/25 09:01 Melatonin (Melatonin 3 Mg Tablet) 6 mg PO BEDTIME PRN PRN Reason: Insomnia Ondansetron HCl (Ondansetron Hcl 4 Mg/2 Ml Vial) 4 mg IVPUSH Q8H PRN PRN Reason: Nausea and Vomiting Sodium Chloride (0.9 % Sodium Chloride Flush 3 Ml Syringe) 3 ml IVFLUSH QSHIFT [facility] Home Medications ?Medication ?Instructions ?Recorded ?Confirmed ?Last Taken ?Type hydroxychloroquine 200 mg tablet 200 mg PO BID 03/14/23 05/23/25 05/22/25 History multivitamin 1 tab PO DAILY 03/21/23 05/23/25 05/22/25 History acetaminophen 325 mg tablet 650 mg PO Q4H PRN Pain 12/11/24 05/23/25 Unknown History (Tylenol) lactobacillus combination no.4 3 3,000 mmu cells PO DAILY 12/11/24 05/23/25 05/22/25 History billion cell capsule (Probiotic) albuterol sulfate 90 mcg/actuation 2 puff inhalation Q6H PRN dyspnea 01/02/25 05/23/25 Unknown History aerosol inhaler aspirin-caffeine 500 mg-32.5 mg 1 tab PO Q6H PRN Pain 01/02/25 05/23/25 Unknown History tablet (Gary Back and Body) atenolol 50 mg tablet 50 mg PO DAILY 03/05/25 05/23/25 05/22/25 History losartan 100 mg tablet 100 mg PO DAILY 04/30/25 05/23/25 05/22/25 History Physical Exam Vital Signs and Narrative: Vital Signs: Last Vital Signs Temp 99.8 F 06/14/25 01:59 Pulse 104 H 06/14/25 02:59 Resp 18 06/14/25 02:59 BP 150/72 H 06/14/25 01:59 Pulse Ox 89 L 06/14/25 01:59 O2 Del Method Room Air 06/14/25 01:59 BMI result Body Mass Index 26.5 General: AOx3, no acute distress Resp: Diminished throughout CVS: S1, S2, regular rhythm, tachycardic GI: +BS, NT, no distention Skin: Warm, dry Neuro: Cranial nerves II-XII grossly intact bilaterally. Motor grossly intact bilaterally Extremities: No edema Psych: Appropriate affect Const: General: No confusion Orientation/consciousness: No confusion Neuro: General: No confusion Results Labs 06/14/25 05:29 06/14/25 05:29 Labs: Laboratory Results - last 24 hr 06/14/25 02:31 MCV 91.1 MCH 30.6 MCHC 33.6 RDW 14.0 Plt Count 228 D MPV 9.1 L Immature Gran % (Auto) 0.4 Neut % (Auto) 92.8 H Lymph % (Auto) 3.2 L [place] % (Auto) 2.8 Eos % (Auto) 0.3 Baso % (Auto) 0.5 Lymph # (Auto) 0.4 L [place] # (Auto) 0.3 Eos # (Auto) 0.0 Baso # (Auto) 0.1 Abs Immat Gran (auto) 0.04 H Absolute Neuts (auto) 10.4 H Absolute Nucleated RBC 0.000 Nucleated RBC % (auto) 0.0 Smear Tech's Comments VERIFIED Anion Gap 14 Estim Creat Clear Calc 83.7 Estimated GFR > 60 Random Glucose 132 H Lactic Acid 1.4 Calcium 9.2 Magnesium 1.5 L Total Bilirubin 1.0 AST 27 ALT 25 Alkaline Phosphatase 103 Troponin I High Sens 4.0 D C-Reactive Protein 2.49 H Total Protein 6.6 Albumin 4.0 Ethyl Alcohol < 10 Assessment and Plan (1) Hypoxic respiratory failure: Status: Acute (2) Sepsis: Status: Acute (3) Recurrent pneumonia: Status: Acute (4) Hypomagnesemia: Status: Acute Plan Patient is a 70-year-old male with a past medical history significant for multiple pneumonias, COPD -no home oxygen, SLE on hydrochloroquine, CAD with abonrlam EKGS and normal cardiac cath and essential hypertension, who presented to the ED due to fever and shortness of breath. Acute hypoxic respiratory failure and sepsis in the setting of recurrent pneumonia with recent hospitalization - vancomycin and Zosyn - BP stable, monitor - titrate oxygen as needed - monitor CBC and BMP Hypomagnesemia, chronic - magnesium 400 mg x 1 - monitor BMP and mag Hypertension - normotensive, hold home meds Mild COPD, no acute exacerbation - continue home inhalers CAD - statin SLE - hydroxychloroquine alcohol use disorder - monitor CIWA - did not withdrawal during last admission Med rec pending Full code VTE prophylaxis: Lovenox And patient with acute hypoxic respiratory failure and sepsis in the setting of recurrent pneumonia with recent hospitalization, requiring admission for at least 2 midnight stay for IV antibiotics and monitoring. Quality Stroke Does the patient have a stroke diagnosis?: No VTE Prior VTE?: No VTE Risk Level:: Medical - moderate - high VTE Device Contraindication: Treatment Not Indicated VTE Drug Contraindication: N/A - Med Ordered
[2025-06-14 04:24] LABS: Resp Syncy Virus RNA Qual PCR NEGATIVE (Negative); SARS COV2 PCR INHOUSE NEGATIVE (Negative)
--- NOTE | 2025-06-14 04:50 | HO.NURTONUR ---
70 yo male presenting from home with fever and increased TORRES for the past day. The pt is alert, oriented, able to independently ambulate and make his needs known. Pt reports a fever of 103 orally around 0100 and taking PO Tylenol MAMMAL KEEPER, oral temp has been better since. The pt was noted to be 85% on room air after ambulating a short distance, placed on 2LPM via NC with positive improvement. The pt and his spouse reported recent PNA (left sided) with hospitalization, recently received the Flu and COVID vaccine (? whether 06/12 or 06/13) and denies known sick contacts. Pt with blood cultures x2, lactic, and started on IV Antibiotics. He is able to independently manage his toileting needs. He has a #20 to the left upper forearm
[2025-06-14 05:32] LABS: MANUAL DIFF FLAG NO
[2025-06-14 05:33] LABS: Hematocrit 33.3 % (42.0-52.0); Hemoglobin 11.2 g/dl (14.0-18.0); Imm Gran Abs Auto 0.07 X10*3/uL (0.00-0.03); Imm Gran Pct Auto 0.5 % (0.0-0.4); Lymphocytes Absolute Auto 0.5 X10*3/uL (1.2-4.9); Mean Corpuscular HGB Conc 33.6 g/dl (31.0-36.0); Mean Corpuscular Hemoglobin 30.8 pg (27.0-33.0); Mean Corpuscular Volume 91.5 fL (80.0-98.0); NRBC Abs Auto 0.000 X10*3/uL (0.0-0.012); NRBC Pct Auto 0.0 /100WBC (0.0-0.2); Platelet Count 213 X10*3/uL (160-400); Red Blood Count 3.64 X10*6/uL (4.60-5.80); White Blood Count 15.3 X10*3/uL (4.8-10.8)
[2025-06-14 05:49] LABS: Anion Gap 12 (12-20); Blood Urea Nitrogen 15 mg/dL (9-16); Calcium 9.0 mg/dL (8.4-10.2); Carbon Dioxide 24 mmol/L (22-29); Chloride 107 mmol/L (96-108); Creatinine Clr Calc Pharmacy 78.3; Estimated Glomerular Filt Rate > 60; Magnesium 1.5 mg/dL (1.6-2.6); Potassium 3.3 mmol/L (3.3-5.1); Sodium 140 mmol/L (135-145)
--- NOTE | 2025-06-14 06:44 | PC.NURSE ---
Late entry, this RN to bedside earlier while doxy infusing as patient reported a continued pump alarm going off. He stated that many staff members had come in to restart/reset the pump but it would just continue to alarm once they left. This RN had to troubleshoot the line, replace the IV and was able to get the antibiotic to infuse with ease and without issue. At this time there was 55minutes left on the pump. This is the reason for the delay on the pt's additionally ordered antibiotics. Pt offers no complaints this date/time. Remains on the O2 via NC at 2LPM and is satting well at this time. He continues to independently manage his toileting needs and is able to disconnect/reconnect his leads and monitoring cords. He is aware to call/notify staff if he becomes SOB, dizzy, etc.
--- NOTE | 2025-06-14 07:35 | PHA.MEDREC ---
Pharmacy Consult ? Medication Reconciliation Pharmacy has completed the medication reconciliation.Med rec complete, spoke to patient and compared with claims history. Patient was recently discharged in May
[2025-06-14] MEDS: 0.9 % Sodium Chloride Flush 3 ML SYRINGE IVFLUSH ×2 (08:19→17:24)
[2025-06-14] MEDS: vancomycin/NS 2,000 MG/500 ML PLAST..BAG 250 MG IV (08:22)
--- NOTE | 2025-06-14 10:00 | PM.EVENT ---
Event Note Date of Service: 06/14/25 Event Note: 70-year-old male with a past medical history significant for multiple pneumonias, COPD -no home oxygen, SLE on hydrochloroquine, CAD with abonrlam EKGS and normal cardiac cath and essential hypertension, who presented to the ED due to fever and shortness of breath. Acute hypoxic respiratory failure and sepsis in the setting of recurrent pneumonia with recent hospitalization X-ray showing right middle lobe pneumonia continue vancomycin and Zosyn titrate oxygen as needed Follow up blood cultures Sputum culture Hypomagnesemia, chronic IV and oral replacement Hypertension normotensive Continue losartan and atenolol Mild COPD, no acute exacerbation Albuterol as needed CAD statin SLE hydroxychloroquine Alcohol use disorder monitor CIWA did not withdrawal during last admission Full code VTE prophylaxis: Lovenox Time Spent With Patient Time: Total time managing care of this patient today ____ minutes.
--- NOTE | 2025-06-14 11:43 | PHA.PROG ---
Admission Date/Time: June 14, 2025 04:04 Indication: RESP Weight in k.389 kg Serum Creatinine - Last 168 Hours 06/14/25 06/14/25 02:31 05:29 Creatinine 0.73 0.78 Estimated CrCl and GFR - Last 168 Hours 06/14/25 06/14/25 02:31 05:29 Estim Creat Clear Calc 83.7 78.3 Estimated GFR > 60 > 60 Vancomycin Loading Dose: 2000 Current Vancomycin Dosing Regimen: 750 Vancomycin Monitoring using AUC goal of 400 - 600 range with trough as surrogate marker 414 Date and Time for next Vancomycin Level to be drawn: 06/15 @ 0600 Pharmacist Comments on Vancomycin Plan: Vancomycin dosing will take advantage of [employer] as a clinical decision support tool that uses Bayesian modeling to calculate individual patient's pharmacokinetic parameters and forecast the patient's drug concentration time course with the target goal AUC 24 range of 400 - 600 mg/L/hr.
[2025-06-14] MEDS: Magnesium Sulfate/H2O 2 GM/50 ML PIGGYBACK IV (11:52)
[2025-06-15 03:45] VITALS: BP 149/78; PULSE 72; RESP 16; TEMP 37; O2SAT 94
[2025-06-15 06:15] LABS: MANUAL DIFF FLAG NO
[2025-06-15 06:16] LABS: Hematocrit 35.0 % (42.0-52.0); Hemoglobin 11.4 g/dl (14.0-18.0); Imm Gran Abs Auto 0.06 X10*3/uL (0.00-0.03); Imm Gran Pct Auto 0.5 % (0.0-0.4); Lymphocytes Absolute Auto 1.3 X10*3/uL (1.2-4.9); Mean Corpuscular HGB Conc 32.6 g/dl (31.0-36.0); Mean Corpuscular Hemoglobin 30.3 pg (27.0-33.0); Mean Corpuscular Volume 93.1 fL (80.0-98.0); NRBC Abs Auto 0.000 X10*3/uL (0.0-0.012); NRBC Pct Auto 0.0 /100WBC (0.0-0.2); Platelet Count 204 X10*3/uL (160-400); Red Blood Count 3.76 X10*6/uL (4.60-5.80); White Blood Count 12.4 X10*3/uL (4.8-10.8)
[2025-06-15 06:27] LABS: Anion Gap 11 (12-20); Blood Urea Nitrogen 10 mg/dL (9-16); Calcium 9.6 mg/dL (8.4-10.2); Carbon Dioxide 25 mmol/L (22-29); Chloride 106 mmol/L (96-108); Creatinine Clr Calc Pharmacy 89.9; Estimated Glomerular Filt Rate > 60; Potassium 3.6 mmol/L (3.3-5.1); Sodium 138 mmol/L (135-145)
--- NOTE | 2025-06-15 06:43 | HE.PHANOTE ---
VANCO DOSE ADJUSTMENT BASED ON SCR AND TROUGH OF 11.4. Dose increased to 1000 q 12h. next level 06/16 @ 1800
[2025-06-15 07:42] VITALS: BP 135/80; PULSE 64; RESP 18; TEMP 36.6; O2SAT 95
[2025-06-15 08:28] VITALS: BP 135/80; PULSE 64
[2025-06-15] MEDS: 0.9 % Sodium Chloride Flush 3 ML SYRINGE IVFLUSH (08:28)
--- NOTE | 2025-06-15 09:27 | PM.DS ---
DS: Providers Provider Date of Service: 06/15/25 Date of admission: 06/14/25 04:04 Date of discharge: 06/15/25 Primary care physician: Ted Pearl MD DS: Diagnosis Discharge Diagnosis (1) Hypoxic respiratory failure: Status: Acute (2) Sepsis: Status: Acute (3) Recurrent pneumonia: Status: Acute (4) Hypomagnesemia: Status: Acute DS: Summary Hospital Course Hospital Course: History and physical as per admitting provider. Patient is a 70-year-old male with a past medical history significant for multiple pneumonias, COPD -no home oxygen, SLE on hydrochloroquine, CAD with abonrlam EKGS and normal cardiac cath and essential hypertension, who presented to the ED due to fever and shortness of breath. The patient was just recently hospitalized with left-sided pneumonia and acute COPD exacerbation and completed course of Augmentin as well as prednisone. Patient denies any wheezing, chest tightness or chest pain. He took 2 Tylenol around midnight for a temp of 103 at home, tachycardic and tachypneic as well as hypoxic. 70-year-old man treated for acute hypoxic respiratory failure in the setting of recurrent pneumonia with recent hospitalization. Treated with vancomycin and Zosyn. Titrated off oxygen. Does not use oxygen at home. Patient to follow up with the slot floor attendant as he has had frequent hospitalizations due to pneumonia. Hypomagnesemia. Chronic. Repleted Hypertension. Normotensive. Continue home medications COPD without exacerbation. Continue home inhalers Coronary artery disease. Continue statin Lupus. In remission. Continue Plaquenil Alcohol use disorder. No withdrawing, negative CIWA. Time Attestation Discharge Coordination Time (in mins): 46 Quality: Safe Use of Opioids Does Pt have an Active Cancer Diagnosis on the Problem List?: No Quality: Stroke Does the patient have a stroke diagnosis?: No Physical Exam Exam: Exam: Appearing in no acute distress head is normocephalic atraumatic eyes pupils are PERRLA sclera is anicteric mouth throat mucous membranes are intact and moist neck is supple no lymphadenopathy, no JVD noted lung sounds are clear to auscultation heart regular rate rhythm, clear S1, S2 positive bowel sounds, abdomen is soft, nontender neuro patient is alert x3, no focal deficits Vital Signs: Vital Signs: Last Vital Signs Temp 97.9 F 06/15/25 07:42 Pulse 64 06/15/25 08:28 Resp 18 06/15/25 07:42 BP 135/80 06/15/25 08:28 Pulse Ox 95 06/15/25 07:42 O2 Del Method Room Air 06/15/25 07:42 O2 Flow Rate 2 06/14/25 06:24 BMI result Body Mass Index 26.5 DS: Data Data Completed and Pending Labs on day of discharge: Laboratory Results - last 24 hr 06/15/25 05:59 WBC 12.4 H RBC 3.76 L Hgb 11.4 L Hct 35.0 L MCV 93.1 MCH 30.3 MCHC 32.6 RDW 14.3 Plt Count 204 MPV 9.1 L Immature Gran % (Auto) 0.5 H Neut % (Auto) 79.5 H Lymph % (Auto) 10.4 L [place] % (Auto) 7.2 Eos % (Auto) 1.7 Baso % (Auto) 0.7 Lymph # (Auto) 1.3 [place] # (Auto) 0.9 Eos # (Auto) 0.2 Baso # (Auto) 0.1 Abs Immat Gran (auto) 0.06 H Absolute Neuts (auto) 9.9 H Absolute Nucleated RBC 0.000 Nucleated RBC % (auto) 0.0 Sodium 138 Potassium 3.6 Chloride 106 Carbon Dioxide 25 Anion Gap 11 L BUN 10 Creatinine 0.68 Estim Creat Clear Calc 89.9 Estimated GFR > 60 Random Glucose 94 Calcium 9.6 D Random Vancomycin 11.4 L Preliminary micro results at discharge 06/14/25 02:37 Blood Culture - Preliminary Blood - Venous No growth after 24 hours. 06/14/25 02:31 Blood Culture - Preliminary Blood - Venous No growth after 24 hours. Discharge Plan Discharge Anticipated Discharge Date/Time: 06/15/25 09:20 Patient Disposition: Home, Self-Care Discharge Diagnosis: Acute hypoxic respiratory failure secondary to recurrent pneumonia Referrals: Ted Pearl MD [Primary Care Provider, Internal Medicine] - 1 Week Discharge Medications: New cefuroxime axetil 500 mg tablet 500 mg PO BID Qty: 8 0RF doxycycline hyclate 100 mg tablet 100 mg PO BID Qty: 8 0RF Continued (MAC) maeve Coffmanc See Rx Instructions .MEDSUPPLY Qty: 1 0RF Rx Instructions: Folding Front wheeled walker fluticasone furoate-vilanterol [Breo Ellipta] 200-25 mcg/dose blister with device 1 ea inhalation DAILY Qty: 60 3RF albuterol sulfate 90 mcg/actuation HFA aerosol inhaler 2 puff inhalation Q6H PRN (Reason: dyspnea) Gary Back and Body 500-32.5 mg Tablet 1 tab PO Q6H PRN (Reason: Pain) esomeprazole magnesium 40 mg capsule,delayed release(DR/EC) 40 mg PO DAILY@1630 atorvastatin 80 mg tablet 80 mg PO DAILY hydroxychloroquine 200 mg tablet 200 mg PO BID acetaminophen [Tylenol] 325 mg Tablet 650 mg PO Q4H PRN (Reason: Pain) Probiotic 3 billion cell Capsule 3,000 mmu cells PO DAILY Rx Instructions: administer with a meal multivitamin Tablet 1 tab PO DAILY atenolol 50 mg tablet 50 mg PO DAILY losartan 100 mg tablet 100 mg PO DAILY Discharge Orders: Discharge Order (Routine); Ordered 06/15/25 Ordered By: Estelita Amaya Diet: Advance to usual diet Activity on Discharge: As tolerated Stand Alone Forms: Patient Portal Discharge page Print Language: Bulgarian Care Plan Goals: Complete course of antibiotics Health Concerns: Acute hypoxic respiratory failure secondary to recurrent pneumonia Plan of Treatment: Follow up with the primary care provider as needed Take all medications as prescribed Assessment: See discharge summary
--- NOTE | 2025-06-15 16:29 | MHC.CM.PN ---
PT LIVES WITH HIS AND IS INDEPENDENT WITH CARE HE HAS NO DME OR SERVICES PCP: ENOCH LI HCP ON FILE IMM DELIVERED PT DISCHARGED HOME TODAY WITH NO SERVICES
== END 2025-06-15 10:27 | disposition home or self-care (01) | DRG 193 ==
LOC: HO.ED 04:03 → HO.EDOVER 04:12 → HO.S3 10:02
PROVIDERS: Admitting Provider Physician Assistant; Emergency Provider Emergency Medicine; PCP Internal Medicine; Visit Provider Nurse Practitioner Acute Care
DX: J18.9 Pneumonia, unspecified organism (principal); J96.01 Acute respiratory failure with hypoxia; J44.0 Chronic obstructive pulmonary disease with (acute) lower respiratory infection; I10 Essential (primary) hypertension; I25.10 Atherosclerotic heart disease of native coronary artery without angina pectoris; M32.9 Systemic lupus erythematosus, unspecified; F10.90 Alcohol use, unspecified, uncomplicated; E83.42 Hypomagnesemia; Z20.822 Contact with and (suspected) exposure to COVID-19; Z87.01 Personal history of pneumonia (recurrent); Z87.891 Personal history of nicotine dependence; Z79.899 Other long term (current) drug therapy
CPT/HCPCS: 36415; 71045; 80048; 80053; 80202; 80307; 83605; 83735; 84484; 85025; 86140; 87040; 87070; 87205; 87637; 93005; 94640; 99285; J0696; J1271; J1650; J2543; J3373; J3374; J3475

== ENCOUNTER → 2025-06-14 02:04 | Outpatient (BNV) | payer MEDICARE, SELFPAY | PROVIDERS: Admitting Provider Physician Assistant; Emergency Provider Emergency Medicine; PCP Internal Medicine; Visit Provider Internal Medicine Cardiovascular Disease | DX: I49.1 Atrial premature depolarization (principal); R00.0 Tachycardia, unspecified | CPT/HCPCS: 93010 ==

== ENCOUNTER → 2025-06-14 03:20 | Outpatient (BNV) | payer MEDICARE, SELFPAY | PROVIDERS: Admitting Provider Physician Assistant; Emergency Provider Emergency Medicine; PCP Internal Medicine; Visit Provider Radiology Vascular & Interventional Radiology | DX: J18.9 Pneumonia, unspecified organism (principal) | CPT/HCPCS: 71045 ==

== ENCOUNTER → 2025-06-14 04:04 | Outpatient (BNV) | payer MEDICARE, SELFPAY | PROVIDERS: Admitting Provider Physician Assistant; Emergency Provider Emergency Medicine; PCP Internal Medicine; Visit Provider Nurse Practitioner Acute Care | DX: J96.91 Respiratory failure, unspecified with hypoxia (principal); A41.9 Sepsis, unspecified organism; J18.9 Pneumonia, unspecified organism; E83.42 Hypomagnesemia | CPT/HCPCS: 99223; 99499 ==

== ENCOUNTER 2025-06-17 08:39 | Outpatient (REF) | payer MEDICARE, SELFPAY ==
[2025-06-17 12:01] LABS: Anion Gap 14 (12-20); Blood Urea Nitrogen 21 mg/dL (9-16); Calcium 9.9 mg/dL (8.4-10.2); Carbon Dioxide 23 mmol/L (22-29); Chloride 107 mmol/L (96-108); Estimated Glomerular Filt Rate 29; Magnesium 1.9 mg/dL (1.6-2.6); Potassium 4.2 mmol/L (3.3-5.1); Sodium 140 mmol/L (135-145)
[2025-06-18 14:24] LABS: Immunoglobulin G Subclass 1 387 mg/dL (382-929); Immunoglobulin G Subclass 2 152 mg/dL (241-700); Immunoglobulin G Subclass 3 73 mg/dL (22-178); Immunoglobulin G Subclass 4 29.3 mg/dL (4-86); Immunoglobulin G Total 655 mg/dL (600-1540)
== END 2025-06-17 08:40 | disposition home or self-care (01) ==
LOC: HO.WFDLDS 08:39
PROVIDERS: Internal Medicine; PCP Internal Medicine; Visit Provider Nurse Practitioner Family
DX: J18.9 Pneumonia, unspecified organism (principal); J43.9 Emphysema, unspecified; J98.6 Disorders of diaphragm; Z87.891 Personal history of nicotine dependence; E83.42 Hypomagnesemia
CPT/HCPCS: 36415; 80048; 82784; 83735; 94618; 99212

== ENCOUNTER 2025-06-17 08:39 | Outpatient (AMB) | payer MEDICARE, SELFPAY ==
--- OUTSIDE RECORDS SUMMARY | 2025-06-12 09:00 | XMS_ITS | Encounter Summary ---
Author Organization [facility] Address [address] [place] [address] Phone Care Team Providers Care Campus Recruiting Coordinator Name Role Phone Sterling Ware MD Unavailable [phone] Tyrel Amaya MD Unavailable Andrzej Garland MD Unavailable [phone] Win Reyes PA-C Primary Care Provider [phone] Reason for Visit * Reason Comments Follow-up Primary osteoarthrit is of both knees Encounter Details Date Type Department Care Team (Latest Contact Info) Description 06/12/2025 9:00 AM EST Office Visit [facility] Rheumatology [address] [place] [id number] Edie Pina MD [address], [address] [place] [address] [email or web address] Lupus erythematosus tumidus (Primary Dx); Primary osteoarthritis of both knees; Raynaud's phenomenon without gangrene; Gastroesophageal reflux disease with esophagitis without hemorrhage; Long-term use of Plaquenil; On statin therapy Social History Tobacco Use Types Packs/Day Years [...] Sign Reading Time Taken Comments Blood Pressure 106/64 06/12/2025 8:55 AM EST Pulse 57 06/12/2025 8:55 AM EST Temperature - - Respiratory Rate - - Oxygen Saturation 99% 06/12/2025 8:55 AM EST Inhaled Oxygen Concentration - - Weight 75.8 kg (167 lb) 06/12/2025 8:55 AM EST Height - - Body Mass Index 26.43 06/11/2025 7:14 AM EST documented in this encounter Progress Notes * Edie Pina MD - 06/12/2025 9:00 AM EST Patient: Hardy Jackson : 1955 Date: 06/12/2025 Time: 9:30 AM HPI: Hardy Jackson is a right-handed dominant 70 y.o.male here for a f/u re: 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 He has concomitant systemic lupus erythematosus diagnosed about 4 years ago but present based on his report for about 25-30 years. Diagnosis was based on skin biopsy from 07/24/2020 at [facility]. There is concomitant polyarticular osteoarthritis particularly affecting his knees, Raynaud's phenomenon, exocrine pancreatic insufficiency, GERD. He gives a history of 4 bouts of pneumonia in the last 3 years. Since last visit on 03/31/2025 completing 3 weekly intra-articular Synvisc injections into his right knee Sally reports no pain at rest but increasing pain going up the stairs especially carrying something. In general does not find greater response than from cortisone injected in the past. He suffered pneumonia in mid May affecting mostly his left lung that brought him to [facility] on 05/23/2025-he got discharged on 05/25/2025 and was prescribed 2 different antibioticsfor 5 days afterwards. He feels better now. Yesterday had yearly checkup with his primary doctor-Dr. Pearl who is asking him to get some more tests in regards to his prostate issues. He is scheduled for yearly influenza and COVID-19 vaccinations tomorrow because He could not get them in mid May since he ended up in hospital because of pneumonia. He admits to intermittent small skin lesions on his back from lupus tumidus that are not pruritic as they used to and much less frequent since he started Plaquenil (hydroxychloroquine) He got fifth of 5 injections of PRP into his left knee on Monday-03/19/2025. He was explained by his orthopedic surgeon at [facility] that if he is not satisfied with 5 PRP injections after 3 months he can get number 6 injection for free. Since the visit on 09/06/2024 Hardy suffered from pneumonia on 2 occasions within the month of December 2024 and just returned from [facility] on 01/08/2025 where he was treated for suspected myocardial injury, hypertension, pneumonia, COPD exacerbation, alcohol use disorder and hypomagnesemia. He is now taking Lipitor 80 mg daily in addition to baby aspirin daily and Carvedilol 6.25 mg twicedaily with meals. He reports quitting cigarette smoking about 10 years ago. Within the last 8 years recalls at least 8 episodes of pneumonia. He had recent checkup with his radial router operator on 12/26/2024 that reassured no signs of Plaquenil toxicity-next follow-up is requested in 12 months. No falls or injuries. He reports that both knees are sore and stiff with a little bit of swelling medially, R>L. Most of the pain is while walking on the stairs, particularly going up at 8/10. Cortisone and Synvisc injection into the left knee did not help him. He was seen by orthopedic surgery and was told that he needs Left total knee replacement. He decided to proceed with PRP injections into the left knee as above and finds them somewhat helpful. He is interested in getting another series of hyaluronic acid injection into his right knee. No falls but if my foot gets stuck and I turn inadvertently it hurts me the most . He went to PT for his neck x 5 weeks it did not find it really helpful but also admits that it did not make it worse. On regular walking pain is tolerable. He walks with his between 7500-10,000 steps daily except for last month when he was sick with pneumonia on 2 occasions. I used to see family practitioner every 3 months. Since I am on Plaquenil I did not need intramuscular cortisone injection by family practitioner since October 2021 until mid June 2022 . My lupus tumidus still flares on and off but not as bad as prior to taking Plaquenil . His last ocular checkup was in April 2024-no signs of Plaquenil toxicity. He got diagnosed with exocrine pancreatic insufficiency(EPI) after seeing treasury representative for stomach issue -I stopped Protonix for 2-weeks to get tested for H. pylori and subsequently got diagnosed with EPI and started Creon. No episodes of red, hot or swollen joints. I have had heartburn since the age of 15 . I am on low potassium diet. Sometimes his skin breaks out on forehead and he used to get nice response to 0.05% Betamethasone dipropionate cream that he requests prescription for today. He was sick with COVID-19 infection in October 2023 along with his -it was a really mild case-he took Paxlovid and recovered. 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 Medications: Current Outpatient Medications Medication Sig Dispense Refill Last Dispense acetaminophen (TYLENOL) 325 mg tablet Take by mouth. NEEDED Unknown (patient-reported) albuterol 90 mcg/actuation inhaler Inhale 2 puffs into the lungs every 6 (six) hours as needed for shortness of breath/dyspnea. 18 g 3 Unknown (outside pharmacy) aspirin-caffeine (ANNE BACK AND BODY) 500-32.5 mg Tab Take by mouth. Unknown (patient-reported) atenolol (TENORMIN) 50 mg tablet Take 1 tablet (50 mg total) by mouth every morning. 100 tablet 3 Unknown (outside pharmacy) atorvastatin (LIPITOR) 80 MG tablet TAKE 1 TABLET BY MOUTH EVERY DAY 90 tablet 3 Unknown (outside pharmacy) BREO ELLIPTA 200-25 mcg/dose inhaler Inhale 1 puff into the lungs daily. Unknown (patient-reported) esomeprazole (NEXIUM) 40 MG capsule Take 40 mg by mouth nightly at bedtime. Unknown (patient-reported) Lactobacillus acidophilus (PROBIOTIC ORAL) Take 1 capsule by mouth daily. Unknown (patient-reported) losartan (COZAAR) 100 MG tablet TAKE 1 TABLET DAILY 90 tablet 3 Unknown (outside pharmacy) MULTIVITAMIN ORAL Take 1 capsule by mouth daily. Unknown (patient-reported) hydroxychloroquine (PLAQUENIL) 200 mg tablet Take 1 tablet (200 mg total) by mouth 2 (two) times a day. 180 tablet 3 Unknown (outside pharmacy) No current facility-administered medications for this visit. Allergies: Allergies Allergen Reactions Ibuprofen Swelling and Other (See Comments) Other reaction(s): Itchy hands, throat closing Other reaction(s): tongue swelling Levaquin [Levofloxacin] Other (See Comments) nightmares Lisinopril Cough Social History: reports that he quit smoking about 9 years ago. His smoking use included cigarettes. He started smoking about 55 years ago. He has a 92.2 pack-year smoking history. He has never used smokeless tobacco. He reports current alcohol use of about 42.0 standard drinks of alcohol per week. He reports thathe does not currently use drugs. Social History Social History Narrative x 42 years. 2 daughters: A 45-year old daughter from previous marriage with celiac disease and a 35-year-old daughter with current marriage-healthy. Lives with his in a 2-level house with [place] and reports generally no problems walking on stairs, uses rails, no falls. 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 Admits to drinking > 2 beers daily x 10 years, no IVDA, STD or blood transfusions. Hobby: Walking 10-12 K steps daily, fishing, playing active videogames 2x/week for about 30 minuteseach time. Meeting every Monday with his former boss and current boss from the [employer] Family History: family history includes Cancer in his mother and sister. No systemic rheumatic diseases in family members to his knowledge. Father at 40 from liver cancer, mother at 65 from? Lymph node cancer. His 69-year-old sister is healthy. He lost younger sister and younger brother to cancers but could not provide details on it. ROS: Complete review of systems performed and negative except as in HPI above. Physical Exam: BP 106/64 (Patient Position: Sitting) Pulse (!) 57 Wt 75.8 kg (167 lb) SpO2 99% BMI 26.43 kg/m?? A pleasant, elderly male in no acute distress. Alert, oriented x3. HEENT: NC, AT, normal ears, eyes, nose and throat exam Neck supple, symmetric, no lymphadenopathy or thyromegaly Cor: regular, no murmur or rub Lungs: clear to auscultation bilaterally Ext: no edema, cyanosis or clubbing MSK: Limited to the lower extremities Quite normal hips, knees, ankles, subtalar joints, MTP, IP exam except for bilateral knee crepitus,R>L without active synovitis. Tenderness over medial joint line bilaterally. Neuro:-no focal deficits Skin: Dry with diffuse bruises on dorsum of hands, forearms and over left proximal arm just above the elbow. Coalescing circumferential, serpiginous palpable erythematous lesions on upper back. Bilateral calves trophic skin changes with brownish hyperpigmentation, L>R. Labs: Hospital Outpatient Visit on 05/29/2025 Component Date Value Ref Range Status SODIUM 05/29/2025 140 133 - 146 mmol/L Final POTASSIUM 05/29/2025 4.4 3.3 - 5.1 mmol/L Final CHLORIDE 05/29/2025 103 96 - 108 mmol/L Final CO2 05/29/2025 25 21 - 35 mmol/L Final BUN 05/29/2025 13 6 - 19 mg/dL Final CREATININE 05/29/2025 0.70 0.5 - 1.5 mg/dL Final GLUCOSE 05/29/2025 85 70 - 99 mg/dL Final ALBUMIN 05/29/2025 3.9 3.9 - 4.8 g/dL Final TOTAL PROTEIN 05/29/2025 7.3 6.5 - 8.0 g/dL Final CALCIUM 05/29/2025 10.0 8.4 - 10.3 mg/dL Final ALKALINE PHOSPHATASE 05/29/2025 93 39 - 117 U/L Final TOTAL BILIRUBIN 05/29/2025 0.8 0.0 - 1.2 mg/dL Final AST 05/29/2025 27 0 - 37 U/L Final ALT 05/29/2025 38 0 - 40 U/L Final GLOBULIN 05/29/2025 3.4 1 - 4.8 g/dL Final EGFR 05/29/2025 99 >59 mL/min/1.73m2 Final Estimated glomerular filtration rate calculated using the CKD-EPI refit equation. ANION GAP 05/29/2025 16 10 - 20 mmol/L Final FASTING GLUCOSE 05/29/2025 78 70 - 95 mg/dL Final TSH 05/29/2025 1.37 0.27 - 4.20 uIU/mL Final HDL 05/29/2025 54 mg/dL Final Comment: Interpretation <40 mg/dL: Low HDL cholesterol (major risk factor for CHD) Greater than or equal to 60 mg/dL: High HDL cholesterol ( negative risk factor for CHD) HDL - cholesterol is affected by a number of factors, e.g. smoking, excerise, hormones, sex and age. CHOLESTEROL 05/29/2025 127 0 - 240 mg/dL Final TRIGLYCERIDES 05/29/2025 67 30 - 160 mg/dL Final LDL 05/29/2025 60 50 - 129 mg/dL Final Comment: LDL levels in terms of risk for coronary heart disease: <100 mg/dL: Optimal 100-129 mg/dL: Near or above optimal 130-159 mg/dL: Borderline high 160-189 mg/dL: High >190 mg/dL: Very High CARDIAC RISK RATIO 05/29/2025 2.4 (L) 3.4 - 5.0 Final C REACTIVE PROTEIN 05/29/2025 37.9 (H) 0.0 - 4.0 mg/L Final ESR 05/29/2025 69 (H) 0 - 20 mm/h Final WBC 05/29/2025 9.95 4.00 - 11.00 K/uL Final RBC 05/29/2025 4.49 (L) 4.50 - 5.90 M/uL Final HGB 05/29/2025 13.6 13.5 - 17.5 g/dL Final HCT 05/29/2025 42.1 41.0 - 53.0 % Final PLT 05/29/2025 336 150 - 450 K/uL Final MCV 05/29/2025 93.8 80.0 - 100.0 fL Final MCH 05/29/2025 30.3 27.0 - 31.0 pg Final MCHC 05/29/2025 32.3 32.0 - 36.0 g/dL Final RDW 05/29/2025 13.0 11.5 - 14.5 % Final MPV 05/29/2025 9.3 8.4 - 12.0 fL Final NRBC 05/29/2025 0.00 0.00 /100 WBCs Final ABSOLUTE NRBC 05/29/2025 0.00 0.00 K/uL Final DIFF METHOD 05/29/2025 Manual Final TOTAL CELLS COUNTED 05/29/2025 100 Final NEUTS 05/29/2025 72.0 48.0 - 76.0 % Final LYMPHS 05/29/2025 20.0 18.0 - 41.0 % Final MONOS 05/29/2025 6.0 4.0 - 11.0 % Final EOS 05/29/2025 1.0 0.0 - 5.0 % Final MYELOS 05/29/2025 1.0 (H) 0 % Final ABSOLUTE NEUTS 05/29/2025 7.16 1.92 - 7.60 K/uL Final ABSOLUTE LYMPHS 05/29/2025 1.99 0.72 - 4.10 K/uL Final ABSOLUTE MONOS 05/29/2025 0.60 0.16 - 1.10 K/uL Final ABSOLUTE EOS 05/29/2025 0.10 0.00 - 0.50 K/uL Final ABSOLUTE MYELOS 05/29/2025 0.10 K/uL Final ALAN CELLS 05/29/2025 PRESENT (*) None Final C3 05/29/2025 152 81 - 157 mg/dl Final C4 05/29/2025 51 (H) 12 - 39 mg/dL Final CREATINE KINASE 05/29/2025 29 (L) 35 - 232 U/L Final ANTI DSDNA ANTIBODY 05/29/2025 Negative at 1:10 Final Comment: Edie Bradford M.D., Director Clinical Immunology Laboratory [id number] Normal: Negative at 1:10 To interpret a negative test for anti-ouzinkie or double stranded DNA antibodies in a patient suspected of having systemic lupus erythematosus, the following limitation should be noted. Anti-double stranded DNA antibodies are usually detected in SLE patients with active disease, especially in those with active renal disease. Anti-DNA antibodies are usually not detected in SLE patients with spontaneous or drug- induced remissions. Documentation on 05/26/2025 Component Date Value Ref Range Status Creatinine, serum - External 05/23/2025 1.01 0.8 - 1.3 mg/dL Final ALT - External 05/23/2025 27 5 - 30 U/L Final Potassium level - External 05/23/2025 3.6 3.4 - 5.0 mmol/L Final I have [place] [facility] [place] Valente Jerome, DO from 01/08/2025-see details in media section of [facility]. Skin biopsy from 07/24/2020 at [facility] Department of Pathology: Skin, left upper back (punch): Superficial and deep perivascular and periadnexal dermatitis (see note). Note: The inflammatory infiltrate is moderately dense and primarily composed of lymphocytes, although scattered plasma cells are identified throughout. Active interface change is not identified. An Alcian blue stain highlights variably prominent superficial and deep dermal interstitial mucin. The histologic features appears similar to those described in the prior biopsy and are most suggestive of changes seen with tumid lupus erythematosus. A PAS-D stain is negative for fungi and no significant thickening of the basement membrane zone is appreciated. (See details in media section of [facility]) Assessment and Plan : 1. Lupus erythematosus tumidus (Primary) Assessment & Plan: I have reviewed with patient that almost 98-99% of patients with lupus erythematosus tumidus do nothave inner organ involvements that occurs with systemic lupus erythematosus and treatment is gearedtoward controlling skin disease. Due to his coexistent [...] any side effects. To shorten time for fulleffect I am asking him to carefully increase the dose to 200 mg twice daily. Call if problems otherwise return in 4 months. Another option may be CellCept or less likely Imuran. There are no clear reports in literature that I could find on newer biologic modifying therapy rolein tumid lupus such as Benlysta (belimumab) or Saphnelo (anifrolumab) that are useful and FDA approved for patients with systemic lupus erythematosus. He may benefit from combined dermatology/rheumatology consult at [facility] with Dr. Luly Fisher Orders: - hydroxychloroquine (PLAQUENIL) 200 mg tablet Dispense: 180 tablet; Refill: 3 2. Primary osteoarthritis of both knees Assessment & Plan: Continue joint protection, energy conservation. Gentle, regular exercise routine. Avoid falls, injuries, overuse. Keep body weight in ideal range for his height. He may benefit from topical cream such as Arnica, Biofreeze, Aspercreme versus medicated patches such as salonpas, icy hot patch 2-3 times daily and if necessary at bedtime x 3 weeks. If symptoms progress may need to request another intra-articular cortisone injection. 3. Raynaud's phenomenon without gangrene Assessment & Plan: Keep warm, dress in layers. Optimize stress management strategies. Avoid vasoconstrictors in OTC products for cold/flu and sinus. 4. Gastroesophageal reflux disease with esophagitis without hemorrhage Assessment & Plan: Carefully continue avoid late, large, spicy meals. Keep headboard elevated at 45?? angle for nighttime. Carefully continue Nexium nightly 5. Long-term use of Plaquenil Assessment & Plan: Take carefully as prescribed. 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 Daily sun protection all year round while on Plaquenil. 6. On statin therapy Assessment & Plan: Monitor for muscle tenderness, swelling and weakness Follow-up: Return in about 6 months (around 12/10/2025). documented in this encounter Miscellaneous Notes * Assessment & Plan Note - Edie Pina MD - 06/12/2025 9:29 AM EST Associated Problem(s): Long-term use of Plaquenil Take carefully as prescribed. 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 Daily sun protection all year round while on Plaquenil. * Assessment & Plan Note - Edie Pina MD - 06/12/2025 9:10 AM EST Associated Problem(s): On statin therapy Monitor for muscle tenderness, swelling and weakness * Assessment & Plan Note - Edie Pina MD - 06/12/2025 9:09 AM EST Associated Problem(s): Gastroesophageal reflux disease Carefully continue avoid late, large, spicy meals. Keep headboard elevated at 45?? angle for nighttime. Carefully continue Nexium nightly * Assessment & Plan Note - Edie Pina MD - 06/12/2025 9:09 AM EST Associated Problem(s): Raynaud's phenomenon without gangrene Keep warm, dress in layers. Optimize stress management strategies. Avoid vasoconstrictors in OTC products for cold/flu and sinus. * Assessment & Plan Note - Edie Pina MD - 06/12/2025 9:09 AM EST Associated Problem(s): Primary osteoarthritis of both knees Continue joint protection, energy conservation. Gentle, regular exercise routine. Avoid falls, injuries, overuse. Keep body weight in ideal range for his height. He may benefit from topical cream such as Arnica, Biofreeze, Aspercreme versus medicated patches such as salonpas, icy hot patch 2-3 times daily and if necessary at bedtime x 3 weeks. If symptoms progress may need to request another intra-articular cortisone injection. * Assessment & Plan Note - Edie Pina MD - 06/12/2025 9:09 AM EST Associated Problem(s): Lupus erythematosus tumidus I have reviewed with patient that almost 98-99% of patients with lupus erythematosus tumidus do nothave inner organ involvements that occurs with systemic lupus erythematosus and treatment is gearedtoward controlling skin disease. Due to his coexistent [...] any side effects. To shorten time for fulleffect I am asking him to carefully increase the dose to 200 mg twice daily. Call if problems otherwise return in 4 months. Another option may be CellCept or less likely Imuran. There are no clear reports in literature that I could find on newer biologic modifying therapy rolein tumid lupus such as Benlysta (belimumab) or Saphnelo (anifrolumab) that are useful and FDA approved for patients with systemic lupus erythematosus. He may benefit from combined dermatology/rheumatology consult at [facility] with Dr. Luly Fisher documented in this encounter Plan of Treatment Upcoming Encounters Date Type Department Care Team (Late st Contact Info) Description 06/23/2025 10:40 AM EST Office Visit [facility] [place] [facility] [address] [place] [address] Win Reyes PA-C [address] [place] [address] 09/11/2025 7:20 AM EST Office Visit [facility] Internal Medicine [address] [place], [place] [id number] Win Reyes PA-C [address] [place] [address] [email or web address] 12/10/2025 8:00 AM EDT Office Visit [facility] Rheumatology [address] [place] [address] Edie Pina MD [address], [address] [place] [address] [email or web address] documented as of this encounter Visit Diagnoses Diagnosis Lupus erythematosus tumidus- Primary Primary osteoarthritis of both knees Raynaud's phenomenon without gangrene Gastroesophageal reflux disease with esophagitis without hemorrhage Long-term use of Plaquenil On statin therapy documented in this encounter Additional Health Concerns Assessment Noted Time PHQ-2 Depression Total Score: 0 06/04/20 25 5:11 PM EDT documented as of this encounter Care Teams Campus Recruiting Coordinator Relationship Specialty Start Date End Date Win Reyes PA-C [address] [place] [id number] PCP - General Physician Forestry Worker 04/22/25 Sterling Ware MD Dermatology 12/20/19 Tyrel Amaya MD [address] [place] [address] Dr Larsen [place] [id number] Pulmonary Disease 02/17/20 Andrzej Garland MD [address] [place] [address] [place] [id number] Ophthalmology 04/07/20 documented as of this encounter Additional Source Comments The information contained in this document represents components of the legal health record. It is not the complete legal health record.[facility]
--- NOTE | 2025-06-17 08:41 | A.OFFVIS_ITS ---
Vital Signs 06/17/25 08:42 Height 5 ft 6 in Weight 166 lb 8 oz BMI 26.9 BP 110/60 Blood Pressure Location Rt brachial Position Sitting Pulse 56 Pulse Source Pulse Oximeter Pulse Oximetry (%) 98 Oxygen Delivery Method Room Air Intake Visit Reasons: Pneumonia Allergies ibuprofen Allergy (Mild, Verified 06/17/25 08:44) tongue swelling HPI HPI Pneumonia: Details: Hardy is a pleasant 70 year old male, former 30 pack year smoker, quit 2015, with underlying moderate to severe COPD SLE on hydroxychloroquine, under the care of rheumatology at [facility] and h/o acute respiratory failure with hypoxia secondary to PNA 12/2024. Since the last visit patient has been admitted to [facility] due to recurrent pneumonia, previously treated in December for recurrent PNA. He was admitted 05/23-05/25 with multifocal pneumonia predominantly on the left side treated with ceftriaxone and discharged with doxycycline and Augmentin. Readmitted 06/14-06/15 with RML PNA, left side clear, treated with vanco and Zosyn discharge with doxycycline and cefuroxime. During hospitalizations patient did require supplemental oxygen however was discharged on room air. Sputum cultures have not revealed anything of significance, thought to be related to aspiration as patient with GERD, not managed with esomeprazole. Following with [facility]. He is currently completing course of doxycycline and cefuroxime with overall significant improvement in respiratory symptoms. He reports occasional wheezing and dyspnea, denies cough. [facility] Medical History Emphysema lung Pneumonia involving left lung Personal history of nicotine dependence COPD (chronic obstructive pulmonary disease) Benign paroxysmal positional vertigo Tubular adenoma Lupus Pancreatic insufficiency Tubulovillous adenoma GERD (gastroesophageal reflux disease) HTN (hypertension) Surgical History Hx of tonsillectomy History of vasectomy History of colonoscopy History of left inguinal hernia repair History of esophagogastroduodenoscopy (EGD) Family History Father HTN (hypertension) Mother Cancer Sister Cancer Social History Household Members: Spouse Housing: House Do you presently have visiting nurse or other home services: No Alcohol intake: current Alcohol intake frequency: 0-2 drinks per day Alcohol type: beer Patient Tobacco Use Status: Former Tobacco user Tobacco use type: Cigarette Years Smoked: 35 e-Cigarette/Vaping Use: Never Used Second Hand Smoke Exposure: No Advance Directives Date on File: 03/16/23 service: No Review of Systems Const Denies chills, Denies excessive sweating, Denies fever(s), Denies headache(s) and Denies night sweats Eyes Denies dry eyes, Denies irritation and Denies itchy eyes ENT Reports Normal hearing present, Denies headache(s), Denies nasal congestion, Denies nasal discharge, Denies post nasal drip and Denies sore throat Card Denies chest pain, Denies chest pain at rest, Denies chest pain with activity, Denies claudication, Denies leg edema, Denies orthopnea and Denies paroxysmal nocturnal dyspnea Resp Denies chest congestion, Denies cough, Denies excessive phlegm production, De nies pain on inspiration, Denies pain with cough and Denies stridor Musc Denies myalgias Neuro Reports Normal hearing present and Denies headache(s) Endo Denies excessive sweating Edin/Lymph Denies lymphadenopathy Aller/Immun Denies itchy eyes and Denies seasonal rhinorrhea Physical Exam Vital Signs: Last Vital Signs Pulse 56 06/17/25 08:42 BP 110/60 06/17/25 08:42 Pulse Ox 98 06/17/25 08:42 Oxygen Delivery Method Room Air 06/17/25 08:42 BMI result Body Mass Index 26.9 Const General: cooperative, healthy appearing, comfortable, no acute distress, well developed and alert Orientation/consciousness: patient oriented x3 Limitations: no limitations HEENT Head: Yes normal to inspection, Yes normocephalic and Yes atraumatic Ears: hearing grossly normal bilaterally and external ears normal Eyes General: appearance normal, both eyes and all related structures Eyelids: Yes eyelids normal Sclerae: sclerae normal EOM: EOMs intact bilaterally Neck Neck: Yes normal visual inspection and Yes no lymphadenopathy Lymphatic: no lymphadenopathy noted Chest Chest palpation & inspection: normal inspection of the chest Resp Effort & Inspection: normal respiratory effort, able to speak in complete sentences, no audible wheezes, no cough, no stridor, not tachypneic, no tripod positioning and no use of accessory muscles Auscultation: clear to auscultation bilaterally Cardio Jugular venous distension: no JVD Rate: regular rate Rhythm: regular rhythm Neuro General: patient oriented x3 Cranial nerves: Yes Normal hearing present Cognition (Neuro): normal cognition Gait exam (Neuro): Normal gait present Extrem General: Yes normal to inspection, Yes capillary refill normal, Yes no clubbing, cyanosis or edema and Yes no pedal edema Psych Appearance: grossly normal and well kempt Speech and movement: Normal speech and movement present and Clear speech present Affect: normal affect Attitude: cooperative Thought process: Normal thought process present Thought content: Normal thought content present Insight: Good insight present (Psych) Judgement: Good judgement present (Psych) Office Procedures 6 Minute Walk Time:: 09:30 SPO2 % at rest: 96 Pulse at rest: 59 SPO2 % during excercise: 95 Pulse during excercise: 90 SPO2 % after excercise: 96 Pulse after excercise: 89 Distance in yards walked: 100 Danita Score: 5 Performance Observations:: Patient walked on level ground unassisted. Patient walked for the entire 6 minutes maintaining O2 saturation of 95% or greater and pulse between 60-90. Denies resp distress. Patient reports some sob with walking up an incline or stairs. No supplemental oxygen was needed. [address] - 6 Minute Walk Assessment & Plan Assessment & Plan (1) Recurrent pneumonia: Code(s): J18.9 - Pneumonia, unspecified organism Category: Medical (2) COPD (chronic obstructive pulmonary disease): Code(s): J44.9 - Chronic obstructive pulmonary disease, unspecified Category: Medical (3) Emphysema lung: Code(s): J43.9 - Emphysema, unspecified Category: Medical (4) Elevated diaphragm: Comment: Left Code(s): J98.6 - Disorders of diaphragm Category: Medical (5) Personal history of nicotine dependence: Comment: (Former Smoker, 30+PYH, Quit 2016) Code(s): Z87.891 - Personal history of nicotine dependence Category: Medical Plan The patient will switch from [facility] to [facility] for improved management of COPD symptoms. A nebulizer with albuterol and ipratropium (Duoneb) will be provided for use during exacerbations. A six-minute walk test will be conducted to assess oxygen levels during exertion given significant hypoxemia during hospitalizatio n, patient did not require supplemental oxygen. Blood work will be conducted to assess immune function given recurrent PNAs however may be related to aspiration. A follow-up chest X-ray is planned in four weeks to monitor resolution of the right middle lobe pneumonia. Reviewed SNIFF test which demonstrated immobile left hemidiaphragm. Consideration for thoracic in the future once recurrent PNA resolves. The patient is advised to continue omeprazole and maintain dietary modifications, such as avoiding late meals and using bed risers to prevent possible aspiration. A follow-up with a gastroenter ologist is recommended if symptoms persist. All questions were answered and patient is in agreement of plan. Will follow up in 6-8 weeks or sooner if needed. Orders: Orders Immunoglobulin G Subclasses Today J18.9 - Pneumonia, unspecified organism AMB 6 minute walk Today J44.9 - Chronic obstructive pulmonary disease, unspecified Immunoglobulins,IgG IgA IgM Today J18.9 - Pneumonia, unspecified organism XR chest 2V Today J18.9 - Pneumonia, unspecified organism Medications: New aheeqdvskca-srhjvvhei-ucplqfak 200-62.5-25 mcg (Trelegy Ellipta) 1 inh inhalation DAILY 60 ea 3RF ipratropium-albuterol 0.5 mg-3 mg(2.5 mg base)/3 mL 3 mL inhalation Q6H PRN 180 mL 3RF wheezing Discontinued Breo Ellipta 200-25 mcg/dose (fluticasone furoate-vilanterol) Discontinued Reason: Patient Completed Course 1 ea inhalation DAILY 60 ea 3 RF NS Coding Level of Care Code Est Pt Level 4 (04329) Complex EM visit Add On G2211 Diagnoses Recurrent pneumonia J18.9 COPD (chronic obstructive pulmonary disease) J44.9 Emphysema lung J43.9 Elevated diaphragm J98.6 Personal history of nicotine dependence Z87.891 CPT Codes Coding ([id number])
[2025-06-17 08:42] VITALS: BP 110/60; PULSE 56; O2SAT 98; BMI 26.9
--- OUTSIDE RECORDS SUMMARY | 2025-06-17 08:51 | XMS_ITS | Encounter Summary ---
Author Organization [facility] Address [address] [place] [address] Phone Care Team Providers Care Secondary Set Up Man Name Role Phone Ted Pearl MD Primary Care Provider [phone] Sterling Ware MD Unavailable [phone] Tyrel Amaya MD Unavailable [phone] Andrzej Garland MD Unavailable [phone] Win Reyes PA-C Primary Care Provider [phone] Encounter Details Date Type Department Care Team (Late st Contact Info) Description 01/08/2021 Procedure Pass [facility] Echo Lab [address] [place], [place] [id number] Social History Tobacco Use Types Packs/Day Years [...] Description 06/23/2025 10:40 AM EST Office Visit [facility] Internal Medicine [address] [place], [place] [phone] Win Reyes PA-C [address] [place], [place] [phone] [email or web address] 09/11/2025 7:20 AM EST Office Visit [facility] Internal Medicine [address] [place] [address] Win Reyes PA-C [address] [place], [place] 12/10/2025 8:00 AM EDT Office Visit [facility] Rheumatology [address] [place] [address] Edie Pina MD [address] [place] [address], [address] [place] [address] [email or web address] documented as of this encounter Visit Diagnoses Not on filedocumented in this encounter Additional Health Concerns Infection Onset Date Last Indicated Resolved Time COVID-19 09/19/2023 09/19/2023 10/10/2023 1:21 AM EST CoV-Risk 11/07/2024 11/07/2024 11/18/2024 1:21 AM EDT Assessment Noted Time PHQ-2 Depression Total Score: 0 12/20/19 9:41 AM EDT documented as of this encounter Care Teams Secondary Set Up Man Relationship Specialty Start Date End Date Ted Pearl MD [address] [place] [address] PCP - General Internal Medicine 12/18/19 04/21/25 Win Reyes PA-C [address] [place] [address] PCP - General Physician Bag Liner 04/22/25 Sterling Ware MD [address] [place] [address] [email or web address] Dermatology 12/20/19 Tyrel Amaya MD [address] [place] [address] [place] [address] Pulmonary Disease 02/17/20 Andrzej Garland MD [address] [place] [address] [place] [address] Ophthalmology 04/07/20 documented as of this encounter Additional Source Comments The information contained in this document represents components of the legal health record. It is not the complete legal health record.[facility]
--- OUTSIDE RECORDS SUMMARY | 2025-06-17 08:51 | XMS_ITS | Encounter Summary ---
Author Organization [facility] Address [address] [place] [address] Phone Care Team Providers Care Flat Examiner Name Role Phone Ted Pearl MD Primary Care Provider [phone] Sterling Ware MD Unavailable [phone] Tyrel Amaya MD Unavailable [phone] Andrzej Garland MD Unavailable [phone] Win Reyes PA-C Primary Care Provider [phone] Encounter Details Date Type Department Care Team (Latest Contact Info) Description 01/05/2024 Ancillary Orders [facility] Rheumatology [address] [place] [address] Edie Pina MD [address] [facility], [address] [place] [address] [email or web address] Lupus erythematosus tumidus (Primary Dx); Long-term [...] Description 06/23/2025 10:40 AM EST Office [facility] Internal Medicine [address] [place] [address] Win Reyes PA-C [address] [place] [address] 09/11/2025 7:20 AM EST Office Visit [facility] Internal Medicine [address] [place] [address] Win Reyes PA-C [address] [place], [place] [phone] 12/10/2025 8:00 AM EDT Office Visit [facility] Rheumatology [address] [place] [address] Edie Pina MD [address] [facility], [address] [place] [address] [email or web address] documented as of this encounter Results [...] with subchondral sclerosis, bony proliferative change, and yheg-cm-ohhc contact is severe in the medial, moderate [...] narrowing with subchondral sclerosis, bonyproliferative change, and tonb-he-yseo contact is severe in the medial,moderate to [...] documented as of this encounter Care Teams Flat Examiner Relationship Specialty Start Date End Date Ted Pearl MD [address] [place] [address] [email or web address] PCP - General Internal Medicine 12/18/19 04/21/25 Win Reyes PA-C [address] [place] [address] [email or web address] PCP - General Physician Radio Control Crane Operator 04/22/25 Sterling Ware MD [address] [place] [address] [email or web address] Dermatology 12/20/19 Tyrel Amaya MD [address] [place] [address] [place] [address] Pulmonary Disease 02/17/20 Andrzej Garland MD [address] [place] [address] [place] [address] Ophthalmology 04/07/20 documented as of this encounter Additional Source Comments The information contained in this document represents components of the legal health record. It is not the complete legal health record.[facility]
--- OUTSIDE RECORDS SUMMARY | 2025-06-17 08:51 | XMS_ITS | Encounter Summary ---
Author Organization [facility] Address [address] [place] [address] Phone Care Team Providers Care Dental Financial Coordinator Name Role Phone Sterling Ware MD Unavailable [phone] Tyrel Amaya MD Unavailable [phone] Andrzej Garland MD Unavailable [phone] Win Reyes PA-C Primary Care Provider Reason for Visit * Reason Onset Date Comments TCM Visit 06/16/2025 Encounter Details Date Type Department Care Team (Late st Contact Info) Description 06/16/2025 Telephone [employer] [facility] Internal Medicine [address] [place], [place] [phone] Constance Scherer, RN [address] [place], [place] [phone] [email or web address] TCM Visit Social History Tobacco Use Types Packs/Day Years [...] as of this encounter Progress Notes * Mar Nunez RN - 06/17/2025 8:09 AM EST Post Discharge Summary: Post discharge call documentation: Is a post discharge call required?: Yes Please indicate post discharge status: 1st attempt not reached General: Discharge information: Admit date: 06/13/25 Discharge date: 06/15/25 Discharge from: [facility] Reason for hospitalization: Pneumonia Safety and self care: Assistive devices/equipment and home services: Medication review: Follow up/conclusion: Was a follow up appointment scheduled with the patient's PCP office?: Yes Date of next appointment with the PCP: 06/23/25 * Leon Gomez - 06/16/2025 5:19 PM EST Spoke to Ray who states he was at [facility] for 06/13-06/15 for pneumonia. Scheduled 05/23 at 10:40 with Win. To RN: Med Rec * Constance Scherer RN - 06/16/2025 5:11 PM EST Pt called and LVM. States he was seen at [facility] for pneumonia again. He needs a follow up visit with PCP. documented in this encounter Plan of Treatment Upcoming Encounters Date Type Department Care Team (Late st Contact Info) Description 06/23/2025 10:40 AM EST Office Visit [facility] Internal Medicine [address] [place] [address] Win Reyes PA-C [address] [place] [address] [email or web address] 09/11/2025 7:20 AM EST Office Visit [facility] Internal Medicine [address] [place] [address] Win Reyes PA-C [address] [place] [address] 12/10/2025 8:00 AM EDT Office Visit [facility] Rheumatology [address] [place] [address] Edie Pina MD [address] [facility], [address] [place] [address] [email or web address] documented as of this encounter Visit Diagnoses Not on filedocumented in this encounter Additional Health Concerns Assessment Noted Time PHQ-2 Depression Total Score: 0 06/04/20 25 5:11 PM EDT documented as of this encounter Care Teams Dental Financial Coordinator Relationship Specialty Start Date End Date Win Reyes PA-C [address] [place] [address] [email or web address] PCP - General Physician Manager Dialysis 04/22/25 Sterling Ware MD [email or web address] Dermatology 12/20/19 Tyrel Amaya MD [address] [place] [address] [place] [address] Pulmonary Disease 02/17/20 Andrzej Garland MD [address] [place] [address] [place] [address] Ophthalmology 04/07/20 documented as of this encounter Additional Source Comments The information contained in this document represents components of the legal health record. It is not the complete legal health record.[facility]
--- OUTSIDE RECORDS SUMMARY | 2025-06-17 08:51 | XMS_ITS | Encounter Summary ---
Author Organization [facility] Address [address] [place] [address] Phone Care Team Providers Care Claims Configuration Analyst Name Role Phone Sterling Ware MD Unavailable [phone] Tyrel Amaya MD Unavailable Andrzej Garland MD Unavailable [phone] Win Reyes PA-C Primary Care Provider [phone] Encounter Details Date Type Department Care Team (Late st Contact Info) Description 05/26/2025 Orders Only [facility] Internal Medicine [address] [place] [address] Provider, MD Chanell [address] [place] [address] Social History Tobacco Use Types Packs/Day [...] Description 06/23/2025 10:40 AM EST Office Visit [facility] [address] [place] [address] Win Reyes PA-C [address] [place], [place] 09/11/2025 7:20 AM EST Office Visit [facility] Internal Medicine [address] [place], [place] [phone] Win Reyes PA-C [address] [place], [place] 12/10/2025 8:00 AM EDT Office Visit [facility] Rheumatology [address] [place] [address] Edie Pina MD [address] [place] [address], [address] [place] [address] [email or web address] documented as of this encounter Procedures Procedure Name Priority Date/Time Associated Diagnosis Comments OUTSIDE IMAGING Routine 05/26/2025 5:11 PM EDT documented in this encounter Results * Outside Imaging Report Only (05/26/2025 5:11 PM EDT) us Historical Provider MD TELLES XR CHEST Final Res ult documented in this encounter Visit Diagnoses Not on filedocumented in this encounter Additional Health Concerns Assessment Noted Time PHQ-2 Depression Total Score: 0 04/15/20 25 5:22 PM EDT documented as of this encounter Care Teams Claims Configuration Analyst Relationship Specialty Start Date End Date Win Reyes PA-C [address] [place], [place] [email or web address] PCP - General Physician Screen Stretcher 04/22/25 Sterling Ware MD Dermatology 12/20/19 Tyrel Amaya MD [address] [place] [address] [place] [address] Pulmonary Disease 02/17/20 Andrzej Garland MD [address] [place] [address] [place] [address] Ophthalmology 04/07/20 documented as of this encounter Additional Source Comments The information contained in this document represents components of the legal health record. It is not the complete legal health record.[facility]
--- OUTSIDE RECORDS SUMMARY | 2025-06-17 08:51 | XMS_ITS | Encounter Summary ---
Author Organization [facility] Address [address] [place] [address] Phone Care Team Providers Care Servicing Rep Name Role Phone Ted Pearl MD Primary Care Provider [phone] Ted Pearl MD Unavailable [phone] Etienne Lindsey MD Unavailable Ted Pearl MD Unavailable [phone] Ted Pearl MD Primary Care Provider [phone] Sterling Ware MD Unavailable [phone] Tyrel Amaya MD Unavailable [phone] Andrzej Garland MD Unavailable [phone] Win Reyes PA-C Primary Care Provider [phone] Encounter Details Date Type Department Care Team (Latest Contact Info) Description 01/22/2018 Transcribe Orders [facility] Phleb Main [address] [place] [address] Anais Goncalves, SUPERVISOR ROLLING ROOM [address] [place] [address] . [email or web address] Fever, unspecified fever cause (Primary Dx) [...] Description 06/23/2025 10:40 AM EST Office Visit [facility] Internal Medicine [address] [place] [address] Win Reyes PA-C [address] [place] [address] 09/11/2025 7:20 AM EST Office Visit [facility] Internal Medicine [address] [place] [address] Win Reyes PA-C [address] [place] [address] [email or web address] 12/10/2025 8:00 AM EDT Office Visit [facility] Rheumatology [address] [place] [address] Edie Pina MD [address] [place] [address], [facility] [email or web address] [address] [place] [address] [email or web address] documented as of this encounter Visit Diagnoses Diagnosis Fever, unspecified fever cause- Primary documented in this encounter Additional Health Concerns Infection Onset Date Last Indicated Resolved Time CoV-Risk 12/23/2019 12/23/2019 01/06/2020 1:24 AM EDT COVID-19 09/19/2023 09/19/2023 10/10/2023 1:21 AM EST CoV-Risk 11/07/2024 11/07/2024 11/18/2024 1:21 AM EDT documented as of this encounter Care Teams Servicing Rep Relationship Specialty Start Date End Date Ted Pearl MD [address] [place] [address] [email or web address] PCP - General Internal Medicine 09/05/17 12/17/19 Ted Pearl MD [address] [place] [address] [email or web address] PCP - General Internal Medicine 12/18/19 04/21/25 Win Reyes PA-C [address] [place] [address] [email or web address] PCP - General Physician Medical Historian 04/22/25 Ted Pearl MD [address] [place] [address] [email or web address] Insurance Assigned Provider 12/08/18 05/18/19 Etienne Lindsey MD [address] [place] [address] [email or web address] Insurance Assigned Provider 05/18/19 06/08/19 Ted Pearl MD [address] [place] [address] [email or web address] Insurance Assigned Provider 06/08/19 10/11/19 Sterling Ware MD [address] [place] [address] [email or web address] Dermatology 12/20/19 Tyrel Amaya MD [address] [place] [address] [place] [address] Pulmonary Disease 02/17/20 Andrzej Garland MD [address] [place] [address] Dr [place], [place] [address] Ophthalmology 04/07/20 documented as of this encounter Additional Source Comments The information contained in this document represents components of the legal health record. It is not the complete legal health record.[facility]
--- OUTSIDE RECORDS SUMMARY | 2025-06-17 08:52 | XMS_ITS | Encounter Summary ---
Author Organization [facility] Address [address] [place] [address] Phone Care Team Providers Care Neuroscience Specialist Name Role Phone Sterling Ware MD Unavailable [phone] Tyrel Amaya MD Unavailable Andrzej Garland MD Unavailable [phone] Win Reyes PA-C Primary Care Provider [phone] Reason for Referral * MRI/CAT Scan - Closed Specialty Diagnoses / Procedures Referred By Contac t Referred To Contact Radiology Procedures Outside CT Chest Report Only [facility] Internal Medicine [address] [place] [address] Phone: tel: fax: Referral ID Status Reason Start Date Expiration Date Visits Re quested Visits Authorized [id number] Closed 05/23/2025 1 1 Encounter Details Date Type Department Care Team (Late st Contact Info) Description 05/23/2025 Orders Only [facility] Internal Medicine [address] [place] [address] Chanell Taylor MD [address] [place] [address] Social History Tobacco Use Types Packs/Day [...] Description 06/23/2025 10:40 AM EST Office Visit [facility] Internal Medicine [address] [place] [address] Win Reyes PA-C [address] [place] [address] 09/11/2025 7:20 AM EST Office Visit [facility] Internal Medicine [address] [place] [address] Win Reyes PA-C [address] [place] [address] [email or web address] 12/10/2025 8:00 AM EDT Office Visit [facility] Rheumatology [address] [place] [address] Edie Pina MD [address] [place] [address], [address] [place] [address] [email or web address] documented as of this encounter Procedures [...] documented as of this encounter Care Teams Neuroscience Specialist Relationship Specialty Start Date End Date Win Reyes PA-C [address] [place] [address] [email or web address] PCP - General Physician Examining Chair Assembler 04/22/25 Sterling Ware MD Dermatology 12/20/19 Tyrel Amaya MD [address] [place] [address] [place] [address] Pulmonary Disease 02/17/20 Andrzej Garland MD [address] [place] [address] [place] [address] Ophthalmology 04/07/20 documented as of this encounter Additional Source Comments The information contained in this document represents components of the legal health record. It is not the complete legal health record.[facility]
--- OUTSIDE RECORDS SUMMARY | 2025-06-17 08:52 | XMS_ITS | Encounter Summary ---
Author Organization [facility] Address [address] [place] [address] Phone Care Team Providers Care Internet And E Business Project Manager Name Role Phone Ted Pearl MD Primary Care Provider [phone] Sterling Ware MD Unavailable [phone] Tyrel Amaya MD Unavailable [phone] Andrzej Garland MD Unavailable [phone] Win Reyes PA-C Primary Care Provider [phone] Encounter Details Date Type Department Care Team (Latest Contact Info) Description 01/30/2025 Ancillary Orders [facility] Internal Medicine [address] [place], [place] [phone] Win Reyes PA-C [address] [place], [place] [phone] [email or web address] Fever, unspecified (Primary Dx) Social History Tobacco [...] Description 06/23/2025 10:40 AM EST Office Visit [facility] Internal Medicine [address] [place] [address] Win Reyes PA-C [address] [place], [place] [email or web address] 09/11/2025 7:20 AM EST Office Visit [facility] Internal Medicine [address] [place], [place] [phone] Win Reyes PA-C [address] [place], [place] 12/10/2025 8:00 AM EDT Office Visit [facility] Rheumatology [address] [place] [address] Edie Pina MD [address] [place] [address], [address] [place] [address] [email or web address] documented as of this encounter Visit Diagnoses Diagnosis Fever, unspecified- Primary documented in this encounter Additional Health Concerns Assessment Noted Time PHQ-2 Depression Total Score: 0 12/14/19 25 2:46 PM EDT documented as of this encounter Care Teams Internet And E Business Project Manager Relationship Specialty Start Date End Date Ted Pearl MD [address] [place] [address] [email or web address] PCP - General Internal Medicine 12/18/19 04/21/25 Win Reyes PA-C [address] [place] [address] PCP - General Physician Bliss Press Operator 04/22/25 Sterling Ware MD [address] [place] [address] [email or web address] Dermatology 12/20/19 Tyrel Amaya MD [address] [place] [address] [place] [address] Pulmonary Disease 02/17/20 Andrzej Garland MD [address] [place] [address] [place] [address] Ophthalmology 04/07/20 documented as of this encounter Additional Source Comments The information contained in this document represents components of the legal health record. It is not the complete legal health record.[facility]
--- OUTSIDE RECORDS SUMMARY | 2025-06-17 08:52 | XMS_ITS | Encounter Summary ---
Author Organization [facility] Address [address] [place] [address] Phone Care Team Providers Care Conditioning Room Worker Name Role Phone Sterling Ware MD Unavailable [phone] Tyrel Amaya MD Unavailable Andrzej Garland MD Unavailable [phone] Win Reyes PA-C Primary Care Provider [phone] Encounter Details Date Type Department Care Team (Late st Contact Info) Description 06/16/2025 Orders Only [facility] Medicine [address] [place] [address] Provider, MD Chanell [address] [place] [address] Social History Tobacco Use Types Packs/Day [...] EST Office Visit [facility] [place] [address] Win Reyes PA-C [address] [place], [place] 09/11/2025 7:20 AM EST Office Visit [facility] Internal Medicine [address] [place], [place] [phone] Win Reyes PA-C [address] [place], [place] 12/10/2025 8:00 AM EDT Office Visit [facility] Rheumatology [address] [place] [address] Edie Pina MD [address] [place] [address], [address] [place] [address] [email or web address] documented as of this encounter Procedures Procedure Name Priority Date/Time Associated Diagnosis Comments OUTSIDE IMAGING Routine 06/14/2025 9:16 AM EST OUTSIDE XR CHEST REPORT ONLY Routine 06/14/2025 7:55 AM EST documented in this encounter Results * Outside Imaging Report Only (06/14/2025 9:16 AM EST) Historical Provider MD TELLES XR CHEST Final Res ult * Outside XR??Chest Report Only (06/14/2025 7:55 AM EST) Historical Provider MD TELLES XR CHEST Final Res ult documented in this encounter Visit Diagnoses Not on filedocumented in this encounter Additional Health Concerns Assessment Noted Time PHQ-2 Depression Total Score: 0 06/04/20 25 5:11 PM EDT documented as of this encounter Care Teams Conditioning Room Worker Relationship Specialty Start Date End Date Win Reyes PA-C [address] [place] [address] PCP - General Physician Mirror Framer 04/22/25 Sterling Ware MD [email or web address] Dermatology 12/20/19 Tyrel Amaya MD [address] [place] [address] [place] [address] Pulmonary Disease 02/17/20 Andrzej Garland MD [address] [place] [address] [place] [address] Ophthalmology 04/07/20 documented as of this encounter Additional Source Comments The information contained in this document represents components of the legal health record. It is not the complete legal health record.[facility]
--- OUTSIDE RECORDS SUMMARY | 2025-06-17 08:52 | XMS_ITS | Clinical Summary ---
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 A repeat magnesium level will be obtained [...] felt that it was not a true GA. 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 Follow-up as scheduled. Assessment & Plan (01/05/2024 11:05 AM EDT): Continue Creon as prescribed by dust mill operator. Get colonoscopy as scheduled on 10/11/2022 to make sure that last year tubulovillous polyp has not returned. Assessment & Plan (12/14/2022 9:04 AM EDT): Continue Creon as prescribed by dust mill operator. Get colonoscopy as scheduled on 10/11/2022 to make sure that last year tubulovillous polyp has not returned. Assessment & Plan (08/13/2022 5:10 PM EST): Continue Creon as prescribed by dust mill operator. Get colonoscopy as scheduled on 10/11/2022 to [...] starting Plaquenil again and follow instructions flow physician relations representative. Daily sun protection all year round while on Plaquenil. Assessment & Plan (01/10/2025 8:36 AM EDT): Take carefully as prescribed. Arrange for ophthalmologic checkup within 12 months since starting Plaquenil again and follow instructions flow physician relations representative. Daily sun protection all year round while on Plaquenil. Assessment & Plan (09/06/2024 9:03 AM EST): Take carefully as prescribed. Arrange for ophthalmologic checkup within 12 months since starting Plaquenil again and follow instructions flow physician relations representative. Daily sun protection all year round while on Plaquenil. Assessment & Plan (05/06/2024 10:49 AM EDT): Take carefully as prescribed. Arrange for ophthalmologic checkup within 12 months since starting Plaquenil again and follow instructions flow physician relations representative. Daily sun protection all year round while on Plaquenil. Assessment & Plan (01/05/2024 11:05 AM EDT): Take carefully as prescribed. Arrange for ophthalmologic checkup within 12 months since starting Plaquenil again and follow instructions flow physician relations representative. Daily sun protection all year round while on Plaquenil. Assessment & Plan (12/14/2022 9:05 AM EDT): Take carefully as prescribed. Arrange for ophthalmologic checkup within 12 months since starting Plaquenil again and follow instructions flow physician relations representative. Daily sun protection all year round while on Plaquenil. Assessment & Plan (08/11/2022 8:11 AM EST): Take carefully as prescribed. Arrange for ophthalmologic checkup within 12 months since starting Plaquenil again and follow instructions flow physician relations representative. Daily sun protection all year round while on Plaquenil. Assessment & Plan (04/13/2022 10:02 AM EDT): Take carefully as prescribed. Arrange for ophthalmologic checkup within 12 months since starting Plaquenil again and follow instructions flow physician relations representative. Daily sun protection all year round while on Plaquenil. Assessment & Plan (12/19/2021 5:12 PM EDT): Take carefully as prescribed. Arrange for ophthalmologic checkup within 12 months since starting Plaquenil again and follow instructions flow physician relations representative. Daily sun protection all year round while [...] mg twice a day. Follows up with tallow pumper every six months and sees an eye [...] [facility] with Dr. Luly Fisher Vitamin D insufficiency [...] current medication regimen and follow up with dust mill operator as scheduled. Assessment & Plan (01/10/2025 8:36 [...] 6:44 PM EDT): Patient recently admitted at [facility] from 05/23/2025 through 05/25/2025 for pneumonia. [...] does have a follow-up scheduled with his paper handler in June 2025. -Also placed lab orders to include an IgA, IgG and IgE for further evaluation as the patient continues to have episodes of pneumonia and illnesses. 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 Other pneumonia, unspecified organism 10/16/2017 12/25/2017 Encounters Date Type Department Care Team Description 06/16/2025 Telephone [facility] Internal Medicine [address] [place] [address] Constance Scherer RN TCM Visit 06/16/2025 Orders Only [facility] Internal Medicine [address] [place] [address] Provider, MD Chanell 06/12/2025 9:00 AM EST Office Visit [facility] Rheumatology [address] [place] [address] Edie Pina MD Lupus erythematosus tumidus (Primary Dx); Primary osteoarthritis of both knees; Raynaud's phenomenon without gangrene; Gastroesophageal reflux disease with esophagitis without hemorrhage; Long-term use of Plaquenil; On statin therapy 06/11/2025 7:20 AM EST Office Visit [facility] Internal [facility] [address] [address] Win Reyes PA-C Routine general medical examination at a health care facility (Primary Dx); NSTEMI (non-ST elevated myocardial infarction); Lupus erythematosus tumidus; Gastroesophageal reflux disease with esophagitis without hemorrhage; Pure hypercholesterolemia; Benign essential hypertension; Chronic obstructive pulmonary disease, unspecified COPD type; Prostate cancer screening 05/29/2025 9:40 AM EDT Office Visit [facility] [address] [facility] [place] [address] Win Reyes PA-C Hypomagnesemia (Primary Dx); Other pneumonia, unspecified organism 05/29/2025 8:22 AM EDT - 05/29/2025 11:59 PM EDT Hospital Encounter [facility] [address] [place] [address] Win Reyes PA-C Discharge Disposition: Home or Self Care 05/26/2025 Orders Only [facility] Internal [facility] [address] [place] [address] Chanell Taylor MD 05/26/2025 Documentation [facility] Internal [facility] [address] [facility] [place] [address] Win Reyes PA-C 05/26/2025 Telephone [facility] Internal [facility] [address] [place] [address] Constance Scherer, MAYNOR TCM Visit 05/23/2025 Orders Only [facility] [address] [facility] [place] [id number] Chanell Taylor MD 05/05/2025 Telephone [facility] Internal [facility] [address] [place] [address] Constance SchererMAYNORtrust vault custodian Refill 05/05/2025 Refill [facility] Internal Medicine [address] [place] [address] Win Reyes PA-C Medication Refill 04/22/2025 9:00 AM EDT Office Visit [facility] Internal Medicine [address] [place] [address] Win Reyes PA-C Chronic obstructive pulmonary disease, unspecified COPD type (Primary Dx); Routine general medical examination at a health care facility; Other pneumonia, unspecified organism; Benign essential hypertension; Pure hypercholesterolemia; Gastroesophageal reflux disease with esophagitis without hemorrhage; Lupus erythematosus tumidus; NSTEMI (non-ST elevated myocardial infarction) 03/31/2025 2:30 PM EDT Office Visit [facility]ology [address] [place] [address] [place] [address] Edie Pina MD Arthritis of knee, right (Primary Dx); 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; Lupus erythematosus tumidus 03/24/2025 10:00 AM EDT Office Visit [facility] [address] [place] [address] [place] [address] Edie Pina MD Arthritis of knee, right (Primary Dx); Lupus erythematosus tumidus; skilled nursing current use of aspirin 03/17/2025 8:30 AM EDT Office Visit [facility] [address] [place] [address] [place] [address] Edie Pina MD Primary osteoarthritis of both knees (Primary Dx); Lupus erythematosus tumidus; History of pneumonia from Last 3 Months Immunizations Immunization Administration Dates Next Due COVID-19 (Pre-05/29) Pfizer Vaccine, mRNA, PF 10/24/2020,10/03/2020 INFLUENZA, SPLIT VIRUS, TRIVALENT PF 12/2019,05/11/2017,05/11/2016,04/29,08/23/2012 INFLUENZA, SPLIT VIRUS, TRIV ALENT W/ PRESERVATIVE IM 05/11/2016,04/21/2015,05/15/2013,08/23 Influenza High-Dose Quadriva lent Preservative Free IM 05/06/2022 Influenza High-Dose Trivalen t Preservative Free IM 06/13/2025,04/25/2024 Influenza Quadrivalent Adjuv anted Preservative Free IM [...] 10:40 AM EST Office Visit [facility] Internal Medicine [address] [place] [address] Win Reyes PA-C [address] [place] [address] 09/11/2025 7:20 AM EST Office Visit [facility] Internal Medicine [address] [place] [address] Win Reyes PA-C [address] [place] [address] [email or web address] 12/10/2025 8:00 AM EDT Office Visit [facility] [address] [place] [address] Edie Pina MD [address] [facility], [address] [place], [place] [id number] [email or web address] Health Maintenance Due Date Last Done Comments COLOGUARD 1999 FOBT 1999 SIGMOIDOSCOPY 1999 VIRTUAL COLONOSCOPY 1999 FIT TEST 05/26/2022 05/26/2021 BLOOD PRESSURE 12/10/2025 06/12/2025 COVID-19 VACCINE ( season) 2025 06/13/2025, 04/25/2024, 05/02/2023, Additional history exists LUNG CANCER SCREENING (LDCT Only) 05/29/2026 05/29/2025, [...] 11/15/2021, 09/07, 12/27/2016 RSV VACCINE Completed 06/14/2023 INFLUENZA VACCINE Completed 06/13/2025, , 05/02/2023, Additional history exists HEPATITIS A VACCINES Aged Out No long [...] REPORT ONLY Routine 06/14/2025 7:55 AM EST CBC AND DIFFERENTIAL Routine 06/12/2025 11:49 AM EST Lupus erythematosus tumidus Long-term use of Plaquenil PSA DIAGNOSTIC (MONITORING) Routine 06/12/2025 11:49 AM EST Prostate cancer screening IMMUNOGLOBULIN E, TOTAL Routine 06/12/2025 11:49 AM EST Other pneumonia, unspecified organism MAGNESIUM Routine 06/12/2025 11:49 AM EST Hypomagnesemia [...] AM EDT Rout[facility] TSH WITH REFLEX Routine 05/29/2025 8:22 AM EDT Rout[facility] GLUCOSE, FASTING Routine 05/29/2025 8:22 AM EDT Routine general medical examination at a [facility] COMPREHENSIVE METABOLIC PANEL (CMP) Routine 05/29/2025 8:22 AM EDT Routine general medical examination at a [facility] OUTSIDE IMAGING Routine 05/26/2025 5:11 PM EDT OUTSIDE XR CHEST REPORT ONLY Routine 05/23/2025 10:[address] CHEST REPORT ONLY Routine 05/23/2025 10:54 AM EDT OUTSIDE POTASSIUM LEVEL Routine 05/23/2025 OUTSIDE ALT LEVEL Routine 05/23/2025 OUTSIDE SERUM CREATININE LEVEL Routine 05/23/2025 COLONOSCOPY FOR RESULT ENTRY ONLY Routine 02/19/2024 [...] Relevant to Health Maintenance Results * Outside Imaging Report Only (06/14/2025 9:16 AM EST) us Historical Provider MD TELLES XR CHEST Final Res ult * Outside XR??Chest Report Only (06/14/2025 7:55 AM EST) us Historical Provider MD TELLES XR CHEST Final Res ult * Immunoglobulin E, Total (06/12/2025 11:49 AM EST) Immunoglobulin E, Total 11 0 - 100 IU/ml 06/14/2025 2:55 PM EST [facility] Blood 06/12/2025 11:4 9 AM EST 06/12/2025 11:49 AM EST Narrative [facility] - 06/14/2025 2:55 PM EST Some individuals with allergies have low total IgE but high concentration of allergen-specific IgE and may even suffer anaphylaxis with low to undetectable concentrations of IgE or allergen-specific IgE antibodies. us Win Reyes PA-C LAB BLOOD BKR ORDERABLES Joi schwartz Result [address] [address] * (ABNORMAL) Comprehensive Metabolic Panel (CMP) (06/12/2025 11:49 AM EST) Only the most recent of2 resultswithin the time period is included. Pathologist [facility] Sodium 141 136 - 145 mmol/L 06/12/2025 9:02 PM [facility] Potassium 4.1 3.4 - 5.1 mmol/L 06/12/2025 9:02 PM [facility] Chloride 103 98 - 107 mmol/L 06/12/2025 9:02 PM [facility] CO2 25 20 - 31 mmol/L 06/12/2025 9:02 PM [facility] Anion Gap 13 3 - 17 mmol/L 06/12/2025 9:02 PM [facility] BUN 9 6 - 23 mg/dL 06/12/2025 9:02 PM [facility] Creatinine 0.90 0.60 - 1.30 mg/dL 06/12/2025 9:02 PM [facility] eGFR 91 >59 mL/min/1.7 3m2 06/12/2025 9:02 PM [facility] Comment:Estimated glomerular filtration rate calculated using the CKD-EPI refit equation. Glucose 156(H) 70 - 99 mg/dL 06/12/2025 9:02 PM [facility] Calcium 9.6 8.5 - 10.5 mg/dL 06/12/2025 9:02 PM [facility] AST 28 <40 U/L 06/12/2025 9:02 PM [facility] ALT 23 <50 U/L 06/12/2025 9:02 PM [facility] Alkaline Phosphatase 91 40 - 130 U/L 06/12/2025 9:02 PM [facility] Bilirubin, Total 0.9 0.0 - 1.2 mg/dL 06/12/2025 9:02 PM [facility] Total Protein 6.5 6.4 - 8.3 g/dL 06/12/2025 9:02 PM [facility] Albumin 4.0 3.5 - 5.2 g/dL 06/12/2025 9:02 PM [facility] Globulin 2.5 1.9 - 4.1 g/dL 06/12/2025 9:02 PM [facility] Blood 06/12/2025 11:4 9 AM EST 06/12/2025 11:49 AM EST us Edie Pina MD LAB BLOOD BKR ORDERABLES Final Result [address] [id number] * Prostate Specific Antigen (PSA), Monitoring (06/12/2025 11:49 AM EST) PSA Monitoring 1.60 ng/mL 06/12/2025 9:07 PM [facility] Comment:Post radical prostat ectomy results should be <0.1 ng/mL. Post therapy for other types of treatment should be <1.0 ng/mL. Blood (Blood) Venipuncture / Unknown 06/12/2025 11:49 AM EST 06/12/2025 11:49 AM EST Narrative [facility] - 06/12/2025 9:07 PM EST Test performed by Efrain electrochemiluminescent immunoassay (ECLIA). Results obtained by assays using different manufacturers or methods may not be comparable and cannot be used interchangeably for patient monitoring. us Win Reyes PA-C LAB BLOOD BKR ORDERABLES Joi lana Result [facility] [address] [place] [address] * (ABNORMAL) CBC and Differential (06/12/2025 11:49 AM EST) WBC 9.09 4.00 - 11.00 K/uL 06/12/2025 8:45 PM [facility] RBC 3.98(L) 4.50 - 5.90 M/uL 06/12/2025 8:45 PM [facility] Hemoglobin 12.1(L) 13.5 - 17.5 g/dL 06/12/2025 8:45 PM [facility] Hematocrit 37.4(L) 41.0 - 53.0 % 06/12/2025 8:45 PM [facility] MCV 94.0 80.0 - 100.0 fL 06/12/2025 8:45 PM [facility] MCH 30.4 27.0 - 31.0 pg 06/12/2025 8:45 PM [facility] MCHC 32.4 32.0 - 36.0 g/dL 06/12/2025 8:45 PM [facility] MPV 9.2 8.4 - 12.0 fL 06/12/2025 8:45 PM [facility] RDW-CV 13.8 11.5 - 14.5 % 06/12/2025 8:45 PM [facility] PLT 278 150 - 450 K/uL 06/12/2025 8:45 PM [facility] Neutrophils 71.6 % 06/12/2025 8:45 PM [facility] Lymphocytes 18.2 % 06/12/2025 8:45 PM [facility] Monocytes 7.9 % 06/12/2025 8:45 PM [facility] Eosinophils 1.0 % 06/12/2025 8:45 PM [facility] Basophils 1.1 % 06/12/2025 8:45 PM [facility] Imm Grans 0.2 % 06/12/2025 8:45 PM [facility] NRBC 0.0 <=0.0 /100 WBCs 06/12/2025 8:45 PM [facility] Absolute Neutrophils 6.51 1.92 - 7.60 K/uL 06/12/2025 8:45 PM [facility] Absolute Lymphocytes 1.65 0.72 - 4.10 K/uL 06/12/2025 8:45 PM [facility] Absolute Monocytes 0.72 0.16 - 1.10 K/uL 06/12/2025 8:45 PM [facility] Absolute Eosinophils 0.09 0.00 - 0.50 K/uL 06/12/2025 8:45 PM [facility] Absolute Basophils 0.10 0.00 - 0.15 K/uL 06/12/2025 8:45 PM [facility] Absolute Imm Grans 0.02 0.00 - 0.09 K/uL 06/12/2025 8:45 PM [facility] Absolute NRBC 0.00 <=0.00 K cells/uL 06/12/2025 8:45 PM [facility] Absolute Neutrophils 6.51 1.92 - 7.60 K/uL 06/12/2025 8:45 PM [facility] Comment:Automated cell count . Manual ANC may differ if performed. Diff Type Auto 06/12/2025 8:45 PM [facility] Blood 06/12/2025 11:4 9 AM EST 06/12/2025 11:49 AM EST us Edie Pina MD LAB BLOOD BKR ORDERABLES Final Result [facility] [address] [place] [address] * Erythrocyte Sedimentation Rate (ESR) (06/12/2025 11:49 AM EST) Only the most recent of2 resultswithin the time period is included. ESR 11 0 - 20 mm/h 06/12/2025 9:18 PM [facility] Blood 06/12/2025 11:4 9 AM EST 06/12/2025 11:49 AM EST Narrative [facility] - 06/12/2025 9:18 PM EST Specimen was processed >6 hours from time of collection. Results may be falsely decreased. Recommend repeat with fresh sample, particularly for borderline results. us Edie Pina MD LAB BLOOD BKR ORDERABLES Final Result Performing Organization Address [facility]/ZIP Co de Phone Number [address] [address] * C-Reactive Protein (CRP) (06/12/2025 11:49 AM EST) Only the most recent of2 resultswithin the time period is included. C Reactive Protein 6.5 <10.0 mg/L 06/12/2025 9:02 PM [facility] Comment:NOTE: This reference range is for the evaluation of inflammation. Order CRP, High Sensitivity for cardiac risk status evaluation. Blood 06/12/2025 11:4 9 AM EST 06/12/2025 11:49 AM EST us Edie Pina MD LAB BLOOD BKR ORDERABLES Final Result Performing Organization Address [facility] Co de Phone Number [address] [address] * Magnesium (06/12/2025 11:49 AM EST) Magnesium 1.7 1.7 - 2.6 mg/dL 06/12/2025 9:02 PM EST [facility] Blood 06/12/2025 11:4 9 AM EST 06/12/2025 11:49 AM EST us Win Reyes PA-C LAB BLOOD BKR ORDERABLES Joi l Result Performing Organization Address City/[facility]/ZIP Co de Phone Number [address] [address] * Creatine Kinase (CK) (06/12/2025 11:49 AM EST) Only the most recent of2 resultswithin the time period is included. Creatine Kinase (CK) 56 39 - 308 U/L 06/12/2025 9:02 PM EST [facility] Blood 06/12/2025 11:4 9 AM EST 06/12/2025 11:49 AM EST us Edie Pina MD LAB BLOOD BKR ORDERABLES Final Result [address] [address] * Glucose, fasting (05/29/2025 8:22 AM EDT) Pathologist [facility] FASTING GLUCOSE 78 70 - 95 mg/dL [facility] Blood 05/29/2025 8:22 AM EDT 05/29/2025 8:28 AM EDT us Win Reyes PA-C LAB BLOOD BKR ORDERABLES Joi l Result Performing Organization Address [facility]/ZIP Co de Phone Number [address] [address] * TSH with reflex (05/29/2025 8:22 AM EDT) Pathologist [facility] TSH 1.37 0.27 - 4.20 uIU/mL [facility] Blood 05/29/2025 8:22 AM EDT 05/29/2025 8:28 AM EDT Win Reyes PA-C LAB BLOOD BKR ORDERABLES Joi l Result Performing Organization Address City/[facility]/ZIP Co de Phone Number [address] [address] * Double stranded DNA antibodies (05/29/2025 8:22 AM EDT) Pathologist [facility] ANTI DSDNA ANTIBODY Negative at 1:10 [facility] Comment: Edie Bradford M.D., Director Clinical Immunology Laboratory [id number] Normal: Negative at 1:10 To interpret a negative test for anti-elim ira or double stranded DNA antibodies in a [...] MD LAB BLOOD BKR ORDERABLES Final Result [address] [address] * (ABNORMAL) CBC and differential (05/29/2025 8:22 AM EDT) WBC 9.95 4.00 - 11.00 K/uL [facility] RBC 4.49(L) 4.50 - 5.90 M/uL [facility] HGB 13.6 13.5 - 17.5 g/dL [facility] HCT 42.1 41.0 - 53.0 % [facility] PLT 336 150 - 450 K/uL [facility] MCV 93.8 80.0 - 100.0 fL [facility] MCH 30.3 27.0 - 31.0 pg [facility] MCHC 32.3 32.0 - 36.0 g/dL [facility] RDW 13.0 11.5 - 14.5 % [facility] MPV 9.3 8.4 - 12.0 fL [facility] NRBC 0.00 0.00 /100 WBCs [facility] ABSOLUTE NRBC 0.00 0.00 K/uL [facility] DIFF METHOD Manual [facility] TOTAL CELLS COUNTED 100 [facility] NEUTS 72.0 48.0 - 76.0 % [facility] LYMPHS 20.0 18.0 - 41.0 % [facility] MONOS 6.0 4.0 - 11.0 % [facility] EOS 1.0 0.0 - 5.0 % [facility] MYELOS 1.0(H) 0 % [facility] ABSOLUTE NEUTS 7.16 1.92 - 7.60 K/uL [facility] ABSOLUTE LYMPHS 1.99 0.72 - 4.10 K/uL [facility] ABSOLUTE MONOS 0.60 0.16 - 1.10 K/uL [facility] ABSOLUTE EOS 0.10 0.00 - 0.50 K/uL [facility] ABSOLUTE MYELOS 0.10 K/uL [facility] ALAN CELLS PRESENT(A) None [facility] Blood 05/29/2025 8:22 AM EDT 05/29/2025 8:28 AM EDT us Edie Pina MD LAB BLOOD BKR ORDERABLES Final Result [facility] [address] [place] [address] * Complement C3 (05/29/2025 8:22 AM EDT) C3 152 81 - 157 mg/dl [facility] Blood 05/29/2025 8:22 AM EDT 05/29/2025 8:27 AM EDT us Edie Pina MD LAB BLOOD BKR ORDERABLES Final Result [address] [address] * (ABNORMAL) Complement C4 (05/29/2025 8:22 AM EDT) C4 51(H) 12 - 39 mg/dL [facility] Blood 05/29/2025 8:22 AM EDT 05/29/2025 8:27 AM EDT us Edie Pina MD LAB BLOOD BKR ORDERABLES Final Result [address] [address] * (ABNORMAL) Lipid panel (05/29/2025 8:22 AM EDT) HDL 54 mg/dL [facility] Comment: Interpretation <40 mg/dL: Low HDL cholesterol (major risk factor for CHD) Greater than or equal to 60 mg/dL: High HDL cholesterol ( negative risk factor for CHD) HDL - cholesterol is affected by a number of factors, e.g. smoking, excerise, hormones, sex and age. CHOLESTEROL 127 0 - 240 mg/dL [facility] TRIGLYCERIDES 67 30 - 160 mg/dL [facility] LDL 60 50 - 129 mg/dL [facility] Comment: LDL levels in terms of risk for coronary heart disease: <100 mg/dL: Optimal 100-129 mg/dL: Near or above optimal 130-159 mg/dL: Borderline high 160-189 mg/dL: High >190 mg/dL: Very High CARDIAC RISK RATIO 2.4(L) 3.4 - 5.0 C [facility] Blood 05/29/2025 8:22 AM EDT 05/29/2025 8:28 AM EDT Win Reyes PA-C LAB BLOOD BKR ORDERABLES Joi l Result [address] [address] * Outside Imaging Report Only (05/26/2025 5:11 [...] - External 1.01 0.8 - 1.3 mg/dL Result [facility] Provider LAB BLOOD ORDERABLES Joi l Result * Outside ALT Level (05/23/2025) ALT - External 27 5 - 30 U/L Result [facility] Provider LAB BLOOD ORDERABLES Joi l Result * COLONOSCOPY FOR RESULT ENTRY ONLY (02/19/2024) Colonoscopy 3 yr recall Result [facility] Provider HEALTH MAINTENANCE Final Result * CT [...] AM EST) HCV NON-REACTIV E NON-REACTI VE [facility] Blood 09/15/2021 7:26 AM EST 09/15/2021 7:39 AM EST us Edie Pina MD LAB BLOOD BKR ORDERABLES Final Result [address] [address] * US Abdominal Aortic Screening (06/01/2021 7:48 [...] arenonaneurysmal. IMPRESSION: Distal abdominal aortic ectasia-2.9 cm. us Ted Pearl MD [facility] US ABDOMEN Final Result * (ABNORMAL) Fecal immunochemical test x1 (FIT) (05/26/2021 7:23 PM EDT) Immuno Fecal Occult Positive(A ) Negative [facility] Stool (Stool) 05/26/2021 7:2 3 PM EDT 05/26/2021 7:26 PM EDT us Ted Pearl MD LAB BODY FLUIDS AND STOOL ORD ERABLES Final Result [address] [address] from Last 3 Months or Most Recently Relevant to Health Maintenance Insurance [facility] MEDICARE PPO BLUE REPLACEMENT [facility] MEDICARE PPO BLUE REPLACEMENT [facility] MEDICARE PPO BLUE REPLACEMENT [facility] MEDICARE PPO BLUE REPLACEMENT [facility] MEDICARE PPO BLUE REPLACEMENT [facility] MEDICARE PPO BLUE REPLACEMENT [facility] MEDICARE PPO BLUE REPLACEMENT [place] [address] MEDICARE PPO BLUE REPLACEMENT [place] [address] MEDICARE PPO BLUE REPLACEMENT Advance Directives For more information, please contact: [phone] (9AM - 5PM [facility] * Full Code (Latest Code Status on File) Date Activated Date Inactivated Comments 06/11/2025 7:54 AM Question Answer Comments Code Status Confirmed With: Patient Code Status Communicated To: PCP Care Teams 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 It is not the complete legal health record.[facility]
--- OUTSIDE RECORDS SUMMARY | 2025-06-17 08:52 | XMS_ITS | Encounter Summary ---
Author Organization [facility] Address [address] [address] Phone Care Team Providers Care Tool And Equipment Rental Clerk Name Role Phone Ted Pearl MD Primary Care Provider [phone] Sterling Ware MD Unavailable [phone] Tyrel Amaya MD Unavailable [phone] Andrzej Garland MD Unavailable [phone] Win Reyes PA-C Primary Care Provider [phone] Encounter Details Date Type Department Care Team (Late st Contact Info) Description 07/08/2022 Procedure [facility], Ct Scan - [address] [address] Social History Tobacco Use Types Packs/Day Years [...] high school, GED, job training, learning the [place] language, technical skills, or developing parenting skills)? [...] Description 06/23/2025 10:40 AM EST Office Visit [facility] Internal Medicine [address] [place] [address] Win Reyes PA-C [address] [place] [address] 09/11/2025 7:20 AM EST Office Visit [facility] Internal [facility] [address] [place] [address] Win Reyes PA-C [address] [place] [address] 12/10/2025 8:00 AM EDT Office Visit [facility] Rheumatology [address] [place] [address] Edie Pina MD [address] [facility], [address] [place] [address] [email or web address] documented as of this encounter Visit Diagnoses Not on filedocumented in this encounter Additional Health Concerns Infection Onset Date Last Indicated Resolved Time COVID-19 09/19/2023 09/19/2023 10/10/2023 1:21 AM EST CoV-Risk 11/07/2024 11/07/2024 11/18/2024 1:21 AM EDT Assessment Noted Time PHQ-2 Depression Total Score: 0 07/08/20 8:55 AM EST documented as of this encounter Care Teams Tool And Equipment Rental Clerk Relationship Specialty Start Date End Date Ted Pearl MD [address] [place] [address] [email or web address] PCP - General Internal Medicine 12/18/19 04/21/25 Win Reyes PA-C [address] [place] [email or web address] PCP - General Physician Piano Mechanic Apprentice 04/22/25 Sterling Ware MD [address] [place] [address] [email or web address] Dermatology 12/20/19 Tyrel Amaya MD [address] [place] [address] [place] [address] Pulmonary Disease 02/17/20 Andrzej Garland MD [address] [place] [address] [place] [address] Ophthalmology 04/07/20 documented as of this encounter Additional Source Comments The information contained in this document represents components of the legal health record. It is not the complete legal health record.[facility]
[2025-06-17 09:48] VITALS: PULSE 59; O2SAT 96
== END 2025-06-17 09:52 | disposition home or self-care (01) ==
PROVIDERS: PCP Internal Medicine; Visit Provider Nurse Practitioner Family
DX: J18.9 Pneumonia, unspecified organism (principal); J44.9 Chronic obstructive pulmonary disease, unspecified; J43.9 Emphysema, unspecified; J98.6 Disorders of diaphragm; Z87.891 Personal history of nicotine dependence
CPT/HCPCS: 94618; 99214; G2211

== ENCOUNTER 2025-08-04 07:25 | Outpatient (REF) | payer MEDICARE, SELFPAY ==
--- OUTSIDE RECORDS SUMMARY | 2025-08-02 08:01 | XMS_ITS | Encounter Summary ---
Author Organization [facility] Address [address] [place] [address] Phone Care Team Providers Care Nut Feeder Name Role Phone Sterling Ware MD Unavailable [phone] Tyrel Amaya MD Unavailable [phone] Andrzej Garland MD Unavailable [phone] Wni Reyes PA-C Primary Care Provider [phone] Reason for Referral * MRI/CAT Scan - Closed Specialty Diagnoses / Procedures Referred By Priti lopez Referred To Contact Radiology Diagnoses Intractable abdominal pain Procedures CT Abdomen/Pelvis CHG CT SCAN,ABDOMENT AND PELVIS,W/O CONTRAST CHG CT SCAN,ABDOMENT AND PELVIS,W CONTRAST CHG CT SCAN,ABDOMENT AND PELVIS,Beto Simental MD [address] [place] [address] Phone: tel: fax: [email or web address] Referral ID Status Reason Start Date Expiration Date Visits Re quested Visits Authorized [id number] Closed 08/01/2025 10/26/2025 1 1 Reason for Visit * MRI/CAT Scan - Closed Specialty Diagnoses / Procedures Referred By Priti lopez Referred To Contact Radiology Diagnoses Intractable abdominal pain Procedures CT Abdomen/Pelvis CHG CT SCAN,ABDOMENT AND PELVIS,W/O CONTRAST CHG CT SCAN,ABDOMENT AND PELVIS,W CONTRAST CHG CT SCAN,ABDOMENT AND PELVIS,Beto Simental MD [address] [place] [address] Phone: tel: fax: mailto:[email or web address] Referral ID Status Reason Start Date Expiration Date Visits Re quested Visits Authorized [id number] Closed 08/01/2025 10/26/2025 1 1 Encounter Details Date Type Department Care Team (Latest Contact Info) Description 08/02/2025 8:01 AM EST - 08/02/2025 11:59 PM EST Hospital Encounter [facility], Ct Scan - [facility] [address] [place] [address] Beto Ball MD [address] [place] [address] [email or web address] Arrived Discharge Disposition: Home or Self Care Social History Tobacco Use Types Packs/Day Years [...] on file documented as of this encounter Medications at Time of Discharge acetaminophen (TYLENOL) 325 mg tablet Take by mouth. NEEDED 12/11/2024 albuterol 90 mcg/actuation inhaler Inhale 2 puffs into the lungs every 6 (six) hours as needed for shortness of breath/dyspnea . 18 g 3 12/27/2024 aspirin-caffeine (ANNE BACK AND BODY) 500-32.5 mg Tab Take by mouth. atenolol (TENORMIN) 50 mg tabletIndications:Be nign essential hypertension Take 1 tablet (50 mg total) by mouth every morning. 100 tablet 3 01/24/2025 atorvastatin (LIPITOR) 80 MG tabletIndications:Hy perlipidemia TAKE 1 TABLET BY MOUTH EVERY DAY 90 tablet 3 05/05/2025 ciprofloxacin HCl (CIPRO) 500 MG tablet Take 1 tablet (500 mg total) by mouth 2 (two) times a day for 10 days. 20 tablet 08/02/2025 dicyclomine (BENTYL) 20 mg tabletIndications:Ab dominal cramping Take 1 tablet (20 mg total) by mouth every 6 (six) hours. 120 tablet 1 07/30/2025 esomeprazole (NEXIUM) 40 MG capsule Take 40 mg by mouth nightly at bedtime. 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 180 tablet 3 06/12/2025 ipratropium-albutero L (DUONEB) 0.5-3 mg (2.5 mg base)/3 mL nebulizer solution INHALE 3 ML EVERY 6 HOURS NEEDED FOR WHEEZING NEEDED 06/17/2025 Lactobacillus acidophilus (PROBIOTIC ORAL) Take 1 capsule by mouth daily. losartan (COZAAR) 100 MG tabletIndications:Es sential hypertension TAKE 1 TABLET DAILY 90 tablet 07/18/2025 metroNIDAZOLE (FLAGYL) 500 MG tablet Take 1 tablet (500 mg total) by mouth 3 (three) times a day. 30 tablet 08/02/2025 MULTIVITAMIN ORAL Take 1 capsule by mouth daily. ondansetron (ZOFRAN-ODT) 4 MG disintegrating tablet Take 1 tablet (4 mg total) by mouth every 8 (eight) hours as needed for nausea. 30 tablet 08/02/2025 simethicone 125 mg CapIndications:Abdom inal cramping Take 1 capsule (125 mg total) by mouth 4 (four) times a day as needed (gassy distention). 28 capsule 07/24/2025 TRELEGY ELLIPTA 200-62.5-25 mcg inhaler Inhale 1 puff into the lungs daily. 07/12/2025 documented as of this encounter Plan of Treatment Upcoming Encounters Date Type Department Care Team (Late st Contact Info) Description 09/10/2025 8:40 AM EST Office Visit [facility] Primary Care Clinic [address] [place], [place] [phone] Win Reyes PA-C [address] [place], [place] [phone] 12/10/2025 8:00 AM EDT Office Visit [facility] Rheumatology Clinic [address] [place] [address] Edie Pina MD [address] [facility], [address] [place] [address] [email or web address] documented as of this encounter Procedures Procedure Name Priority Date/Time Associated Diagnosis Comments CT ABDOMEN/PELVIS WITH CONTRAST Urgent/patient waiting 08/02/2025 9:17 AM EST Intractable abdominal pain documented in this encounter Results * CT ABDOMEN/PELVIS WITH CONTRAST (08/02/2025 9:17 AM EST) Anatomical Region Laterality Modality Abdomen, Pelvis Computed Tomogra phy 08/02/2025 10:2 6 AM EST Impressions 08/02/2025 10:34 AM EST 1. Acute diverticulitis with circumferential colonic wall thickening involving the sigmoid colon and pericolonic inflammatory stranding. No evidence for abscess or free intraperitoneal gas. 2. GI consultation for follow-up advised to evaluate for complete resolution and to exclude underlying colonic lesion. Colonoscopy after resolution of symptoms and treatment recommended as clinically appropriate. 3. Small amount of free fluid in the pelvis. 4. No bowel obstruction, biliary ductal dilatation or hydronephrosis. Narrative 08/02/2025 10:[address] ABDOMEN/PELVIS WITH CONTRAST Referring clinician's provided indication for this examination in Epic: * Abdominal pain, acute, nonlocalized TECHNIQUE: Multidetector-row CT of the abdomen and pelvis was performed after administration of intravenous contrast using tailored dose modulation techniques. Images were reconstructed in the axial, coronal, and sagittal planes. COMPARISON: None available FINDINGS: Lower Chest: No acute abnormality. Liver: No focal lesions. Biliary: No biliary ductal dilatation. Spleen: No splenomegaly or focal lesions. Pancreas: No masses or ductal dilatation. Adrenal Glands: No nodules. Kidneys/Ureters: No hydronephrosis. Bilateral renal cysts. Bowel: No bowel obstruction. Colonic diverticulosis with circumferential colonic wall thickening in the sigmoid colon with pericolonic inflammatory stranding. Findings are consistent with acute diverticulitis, without abscess or free intraperitoneal gas. Peritoneum/Retroperitoneum: No free intraperitoneal gas or fluid collection. Small amount of free fluid in the pelvis. Lymph Nodes: No enlarged abdominal or pelvic lymph nodes. Pelvic Organs/Bladder: No mass. Vessels: Mild dilatation of the infrarenal abdominal aorta measuring up to 2.6 cm. Bones/Soft Tissues: Degenerative changes without destructive bone lesion. Procedure Note Cedric Sahni MD - 08/02/2025 CT ABDOMEN/PELVIS WITH CONTRAST Referring clinician's provided indication for this examination in Epic: *Abdominal pain, acute, nonlocalized TECHNIQUE: Multidetector-row CT of the abdomen and pelvis was performedafter administration of intravenous contrast using tailored dosemodulation techniques. Images were reconstructed in the axial, coronal,and sagittal planes. COMPARISON: None available FINDINGS: Lower Chest: No acute abnormality. Liver: No focal lesions. Biliary: No biliary ductal dilatation. Spleen: No splenomegaly or focal lesions. Pancreas: No masses or ductal dilatation. Adrenal Glands: No nodules. Kidneys/Ureters: No hydronephrosis. Bilateral renal cysts. Bowel: No bowel obstruction. Colonic diverticulosis with circumferential colonic wall thickening in thesigmoid colon with pericolonic inflammatory stranding. Findings areconsistent with acute diverticulitis, without abscess or freeintraperitoneal gas. Peritoneum/Retroperitoneum: No free intraperitoneal gas or fluidcollection. Small amount of free fluid in the pelvis. Lymph Nodes: No enlarged abdominal or pelvic lymph nodes. Pelvic Organs/Bladder: No mass. Vessels: Mild dilatation of the infrarenal abdominal aorta measuring up to2.6 cm. Bones/Soft Tissues: Degenerative changes without destructive bonelesion. IMPRESSION: 1. Acute diverticulitis with circumferential colonic wall thickeninginvolving the sigmoid colon and pericolonic inflammatory stranding. Noevidence for abscess or free intraperitoneal gas. 2. GI consultation for follow-up advised to evaluate for completeresolution and to exclude underlying colonic lesion. Colonoscopy afterresolution of symptoms and treatment recommended as clinicallyappropriate. 3. Small amount of free fluid in the pelvis. 4. No bowel obstruction, biliary ductal dilatation or hydronephrosis. Beto Ball MD IM CT ABD/PELVIS Final Result documented in this encounter Visit Diagnoses Diagnosis Intractable abdominal pain documented in this encounter Administered Medications Inactive Administered Medications - up to 3 most recent administrations Medication Order MAR Action Action Date Dose Rate Site iohexoL (OMNIPAQUE) 9 mg iodine/mL 500 mL 500 mL, Oral, Once as needed, pre procedure/treatment, Starting on 08/02/25 at 0814, For 1 dose, Procedural Contrast/Med Active Now, Administer 30 minutes prior to exam. Given 08/02/2025 8:10 AM EST 500 mL iohexoL (OMNIPAQUE-350) 350 mg iodine/mL solution 100 mL 100 mL, Intravenous, Once as needed, pre procedure/treatment, Starting on 08/02/25 at 0814, For 1 dose, Procedural Contrast/Med Active Now, Each mL contains 755 mg of iohexol equivalent to 350 mg of organic iodine. Given 08/02/2025 9:16 AM EST 100 mL documented in this encounter Additional Health Concerns Assessment Noted Time PHQ-2 Depression Total Score: 0 06/04/20 25 5:11 PM EDT documented as of this encounter Care Teams Nut Feeder Relationship Specialty Start Date End Date Win Reyes PA-C [address] [place] [address] PCP - General Physician Chef Teacher 04/22/25 Sterling Ware MD Dermatology 12/20/19 Tyrel Amaya MD [address] [place] [address] [place] [address] Pulmonary Disease 02/17/20 Andrzej Garland MD [address] [place] [address] [place] [address] Ophthalmology 04/07/20 documented as of this encounter Additional Source Comments The information contained in this document represents components of the legal health record. It is not the complete legal health record.[facility]
--- NOTE | ~2025-08-04 | CT_ITS ---
CLINICAL HISTORY: PNEUMONIA CT chest without contrast Comparison: 05/23/2025 Findings: The heart is normal size. The visualized thyroid and mediastinum are unremarkable. No new consolidation or effusion. There has been complete resolution of previously noted pulmonary consolidation There is diffusely abnormal appearance of visualized colon, possible colitis. The appearance of the liver suggests fatty infiltration The upper abdomen is otherwise unremarkable. No acute fractures. IMPRESSION: 1. No acute findings in the chest. 2. Possible colitis. Clinical follow-up recommended. 3. Hepatic steatosis This document has been electronically signed by: Toño Rocha MD on 08/04/2025 08:28:48
--- OUTSIDE RECORDS SUMMARY | 2025-08-04 07:28 | XMS_ITS | Encounter Summary ---
Author Organization [facility] Address [address] [place] [address] Phone Care Team Providers Care Claims Processor Name Role Phone Sterling Ware MD Unavailable [phone] Tyrel Amaya MD Unavailable Andrzej Garland MD Unavailable [phone] Win Reyes PA-C Primary Care Provider [phone] Reason for Visit * Reason Comments Med Change Request Encounter Details Date Type Department Care Team (Late st Contact Info) Description 08/02/2025 Refill [facility] Primary Care Clinic [address] [place], [place] [phone] Win Reyes PA-C [address] [place], [place] [phone] [email or web address] Med Change Request Social History Tobacco Use Types Packs/Day Years [...] Description 09/10/2025 8:40 AM EST Office Visit [facility] [address] [place] [address] Win Reyes PA-C [address] [place] [address] 12/10/2025 8:00 AM EDT Office Visit [facility] Rheumatology Clinic [address] [place] [address] Edie Pina MD 22 [facility], [address] [place] [address] [email or web address] documented as of this encounter Visit Diagnoses Not on filedocumented in this encounter Additional Health Concerns Assessment Noted Time PHQ-2 Depression Total Score: 0 06/04/20 25 5:11 PM EDT documented as of this encounter Care Teams Claims Processor Relationship Specialty Start Date End Date Win Reyes PA-C [address] [place] [address] PCP - General Physician Clinic Lpn 04/22/25 Sterling Ware MD Dermatology 12/20/19 Tyrel Amaya MD [address] [place] [address] [place] [address] Pulmonary Disease 02/17/20 Andrzej Garland MD [address] [place] [address] [place] [address] Ophthalmology 04/07/20 documented as of this encounter Additional Source Comments The information contained in this document represents components of the legal health record. It is not the complete legal health record.[facility]
--- OUTSIDE RECORDS SUMMARY | 2025-08-04 07:28 | XMS_ITS | Encounter Summary ---
Author Organization [facility] Address [address] [place] [address] [place] [address] Phone Care Team Providers Care Global Mobility Specialist Name Role Phone Sterling Ware MD Unavailable [phone] Tyrel Amaya MD Unavailable Andrzej Garland MD Unavailable [phone] Win Reyes PA-C Primary Care Provider [phone] Encounter Details Date Type Department Care Team (Late st Contact Info) Description 07/30/2025 Telephone [facility] Primary Care Clinic [address] [place], [place] [phone] Win Reyes PA-C [address] [place], [place] [phone] [email or web address] Social History Tobacco Use Types Packs/Day Years [...] Description 09/10/2025 8:40 AM EST Office Visit [facility] Primary Care Clinic [address] [place] [address] Win Reyes PA-C [address] [place] [address] 12/10/2025 8:00 AM EDT Office Visit [facility] Rheumatology Clinic [address] [place] [address] Edie Pina MD 22 [facility], [address] [place] [address] [email or web address] documented as of this encounter Visit Diagnoses Not on filedocumented in this encounter Additional Health Concerns Assessment Noted Time PHQ-2 Depression Total Score: 0 06/04/20 25 5:11 PM EDT documented as of this encounter Care Teams Global Mobility Specialist Relationship Specialty Start Date End Date Win Reyes PA-C [address] [place] [address] PCP - General Physician Agriculture Extension Specialist 04/22/25 Sterling Ware MD Dermatology 12/20/19 Tyrel Amaya MD [address] [place] [address] [place] [address] Pulmonary Disease 02/17/20 Andrzej Garland MD [address] [place] [address] [place] [address] Ophthalmology 04/07/20 documented as of this encounter Additional Source Comments The information contained in this document represents components of the legal health record. It is not the complete legal health record.[facility]
--- OUTSIDE RECORDS SUMMARY | 2025-08-04 07:28 | XMS_ITS | Encounter Summary ---
Author Organization [facility] Address [address] [place] [address] Phone Care Team Providers Care Highway Worker Name Role Phone Sterling Ware MD Unavailable [phone] Tyrel Amaya MD Unavailable [phone] Andrzej Garland MD Unavailable [phone] Win Reyes PA-C Primary Care Provider Reason for Visit * Reason Onset Date Comments Imaging Follow Up 07/30/2025 Encounter Details Date Type Department Care Team (Late st Contact Info) Description 07/30/2025 Telephone [facility] Primary Care Clinic [address] [place], [place] [phone] Win Reyes PA-C [address] [place], [place] [phone] [email or web address] Imaging Follow Up Social History Tobacco Use Types Packs/Day Years [...] as of this encounter Progress Notes * Hilaria Posey - 08/01/2025 9:02 AM EST Spoke to patient this morning - spoke to Dr Ball added internal CT order/urgent called and scheduled patient for 08-02-25 at 8:00am - spoke to patient is aware and appreciative * Ted Pearl MD - 07/30/2025 4:47 PM EST If pain worsens patient should be seen at ED. * Constance Scherer RN - 07/30/2025 2:28 PM EST Spoke to Ray, advised about medication. Advised we will call him back if we are able to get him into [facility] sooner for CT. He is aware that he can go to ED if pain worsening, will do a CT there. He is appreciative. * Leon Gomez - 07/30/2025 2:06 PM EST Patient is scheduled at [facility] for 08/05 at 11:30 per scheduling. * Constance Scherer RN - 07/30/2025 1:27 PM ESTAddended by: CONSTANCE SCHERER on: 07/30/2025 01:27 PM Modules accepted: Orders * Constance Scherer RN - 07/30/2025 1:22 PM EST Spoke to [facility] scheduling. They may be able to see him sooner, but will need internal order first. * Ted Pearl MD - 07/30/2025 1:00 PM EST Will send in 20 mg * Meg Fletcher PA-C - 07/30/2025 12:41 PM EST Sending to Dr. Pearl as he is POD. I don't see it documented anywhere about the increase in Bentyl dosage . * Constance Scherer, MAYNOR - 07/30/2025 12:34 PM EST Spoke to Hardy. He states Dr Ball increased the bentyl to 20mg. States the medication was not sent it. Also states the Urgent CT is scheduled 08/04. He has already had pain for 10 days. States he is willing to go to another facility if we can get him in sooner. * Debbie Marc - 07/30/2025 12:13 PM EST Pt called back and states he is not all set and needs to speak to a nurse about this, he also states he had an appointment yesterday and his 20 mg of dicyclomine did not get called in, please call [phone] * Adama Whelan - 07/30/2025 9:58 AM EST Made call to patient. He states he states he spoke with someone and this is all set. * Debbie Marc - 07/30/2025 8:49 AM EST Pt called back and states the phone cut out when giving his number to call please call [phone] * NaomileoChasidy - 07/30/2025 8:44 AM EST Pt called in regarding CT ordered 07/29/2025 pt advised this was pu in as PRABHU- pt called [facility] and they have not received this order to Schedule, please review and advise pt Central Support Supervisor Word Processing (Please do not reply to this user; this inbox is not monitored.) Thank you. documented in this encounter Plan of Treatment Upcoming Encounters Date Type Department Care Team (Late st Contact Info) Description 09/10/2025 8:40 AM EST Office Visit [facility] Primary Care Clinic [address] [place] [address] Win Reyes PA-C [address] [place] [email or web address] 12/10/2025 8:00 AM EDT Office Visit [facility] Rheumatology Clinic [address] [place] [address] Edie Pina MD [address] [place] [address], [address] [place] [address] [email or web address] documented as of this encounter Visit Diagnoses Diagnosis Intractable abdominal pain- Primary Abdominal cramping Abdominal pain, unspecified site Diarrhea documented in this encounter Additional Health Concerns Assessment Noted Time PHQ-2 Depression Total Score: 0 06/04/20 25 5:11 PM EDT documented as of this encounter Care Teams Highway Worker Relationship Specialty Start Date End Date Win Reyes PA-C [address] [place] [address] [email or web address] PCP - General Physician Spud Sorter 04/22/25 Sterling Ware MD Dermatology 12/20/19 Tyrel Amaya MD [address] [place] [address] [place] [address] Pulmonary Disease 02/17/20 Andrzej Garland MD [address] [place] [address] [place] [address] Ophthalmology 04/07/20 documented as of this encounter Additional Source Comments The information contained in this document represents components of the legal health record. It is not the complete legal health record.[facility]
--- OUTSIDE RECORDS SUMMARY | 2025-08-04 07:28 | XMS_ITS | Clinical Summary ---
Author Organization [facility] Address [address] [place] [id number] Phone Care Team Providers Care Clinical Quality Assurance Specialist Name Role Phone Sterling Ware MD Unavailable [phone] Tyrel Amaya MD Unavailable Andrzej Garland MD Unavailable [phone] Win Reyes PA-C Primary Care Provider [phone] Allergies Active Allergy Reactions Criticality Noted Date Comments Ibuprofen Other (See Comments),Swelling High 12/27/2016 Other reaction(s): Itchy hands, throat closing Other reaction(s): tongue swelling Other Reaction(s): tongue swelling Levofloxacin Other (See Comments) 11/19/2017 nightmares Lisinopril Cough 12/27/2016 Medications esomeprazole (NEXIUM) 40 MG capsule Take 40 mg by mouth nightly at bedtime. Active albuterol 90 mcg/actuation inhaler Inhale 2 puffs into the lungs every 6 (six) hours as needed for shortness of breath/dyspn ea. 18 g 3 12/28/19 25 Active atenolol (TENORMIN) 50 mg tabletIndications :Benign essential hypertension Take 1 tablet (50 mg total) by mouth every morning. 100 tablet 3 01/25/20 25 Active atorvastatin (LIPITOR) 80 MG tabletIndications :Hyperlipidemia TAKE 1 TABLET BY MOUTH EVERY DAY 90 tablet 3 05/05/20 25 Active MULTIVITAMIN ORAL Take 1 capsule by mouth daily. Active Lactobacillus acidophilus (PROBIOTIC ORAL) Take 1 capsule by mouth daily. Active acetaminophen (TYLENOL) 325 mg tablet Take by mouth. NEEDED 12/12/19 25 Active aspirin-caffeine (ANNE BACK AND BODY) 500-32.5 mg Tab Take by mouth. Active hydroxychloroquin e (PLAQUENIL) 200 mg tabletIndications :Lupus erythematosus tumidus Take 1 tablet (200 mg total) by mouth 2 (two) times a day. 180 tablet 3 06/12/20 25 Active losartan (COZAAR) 100 MG tabletIndications :Essential hypertension TAKE 1 TABLET DAILY 90 tablet 07/18/20 25 Active TRELEGY ELLIPTA 200-62.5-25 mcg inhaler Inhale 1 puff into the lungs daily. 07/12/20 25 Active ipratropium-albut Alf (DUONEB) 0.5-3 mg (2.5 mg base)/3 mL nebulizer solution INHALE 3 ML EVERY 6 HOURS NEEDED FOR WHEEZING NEEDED 06/17/20 25 Active simethicone 125 mg CapIndications:Ab dominal cramping Take 1 capsule (125 mg total) by mouth 4 (four) times a day as needed (gassy distention). 28 capsule 07/24/20 25 Active dicyclomine (BENTYL) 20 mg tabletIndications :Abdominal cramping Take 1 tablet (20 mg total) by mouth every 6 (six) hours. 120 tablet 1 07/30/20 25 Active ciprofloxacin HCl (CIPRO) 500 MG tablet Take 1 tablet (500 mg total) by mouth 2 (two) times a day for 10 days. 20 tablet 08/02/20 25 2025 Active metroNIDAZOLE (FLAGYL) 500 MG tablet Take 1 tablet (500 mg total) by mouth 3 (three) times a day. 30 tablet 08/02/20 25 Active ondansetron (ZOFRAN-ODT) 4 MG disintegrating tablet Take 1 tablet (4 mg total) by mouth every 8 (eight) hours as needed for nausea. 30 tablet 08/02/20 25 Active losartan (COZAAR) 100 MG tabletIndications :Essential hypertension TAKE 1 TABLET DAILY 90 tablet 3 07/30/20 24 2024 Discontinued BREO ELLIPTA 200-25 mcg/dose inhaler Inhale 1 puff into the lungs daily. 04/15/20 25 2024 Discontinued(N o longer taking) fluticasone-umecl idin-vilanter (TRELEGY ELLIPTA) 100-62.5-25 mcg inhalation powder Inhale 1 puff into the lungs daily. 2024 Discontinued(N o longer taking) dicyclomine (BENTYL) 10 MG capsuleIndication s:Abdominal cramping Take 1 capsule (10 mg total) by mouth 4 (four) times a day as needed (abdominal cramping). 30 capsule 1 07/24/20 25 2024 Discontinued Active Problems Problem Noted Date Diagnosed Date Intractable abdominal pain 07/24/2025 Assessment & Plan (07/29/2025 5:21 PM EST): Intractable abdominal pain persisting for several weeks with no relief. Could be diverticulitis or colitis, lets obtain a CT scan of the abdomen pelvis to further delineate. Because the pain is increasing the CT scan should be done urgently. To assess for signs of inflammation we will obtain to assess for signs of inflammation will obtain a CBC and a CRP. If those markers are high consider starting empirical treatment for diverticulitis. Assessment & Plan (07/24/2025 8:51 AM EST): This appears to be a GI virus that caused an enteritis for which there are still persisting symptoms but then also a head cold that was part of the virus symptoms. Possibly an adenovirus. Patient recommended to remain on a BRAT diet for another week. And we will write some Bentyl for the abdominal cramping and for the gassy distention simethicone. Take it 4 times a day as needed for both medicines. This will resolve itself over the next week especially with and easy diet. Acute respiratory failure 06/20/2025 Assessment & Plan (06/23/2025 11:00 AM EST): Due to pneumonia. Patient with a history of COPD not on supplemental O2 and pneumonia as with his last known pneumonia being 05/23 through 05/25 and was placed on IV antibiotics and sent home on oral antibiotics. Patient Susan presented to the emergency department after sudden onset of shortness of breath/wheezing along with cough and fever of 103 found to have pneumonia. Patient was given IV vancomycin and Zosyn during his hospital stay. 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 His IgA and IgG were negative. His IgE is 11. He was discharged home on Cefuroxime 500 mg p.o. twice daily for 4 days and doxycycline 100 mg p.o. twice daily for 4 days. Patient is doing better and completed the antibiotics Patient notes he does have a follow up with pulm but unsure when. They also ordered a nebulizer for home. I did recommend he speak to pulm regarding his low IgE and question if dupixant would be appropriate. Prostate cancer screening 06/11/2025 Assessment & Plan (06/11/2025 8:06 AM EST): Obtain PSA Hypomagnesemia 05/29/2025 Assessment & Plan (05/29/2025 6:45 PM EDT): Patient noted to have a low magnesium level well admitted to the hospital. He received 2 g of magnesium IV. He was sent home with magnesium oxide however his insurance did not cover this medication he is did receive it [id number]. A repeat magnesium level will be obtained [...] felt that it was not a true SD. Patient was placed on atorvastatin 80 mg [...] anesthesia I have injected 1st of 3 [id number] mg Synvisc vial into Right knee from [...] AM EDT): Continue Creon as prescribed by hydrographic surveyor. Follow-up as scheduled. Assessment & Plan (01/05/2024 11:05 AM EDT): Continue Creon as prescribed by hydrographic surveyor. Get colonoscopy as scheduled on 10/11/2022 to make sure that last year tubulovillous polyp has not returned. Assessment & Plan (12/14/2022 9:04 AM EDT): Continue Creon as prescribed by hydrographic surveyor. Get colonoscopy as scheduled on 10/11/2022 to make sure that last year tubulovillous polyp has not returned. Assessment & Plan (08/13/2022 5:10 PM EST): Continue Creon as prescribed by hydrographic surveyor. Get colonoscopy as scheduled on 10/11/2022 to [...] starting Plaquenil again and follow instructions flow mine motor engineer. Daily sun protection all year round while on Plaquenil. Assessment & Plan (01/10/2025 8:36 AM EDT): Take carefully as prescribed. Arrange for ophthalmologic checkup within 12 months since starting Plaquenil again and follow instructions flow mine motor engineer. Daily sun protection all year round while on Plaquenil. Assessment & Plan (09/06/2024 9:03 AM EST): Take carefully as prescribed. Arrange for ophthalmologic checkup within 12 months since starting Plaquenil again and follow instructions flow mine motor engineer. Daily sun protection all year round while on Plaquenil. Assessment & Plan (05/06/2024 10:49 AM EDT): Take carefully as prescribed. Arrange for ophthalmologic checkup within 12 months since starting Plaquenil again and follow instructions flow mine motor engineer. Daily sun protection all year round while on Plaquenil. Assessment & Plan (01/05/2024 11:05 AM EDT): Take carefully as prescribed. Arrange for ophthalmologic checkup within 12 months since starting Plaquenil again and follow instructions flow mine motor engineer. Daily sun protection all year round while on Plaquenil. Assessment & Plan (12/14/2022 9:05 AM EDT): Take carefully as prescribed. Arrange for ophthalmologic checkup within 12 months since starting Plaquenil again and follow instructions flow mine motor engineer. Daily sun protection all year round while on Plaquenil. Assessment & Plan (08/11/2022 8:11 AM EST): Take carefully as prescribed. Arrange for ophthalmologic checkup within 12 months since starting Plaquenil again and follow instructions flow mine motor engineer. Daily sun protection all year round while on Plaquenil. Assessment & Plan (04/13/2022 10:02 AM EDT): Take carefully as prescribed. Arrange for ophthalmologic checkup within 12 months since starting Plaquenil again and follow instructions flow mine motor engineer. Daily sun protection all year round while on Plaquenil. Assessment & Plan (12/19/2021 5:12 PM EDT): Take carefully as prescribed. Arrange for ophthalmologic checkup within 12 months since starting Plaquenil again and follow instructions flow mine motor engineer. Daily sun protection all year round while [...] may benefit from combined dermatology/rheumatology consult at [facility] with Dr. Luly Fisher Assessment & Plan (06/11/2025 8:06 AM EST): Feeling good on Hydroxychloroquine 200 mg twice a day. Follows up with ingot supervisor every six months and sees an eye [...] may benefit from combined dermatology/rheumatology consult at [facility] with Dr. Luly Fisher Assessment & Plan [...] may benefit from combined dermatology/rheumatology consult at [facility] with Dr. Luly Fisher Assessment & Plan [...] may benefit from combined dermatology/rheumatology consult at [facility] with Dr. Luly Fisher Assessment & Plan [...] may benefit from combined dermatology/rheumatology consult at [facility] with Dr. Luly Fisher Assessment & Plan [...] may benefit from combined dermatology/rheumatology consult at [facility] with Dr. Luly Fisher Assessment & Plan [...] may benefit from combined dermatology/rheumatology consult at [facility] with Dr. Luly Fisher Assessment & Plan [...] may benefit from combined dermatology/rheumatology consult at [facility] with Dr. Luly Fisher Assessment & Plan [...] may benefit from combined dermatology/rheumatology consult at [facility] with Dr. Luly Fisher Assessment & Plan [...] may benefit from combined dermatology/rheumatology consult at [facility] with Dr. Luly Fisher Assessment & Plan [...] may benefit from combined dermatology/rheumatology consult at [facility] with Dr. Luly Fisher if above regimen [...] may benefit from combined dermatology/rheumatology consult at [facility] with Dr. Luly Fisher Assessment & Plan [...] may benefit from combined dermatology/rheumatology consult at [facility] with Dr. Luly Fisher Assessment & Plan [...] may benefit from combined dermatology/rheumatology consult at [facility] with Dr. Luly Fisher Assessment & Plan [...] may benefit from combined dermatology/rheumatology consult at [facility] with Dr. Luly Fisher Assessment & Plan [...] may benefit from combined dermatology/rheumatology consult at [facility] with Dr. Luly Fisher Vitamin D insufficiency [...] current medication regimen and follow up with hydrographic surveyor as scheduled. Assessment & Plan (01/10/2025 8:36 [...] 6:44 PM EDT): Patient recently admitted at [facility] from 05/23/2025 through 05/25/2025 for pneumonia. [...] does have a follow-up scheduled with his typing teacher in June 2025. -Also placed lab orders to include an IgA, IgG and IgE for further evaluation as the patient continues to have episodes of pneumonia and illnesses. 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 Other pneumonia, unspecified organism 10/16/2017 12/25/2017 Encounters Date Type Department Care Team Description 08/02/2025 8:01 AM EST - 08/02/2025 11:59 PM EST Hospital Encounter [facility], Ct Scan - [address] [address] Beto Ball MD Arrived Discharge Disposition: Home or Self Care 08/02/2025 Refill [facility] [address] [place] [address] Win Reyes PA-C Med Change Request 08/01/2025 Procedure Pass [facility], Ct Scan - [facility] [address] [place] [address] 08/01/2025 Telephone [facility] [address] [place] [phone] Beto Ball MD 07/30/2025 Telephone [facility] [address] [place] [address] Win Reyes PA-C 07/30/2025 Telephone [facility] [address] [place] [address] Win Reyes PA-C Imaging Follow Up 07/29/2025 11:45 AM EST Office Visit [facility] [address] [place] [address] Beto Ball MD Intractable abdominal pain (Primary Dx); Diarrhea, unspecified type 07/24/2025 8:15 AM EST Office Visit [facility] [address] [place] [address] Beto Ball MD Abdominal cramping (Primary Dx) 07/22/2025 Telephone [facility] [address] [place] [address] Constance Scherer RN Abdominal Cramping 07/18/2025 Refill [facility] [address] [place] [address] Ted Pearl MD Medication Refill 06/23/2025 10:40 AM EST Office Visit [facility] [address] [place] [address] Win Reyes PA-C Acute respiratory failure with hypoxia (Primary Dx) 06/20/2025 Orders Only [facility] [address] [place] [address] Chanell Taylor MD 06/19/2025 Orders Only [facility] [address] [place] [address] Chanell Taylor MD 06/19/2025 Documentation [facility] [address] [facility] [place] [address] Win Reyes PA-C 06/18/2025 Orders Only [facility] [address] [facility] [place] [address] Chanell Taylor MD 06/16/[address] [place] [address] Constance Scherer RN TCM Visit 06/16/2025 Orders Only [address] [place] [address] ProviderChanell MD 06/12/2025 9:00 AM EST Office Visit [facility] [address] [place] [address] Edie Pina MD Lupus erythematosus tumidus (Primary Dx); Primary osteoarthritis of both knees; Raynaud's phenomenon without gangrene; Gastroesophageal reflux disease with esophagitis without hemorrhage; Long-term use of Plaquenil; On statin therapy 06/11/2025 7:20 AM EST Office Visit [address] [place] [address] Win Reyes PA-C Routine general medical examination at a health care facility (Primary Dx); NSTEMI (non-ST elevated myocardial infarction); Lupus erythematosus tumidus; Gastroesophageal reflux disease with esophagitis without hemorrhage; Pure hypercholesterolemia; Benign essential hypertension; Chronic obstructive pulmonary disease, unspecified COPD type; Prostate cancer screening 05/29/2025 9:40 AM EDT Office Visit [facility] [address] [facility] [place] [address] Win Reyes PA-C Hypomagnesemia (Primary Dx); Other pneumonia, unspecified organism 05/29/2025 8:22 AM EDT - 05/29/2025 11:59 PM EDT Hospital Encounter [facility] [address] [place] [address] Win Reyes PA-C Discharge Disposition: Home or Self Care 05/26/2025 Orders Only [facility] [address] [place] [address] ProviderChanell MD 05/26/2025 Documentation [facility] [address] [place] [address] Win Reyes PA-C 05/26/2025 Telephone [facility] [address] [place] [address] Constance Scherer, MAYNOR TCM Visit 05/23/2025 Orders Only [facility] [address] [place] [address] ProviderChanell MD 05/05/2025 Telephone [facility] [address] [place] [address] Constance Scherer, bellman captain Refill 05/05/2025 Refill [facility] [address], [place] [address] Win Reyes PA-C Medication Refill from Last 3 Months Immunizations Immunization Administration [...] Sign Reading Time Taken Comments Blood Pressure 108/64 07/29/2025 11:35 AM EST Pulse 72 07/29/2025 11:35 AM EST Temperature 36.2 C (97.2 F) 07/29/2025 11:35 AM EST Respiratory Rate 12 07/29/2025 11:3 5 AM EST Oxygen Saturation 96% 07/29/2025 11: 35 AM EST Inhaled Oxygen Concentration - - Weight 70.7 kg (155 lb 12.8 oz) 025 11:35 AM EST Height 169.3 cm (5' 6.65 ) 07/29/2025 1 1:35 AM EST Body Mass Index 24.66 07/29/2025 11:35 AM EST Plan of Treatment Upcoming Encounters Date Type Department Care Team (Late st Contact Info) Description 09/10/2025 8:40 AM EST Office Visit [facility] [address] [place] [address] Win Reyes PA-C [address] [place] [address] 12/10/2025 8:00 AM EDT Office Visit [facility] [address] [place] [address] Edie Pina MD [address] [facility], [address] [place] [address] [email or web address] Maintenance Due Date Last Done Comments COLOGUARD 1999 FOBT 1999 SIGMOIDOSCOPY 1999 VIRTUAL COLONOSCOPY 1999 FIT TEST 05/26/2022 05/26/2021 COVID-19 VACCINE ( season) 2025 06/13/2025, 04/25/2024, 05/02/2023, Additional history exists BLOOD PRESSURE 01/27/2026 07/29/2025 LUNG CANCER SCREENING (LDCT Only) 05/29/2026 05/29/2025, 01/24/2025, 08/24/2022, Additional history exists DEPRESSION SCREENING 06/04/2026 06/04/2025 CREATININE LEVEL 06/17/2026 06/17/2025, 01/2025, 05/29/2025, Additional history exists POTASSIUM LEVEL 06/17/2026 06/17/2025, 01/2025, 05/29/2025, Additional history exists LIPID PANEL 05/29/2030 05/29/2025, 01/06, 01/09/2024, Additional history exists Adult Td,Tdap Booster 09/16/2031 09/16/2021, 011 COLONOSCOPY 02/18/2034 02/19/2024, 02/2023, 10/11/2022, Additional history exists COLORECTAL CANCER SCREENING 02/18/2034 PNEUMOCOCCAL VACCINES (50+ years) Completed 02/18/2021, 12/20/2019, 10/09/2012 HEPATITIS C SCREENING Completed 09/15/2021, 022 ZOSTER VACCINES Completed 11/15/2021, 09/07, 12/27/2016 RSV VACCINE Completed 06/14/2023 INFLUENZA VACCINE Completed 06/13/2025, , 05/02/2023, Additional history exists ABDOMINAL AORTIC ANEURYSM (AAA) SCREENING Completed 08/02/2025, 07/29/2025, 06/01/2021 HEPATITIS A VACCINES Aged Out No long [...] 08/02/2025 9:17 AM EST Intractable abdominal pain CT ABDOMEN/PELVIS Urgent/patient waiting 07/29/2025 11:56 AM EST Intractable abdominal pain Diarrhea, unspecified type OUTSIDE LAB Routine 06/20/2025 11:42 AM EST OUTSIDE LAB Routine 06/19/2025 3:33 PM EST OUTSIDE LAB Routine 06/17/2025 11:39 AM EST OUTSIDE POTASSIUM LEVEL Routine 06/17/2025 OUTSIDE SERUM CREATININE LEVEL Routine 06/17/2025 OUTSIDE IMAGING Routine 06/14/2025 9:16 AM EST [...] EDT Routine general medical examination at a [facility] TSH WITH REFLEX Routine 05/29/2025 8:22 AM EDT Routine general medical examination at a [facility] GLUCOSE, FASTING Routine 05/29/2025 8:22 AM EDT Routine general medical examination at a [facility] facility COMPREHENSIVE METABOLIC PANEL (CMP) Routine 05/29/2025 8:22 AM EDT Routine general medical examination at a [facility] OUTSIDE IMAGING Routine 05/26/2025 5:11 [...] erythematosus tumidus History of pneumonia Chronic fatigue HC BLOOD OCCULT FECAL HGB DETER IA QUAL FECES 1-3 Routine 05/26/2021 7:23 PM EDT Screen for colon cancer from Last 3 Months or Most Recently Relevant to Health Maintenance Results * CT ABDOMEN/PELVIS WITH CONTRAST (08/02/2025 [...] clinician's provided indication for this examination in [facility]: * Abdominal pain, acute, nonlocalized TECHNIQUE: Multidetector-row [...] clinician's provided indication for this examination in [facility]: *Abdominal pain, acute, nonlocalized TECHNIQUE: Multidetector-row CT [...] bowel obstruction, biliary ductal dilatation or hydronephrosis. Result [facility] Beto Ball MD IMG CT ABD/PELVIS Final Result * Outside Lab (Non-MGB) (06/20/2025 11:42 AM EST) Only the most recent of3 resultswithin the time period is included. Result [facility] Provider LAB BLOOD BKR ORDERABLES Final Result * Outside Potassium Level (06/17/2025) Only the most recent of2 resultswithin the time period is included. Potassium level - External 4.2 3.4 - 5.0 mmol/L Result [facility] LAB BLOOD ORDERABLES Joi l Result * (ABNORMAL) Outside Serum Creatinine Level (06/17/2025) Only the most recent of2 resultswithin the time period is included. Creatinine, serum - External 2.26(A) 0.8 - 1.3 mg/dL Result [facility] LAB BLOOD ORDERABLES Joi l Result * Outside Imaging Report Only (06/14/2025 9:16 AM EST) us Historical Provider [facility] XR CHEST Final Res ult * Outside XR??Chest Report Only (06/14/2025 7:55 AM EST) Historical Provider [facility] XR CHEST Final Res ult * Immunoglobulin E, Total (06/12/2025 11:49 AM EST) Immunoglobulin E, Total 11 0 - 100 IU/ml 06/14/2025 2:55 PM EST [facility] Blood 06/12/2025 11:4 9 AM EST 06/12/2025 11:49 AM EST Narrative [facility] - 06/14/2025 2:55 PM EST Some individuals with allergies have low total IgE but high concentration of allergen-specific IgE and may even suffer anaphylaxis with low to undetectable concentrations of IgE or allergen-specific IgE antibodies. Win Reyes PA-C LAB BLOOD BKR ORDERABLES Joi schwartz Result [address] [address] * (ABNORMAL) Comprehensive Metabolic Panel (CMP) (06/12/2025 11:49 AM EST) Only the most recent of2 resultswithin the time period is included. Pathologist [facility] Sodium 141 136 - 145 mmol/L 06/12/2025 9:02 PM [facility] Potassium 4.1 3.4 - 5.1 mmol/L 06/12/2025 9:02 PM [facility] Chloride 103 98 - 107 mmol/L 06/12/2025 9:02 PM [facility] CO2 25 20 - 31 mmol/L 06/12/2025 9:02 PM [facility] Anion Gap 13 3 - 17 mmol/L 06/12/2025 9:02 PM [facility] BUN 9 6 - 23 mg/dL 06/12/2025 9:02 PM [facility] Creatinine 0.90 0.60 - 1.30 mg/dL 06/12/2025 9:02 PM [facility] eGFR 91 >59 mL/min/1.7 3m2 06/12/2025 9:02 PM [facility] Comment:Estimated glomerular filtration rate calculated using the CKD-EPI refit equation. Glucose 156(H) 70 - 99 mg/dL 06/12/2025 9:02 PM [facility] Calcium 9.6 8.5 - 10.5 mg/dL 06/12/2025 9:02 PM [facility] AST 28 <40 U/L 06/12/2025 9:02 PM [facility] ALT 23 <50 U/L 06/12/2025 9:02 PM [facility] Alkaline Phosphatase 91 40 - 130 U/L 06/12/2025 9:02 PM [facility] Bilirubin, Total 0.9 0.0 - 1.2 mg/dL 06/12/2025 9:02 PM [facility] Total Protein 6.5 6.4 - 8.3 g/dL 06/12/2025 9:02 PM [facility] Albumin 4.0 3.5 - 5.2 g/dL 06/12/2025 9:02 PM [facility] Globulin 2.5 1.9 - 4.1 g/dL 06/12/2025 9:02 PM [facility] Blood 06/12/2025 11:4 9 AM EST 06/12/2025 11:49 AM EST us Edie Pina MD LAB BLOOD BKR ORDERABLES Final Result Performing Organization Address City/State/[facility] Co de Phone Number [address] [address] * Prostate Specific Antigen (PSA), Monitoring (06/12/2025 11:49 AM EST) PSA Monitoring 1.60 ng/mL 06/12/2025 9:07 PM [facility] Comment:Post radical prostat ectomy results should be <0.1 ng/mL. Post therapy for other types of treatment should be <1.0 ng/mL. Blood (Blood) Venipuncture / Unknown 06/12/2025 11:49 AM EST 06/12/2025 11:49 AM EST [facility] - 06/12/2025 9:07 PM EST Test performed by [employer] electrochemiluminescent immunoassay (ECLIA). Results obtained by assays using different manufacturers or methods may not be comparable and cannot be used interchangeably for patient monitoring. us Win Reyes PA-C LAB BLOOD BKR ORDERABLES Joi l Result [address] [address] * (ABNORMAL) CBC and Differential (06/12/2025 11:49 AM EST) WBC 9.09 4.00 - 11.00 K/uL 06/12/2025 8:45 PM [facility] RBC 3.98(L) 4.50 - 5.90 M/uL 06/12/2025 8:45 PM [facility] Hemoglobin 12.1(L) 13.5 - 17.5 g/dL 06/12/2025 8:45 PM [facility] [facility] Hematocrit 37.4(L) 41.0 - 53.0 % 06/12/2025 8:45 PM [facility] MCV 94.0 80.0 - 100.0 fL 06/12/2025 8:45 PM [facility] MCH 30.4 27.0 - 31.0 pg 06/12/2025 8:45 PM [facility] MCHC 32.4 32.0 - 36.0 g/dL 06/12/2025 8:45 PM [facility] MPV 9.2 8.4 - 12.0 fL 06/12/2025 8:45 PM [facility] RDW-CV 13.8 11.5 - 14.5 % 06/12/2025 8:45 PM [facility] PLT 278 150 - 450 K/uL 06/12/2025 8:45 PM [facility] Neutrophils 71.6 % 06/12/2025 8:45 PM [facility] Lymphocytes 18.2 % 06/12/2025 8:45 PM [facility] Monocytes 7.9 % 06/12/2025 8:45 PM [facility] Eosinophils 1.0 % 06/12/2025 8:45 PM [facility] Basophils 1.1 % 06/12/2025 8:45 PM [facility] Imm Grans 0.2 % 06/12/2025 8:45 PM [facility] NRBC 0.0 <=0.0 /100 WBCs 06/12/2025 8:45 PM [facility] Absolute Neutrophils 6.51 1.92 - 7.60 K/uL 06/12/2025 8:45 PM [facility] Absolute Lymphocytes 1.65 0.72 - 4.10 K/uL 06/12/2025 8:45 PM [facility] Absolute Monocytes 0.72 0.16 - 1.10 K/uL 06/12/2025 8:45 PM [facility] Absolute Eosinophils 0.09 0.00 - 0.50 K/uL 06/12/2025 8:45 PM [facility] Absolute Basophils 0.10 0.00 - 0.15 K/uL 06/12/2025 8:45 PM [facility] Absolute Imm Grans 0.02 0.00 - 0.09 K/uL 06/12/2025 8:45 PM [facility] Absolute NRBC 0.00 <=0.00 K cells/uL 06/12/2025 8:45 PM [facility] Absolute Neutrophils 6.51 1.92 - 7.60 K/uL 06/12/2025 8:45 PM [facility] Comment:Automated cell count . Manual ANC may differ if performed. Diff Type Auto 06/12/2025 8:45 PM [facility] Blood 06/12/2025 11:4 9 AM EST 06/12/2025 11:49 AM EST us Edie Pina MD LAB BLOOD BKR ORDERABLES Final Result [facility] [address] [place] [address] * Erythrocyte Sedimentation Rate (ESR) (06/12/2025 11:49 AM EST) Only the most recent of2 resultswithin the time period is included. ESR 11 0 - 20 mm/h 06/12/2025 9:18 PM [facility] Blood 06/12/2025 11:4 9 AM EST 06/12/2025 11:49 AM EST Narrative [facility] - 06/12/2025 9:18 PM EST Specimen was processed >6 hours from time of collection. Results may be falsely decreased. Recommend repeat with fresh sample, particularly for borderline results. us Edie Pina MD LAB BLOOD BKR ORDERABLES Final Result [address] [address] * C-Reactive Protein (CRP) (06/12/2025 11:49 AM EST) Only the most recent of2 resultswithin the time period is included. C Reactive Protein 6.5 <10.0 mg/L 06/12/2025 9:02 PM [facility] Comment:NOTE: This reference range is for the evaluation of inflammation. Order CRP, High Sensitivity for cardiac risk status evaluation. Blood 06/12/2025 11:4 9 AM EST 06/12/2025 11:49 AM EST us Edie Pina MD LAB BLOOD BKR ORDERABLES Final Result [address] [address] * Magnesium (06/12/2025 11:49 AM EST) Magnesium 1.7 1.7 - 2.6 mg/dL 06/12/2025 9:02 PM [facility] Blood 06/12/2025 11:4 9 AM EST 06/12/2025 11:49 AM EST us Win A Reyes PA-C LAB BLOOD BKR ORDERABLES Joi l Result Performing Organization Address City/[facility]/ZIP Co de Phone Number [address] [address] * Creatine Kinase (CK) (06/12/2025 11:49 AM EST) Only the most recent of2 resultswithin the time period is included. Creatine Kinase (CK) 56 39 - 308 U/L 06/12/2025 9:02 PM EST [facility] Blood 06/12/2025 11:4 9 AM EST 06/12/2025 11:49 AM EST us Edie Pina MD LAB BLOOD BKR ORDERABLES Final Result Performing Organization Address [facility] Co de Phone Number [address] [address] * Glucose, fasting (05/29/2025 8:22 AM EDT) FASTING GLUCOSE 78 70 - 95 mg/dL [facility] Blood 05/29/2025 8:22 AM EDT 05/29/2025 8:28 AM EDT us Win Reyes PA-C LAB BLOOD BKR ORDERABLES Joi l Result Performing Organization Address [facility] Co de Phone Number [address] [address] * TSH with reflex (05/29/2025 8:22 AM EDT) TSH 1.37 0.27 - 4.20 uIU/mL [facility] Blood 05/29/2025 8:22 AM EDT 05/29/2025 8:28 AM EDT us Win Reyes PA-C LAB BLOOD BKR ORDERABLES Joi l Result Performing Organization Address City/[facility]/ZIP Co de Phone Number [address] [address] * Double stranded DNA antibodies (05/29/2025 8:22 AM EDT) ANTI DSDNA ANTIBODY Negative at 1:10 [facility] Comment: Edie Bradford M.D., Director Clinical Immunology Laboratory [id number] Normal: Negative at 1:10 To interpret a negative test for anti-rosebud or double stranded DNA antibodies in a [...] MD LAB BLOOD BKR ORDERABLES Final Result [address] [address] * (ABNORMAL) CBC and differential (05/29/2025 8:22 AM EDT) WBC 9.95 4.00 - 11.00 K/uL [facility] RBC 4.49(L) 4.50 - 5.90 M/uL [facility] HGB 13.6 13.5 - 17.5 g/dL [facility] HCT 42.1 41.0 - 53.0 % [facility] PLT 336 150 - 450 K/uL [facility] MCV 93.8 80.0 - 100.0 fL [facility] MCH 30.3 27.0 - 31.0 pg [facility] MCHC 32.3 32.0 - 36.0 g/dL [facility] RDW 13.0 11.5 - 14.5 % [facility] MPV 9.3 8.4 - 12.0 fL [facility] NRBC 0.00 0.00 /100 WBCs [facility] ABSOLUTE NRBC 0.00 0.00 K/uL [facility] DIFF METHOD Manual [facility] TOTAL CELLS COUNTED 100 [facility] NEUTS 72.0 48.0 - 76.0 % [facility] LYMPHS 20.0 18.0 - 41.0 % [facility] MONOS 6.0 4.0 - 11.0 % [facility] EOS 1.0 0.0 - 5.0 % [facility] MYELOS 1.0(H) 0 % [facility] ABSOLUTE NEUTS 7.16 1.92 - 7.60 K/uL [facility] ABSOLUTE LYMPHS 1.99 0.72 - 4.10 K/uL [facility] ABSOLUTE MONOS 0.60 0.16 - 1.10 K/uL [facility] ABSOLUTE EOS 0.10 0.00 - 0.50 K/uL [facility] ABSOLUTE MYELOS 0.10 K/uL [facility] ALAN CELLS PRESENT(A) None [facility] Blood 05/29/2025 8:22 AM EDT 05/29/2025 8:28 AM EDT Edie Pina MD LAB BLOOD BKR ORDERABLES Final Result [facility] [address] [place] [address] * Complement C3 (05/29/2025 8:22 AM EDT) C3 152 81 - 157 mg/dl [facility] Blood 05/29/2025 8:22 AM EDT 05/29/2025 8:27 AM EDT Edie Pina MD LAB BLOOD BKR ORDERABLES Final Result [address] [address] * (ABNORMAL) Complement C4 (05/29/2025 8:22 AM EDT) C4 51(H) 12 - 39 mg/dL [facility] Blood 05/29/2025 8:22 AM EDT 05/29/2025 8:27 AM EDT us Edie Pina MD LAB BLOOD BKR ORDERABLES Final Result [address] [address] * (ABNORMAL) Lipid panel (05/29/2025 8:22 AM EDT) HDL 54 mg/dL [facility] Comment: Interpretation <40 mg/dL: Low HDL cholesterol (major risk factor for CHD) Greater than or equal to 60 mg/dL: High HDL cholesterol ( negative risk factor for CHD) HDL - cholesterol is affected by a number of factors, e.g. smoking, excerise, hormones, sex and age. CHOLESTEROL 127 0 - 240 mg/dL [facility] TRIGLYCERIDES 67 30 - 160 mg/dL [facility] LDL 60 50 - 129 mg/dL [facility] Comment: LDL levels in terms of risk for coronary heart disease: <100 mg/dL: Optimal 100-129 mg/dL: Near or above optimal 130-159 mg/dL: Borderline high 160-189 mg/dL: High >190 mg/dL: Very High CARDIAC RISK RATIO 2.4(L) 3.4 - 5.0 C [facility] Blood 05/29/2025 8:22 AM EDT 05/29/2025 8:28 AM EDT Win Reyes PA-C LAB BLOOD BKR ORDERABLES Joi l Result [address] [address] * Outside Imaging Report Only (05/26/2025 5:11 PM EDT) us Historical Provider [facility] XR CHEST Final Res ult * Outside XR??Chest Report Only (05/23/2025 10:59 AM EDT) Historical Provider [facility] XR CHEST Final Res ult * Outside CT??Chest Report Only (05/23/2025 10:54 AM EDT) Historical Provider IMG CT CHEST Final Res ult * Outside ALT Level (05/23/2025) ALT - External 27 5 - 30 U/L Historical Provider LAB BLOOD ORDERABLES Joi l Result * COLONOSCOPY FOR RESULT ENTRY ONLY (02/19/2024) Colonoscopy 3 yr recall Historical Provider HEALTH MAINTENANCE Final Result * CT CHEST LUNG CANCER SCREENING INITIAL (08/24/2022 8:37 AM EST) Anatomical Region Laterality Modality Chest Computed Tomogra phy 08/24/2022 8:5 8 AM EST Impressions 08/24/2022 9:16 AM EST [...] C antibody, qualitative (09/15/2021 7:26 AM EST) Pathologist [facility] HCV NON-REACTIV E NON-REACTI VE [facility] Blood 09/15/2021 7:26 AM EST 09/15/2021 7:39 AM EST us Edie Pina MD LAB BLOOD BKR ORDERABLES Final Result [address] [id number] * (ABNORMAL) Fecal immunochemical test x1 (FIT) (05/26/2021 7:23 PM EDT) Pathologist [facility] Immuno Fecal Occult Positive(A ) Negative [facility] Stool (Stool) 05/26/2021 7:2 3 PM EDT 05/26/2021 7:26 PM EDT us Ted Pearl MD LAB BODY FLUIDS AND STOOL ORD ERABLES Final Result [facility] [address] [place] [address] from Last 3 Months or Most Recently Relevant to Health Maintenance Insurance [place] BLUE RE[place] MEDIC[place] BLUE [place] PPO BLUE REPLACEMENT [address] [address] MEDICARE PPO BLUE REPLACEMENT [place] [place] [address] MEDICARE PPO BLUE REPLACEMENT [place] [address] MEDICARE PPO BLUE REPLACEMENT [facility] MEDICARE PPO BLUE REPLACEMENT [facility] MEDICARE PPO BLUE REPLACEMENT [facility] MEDICARE PPO BLUE REPLACEMENT Advance Directives For more information, please contact: [phone] (9AM - 5PM [facility], Monday-Monday) * Full Code (Latest Code Status on File) Date Activated Date Inactivated Comments 06/11/2025 7:54 AM Question Answer Comments Code Status Confirmed With: Patient Code Status Communicated To: PCP Care Teams Clinical Quality Assurance Specialist Relationship Specialty Start Date End Date Win Reyes PA-C [address] [place] [address] PCP - General Physician Cleaning Validation Consultant 04/22/25 Sterling Ware MD Dermatology 12/20/19 Tyrel Amaya MD [address] [place] [address] [place] [address] Pulmonary Disease 02/17/20 Andrzej Garland MD [address] [place] [address] [place] [address] Ophthalmology 04/07/20 Additional Source Comments The information contained in this document represents components of the legal health record. It is not the complete legal health record.[facility]
--- OUTSIDE RECORDS SUMMARY | 2025-08-04 07:28 | XMS_ITS | Encounter Summary ---
Author Organization [facility] Address [address] [facility] [address] [place] [address] Phone Care Team Providers Care Middle School Pe Teacher Name Role Phone Ted Pearl MD Primary Care Provider [phone] Sterling Ware MD Unavailable [phone] Tyrel Amaya MD Unavailable [phone] Andrzej Garland MD Unavailable [phone] Win Reyes PA-C Primary Care Provider [phone] Encounter Details Date Type Department Care Team (Latest Contact Info) Description 01/05/2024 Ancillary Orders [facility] [address] [place] [address] Edie Pina MD [address] [facility], [address] [place] [address] [email or web address] Lupus erythematosus tumidus (Primary Dx); Long-term use [...] Description 09/10/2025 8:40 AM EST Office Visit [facility] [address] [place], [place] [phone] Win Reyes PA-C [address] [place], [place] [phone] 12/10/2025 8:00 AM EDT Office Visit [facility] [address] [place] [address] Edie Pina MD [address] [facility], [address] [place] [address] [email or web address] documented as of this encounter Results [...] with subchondral sclerosis, bony proliferative change, and kmgt-id-[id number] contact is severe in the medial, moderate [...] narrowing with subchondral sclerosis, bonyproliferative change, and yqnr-vn-rgoe contact is severe in the medial,moderate to [...] documented as of this encounter Care Teams Middle School Pe Teacher Relationship Specialty Start Date End Date Ted Pearl MD [address] [place] [address] PCP - General Internal Medicine 12/18/19 04/21/25 Win Reyes PA-C [address] [place] [email or web address] PCP - General Physician Addiction Social Worker 04/22/25 Sterling Ware MD [address] [place] [address] [email or web address] Dermatology 12/20/19 Tyrel Amaya MD [address] [place] [address] [place] [address] Pulmonary Disease 02/17/20 Andrzej Garland MD [address] [place] [address] [place] [address] Ophthalmology 04/07/20 documented as of this encounter Additional Source Comments The information contained in this document represents components of the legal health record. It is not the complete legal health record.[facility]
--- OUTSIDE RECORDS SUMMARY | 2025-08-04 07:28 | XMS_ITS | Encounter Summary ---
Author Organization [facility] Address [address] [facility] [address] [place] [address] Phone Care Team Providers Care Anatomy Teacher Name Role Phone Ted Pearl MD Primary Care Provider [phone] Sterling Ware MD Unavailable [phone] Tyrel Amaya MD Unavailable [phone] Andrzej Garland MD Unavailable [phone] Win Reyes PA-C Primary Care Provider [phone] Encounter Details Date Type Department Care Team (Late st Contact Info) Description 01/30/2025 Ancillary Orders [facility] [address] [place], [place] [phone] Win Reyes PA-C [address] [place], [place] [phone] [email or web address] Fever, unspecified (Primary Dx) Social History Tobacco [...] Description 09/10/2025 8:40 AM EST Office Visit [facility] [address] [place] [address] Win Reyes PA-C [address] [place] [address] [email or web address] 12/10/2025 8:00 AM EDT Office Visit [facility] [address] [place] [address] Edie Pina MD [address] [facility], [address] [place] [address] [email or web address] documented as of this encounter Visit Diagnoses Diagnosis Fever, unspecified- Primary documented in this encounter Additional Health Concerns Assessment Noted Time PHQ-2 Depression Total Score: 0 12/14/19 2:46 PM EDT documented as of this encounter Care Teams Anatomy Teacher Relationship Specialty Start Date End Date Ted Pearl MD [address] [place] [address] [email or web address] PCP - General Internal Medicine 12/18/19 04/21/25 Win Reyes PA-C [address] [place] [email or web address] PCP - General Physician Truck Driver Teamster 04/22/25 Sterling Ware MD [address] [place] [address] [email or web address] Dermatology 12/20/19 Tyrel Amaya MD [address] [place] [address] [place] [address] Pulmonary Disease 02/17/20 Andrzej Garland MD [address] [place] [address] Dr [place], [place] [address] Ophthalmology 04/07/20 documented as of this encounter Additional Source Comments The information contained in this document represents components of the legal health record. It is not the complete legal health record.[facility]
--- OUTSIDE RECORDS SUMMARY | 2025-08-04 07:28 | XMS_ITS | Encounter Summary ---
Author Organization [facility] Address [address] [place] [address] Phone Care Team Providers Care License Registration Examiner Name Role Phone Ted Pearl MD Primary Care Provider [phone] Ted Pearl MD Unavailable [phone] Etienne Lindsey MD Unavailable Ted Pearl MD Unavailable [phone] Ted Pearl MD Primary Care Provider [phone] Sterling Ware MD Unavailable [phone] Tyrel Amaya MD Unavailable Andrzej Garland MD Unavailable [phone] Win Reyes PA-C Primary Care Provider [phone] Encounter Details Date Type Department Care Team (Latest Contact Info) Description 01/22/2018 Transcribe Orders [facility] [address] [place] [address] Anais Goncalves, STEAM TURBINE ASSEMBLER [address] [place] [address] [email or web address] Fever, unspecified fever cause (Primary Dx) [...] Description 09/10/2025 8:40 AM EST Office Visit [facility] [address] [place] [address] Win Reyes PA-C [address] [place] [address] [email or web address] 12/10/2025 8:00 AM EDT Office Visit [facility] [address] [place] [address] Edie Pina MD [address] [place] [address], [address] [place] [address] [email or web address] documented as of this encounter Visit Diagnoses Diagnosis Fever, unspecified fever cause- Primary documented in this encounter Additional Health Concerns Infection Onset Date Last Indicated Resolved Time CoV-Risk 12/23/2019 12/23/2019 01/06/2020 1:24 AM EDT COVID-19 09/19/2023 09/19/2023 10/10/2023 1:21 AM EST CoV-Risk 11/07/2024 11/07/2024 11/18/2024 1:21 AM EDT documented as of this encounter Care Teams License Registration Examiner Relationship Specialty Start Date End Date Ted Pearl MD [address] [place] [address] PCP - General Internal Medicine 09/05/17 12/17/19 Ted Pearl MD [address] [place] [address] PCP - General Internal Medicine 12/18/19 04/21/25 Win Reyes PA-C [address] [place] [address] [email or web address] PCP - General Physician Topstitcher Lockstitch 04/22/25 Ted Pearl MD [address] [place] [address] Insurance Assigned Provider 12/08/18 05/18/19 Etienne Lindsey MD [address] [place] [address] [email or web address] Insurance Assigned Provider 05/18/19 06/08/19 Ted Pearl MD [address] [place] [address] Insurance Assigned Provider 06/08/19 10/11/19 Sterling Ware MD [address] [place] [address] [email or web address] Dermatology 12/20/19 Tyrel Amaya MD [address] [place] [address] [place] [address] Pulmonary Disease 02/17/20 Andrzej Garland MD [address] [place] [address] [place] [address] Ophthalmology 04/07/20 documented as of this encounter Additional Source Comments The information contained in this document represents components of the legal health record. It is not the complete legal health record.[facility]
--- OUTSIDE RECORDS SUMMARY | 2025-08-04 07:28 | XMS_ITS | Encounter Summary ---
Author Organization [facility] Address [address] [address] Phone Care Team Providers Care Senior Executive Assistant Name Role Phone Ted Pearl MD Primary Care Provider [phone] Sterling Ware MD Unavailable [phone] Tyrel Amaya MD Unavailable [phone] Andrzej Garland MD Unavailable [phone] Win Reyes PA-C Primary Care Provider [phone] Encounter Details Date Type Department Care Team (Late st Contact Info) Description 07/08/2022 Procedure Pass [facility], Ct Scan - [address] [address] Social History Tobacco Use Types Packs/Day Years [...] high school, GED, job training, learning the [place] language, technical skills, or developing parenting skills)? [...] Description 09/10/2025 8:40 AM EST Office Visit [facility] [address] [place] [address] Win Reyes PA-C [address] [place] [address] 12/10/2025 8:00 AM EDT Office Visit [facility] [address] [place] [address] Edie Pina MD [address] [facility], [address] [place] [address] [email or web address] documented as of this encounter Visit Diagnoses Not on filedocumented in this encounter Additional Health Concerns Infection Onset Date Last Indicated Resolved Time COVID-19 09/19/2023 09/19/2023 10/10/2023 1:21 AM EST CoV-Risk 11/07/2024 11/07/2024 11/18/2024 1:21 AM EDT Assessment Noted Time PHQ-2 Depression Total Score: 0 07/08/20 22 8:55 AM EST documented as of this encounter Care Teams Senior Executive Assistant Relationship Specialty Start Date End Date Ted Pearl MD [address] [place] [address] PCP - General Internal Medicine 12/18/19 04/21/25 Win Reyes PA-C [address] [place] [address] PCP - General Physician Cancer Program Consultant 04/22/25 Sterling Ware MD [address] [place] [address] Dermatology 12/20/19 Tyrel Amaya MD [address] [place] [address] [place] [address] Pulmonary Disease 02/17/20 Andrzej Garland MD [address] [place] [address] [place] [address] Ophthalmology 04/07/20 documented as of this encounter Additional Source Comments The information contained in this document represents components of the legal health record. It is not the complete legal health record.[facility]
--- OUTSIDE RECORDS SUMMARY | 2025-08-04 07:28 | XMS_ITS | Encounter Summary ---
Author Organization [facility] Address [address] [place] [address] Phone Care Team Providers Care Refining Equipment Operator Name Role Phone Ted Pearl MD Primary Care Provider [phone] Sterling Ware MD Unavailable [phone] Tyrel Amaya MD Unavailable [phone] Andrzej Garland MD Unavailable [phone] Win Reyes PA-C Primary Care Provider [phone] Encounter Details Date Type Department Care Team (Late st Contact Info) Description 01/08/2021 Procedure Pass [facility] [address] [place], [place] [phone] Social History Tobacco Use Types Packs/Day Years [...] Description 09/10/2025 8:40 AM EST Office Visit [facility] [address] [place], [place] [phone] Win Reyes PA-C [address] [place], [place] [phone] 12/10/2025 8:00 AM EDT Office Visit [facility] Rhe[facility] [address] [place] [address] Edie Pina MD [address] [facility], [address] [place] [address] [email or web address] documented as of this encounter Visit Diagnoses Not on filedocumented in this encounter Additional Health Concerns Infection Onset Date Last Indicated Resolved Time COVID-19 09/19/2023 09/19/2023 10/10/2023 1:21 AM EST CoV-Risk 11/07/2024 11/07/2024 11/18/2024 1:21 AM EDT Assessment Noted Time PHQ-2 Depression Total Score: 0 12/20/19 9:41 AM EDT documented as of this encounter Care Teams Refining Equipment Operator Relationship Specialty Start Date End Date Ted Pearl MD [address] [place] [address] [email or web address] PCP - General Internal Medicine 12/18/19 04/21/25 Win Reyes PA-C [address] [place] [address] [email or web address] PCP - General Physician Vice President Residential Solar Sales 04/22/25 Sterling Ware MD [address] [place] [address] [email or web address] Dermatology 12/20/19 Tyrel Amaya MD [address] [place] [address] [place] [address] Pulmonary Disease 02/17/20 Andrzej Garland MD NPI: [id number] [place] [address] [place] [address] Ophthalmology 04/07/20 documented as of this encounter Additional Source Comments The information contained in this document represents components of the legal health record. It is not the complete legal health record.[facility]
--- OUTSIDE RECORDS SUMMARY | 2025-08-04 07:28 | XMS_ITS | Encounter Summary ---
Author Organization [facility] Address [address] [place] [id number] Phone Care Team Providers Care Corn Press Operator Name Role Phone Sterling Ware MD Unavailable [phone] Tyrel Amaya MD Unavailable Andrzej Garland MD Unavailable [phone] Win Reyes PA-C Primary Care Provider [phone] Reason for Referral * MRI/CAT Scan - Closed Specialty Diagnoses / Procedures Referred By Priti lopez Referred To Contact Radiology Diagnoses Intractable abdominal pain Procedures CT Abdomen/Pelvis CHG CT SCAN,ABDOMENT AND PELVIS,W/O CONTRAST CHG CT SCAN,ABDOMENT AND PELVIS,W CONTRAST CHG CT SCAN,ABDOMENT AND PELVIS,COMBO Beto Ball MD [address] [place] [address] Phone: tel: fax: [email or web address] Referral ID Status Reason Start Date Expiration Date Visits Re quested Visits Authorized [id number] Closed 08/01/2025 10/26/2025 1 1 Encounter Details Date Type Department Care Team (Late st Contact Info) Description 08/01/2025 Telephone [facility] [address] [place] [address] [phone] Beto Ball MD [address] [place] [address] [phone] [email or web address] Social History Tobacco Use Types Packs/Day Years [...] as of this encounter Progress Notes * Constance Scherer RN - 08/01/2025 9:46 AM EST Noted. * Leon Gomez - 08/01/2025 8:58 AM EST Patient scheduled 08/02 at [facility]. Patient very appreciative * Beto Ball MD - 08/01/2025 8:[address] scan reordered to [facility] documented in this encounter Plan of Treatment Upcoming Encounters Date Type Department Care Team (Late st Contact Info) Description 09/10/2025 8:40 AM EST Office Visit [facility] [address] [place] [address] Win Reyes PA-C [address] [place] [address] [email or web address] 12/10/2025 8:00 AM EDT Office Visit [facility] [address] [place] [address] [place] [address] Edie Pina MD [address] [place] [address], [address] [place] [address] [email or web address] documented as of this encounter Results * CT ABDOMEN/PELVIS WITH [...] ductal dilatation or hydronephrosis. Beto Ball MD IMG CT ABD/PELVIS Final Result documented in this encounter Visit Diagnoses Diagnosis Intractable abdominal pain- Primary Intractable abdominal pain documented in this encounter Additional Health Concerns Assessment Noted Time PHQ-2 Depression Total Score: 0 06/04/20 25 5:11 PM EDT documented as of this encounter Care Teams Corn Press Operator Relationship Specialty Start Date End Date Win Reyes PA-C [address] [place] [address] [email or web address] PCP - General Physician Entry Level Buyer 04/22/25 Sterling Ware MD Dermatology 12/20/19 Tyrel Amaya MD [address] [place] [address] [place] [address] Pulmonary Disease 02/17/20 Andrzej Garland MD [address] [place] [address] [place] [address] Ophthalmology 04/07/20 documented as of this encounter Additional Source Comments The information contained in this document represents components of the legal health record. It is not the complete legal health record.[facility]
--- OUTSIDE RECORDS SUMMARY | 2025-08-04 07:28 | XMS_ITS | Encounter Summary ---
Author Organization [facility] Address [address] [place] [phone] Phone Care Team Providers Care Oven Technician Name Role Phone Sterling Ware MD Unavailable [phone] Tyrel Amaya MD Unavailable [phone] Andrzej Garland MD Unavailable Win Reyes PA-C Primary Care Provider [phone] Encounter Details Date Type Department Care Team (Late st Contact Info) Description 08/01/2025 Procedure Pass [facility], Ct Scan - [address] [address] Social History Tobacco Use Types Packs/Day Years [...] Visit [facility] [address] [place] [address] Win Reyes PA-C [address] [place] [address] 12/10/2025 8:00 AM EDT Office Visit [facility] [address] [place] [address] Edie Pina MD [address] [facility], [address] [place] [address] [email or web address] documented as of this encounter Visit Diagnoses Not on filedocumented in this encounter Additional Health Concerns Assessment Noted Time PHQ-2 Depression Total Score: 0 06/04/20 25 5:11 PM EDT documented as of this encounter Care Teams Oven Technician Relationship Specialty Start Date End Date Win Reyes PA-C [address] [place] [email or web address] PCP - General Physician Dance Instructor 04/22/25 Sterling Ware MD Dermatology 12/20/19 Tyrel Amaya MD [address] [place] [address] [place] [id number] Pulmonary Disease 02/17/20 Andrzej Garland MD [address] [place] [address] [place] [id number] Ophthalmology 04/07/20 documented as of this encounter Additional Source Comments The information contained in this document represents components of the legal health record. It is not the complete legal health record.[facility]
== END 2025-08-04 07:26 ==
LOC: HO.CT 07:25
PROVIDERS: PCP Internal Medicine; Visit Provider Physician Assistant Surgical
DX: J18.8 Other pneumonia, unspecified organism (principal)
CPT/HCPCS: 71250

== ENCOUNTER → 2025-08-04 07:28 | Outpatient (BNV) | payer MEDICARE, SELFPAY | PROVIDERS: PCP Internal Medicine; Visit Provider Specialist | DX: J18.9 Pneumonia, unspecified organism (principal); K76.0 Fatty (change of) liver, not elsewhere classified | CPT/HCPCS: 71250 ==